=== PATIENT | male | born 1940 | race Caucasian/White ===

== ENCOUNTER → 2023-10-28 07:03 | Outpatient (REF) | payer MEDICARE, OTHER, SELFPAY ==
[2023-10-28] VITALS (8 sets, daily range): BP systolic 55–146; BP diastolic 40–72
[2023-10-28 07:42] LABS: Glucose - Point of Care 110 mg/dl (70-99)
[2023-10-28] MEDS: VANCOCIN 300 ML IV (08:14)
[2023-10-28] MEDS: VANCOCIN 300 MG IV (08:14)
[2023-10-28 10:15] LABS: Glucose - Point of Care 128 mg/dl (70-99)
== END ==
LOC: RADI 07:03
PROVIDERS: ATTENDING PHYSICIAN Internal Medicine Hematology & Oncology; FAMILY PHYSICIAN Family Medicine
DX: C34.12 Malignant neoplasm of upper lobe, left bronchus or lung (principal)
CPT/HCPCS: 36561; 76937; 77001; 82962; 99152; 99153; C1769; C1788

== ENCOUNTER 2023-11-18 19:05 | Inpatient (IN) | payer MEDICARE, OTHER, SELFPAY ==
[2023-11-18] VITALS (7 sets, daily range): BP systolic 102–152; BP diastolic 46–78; BMI 32.6
[2023-11-18 14:56] LABS: COVID-19 Antigen Negative (Negative)
--- NOTE | 2023-11-18 16:22 | ED.GENMED ---
History of Present Illness
General
Chief Complaint: Swelling
Time Seen by Provider: 11/18/23 16:17
Travel History
Have you had any contact with someone who has COVID-19?: No
Do you have any symptoms of coronavirus? Fever > 100 degrees, chills, cough, shortness of breath, sore throat, loss of taste or smell, muscle aches, or headache?: No
History of Present Illness
History of Present Illness:
HPI: Patient presents with bilateral lower extremity edema over the last several days and is also associated with shortness of breath. He has a history of lung cancer. He says that around the time he had bypass years ago he went into heart
failure. Recently, he said he is had 10 pounds of unintentional weight gain, Dr. Ferguson here for centimeter for further evaluation. He reports having a fever but is afebrile currently and says he had some UTI type of symptoms recently as well.
EXAM:
GENERAL: The patient appears volume overloaded but does not appear to be a significant distress. He is reportedly 81 send on room air upon arrival
HEENT: Moist oral mucosa
CARDIOVASCULAR: No murmurs, normal heart rate and rhythm, No chest wall tenderness
PULMONARY: No respiratory distress but is currently on nasal cannula oxygen, breath sounds are diminished at the bases more so on the right, some rales on the left base
ABDOMEN: Soft with no peritoneal signs, no tenderness
NEUROLOGIC: Excellent strength all extremities, no coordination deficits
PSYCHIATRIC: Appropriate mental status, normal insight and judgement
EXTREMITIES: Nontender, 4+ bilateral edema, moves all extremities equally
SKIN: No rash, no lesions
ED COURSE:
4:30 PM: I initially evaluated patient
NUMBER AND COMPLEXITY OF PROBLEMS ADDRESSED AT THE ENCOUNTER
� Chronic conditions affecting care: Diabetes, has had spontaneous pneumothorax in the past, lung cancer, has had cardiac arrest, CHF, CAD/AR, high blood pressure, hyperlipidemia, CKD
� Acute Exacerbation and/or Progression of Chronic Illness: This is an acute problem
� Differential Diagnosis includes: Pulmonary edema, heart failure, pneumonia, venous stasis
AMOUNT AND/OR COMPLEXITY OF DATA TO BE REVIEWED AND ANALYZED
� I performed an independent evaluation of and my interpretation is:
EKG: Sinus 81, leftward axis deviation, right bundle branch block, inferior Q waves, no significant change from 09/14/2023
CT:
X-rays: I personally reviewed x-ray�chest x-ray again shows port and mass in the left upper lobe
Laboratory Studies: White count elevated 25,000, creatinine 1.7 which is near baseline, BNP 1140
Other:
� Review of other/old records: Echo from 10/22/2022 showed EF of 65 to 70%, 'diastolic function indeterminate'
� Clinical information was obtained by an independent historian: I spoke to the daughter at bedside
� Prescriptions/Medications Considered but not given:
� Further testing considered but not performed:
RISK OF COMPLICATIONS AND/OR MORBIDITY OR MORTALITY OF PATIENT MANAGEMENT
� Social determinants of health affecting care: Lives at home
� Discussion with other providers: Notified cardiology; hospitalist for admission at 5:43 PM
� Escalation of care including admission/observation vs risk of discharge considered: The patient was sent here by cardiology for hospitalist. Eddie hawkins. Leukocytosis is noted however his mental status is excellent. Will
give broad-spectrum antibiotics. Vancomycin was given as he does have a port and Invanz was given as he does have a cephalosporin allergy and I chose not to use a quinolone as he does have renal insufficiency.
Past History
Past History
ED Past Medical History: CAD, HTN, Hypercholesterolemia, Renal failure, Other (BPH, urinary retention), Other (Peripheral arterial disease) and Other (V tach/V-fib arrest, AR, CAD, CABG, PCI LM and LCx 06/2015, A-fib, PVD with multiple peripheral
interventions including bypass, AAA)
ED Past Surgical History: Cardiac (CABG x 26 Apr 2015, Bilateral carotid endarterectomies 2018, ), Cholecystectomy and Other (Vascular lower extremity bypass)
Social History
Tobacco: Former smoker
Alcohol: None
Drug: None
Personal:
Living: with family
Phy Exam
Physical Exam
Physical Exam:
See HPI
Scores
Heart Failure Risk
Heart Failure Risk Score: Not Applicable
Course
Orders/Labs/Results
Orders:
Orders
11/18/23 14:11
Electrocardiogram (*1) Urgent
Reason for Study: Shortness of Breath
11/18/23 14:12
EKG- Treatment ONCE
11/18/23 14:18
COVID-19 Antigen Urgent
Source: Nasal Swab
Influenza A+B Rapid Molecular Urgent
RADHA Source: Nasal Swab
Specimen Description:
11/18/23 16:38
Furosemide [Lasix] 40 mg IV NOW STA
11/18/23 16:41
Chest [CR Chest - 2 Views ] Urgent
Comment:
Reason For Exam: hypoxia, sob
11/18/23 16:42
Complete Blood Count/With Diff Urgent
Comprehensive Metabolic Panel Urgent
NT-proBNP Urgent
11/18/23 16:54
Urinalysis Reflex To Culture Urgent
Date Specimen was Collected: 11/18/23
Time Specimen was Collected: 16:41
Urine Microscopic Reflex Cult Urgent
Urine Culture Urgent
RADHA Source: U
Specimen Description:
Date Specimen was Collected: 11/18/23
Time Specimen was Collected: 16:41
11/18/23 17:49
Lactic Acid Q4H
Comment: CANCEL 2nd LACTIC ACID IF 1st LACTIC ACID IS LESS THAN 2
Blood Culture Q30M
RADHA Source: Blood/Venous
Specimen Description:
11/18/23 17:54
Blood Culture Q30M
RADHA Source: Blood/Venous
Specimen Description:
11/18/23 17:56
Ertapenem [Invanz] 1,000 mg 0.9% Sodium Chloride [Nss] 50 ml IV NOW
11/18/23 17:58
Vancomycin [Vancocin] 2,000 mg 0.9% Sodium Chloride 500 ml [Nss] 500 ml IV NOW
Abnormal Lab Results
11/18/23 11/18/23
16:42 16:54
WBC 25.3 H 10^3/uL
(4.8-10.8)
RBC 3.37 L 10^6/uL
(4.70-6.10)
Hgb 10.0 L g/dL
(13.0-18.0)
Hct 30.4 L %
(39.0-52.0)
MCHC 32.9 L g/dL
(33.0-37.0)
RDW 15.2 H %
(11.5-14.5)
Abs Immat Gran (auto) 0.4 H 10^3/uL
(0-0.05)
Absolute Neuts (auto) 20.9 H 10^3/uL
(1.4-6.5)
Absolute Monos (auto) 1.7 H 10^3/uL
(0.1-0.6)
Absolute Eos (auto) 0.8 H 10^3/uL
(0-0.7)
Immature Gran % 1.7 H %
(0-0.5)
Neutrophils % 82.3 H %
(42.2-75.2)
Lymphocytes % 5.9 L %
(20.5-51.1)
BUN 31 H mg/dl
(9-20)
Creatinine 1.7 H mg/dL
(0.7-1.3)
Albumin 3.4 L g/dl
(3.5-5.0)
Urine Nitrite (Reflex) Positive A
(Negative)
Leukocyte Esterase Rfl 2+ A
(Negative)
Urine WBC (Reflex) 21-25 A /HPF
(0-5)
Urine Bacteria (Reflex) Many A
(Negative)
11/18/23 16:42
11/18/23 16:42
Vital Signs
Initial and Last Documented VS:
Initial Vital Signs
Temp Pulse Resp BP Pulse Ox
98.1 F 77 18 123/57 92
11/18/23 14:07 11/18/23 14:07 11/18/23 14:07 11/18/23 14:07 11/18/23 14:07
Last Documented Vital Signs
Temp Pulse Resp BP Pulse Ox
101.5 F H 90 22 143/63 89
11/18/23 18:18 11/18/23 18:15 11/18/23 18:15 11/18/23 18:01 11/18/23 18:15
*Critical Care Note
Total Time (30-74mins, 75-104mins- exclusive of procedures): Not Applicable
ED Attending Note
-
Portions of this chart may have been created with voice recognition software.� Occasional wrong word or��sound alike� substitutions may have occurred due to the inherent limitations of voice recognition software.
Discharge Plan
Departure
Patient Disposition: Admit
Date of Disposition: 11/18/23
Time of Disposition: 17:33
Presentation/result/management discussed w/ accepting MD/DO: Hospitalist
Discharge Problem:
Heart failure
Prescriptions:
No Action
aspirin [Adult Low Dose Aspirin] 81 MG tablet,delayed release (DR/EC)
81 mg PO DAILY@1600
furosemide 20 MG tablet
20 mg PO BID@0800,1600
rosuvastatin [Crestor] 40 MG tablet
40 mg PO DAILY@1600
insulin glargine [Lantus U-100 Insulin] 1,000 UNITS/10 ML solution
35 units SC HS
psyllium Packet
1 packet PO QPM Qty: 0
tamsulosin 0.4 mg Capsule
0.4 mg PO BID
losartan 100 mg Tablet
100 mg PO DAILY@1600
clopidogrel [Plavix] 75 mg Tablet
75 mg PO DAILY@1600
glipizide 5 mg Tablet Extended Release 24hr
5 mg PO BID@0800,1700
Visbiome 112.5 billion cell Capsule
1 cap PO DAILY
azelastine 137 mcg (0.1 %) Aerosol,[place]
1 spray INTRANASAL BID
cholecalciferol (vitamin D3) [Vitamin D3] 50 mcg (2,000 unit) Tablet
100 mcg PO DAILY
guaifenesin [Mucinex] 600 mg Tablet Extended Release 12hr
600 mg PO BID
diphenhydramine-acetaminophen [Tylenol PM Extra Strength] 25-500 mg Tablet
1 tab PO HS
acetaminophen [Tylenol 8 Hour] 650 mg tablet extended release
650 mg PO Q8H PRN (Reason: prostate)
Interventions
Interventions:
*Risk Screen - Suicide Last Done: 11/18/23 18:10
*General Assessment Last Done: 11/18/23 14:07
*Neglect/Abuse Screening Last Done: 11/18/23 18:10
*ED COVID-19 Vaccine History Last Done: 11/18/23 14:07
ED- Cardiac Assessment Last Done: 11/18/23 16:45
ED- Pulmonary Assessment Last Done: 11/18/23 16:45
ED-Skin Assessment Last Done: 11/18/23 16:46
[2023-11-18 16:48] LABS: % Basophils 0.4 % (0-2); % Immature Granulocytes 1.7 % (0-0.5); % Lymphocytes 5.9 % (20.5-51.1); % Monocytes 6.7 % (1.7-9.3); % Neutrophils 82.3 % (42.2-75.2); Absolute Basophils 0.1 10^3/uL (0-0.2); Absolute Eosinophils 0.8 10^3/uL (0-0.7); Absolute Immature Granulocytes 0.4 10^3/uL (0-0.05); Absolute Lymphocytes 1.5 10^3/uL (1.2-3.4); Absolute Monocytes 1.7 10^3/uL (0.1-0.6); Absolute Neutrophils 20.9 10^3/uL (1.4-6.5); Hematocrit 30.4 % (39.0-52.0); Mean Corp Hgb Conc. 32.9 g/dL (33.0-37.0); Mean Corpuscular Hgb 29.7 pg (27.0-31.0); Mean Corpuscular Volume 90.2 fL (80.0-94.0); Mean Platelet Volume 9.5 fL (7.4-10.4); Nucleated Red Blood Cells % 0 % (-); Platelet Count 282 10^3/uL (130-400); Red Blood Cell Count 3.37 10^6/uL (4.70-6.10); Red Cell Dist. Width 15.2 % (11.5-14.5); White Blood Cell Count 25.3 10^3/uL (4.8-10.8)
[2023-11-18 16:59] LABS: Urine Albumin Negative (Neg - Trace); Urine Bilirubin Negative (Negative); Urine Character Clear (Clear); Urine Color Yellow; Urine Glucose Negative (Negative); Urine Ketone Negative (Negative); Urine Leukocyte 2+ (Negative); Urine Nitrite Positive (Negative); Urine Occult Blood Negative (Negative); Urine Urobilinogen Negative (Neg - 1+)
[2023-11-18 17:05] LABS: ALT (SGPT) 19 U/L (0-50); AST (SGOT) 25 U/L (17-59); Albumin 3.4 g/dl (3.5-5.0); Alkaline Phosphatase 112 U/L (38-126); Blood Urea Nitrogen 31 mg/dl (9-20); Calcium 8.6 mg/dl (8.4-10.2); Carbon Dioxide 23 mmol/L (22-30); Chloride 104 mmol/L (98-107); Glucose 90 mg/dl (70-99); Potassium 4.4 mmol/L (3.5-5.1); Sodium 135 mmol/L (135-145); Total Bilirubin 0.5 mg/dl (0.2-1.3); eGFR 39.75
[2023-11-18 17:07] LABS: Urine Red Blood Cell 0-2 /HPF (0-2)
[2023-11-18 17:08] LABS: Urine Bacteria Many (Negative); Urine White Cell 21-25 /HPF (0-5)
[2023-11-18 17:13] LABS: NT-proBNP 1140 pg/ml
[2023-11-18] MEDS: LASIX 40 MG IV (17:50)
[2023-11-18 18:10] LABS: Lactic Acid 0.9 mmol/L (0.7-2.0)
[2023-11-18] MEDS: INVANZ 60 MG IV (18:22)
--- NOTE | 2023-11-18 18:24 | HPS.HSE ---
Addendum entered and electronically signed by Manjula Knott MD 11/19/23 06:09:
I saw and examined the patient.
The FOUNDER AND CEO or PA's� H&P note was reviewed and I agree with the note.
Comment: 83 years old male presented with weakness, weight gain and fever for 1 day duration
Physical Exam
General: Other (no acute distress, conversant)
HEENT: Moist mucous membranes and PERRLA
Respiratory: Clear; No Wheezes, Rales or Rhonchi
Cardiac: S1/S2 and Regular Rhythm; No Murmur
GI: Soft, Non Distended, Normal Bowel Sounds.
Musculoskeletal: No Clubbing, No Cyanosis and No Edema
Neuro: AO x 3, followed commands.
Psych: Calm; No agitation.
Assessment and plan
# Fever
Admit the patient to the hospital.� Patient reported dysuria.� No gastrointestinal symptoms.� No hypoxia.� No coughing at home.� He reported weight gain and exertional shortness of breath but not unusual for him.
Blood culture, urine test and urine culture.� Start the patient on broad-spectrum antibiotic.� Monitor temperature curve and white blood cell count.� Order chest x-ray. �COVID test is negative.� Negative lactic acid.
# Suspected acute on chronic heart failure with a preserved ejection fraction
Patient complained of weight gain.� Decreasing urine.� He reported he received different brand of furosemide and he was not urinating enough.� He used his 's medicine and voided more.
Start the patient on IV Lasix 40 mg twice daily.� Continue home medication.� Monitor weight.
# Chronic kidney disease stage IIIb.� Creatinine 1.9 in August 2023, creatinine is 1.7 upon admission.� Monitor renal function while on diuretics.
# History of BPH and obstruction.� Monitor for urinary retention.� Ordered a bladder scan
# History of coronary artery disease.� No chest pain.
#Paroxysmal atrial fibrillation.� Continue with rate control.
#Primary hypertension
#Diabetes.� Insulin sliding scale.
# PVD and carotid artery disease
Total time spent to see the patient, examine the patient on the floor, review data and lab results, discuss treatment plan with patient, nursing staff, ER doctor around 75 minutes
Original Note:
Family Physician
-
Family Physician: Rodrigo Villa
Chief Complaint
-
Shortness of breath and lower ext edema
History of Present Illness
Pt is an 83yo M w/ a PMH of HTN, HLD, CHF, Cardiac Arrest, CAD/FL, Lung Cancer (Last chemo on 10/31/23, received q3 weeks), CKD-III, and DM-II who is presenting to the ED c/o SOB and lower extremity edema x 3 days. The patient states that he was
seen by his Oncologist this AM and concern regarding his peripheral edema was discussed. Pt noted he already had cardiology appt scheduled for this afternoon so Onc agreed to let him go to that appt. Mortgage Operations Manager sent pt to ED after visit. The
patient reports SOB x 3days which is worse at rest and when laying down. He states he noticed an increased weight change which he estimates to be around 10lbs over the last 2-3 days. He admits to fever with a Tmax of 101.1F last night. He admits to
chills, sweats, abdominal distention, burning with urination and decreased appetite x 2-3 days. Pt denies chest pain, abdominal pain, nausea or vomiting, hematuria or difficulty urinating.
Medical History
Past Medical History
Past Medical History: Reports Other
Additional Past Medical History:
Coronary Artery Disease s/p CABG and Stent
Carotid Artery Stenosis s/p Bilateral Carotid Endarterectomy
Peripheral Artery Disease s/p Bilateral Lower Ext Bypass
V. Tach Arrest
Paroxysmal Atrial Fibrillation
Essential Hypertension
Hyperlipidemia
Diabetes Mellitus, Type II
CKD Stage III
BPH
Obstructive Sleep Apnea
Squamous Cell Lung Cancer s/p Radiation, currently on chemotherapy
Past Surgical History: Reports Other
Additional Past Surgical History:
CABG
Bilateral Carotid Endarterectomy
Bilateral Lower Extremity Bypass
Cholecystectomy
Social History
Tobacco: Former Smoker
Alcohol: None
Drug: None
Family History
Family History: Not pertinent
Allergies / Home Medications
Allergies reflects when Allergies were last updated in [facility].
Home Medications with original date entered in [facility]
Allergy/Medication List:
Allergies
Allergy/AdvReac Type Severity Reaction Status Date / Time
ZACHARY Inhibitors Allergy Shortness Verified 11/18/23 14:11
of
Breath-possible
angioedema-pharm
to review
cephalexin Allergy Rash Verified 11/18/23 14:11
cephalexin monohydrate Allergy Rash Verified 11/18/23 14:11
[From Keflex]
Iodinated Contrast Media Allergy affected Verified 11/18/23 14:11
[Iodinated Contrast Media - kidneys
Oral and]
sulfamethoxazole Allergy Rash Verified 11/18/23 14:11
[From Bactrim]
trimethoprim [From Bactrim] Allergy Rash Verified 11/18/23 14:11
Home Medications
aspirin 81 mg tablet,delayed release (Adult Low Dose Aspirin) 81 mg PO DAILY@1600 Blood clot prevention/tx 01/22/19
furosemide 20 mg tablet 20 mg PO BID@0800,1600 Fluid retention/Swelling 01/22/19
rosuvastatin 40 mg tablet (Crestor) 40 mg PO DAILY@1600 High cholesterol 01/22/19
insulin glargine 100 unit/mL subcutaneous solution (Lantus U-100 Insulin) 35 units SC HS Diabetes 03/07/20
losartan 100 mg tablet 100 mg PO DAILY@1600 Blood pressure 07/15/22
psyllium 1 packet PO QPM Constipation ##0 07/15/22
tamsulosin 0.4 mg capsule 0.4 mg PO BID Urinary issue 07/15/22
clopidogrel 75 mg tablet (Plavix) 75 mg PO DAILY@1600 Blood clot prevention/tx 10/22/22
Lactobac no.2-Bifidobac no.1-S. thermo 112.5 billion cell capsule (Visbiome) 1 cap PO DAILY Supplement 11/17/22
glipizide 5 mg tablet, extended release 24 hr 5 mg PO BID@0800,1700 Diabetes 11/17/22
azelastine 137 mcg (0.1 %) nasal spray aerosol 1 spray intranasal BID 09/14/23
cholecalciferol (vitamin D3) 50 mcg (2,000 unit) tablet (Vitamin D3) 100 mcg PO DAILY 09/14/23
guaifenesin 600 mg tablet, extended release 12 hr (Mucinex) 600 mg PO BID 09/14/23
diphenhydramine 25 mg-acetaminophen 500 mg tablet (Tylenol PM Extra Strength) 1 tab PO HS 10/28/23
acetaminophen 650 mg tablet,extended release (Tylenol 8 Hour) 650 mg PO Q8H PRN prostate 11/18/23
Review of Systems
-
A 12 point ROS was completed and negative except as noted: Yes
Constitutional: Reports Fever
Respiratory: Reports Trouble Breathing
Cardiac: Denies Chest Pain
: Reports Dysuria
Musculoskeletal: Reports Edema
Physical Exam
Vital Signs
Vital Signs
Temp Pulse Resp BP Pulse Ox
101.5 F H 90 22 143/63 89
11/18/23 18:18 11/18/23 18:15 11/18/23 18:15 11/18/23 18:01 11/18/23 18:15
Physical Exam
General: Comfortable, Conversant and Other (Some conversational dyspnea with oxygen saturation dipping to 89% on 2L)
HEENT: Oxygen (Nasal Cannula)
Respiratory: Rales (Right Base) and Other (Decreased breath sounds left base)
Cardiac: S1/S2 and Regular Rhythm
GI: Soft and Non Tender
Rectal: Other
Musculoskeletal: No Clubbing, No Cyanosis and Other (+4 pitting edema bilateral lower extremities)
Skin: Warm and Dry
Neuro: Awake, Alert and Oriented
Psych: Calm
Laboratory Results
-
11/18/23 16:42
11/18/23 16:42
Laboratory Results
Lactic Acid Cancelled 11/18/23 21:45
Total Bilirubin 0.5 mg/dl (0.2-1.3) 11/18/23 16:42
AST 25 U/L (17-59) 11/18/23 16:42
ALT 19 U/L (0-50) 11/18/23 16:42
Alkaline Phosphatase 112 U/L (38-126) 11/18/23 16:42
Impression/Plan
-
Acute Hypoxic Respiratory Insufficiency secondary to Acute Heart Failure and Sepsis
-Continue supplemental oxygen
-Attempt to wean prior to discharge
Acute Heart Failure with preserved EF
-Consult Cardiology
-Continue Lasix 40mg IV BID
-Monitor Is&Os and Daily Weights
Sepsis, possibly related to UTI
-Continue vancomycin and meropenem
-Await urine and blood cultures
Coronary Artery Disease s/p CABG and Stent
Carotid Artery Stenosis s/p Bilateral Carotid Endarterectomy
Peripheral Artery Disease s/p Bilateral Lower Ext Bypass
-Continue aspirin and Plavix
Paroxysmal Atrial Fibrillation
-Patient is not on anticoagulation as outpatient
-Monitor on Telemetry
Essential Hypertension
-Continue losartan
Hyperlipidemia
-Continue Crestor
Diabetes Mellitus, Type II
-Continue Lantus
-Hold Glipizide
-Monitor sugars and continue coverage insulin
CKD Stage III
-Monitor creatinine closely while on diuretics
BPH
-Continue Flomax
-Monitor bladder scans
Squamous Cell Lung Cancer s/p Radiation and Chemotherapy
-Last Chemo October 31
-Follows with [facility]
DVT proph: Lovenox
Code Status: Full Code
--- NOTE | 2023-11-18 18:27 | W.PN.UPDATE ---
Update Note
Progress Note Update
I saw and examined the patient.
The CANVASS MANAGER or PA's H&P note was reviewed and I agree with the note.
Comment: 83 years old male presented with weakness, weight gain and fever for 1 day duration
Physical Exam
General: Other (no acute distress, conversant)
HEENT: Moist mucous membranes and PERRLA
Respiratory: Clear; No Wheezes, Rales or Rhonchi
Cardiac: S1/S2 and Regular Rhythm; No Murmur
GI: Soft, Non Distended, Normal Bowel Sounds.
Musculoskeletal: No Clubbing, No Cyanosis and No Edema
Neuro: AO x 3, followed commands.
Psych: Calm; No agitation.
Assessment and plan
# Fever
Admit the patient to the hospital.� Patient reported dysuria.� No gastrointestinal symptoms.� No hypoxia.� No coughing at home.� He reported weight gain and exertional shortness of breath but not unusual for him.
Blood culture, urine test and urine culture.� Start the patient on broad-spectrum antibiotic.� Monitor temperature curve and white blood cell count.� Order chest x-ray. �COVID test is negative.� Negative lactic acid.
# Suspected acute on chronic heart failure with a preserved ejection fraction
Patient complained of weight gain.� Decreasing urine.� He reported he received different brand of furosemide and he was not urinating enough.� He used his 's medicine and voided more.
Start the patient on IV Lasix 40 mg twice daily.� Continue home medication.� Monitor weight.
# Chronic kidney disease stage IIIb.� Creatinine 1.9 in August 2023, creatinine is 1.7 upon admission.� Monitor renal function while on diuretics.
# History of BPH and obstruction.� Monitor for urinary retention.� Ordered a bladder scan
# History of coronary artery disease.� No chest pain.
#Paroxysmal atrial fibrillation.� Continue with rate control.
#Primary hypertension
#Diabetes.� Insulin sliding scale.
# PVD and carotid artery disease
Total time spent to see the patient, examine the patient on the floor, review data and lab results, discuss treatment plan with patient, nursing staff, ER doctor around 75 minutes
[2023-11-18] MEDS: VANCOCIN 540 MG IV (18:43)
--- NOTE | 2023-11-18 20:15 | PTCARENOTE ---
Patient arrived to 339-1 from ED via stretcher, pulled from stretcher to bed with assist of 3 person. Patient is awake and alert, oriented, no complaints at this time. Denies pain, denies SOB at this time but does admit to HUERTA when needing to move
around in bed. Patient is maintained on 3LNC at this time, humidification added as patient is c/o dryness and irritation to nose. IV vanco running and maintained from ED initiation through LCW port - no issues. Wearing glasses. Initiated on
christian [employer] reader #[id number] - NSR with BBBC, HR 80s. Call alcaraz with patient and within reach, will ring for assistance as needed. Will monitor.
--- NOTE | 2023-11-18 20:53 | PHA.VAN.IN ---
Assessment
- Assessment
Renal Function: Appears elevated from baseline (10/23/22 BASELINE SCR: 1.4)
Concomitant Antimicrobials: MEROPENEM
- Previous Dosing Experience
Previous Regimen: SINGLE DOSES ONLY
AUC Dosing Plan
- Dosing Variables
Dosing Weight (kg): 105.9
Dosing CrCl (ml/min): 41
Vd coefficient (L/kg): 0.6
- Empiric Dosing
Initial / Loading Dose: 2GM
Maintenance Regimen: 1250MG IV Q24H
Estimated AUC (mcg*h/mL): 527
Estimated Peak (mcg*h/mL): 32.7
Estimated Trough (mcg/ml): 13.8
Estimated Half Life (H): 18
Pharmacokinetics Vancomycin I
- -
Patient Age: 83
Patient Sex: Male
Vancomycin Day #: 1
Indication: Prophylaxis (Surg,Hiv,...)
Requesting Provider: BINH
Pertinent Antimicrobial Allergies:
Allergies
cephalexin Allergy (Verified 11/18/23 14:11)
Rash
cephalexin monohydrate [From Keflex] Allergy (Verified 11/18/23 14:11)
Rash
sulfamethoxazole [From Bactrim] Allergy (Verified 11/18/23 14:11)
Rash
generalized hives and lip swelling
trimethoprim [From Bactrim] Allergy (Verified 11/18/23 14:11)
Rash
generalized hives and lip swelling
Height / Weight:
Height 5 ft 11 in
Actual Weight 105.942 kg
- Vital Signs / Lab Results
Temp Pulse Resp BP Pulse Ox
98.6 F 82 18 117/56 95
11/18/23 20:31 11/18/23 20:31 11/18/23 20:31 11/18/23 20:31 11/18/23 20:31
Lab Results - Hematology
11/18/23
16:42
WBC 25.3 H
Lab Results - Chemistry
11/18/23
16:42
BUN 31 H
Creatinine 1.7 H
Albumin 3.4 L
11/18/23 11/18/23
17:49 21:45
Lactic Acid 0.9 Cancelled
Lab Results - Urine
11/18/23
16:54
Urine Nitrite (Reflex) Positive A
Leukocyte Esterase Rfl 2+ A
Urine WBC (Reflex) 21-25 A
Urine Bacteria (Reflex) Many A
Microbiology Results
11/18/23 14:18 Influenza Types A & B (MARY) - Final
Nasal Swab Negative for Influenza A & B, NAAT
Negative results must be combined with clinical observations
and patient history.
Nucleic Acid Amplification test (NAAT)performed on the
[employer] platform.
[2023-11-18] MEDS: MUCINEX 600 MG PO (21:08)
[2023-11-18] MEDS: BENADRYL 25 MG PO (21:08)
[2023-11-18] MEDS: TYLENOL 500 MG PO (21:08)
[2023-11-18] MEDS: FLOMAX 0.400000000000000022 MG PO (21:08)
[2023-11-18 21:32] LABS: Glucose - Point of Care 108 mg/dl (70-99)
[2023-11-18] MEDS: LANTUS 0.349999999999999978 UNITS SC (21:34)
[2023-11-19] MEDS: STERILE WATER FOR INJECTION 10 ML IV ×3 (03:08→18:38)
[2023-11-19] MEDS: MERREM 500 MG IV ×3 (03:08→18:38)
[2023-11-19 03:15] VITALS: BP 144/62
[2023-11-19 05:09] LABS: Hematocrit 29.5 % (39.0-52.0); Hemoglobin 9.5 g/dL (13.0-18.0); Mean Corp Hgb Conc. 32.2 g/dL (33.0-37.0); Mean Corpuscular Hgb 29.1 pg (27.0-31.0); Mean Corpuscular Volume 90.2 fL (80.0-94.0); Mean Platelet Volume 9.4 fL (7.4-10.4); Platelet Count 281 10^3/uL (130-400); Red Blood Cell Count 3.27 10^6/uL (4.70-6.10); Red Cell Dist. Width 15.2 % (11.5-14.5); White Blood Cell Count 26.1 10^3/uL (4.8-10.8)
[2023-11-19 05:39] LABS: Blood Urea Nitrogen 35 mg/dl (9-20); Calcium 8.6 mg/dl (8.4-10.2); Carbon Dioxide 24 mmol/L (22-30); Chloride 101 mmol/L (98-107); Estimated Creatinine Clearance 44 ml/min; Glucose 108 mg/dl (70-99); Magnesium 2.1 mg/dl (1.6-2.3); Potassium 4.6 mmol/L (3.5-5.1); Sodium 136 mmol/L (135-145); eGFR 42.75
[2023-11-19 06:00] VITALS: BMI 32.4
[2023-11-19] MEDS: VANCOCIN 275 MG IV (06:27)
[2023-11-19 07:30] VITALS: BP 136/57
--- NOTE | 2023-11-19 07:41 | W.PN.CARDCBS ---
Today's Communication / Plan
-
Continue IV Lasix. Creatinine stable at 1.6
CHF education
Check echocardiogram on Tuesday
Continue antibiotics
Impression / Plan
-
PCP: VJ Bro
CDY: Jia Blackburn MD
He has a complex medical history including VT/VF Cardiac arrest with LM stenosis urgent CABGx1 KINCAID-LAD 04/2015, PCI LM and LCx 06/2015, PAfib, PVD with multiple peripheral interventions including fem bypass, b/l CEA 2018, AAA, HTN, HLD, DM2, CKD3,
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
Impression:
Acute on chronic heart failure with preserved ejection fraction
Fever/UTI
CAD - 04/2015 urgent CABGx1 KINCAID-LAD (Cardiac arrest)
-06/2015 PCI LM and LCx
-10/22/22 Post cath with patent KINCAID-LAD and stents, non new occlusive disease
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
COPD/Emphysema
PVD - fem bypass and [employer] [facility] 2016
CEA b/l 2018
AAA 3.2cm
PAF
CDK3a
HTN
HLD
KIM
RBBB
DM2
Former smoker
Cardiac catheterization 10/22/2022:�CONCLUSIONS
1.� Stable coronary artery disease with prior left main to left circumflex stent patent.
2.� Known chronic total occlusion of the RCA which appears stable.
3.� Patent KINCAID to LAD graft.
4.� Elevated LVEDP
Echo 10/22/2022�EF 65 to 70%.� Mild MR.� Aortic valve gradients 20/8 mmHg peak/mean consistent with mild aortic valve stenosis.� Trace TR with PA pressure 30 to 35 mmHg
PLan:
He has had a 20 pound weight gain over the past several weeks and starting chemotherapy. Continue Lasix 40 mg IV twice daily.
His creatinine is overall improved and down to 1.6. Continue to follow.
Check repeat echocardiogram.
Continue antibiotics for fever and likely UTI. Await urine and blood cultures.
Continue medical therapy for complex coronary artery disease. Continue aspirin, Plavix, Crestor, and losartan. He is not on beta-howard therapy. Will review records as to why,? COPD versus hypotension/bradycardia. Blood pressure has been
labile. Would consider reducing losartan.
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
Progress Note - [facility] Nurse
Subjective
Date of Service: November 19, 2023
He is diuresing well and his weight is down some. He still has edema in his legs. He had fever in the emergency room yesterday but is afebrile overnight.
Objective
Labs:
11/19/23 04:55
11/19/23 04:55
Labs
Hgb 9.5 g/dL (13.0-18.0) L 11/19/23 04:55
Hct 29.5 % (39.0-52.0) L 11/19/23 04:55
Plt Count 281 10^3/uL (130-400) 11/19/23 04:55
Sodium 136 mmol/L (135-145) 11/19/23 04:55
Potassium 4.6 mmol/L (3.5-5.1) 11/19/23 04:55
BUN 35 mg/dl (9-20) H 11/19/23 04:55
Creatinine 1.6 mg/dL (0.7-1.3) H 11/19/23 04:55
Glucose 108 mg/dl (70-99) H 11/19/23 04:55
Vital Signs and I&O:
Vital Signs
Temp Pulse Resp BP Pulse Ox
98.5 F 85 20 144/62 95
11/19/23 03:15 11/19/23 03:15 11/19/23 03:15 11/19/23 03:15 11/19/23 03:15
Vital Signs
Temp Pulse Resp BP Pulse Ox
98.5 F 85 20 144/62 95
11/19/23 03:15 11/19/23 03:15 11/19/23 03:15 11/19/23 03:15 11/19/23 03:15
Intake & Output
11/17/23 11/18/23 11/19/23 11/20/23
06:59 06:59 06:59 06:59
Intake Total 700 / 700
Output Total 550 / 550
Balance 150 / 150
Physical Exam
Physical Exam
GEN: No distress, awake, Ox3
HEENT: supple, anicteric, mmm
LUNGS: Scattered rhonchi
CV: Reg, S1/S2, 1/6 syst LSB, S4+
ABD: soft, BS+, NT/ND
EXT: +1 edema
NEURO: Gross non-focal
SKIN: No rash
[2023-11-19 07:58] LABS: Glucose - Point of Care 119 mg/dl (70-99)
--- NOTE | 2023-11-19 08:33 | PHA.VAN.FU ---
Vancomycin Assessment / Plan
- Assessment
Renal Function: Stable
WBC's are: Stable
In the past 24 hrs, patient has been: Febrile (101.5f)
Concomitant Antimicrobials: meropenem
- Dosing Plan
Continue: 1250mg q24h
- Monitoring Plan
No level(s) ordered at this time: consider next few days, if kidney fx stays similar
- Follow Up
Pharmacy will continue to follow.
Vancomycin Follow UP
- -
Patient Age: 83
Patient Sex: Male
Vancomycin Day #: 2
Indication: Prophylaxis (Surg,Hiv,...)
Requesting Provider: BINH
Pertinent Antimicrobial Allergies:
Allergies
cephalexin Allergy (Verified 11/18/23 14:11)
Rash
cephalexin monohydrate [From Keflex] Allergy (Verified 11/18/23 14:11)
Rash
sulfamethoxazole [From Bactrim] Allergy (Verified 11/18/23 14:11)
Rash
generalized hives and lip swelling
trimethoprim [From Bactrim] Allergy (Verified 11/18/23 14:11)
Rash
generalized hives and lip swelling
Height / Weight:
Height 5 ft 11 in
Actual Weight 105.432 kg
- Vital Signs / Lab Results
Temp Pulse Resp BP Pulse Ox
98.0 F 80 22 136/57 94
11/19/23 07:30 11/19/23 07:30 11/19/23 07:30 11/19/23 07:30 11/19/23 07:30
Lab Results - Hematology
11/18/23 11/19/23
16:42 04:55
WBC 25.3 H 26.1 H
Lab Results - Chemistry
11/18/23 11/19/23
16:42 04:55
BUN 31 H 35 H
Creatinine 1.7 H 1.6 H
Estimated Creat Clear 44
Albumin 3.4 L
11/18/23 11/18/23
17:49 21:45
Lactic Acid 0.9 Cancelled
Lab Results - Urine
11/18/23
16:54
Urine Nitrite (Reflex) Positive A
Leukocyte Esterase Rfl 2+ A
Microbiology Results
11/18/23 14:18 Influenza Types A & B (MARY) - Final
Nasal Swab Negative for Influenza A & B, NAAT
Negative results must be combined with clinical observations
and patient history.
Nucleic Acid Amplification test (NAAT)performed on the
[employer] platform.
[2023-11-19] MEDS: NOVOLOG FLEXPEN-LOW RESISTANCE SC ×2 (08:53→18:20)
[2023-11-19] MEDS: MUCINEX 600 MG PO ×2 (09:04→19:55)
[2023-11-19] MEDS: VISBIOME 1 CAP PO (09:04)
[2023-11-19] MEDS: FLOMAX 0.400000000000000022 MG PO ×2 (09:04→19:55)
[2023-11-19] MEDS: VITAMIN D3 (cholecalciferol) 100 MCG PO (09:05)
[2023-11-19] MEDS: LASIX 40 MG IV ×2 (09:07→18:37)
--- NOTE | 2023-11-19 09:23 | CM ---
CM following re: discharge planning.
Reviewed pt's chart, met with pt.
Pt is an 83 year old male, admitted with primary dx of CHF, Sepsis, UTI.
Pt reports he lives with spouse in 1 , 1 step to enter, has 2 supportive children. Pt described himself as independent in all areas [employer], had [facility] in the past. No DME or SNF history Pt expressed his desire to return back home at discharge.
PCP: Rodrigo Gaspar
Pharmacy: [facility]
D/C plan: home with anticipated no needs. Family to transport at discharge.
CM will follow with discharge plan updates s hospitalization progresses
--- NOTE | 2023-11-19 10:19 | W.PN.HOSP.TC ---
Today's Communication/Plan
-
.
Assessment / Plan
Assessment / Plan
Physical Exam
General: Other (no acute distress, conversant), chronically ill looking but not toxic appearing
HEENT: Moist mucous membranes and PERRLA
Respiratory: Clear; No Wheezes, Rales or Rhonchi
Cardiac: S1/S2 . Right upper chest port: not tender or redness in the area
GI: Soft, Non Distended, Normal Bowel Sounds.
Musculoskeletal: No Clubbing, No Cyanosis and No Edema
Neuro: AO x 3, followed commands.
Psych: Calm; No agitation.
83 years old male presented with weakness, weight gain and fever for 1 day duration
Assessment and plan
# Sepsis POA ( fever, tachycardia, leukocytosis)
He had fever but no fever over night. Source could be UTI due to hx of dysuria. Urine looked clear but culture is pending. Post site looks clean with no redness or tenderness.
No gastrointestinal symptoms.� Liver function test was normal. Mild hypoxia, he was placed on mild O2.� No coughing at home.� He reported weight gain and exertional shortness of breath but not unusual for him after his lung cancer dx.
Chest x-ray no evidence of pneumonia
Await blood & urine cultures
Abdomen is distended, pt denies pain.
c/w broad-spectrum antibiotic.� Monitor temperature curve and white blood cell count.� �COVID test is negative.� Negative lactic acid.
Appreciate ID help
# Acute on chronic heart failure with preserved ejection fraction
Continue with diuretic Lasix 40 mg twice a day. Reduce losartan and add holding parameter in favor of diuretic treatment at this point.
Monitor weight.
Order echo
Appreciate cardiology input
# Anemia
likely of chronic disease
monitor daily
expect drop with ongoing chemotherapy
no bleeding
# Hx of lung cancer
follows with Dr Shin, will notify office.
# Chronic kidney disease stage IIIb.� Creatinine 1.9 in August 2023, creatinine is 1.7 upon admission.
Creatinine 1.6. Continue to monitor while on diuretics.
# History of BPH and obstruction.� Monitor for urinary retention.� Ordered a bladder scan
# History of coronary artery disease.� No chest pain.
#Paroxysmal atrial fibrillation.� Continue with rate control.
#Primary hypertension, lower Losartan while using IV diuretic to avoid hypotension.
#Diabetes.� Insulin sliding scale.
# PVD and carotid artery disease.
Total time spent to see the patient, examine the patient on the floor, review data and lab results, discuss treatment plan with patient, nursing staff around 55 minutes
Anticipated Discharge: > 48 hours
Subjective/Interval History
-
Date of Service: November 19, 2023
No fever over night
No abd pain
No chest pain
Objective Data
-
Labs:
Laboratory Results
11/19/23
04:55
WBC 26.1 H
Hgb 9.5 L
Hct 29.5 L
Plt Count 281
Sodium 136
Potassium 4.6
Chloride 101
Carbon Dioxide 24
BUN 35 H
Creatinine 1.6 H
Glucose 108 H
Calcium 8.6
Vital Signs:
Vital Signs
Temp Pulse Resp BP Pulse Ox
98.0 F 80 22 136/57 94
11/19/23 07:30 11/19/23 07:30 11/19/23 07:30 11/19/23 07:30 11/19/23 07:30
I&O
11/18/23 11/19/23 11/20/23
06:59 06:59 06:59
Intake Total 700 / 700
Output Total 550 / 550
Balance 150 / 150
[2023-11-19 11:10] LABS: Glycohemoglobin (HgbA1c) 8.1 % (4.0-5.6)
[2023-11-19 11:21] VITALS: BP 99/65
--- NOTE | 2023-11-19 12:07 | CON.ID ---
Consultation
-
Date/Time Consultation Requested: 11/19/23 12:05
Date/Time Consultation Performed: 11/19/23 12:07
Requesting Provider: Dr Knott
Performing Provider: Dr Anaya
Reason for Consultation: fever in setting of chemotherapy use
Chief Complaint / Past History
Chief Complaint
fever
History of Present Illness
Mr Alvarez is an 83 year old male with history notable for SCC of the lung s/p radiation currently on chemotherapy (last dose 10/31/23), CKD3, DM2 who presented here for fever, shortness of breath and lower extremity edema with weight gain 10 lbs. +
orthopnea. Also dysuria, fever, abdominal distension and anorexia. No: chest pain, abdominal pain, nausea or vomiting, hematuria
Since arrival here t max 101.5 orally, bp overall stable - most recent reading mild hypotension, wbc on arrival 25 today 26, hgb 9.5, plt 281, L shift is noted, cr baseline around 1.4 currently 1.6, t bili 0.5, ast 25, alkt 19, alk phos 112, UA mild
pyuria many bacteria, covid ag neg, influenza neg, CXR: no pneumonia , urine culture 100K GNR, flu neg, blood cultures x2 in progress,
Past History
Additional Past Medical History:
Coronary Artery Disease s/p CABG and Stent
Carotid Artery Stenosis s/p Bilateral Carotid Endarterectomy
Peripheral Artery Disease s/p Bilateral Lower Ext Bypass
V. Tach Arrest
Paroxysmal Atrial Fibrillation
Essential Hypertension
Hyperlipidemia
Diabetes Mellitus, Type II
CKD Stage III
BPH
Obstructive Sleep Apnea
Squamous Cell Lung Cancer s/p Radiation, currently on chemotherapy
Additional Past Surgical History:
CABG
Bilateral Carotid Endarterectomy
Bilateral Lower Extremity Bypass
Cholecystectomy
Allergy History:
ZACHARY Inhibitors Allergy (Verified 11/18/23 14:11)
Shortness of Breath-possible angioedema-pharm to review
cephalexin Allergy (Verified 11/18/23 14:11)
Rash
cephalexin monohydrate [From Keflex] Allergy (Verified 11/18/23 14:11)
Rash
Iodinated Contrast Media [Iodinated Contrast Media - Oral and] Allergy (Verified 11/18/23 14:11)
affected kidneys
sulfamethoxazole [From Bactrim] Allergy (Verified 11/18/23 14:11)
Rash
trimethoprim [From Bactrim] Allergy (Verified 11/18/23 14:11)
Rash
Medications Reviewed: Yes
Social History
Tobacco: Former Smoker
Alcohol: None
Drug: None
Family History
Family History: Not Pertinent
Review of Systems
Review of Systems
General: Negative Fever or Chills
All systems: All other systems were reviewed and were negative
Vital Signs
Temp Pulse Resp BP Pulse Ox
97.8 F 87 18 99/65 96
11/19/23 11:21 11/19/23 11:21 11/19/23 11:21 11/19/23 11:21 11/19/23 11:21
Physical Exam
Physical Exam
Constitutional: No Acute Distress
Cardiovascular: Regular Rate and S1/S2; Negative Murmur or Rub
Pulmonary: Clear and Symmetric; Negative Wheezes, Rales or Rhonchi
Gastrointestinal: Soft, Non Tender, Non Distended and Normal Bowel Sounds
Skin: Warm and Dry; Negative Rash or Jaundice
Wound: Other (wound on the L great toe - resected callous per patient - no erythema/warmth/tenderness/purulence or drainage)
Lines: Port (L sided, no erythema, warmth, tenderness or drainage)
Lab / Diagnostic Study Results
11/19/23 04:55
11/19/23 04:55
Abs Immat Gran (auto) 0.4 10^3/uL (0-0.05) H 11/18/23 16:42
Absolute Neuts (auto) 20.9 10^3/uL (1.4-6.5) H 11/18/23 16:42
Absolute Lymphs (auto) 1.5 10^3/uL (1.2-3.4) 11/18/23 16:42
Absolute Monos (auto) 1.7 10^3/uL (0.1-0.6) H 11/18/23 16:42
Absolute Basos (auto) 0.1 10^3/uL (0-0.2) 11/18/23 16:42
Immature Gran % 1.7 % (0-0.5) H 11/18/23 16:42
Neutrophils % 82.3 % (42.2-75.2) H 11/18/23 16:42
Lymphocytes % 5.9 % (20.5-51.1) L 11/18/23 16:42
Monocytes % 6.7 % (1.7-9.3) 11/18/23 16:42
Eosinophils % 3.0 % (0-6) 11/18/23 16:42
Basophils % 0.4 % (0-2) 11/18/23 16:42
Lactic Acid Cancelled 11/18/23 21:45
Microbiology Results
Micro:
11/18/23 16:54 Urine Culture - Preliminary
Urine Gram negative bacilli
11/18/23 17:54 Blood Culture - Pending
Blood/Venous
11/18/23 17:49 Blood Culture - Pending
Blood/Venous
11/18/23 14:18 Influenza Types A & B (MARY) - Final
Nasal Swab Negative for Influenza A & B, NAAT
Negative results must be combined with clinical observations
and patient history.
Nucleic Acid Amplification test (NAAT)performed on the
[employer] platform.
Assessment / Plan
UTI - complicated
Fever - resolving
Leukocytosis - persistent
SCC on chemotherapy last dose 10/31
Cephalosporin allergy
- blood cultures x2 no growth to date
- urine culture 100K GNR, pyuria noted
- QTc 460
- agree with meropenem at this time
- stop vancomycin
- follow clinically
[2023-11-19 12:28] LABS: Glucose - Point of Care 168 mg/dl (70-99)
[2023-11-19] MEDS: NOVOLOG FLEXPEN-LOW RESISTANCE 1 UNITS SC (12:47)
--- NOTE | 2023-11-19 15:54 | CON.PUL ---
Consultation
Consultation Request
Date/Time Consultation Requested: 11/19
Date/Time Consultation Performed: 11/19
Reason for Consultation: Shortness of breath
Medical History
-
History of Present Illness:
History obtained from the patient, reviewing the chart and outpatient records. Patient is a pleasant 83-year-old male with history of recently diagnosed lung cancer status post radiation, just completed 1 course of chemotherapy 10/31/2023, chronic
kidney disease, diabetes who presents with 5 days of increased shortness of breath, lower extremity swelling, weight gain. Patient normally sleeps in a recliner. He does not have action therapy at home. Upon arrival to [facility], he was
found to be afebrile, pulse 77, breathing at 18, blood pressure 123/57, 92%. White count 25.3, creatinine 1.2. Patient was given vancomycin and Ertapenem IV therapy along with 1 dose of Lasix. We are asked to help from pulmonary standpoint.
Since admission, patient feels improved with regards to breathing. Throughout this he denies chest pain, falls, syncope, nausea, diarrhea
.
PMH: Hypertension, hyperlipidemia, heart failure, history of cardiac arrest, coronary disease with LA, squamous cell lung cancer status post radiation, chemotherapy, chronic kidney disease, diabetes, peripheral arterial disease with bilateral lower
extremity bypass, carotid endarterectomy bilaterally, bypass surgery with stent in the past, sleep apnea. History of cholecystectomy
Past Medical History
Past Medical History: None (See above)
Past Surgical History: None (See above)
Social History
Tobacco: Former Smoker
Alcohol: Occasional
Drug: None
Personal:
Living: With Family
Employment: Retired
Family History
Family History: Reviewed & Not Pertinent
Allergies / Home Medications
Allergies
Allergy/AdvReac Type Severity Reaction Status Date / Time
ZACHARY Inhibitors Allergy Shortness Verified 11/18/23 14:11
of
Breath-possible
angioedema-pharm
to review
cephalexin Allergy Rash Verified 11/18/23 14:11
cephalexin monohydrate Allergy Rash Verified 11/18/23 14:11
[From Keflex]
Iodinated Contrast Media Allergy affected Verified 11/18/23 14:11
[Iodinated Contrast Media - kidneys
Oral and]
sulfamethoxazole Allergy Rash Verified 11/18/23 14:11
[From Bactrim]
trimethoprim [From Bactrim] Allergy Rash Verified 11/18/23 14:11
Home Medications
Medication Instructions Recorded Confirmed Last Taken Type
aspirin 81 mg tablet,delayed 81 mg PO DAILY@1600 Blood clot 01/22/19 11/18/23 11/17/23 History
release (Adult Low Dose Aspirin) prevention/tx
furosemide 20 mg tablet 20 mg PO BID@0800,1600 Fluid 01/22/19 11/18/23 11/18/23 History
retention/Swelling
rosuvastatin 40 mg tablet (Crestor) 40 mg PO DAILY@1600 High 01/22/19 11/18/23 11/17/23 History
cholesterol
insulin glargine 100 unit/mL 35 units SC HS Diabetes 03/07/20 11/18/23 11/17/23 History
subcutaneous solution (Lantus
U-100 Insulin)
losartan 100 mg tablet 100 mg PO DAILY@1600 Blood pressure 07/15/22 11/18/23 11/17/23 History
psyllium 1 packet PO QPM Constipation ##0 07/15/22 11/18/23 11/17/23 History
tamsulosin 0.4 mg capsule 0.4 mg PO BID Urinary issue 07/15/22 11/18/23 11/18/23 History
clopidogrel 75 mg tablet (Plavix) 75 mg PO DAILY@1600 Blood clot 10/22/22 11/18/23 11/17/23 History
prevention/tx
Lactobac no.2-Bifidobac no.1-S. 1 cap PO DAILY Supplement 11/17/22 11/18/23 11/18/23 History
thermo 112.5 billion cell capsule
(Visbiome)
glipizide 5 mg tablet, extended 5 mg PO BID@0800,1700 Diabetes 11/17/22 11/18/23 11/18/23 History
release 24 hr
azelastine 137 mcg (0.1 %) nasal 1 spray intranasal BID Congestion 09/14/23 11/18/23 11/18/23 History
spray aerosol
cholecalciferol (vitamin D3) 50 100 mcg PO DAILY Supplement 09/14/23 11/18/23 11/18/23 History
mcg (2,000 unit) tablet (Vitamin
D3)
guaifenesin 600 mg tablet, 600 mg PO BID Congestion 09/14/23 11/18/23 11/18/23 History
extended release 12 hr (Mucinex)
diphenhydramine 25 1 tab PO HS Sleep 10/28/23 11/18/23 11/17/23 History
mg-acetaminophen 500 mg tablet
(Tylenol PM Extra Strength)
acetaminophen 650 mg 650 mg PO Q8H PRN prostate 11/18/23 11/18/23 Unknown History
tablet,extended release (Tylenol 8
Hour)
Review of Systems
Vitals / Labs / Diagnostic Testing
Vital Signs
Temp Pulse Resp BP Pulse Ox
97.8 F 87 18 99/65 96
11/19/23 11:21 11/19/23 11:21 11/19/23 11:21 11/19/23 11:21 11/19/23 11:21
Lab Data
11/19/23 04:55
11/19/23 04:55
Microbiology
11/18/23 16:54 Urine Urine Culture - Preliminary
Gram negative bacilli
11/18/23 14:18 Nasal Swab Influenza Types A & B (MARY) - Final
Negative for Influenza A & B, NAAT
Negative results must be combined with clinical observations
and patient history.
Nucleic Acid Amplification test (NAAT)performed on the
[employer] platform.
Diagnostic Testing:
Physical Exam
-
HEENT: Normocephalic and Anicteric
Cardiovascular: S1/S2, Regular Rhythm, Murmur (2/6 systolic murmur) and Peripheral Edema (r)
Respiratory: Wheeze (n), Rales (Few at base), Rhonchi (n) and Non-Labored Respirations
GI: Soft, Non Distended (Obese) and Non Tender
Neurology: Awake, Alert and No Motor Deficits
Skin: Good Color and Other (Mild pallor)
General: Comfortable
Assessment
-
Patient is a 83 year old M with complex cardiac history including VT/VF arrest, CAD s/p CABG 04/2015, PCI LM and LCx 06/2015, Afib, PVD with multiple peripheral interventions including fem bypass, b/l CEA 2018, AAA, COPD/Emphysema, squamous cell lung
cancer left upper lobe status post radiation/chemotherapy 10/31/2023, now presents with increased shortness of breath x 5 days, weight gain, lower extremity swelling, fevers. We are asked to comment on pulmonary status 11/19
Suspected acute heart failure
Preserved ejection fraction
Leukocytosis
Fevers, UTI
Left upper lobe squamous cell lung cancer
Status post XRT/radiation 10/31/2023
Conditions present prior to admission
AFib
CAD s/p CABG KINCAID-LAD 04/2015
PCI LM and LCX 06/2015
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
Former smoker
HTN
Hypercholesterolemia
NIDDM
BPH
RBBB
PVD s/p vein stripping, Fem bypass 2019
b/l CEA 2018
Chronic kidney disease
History of aortic aneurysm
�
Plan/recommendations
At this time, patient appears to be comfortable, subjectively improved following diuresis
Appears to have UTI, fevers subjectively improving
Urine culture 100,000 gram-negative rods moving forward,
Continue with antibiotics per infectious disease. Patient has been placed on meropenem. Vancomycin discontinued
Patient also appears to have responded to treatment for heart failure. Cardiology following
Echocardiogram pending 11/21
Chest x-ray without any acute findings. No evidence of acute radiation interstitial or inflammatory changes
Follow blood sugars
Will follow with you
Diagnostic Data
PFTs 09/02/21: FEV1 2.62L 89%, FVC 4.08L 99%, ratio 64. TLC 6.65L 92%, DLCO 46% (mild obstruction, normal volumes, moderate diffusion impairment)
Reports and relevant images were personally reviewed.
[2023-11-19 16:00] VITALS: BP 166/70
[2023-11-19 17:22] LABS: Glucose - Point of Care 108 mg/dl (70-99)
[2023-11-19] MEDS: COZAAR 25 MG PO (18:37)
[2023-11-19] MEDS: PLAVIX 75 MG PO (18:37)
[2023-11-19] MEDS: ASPIR LOW (ENTERIC COATED) 81 MG PO (18:37)
[2023-11-19] MEDS: CRESTOR 40 MG PO (18:37)
[2023-11-19] MEDS: LOVENOX 40 MG SC (18:38)
[2023-11-19] MEDS: METAMUCIL, KONSYL 1 PACKET PO (18:38)
[2023-11-19 19:05] VITALS: BP 104/50
[2023-11-19 21:39] LABS: Glucose - Point of Care 171 mg/dl (70-99)
[2023-11-19] MEDS: TYLENOL 500 MG PO (21:43)
[2023-11-19] MEDS: BENADRYL 25 MG PO (21:43)
[2023-11-19] MEDS: LANTUS 0.349999999999999978 UNITS SC (21:43)
[2023-11-19 23:15] VITALS: BP 97/52
[2023-11-20] VITALS (8 sets, daily range): BP systolic 91–119; BP diastolic 42–68; BMI 31.9
[2023-11-20] MEDS: STERILE WATER FOR INJECTION 10 ML IV ×2 (01:59→10:03)
[2023-11-20] MEDS: MERREM 500 MG IV ×2 (01:59→10:03)
--- NOTE | 2023-11-20 02:28 | PTCARENOTE ---
Pt. had 22 beat run of v-tach on tele monitor. VSS, pt. asymptomatic. VJ Taylor notified. Magnesium level added to morning lab draw. Plan of care ongoing.
[2023-11-20 06:33] LABS: Blood Urea Nitrogen 37 mg/dl (9-20); Calcium 8.6 mg/dl (8.4-10.2); Carbon Dioxide 27 mmol/L (22-30); Chloride 103 mmol/L (98-107); Estimated Creatinine Clearance 44 ml/min; Glucose 85 mg/dl (70-99); Magnesium 2.1 mg/dl (1.6-2.3); Potassium 4.6 mmol/L (3.5-5.1); Sodium 135 mmol/L (135-145); eGFR 42.75
--- NOTE | 2023-11-20 06:37 | W.PN.UPDATE ---
Update Note
Progress Note Update
RN notified [employer]IST
Pt. had 22 beat run of v-tach on tele monitor. VSS, pt. asymptomatic. Magnesium level 2.1, K 4.6. Patient has hx of V-tach/Vfib. EKG in AM.
[2023-11-20 07:59] LABS: Glucose - Point of Care 113 mg/dl (70-99)
[2023-11-20] MEDS: NOVOLOG FLEXPEN-LOW RESISTANCE SC ×2 (07:59→17:50)
[2023-11-20] MEDS: FLOMAX 0.400000000000000022 MG PO (08:00)
[2023-11-20] MEDS: LASIX 40 MG IV ×2 (08:00→17:54)
[2023-11-20] MEDS: MUCINEX 600 MG PO ×2 (08:00→21:05)
[2023-11-20] MEDS: VITAMIN D3 (cholecalciferol) 100 MCG PO (08:00)
[2023-11-20] MEDS: VISBIOME 1 CAP PO (08:00)
--- NOTE | 2023-11-20 09:44 | W.PN.HOSP.TC ---
Today's Communication/Plan
-
.
Assessment / Plan
Assessment / Plan
Physical Exam
General: Other (no acute distress, conversant), chronically ill looking but not toxic appearing
HEENT: Moist mucous membranes and PERRLA
Respiratory: not much rales. No wheezes.
Cardiac: S1/S2 . Right upper chest port: not tender or redness in the area
GI: Soft, obese, non tender.
Musculoskeletal:, less edema in both legs
Neuro: AO x 3, followed commands.
Psych: Calm; No agitation.
83 years old male presented with weakness, weight gain and fever for 1 day duration
Assessment and plan
# Sepsis POA ( fever, tachycardia, leukocytosis) due to E Coli UTI
No recurrent fever. No more dysuria.
No gastrointestinal symptoms.� Liver function test was normal. Mild hypoxia, he was placed on mild O2, will wean off.
� No coughing at home.� He reported weight gain and exertional shortness of breath but not unusual for him after his lung cancer dx.
Chest x-ray no evidence of pneumonia
Blood culture no growth
Urine with E Coli
c/w Meropenem
High WBC c/w recent G-CSF he received in October.
�COVID test is negative.� Negative lactic acid.
Appreciate ID help
# Acute on chronic heart failure with preserved ejection fraction
Continue with diuretic Lasix 40 mg twice a day. Reduced losartan but will hold due to low Bp.
Monitor weight, seems to come down, less edema in the legs
Order echo
Appreciate cardiology input
# Anemia
likely of chronic disease
monitor daily
no bleeding
# Hx of lung cancer
follows with Dr Shin, Office was notified.
Receiving Chemo and G-CSF agents.
# Chronic kidney disease stage IIIb.� Creatinine 1.9 in August 2023, creatinine is 1.7 upon admission.
Creatinine 1.6.
Creatinine 11/21 is 1.6 ( stable)
Continue to monitor while on diuretics.
# History of BPH and obstruction.� Monitor for urinary retention.� Ordered a bladder scan
# History of coronary artery disease.� No chest pain.
#Paroxysmal atrial fibrillation.� Continue with rate control.
#Primary hypertension, lowered Losartan but Bp is low, will hold while using IV diuretic to avoid further hypotension.
#Diabetes.� Insulin sliding scale.
Poorly controlled. No compliant with diet. HGB A1C 8.1 but with ongoing chemo Tx, would rather not restrict his diet
# PVD and carotid artery disease.
Total time spent to see the patient, examine the patient on the floor, review data and lab results, discuss treatment plan with patient, nursing staff around 55 minutes
Anticipated Discharge: 24 - 48 hours
Subjective/Interval History
-
Date of Service: November 20, 2023
He denies chest perdomo or sob
no abd pain
No fever over night
Objective Data
-
Labs:
Laboratory Results
11/20/23
04:52
Sodium 135
Potassium 4.6
Chloride 103
Carbon Dioxide 27
BUN 37 H
Creatinine 1.6 H
Glucose 85
Calcium 8.6
Vital Signs:
Vital Signs
Temp Pulse Resp BP Pulse Ox
98.5 F 86 17 107/54 95
11/20/23 07:00 11/20/23 07:00 11/20/23 07:00 11/20/23 07:00 11/20/23 07:00
I&O
11/19/23 11/20/23 11/21/23
06:59 06:59 06:59
Intake Total 700 / 700 800 / 800
Output Total 550 / 550
Balance 150 / 150 800 / 800
--- NOTE | 2023-11-20 10:39 | W.PN.ID1 ---
Date of Service
Date of Service: November 20, 2023
Today's Communication
- trial of cefdinir (likely wont cross react based on different side chains compared with keflex)
- if rash then treat with certirizine/famotidine
Assessment / Plan
UTI - complicated
Fever - resolving
Leukocytosis - persistent
SCC on chemotherapy last dose 10/31
Keflex allergy (aminocephalosporin allergy) >10 years ago, rash
- cbc in the AM
- blood cultures x2 no growth to date
- urine culture 100K E coli
- trial of cefdinir (likely wont cross react based on different side chains compared with keflex) - discussed with patient
- if rash then treat with certirizine/famotidine
- follow clinically
Chief Complaint
-: UTI
Subjective / Review of Systems
no further fevers bp stable
cr stable, no cbc this am
Vital Signs / Physical Exam
Vital Signs
Vital Signs
Temp Pulse Resp BP Pulse Ox
98.5 F 86 17 107/54 95
11/20/23 07:00 11/20/23 07:00 11/20/23 07:00 11/20/23 07:00 11/20/23 07:00
Objective Data
Lab Data
Lab Results
11/19/23 04:55
11/20/23 04:52
Estimated Creat Clear 44 ml/min 11/20/23 04:52
Lactic Acid Cancelled 11/18/23 21:45
Total Bilirubin 0.5 mg/dl (0.2-1.3) 11/18/23 16:42
AST 25 U/L (17-59) 11/18/23 16:42
ALT 19 U/L (0-50) 11/18/23 16:42
Alkaline Phosphatase 112 U/L (38-126) 11/18/23 16:42
Most recent labs reviewed.
Urine Culture Final 11/20/23-906
CC: Greater than 100,000 CFU/ML Escherichia coli
Organism 1 Escherichia coli
1. Escherichia coli
M.I.C. RX
--------- ---
Amoxicillin/Potas. Clavulanate <=8/4 S
Ampicillin <=8 S
Ampicillin/Sulbactam <=8/4 S
Cefazolin <=2 S
Ertapenem <=0.5 S
Ciprofloxacin >2 R
Gentamicin <=4 S
Levofloxacin >4 R
Meropenem <=1 S
Nitrofurantoin-Urine Only <=32 S
Piperacillin/Tazobactam <=16 S
Tobramycin <=4 S
Trimethoprim/Sulfamethoxazole <=2/38 S
Micro Results:
11/18/23 16:54 Urine Culture - Final
Urine Escherichia coli
11/18/23 17:54 Blood Culture - Preliminary
Blood/Venous No Growth in 24 hours- Final report to follow
11/18/23 17:49 Blood Culture - Preliminary
Blood/Venous No Growth in 24 hours- Final report to follow
11/18/23 14:18 Influenza Types A & B (MARY) - Final
Nasal Swab Negative for Influenza A & B, NAAT
Negative results must be combined with clinical observations
and patient history.
Nucleic Acid Amplification test (NAAT)performed on the
[employer] platform.
[2023-11-20 11:30] LABS: Glucose - Point of Care 184 mg/dl (70-99)
--- NOTE | 2023-11-20 11:42 | W.PN.CARDCBS ---
Today's Communication / Plan
-
Continue Lasix 40 mg BID IV diuresis. He has had a 20 pound weight gain over the past several weeks and starting chemotherapy.
His creatinine is overall improved and remains 1.6. Continue to follow.
Wt is down 4 lbs over last 24 hrs. Check daily wts and Is and Oss
Noted over 20 beat run NSVT. Beta-howard use has been limited due to bradycardia. Resume low-dose Lopressor 12.5 mg twice daily and monitor heart rate and blood pressure.
Could reduce losartan dosing if needed for room for blood pressure.
Repeat echocardiogram pending
Continue supportive care including antibiotics for fever and likely UTI as per primary service. Urine culture positive for E. coli. Blood culture negative x 24 hours.
Continue medical therapy for complex coronary artery disease. Continue aspirin, Plavix, Crestor, and losartan.
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 He has treatment scheduled for November 21. Primary service to address with oncology.
Impression / Plan
-
.
PCP: VJ Bro
CDY: Jia Blackburn MD
Impression:
Acute on chronic heart failure with preserved ejection fraction
NSVT
Fever/UTI
CAD - 04/2015 urgent CABGx1 KINCAID-LAD (Cardiac arrest)
-06/2015 PCI LM and LCx
-10/22/22 Post cath with patent KINCAID-LAD and stents, non new occlusive disease
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
COPD/Emphysema
PVD - fem bypass and [employer] LCF 2016
CEA b/l 2018
AAA 3.2cm
PAF
CDK3a
HTN
HLD
KIM
RBBB
DM2
Former smoker
Cardiac catheterization 10/22/2022:�CONCLUSIONS
1.� Stable coronary artery disease with prior left main to left circumflex stent patent.
2.� Known chronic total occlusion of the RCA which appears stable.
3.� Patent KINCAID to LAD graft.
4.� Elevated LVEDP
Echo 10/22/2022�EF 65 to 70%.� Mild MR.� Aortic valve gradients 20/8 mmHg peak/mean consistent with mild aortic valve stenosis.� Trace TR with PA pressure 30 to 35 mmHg
Plan:
He has a complex medical history including VT/VF Cardiac arrest with LM stenosis urgent CABGx1 KICNAID-LAD 04/2015, PCI LM and LCx 06/2015, PAfib, PVD with multiple peripheral interventions including fem bypass, b/l CEA 2018, AAA, HTN, HLD, DM2, CKD3,
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
Continue Lasix 40 mg BID IV diuresis. He has had a 20 pound weight gain over the past several weeks and starting chemotherapy.
His creatinine is overall improved and remains 1.6. Continue to follow.
Wt is down 4 lbs over last 24 hrs. Check daily wts and Is and Oss
Noted over 20 beat run NSVT. Beta-howard use has been limited due to bradycardia. Resume low-dose Lopressor 12.5 mg twice daily and monitor heart rate and blood pressure.
Could reduce losartan dosing if needed for room for blood pressure.
Remains in sinus.
Repeat echocardiogram pending
Continue supportive care including antibiotics for fever and likely UTI as per primary service. Urine culture positive for E. coli. Blood culture negative x 24 hours.
Continue medical therapy for complex coronary artery disease. Continue aspirin, Plavix, Crestor, and losartan.
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 He has treatment scheduled for November 21. Primary service to address with oncology.
Discussed with primary service and nursing.
Progress Note - Job Training Specialist
Subjective
Date of Service: November 20, 2023
Patient seen and examined. No chest pain. Breathing better.
Objective
Labs:
11/19/23 04:55
11/20/23 04:52
Labs
Hgb 9.5 g/dL (13.0-18.0) L 11/19/23 04:55
Hct 29.5 % (39.0-52.0) L 11/19/23 04:55
Plt Count 281 10^3/uL (130-400) 11/19/23 04:55
Sodium 135 mmol/L (135-145) 11/20/23 04:52
Potassium 4.6 mmol/L (3.5-5.1) 11/20/23 04:52
BUN 37 mg/dl (9-20) H 11/20/23 04:52
Creatinine 1.6 mg/dL (0.7-1.3) H 11/20/23 04:52
Glucose 85 mg/dl (70-99) 11/20/23 04:52
Vital Signs and I&O:
Vital Signs
Temp Pulse Resp BP Pulse Ox
97.9 F 93 19 116/55 92
11/20/23 11:00 11/20/23 11:00 11/20/23 11:00 11/20/23 11:00 11/20/23 11:00
Vital Signs
Temp Pulse Resp BP Pulse Ox
97.9 F 93 19 116/55 92
11/20/23 11:00 11/20/23 11:00 11/20/23 11:00 11/20/23 11:00 11/20/23 11:00
Intake & Output
11/18/23 11/19/23 11/20/23 11/21/23
06:59 06:59 06:59 06:59
Intake Total 700 / 700 800 / 800
Output Total 550 / 550
Balance 150 / 150 800 / 800
Physical Exam
Physical Exam
General: No acute distress, AAOX3
Neck: Negative JVD
Heart: Regular, Negative S3 positive S1/S2, Negative S4, No murmur
Lungs: CTA b/l, negative wheezes/rales/rhonchi
Abd: Positive BS, NT/ND, neg rebound/rigidity/guarding
Ext: Negative cyanosis/clubbing. +1-2 bilateral edema
Neuro: nonfocal
[2023-11-20] MEDS: NOVOLOG FLEXPEN-LOW RESISTANCE 1 UNITS SC (12:09)
--- NOTE | 2023-11-20 13:19 | W.PN.PUL3 ---
Today's Communication / Plan
-
Continue antibiotics per ID
Echocardiogram pending, seems to have responded to diuresis
No evidence of active pulmonary process
Follow-up with pulmonary as previously scheduled
We will sign off. Please call with questions
Assessment
-
Patient is a 83 year old M with complex cardiac history including VT/VF arrest, CAD s/p CABG 04/2015, PCI LM and LCx 06/2015, Afib, PVD with multiple peripheral interventions including fem bypass, b/l CEA 2018, AAA, COPD/Emphysema, squamous cell lung
cancer left upper lobe status post radiation/chemotherapy 10/31/2023, now presents with increased shortness of breath x 5 days, weight gain, lower extremity swelling, fevers. We are asked to comment on pulmonary status 11/19
Suspected acute heart failure
Preserved ejection fraction
Leukocytosis
Fevers, UTI
Left upper lobe squamous cell lung cancer
Status post XRT/radiation 10/31/2023
Conditions present prior to admission
AFib
CAD s/p CABG KINCAID-LAD 04/2015
PCI LM and LCX 06/2015
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
Former smoker
HTN
Hypercholesterolemia
NIDDM
BPH
RBBB
PVD s/p vein stripping, Fem bypass 2019
b/l CEA 2018
Chronic kidney disease
History of aortic aneurysm
�
Plan/recommendations
At this time, patient appears to be comfortable, subjectively improved following diuresis
Chest exam is clear
Appears to have UTI, fevers subjectively improving
Urine culture 100,000 gram-negative rods moving forward ID following
Remains on meropenem
Moving forward
Does not appear to be having any acute pulmonary process at this time
Seems to respond to diuresis
Patient also appears to have responded to treatment for heart failure. Cardiology following
Echocardiogram pending 11/21
Chest x-ray without any acute findings. No evidence of acute radiation interstitial or inflammatory changes
Follow blood sugars
Follow-up with Dr. Melgar as previously scheduled
We will sign off. Please call with questions
Diagnostic Data
PFTs 09/02/21: FEV1 2.62L 89%, FVC 4.08L 99%, ratio 64. TLC 6.65L 92%, DLCO 46% (mild obstruction, normal volumes, moderate diffusion impairment)
Reports and relevant images were personally reviewed.
Subjective Data
-
Date of Service:
Date of Service: November 20, 2023
Subjective:
Patient examined earlier this morning. Appears to be improved, denies chest pain, shortness of breath, nausea, abdominal pain, cough. On room air. Appears to be in good spirits
Objective Data
Data Reviewed
Vital Signs / I&O / Oxygen:
Vital Signs
Temp Pulse Resp BP Pulse Ox
97.9 F 93 19 116/55 92
11/20/23 11:00 11/20/23 11:00 11/20/23 11:00 11/20/23 11:00 11/20/23 11:00
Intake and Output
11/19/23 11/20/23 11/21/23
06:59 06:59 06:59
Intake Total 700 / 700 800 / 800
Output Total 550 / 550
Balance 150 / 150 800 / 800
SaO2 92
Nasal Cannula flow liters per 3
minute
Physical Exam
General: Comfortable
HEENT: Normocephalic and Anicteric
Cardiovascular: S1-S2, Regular Rhythm, Murmur (n) and Peripheral Edema (tr)
Respiratory: Wheeze (n), Crackles (n), Rhonchi (n) and Non-Labored Respirations
GI: Soft, Non Distended and Non Tender
Neurology: Awake, Alert and No Motor Deficits
Skin: Cyanosis (n), Jaundice (n), Rash (n) and Other (Mild chronic venous stasis changes)
Labs/Micro/Reports
Lab Data
11/19/23 04:55
11/20/23 04:52
Microbiology
11/18/23 16:54 Urine Urine Culture - Final
Escherichia coli
11/18/23 17:54 Blood/Venous Blood Culture - Preliminary
No Growth in 24 hours- Final report to follow
11/18/23 17:49 Blood/Venous Blood Culture - Preliminary
No Growth in 24 hours- Final report to follow
11/18/23 14:18 Nasal Swab Influenza Types A & B (MARY) - Final
Negative for Influenza A & B, NAAT
Negative results must be combined with clinical observations
and patient history.
Nucleic Acid Amplification test (NAAT)performed on the
[employer] platform.
[2023-11-20] MEDS: LOPRESSOR 12.5 MG PO (13:57)
[2023-11-20 16:55] LABS: Glucose - Point of Care 127 mg/dl (70-99)
[2023-11-20] MEDS: CRESTOR 40 MG PO (17:54)
[2023-11-20] MEDS: ASPIR LOW (ENTERIC COATED) 81 MG PO (17:54)
[2023-11-20] MEDS: METAMUCIL, KONSYL 1 PACKET PO (17:54)
[2023-11-20] MEDS: LOVENOX 40 MG SC (17:54)
[2023-11-20] MEDS: PLAVIX 75 MG PO (17:55)
--- NOTE | 2023-11-20 19:20 | PTCARENOTE ---
Pt moved to room air this morning from 3L. 92% on RA, denies S.O.B.
[2023-11-20] MEDS: ProAmatine 5 MG PO ×2 (21:05→22:21)
[2023-11-20] MEDS: OMNICEF 300 MG PO (21:05)
[2023-11-20 21:47] LABS: Glucose - Point of Care 135 mg/dl (70-99)
[2023-11-20] MEDS: LANTUS 0.349999999999999978 UNITS SC (22:06)
[2023-11-20] MEDS: BENADRYL 25 MG PO (22:06)
[2023-11-20] MEDS: TYLENOL 500 MG PO (22:06)
[2023-11-20] MEDS: FLOMAX PO (23:49)
[2023-11-20] MEDS: LOPRESSOR PO (23:50)
[2023-11-21] VITALS (11 sets, daily range): BP systolic 88–120; BP diastolic 44–74; PULSE 78; O2SAT 93; BMI 32.0
--- NOTE | 2023-11-21 00:33 | PTCARENOTE ---
Pt. BP at change of shift was 92/46, rechecked 30 minutes later BP 92/44. Pt. asymptomatic. VJ Cummings notified. Pt. then noted to be in a-fib on tele monitor, at start of shift pt was in NSR. VJ Cummings notified. New order
rec'd for 5 mg midodrine. Midodrine administered per orders. One hour later BP rechecked and was 94/42. Pt remained asymptomatic. VJ Cummings notified. New order rec'd for another 5 mg Midodrine. Midodrine administered per orders. One hour
later BP rechecked and was 91/50, pt asymptomatic. VJ Cummings notified. BP checked at around 00:20 and was 88/44, pt. asymptomatic. VJ Cummings notified. No new orders at time.
[2023-11-21 06:00] LABS: % Basophils 0.3 % (0-2); % Eosinophils 16.1 % (0-6); % Immature Granulocytes 1.4 % (0-0.5); % Lymphocytes 3.5 % (20.5-51.1); % Monocytes 6.8 % (1.7-9.3); % Neutrophils 71.9 % (42.2-75.2); Absolute Basophils 0.1 10^3/uL (0-0.2); Absolute Eosinophils 4.1 10^3/uL (0-0.7); Absolute Immature Granulocytes 0.4 10^3/uL (0-0.05); Absolute Lymphocytes 0.9 10^3/uL (1.2-3.4); Absolute Monocytes 1.7 10^3/uL (0.1-0.6); Absolute Neutrophils 18.2 10^3/uL (1.4-6.5); Hematocrit 29.7 % (39.0-52.0); Hemoglobin 9.6 g/dL (13.0-18.0); Mean Corp Hgb Conc. 32.3 g/dL (33.0-37.0); Mean Corpuscular Hgb 28.7 pg (27.0-31.0); Mean Corpuscular Volume 88.7 fL (80.0-94.0); Mean Platelet Volume 9.1 fL (7.4-10.4); Nucleated Red Blood Cells % 0 % (-); Platelet Count 327 10^3/uL (130-400); Red Blood Cell Count 3.35 10^6/uL (4.70-6.10); Red Cell Dist. Width 15.2 % (11.5-14.5); White Blood Cell Count 25.3 10^3/uL (4.8-10.8)
[2023-11-21 06:01] LABS: Blood Urea Nitrogen 46 mg/dl (9-20); Calcium 8.6 mg/dl (8.4-10.2); Carbon Dioxide 28 mmol/L (22-30); Chloride 97 mmol/L (98-107); Estimated Creatinine Clearance 37 ml/min; Glucose 127 mg/dl (70-99); Magnesium 2.2 mg/dl (1.6-2.3); Potassium 4.3 mmol/L (3.5-5.1); Sodium 133 mmol/L (135-145); eGFR 34.79
[2023-11-21 07:50] LABS: Glucose - Point of Care 165 mg/dl (70-99)
[2023-11-21] MEDS: FLOMAX 0.400000000000000022 MG PO ×2 (08:47→20:01)
[2023-11-21] MEDS: OMNICEF 300 MG PO ×2 (08:47→20:01)
[2023-11-21] MEDS: MUCINEX 600 MG PO ×2 (08:47→20:01)
[2023-11-21] MEDS: LOPRESSOR 12.5 MG PO ×2 (08:47→20:01)
[2023-11-21] MEDS: VITAMIN D3 (cholecalciferol) 100 MCG PO (08:47)
[2023-11-21] MEDS: NOVOLOG FLEXPEN-LOW RESISTANCE 1 UNITS SC ×3 (08:48→17:59)
[2023-11-21] MEDS: VISBIOME 1 CAP PO (08:48)
--- NOTE | 2023-11-21 10:16 | W.PN.CARDCBS ---
Addendum entered and electronically signed by Varghese Negron DO 11/21/23 15:22:
I saw and examined the patient.
The Psychotherapist's note was reviewed and I agree with the note.
Comment:
Plan:
Now with AFib with RVR
Start Amiodarone 200 mg TID
Start Eliquis anticoagulation for stroke prophylaxis
Cont Plavix but stop ASA with addition of Eliquis. Hem/onc to eval.
Hold Losartan with hypotension
Cont midodrine to support bp.
Hold lasix with increase in cr and hypotension
Cont beta howard as bp will allow given prior NSVT this admit
Echo pending.
Reviewed with nursing.
Original Note:
Today's Communication / Plan
-
Start Amiodarone 200 mg TID
Start Eliquis 2.5 mg BID
Hold Lasix
Hold Losartan
Stop Lovenox
Stop ASA but continue Plavix with addition of Eliquis
Continue Midodrine prn for hypotension
Impression / Plan
-
.
PCP: VJ Bro
CDY: Jia Blackburn MD
Impression:
Presented 11/18/2023 with edema, SOB
Acute on chronic heart failure with preserved ejection fraction, proBNP 1140
NSVT
Paroxysmal atrial fibrillation
Fever/UTI
CAD - 04/2015 urgent CABGx1 KINCAID-LAD (Cardiac arrest)
-06/2015 PCI LM and LCx
-10/22/22 Post cath with patent KINCAID-LAD and stents, non new occlusive disease
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
COPD/Emphysema
PVD - fem bypass and [employer] LCF 2016
CEA b/l 2018
AAA 3.2cm
PAF
CDK3a
HTN
HLD
KIM
RBBB
DM2
Former smoker
Cardiac catheterization 10/22/2022:�CONCLUSIONS
1.� Stable coronary artery disease with prior left main to left circumflex stent patent.
2.� Known chronic total occlusion of the RCA which appears stable.
3.� Patent KINCAID to LAD graft.
4.� Elevated LVEDP
Echo 10/22/2022�EF 65 to 70%.� Mild MR.� Aortic valve gradients 20/8 mmHg peak/mean consistent with mild aortic valve stenosis.� Trace TR with PA pressure 30 to 35 mmHg
Plan:
He has a complex medical history including VT/VF Cardiac arrest with LM stenosis urgent CABGx1 KINCAID-LAD 04/2015, PCI LM and LCx 06/2015, PAfib, PVD with multiple peripheral interventions including fem bypass, b/l CEA 2018, AAA, HTN, HLD, DM2, CKD3,
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
Acute heart failure with preserved EF
He has had a 20 pound weight gain over the past several weeks and starting chemotherapy.
Weight is down 7 lbs since admission. Weight pending today. Still appears volume overloaded and on oxygen
His creatinine bumped overnight from 1.6 to 1.9 and pt now hypotension. Would hold Lasix today. Continue to follow.
Check daily wts and Is and Os
Noted over 20 beat run NSVT on admission. In past Beta-howard use has been limited due to bradycardia.
However, heart rates now elevated and patient in atrial fibrillation w/ accelerated to rapid ventricular response after Lopressor held evening of 11/20/2023 secondary to hypotension which required midodrine.
Will start Amiodarone 200 mg TID for rate control as hypotension limiting uptitration of Lopressor
Will start OAC Eliquis 2.5 mg BID (age >80 and creat >1.5); Stop ASA but keep on Plavix given CAD and PAD
Due to hypotension Losartan remains on hold
Repeat echocardiogram pending
Continue supportive care including antibiotics for fever and likely UTI as per primary service. Urine culture positive for E. coli. Blood culture negative x 48 hours.
Continue medical therapy for complex coronary artery disease. Continue Plavix, Crestor, and losartan (on hold resume when BP allows). ASA now on hold with addition of Eliquis
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 He has treatment scheduled for November 21. Would consider eval by heme/onc, particularly given we are starting OAC.
Discussed with primary service and nursing.
Progress Note - Appliance Service Supervisor
Subjective
Date of Service: November 21, 2023
Patient seen and examined. Still appears volume overloaded and on oxygen. Complaining of intermittent dizziness and palpitations
Objective
Labs:
11/21/23 05:23
11/21/23 05:23
Labs
Hgb 9.6 g/dL (13.0-18.0) L 11/21/23 05:23
Hct 29.7 % (39.0-52.0) L 11/21/23 05:23
Plt Count 327 10^3/uL (130-400) 11/21/23 05:23
Sodium 133 mmol/L (135-145) L 11/21/23 05:23
Potassium 4.3 mmol/L (3.5-5.1) 11/21/23 05:23
BUN 46 mg/dl (9-20) H 11/21/23 05:23
Creatinine 1.9 mg/dL (0.7-1.3) H 11/21/23 05:23
Glucose 127 mg/dl (70-99) H 11/21/23 05:23
Vital Signs and I&O:
Vital Signs
Temp Pulse Resp BP Pulse Ox
98.2 F 123 17 96/58 99
11/21/23 07:00 11/21/23 07:00 11/21/23 07:00 11/21/23 07:00 11/21/23 07:00
Vital Signs
Temp Pulse Resp BP Pulse Ox
98.2 F 123 17 96/58 99
11/21/23 07:00 11/21/23 07:00 11/21/23 07:00 11/21/23 07:00 11/21/23 07:00
Intake & Output
11/19/23 11/20/23 11/21/23 11/22/23
06:59 06:59 06:59 06:59
Intake Total 700 / 700 800 / 800 930 / 930
Output Total 550 / 550
Balance 150 / 150 800 / 800 930 / 930
Physical Exam
Physical Exam
GEN: No distress, awake, Ox3, wearing oxygen, sitting on edge of bed
HEENT: supple, anicteric, mmm
LUNGS: Decreased BS w/ few scattered crackles; wearing 2 lpm NC
CV: Irreg Irreg, S1/S2, 1/6 sys murmur, no rubs or gallops
ABD: soft, BS+, NT/ND
EXT: +2 vasquez pitting edema
NEURO: Gross non-focal
SKIN: No rash, warm, dry, pink
[2023-11-21] MEDS: LASIX IV (10:53)
--- NOTE | 2023-11-21 11:29 | W.PN.HOSP.TC ---
Today's Communication/Plan
-
onc eval
started on amiodarone/eliquis
pt/ot
Assessment / Plan
Assessment / Plan
Physical Exam
General: Other (no acute distress, conversant), chronically ill looking but not toxic appearing
HEENT: Moist mucous membranes and
Respiratory: not much rales. No wheezes.
Cardiac: S1/S2 irregular irregular, Right upper chest port: not tender or redness in the area
GI: Soft, obese, non tender.
Musculoskeletal: B/L LE edema with erythema (mild venous insufficiency component)
Neuro: AO x 3, followed commands.
Psych: Calm; No agitation.
83 years old male presented with weakness, weight gain and fever for 1 day duration
Assessment and plan
# Sepsis POA ( fever, tachycardia, leukocytosis) due to E Coli complicated UTI
No recurrent fever. No more dysuria.
No gastrointestinal symptoms.� Liver function test was normal. Mild hypoxia, he was placed on mild O2, will wean off.
No coughing at home.� He reported weight gain and exertional shortness of breath but not unusual for him after his lung cancer dx.
Chest x-ray no evidence of pneumonia
Blood culture no growth
Urine with E Coli
s/p Meropenem and now on Cefdinir
High WBC c/w recent G-CSF he received in October.
COVID test is negative.� Negative lactic acid.
Appreciate ID help
# Acute on chronic heart failure with preserved ejection fraction
Continue with diuretic Lasix 40 mg twice a day. Reduced losartan but will hold due to low Bp.
Monitor weight, seems to come down, less edema in the legs
Order echo
Appreciate cardiology input
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
bump in cr likely 2/2 diuretics and hypotension due to afib
lasix has been held
bladder scan protocol.
#Paroxysmal atrial fibrillation with intermittent RVR
Started on amiodarone and now low dose lopressor.
Soft BP is limiting factor for aggressive rate control
Started on Eliquis
# Anemia
likely of chronic disease and chemotherapy related
monitor daily
monitor closely as started on Eliquis.
# Hx of lung cancer
follows with Dr Shin, Office was notified.
Receiving Chemo and G-CSF agents.
Onc eval.
# History of BPH and obstruction.� Monitor for urinary retention.� Ordered a bladder scan
# History of coronary artery disease.� No chest pain. ASA stopped. Plavix continued. started on lopressor.
#Primary hypertension, lowered Losartan but Bp is low, will hold while using IV diuretic to avoid further hypotension.
#Diabetes.� Insulin sliding scale.
Poorly controlled. No compliant with diet. HGB A1C 8.1 but with ongoing chemo Tx.
# PVD and carotid artery disease.
DVT ppx-on eliquis now
Anticipated Discharge: > 48 hours
Subjective/Interval History
-
Date of Service: November 21, 2023
states LE edema has improved
states breathing has improved
Denies chest pain or palpations
Objective Data
-
Labs:
Laboratory Results
11/21/23
05:23
WBC 25.3 H
Hgb 9.6 L
Hct 29.7 L
Plt Count 327
Sodium 133 L
Potassium 4.3
Chloride 97 L
Carbon Dioxide 28
BUN 46 H
Creatinine 1.9 H
Glucose 127 H
Calcium 8.6
Vital Signs:
Vital Signs
Temp Pulse Resp BP Pulse Ox
97.8 F 64 17 107/55 94
11/21/23 11:26 11/21/23 11:26 11/21/23 11:26 11/21/23 11:26 11/21/23 11:26
I&O
11/20/23 11/21/23 11/22/23
06:59 06:59 06:59
Intake Total 800 / 800 930 / 930
Balance 800 / 800 930 / 930
Data Reviewed
-
Total Time Spent with Patient (in minutes): 55
[2023-11-21] MEDS: ELIQUIS 2.5 MG PO ×2 (11:52→20:01)
[2023-11-21] MEDS: PACERONE 200 MG PO ×3 (11:53→22:13)
[2023-11-21 11:59] LABS: Glucose - Point of Care 175 mg/dl (70-99)
--- NOTE | 2023-11-21 13:19 | PN.CDI ---
CDI
- -
CDI:
Physician Documentation Request
Admit Date: 11/18/23 19:05
Dear Doctor Gabby,
Patient admitted with sepsis.
11/18 Nursing skin assessment, 'Stage 1 sacral pressure injury, POA.'
Physician documentation of the type and location of wounds is required for compliant documentation. Based on the above clinical findings and your assessment, please provide the following in your progress note:
Type (etiology) of ulcer/wound:
- Pressure (decubitus) ulcer
- Other
For a pressure ulcer, please also include the stage* of the ulcer:
- Stage 1 - Skin intact, non-blanchable redness
- Stage 2 - Partial thickness loss of dermis, includes intact or open blister
- Stage 3 - Full thickness tissue not including bone, tendon or muscle
- Stage 4 - Full thickness tissue loss, including exposed bone, tendon or muscle
- Unstageable - Full thickness loss in which the base of the ulcer is covered by slough (yellow, ferraro, dominguez, green or brown) and/or eschar (ferraro, brown or black) in the wound bed.
- Unable to determine
Use of terms such as suspected, likely, concern for, or probable (associated with a specific diagnosis that is being evaluated, monitored, or treated as if it exists) are acceptable and can be coded in the inpatient setting, when documented at the
time of discharge.
Thank you,
Mary Grace HUMPHRIES,RN,CCDS
CDI Specialist
Available via tiger text
Please use your independent medical judgment in providing your response.
*Source: National Pressure Ulcer Advisory Panel (NPUAP)
[2023-11-21] MEDS: CRESTOR 40 MG PO (15:48)
[2023-11-21] MEDS: PLAVIX 75 MG PO (15:48)
[2023-11-21 16:23] LABS: Glucose - Point of Care 192 mg/dl (70-99)
--- NOTE | 2023-11-21 16:26 | W.PN.ID1 ---
Date of Service
Date of Service: November 21, 2023
Today's Communication
cefdinir
Assessment / Plan
UTI - complicated
Fever - resolving
Leukocytosis - persistent
SCC on chemotherapy last dose 10/31
Keflex allergy (aminocephalosporin allergy) >10 years ago, rash
- cbc in the AM
- blood cultures x2 no growth to date
- urine culture 100K E coli
- tolerating cefdinir (likely wont cross react based on different side chains compared with keflex)
- if rash then treat with certirizine/famotidine
- when renal function improving can consider discharge with a 14 day total course
Chief Complaint
-: UTI
Subjective / Review of Systems
afebrile
bp stable
small improvement in leukocytosis
cr increased
blood cultures remain negative
I feel good - less dysuria
Vital Signs / Physical Exam
Vital Signs
Vital Signs
Temp Pulse Resp BP Pulse Ox
98.0 F 91 18 112/59 96
11/21/23 15:00 11/21/23 15:00 11/21/23 15:00 11/21/23 15:00 11/21/23 15:00
Physical Exam
Constitutional: No Acute Distress
Cardiovascular: Regular Rate and S1/S2; Negative Murmur or Rub
Pulmonary: Clear and Symmetric; Negative Wheezes or Rales
Gastrointestinal: Soft, Non Tender, Non Distended and Normal Bowel Sounds
Genito-Urinary: Negative Suprapubic Tenderness
Skin: Warm and Dry; Negative Rash or Jaundice
Objective Data
Lab Data
Lab Results
11/21/23 05:23
11/21/23 05:23
Estimated Creat Clear 37 ml/min 11/21/23 05:23
Lactic Acid Cancelled 11/18/23 21:45
Total Bilirubin 0.5 mg/dl (0.2-1.3) 11/18/23 16:42
AST 25 U/L (17-59) 11/18/23 16:42
ALT 19 U/L (0-50) 11/18/23 16:42
Alkaline Phosphatase 112 U/L (38-126) 11/18/23 16:42
Most recent labs reviewed.
Micro Results:
11/18/23 17:54 Blood Culture - Preliminary
Blood/Venous No Growth in 48 hours- Final report to follow
11/18/23 17:49 Blood Culture - Preliminary
Blood/Venous No Growth in 48 hours- Final report to follow
11/18/23 16:54 Urine Culture - Final
Urine Escherichia coli
11/18/23 14:18 Influenza Types A & B (MARY) - Final
Nasal Swab Negative for Influenza A & B, NAAT
Negative results must be combined with clinical observations
and patient history.
Nucleic Acid Amplification test (NAAT)performed on the
[employer] platform.
[2023-11-21] MEDS: METAMUCIL, KONSYL 1 PACKET PO (17:59)
--- NOTE | 2023-11-21 20:44 | CON.ONC ---
Impression
Impression
Non-small cell lung cancer with disease progression in lung and hilar node
Hypoxic respiratory failure
Acute on chronic heart failure
Atrial fibrillation, new
Plan
Plan
No objection to treatment with Eliquis for Afib.
Plan is noted to start aspirin with starting Eliquis.
WBC may be due in part to WBC growth factor but it was given 11/01, would not expect continued elevation.
Low threshold for chest CT for continued O2 requirement
Patient History
History of Present Illness
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 PET scan 07/28/23 showed increase in MICHEAL nodule and a new L AP window node. Bx confirmed progressive disease, PD-L1 negative, no
actionable mutations. He started carbo/taxol/Keytruda 10/31/2023. He presented with 5 days of increased shortness of breath, lower extremity swelling, weight gain, fever..�Upon arrival to [facility], he was found to be afebrile, pulse 77,
breathing at 18, blood pressure 123/57, 92%/RA.� White count 25.3, creatinine 1.2.� Patient was given vancomycin and Ertapenem IV therapy along with 1 dose of Lasix.� Since admission, patient feels improved with regards to breathing.� He is still on
O2 2L, not on any home O2. He has been treated with abx for UTI. Found to be in atrial fibrillation. We are consulted regarding whether he is okay for Eliquis. Denies bleeding.
Past-Medical/Surgical History
Past Medical History: Hypertension, hyperlipidemia, heart failure, history of cardiac arrest, coronary disease with [place], squamous cell lung cancer status post radiation, chemotherapy, chronic kidney disease, diabetes, peripheral arterial disease,
sleep apnea.
Past Surgical History: bilateral lower extremity bypass, carotid endarterectomy bilaterally, bypass surgery with stent in the past, cholecystectomy.
Social History
Tobacco: Former Smoker
Alcohol: Occasional
Drug: None
Personal:
Living: With Family
Employment: Retired
Family History
Denies family history of cancer or blood disorders
Patient Medication
Medication Instructions Recorded Confirmed Last Taken Type
aspirin 81 mg tablet,delayed 81 mg PO DAILY@1600 Blood clot 01/22/19 11/18/23 11/17/23 History
release (Adult Low Dose Aspirin) prevention/tx
furosemide 20 mg tablet 20 mg PO BID@0800,1600 Fluid 01/22/19 11/18/23 11/18/23 History
retention/Swelling
rosuvastatin 40 mg tablet (Crestor) 40 mg PO DAILY@1600 High 01/22/19 11/18/23 11/17/23 History
cholesterol
insulin glargine 100 unit/mL 35 units SC HS Diabetes 03/07/20 11/18/23 11/17/23 History
subcutaneous solution (Lantus
U-100 Insulin)
losartan 100 mg tablet 100 mg PO DAILY@1600 Blood pressure 07/15/22 11/18/23 11/17/23 History
psyllium 1 packet PO QPM Constipation ##0 07/15/22 11/18/23 11/17/23 History
tamsulosin 0.4 mg capsule 0.4 mg PO BID Urinary issue 07/15/22 11/18/23 11/18/23 History
clopidogrel 75 mg tablet (Plavix) 75 mg PO DAILY@1600 Blood clot 10/22/22 11/18/23 11/17/23 History
prevention/tx
Lactobac no.2-Bifidobac no.1-S. 1 cap PO DAILY Supplement 11/17/22 11/18/23 11/18/23 History
thermo 112.5 billion cell capsule
(Visbiome)
glipizide 5 mg tablet, extended 5 mg PO BID@0800,1700 Diabetes 11/17/22 11/18/23 11/18/23 History
release 24 hr
azelastine 137 mcg (0.1 %) nasal 1 spray intranasal BID Congestion 09/14/23 11/18/2324 History
spray aerosol
cholecalciferol (vitamin D3) 50 100 mcg PO DAILY Supplement 09/14/23 11/18/23 11/18/23 History
mcg (2,000 unit) tablet (Vitamin
D3)
guaifenesin 600 mg tablet, 600 mg PO BID Congestion 09/14/23 11/18/23 11/18/23 History
extended release 12 hr (Mucinex)
diphenhydramine 25 1 tab PO HS Sleep 10/28/23 11/18/23 11/17/23 History
mg-acetaminophen 500 mg tablet
(Tylenol PM Extra Strength)
acetaminophen 650 mg 650 mg PO Q8H PRN prostate 11/18/23 11/18/23 Unknown History
tablet,extended release (Tylenol 8
Hour)
Active Medications
Generic Name Dose Route Start Last Admin
Trade Name Freq PRN Reason Stop Dose Admin
Acetaminophen 650 mg 11/18/23 20:12
Acetaminophen 325 Mg Tablet PO 12/16/23 20:11
Q4HPRN PRN
mild pain/ fever>100.5F
Acetaminophen 500 mg 11/18/23 22:00 11/20/23 22:06
Acetaminophen 500 Mg Tablet PO 12/16/23 21:59 500 mg
HS KALANI Administration
Amiodarone HCl 200 mg 11/21/23 16:00 11/21/23 15:48
Amiodarone 200 Mg Tablet PO 12/19/23 15:59 200 mg
TID KALANI Administration
Apixaban 2.5 mg 11/21/23 11:15 11/21/23 20:01
Apixaban (Eliquis) 2.5 Mg Tablet PO 12/19/23 11:14 2.5 mg
BID KALANI Administration
Cefdinir 300 mg 11/20/23 20:00 11/21/23 20:01
Cefdinir 300 Mg Capsule PO 300 mg
Q12 KALANI Administration
Cholecalciferol 100 mcg 11/19/23 08:00 11/21/23 08:47
Cholecalciferol (Vitamin D3) 50 Mcg Tablet (2,000 Units) PO 12/17/23 07:59 100 mcg
DAILY KALANI Administration
Clopidogrel Bisulfate 75 mg 11/19/23 16:00 11/21/23 15:48
Clopidogrel 75 Mg Tablet PO 12/17/23 15:59 75 mg
DAILY@1600 KALANI Administration
Dextrose 12.5 grams 11/18/23 20:12
Dextrose 50% (0.5 Grams/Ml) 50 Ml Syringe IV 12/16/23 20:11
[id number] PRN
hypoglycemia
Protocol
Diphenhydramine HCl 25 mg 11/18/23 22:00 11/20/23 22:06
Diphenhydramine 25 Mg Capsule PO 12/16/23 21:59 25 mg
HS AKLANI Administration
Furosemide 40 mg 11/19/23 08:00 11/21/23 10:53
Furosemide 40 Mg (10 Mg/Ml) 4 Ml Vial IV 12/17/23 07:59 Not Given
BID AT 0800,1600 KALANI
Glucagon 1 mg 11/18/23 20:12
Glucagon 1 Mg Vial IM 12/16/23 20:11
PRN PRN
hypoglycemia
Protocol
Guaifenesin 600 mg 11/18/23 20:12 11/21/23 20:01
Guaifenesin 600 Mg Extended Release Tablet PO 12/16/23 20:11 600 mg
BID KALANI Administration
Heparin Sodium (Porcine) 500 unit 11/18/23 22:09 11/21/23 05:24
Heparin Flush Pf (100 Unit/Ml) 5 Ml Syringe IV 12/16/23 22:08 500 unit
PRN PRN Administration
PORT ACCESS
Insulin Glargine 35 units/ 0.35 mls @ 0 mls/hr 11/18/23 22:00 11/20/23 22:06
Device SC 12/16/23 21:59 0.35 mls
HS KALANI Administration
As Directed
Insulin Aspart 0 units 11/19/23 07:30 11/21/23 17:59
Insulin Aspart Low Resistance 300 Units/3 Ml Pen.Injctr SC 12/17/23 07:29 1 units
AC KALANI Administration
Protocol
Lactobacillus/Bifidobacterium 1 cap 11/19/23 08:00 11/21/23 08:48
Lactobac/Bifidobac (Visbiome) PO 12/17/23 07:59 1 cap
DAILY KALANI Administration
Metoprolol Tartrate 12.5 mg 11/20/23 20:00 11/21/23 20:01
Metoprolol 12.5 Mg Regular Release Dose (1/2 Of 25 Mg Tablet) PO 12/18/23 19:59 12.5 mg
BID KALANI Administration
Midodrine 5 mg 11/21/23 14:19
Midodrine 5 Mg Tablet PO 12/19/23 14:18
Q4HPRN PRN
SBP<95
Psyllium Hydrophilic Mucilloid 1 packet 11/19/23 18:00 11/21/23 17:59
Psyllium Packet PO 12/17/23 17:59 1 packet
QPM KALANI Administration
Rosuvastatin Calcium 40 mg 11/19/23 16:00 11/21/23 15:48
Rosuvastatin (Crestor) 40 Mg Tablet PO 12/17/23 15:59 40 mg
DAILY@1600 KALANI Administration
Sodium Chloride 0 flush 11/18/23 21:00
Sodium Chloride 0.9% (Flush) Syringe IV 12/16/23 20:59
PER PROTOCOL KALANI
Tamsulosin HCl 0.4 mg 11/18/23 20:12 11/21/23 20:01
Tamsulosin 0.4 Mg Capsule PO 12/16/23 20:11 0.4 mg
BID KALANI Administration
Review of Systems
-
History Source: Patient
All Other Systems: Reviewed and Negative
Physical Exam
-
General: Well Developed and Well Nourished
HEENT: Moist Mucous Membranes; Negative Jaundice
Cardiology: Normal Sinus Rhythm, S1 and S2
Pulmonary: Other (diminished)
GI: Soft and Normal Bowel Sounds
Extremities: No C/C/E
Neurology: Non Focal
Skin: Warm and Dry
Hematologic / Lymphatic: No Lymphadenopathy
Psych: Calm and Intact Judgement/Insight
Labs
Lab Results
WBC 25.3 10^3/uL (4.8-10.8) H 11/21/23 05:23
RBC 3.35 10^6/uL (4.70-6.10) L 11/21/23 05:23
Hgb 9.6 g/dL (13.0-18.0) L 11/21/23 05:23
Hct 29.7 % (39.0-52.0) L 11/21/23 05:23
MCV 88.7 fL (80.0-94.0) 11/21/23 05:23
MCH 28.7 pg (27.0-31.0) 11/21/23 05:23
MCHC 32.3 g/dL (33.0-37.0) L 11/21/23 05:23
RDW 15.2 % (11.5-14.5) H 11/21/23 05:23
Plt Count 327 10^3/uL (130-400) 11/21/23 05:23
MPV 9.1 fL (7.4-10.4) 11/21/23 05:23
Abs Immat Gran (auto) 0.4 10^3/uL (0-0.05) H 11/21/23 05:23
Absolute Neuts (auto) 18.2 10^3/uL (1.4-6.5) H 11/21/23 05:23
Absolute Lymphs (auto) 0.9 10^3/uL (1.2-3.4) L 11/21/23 05:23
Absolute Monos (auto) 1.7 10^3/uL (0.1-0.6) H 11/21/23 05:23
Absolute Eos (auto) 4.1 10^3/uL (0-0.7) H 11/21/23 05:23
Absolute Basos (auto) 0.1 10^3/uL (0-0.2) 11/21/23 05:23
Immature Gran % 1.4 % (0-0.5) H 11/21/23 05:23
Neutrophils % 71.9 % (42.2-75.2) 11/21/23 05:23
Lymphocytes % 3.5 % (20.5-51.1) L 11/21/23 05:23
Monocytes % 6.8 % (1.7-9.3) 11/21/23 05:23
Eosinophils % 16.1 % (0-6) H 11/21/23 05:23
Basophils % 0.3 % (0-2) 11/21/23 05:23
Creatinine 1.9 mg/dL (0.7-1.3) H 11/21/23 05:23
Vital Signs
Vital Signs
Temp Pulse Resp BP Pulse Ox
98.1 F 118 16 110/61 92
11/21/23 19:35 11/21/23 20:01 11/21/23 19:35 11/21/23 20:01 11/21/23 19:35
[2023-11-21 22:09] LABS: Glucose - Point of Care 233 mg/dl (70-99)
[2023-11-21] MEDS: TYLENOL 500 MG PO (22:10)
[2023-11-21] MEDS: BENADRYL 25 MG PO (22:11)
[2023-11-21] MEDS: LANTUS 0.349999999999999978 UNITS SC (22:12)
[2023-11-22] VITALS (8 sets, daily range): BP systolic 95–124; BP diastolic 45–63; PULSE 90; O2SAT 95; BMI 32.0
[2023-11-22 06:17] LABS: % Basophils 0.3 % (0-2); % Eosinophils 23.3 % (0-6); % Immature Granulocytes 1.2 % (0-0.5); % Lymphocytes 3.6 % (20.5-51.1); % Monocytes 6.8 % (1.7-9.3); % Neutrophils 64.8 % (42.2-75.2); Absolute Basophils 0.1 10^3/uL (0-0.2); Absolute Eosinophils 5.7 10^3/uL (0-0.7); Absolute Immature Granulocytes 0.3 10^3/uL (0-0.05); Absolute Lymphocytes 0.9 10^3/uL (1.2-3.4); Absolute Monocytes 1.7 10^3/uL (0.1-0.6); Absolute Neutrophils 15.8 10^3/uL (1.4-6.5); Hematocrit 28.2 % (39.0-52.0); Hemoglobin 9.2 g/dL (13.0-18.0); Mean Corp Hgb Conc. 32.6 g/dL (33.0-37.0); Mean Corpuscular Hgb 28.9 pg (27.0-31.0); Mean Corpuscular Volume 88.7 fL (80.0-94.0); Mean Platelet Volume 9.4 fL (7.4-10.4); Nucleated Red Blood Cells % 0 % (-); Platelet Count 334 10^3/uL (130-400); Red Blood Cell Count 3.18 10^6/uL (4.70-6.10); White Blood Cell Count 24.4 10^3/uL (4.8-10.8)
[2023-11-22 06:41] LABS: Blood Urea Nitrogen 46 mg/dl (9-20); Calcium 8.1 mg/dl (8.4-10.2); Carbon Dioxide 25 mmol/L (22-30); Chloride 101 mmol/L (98-107); Estimated Creatinine Clearance 41 ml/min; Glucose 147 mg/dl (70-99); Potassium 4.4 mmol/L (3.5-5.1); Sodium 130 mmol/L (135-145); eGFR 39.75
[2023-11-22 07:43] LABS: Glucose - Point of Care 164 mg/dl (70-99)
[2023-11-22] MEDS: VITAMIN D3 (cholecalciferol) 100 MCG PO (08:05)
[2023-11-22] MEDS: MUCINEX 600 MG PO ×2 (08:05→20:40)
[2023-11-22] MEDS: FLOMAX 0.400000000000000022 MG PO ×2 (08:05→20:42)
[2023-11-22] MEDS: LOPRESSOR 12.5 MG PO ×2 (08:05→20:41)
[2023-11-22] MEDS: ELIQUIS 2.5 MG PO ×2 (08:06→20:42)
[2023-11-22] MEDS: OMNICEF 300 MG PO ×2 (08:06→20:40)
[2023-11-22] MEDS: NOVOLOG FLEXPEN-LOW RESISTANCE 1 UNITS SC ×2 (08:06→12:56)
[2023-11-22] MEDS: PACERONE 200 MG PO ×3 (08:06→22:33)
[2023-11-22] MEDS: VISBIOME 1 CAP PO (08:06)
--- NOTE | 2023-11-22 11:29 | W.PN.HOSP.TC ---
Addendum entered and electronically signed by Magdi Pierre MD 11/22/23 14:52:
Stage I sacral pressure injury POA
Original Note:
Today's Communication/Plan
-
cards recs
monitor BP
Cont lopressor/eliquis
trend bmp/sodium
Assessment / Plan
Assessment / Plan
Physical Exam
General: Other (no acute distress, conversant), chronically ill looking but not toxic appearing
HEENT: Moist mucous membranes and
Respiratory: not much rales. No wheezes.
Cardiac: S1/S2 irregular irregular, Right upper chest port: not tender or redness in the area
GI: Soft, obese, non tender.
Musculoskeletal: B/L LE edema with erythema (mild venous insufficiency component)
Neuro: AO x 3, followed commands.
Psych: Calm; No agitation.
83 years old male presented with weakness, weight gain and fever for 1 day duration
Assessment and plan
# Sepsis POA ( fever, tachycardia, leukocytosis) due to E Coli complicated UTI
#Leukocytosis likely 2/2 above and G-CSF agents.
No recurrent fever. No more dysuria.
No gastrointestinal symptoms.� Liver function test was normal. Mild hypoxia, he was placed on mild O2, will wean off.
No coughing at home.� He reported weight gain and exertional shortness of breath but not unusual for him after his lung cancer dx.
Chest x-ray no evidence of pneumonia
Blood culture no growth
Urine with E Coli
s/p Meropenem and now on Cefdinir
High WBC c/w recent G-CSF he received in October.
COVID test is negative.� Negative lactic acid.
Appreciate ID help
# Acute on chronic heart failure with preserved ejection fraction
losartan stopped due to hypotension
Lasix held in setting of hypotension/elevated Cr.
Monitor weight, seems to come down, less edema in the legs
ECHO EF 45-50%. Mild .
Appreciate cardiology input
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
bump in cr likely 2/2 diuretics and hypotension due to afib
lasix has been held
bladder scan protocol.
Cr downtrending.
#Hyponatremia ?due to overdiuresis
check serum osm and urine lytes.
#Paroxysmal atrial fibrillation with intermittent RVR
Started on amiodarone and now low dose lopressor.
Soft BP is limiting factor for aggressive rate control
Started on Eliquis
# Anemia
likely of chronic disease and chemotherapy related
monitor daily
monitor closely as started on Eliquis.
# Hx of lung cancer
follows with Dr Shin, Office was notified.
Receiving Chemo and G-CSF agents.
Onc eval.
# History of BPH and obstruction.� Monitor for urinary retention.� Ordered a bladder scan
# History of coronary artery disease.� No chest pain. ASA stopped. Plavix continued. started on lopressor.
#Primary hypertension-now with hypotension. losartan stopped. BP improving
#Diabetes.� Insulin sliding scale.
Poorly controlled. No compliant with diet. HGB A1C 8.1 but with ongoing chemo Tx.
# PVD and carotid artery disease.
DVT ppx-on eliquis now
Anticipated Discharge: > 48 hours
Subjective/Interval History
-
Date of Service: November 22, 2023
states improvement in swelling
denies lightheadedness or dizziness
Objective Data
-
Labs:
Laboratory Results
11/22/23
05:45
WBC 24.4 H
Hgb 9.2 L
Hct 28.2 L
Plt Count 334
Sodium 130 L
Potassium 4.4
Chloride 101
Carbon Dioxide 25
BUN 46 H
Creatinine 1.7 H
Glucose 147 H
Calcium 8.1 L
Vital Signs:
Vital Signs
Temp Pulse Resp BP Pulse Ox
97.3 F 96 20 124/51 94
11/22/23 11:18 11/22/23 11:18 11/22/23 11:18 11/22/23 11:18 11/22/23 11:18
I&O
11/21/23 11/22/23 11/23/23
06:59 06:59 06:59
Intake Total 930 / 930 930 / 930
Output Total 300 / 300
Balance 930 / 930 630 / 630
Data Reviewed
-
Total Time Spent with Patient (in minutes): 55
--- NOTE | 2023-11-22 12:09 | W.PN.ONC ---
Addendum entered and electronically signed by Debi Shin MD 11/22/23 13:38:
Patient seen and examined, hospital events noted
continue Eliquis, amiodarone, diuresis per cardiology, wean O2 as able
Abx per ID for complicated UTI, will need 14d course
Persistent leukocytosis may be from GCSF (Rolvedon)
Will arrange office f/u after discharge to plan next cycle of chemo/IO
Will follow along
Original Note:
Today's Communication / Plan
-
11/22 Hgb 9.2, Hct 28.2
Transfuse as needed to maintain Hgb >7
CBC with diff daily
Continue Eliquis
Monitor for bleeding
Cardiology following and diuresing
Wean oxygen as able
Supportive care
Follow up is tentatively arranged with Dr. Shin on 11/28/23 in the [place] office.
Follow up to be adjusted accordingly based on discharge.
We will follow along.
Impression
Impression
Non-small cell lung cancer, disease progression in lung and hilar node s/p radiation (11/2022)
Chemotherapy: Carbo/Taxol, Pembrolizumab
Hypoxic respiratory failure
Shortness of breath
Acute on chronic heart failure
Atrial fibrillation, new
Lower extremity edema
Fevers (resolved)
Leukocytosis (s/p Rolvedon 11/07/23)
Subjective/Objective
Subjective/Objective
patient sitting on side of bed, eating breakfast. denies pain.
Vital Signs:
Vital Signs
Temp Pulse Resp BP Pulse Ox
97.3 F 96 20 124/51 94
11/22/23 11:18 11/22/23 11:18 11/22/23 11:18 11/22/23 11:18 11/22/23 11:18
physical exam:
aaox3, calm/pleasant, chronically-ill appearing
HR irregular, lungs diminished throughout on 4L oxygen via nasal cannula
+2 pitting edema bilateral lower extremities, discoloration/erythema
Lab Results:
Laboratory Data
WBC 24.4 10^3/uL (4.8-10.8) H 11/22/23 05:45
Hgb 9.2 g/dL (13.0-18.0) L 11/22/23 05:45
Plt Count 334 10^3/uL (130-400) 11/22/23 05:45
eGFR 39.75 11/22/23 05:45
11/18/23 CXR: No evidence to suggest pneumonia.Pleural-based opacity in the medial left upper lobe corresponds to a known mass as demonstrated on prior CT examination of 09/15/2023.No evidence to suggest congestive heart failure.No pneumothorax or
pleural effusion.
[2023-11-22 12:10] LABS: Glucose - Point of Care 176 mg/dl (70-99)
[2023-11-22 13:32] LABS: Osmolality Serum 289 mOsm/kg (275-300)
--- NOTE | 2023-11-22 14:25 | W.PN.CARDCBS ---
Addendum entered and electronically signed by Renato Blackburn MD 11/22/23 14:58:
I saw and examined the patient.
The [facility] Radar Operator/Navigator's note was reviewed and I agree with the note.
Comment: Briefly, 83-year-old male past medical history of ischemic cardiomyopathy, heart failure preserved ejection fraction and paroxysmal atrial fibrillation presenting with decompensated heart failure
Initially was over 20 pounds above his dry weight
IV diuresis was initiated and then held due to KATHARINE, would resume IV diuretics and monitor renal function going forward
In addition, he developed atrial fibrillation/flutter during hospitalization
Started on Eliquis for cardioembolic prophylaxis
Continue metoprolol for rate control
Amiodarone load ongoing
Consider direct-current cardioversion pending clinical course
Original Note:
Today's Communication / Plan
-
Restart Lasix for this evening
Impression / Plan
-
PCP: VJ Bro
CDY: Jia Blackburn MD
Impression:
Presented 11/18/2023 with edema, SOB
Acute on chronic HFpEF
NSVT
Paroxysmal atrial fibrillation
Fever/UTI
CAD
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
PCI LM and LCx 06/2015
s/p cath with patent KINCAID-LAD and stents, non new occlusive disease 10/22/22
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
COPD/Emphysema
PVD - fem bypass and [employer] LCF 2016
CEA B/L 2018
AAA 3.2cm
PAF
CDK3a
HTN
HLD
KIM
RBBB
DM2
Former smoker
Echo 10/22/2022�EF 65 to 70%.� Mild MR.� Aortic valve gradients 20/8 mmHg peak/mean consistent with mild aortic valve stenosis.� Trace TR with PA pressure 30 to 35 mmHg
Plan:
-Cre peaked at 1.9 on 11/21/23 and is down to 1.7 on 11/22/23. Will restart Lasix 40 mg IV BID on 11/22/23 PM. Patient was taking Lasix 20 mg PO BID as an outpatient.
-Dry weight 09/15/23 was 238 lbs. Patient weighed 233 lbs on admission 11/18/23 and weight is down to 229 lbs on 11/22/23. Will continue to diurese.
-EF preserved at 65-70% by echo 10/22/22
-Outpatient dose of losartan 100 mg daily was decreased to 25 mg daily and then stopped this admission due to KATHARINE and hypotension.
-Patient was started on Lopressor 12.5 mg BID this admission. Patient was not previously able to take a BB due to bradycardia
-Patient started on amiodarone 200 mg TID 11/21/23 for recurrence of Afib this admission
-New to Eliquis 2.5 mg BID (age 83, Cre 1.7, wt 103 kg). Stop outpatient dose of aspirin but keep on Plavix given CAD and PAD
-He currently is undergoing treatment for squamous cell lung cancer of the left lobe. He was scheduled for treatment 11/21/23
HPI: He has a complex medical history including VT/VF Cardiac arrest with LM stenosis urgent CABGx1 KINCAID-LAD 04/2015, PCI LM and LCx 06/2015, PAfib, PVD with multiple peripheral interventions including fem bypass, b/l CEA 2018, AAA, HTN, HLD, DM2,
CKD3, RBBB, KIM, COPD/Emphysema and MICHEAL lung CA on chemo/XRT.
Progress Note - Rn Hospital
Subjective
Date of Service: November 22, 2023
He feels well
Objective
Labs:
11/22/23 05:45
11/22/23 05:45
Labs
Hgb 9.2 g/dL (13.0-18.0) L 11/22/23 05:45
Hct 28.2 % (39.0-52.0) L 11/22/23 05:45
Plt Count 334 10^3/uL (130-400) 11/22/23 05:45
Sodium 130 mmol/L (135-145) L 11/22/23 05:45
Potassium 4.4 mmol/L (3.5-5.1) 11/22/23 05:45
BUN 46 mg/dl (9-20) H 11/22/23 05:45
Creatinine 1.7 mg/dL (0.7-1.3) H 11/22/23 05:45
Glucose 147 mg/dl (70-99) H 11/22/23 05:45
Vital Signs and I&O:
Vital Signs
Temp Pulse Resp BP Pulse Ox
97.3 F 96 20 124/51 94
11/22/23 11:18 11/22/23 11:18 11/22/23 11:18 11/22/23 11:18 11/22/23 11:18
Vital Signs
Temp Pulse Resp BP Pulse Ox
97.3 F 96 20 124/51 94
11/22/23 11:18 11/22/23 11:18 11/22/23 11:18 11/22/23 11:18 11/22/23 11:18
Intake & Output
11/20/23 11/21/23 11/22/23 11/23/23
06:59 06:59 06:59 06:59
Intake Total 800 / 800 930 / 930 930 / 930
Output Total 300 / 300
Balance 800 / 800 930 / 930 630 / 630
Physical Exam
Physical Exam
GEN: NAD. AAO x3
HEENT: EOMI
LUNGS: Oxygen at 3 L NC. Decreased BS w/ few scattered crackles
CV: Irreg Irreg, S1/S2, 1/6 sys murmur, no rubs or gallops
ABD: soft, BS+
EXT: +2 B/L LE edema
NEURO: Gross non-focal
SKIN: No rash
--- NOTE | 2023-11-22 15:27 | W.PN.ID1 ---
Date of Service
Date of Service: November 22, 2023
Today's Communication
continue cefdinir through 11/30
Assessment / Plan
UTI - complicated
Fever - resolving
Leukocytosis - persistent
SCC on chemotherapy last dose 10/31
Keflex allergy (aminocephalosporin allergy) >10 years ago, rash
- cbc in the AM
- blood cultures x2 no growth to date
- urine culture 100K E coli
- tolerating cefdinir (likely wont cross react based on different side chains compared with keflex) - continue through 11/30
- if rash then treat with certirizine/famotidine
- stable for dc from ID perpsecitve
Chief Complaint
-: Leukocytosis and UTI
Subjective / Review of Systems
afebrile
bp stable
still with leukocytosis - possibly due to gcsf
cr stable
blood cultures no growth to date
some dysuria
Vital Signs / Physical Exam
Vital Signs
Vital Signs
Temp Pulse Resp BP Pulse Ox
97.6 F 92 19 100/57 94
11/22/23 15:00 11/22/23 15:00 11/22/23 15:00 11/22/23 15:00 11/22/23 15:00
Physical Exam
Constitutional: No Acute Distress
Cardiovascular: Regular Rate and S1/S2; Negative Murmur or Rub
Pulmonary: Clear and Symmetric; Negative Wheezes or Rales
Gastrointestinal: Soft, Non Tender, Non Distended and Normal Bowel Sounds
Genito-Urinary: Negative Suprapubic Tenderness
Skin: Warm and Dry; Negative Rash or Jaundice
Objective Data
Lab Data
Lab Results
11/22/23 05:45
11/22/23 05:45
Estimated Creat Clear 41 ml/min 11/22/23 05:45
Lactic Acid Cancelled 11/18/23 21:45
Total Bilirubin 0.5 mg/dl (0.2-1.3) 11/18/23 16:42
AST 25 U/L (17-59) 11/18/23 16:42
ALT 19 U/L (0-50) 11/18/23 16:42
Alkaline Phosphatase 112 U/L (38-126) 11/18/23 16:42
Most recent labs reviewed.
Micro Results:
11/18/23 17:54 Blood Culture - Preliminary
Blood/Venous No Growth in 72 hours- Final report to follow
11/18/23 17:49 Blood Culture - Preliminary
Blood/Venous No Growth in 72 hours- Final report to follow
11/18/23 16:54 Urine Culture - Final
Urine Escherichia coli
11/18/23 14:18 Influenza Types A & B (MARY) - Final
Nasal Swab Negative for Influenza A & B, NAAT
Negative results must be combined with clinical observations
and patient history.
Nucleic Acid Amplification test (NAAT)performed on the
[employer] platform.
[2023-11-22] MEDS: LASIX 40 MG IV (15:34)
[2023-11-22] MEDS: PLAVIX 75 MG PO (15:35)
[2023-11-22] MEDS: CRESTOR 40 MG PO (15:35)
--- NOTE | 2023-11-22 16:13 | CM ---
Pt remains on new Oxygen 3 liter Pox 94%.
Will need home oxygen test closer to dc.
Offered VN he declined need.
PLAN Home no needs
[2023-11-22 16:57] LABS: Glucose - Point of Care 207 mg/dl (70-99)
[2023-11-22 17:07] LABS: Osmolality Urine 385 mOsm/kg (300-900)
[2023-11-22] MEDS: METAMUCIL, KONSYL 1 PACKET PO (17:09)
[2023-11-22 17:14] LABS: Urine Sodium 56 mmol/L (30-90)
[2023-11-22] MEDS: NOVOLOG FLEXPEN-LOW RESISTANCE 2 UNITS SC (17:58)
[2023-11-22 21:36] LABS: Glucose - Point of Care 202 mg/dl (70-99)
[2023-11-22] MEDS: LANTUS 0.349999999999999978 UNITS SC (22:32)
[2023-11-22] MEDS: TYLENOL 500 MG PO (22:33)
[2023-11-22] MEDS: BENADRYL 25 MG PO (22:33)
[2023-11-23 03:45] VITALS: BP 110/57
[2023-11-23 04:16] LABS: % Basophils 0.4 % (0-2); % Eosinophils 31.5 % (0-6); % Immature Granulocytes 1.1 % (0-0.5); % Lymphocytes 3.9 % (20.5-51.1); % Monocytes 6.2 % (1.7-9.3); % Neutrophils 56.9 % (42.2-75.2); Absolute Basophils 0.1 10^3/uL (0-0.2); Absolute Eosinophils 8.7 10^3/uL (0-0.7); Absolute Immature Granulocytes 0.3 10^3/uL (0-0.05); Absolute Lymphocytes 1.1 10^3/uL (1.2-3.4); Absolute Monocytes 1.7 10^3/uL (0.1-0.6); Absolute Neutrophils 15.7 10^3/uL (1.4-6.5); Hematocrit 29.4 % (39.0-52.0); Hemoglobin 9.7 g/dL (13.0-18.0); Mean Platelet Volume 9.2 fL (7.4-10.4); Nucleated Red Blood Cells % 0 % (-); Platelet Count 320 10^3/uL (130-400); Red Blood Cell Count 3.34 10^6/uL (4.70-6.10); White Blood Cell Count 27.6 10^3/uL (4.8-10.8)
[2023-11-23 04:37] LABS: Blood Urea Nitrogen 54 mg/dl (9-20); Calcium 8.5 mg/dl (8.4-10.2); Carbon Dioxide 28 mmol/L (22-30); Chloride 99 mmol/L (98-107); Estimated Creatinine Clearance 39 ml/min; Glucose 128 mg/dl (70-99); Potassium 4.3 mmol/L (3.5-5.1); Sodium 134 mmol/L (135-145); eGFR 37.12
[2023-11-23 06:00] VITALS: BMI 31.7
[2023-11-23 07:00] VITALS: BP 139/59
[2023-11-23 08:27] LABS: Glucose - Point of Care 167 mg/dl (70-99)
[2023-11-23] MEDS: VISBIOME 1 CAP PO (08:32)
[2023-11-23] MEDS: FLOMAX 0.400000000000000022 MG PO ×2 (08:32→21:29)
[2023-11-23] MEDS: MUCINEX 600 MG PO ×2 (08:32→21:28)
[2023-11-23] MEDS: ELIQUIS 2.5 MG PO ×2 (08:32→21:29)
[2023-11-23] MEDS: VITAMIN D3 (cholecalciferol) 100 MCG PO (08:32)
[2023-11-23] MEDS: LOPRESSOR 12.5 MG PO (08:32)
[2023-11-23] MEDS: LASIX 40 MG IV ×2 (08:33→17:16)
[2023-11-23] MEDS: PACERONE 200 MG PO ×3 (08:33→21:30)
[2023-11-23] MEDS: OMNICEF 300 MG PO ×2 (08:33→21:28)
[2023-11-23] MEDS: NOVOLOG FLEXPEN-LOW RESISTANCE 1 UNITS SC (08:34)
--- NOTE | 2023-11-23 09:45 | W.PN.CARDCBS ---
Today's Communication / Plan
-
Continue IV Lasix for another 24 hours. Creatinine stable at 1.8.
Remains in A-fib with modestly elevated rates. Continue amiodarone load.
Increase metoprolol to 25 p.o. twice daily
Continue Eliquis
If no clinical improvement or remains in A-fib could consider cardioversion at end of week.
Impression / Plan
-
PCP: VJ Bro
CDY: Jia Blackburn MD
Impression:
Presented 11/18/2023 with edema, SOB
Acute on chronic HFpEF
NSVT
Paroxysmal atrial fibrillation
Fever/UTI
CAD
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
PCI LM and LCx 06/2015
s/p cath with patent KINCAID-LAD and stents, non new occlusive disease 10/22/22
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
COPD/Emphysema
PVD - fem bypass and [employer] LCF 2016
CEA B/L 2018
AAA 3.2cm
PAF
CDK3a
HTN
HLD
KIM
RBBB
DM2
Former smoker
Echo 10/22/2022�EF 65 to 70%.� Mild MR.� Aortic valve gradients 20/8 mmHg peak/mean consistent with mild aortic valve stenosis.� Trace TR with PA pressure 30 to 35 mmHg
Plan:
-Creatinine is improved and down to 1.8. Will continue IV Lasix for another 24 hours. Will repeat proBNP is unclear how much of his edema is from CHF versus chronic stasis versus peripheral vascular disease.
-EF preserved at 65-70% by echo 10/22/22
-Outpatient dose of losartan 100 mg daily was decreased to 25 mg daily and then stopped this admission due to KATHARINE and hypotension.
-Ventricular rates are elevated. Increase metoprolol to 25 p.o. twice daily. Patient was not previously able to take a BB due to bradycardia
-Patient started on amiodarone 200 mg TID 11/21/23 for recurrence of Afib this admission
-New to Eliquis 2.5 mg BID (age 83, Cre 1.7, wt 103 kg). Stop outpatient dose of aspirin but keep on Plavix given CAD and PAD
-He currently is undergoing treatment for squamous cell lung cancer of the left lobe. He was scheduled for treatment 11/21/23
-Will follow clinical course and if not improved could consider cardioversion at end of week after amiodarone load.
HPI: He has a complex medical history including VT/VF Cardiac arrest with LM stenosis urgent CABGx1 KINCAID-LAD 04/2015, PCI LM and LCx 06/2015, PAfib, PVD with multiple peripheral interventions including fem bypass, b/l CEA 2018, AAA, HTN, HLD, DM2,
CKD3, RBBB, KIM, COPD/Emphysema and MICHEAL lung CA on chemo/XRT.
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
Subjective
Date of Service: November 23, 2023
Still with edema in his legs. Denies any chest pain. Has occasional palpitations.
Objective
Labs:
11/23/23 04:07
11/23/23 04:07
Labs
Hgb 9.7 g/dL (13.0-18.0) L 11/23/23 04:07
Hct 29.4 % (39.0-52.0) L 11/23/23 04:07
Plt Count 320 10^3/uL (130-400) 11/23/23 04:07
Sodium 134 mmol/L (135-145) L 11/23/23 04:07
Potassium 4.3 mmol/L (3.5-5.1) 11/23/23 04:07
BUN 54 mg/dl (9-20) H 11/23/23 04:07
Creatinine 1.8 mg/dL (0.7-1.3) H 11/23/23 04:07
Glucose 128 mg/dl (70-99) H 11/23/23 04:07
Vital Signs and I&O:
Vital Signs
Temp Pulse Resp BP Pulse Ox
98.2 F 56 20 139/59 93
11/23/23 07:00 11/23/23 08:32 11/23/23 07:00 11/23/23 08:32 11/23/23 07:00
Vital Signs
Temp Pulse Resp BP Pulse Ox
98.2 F 56 20 139/59 93
11/23/23 07:00 11/23/23 08:32 11/23/23 07:00 11/23/23 08:32 11/23/23 07:00
Intake & Output
11/21/23 11/22/23 11/23/23 11/24/23
06:59 06:59 06:59 06:59
Intake Total 930 / 930 930 / 930 1020 / 1020
Output Total 300 / 300
Balance 930 / 930 630 / 630 1020 / 1020
Physical Exam
Physical Exam
GEN: No distress, awake, Ox3
HEENT: supple, anicteric, mmm
LUNGS: scatt rhonchi
CV: Irreg, S1/S2, 1/6 syst LSB, no gallop
ABD: soft, BS+, NT/ND
EXT: +2 edema
NEURO: Gross non-focal
SKIN: No rash
[2023-11-23 11:00] VITALS: BP 98/51
--- NOTE | 2023-11-23 11:02 | W.PN.HOSP.TC ---
Today's Communication/Plan
-
Check LE venous doppler
IV lasix
trend cr
ID recs
Assessment / Plan
Assessment / Plan
Physical Exam
General: Other (no acute distress, conversant), chronically ill looking but not toxic appearing
HEENT: Moist mucous membranes and
Respiratory: not much rales. No wheezes.
Cardiac: S1/S2 irregular irregular, Right upper chest port: not tender or redness in the area
GI: Soft, obese, non tender.
Musculoskeletal: B/L LE edema with erythema (mild venous insufficiency component)
Neuro: AO x 3, followed commands.
Psych: Calm; No agitation.
83 years old male presented with weakness, weight gain and fever for 1 day duration
Assessment and plan
# Sepsis POA ( fever, tachycardia, leukocytosis) due to E Coli complicated UTI
#Leukocytosis likely 2/2 above and G-CSF agents and ?due to malignancy.
No recurrent fever. No more dysuria. Dry cough. No diarrhea.
No gastrointestinal symptoms.
He reported weight gain and exertional shortness of breath but not unusual for him after his lung cancer dx.
Chest x-ray no evidence of pneumonia
Blood culture no growth
Urine with E Coli
s/p Meropenem and now on Cefdinir
High WBC c/w recent G-CSF he received in October.
COVID test is negative.� Negative lactic acid.
Check LE doppler
WBC of 27k but remains afebrile.
Appreciate ID help
# Acute on chronic heart failure with preserved ejection fraction
losartan stopped due to hypotension
Lasix 40 IV bid restarted
Monitor weight, seems to come down, less edema in the legs
ECHO EF 45-50%. Mild .
Appreciate cardiology input
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
bump in cr likely 2/2 diuretics and hypotension due to afib
bladder scan protocol.
Trend cr. remains hypervolemia.
#Hyponatremia ?due to overdiuresis
improving.
#Paroxysmal atrial fibrillation with intermittent RVR
Started on amiodarone and now low dose lopressor.
Soft BP is limiting factor for aggressive rate control
Started on Eliquis
# Anemia
likely of chronic disease and chemotherapy related
monitor daily
monitor closely as started on Eliquis.
# Hx of lung cancer
follows with Dr Shin, Office was notified.
Receiving Chemo and G-CSF agents.
Onc eval.
# History of BPH and obstruction.� Monitor for urinary retention.� Ordered a bladder scan
# History of coronary artery disease.� No chest pain. ASA stopped. Plavix continued. started on lopressor.
#Primary hypertension-now with hypotension. losartan stopped. BP improving
#Diabetes.� Insulin sliding scale.
Poorly controlled. No compliant with diet. HGB A1C 8.1 but with ongoing chemo Tx.
# PVD and carotid artery disease.
DVT ppx-on eliquis now
Anticipated Discharge: > 48 hours
Subjective/Interval History
-
Date of Service: November 23, 2023
States of improvement in lower extremity edema
States of dry cough
Denies diarrhea
Denies dysuria
remains afebrile
Objective Data
-
Labs:
Laboratory Results
11/23/23
04:07
WBC 27.6 H
Hgb 9.7 L
Hct 29.4 L
Plt Count 320
Sodium 134 L
Potassium 4.3
Chloride 99
Carbon Dioxide 28
BUN 54 H
Creatinine 1.8 H
Glucose 128 H
Calcium 8.5
Vital Signs:
Vital Signs
Temp Pulse Resp BP Pulse Ox
98.2 F 56 20 139/59 94
11/23/23 07:00 11/23/23 08:32 11/23/23 07:00 11/23/23 08:32 11/23/23 08:45
I&O
11/22/23 11/23/23 11/24/23
06:59 06:59 06:59
Intake Total 930 / 930 1020 / 1020
Output Total 300 / 300
Balance 630 / 630 1020 / 1020
[2023-11-23 12:11] LABS: Glucose - Point of Care 260 mg/dl (70-99)
[2023-11-23] MEDS: NOVOLOG FLEXPEN-LOW RESISTANCE 3 UNITS SC (13:09)
[2023-11-23 13:21] VITALS: BP 107/50; PULSE 54; PULSE 90; O2SAT 93
--- NOTE | 2023-11-23 13:53 | W.PN.ID1 ---
Date of Service
Date of Service: November 23, 2023
Today's Communication
- tolerating cefdinir (likely wont cross react based on different side chains compared with keflex) - continue through 11/30
- if rash then treat with certirizine/famotidine
[facility]
Assessment / Plan
UTI - complicated
Fever - resolving
Leukocytosis - persistent
SCC on chemotherapy last dose 10/31
Keflex allergy (aminocephalosporin allergy) >10 years ago, rash
- blood cultures x2 no growth to date
- urine culture 100K E coli
- tolerating cefdinir (likely wont cross react based on different side chains compared with keflex) - continue through 11/30
- if rash then treat with certirizine/famotidine
- [facility]
Chief Complaint
-: Leukocytosis and UTI
Subjective / Review of Systems
afebrile
mild intermittent hypotension
leukocytosis persists
cr 1.8 today
blood cultures no growth to date
Vital Signs / Physical Exam
Vital Signs
Vital Signs
Temp Pulse Resp BP Pulse Ox
97.7 F 78 20 98/51 95
11/23/23 11:00 11/23/23 11:00 11/23/23 11:00 11/23/23 11:11/23/23 11:00
Physical Exam
Constitutional: No Acute Distress
Cardiovascular: Regular Rate and S1/S2; Negative Murmur or Rub
Pulmonary: Clear and Symmetric; Negative Wheezes or Rales
Gastrointestinal: Soft, Non Tender, Non Distended and Normal Bowel Sounds
Skin: Warm and Dry; Negative Rash or Jaundice
Objective Data
Lab Data
Lab Results
11/23/23 04:07
11/23/23 04:07
Estimated Creat Clear 39 ml/min 11/23/23 04:07
Lactic Acid Cancelled 11/18/23 21:45
Total Bilirubin 0.5 mg/dl (0.2-1.3) 11/18/23 16:42
AST 25 U/L (17-59) 11/18/23 16:42
ALT 19 U/L (0-50) 11/18/23 16:42
Alkaline Phosphatase 112 U/L (38-126) 11/18/23 16:42
Most recent labs reviewed.
Micro Results:
11/18/23 17:54 Blood Culture - Preliminary
Blood/Venous No Growth in 4 days- Final report to follow
11/18/23 17:49 Blood Culture - Preliminary
Blood/Venous No Growth in 4 days- Final report to follow
11/18/23 16:54 Urine Culture - Final
Urine Escherichia coli
11/18/23 14:18 Influenza Types A & B (MARY) - Final
Nasal Swab Negative for Influenza A & B, NAAT
Negative results must be combined with clinical observations
and patient history.
Nucleic Acid Amplification test (NAAT)performed on the
[employer] platform.
Care Review
Plan reviewed with: Physician (Dr Lobo - ID recs)
[2023-11-23 16:46] LABS: Glucose - Point of Care 110 mg/dl (70-99)
[2023-11-23] MEDS: NOVOLOG FLEXPEN-LOW RESISTANCE SC (16:54)
[2023-11-23] MEDS: CRESTOR 40 MG PO (17:15)
[2023-11-23] MEDS: METAMUCIL, KONSYL 1 PACKET PO (17:15)
[2023-11-23] MEDS: PLAVIX 75 MG PO (17:15)
[2023-11-23 20:00] VITALS: BP 124/60
[2023-11-23 21:27] LABS: Glucose - Point of Care 192 mg/dl (70-99)
[2023-11-23] MEDS: TYLENOL 500 MG PO (21:29)
[2023-11-23] MEDS: LOPRESSOR 25 MG PO (21:29)
[2023-11-23] MEDS: BENADRYL 25 MG PO (21:30)
[2023-11-23] MEDS: LANTUS 0.349999999999999978 UNITS SC (21:30)
[2023-11-23 23:47] VITALS: BP 94/63
--- NOTE | 2023-11-24 02:50 | PTCARENOTE ---
Patient in bathroom, appears very dyspneic and pale. States he is having a hard time 'catching my breath'. Patient ambulated back to bed with assistance. Severely HUERTA. O2 increased to 6L. Lungs auscultated and crackles heard at bases along with some
wheezing. Pulse Ox 92% on 6L. Current BP 125/59. VJ Raphael notified of change in patient's status, APPETIZER PACKER to come assess patient. Will monitor, care ongoing.
[2023-11-24] MEDS: XOPENEX 0.63 MG INHALANT SOLUTION 0.630000000000000004 MG INH (03:17)
--- NOTE | 2023-11-24 03:22 | W.PN.UPDATE ---
Update Note
Progress Note Update
Patient complained of SOB, SPO2 92% on 6L of o2, denied chest pain. Diminished lung sounds on exam. Patient is coughing and complained of sore throat.
-Chest x-ray, Covid, flu, lactic acid, repeated proBNP ordered.
Xopenex nebs PRN for SOB.
- Chest x-ray result is pending.
- Covid and flu are neg, Lactic acid normal.
- ProBNP is 5350 increased from previous result 1140, Will give morning dose of IV Lasix now.
[2023-11-24 03:46] VITALS: BP 125/59
[2023-11-24 03:47] VITALS: BMI 31.7
[2023-11-24 03:50] LABS: % Basophils 0.3 % (0-2); % Immature Granulocytes 0.9 % (0-0.5); % Lymphocytes 4.4 % (20.5-51.1); % Monocytes 5.1 % (1.7-9.3); % Neutrophils 48.3 % (42.2-75.2); Absolute Basophils 0.1 10^3/uL (0-0.2); Absolute Eosinophils 11.4 10^3/uL (0-0.7); Absolute Immature Granulocytes 0.2 10^3/uL (0-0.05); Absolute Lymphocytes 1.2 10^3/uL (1.2-3.4); Absolute Monocytes 1.4 10^3/uL (0.1-0.6); Absolute Neutrophils 13.4 10^3/uL (1.4-6.5); Hematocrit 31.2 % (39.0-52.0); Hemoglobin 10.2 g/dL (13.0-18.0); Mean Corp Hgb Conc. 32.7 g/dL (33.0-37.0); Mean Corpuscular Hgb 29.1 pg (27.0-31.0); Mean Corpuscular Volume 88.9 fL (80.0-94.0); Nucleated Red Blood Cells % 0 % (-); Platelet Count 325 10^3/uL (130-400); Red Blood Cell Count 3.51 10^6/uL (4.70-6.10); Red Cell Dist. Width 15.1 % (11.5-14.5); White Blood Cell Count 27.8 10^3/uL (4.8-10.8)
[2023-11-24 03:55] LABS: Lactic Acid 1.1 mmol/L (0.7-2.0); Magnesium 2.3 mg/dl (1.6-2.3)
[2023-11-24 03:57] LABS: Blood Urea Nitrogen 56 mg/dl (9-20); Calcium 8.6 mg/dl (8.4-10.2); Carbon Dioxide 26 mmol/L (22-30); Chloride 101 mmol/L (98-107); Estimated Creatinine Clearance 37 ml/min; Glucose 119 mg/dl (70-99); Potassium 4.2 mmol/L (3.5-5.1); Sodium 134 mmol/L (135-145); eGFR 34.79
[2023-11-24 04:03] LABS: COVID-19 Antigen Negative (Negative)
[2023-11-24 04:07] LABS: NT-proBNP 5350 pg/ml
[2023-11-24 04:08] LABS: Mean Platelet Volume 9.2 fL (7.4-10.4)
[2023-11-24] MEDS: LASIX 40 MG IV ×2 (05:59→17:12)
--- NOTE | 2023-11-24 06:37 | PTCARENOTE ---
Patient remains dyspneic. BNP now 5350. Pattie ZABALA gave order to give 0800 Lasix 40mg IV now. Care ongoing.
[2023-11-24 07:00] VITALS: BP 94/53
[2023-11-24 08:40] LABS: Glucose - Point of Care 140 mg/dl (70-99)
[2023-11-24] MEDS: NOVOLOG FLEXPEN-LOW RESISTANCE SC (08:41)
[2023-11-24] MEDS: ANESTHETIC LOZENGE 1 LOZENGE PO (09:25)
[2023-11-24] MEDS: FLOMAX 0.400000000000000022 MG PO ×2 (09:25→20:07)
[2023-11-24] MEDS: VISBIOME 1 CAP PO (09:26)
[2023-11-24] MEDS: VITAMIN D3 (cholecalciferol) 100 MCG PO (09:26)
[2023-11-24] MEDS: MUCINEX 600 MG PO ×2 (09:26→20:16)
[2023-11-24] MEDS: LOPRESSOR 25 MG PO ×2 (09:26→20:10)
[2023-11-24] MEDS: PACERONE 200 MG PO ×3 (09:26→22:51)
[2023-11-24] MEDS: OMNICEF 300 MG PO ×2 (09:26→20:26)
[2023-11-24] MEDS: ELIQUIS 2.5 MG PO ×2 (09:27→20:04)
--- NOTE | 2023-11-24 10:04 | CM ---
Pt oxygen need increased to 6 liters Pox 97%.
IV Lasix.
Venous Doppler to LE study ordered .
Will need home oxygen test closer to dc.
Offered VN he declined need.
PLAN Home no needs . Watch for home oxygen needs
--- NOTE | 2023-11-24 10:57 | W.PN.HOSP.TC ---
Today's Communication/Plan
-
cards recs
wean o2
bronchodilators
trend cbc/cr
cont abx
Assessment / Plan
Assessment / Plan
Physical Exam
General: Other (no acute distress, conversant), chronically ill looking but not toxic appearing
HEENT: Moist mucous membranes and
Respiratory: not much rales. No wheezes. oxygen 6l NC.
Cardiac: S1/S2 irregular irregular, Right upper chest port: not tender or redness in the area
GI: Soft, obese, non tender, +bs
Musculoskeletal: B/L LE edema with erythema (mild venous insufficiency component)
Neuro: AO x 3, followed commands.
Psych: Calm; No agitation.
83 years old male presented with weakness, weight gain and fever for 1 day duration
Assessment and plan
# Sepsis POA ( fever, tachycardia, leukocytosis) due to E Coli complicated UTI
#Leukocytosis likely 2/2 above and G-CSF agents and ?due to malignancy.
No recurrent fever. No more dysuria. Dry cough. No diarrhea.
No gastrointestinal symptoms.
He reported weight gain and exertional shortness of breath but not unusual for him after his lung cancer dx.
Chest x-ray no evidence of pneumonia
Blood culture no growth
Urine with E Coli
s/p Meropenem and now on Cefdinir till 11/30.
High WBC c/w recent G-CSF he received in October.
COVID test is negative.� Negative lactic acid.
Check LE doppler negative.
WBC of 27k but remains afebrile.
ID signed off
# Acute on chronic heart failure with preserved ejection fraction
losartan stopped due to hypotension
Lasix 40 IV bid restarted
Not much improvement in weight.
May need to uptitrate diuretics however, BP and renal failure limiting factors
ECHO EF 45-50%. Mild .
Appreciate cardiology input
#Acute hypoxic respiratory failure likely 2/2 AECHF
Wean o2 as tolerated
No overt wheezing
will add BC. Hold off on system steroids
CXR with Moderate pulmonary edema and small left pleural effusion, progressed.
Probnp elevated to 5350 now compared to 1140
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
bump in cr likely 2/2 diuretics and hypotension due to afib
bladder scan protocol.
Trend cr. remains hypervolemia.
#Hyponatremia ?due to overdiuresis
improving.
#Paroxysmal atrial fibrillation with intermittent RVR
Started on amiodarone and now low dose lopressor.
Soft BP is limiting factor for aggressive rate control
Started on Eliquis
# Anemia
likely of chronic disease and chemotherapy related
monitor daily
monitor closely as started on Eliquis.
# Hx of lung cancer
follows with Dr Shin, Office was notified.
Receiving Chemo and G-CSF agents.
Onc eval.
# History of BPH and obstruction.� Monitor for urinary retention.� Ordered a bladder scan
# History of coronary artery disease.� No chest pain. ASA stopped. Plavix continued. started on lopressor.
#Primary hypertension-now with hypotension. losartan stopped. BP improving
#Diabetes.� Insulin sliding scale.
Poorly controlled. No compliant with diet. HGB A1C 8.1 but with ongoing chemo Tx.
# PVD and carotid artery disease.
DVT ppx-on eliquis now
Anticipated Discharge: > 48 hours
Subjective/Interval History
-
Date of Service: November 24, 2023
Overnight events noted
now on 6L
States breathing treatment helped
passed lot of urine
speaking in complete sentences
states sob compared to last night has improved
Objective Data
-
Labs:
Laboratory Results
11/24/23 11/24/23
03:34 03:35
WBC 27.8 H
Hgb 10.2 L
Hct 31.2 L
Plt Count 325
Sodium 134 L
Potassium 4.2
Chloride 101
Carbon Dioxide 26
BUN 56 H
Creatinine 1.9 H
Glucose 119 H
Calcium 8.6
Vital Signs:
Vital Signs
Temp Pulse Resp BP Pulse Ox
98.0 F 48 19 94/53 97
11/24/23 07:00 11/24/23 07:00 11/24/23 07:00 11/24/23 07:00 11/24/23 07:00
I&O
11/23/23 11/24/23 11/25/23
06:59 06:59 06:59
Intake Total 1020 / 1020 1200 / 1200
Balance 1020 / 1020 1200 / 1200
Data Reviewed
-
Total Time Spent with Patient (in minutes): 55
[2023-11-24 11:00] VITALS: BP 106/58
--- NOTE | 2023-11-24 11:09 | W.PN.ONC ---
Today's Communication / Plan
-
WBC 27.8
s/p Carbo/Taxol/Keytruda 10/31/23
Growth factor administered 11/01
Hgb 10.2, Hct 31.2
Transfuse as needed to maintain Hgb >7
CBC with diff daily
Continue Eliquis and Aspirin
Cardiology following and diuresing
Wean oxygen as able
Supportive care
[facility] has been notified to reschedule treatment next week.
We will follow along.
Impression
Impression
Non-small cell lung cancer, disease progression in lung and hilar node s/p radiation (11/2022)
Chemotherapy: Carbo/Taxol, Pembrolizumab last received 10/31/23
Leukocytosis (s/p GCS-F Rolvedon 11/01/23)
Hypoxic respiratory failure
Shortness of breath
Acute on chronic heart failure
Volume overload
Atrial fibrillation, new
Lower extremity edema
Fevers (resolved)
Hypotension
Subjective/Objective
Subjective/Objective
patient sitting on the side of the bed. reports work of breathing has improved since additional lasix. denies fever.
Vital Signs:
Vital Signs
Temp Pulse Resp BP Pulse Ox
98.0 F 48 19 94/53 97
11/24/23 07:00 11/24/23 07:00 11/24/23 07:00 11/24/23 07:00 11/24/23 07:00
physical exam:
aaox3, pleasant/cooperative
lungs coarse/dim, scattered wheezes
Lab Results:
Laboratory Data
WBC 27.8 10^3/uL (4.8-10.8) H 11/24/23 03:34
Hgb 10.2 g/dL (13.0-18.0) L 11/24/23 03:34
Plt Count 325 10^3/uL (130-400) 11/24/23 03:34
eGFR 34.79 11/24/23 03:35
[2023-11-24] MEDS: DUONEB 3 ML INH ×3 (11:20→20:44)
--- NOTE | 2023-11-24 11:25 | W.PN.ID1 ---
Date of Service
Date of Service: November 24, 2023
Today's Communication
Diarrhea
Persistent Leukocytosis
- discussed with oncology - would expect gcsf to have worn off if given 11/01
- check for c diff - if positive then I will get AXR and start oral vancomycin
- antibiotic associated diarrhea also possible
Assessment / Plan
UTI - complicated
Fever - resolving
SCC on chemotherapy last dose 10/31
Keflex allergy (aminocephalosporin allergy) >10 years ago, rash
- blood cultures x2 no growth to date
- urine culture 100K E coli
- tolerating cefdinir - continue through 11/30
- if rash then treat with certirizine/famotidine
Diarrhea
Persistent Leukocytosis
- discussed with oncology - would expect gcsf to have worn off if given 11/01
- check for c diff - if positive then I would start oral vancomycin and metronidazole
- AXR
- antibiotic associated diarrhea also possible
Chief Complaint
-: Leukocytosis and UTI
Subjective / Review of Systems
no fevers
bp stable
liquid diarrhea x2 days - no abdominal pain or blood in the stool
cough - nonproductive; CXR without infiltrates
abd distended
wound on the toe no erythema, warmth swelling or tenderness
Vital Signs / Physical Exam
Vital Signs
Vital Signs
Temp Pulse Resp BP Pulse Ox
98.0 F 48 19 94/53 97
11/24/23 07:00 11/24/23 07:00 11/24/23 07:00 11/24/23 07:00 11/24/23 07:00
Physical Exam
Constitutional: No Acute Distress
Cardiovascular: Regular Rate and S1/S2; Negative Murmur or Rub
Pulmonary: Clear and Symmetric; Negative Wheezes or Rales
Gastrointestinal: Soft, Non Tender, Distended and Normal Bowel Sounds
Skin: Warm and Dry; Negative Rash or Jaundice
Wound: Other (no erythema, warmth, swelling or tenderness)
Objective Data
Lab Data
Lab Results
11/24/23 03:34
11/24/23 03:35
Estimated Creat Clear 37 ml/min 11/24/23 03:35
Lactic Acid 1.1 mmol/L (0.7-2.0) 11/24/23 03:34
Total Bilirubin 0.5 mg/dl (0.2-1.3) 11/18/23 16:42
AST 25 U/L (17-59) 11/18/23 16:42
ALT 19 U/L (0-50) 11/18/23 16:42
Alkaline Phosphatase 112 U/L (38-126) 11/18/23 16:42
Most recent labs reviewed.
Micro Results:
11/24/23 03:24 Influenza Types A & B (MRAY) - Final
Nasal Swab Negative for Influenza A & B, NAAT
Negative results must be combined with clinical observations
and patient history.
Nucleic Acid Amplification test (NAAT)performed on the
[employer] platform.
11/18/23 17:54 Blood Culture - Final
Blood/Venous No Growth - Final Report
11/18/23 17:49 Blood Culture - Final
Blood/Venous No Growth - Final Report
11/18/23 16:54 Urine Culture - Final
Urine Escherichia coli
11/18/23 14:18 Influenza Types A & B (MARY) - Final
Nasal Swab Negative for Influenza A & B, NAAT
Negative results must be combined with clinical observations
and patient history.
Nucleic Acid Amplification test (NAAT)performed on the
[employer] platform.
[2023-11-24 12:25] LABS: Glucose - Point of Care 199 mg/dl (70-99)
[2023-11-24] MEDS: TESSALON PERLES 100 MG PO (13:16)
[2023-11-24] MEDS: NOVOLOG FLEXPEN-LOW RESISTANCE 1 UNITS SC ×2 (13:24→17:13)
[2023-11-24 15:00] VITALS: BP 91/53
[2023-11-24 16:56] LABS: Glucose - Point of Care 157 mg/dl (70-99)
[2023-11-24] MEDS: PLAVIX 75 MG PO (17:12)
[2023-11-24] MEDS: METAMUCIL, KONSYL 1 PACKET PO (17:12)
[2023-11-24] MEDS: CRESTOR 40 MG PO (17:12)
[2023-11-24] MEDS: MIRALAX 17 GRAMS PO (17:12)
[2023-11-24 19:54] VITALS: BP 110/58
[2023-11-24] MEDS: MIRALAX PO (20:01)
[2023-11-24 22:31] LABS: Glucose - Point of Care 215 mg/dl (70-99)
[2023-11-24] MEDS: LANTUS 0.349999999999999978 UNITS SC (22:41)
--- NOTE | 2023-11-24 23:38 | W.PN.CARDCBS ---
Today's Communication / Plan
-
Continue diuresis
Impression / Plan
-
PCP: VJ Bro
CDY: Jia Blackburn MD
Impression:
Presented 11/18/2023 with edema, SOB
Acute on chronic HFpEF
NSVT
Paroxysmal atrial fibrillation
Fever/UTI
CAD
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
PCI LM and LCx 06/2015
s/p cath with patent KINCAID-LAD and stents, non new occlusive disease 10/22/22
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
COPD/Emphysema
PVD - fem bypass and [employer] LCF 2016
CEA B/L 2018
AAA 3.2cm
PAF
CDK3a
HTN
HLD
KIM
RBBB
DM2
Former smoker
Echo 10/22/2022�EF 65 to 70%.� Mild MR.� Aortic valve gradients 20/8 mmHg peak/mean consistent with mild aortic valve stenosis.� Trace TR with PA pressure 30 to 35 mmHg
Plan:
-Volume status is improving now with complaints of worsening of chronic diarrhea
-Continue IV Lasix and follow renal function
-Outpatient dose of losartan 100 mg daily was decreased to 25 mg daily and then stopped this admission due to KATHARINE and hypotension.
Paroxysmal atrial fibrillation
-Patient started on amiodarone 200 mg TID 11/21/23 for recurrence of Afib this admission
-New to Eliquis 2.5 mg BID (age 83, Cre 1.7, wt 103 kg). Stop outpatient dose of aspirin but keep on Plavix given CAD and PAD
-Repeat twelve-lead EKG
-Could consider eventual cardioversion if remains in atrial fibrillation once infectious issues have resolved
UTI status post antibiotics now concern for C. difficile
-ID is following
-He currently is undergoing treatment for squamous cell lung cancer of the left lobe. He was scheduled for treatment 11/21/23
HPI: He has a complex medical history including VT/VF Cardiac arrest with LM stenosis urgent CABGx1 KINCAID-LAD 04/2015, PCI LM and LCx 06/2015, PAfib, PVD with multiple peripheral interventions including fem bypass, b/l CEA 2018, AAA, HTN, HLD, DM2,
CKD3, RBBB, KIM, COPD/Emphysema and MICHEAL lung CA on chemo/XRT.
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
Subjective
Date of Service: November 24, 2023
Seen and examined. Sitting out of bed to chair. Reports nonbloody diarrhea but no other complaints.
Objective
Labs:
11/24/23 03:34
11/24/23 03:35
Labs
Hgb 10.2 g/dL (13.0-18.0) L 11/24/23 03:34
Hct 31.2 % (39.0-52.0) L 11/24/23 03:34
Plt Count 325 10^3/uL (130-400) 11/24/23 03:34
Sodium 134 mmol/L (135-145) L 11/24/23 03:35
Potassium 4.2 mmol/L (3.5-5.1) 11/24/23 03:35
BUN 56 mg/dl (9-20) H 11/24/23 03:35
Creatinine 1.9 mg/dL (0.7-1.3) H 11/24/23 03:35
Glucose 119 mg/dl (70-99) H 11/24/23 03:35
Vital Signs and I&O:
Vital Signs
Temp Pulse Resp BP Pulse Ox
98.7 F 82 20 101/50 99
11/24/23 23:10 11/24/23 22:51 11/24/23 23:10 11/24/23 22:51 11/24/23 23:10
Vital Signs
Temp Pulse Resp BP Pulse Ox
98.7 F 82 20 101/50 99
11/24/23 23:10 11/24/23 22:51 11/24/23 23:10 11/24/23 22:51 11/24/23 23:10
Intake & Output
11/22/23 11/23/23 11/24/23 11/25/23
06:59 06:59 06:59 06:59
Intake Total 930 / 930 1020 / 1020 1200 / 1200 1140 / 1140
Output Total 300 / 300
Balance 630 / 630 1020 / 1020 1200 / 1200 1140 / 1140
Physical Exam
Physical Exam
GEN: No distress, awake, Ox3
HEENTmmm
LUNGS: scatt rhonchi
CV: Irreg, S1/S2, 1/6 syst LSB, no gallop
ABD: soft, BS+, NT/ND
EXT: +1 edema
[2023-11-25 03:04] VITALS: BP 102/85
[2023-11-25 05:15] VITALS: BMI 31.8
[2023-11-25 05:38] LABS: % Basophils 0.4 % (0-2); % Eosinophils 45.4 % (0-6); % Immature Granulocytes 0.7 % (0-0.5); % Monocytes 4.8 % (1.7-9.3); % Neutrophils 44.7 % (42.2-75.2); Absolute Basophils 0.1 10^3/uL (0-0.2); Absolute Eosinophils 14.2 10^3/uL (0-0.7); Absolute Immature Granulocytes 0.2 10^3/uL (0-0.05); Absolute Lymphocytes 1.3 10^3/uL (1.2-3.4); Absolute Monocytes 1.5 10^3/uL (0.1-0.6); Hematocrit 29.8 % (39.0-52.0); Hemoglobin 9.7 g/dL (13.0-18.0); Mean Corp Hgb Conc. 32.6 g/dL (33.0-37.0); Mean Platelet Volume 9.4 fL (7.4-10.4); Nucleated Red Blood Cells % 0 % (-); Platelet Count 302 10^3/uL (130-400); Red Blood Cell Count 3.35 10^6/uL (4.70-6.10); Red Cell Dist. Width 15.2 % (11.5-14.5); White Blood Cell Count 31.3 10^3/uL (4.8-10.8)
[2023-11-25 06:09] LABS: Blood Urea Nitrogen 54 mg/dl (9-20); Calcium 8.4 mg/dl (8.4-10.2); Carbon Dioxide 27 mmol/L (22-30); Chloride 102 mmol/L (98-107); Estimated Creatinine Clearance 35 ml/min; Glucose 125 mg/dl (70-99); Potassium 4.6 mmol/L (3.5-5.1); Sodium 133 mmol/L (135-145); eGFR 32.71
[2023-11-25] MEDS: DUONEB 3 ML INH ×4 (07:05→19:36)
[2023-11-25 07:09] VITALS: BP 104/56
[2023-11-25 08:01] LABS: Glucose - Point of Care 131 mg/dl (70-99)
[2023-11-25] MEDS: NOVOLOG FLEXPEN-LOW RESISTANCE SC (08:24)
[2023-11-25] MEDS: ELIQUIS 2.5 MG PO ×2 (08:24→20:50)
[2023-11-25] MEDS: FLOMAX 0.400000000000000022 MG PO ×2 (08:25→20:57)
[2023-11-25] MEDS: PACERONE 200 MG PO ×3 (08:33→21:46)
[2023-11-25] MEDS: MUCINEX 600 MG PO ×2 (08:34→21:44)
[2023-11-25] MEDS: OMNICEF 300 MG PO (08:34)
[2023-11-25] MEDS: LOPRESSOR 25 MG PO ×2 (08:34→21:01)
[2023-11-25] MEDS: VITAMIN D3 (cholecalciferol) 100 MCG PO (08:34)
[2023-11-25] MEDS: VISBIOME 1 CAP PO (08:34)
[2023-11-25] MEDS: LASIX 40 MG IV (08:35)
[2023-11-25] MEDS: MIRALAX 17 GRAMS PO ×2 (08:37→21:09)
[2023-11-25] MEDS: FLUSH (NSS) 2 FLUSH IV (08:39)
--- NOTE | 2023-11-25 10:15 | W.PN.ID1 ---
Date of Service
Date of Service: November 25, 2023
Today's Communication
Eosinophilia - AEC 14.2
- no rash of lymphadenopathy,
- stopped cefdinir, probiotics
- consider stopping nonessential medications - notified hospitalist
- manual diff added on
- check lfts
- has completed an adequate course of antibiotics at this time
- follow clinically
Assessment / Plan
UTI - resolved
SCC on chemotherapy last dose 10/31
Keflex allergy (aminocephalosporin allergy) >10 years ago, rash
Eosinophilia - AEC 14.2
- no rash, lymphadenopathy, malaise
- stopped cefdinir, probiotics
- consider stopping nonessential medications - notified hospitalist
- manual diff added on
- check lfts
- has completed an adequate course of antibiotics at this time
- follow clinically
Chief Complaint
-: Leukocytosis and UTI
Subjective / Review of Systems
afebrile
bp stable
eosinophilia noted; persistent leukocytosis
cr slowly increasing
covid and flu were negative yesterday
AXR with most likely ileus - stool noted
CXR pulmonary edema
no malaise, fevers, chills, rash or lymphadneopathy
'I feel fine, when can I go?'
Vital Signs / Physical Exam
Vital Signs
Vital Signs
Temp Pulse Resp BP Pulse Ox
98.1 F 72 18 104/56 90
11/25/23 07:09 11/25/23 08:35 11/25/23 08:08 11/25/23 08:35 11/25/23 08:08
Physical Exam
Constitutional: No Acute Distress and Chronically Ill
Lymph Nodes: Negative Lymphadenopathy
Cardiovascular: Regular Rate and S1/S2; Negative Murmur or Rub
Pulmonary: Clear and Symmetric; Negative Wheezes or Rales
Gastrointestinal: Soft, Non Tender, Non Distended and Normal Bowel Sounds
Skin: Warm and Dry; Negative Rash or Jaundice
Objective Data
Lab Data
Lab Results
11/25/23 05:25
11/25/23 05:25
Estimated Creat Clear 35 ml/min 11/25/23 05:25
Lactic Acid 1.1 mmol/L (0.7-2.0) 11/24/23 03:34
Total Bilirubin 0.5 mg/dl (0.2-1.3) 11/18/23 16:42
AST 25 U/L (17-59) 11/18/23 16:42
ALT 19 U/L (0-50) 11/18/23 16:42
Alkaline Phosphatase 112 U/L (38-126) 11/18/23 16:42
Most recent labs reviewed.
Micro Results:
11/24/23 03:24 Influenza Types A & B (MARY) - Final
Nasal Swab Negative for Influenza A & B, NAAT
Negative results must be combined with clinical observations
and patient history.
Nucleic Acid Amplification test (NAAT)performed on the
[employer] ID NOW platform.
11/18/23 17:54 Blood Culture - Final
Blood/Venous No Growth - Final Report
11/18/23 17:49 Blood Culture - Final
Blood/Venous No Growth - Final Report
11/18/23 16:54 Urine Culture - Final
Urine Escherichia coli
11/18/23 14:18 Influenza Types A & B (MARY) - Final
Nasal Swab Negative for Influenza A & B, NAAT
Negative results must be combined with clinical observations
and patient history.
Nucleic Acid Amplification test (NAAT)performed on the
[employer] NOW platform.
Care Review
Plan reviewed with: Physician (Dr Pierre, Dr Tubbs)
[2023-11-25 10:41] LABS: Absolute Neutrophils -Man Diff 12.8 10^3/uL (1.4-6.5); Band Neutrophils 0 % (0-3); Eosinophils 44 % (0-6); Lymphocytes 8 % (20-51); Monocytes 6 % (2-9); Platelets Checked Yes; Segmented Neutrophils 41 % (42-75)
[2023-11-25 10:42] LABS: Anisocytosis Slight; Hypochromasia 1+; Microcytosis 1+; Normal RBC Morphology No; Total Cells Counted 100
[2023-11-25 10:57] VITALS: BP 105/60
[2023-11-25 11:17] LABS: ALT (SGPT) 11 U/L (0-50); AST (SGOT) 16 U/L (17-59); Albumin 2.6 g/dl (3.5-5.0); Alkaline Phosphatase 74 U/L (38-126); Total Bilirubin 0.3 mg/dl (0.2-1.3); Total Protein 6.5 g/dl (6.3-8.2)
--- NOTE | 2023-11-25 11:49 | W.PN.HOSP.TC ---
Today's Communication/Plan
-
Off antibiotic
Bowel regiment
Continue with Lasix
Wean oxygen as tolerated
Hold off on imaging today
Assessment / Plan
Assessment / Plan
Physical Exam
General: Other (no acute distress, conversant), chronically ill looking but not toxic appearing
HEENT: Moist mucous membranes and
Respiratory: not much rales. No wheezes. oxygen 4l NC.
Cardiac: S1/S2 irregular irregular, Right upper chest port: not tender or redness in the area
GI: Soft, obese, non tender, +bs
Musculoskeletal: B/L LE edema with erythema (mild venous insufficiency component)
Neuro: AO x 3, followed commands.
Psych: Calm; No agitation.
83 years old male presented with weakness, weight gain and fever for 1 day duration
Assessment and plan
# Sepsis POA ( fever, tachycardia, leukocytosis) due to E Coli complicated UTI
#Leukocytosis likely 2/2 above and G-CSF agents and ?due to malignancy.
#Eosinophilia
No recurrent fever. No more dysuria. Dry cough. No diarrhea. No body rash.
No gastrointestinal symptoms.
He reported weight gain and exertional shortness of breath but not unusual for him after his lung cancer dx.
Chest x-ray no evidence of pneumonia
Blood culture no growth
Urine with E Coli
s/p Meropenem and Cefdinir was stopped today. Monitor off antibiotics.
High WBC c/w recent G-CSF he received in October.
COVID test is negative.� Negative lactic acid.
Check LE doppler negative.
WBC of 31k but remains afebrile.
ID signed off
#Adynamic Ileus
No nausea or vomiting.
Denies abdominal pain or distention
No hiccups
Tolerating diet. MiraLAX started. Will add dulcolax
If no improvement will order enema
Hold off on CT abdomen pelvis for now
# Acute on chronic heart failure with preserved ejection fraction
losartan stopped due to hypotension
Lasix 40 IV bid restarted
Not much improvement in weight.
May need to uptitrate diuretics however, BP and renal failure limiting factors
ECHO EF 45-50%. Mild .
Appreciate cardiology input
#Acute hypoxic respiratory failure likely 2/2 AECHF
Wean o2 as tolerated
No overt wheezing
will add BC. Hold off on system steroids
CXR with Moderate pulmonary edema and small left pleural effusion, progressed.
Probnp elevated to 5350 now compared to 1140
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
bump in cr likely 2/2 diuretics and hypotension due to afib
bladder scan protocol.
Trend cr. remains hypervolemia.
Creatinine noted to. Will continue to monitor.
#Hyponatremia ?due to overdiuresis
improving.
#Paroxysmal atrial fibrillation with intermittent RVR
Started on amiodarone and now low dose lopressor.
Soft BP is limiting factor for aggressive rate control
Started on Eliquis
# Anemia
likely of chronic disease and chemotherapy related
monitor daily
monitor closely as started on Eliquis.
# Hx of lung cancer
follows with Dr Shin, Office was notified.
Receiving Chemo and G-CSF agents.
Onc eval.
# History of BPH and obstruction.� Monitor for urinary retention.� Ordered a bladder scan
# History of coronary artery disease.� No chest pain. ASA stopped. Plavix continued. started on lopressor.
#Primary hypertension-now with hypotension. losartan stopped. BP improving
#Diabetes.� Insulin sliding scale.
Poorly controlled. No compliant with diet. HGB A1C 8.1 but with ongoing chemo Tx.
# PVD and carotid artery disease.
DVT ppx-on eliquis now
Anticipated Discharge: > 48 hours
Subjective/Interval History
-
Date of Service: November 25, 2023
SOB earlier today
loose stools -liquids only
no nausea or vomiting
Objective Data
-
Labs:
Laboratory Results
11/25/23 11/25/23
05:25 10:27
WBC 31.3 H
Hgb 9.7 L
Hct 29.8 L
Plt Count 302
Sodium 133 L
Potassium 4.6
Chloride 102
Carbon Dioxide 27
BUN 54 H
Creatinine 2.0 H
Glucose 125 H
Calcium 8.4
Total Bilirubin 0.3 Cancelled
AST 16 L Cancelled
ALT 11 Cancelled
Alkaline Phosphatase 74 Cancelled
Vital Signs:
Vital Signs
Temp Pulse Resp BP Pulse Ox
98.1 F 65 18 105/60 92
11/25/23 10:57 11/25/23 11:26 11/25/23 11:26 11/25/23 10:57 11/25/23 11:26
I&O
11/24/23 11/25/23 11/26/23
06:59 06:59 06:59
Intake Total 1200 / 1200 1500 / 1500
Balance 1200 / 1200 1500 / 1500
Data Reviewed
-
Total Time Spent with Patient (in minutes): 55
--- NOTE | 2023-11-25 11:56 | CM ---
Pt oxygen need decreased to 4 liters Pox 92%.
Will need home oxygen test closer to dc if not weaned off.
IV Lasix BID continues.
Continue IV antibiotics
Offered VN he declined need.
PLAN Home no needs . Watch for home oxygen needs
[2023-11-25 12:20] LABS: Glucose - Point of Care 235 mg/dl (70-99)
[2023-11-25] MEDS: DULCOLAX 10 MG PO (12:33)
[2023-11-25] MEDS: NOVOLOG FLEXPEN-LOW RESISTANCE 2 UNITS SC ×2 (12:33→17:55)
[2023-11-25 15:04] VITALS: BP 98/51
--- NOTE | 2023-11-25 16:17 | W.PN.CARDCBS ---
Today's Communication / Plan
-
Will discuss increasing leukocytosis with hospitalist and ID service
If medical/infectious issues stable can proceed with DANIEL/ cardioversion on Tuesday
Impression / Plan
-
PCP: VJ Bro
CDY: Jia Blackburn MD
Impression:
Presented 11/18/2023 with edema, SOB
Acute on chronic HFpEF
NSVT
Paroxysmal atrial fibrillation
Fever/UTI
CAD
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
PCI LM and LCx 06/2015
s/p cath with patent KINCAID-LAD and stents, non new occlusive disease 10/22/22
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
COPD/Emphysema
PVD - fem bypass and [employer] [facility] 2016
CEA B/L 2018
AAA 3.2cm
PAF
CDK3a
HTN
HLD
KIM
RBBB
DM2
Former smoker
Echo 10/22/2022�EF 65 to 70%.� Mild MR.� Aortic valve gradients 20/8 mmHg peak/mean consistent with mild aortic valve stenosis.� Trace TR with PA pressure 30 to 35 mmHg
Plan:
-Volume status is improving now with complaints of worsening of chronic diarrhea
-Continue IV Lasix and follow renal function
-Outpatient dose of losartan 100 mg daily was decreased to 25 mg daily and then stopped this admission due to KATHARINE and hypotension.
Paroxysmal atrial fibrillation
-Patient started on amiodarone 200 mg TID 11/21/23 for recurrence of Afib this admission
-New to Eliquis 2.5 mg BID (age 83, Cre 1.7, wt 103 kg). Stop outpatient dose of aspirin but keep on Plavix given CAD and PAD
-Repeat twelve-lead EKG-pending
-Discussed proceeding with DANIEL/DC cardioversion if remains in atrial fibrillation on Tuesday and he is agreeable.
Acute on chronic renal sufficiency with creatinine up to 2
-Hold further diuresis
-Monitor renal function
-E. coli UTI status post antibiotics
Increasing leukocytosis�ID following
-He currently is undergoing treatment for squamous cell lung cancer of the left lobe. He was scheduled for treatment 11/21/23
HPI: He has a complex medical history including VT/VF Cardiac arrest with LM stenosis urgent CABGx1 KINCAID-LAD 04/2015, PCI LM and LCx 06/2015, PAfib, PVD with multiple peripheral interventions including fem bypass, b/l CEA 2018, AAA, HTN, HLD, DM2,
CKD3, RBBB, KIM, COPD/Emphysema and MICHEAL lung CA on chemo/XRT.
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
Subjective
Date of Service: November 25, 2023
Seen and examined. Overall states he feels fatigued. No chest pain or shortness of breath at rest. No palpitations
Objective
Labs:
11/25/23 05:25
11/25/23 05:25
Labs
Hgb 9.7 g/dL (13.0-18.0) L 11/25/23 05:25
Hct 29.8 % (39.0-52.0) L 11/25/23 05:25
Plt Count 302 10^3/uL (130-400) 11/25/23 05:25
Sodium 133 mmol/L (135-145) L 11/25/23 05:25
Potassium 4.6 mmol/L (3.5-5.1) 11/25/23 05:25
BUN 54 mg/dl (9-20) H 11/25/23 05:25
Creatinine 2.0 mg/dL (0.7-1.3) H 11/25/23 05:25
Glucose 125 mg/dl (70-99) H 11/25/23 05:25
Vital Signs and I&O:
Vital Signs
Temp Pulse Resp BP Pulse Ox
98.3 F 102 18 98/51 93
11/25/23 15:04 11/25/23 15:28 11/25/23 15:28 11/25/23 15:04 11/25/23 15:28
Vital Signs
Temp Pulse Resp BP Pulse Ox
98.3 F 102 18 98/51 93
11/25/23 15:04 11/25/23 15:28 11/25/23 15:28 11/25/23 15:04 11/25/23 15:28
Intake & Output
11/23/23 11/24/23 11/25/23 11/26/23
06:59 06:59 06:59 06:59
Intake Total 1020 / 1020 1200 / 1200 1500 / 1500
Balance 1020 / 1020 1200 / 1200 1500 / 1500
Physical Exam
Physical Exam
GEN: No distress, awake, Ox3
HEENTmmm
LUNGS: scatt rhonchi
CV: Irreg, S1/S2, 1/6 syst LSB, no gallop
ABD: soft, BS+, NT/ND
EXT: +1 edema
[2023-11-25] MEDS: LASIX IV (17:16)
[2023-11-25 17:31] LABS: Glucose - Point of Care 207 mg/dl (70-99)
[2023-11-25] MEDS: METAMUCIL, KONSYL 1 PACKET PO (17:55)
[2023-11-25] MEDS: PLAVIX 75 MG PO (17:55)
[2023-11-25] MEDS: CRESTOR 40 MG PO (17:55)
[2023-11-25 19:56] VITALS: BP 130/64
[2023-11-25 22:20] LABS: Glucose - Point of Care 200 mg/dl (70-99)
[2023-11-25] MEDS: LANTUS 0.349999999999999978 UNITS SC (22:47)
[2023-11-25 23:56] VITALS: BP 130/68
[2023-11-26] VITALS (9 sets, daily range): BP systolic 91–115; BP diastolic 52–71; BMI 32.3
[2023-11-26] MEDS: DUONEB 3 ML INH ×5 (00:58→19:33)
[2023-11-26 08:16] LABS: Glucose - Point of Care 143 mg/dl (70-99)
[2023-11-26 08:20] LABS: NT-proBNP 3170 pg/ml
[2023-11-26] MEDS: MUCINEX 600 MG PO ×2 (08:53→20:20)
[2023-11-26] MEDS: LOPRESSOR 25 MG PO ×2 (08:53→21:09)
[2023-11-26] MEDS: VITAMIN D3 (cholecalciferol) 100 MCG PO (08:53)
[2023-11-26] MEDS: FLOMAX 0.400000000000000022 MG PO ×2 (08:53→20:20)
[2023-11-26] MEDS: ELIQUIS 2.5 MG PO ×2 (08:53→20:20)
[2023-11-26] MEDS: NOVOLOG FLEXPEN-LOW RESISTANCE SC (08:53)
[2023-11-26] MEDS: PACERONE 200 MG PO ×3 (08:53→22:24)
[2023-11-26] MEDS: MIRALAX 17 GRAMS PO ×2 (08:54→20:20)
[2023-11-26 09:22] LABS: Blood Urea Nitrogen 58 mg/dl (9-20); Calcium 8.6 mg/dl (8.4-10.2); Carbon Dioxide 29 mmol/L (22-30); Chloride 97 mmol/L (98-107); Estimated Creatinine Clearance 33 ml/min; Glucose 143 mg/dl (70-99); Potassium 4.6 mmol/L (3.5-5.1); Sodium 132 mmol/L (135-145); eGFR 30.85
[2023-11-26 09:26] LABS: % Basophils 0.4 % (0-2); % Eosinophils 49.2 % (0-6); % Immature Granulocytes 0.6 % (0-0.5); % Lymphocytes 4.7 % (20.5-51.1); % Monocytes 4.7 % (1.7-9.3); % Neutrophils 40.4 % (42.2-75.2); Absolute Basophils 0.1 10^3/uL (0-0.2); Absolute Eosinophils 16.8 10^3/uL (0-0.7); Absolute Immature Granulocytes 0.2 10^3/uL (0-0.05); Absolute Lymphocytes 1.6 10^3/uL (1.2-3.4); Absolute Monocytes 1.6 10^3/uL (0.1-0.6); Absolute Neutrophils 13.8 10^3/uL (1.4-6.5); Hematocrit 29.5 % (39.0-52.0); Hemoglobin 9.7 g/dL (13.0-18.0); Mean Corp Hgb Conc. 32.9 g/dL (33.0-37.0); Mean Corpuscular Hgb 29.1 pg (27.0-31.0); Mean Corpuscular Volume 88.6 fL (80.0-94.0); Mean Platelet Volume 9.5 fL (7.4-10.4); Nucleated Red Blood Cells % 0 % (-); Platelet Count 298 10^3/uL (130-400); Red Blood Cell Count 3.33 10^6/uL (4.70-6.10); Red Cell Dist. Width 15.4 % (11.5-14.5); White Blood Cell Count 34.2 10^3/uL (4.8-10.8)
--- NOTE | 2023-11-26 11:11 | W.PN.HOSP.TC ---
Addendum entered and electronically signed by Magdi Pierre MD 11/26/23 16:11:
Oncology correspondence noted. Will ask ID to reevaluate patient for antibiotics as cefdinir was stopped yesterday.
Addendum entered and electronically signed by Magdi Pierre MD 11/26/23 11:18:
off note-pt did not want me to call family and update them. State he has been talking to spouse and updating her.
Original Note:
Today's Communication/Plan
-
Restarted IV lasix
CXR with edema
symptomatic
enema ordered
nephro eval
Tx to IMU
Assessment / Plan
Assessment / Plan
Physical Exam
General: tachypneic, chronically ill looking but not toxic appearing
HEENT: Moist mucous membranes and
Respiratory: not much rales. No wheezes. oxygen 9L midflow now
Cardiac: S1/S2 irregular irregular, Right upper chest port: not tender or redness in the area
GI: Soft, obese, non tender, +bs
Musculoskeletal: B/L LE edema with erythema (mild venous insufficiency component)
Neuro: AO x 3, followed commands.
Psych: Calm; No agitation.
83 years old male presented with weakness, weight gain and fever for 1 day duration
Assessment and plan
# Sepsis POA ( fever, tachycardia, leukocytosis) due to E Coli complicated UTI
#Leukocytosis likely 2/2 above and G-CSF agents and ?due to malignancy.
#Eosinophilia
No recurrent fever. No more dysuria. Dry cough. No diarrhea. No body rash.
No gastrointestinal symptoms.
He reported weight gain and exertional shortness of breath but not unusual for him after his lung cancer dx.
Chest x-ray no evidence of pneumonia
Blood culture no growth
Urine with E Coli
s/p Meropenem and Cefdinir was stopped 3/2. Monitor off antibiotics.
High WBC c/w recent G-CSF he received in October.
COVID test is negative.� Negative lactic acid.
Check LE doppler negative.
WBC of 34 k but remains afebrile. ?due to severe constipation
ID signed off
#Adynamic Ileus
No nausea or vomiting.
Denies abdominal pain or distention
No hiccups
Tolerating diet. MiraLAX started. Will add dulcolax
Enema ordered
# Acute on chronic heart failure with preserved ejection fraction
losartan stopped due to hypotension
Lasix 40 IV bid restarted
Gaining weight
May need to uptitrate diuretics however, BP and renal failure limiting factors
ECHO EF 45-50%. Mild .
CXR this am with pulmonary edema.
O2 requirement uptrending
nephro for input with elevated cr and diuretics management
Appreciate cardiology input
#Acute hypoxic respiratory failure likely 2/2 AECHF
see plan above
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
bump in cr likely 2/2 diuretics and hypotension due to afib
bladder scan protocol.
Trend cr. remains hypervolemia.
Creatinine noted to. Will continue to monitor.
Nephrology nathan.
#Hyponatremia ?due to overdiuresis
improving.
#Paroxysmal atrial fibrillation with intermittent RVR
Started on amiodarone and now low dose lopressor.
Soft BP is limiting factor for aggressive rate control
Started on Eliquis
# Anemia
likely of chronic disease and chemotherapy related
monitor daily
monitor closely as started on Eliquis.
# Hx of lung cancer
follows with Dr Shin, Office was notified.
Receiving Chemo and G-CSF agents.
Onc eval.
# History of BPH and obstruction.� Monitor for urinary retention.� Ordered a bladder scan
# History of coronary artery disease.� No chest pain. ASA stopped. Plavix continued. started on lopressor.
#Primary hypertension-now with hypotension. losartan stopped. BP improving
#Diabetes.� Insulin sliding scale.
Poorly controlled. No compliant with diet. HGB A1C 8.1 but with ongoing chemo Tx.
# PVD and carotid artery disease.
DVT ppx-on eliquis now
Tx to IMU
Full code
Anticipated Discharge: > 48 hours
Subjective/Interval History
-
Date of Service: November 26, 2023
states of dyspnea
overnight with PND
States of abd distention and mild discomfort
Objective Data
-
Labs:
Laboratory Results
11/26/23 11/26/23
07:45 09:15
WBC 34.2 H
Hgb 9.7 L
Hct 29.5 L
Plt Count 298
Sodium 132 L
Potassium 4.6
Chloride 97 L
Carbon Dioxide 29
BUN 58 H
Creatinine 2.1 H
Glucose 143 H
Calcium 8.6
Vital Signs:
Vital Signs
Temp Pulse Resp BP Pulse Ox
98.3 F 98 20 106/56 86
11/26/23 03:40 11/26/23 08:26 11/26/23 08:26 11/26/23 07:00 11/26/23 07:00
I&O
11/25/23 11/26/23 11/27/23
06:59 06:59 06:59
Intake Total 1500 / 1500 660 / 660
Output Total 50 / 50
Balance 1500 / 1500 610 / 610
Data Reviewed
-
Total Time Spent with Patient (in minutes): 56
--- NOTE | 2023-11-26 11:39 | PTCARENOTE ---
This am pt found to be sitting in tripod position, HUERTA dyspnea at rest with pulse ox 85% on 3 liters. pt with fq cough. irregular breathing, with distress noted, lungs very decreased bilaterally. abd large distended hpyoactive bs. Tele with
AFIB 102 +4 pitting BLE edema. Pt weight today 231 and was 228 yesterday. pt not on fluid restirctions. creat today was 2.1. lasix on hold yesterday for creatinine . PT complained of not being able to sleep all night because he is unable to lye
flat and gets SOB when lying flat. aware and ordered transfer to IMU, PCXR . CXR with pulmonry vascular congestion. IV lasix reordered and renal consult ordered.
[2023-11-26] MEDS: LASIX 40 MG IV (11:47)
--- NOTE | 2023-11-26 13:02 | W.CON.NEPH ---
Consultation
-
Date/Time Consultation Requested: 11/26/2023 11am
Date/Time Consultation Performed: 11/26/2023 1 PM
Requesting Provider: Dr. Pierre
Performing Provider: Dr. Nunez
Reason for Consultation: Acute kidney injury, edema
Medical History
-
Chief Complaint: Acute kidney injury
History of Present Illness:
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 PET scan 07/28/23 showed increase in MICHEAL nodule and a new L AP window node. Bx confirmed progressive disease, PD-L1 negative, no
actionable mutations.� He started carbo/taxol/Keytruda� 10/31/2023.� He presented with 5 days of increased shortness of breath, lower extremity swelling, weight gain, fever..�Upon arrival to [facility], he was found to be afebrile, pulse 77,
breathing at 18, blood pressure 123/57, 92%/RA.� White count 25.3, creatinine 1.2.� Patient was given vancomycin and Ertapenem IV therapy along with 1 dose of Lasix.� During this admission his hypoxemia worsened and his x-ray also worsened as well.
Yesterday his Lasix was held because his creatinine had increased up to 2.1. We are asked to assist with management of his acute kidney injury. He is now on very high-dose mid flow oxygen and will be transferring to the IMU. He is currently
critically ill.
Past Medical History
Hypertension, hyperlipidemia, heart failure, history of cardiac arrest, coronary disease with RI, squamous cell lung cancer status post radiation, chemotherapy, chronic kidney disease 3b, diabetes mellitus type II, peripheral arterial disease, sleep
apnea
bilateral lower extremity bypass, carotid endarterectomy bilaterally, bypass surgery with stent in the past, cholecystectomy
Social History
Tobacco: Former Smoker
Alcohol: Occasional
Family History
Family History: Not Pertinent
Allergies / Home Medications
Allergy/AdvReac Type Severity Reaction Status Date / Time
cephalexin Allergy Mild Rash Verified 11/24/23 15:36
ZACHARY Inhibitors Allergy Shortness Verified 11/18/23 14:11
of
Breath-possible
angioedema-pharm
to review
Iodinated Contrast Media Allergy affected Verified 11/18/23 14:11
[Iodinated Contrast Media - kidneys
Oral and]
sulfamethoxazole Allergy Rash Verified 11/18/23 14:11
[From Bactrim]
trimethoprim [From Bactrim] Allergy Rash Verified 11/18/23 14:11
Medication Instructions Recorded Confirmed Type
aspirin 81 mg tablet,delayed 81 mg PO DAILY@1600 Blood clot 01/22/19 11/18/23 History
release (Adult Low Dose Aspirin) prevention/tx
furosemide 20 mg tablet 20 mg PO BID@0800,1600 Fluid 01/22/19 11/18/23 History
retention/Swelling
rosuvastatin 40 mg tablet (Crestor) 40 mg PO DAILY@1600 High 01/22/19 11/18/23 History
cholesterol
insulin glargine 100 unit/mL 35 units SC HS Diabetes 03/07/20 11/18/23 History
subcutaneous solution (Lantus
U-100 Insulin)
losartan 100 mg tablet 100 mg PO DAILY@1600 Blood pressure 07/15/22 11/18/23 History
psyllium 1 packet PO QPM Constipation ##0 07/15/22 11/18/23 History
tamsulosin 0.4 mg capsule 0.4 mg PO BID Urinary issue 07/15/22 11/18/23 History
clopidogrel 75 mg tablet (Plavix) 75 mg PO DAILY@1600 Blood clot 10/22/22 11/18/23 History
prevention/tx
Lactobac no.2-Bifidobac no.1-S. 1 cap PO DAILY Supplement 11/17/22 11/18/23 History
thermo 112.5 billion cell capsule
(Visbiome)
glipizide 5 mg tablet, extended 5 mg PO BID@0800,1700 Diabetes 11/17/22 11/18/23 History
release 24 hr
azelastine 137 mcg (0.1 %) nasal 1 spray intranasal BID Congestion 09/14/23 11/18/23 History
spray aerosol
cholecalciferol (vitamin D3) 50 100 mcg PO DAILY Supplement 09/14/23 11/18/23 History
mcg (2,000 unit) tablet (Vitamin
D3)
guaifenesin 600 mg tablet, 600 mg PO BID Congestion 09/14/23 11/18/23 History
extended release 12 hr (Mucinex)
diphenhydramine 25 1 tab PO HS Sleep 10/28/23 11/18/23 History
mg-acetaminophen 500 mg tablet
(Tylenol PM Extra Strength)
acetaminophen 650 mg 650 mg PO Q8H PRN prostate 11/18/23 11/18/23 History
tablet,extended release (Tylenol 8
Hour)
Review of Systems
-
Severe shortness of breath. No chest pain. No fevers chills or sweats. Worsening lower extremity edema as well as upper extremity edema. No abdominal pain no issues with urine output. the remainder of the complete review of systems was negative.
Physical Exam
Vital Signs
Vital Signs
Temp Pulse Resp BP Pulse Ox
98.3 F 102 20 106/56 92
11/26/23 03:40 11/26/23 11:50 11/26/23 08:26 11/26/23 07:00 11/26/23 11:50
Lab Results
WBC 34.2 10^3/uL (4.8-10.8) H 11/26/23 09:15
RBC 3.33 10^6/uL (4.70-6.10) L 11/26/23 09:15
Hgb 9.7 g/dL (13.0-18.0) L 11/26/23 09:15
Hct 29.5 % (39.0-52.0) L 11/26/23 09:15
Plt Count 298 10^3/uL (130-400) 11/26/23 09:15
Sodium 132 mmol/L (135-145) L 11/26/23 07:45
Potassium 4.6 mmol/L (3.5-5.1) 11/26/23 07:45
Chloride 97 mmol/L (98-107) L 11/26/23 07:45
Carbon Dioxide 29 mmol/L (22-30) 11/26/23 07:45
BUN 58 mg/dl (9-20) H 11/26/23 07:45
Creatinine 2.1 mg/dL (0.7-1.3) H 11/26/23 07:45
eGFR 30.85 11/26/23 07:45
Glucose 143 mg/dl (70-99) H 11/26/23 07:45
Calcium 8.6 mg/dl (8.4-10.2) 11/26/23 07:45
Ggk-X-Kgmrxirfaek Pept 3170 pg/ml 11/26/23 07:45
Albumin Cancelled 11/25/23 10:27
Physical Exam
General: AOx3
HEENT: PERRL, EOMI, Ear/Nose Intact, Oropharynx Clear/Moist, Neck Supple, Trachea Midline and No Thyromegaly
Respiratory: Crackels (Decreased breath sounds at the bases) and Normal Excursion
Cardiac: Regular Rate/Rhythm
Abdomen: Soft, Nontender, Nondistended, Normal Bowel Sounds and No Hepatosplenomegaly
Musculoskeletal: Edema
Skin: No Rash and Normal Turgor
Psych: Mood/afflect pleasant and Insight/judgement good
Assessment/Plan
-
Assessment
KATHARINE
CKD 3B
Worsening pulmonary edema
Eosinophilia
Recent sepsis
Hyponatremia
Anemia
Diffuse anasarca
Paroxysmal atrial fibrillation
Non-small cell lung cancer
Hypertension
Coronary artery disease
Plan
I discussed at length with Mr. Alvarez. He does have worsening pulmonary edema as well as anasarca. He will require diuresis. He is at high risk for requiring mechanical ventilation. He is agreeable to high-dose Lasix. He understands the risk
of worsening renal function and possibly kidney failure requiring dialysis. He would except dialysis if required in the future.
Increase Lasix to 80 mg IV every 8 hours.
Metolazone may be added tomorrow if needed. Even Lasix drip may be entertained.
Follow BMP
He has no significant proteinuria on urine urinalysis, and no significant liver disease
Critical care time spent 32 minutes
Data Reviewed
-
Radiology: Image Personally Visualized and interpreted (Chest x-ray on 11/26/2023 by my reading shows worsening pulmonary edema compared to prior x-ray)
Medical Tests (Nuc Med, Echo etc): Image Personally Visualized and interpreted (EKG on 11/25/2023 by my reading shows atrial flutter with right bundle branch block and left posterior fascicular block and inferior Q waves) and Report Reviewed by me
(Echocardiogram on 11/21/2023 shows 45% ejection fraction, mild and TR)
Labs: Labs Reviewed by me
Old Records: Reviewed
[2023-11-26 13:04] LABS: Glucose - Point of Care 171 mg/dl (70-99)
[2023-11-26] MEDS: NOVOLOG FLEXPEN-LOW RESISTANCE 1 UNITS SC ×2 (14:33→16:55)
[2023-11-26] MEDS: LASIX 80 MG IV ×2 (14:38→22:24)
--- NOTE | 2023-11-26 14:51 | W.PN.ONC2 ---
Today's Communication / Plan
-
CT chest now, non-contrast.
VQ scan.
Consider empiric antibiotics.
Await D-dimer.
Case d/w Dr. Lobato. Pulmonary will resume following patient tomorrow.
For now, will start Solu-Medrol 40 mg IV Q8 as he has hx COPD and has some minimal wheezing on exam.
Impression
Impression
Non-small cell lung cancer, disease progression in lung and hilar node s/p radiation (11/2022)
Chemotherapy: Carbo/Taxol, Pembrolizumab last received 10/31/23
Leukocytosis (s/p GCS-F Rolvedon 11/01/23)
Hypoxic respiratory failure
Shortness of breath
Acute on chronic heart failure
Volume overload
Atrial fibrillation, new
Lower extremity edema
Fevers (resolved)
Hypotension
Plan
Plan
I am concerned about the increasing oxygen requirement noted in this patient. When I saw him on Tuesday, O2 requirement was 2 L and now it is 8 L by mid flow. His weight on admission was similar to his weight in August and early October.
Although BNP is significantly elevated, question other possible processes such as pulmonary embolism, pneumonitis or atypical infection.
CT chest now, unfortunately unable to give contrast.
VQ scan.
Consider empiric antibiotics.
Case d/w Dr. Lobato. Pulmonary will resume following patient tomorrow.
For now, will start Solu-Medrol 40 mg IV Q8 as he has hx COPD and has some minimal wheezing on exam.
Subjective/Objective
Chief Complaint
Lung cancer, hypoxic respiratory failure
Subjective
Patient states he had a rough night last night, could not breathe. States not diuresing.
Vital Signs:
Vital Signs
Temp Pulse Resp BP Pulse Ox
97.8 F 102 18 105/56 92
03/02/24 11:00 11/26/23 11:50 11/26/23 11:00 11/26/23 11:00 11/26/23 11:50
Lab Results:
Laboratory Data
WBC 34.2 10^3/uL (4.8-10.8) H 11/26/23 09:15
Hgb 9.7 g/dL (13.0-18.0) L 11/26/23 09:15
Plt Count 298 10^3/uL (130-400) 11/26/23 09:15
eGFR 30.85 11/26/23 07:45
Physical Exam
Awake, alert
HEENT: No Jaundice or Moist Mucous Membranes
Cardiology: Normal Sinus Rhythm, S1 and S2
Pulmonary: Wheezes (minimal)
GI: Soft
Extremities: No C/C/E
Neuro: Non Focal
Review of Systems
Review of Systems
Constitutional: Denies Fever
Head: Denies Sore Throat
Respiratory: Reports Dyspnea
Cardiovascular: Denies Chest Pain or Palpitations
Gastrointestinal: Denies Nausea/Vomiting or Diarrhea
Genitourinary: Denies Hematuria
Skin: Denies Rash or Pruritis
Neurological: Denies Headache
Psychiatric: Denies Depression
Hem/Lymphatic: Denies Easy Bruising
--- NOTE | 2023-11-26 16:29 | PTCARENOTE ---
PT sent to CT scan ro PE. Pt still sitting in chair in a tripod position. less SOB and less dyspnic than this AM. PT one assist to wc.
[2023-11-26 16:51] LABS: Glucose - Point of Care 171 mg/dl (70-99)
[2023-11-26 16:53] LABS: D-Dimer 2.81 ug/mlFEU (0.00-0.50)
[2023-11-26] MEDS: METAMUCIL, KONSYL 1 PACKET PO (16:54)
[2023-11-26] MEDS: SOLU-MEDROL PF 40 MG IV (16:54)
[2023-11-26] MEDS: CRESTOR 40 MG PO (16:55)
[2023-11-26] MEDS: PLAVIX 75 MG PO (16:55)
--- NOTE | 2023-11-26 17:02 | W.PN.ID1 ---
Date of Service
Date of Service: November 26, 2023
Today's Communication
See below. Hold abx for now.
Assessment / Plan
#Hypereosinophilia - AEC 14.2
- Preceded cefdinir, not reaction to abx
- no rash, lymphadenopathy, malaise
-? due to adrenal insufficiency - BP on the low side
# Acute hypoxemic respiratory failure progressing, now 8L oxygen despite diuresis
#Leukocytosis continues to trend up. Of note received GCSF 11/01/23
#SCC of lung hx XRT; on Carbo/Taxol, Pembrolizumab last received last dose 10/31
# KATHARINE on CKD
-Afebrile
-Await result of CT c/a/p
-Repeat bcx's, UA/Ucx
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
- Hold off on abx for now unless pt does not respond to steroid.
# New onset Afib
-For cardioversion Tuesday
# s/p UTI treatment
Chief Complaint
-: Leukocytosis, UTI and Other (Eosinophilia)
Subjective / Review of Systems
C/o SOB, dry cough. No diarrhea. Had BM after bowel regimen.
No itching. No rash. + LE edema.
Has burning with urination yesterday.
Vital Signs / Physical Exam
Vital Signs
Vital Signs
Temp Pulse Resp BP Pulse Ox
98.0 F 85 18 91/61 96
11/26/23 16:00 11/26/23 16:00 11/26/23 16:00 11/26/23 16:00 11/26/23 16:00
Physical Exam
Constitutional: No Acute Distress
Eyes: No Conjunctival Hemorrhage and Sclera Anicteric
Pulmonary: Rales (bilateral)
Gastrointestinal: Soft, Non Tender and Non Distended
Genito-Urinary: Negative CVA Tenderness
Extremities: Edema (3+ BLE) and Venous Insufficiency
Skin: Negative Rash
Wound: Other (right great toe callus with fissure, dry, no erythema)
Neurological: AO x 3
Objective Data
Lab Data
Lab Results
11/26/23 09:15
11/26/23 07:45
Estimated Creat Clear 33 ml/min 11/26/23 07:45
Lactic Acid 1.1 mmol/L (0.7-2.0) 11/24/23 03:34
Total Bilirubin Cancelled 11/25/23 10:27
AST Cancelled 11/25/23 10:27
ALT Cancelled 11/25/23 10:27
Alkaline Phosphatase Cancelled 11/25/23 10:27
Most recent labs reviewed.
Micro Results:
11/24/23 03:24 Influenza Types A & B (MARY) - Final
Nasal Swab Negative for Influenza A & B, NAAT
Negative results must be combined with clinical observations
and patient history.
Nucleic Acid Amplification test (NAAT)performed on the
[employer] NOW platform.
11/18/23 17:54 Blood Culture - Final
Blood/Venous No Growth - Final Report
11/18/23 17:49 Blood Culture - Final
Blood/Venous No Growth - Final Report
11/18/23 16:54 Urine Culture - Final
Urine Escherichia coli
11/18/23 14:18 Influenza Types A & B (MARY) - Final
Nasal Swab Negative for Influenza A & B, NAAT
Negative results must be combined with clinical observations
and patient history.
Nucleic Acid Amplification test (NAAT)performed on the
[employer] NOW platform.
[2023-11-26 17:52] LABS: Urine Albumin Negative (Neg - Trace); Urine Bilirubin Negative (Negative); Urine Character Clear (Clear); Urine Color Yellow; Urine Glucose Negative (Negative); Urine Ketone Negative (Negative); Urine Leukocyte Trace (Negative); Urine Nitrite Negative (Negative); Urine Occult Blood Negative (Negative); Urine Specific Gravity 1.015 (<1.030); Urine Urobilinogen Negative (Neg - 1+)
[2023-11-26 18:06] LABS: Urine Bacteria Few (Negative)
--- NOTE | 2023-11-26 18:34 | PTCARENOTE ---
Patient arrived to room 3349 due to diagnosis of CHF, Sepsis. Patient is awake, alert, oriented to room. Patient denying pain when asked. Vital signs afib 106, bp 100/64, pulse ox on 8 liters is 95%. Call alcaraz within reach. Report to be given to
nightshift team.
[2023-11-26] MEDS: TESSALON PERLES 100 MG PO (21:09)
[2023-11-26] MEDS: NON-FORMULARY ITEM 1 SPRAY NASAL (21:32)
[2023-11-26 22:09] LABS: Glucose - Point of Care 293 mg/dl (70-99)
[2023-11-26] MEDS: DULCOLAX 10 MG PO (22:24)
[2023-11-26] MEDS: LANTUS 0.349999999999999978 UNITS SC (22:25)
--- NOTE | 2023-11-26 22:44 | W.PN.CARDCBS ---
Today's Communication / Plan
-
See above plan
Impression / Plan
-
PCP: VJ Bro
CDY: Jia Blackburn MD
Impression:
Worsening hypoxic respiratory failure and pulmonary edema with increasing O2 requirements
Acute on chronic HFpEF
Increasing leukocytosis, eosinophilia
New atrial fibrillation 11/21/2023; Eliquis started
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
Recent UTI status posttreatment
CAD
urgent CABGx1 KINCAID-LAD (VF/VT arrest) 04/2015
PCI LM and LCx 06/2015
s/p cath with patent KINCAID-LAD and stents, non new occlusive disease 10/22/22
Non-small cell lung cancer status postradiation November 2022 currently on on Carbo/Taxol, Pembrolizumab last received, last dose 10/31
COPD/Emphysema
PVD - fem bypass and [employer] [facility] 2016
CEA B/L 2018
AAA 3.2cm
CDK3a
HTN
HLD
KIM
RBBB
DM2
Former smoker
Echo 10/22/2022�EF 65 to 70%.� Mild MR.� Aortic valve gradients 20/8 mmHg peak/mean consistent with mild aortic valve stenosis.� Trace TR with PA pressure 30 to 35 mmHg
Plan:
Hypoxic respiratory failure with increasing O2 requirements despite diuresis efforts requiring transfer to IMU, etiology likely multifactorial
-New mildly reduced LV ejection fraction and history of heart failure with preserved ejection fraction. Clinically he has worsened despite IV diuretics and improving proBNP
-CT chest abdomen pelvis report reviewed. Extensive bilateral reticulonodular and groundglass opacities suggestive of extensive bilateral pneumonia, atypical for pulmonary edema per radiology. Small to moderate right pleural effusion, left pleural
effusion
-D-dimer elevated; VQ scan pending
-Currently on Eliquis for atrial fibrillation, new this admission. Will defer to primary and pulmonary transition to IV heparin pending VQ scan
-Nephrology consulted and has started high-dose Lasix with consideration for Lasix drip pending response
-Will repeat limited 2D echocardiogram Tuesday to reassess EF now that heart rates are improved
-ID, oncology and pulmonary following
Atrial fibrillation, new this admission noted on 11/21/2023
-Amiodarone initiated 11/21/2023, 200 mg TID
-Continue Lopressor 25 mg twice daily
-New to Eliquis 2.5 mg BID (age 83, Cre 1.7, wt 103 kg). Stopped outpatient dose of aspirin but keep on Plavix given CAD and PAD
-Repeat twelve-lead EKG
-Check TSH
-We discussed DANIEL cardioversion on Tuesday however his pulmonary status precludes procedure/anesthesia at this time
Acute on chronic renal sufficiency with creatinine up to 2
-Nephrology consulted
Known AAA with recent CT chest abdomen pelvis reporting chronic abdominal aortic dissection
-History of abdominal pain now resolved following BM
-Patient known to Dr. Sloan however review of prior studies does not make comment about abdominal aortic dissection.
-Vascular surgery consulted
Coronary artery disease with history of urgent CABG for left main disease and VF/VT arrest in 2014 followed by PCI to left main and circumflex
-No chest pain or pressure
-recent cardiac catheterization September 2022 with patent KINCAID to LAD and stable anatomy
-Repeat 2D echocardiogram with likely low normal LV ejection fraction technically difficult in the setting of rapid atrial fibrillation. EF estimated 45-50%. Mild aortic stenosis with peak/mean gradients 24/15 mmHg. Trace AI. Trace TR.
Estimated pulmonary artery pressure 42 mmHg.
-Will repeat limited repeat study on Tuesday for EF now that heart rates are improved
HPI: He has a complex medical history including VT/VF Cardiac arrest with LM stenosis urgent CABGx1 KINCAID-LAD 04/2015, PCI LM and LCx 06/2015, PAfib, PVD with multiple peripheral interventions including fem bypass, b/l CEA 2018, AAA, HTN, HLD, DM2,
CKD3, RBBB, KIM, COPD/Emphysema and MICHEAL lung CA on chemo/XRT.
Progress Note - Vice President Safety
Subjective
Date of Service: November 26, 2023
Seen and examined in U 3349. Remains short of breath now on 8 L nasal cannula previously on 3 L nasal cannula. No chest pain or pressure. No dizziness. No abdominal pain
Objective
Labs:
11/26/23 09:15
11/26/23 07:45
Labs
Hgb 9.7 g/dL (13.0-18.0) L 11/26/23 09:15
Hct 29.5 % (39.0-52.0) L 11/26/23 09:15
Plt Count 298 10^3/uL (130-400) 11/26/23 09:15
Sodium 132 mmol/L (135-145) L 11/26/23 07:45
Potassium 4.6 mmol/L (3.5-5.1) 11/26/23 07:45
BUN 58 mg/dl (9-20) H 11/26/23 07:45
Creatinine 2.1 mg/dL (0.7-1.3) H 11/26/23 07:45
Glucose 143 mg/dl (70-99) H 11/26/23 07:45
Vital Signs and I&O:
Vital Signs
Temp Pulse Resp BP Pulse Ox
98.8 F 101 21 110/71 96
11/26/23 19:07 11/26/23 22:24 11/26/23 21:00 11/26/23 22:24 11/26/23 21:00
Vital Signs
Temp Pulse Resp BP Pulse Ox
98.8 F 101 21 110/71 96
11/26/23 19:07 11/26/23 22:24 11/26/23 21:00 11/26/23 22:24 11/26/23 21:00
Intake & Output
11/24/23 11/25/23 11/26/23 11/27/23
06:59 06:59 06:59 06:59
Intake Total 1200 / 1200 1500 / 1500 660 / 660
Output Total 50 / 50 400 / 400
Balance 1200 / 1200 1500 / 1500 610 / 610 -400 / -400
Physical Exam
Physical Exam
GEN: AOA x 3, comfortable on 8 L nasal cannula without conversational dyspnea
HEENT: mmm
LUNGS: Bronchovesicular breath sounds with coarse rhonchi bilaterally and crackles
CV: Irreg, S1/S2, 2/6 SM
ABD: soft, distended, nontender, positive bowel sounds
EXT: +1 edema
[2023-11-27] VITALS (22 sets, daily range): BP systolic 102–136; BP diastolic 51–99; BMI 31.4
[2023-11-27] MEDS: SOLU-MEDROL PF 40 MG IV ×3 (00:27→16:23)
[2023-11-27] MEDS: FLUSH (NSS) 2 FLUSH IV (00:27)
[2023-11-27] MEDS: LASIX 80 MG IV ×3 (05:43→22:10)
[2023-11-27 06:06] LABS: % Basophils 0.4 % (0-2); % Immature Granulocytes 0.8 % (0-0.5); % Lymphocytes 6.7 % (20.5-51.1); % Monocytes 1.9 % (1.7-9.3); % Neutrophils 89.2 % (42.2-75.2); Absolute Basophils 0.1 10^3/uL (0-0.2); Absolute Eosinophils 0.1 10^3/uL (0-0.7); Absolute Immature Granulocytes 0.1 10^3/uL (0-0.05); Absolute Monocytes 0.3 10^3/uL (0.1-0.6); Hematocrit 28.9 % (39.0-52.0); Hemoglobin 9.4 g/dL (13.0-18.0); Mean Corp Hgb Conc. 32.5 g/dL (33.0-37.0); Mean Corpuscular Hgb 28.9 pg (27.0-31.0); Mean Corpuscular Volume 88.9 fL (80.0-94.0); Mean Platelet Volume 9.6 fL (7.4-10.4); Nucleated Red Blood Cells % 0 % (-); Platelet Count 264 10^3/uL (130-400); Red Blood Cell Count 3.25 10^6/uL (4.70-6.10); Red Cell Dist. Width 15.2 % (11.5-14.5); White Blood Cell Count 14.5 10^3/uL (4.8-10.8)
--- NOTE | 2023-11-27 06:26 | PTCARENOTE ---
Pt with low temp this am. 93.4 oral. attempted axillary temp with essentially same result. Pt awake alert and oriented. Vital signs as charted. Pt asymptomatic. Warm blankets placed on pt and temp rechecked and was 95 rectal. Alejandro ZABALA notified.
[2023-11-27 06:29] LABS: Blood Urea Nitrogen 60 mg/dl (9-20); Calcium 8.5 mg/dl (8.4-10.2); Carbon Dioxide 27 mmol/L (22-30); Chloride 99 mmol/L (98-107); Estimated Creatinine Clearance 35 ml/min; Glucose 262 mg/dl (70-99); Potassium 4.9 mmol/L (3.5-5.1); Sodium 131 mmol/L (135-145); eGFR 32.71
--- NOTE | 2023-11-27 06:37 | W.PN.UPDATE ---
Update Note
Progress Note Update
RN asked for a Javid hugger for patient as noted low temp of 93.4 orally, 95 via Rectum. Nursing states, patient had the heat down last night and low temp may be due to low temperature in the room, Warm blankets on at present, patient is not in any
distress, Javid hugger order in place.
--- NOTE | 2023-11-27 07:30 | PTCARENOTE ---
Pt hypothermic this AM. Temp 93.5. Javid erica in place.
[2023-11-27] MEDS: DUONEB 3 ML INH ×4 (07:39→20:48)
--- NOTE | 2023-11-27 07:51 | PTOTSP ---
Reviewed chart and noted pt transferred to IMU on 11/25 and PT orders were not continued upon transfer. Will need new orders for PT (and OT) when stable to resume activity.
[2023-11-27] MEDS: MIRALAX 17 GRAMS PO ×2 (08:07→20:13)
[2023-11-27] MEDS: MUCINEX 600 MG PO ×2 (08:07→20:13)
--- NOTE | 2023-11-27 08:07 | CON.VAS ---
Consultation
Consultation Request
Reason for Consultation: ? chronic aortic dissection
Medical History
-
Chief Complaint: SOB
History of Present Illness:
83 yo M followed by vascular for bilateral lower extremity bypasses and a small infrarenal AAA. He last had his bypasses imaged in May 2023. He is admitted with HF and hypoxia, now with fevers, worsening pneumonia, and upgraded to the ICU as a
result. On a non con CT C/A/P there was a read of possible chronic aortic dissection so vascular is consulted. The patient has no abdominal, back or leg pain at this time.
Past Medical History
Past Medical History: Arrhythmias, CAD, CHF, COPD and Renal Failure
Past Surgical History: Cardiac and Other (bilateral lower extremity bypasses)
Family History
Family History: Reviewed & Not Pertinent
Allergies / Home Medications
Allergy/AdvReac Type Severity Reaction Status Date / Time
cephalexin Allergy Mild Rash Verified 11/24/23 15:36
ZACHARY Inhibitors Allergy Shortness Verified 11/18/23 14:11
of
Breath-possible
angioedema-pharm
to review
Iodinated Contrast Media Allergy affected Verified 11/18/23 14:11
[Iodinated Contrast Media - kidneys
Oral and]
sulfamethoxazole Allergy Rash Verified 11/18/23 14:11
[From Bactrim]
trimethoprim [From Bactrim] Allergy Rash Verified 11/18/23 14:11
Medication Instructions Recorded Confirmed Type
aspirin 81 mg tablet,delayed 81 mg PO DAILY@1600 Blood clot 01/22/19 11/18/23 History
release (Adult Low Dose Aspirin) prevention/tx
furosemide 20 mg tablet 20 mg PO BID@0800,1600 Fluid 01/22/19 11/18/23 History
retention/Swelling
rosuvastatin 40 mg tablet (Crestor) 40 mg PO DAILY@1600 High 01/22/19 11/18/23 History
cholesterol
insulin glargine 100 unit/mL 35 units SC HS Diabetes 03/07/20 11/18/23 History
subcutaneous solution (Lantus
U-100 Insulin)
losartan 100 mg tablet 100 mg PO DAILY@1600 Blood pressure 07/15/22 11/18/23 History
psyllium 1 packet PO QPM Constipation ##0 07/15/22 11/18/23 History
tamsulosin 0.4 mg capsule 0.4 mg PO BID Urinary issue 07/15/22 11/18/23 History
clopidogrel 75 mg tablet (Plavix) 75 mg PO DAILY@1600 Blood clot 10/22/22 11/18/23 History
prevention/tx
Lactobac no.2-Bifidobac no.1-S. 1 cap PO DAILY Supplement 11/17/22 11/18/23 History
thermo 112.5 billion cell capsule
(Visbiome)
glipizide 5 mg tablet, extended 5 mg PO BID@0800,1700 Diabetes 11/17/22 11/18/23 History
release 24 hr
azelastine 137 mcg (0.1 %) nasal 1 spray intranasal BID Congestion 09/14/23 11/18/23 History
spray aerosol
cholecalciferol (vitamin D3) 50 100 mcg PO DAILY Supplement 09/14/23 11/18/23 History
mcg (2,000 unit) tablet (Vitamin
D3)
guaifenesin 600 mg tablet, 600 mg PO BID Congestion 09/14/23 11/18/23 History
extended release 12 hr (Mucinex)
diphenhydramine 25 1 tab PO HS Sleep 10/28/23 11/18/23 History
mg-acetaminophen 500 mg tablet
(Tylenol PM Extra Strength)
acetaminophen 650 mg 650 mg PO Q8H PRN prostate 11/18/23 11/18/23 History
tablet,extended release (Tylenol 8
Hour)
Review of Systems
-
History Source: Patient
All other systems: Negative unless noted
Physical Exam
Vital Signs
Temp Pulse Resp BP Pulse Ox
96.1 F L 101 17 135/82 94
11/27/23 08:00 11/27/23 07:40 11/27/23 07:40 11/27/23 06:00 11/27/23 07:40
Lab Results
11/27/23 05:42
11/27/23 05:42
Wlt-V-Zvjdnjyynbz Pept 3170 pg/ml 11/26/23 07:45
Physical Exam
General: Well Developed
HEENT: Normocephalic
Respiratory: Accessory Resp Muscle Use
Cardiac: Irregular Rhythm
GI: Soft and Non Tender
Skin: Warm and Dry
Neuro: AO x 3
Pulses: Bilateral Femoral: +1
Assessment / Plan
-
83 yo M with worsening pulmonary symptoms and infection, with non contrast CT read of possible chronic dissection
-I reviewed this CT scan and as it is non contrast it is impossible to tell if there is a chronic dissection in his aorta or not. There is some circumferential calcification seen in the aorta with possible laminar thrombus but this is unchanged from
his prior non contrast scans. There are no radiographic findings of an acute dissection. His infrarenal AAA remains small and stable in size. The only way to confirm if he has any sort of dissection would be a CTA C/A/P but this is not necessary
given his current medical issues and uncomplicated nature of his aortic disease presently. He should follow up with us as an outpatient for continued surveillance of his aorta and bypasses.
Data Reviewed
-
CT Scan: Image Personally Visualized and interpreted
Ultrasound: Image Personally Visualized and interpreted
[2023-11-27] MEDS: VITAMIN D3 (cholecalciferol) 100 MCG PO (08:08)
[2023-11-27] MEDS: PACERONE 200 MG PO ×3 (08:08→22:09)
[2023-11-27] MEDS: LOPRESSOR 25 MG PO ×2 (08:08→20:13)
[2023-11-27] MEDS: ELIQUIS 2.5 MG PO ×2 (08:08→20:13)
[2023-11-27] MEDS: TESSALON PERLES 100 MG PO ×2 (08:08→22:09)
[2023-11-27] MEDS: FLOMAX 0.400000000000000022 MG PO ×2 (08:08→20:13)
[2023-11-27] MEDS: NON-FORMULARY ITEM 1 SPRAY NASAL ×2 (08:09→20:13)
--- NOTE | 2023-11-27 08:30 | PTCARENOTE ---
Increases pt to 10L MF NC. O2 sat 89-90%
[2023-11-27] MEDS: NOVOLOG FLEXPEN-LOW RESISTANCE 3 UNITS SC (08:51)
[2023-11-27 08:59] LABS: Glucose - Point of Care 295 mg/dl (70-99)
--- NOTE | 2023-11-27 10:01 | W.PN.ID1 ---
Date of Service
Date of Service: November 27, 2023
Today's Communication
Observe off abx.
See below.
Assessment / Plan
#Hypereosinophilia - AEC 14.2
- Preceded cefdinir, not reaction to abx
-? due to adrenal insufficiency - BP was on the low side
-? drug (non-abx) reaction
-Responsive to steroid -> eosinophilia resolved from 16,800 to 100.
#SCC of lung hx XRT; on Carbo/Taxol, Pembrolizumab last received last dose 10/31
# Acute hypoxemic respiratory failure progressing,
- Significant improved SOB/cough with start of steroid - suggestive of ?Keytruda-associated pneumonitis
- CT bilateral nodular parenchymal opacities
- No abx at this time
#Leukocytosis significant improved on steroid - from 34.2 -> 14.5
# Hypothermic overnight
- Of note received GCSF 11/01/23
- Follow repeat bcx's, UA/Ucx
# KATHARINE on CKD
# New onset Afib
-For cardioversion Tuesday
# s/p UTI treatment
Chief Complaint
-: Leukocytosis and Other (Eosinophilia)
Subjective / Review of Systems
SOB and cough much better since start of steroid.
Vital Signs / Physical Exam
Vital Signs
Vital Signs
Temp Pulse Resp BP Pulse Ox
96.1 F L 92 17 105/62 89
11/27/23 08:00 11/27/23 08:08 11/27/23 07:40 11/27/23 08:08 11/27/23 08:29
Physical Exam
Constitutional: Comfortable, Non-toxic and Obese
Eyes: No Conjunctival Hemorrhage and Sclera Anicteric
Cardiovascular: Regular Rate and S1/S2
Pulmonary: Rales (few rales)
Gastrointestinal: Soft, Non Tender, Non Distended and Normal Bowel Sounds
Genito-Urinary: Negative CVA Tenderness
Extremities: Edema (2+ edema)
Skin: Negative Rash
Neurological: AO x 3
Lines: Port (left chest wall:no erythema)
Objective Data
Lab Data
Lab Results
11/27/23 05:42
11/27/23 05:42
Estimated Creat Clear 35 ml/min 11/27/23 05:42
Lactic Acid 1.1 mmol/L (0.7-2.0) 11/24/23 03:34
Total Bilirubin Cancelled 11/25/23 10:27
AST Cancelled 11/25/23 10:27
ALT Cancelled 11/25/23 10:27
Alkaline Phosphatase Cancelled 11/25/23 10:27
Most recent labs reviewed.
Micro Results:
11/26/23 17:46 Legionella Urinary Antigen - Final
Urine Negative for Legionella pneumophila Serogroup 1 antigen.
A negative result does not rule out the possiblity of
Legionella infection due to other serogroups or species of
Legionella. Clinical correlation is recommended.
Streptococcus pneumoniae Antigen (M - Final
Negative for Streptococcus pneumoniae antigen.
A negative result does not exclude infection with
Streptococcus pneumoniae. Clinical correlation is
recommended.
11/26/23 17:54 Blood Culture - Pending
Blood/Venous
11/26/23 17:57 Blood Culture - Pending
Blood/Venous
11/24/23 03:24 Influenza Types A & B (MARY) - Final
Nasal Swab Negative for Influenza A & B, NAAT
Negative results must be combined with clinical observations
and patient history.
Nucleic Acid Amplification test (NAAT)performed on the
[employer] platform.
11/18/23 17:54 Blood Culture - Final
Blood/Venous No Growth - Final Report
11/18/23 17:49 Blood Culture - Final
Blood/Venous No Growth - Final Report
11/18/23 16:54 Urine Culture - Final
Urine Escherichia coli
11/18/23 14:18 Influenza Types A & B (MARY) - Final
Nasal Swab Negative for Influenza A & B, NAAT
Negative results must be combined with clinical observations
and patient history.
Nucleic Acid Amplification test (NAAT)performed on the
[employer] platform.
11/26/23 CT C/A/P: Fairly extensive parenchymal opacity throughout both lungs, mostly a small nodular pattern, although also having a reticulonodular and groundglass pattern.�Small to moderate right pleural effusion with small left pleural
effusion.Dilation of the abdominal aorta with maximum AP dimension of 3.3 cm. Morphologic appearance of the abdominal aorta compatible with chronic dissection.
--- NOTE | 2023-11-27 11:29 | W.PN.NEPH.PH ---
Today's Communication / Plan
-
diurese
Assessment/Plan
-
Assessment
KATHARINE
CKD 3B
Worsening pulmonary edema
Eosinophilia
Recent sepsis
Hyponatremia
Anemia
Diffuse anasarca
Paroxysmal atrial fibrillation
Non-small cell lung cancer
Hypertension
Coronary artery disease
Plan
-continue to diurese today
-follow BMP
-trend CBC
-pulm eval
-steroids per hematology
-remains high risk situation
-
-
Date of Service: November 27, 2023
CC / HPI / ROS
-
Chief Complaint:
KATHARINE
History of Present Illness:
KATHARINE/Cr stable at 2
Na stable 131
diuresed with IV lasix, edema improving
eosinophilia improved?, WBC improving
remains on high O2 requirements
Review of Systems:
SOB
no CP
Labs
-
Labs:
WBC 14.5 10^3/uL (4.8-10.8) H 11/27/23 05:42
RBC 3.25 10^6/uL (4.70-6.10) L 11/27/23 05:42
Hgb 9.4 g/dL (13.0-18.0) L 11/27/23 05:42
Hct 28.9 % (39.0-52.0) L 11/27/23 05:42
Plt Count 264 10^3/uL (130-400) 11/27/23 05:42
Sodium 131 mmol/L (135-145) L 11/27/23 05:42
Potassium 4.9 mmol/L (3.5-5.1) 11/27/23 05:42
Chloride 99 mmol/L (98-107) 11/27/23 05:42
Carbon Dioxide 27 mmol/L (22-30) 11/27/23 05:42
BUN 60 mg/dl (9-20) H 11/27/23 05:42
Creatinine 2.0 mg/dL (0.7-1.3) H 11/27/23 05:42
eGFR 32.71 11/27/23 05:42
Glucose 262 mg/dl (70-99) H 11/27/23 05:42
Calcium 8.5 mg/dl (8.4-10.2) 11/27/23 05:42
Ldg-S-Wdcsmpdctbe Pept 3170 pg/ml 11/26/23 07:45
Albumin Cancelled 11/25/23 10:27
Physical Exam
-
Vital Signs:
Vital Signs
Temp Pulse Resp BP Pulse Ox
97.1 F 96 11 103/51 94
11/27/23 09:00 11/27/23 10:00 11/27/23 10:00 11/27/23 10:00 11/27/23 11:16
Cardiovascular:: Regular rate and rhythm
Respiratory:: Bilateral: Coarse and Bilateral: Rhonchi
Lung Excursion:: Normal
Abdomen:: Nontender and Soft
Bowel Sounds:: Normal
Extremity Edema:: +2: Bilateral:
[2023-11-27 12:38] LABS: Glucose - Point of Care 361 mg/dl (70-99)
--- NOTE | 2023-11-27 12:52 | W.PN.HOSP.TC ---
Today's Communication/Plan
-
IV steroids
bowel regimen
Wean o2
IV lasix
Pulm recs
Assessment / Plan
Assessment / Plan
Physical Exam
General: chronically ill looking but not toxic appearing
HEENT: Moist mucous membranes and
Respiratory: +rales, . oxygen 9L midflow now
Cardiac: S1/S2 irregular irregular, Right upper chest port: not tender or redness in the area
GI: Soft, obese, non tender, +bs
Musculoskeletal: B/L LE edema with erythema with mild improvement
Neuro: AO x 3, followed commands.
Psych: Calm; No agitation.
83 years old male presented with weakness, weight gain and fever for 1 day duration
Assessment and plan
# Sepsis POA ( fever, tachycardia, leukocytosis) due to E Coli complicated UTI
#Leukocytosis likely 2/2 above and G-CSF agents and ?due to malignancy vs. severe constipation
#HyperEosinophilia
No recurrent fever. No more dysuria. Dry cough. No diarrhea. No body rash.
No gastrointestinal symptoms.
Blood culture no growth
Urine with E Coli
s/p Meropenem and Cefdinir was stopped 11/25 as completed course of abx. Monitor off antibiotics.
High WBC c/w recent G-CSF he received in October.
COVID test is negative.� Negative lactic acid.
Check LE doppler negative.
Started on steroids
Multiple BM on 11/25.
WBC downtrended.
ID following
#Adynamic Ileus
No nausea or vomiting.
Denies abdominal pain or distention
No hiccups
Tolerating diet. MiraLAX started. Will add dulcolax
Enema ordered with good results
# Acute on chronic heart failure with preserved ejection fraction
losartan stopped due to hypotension
Lasix uptitrated to 80mg TID. May need lasix gtt
ECHO EF 45-50%. Mild .
O2 requirement uptrending
nephro for input with elevated cr and diuretics management
Appreciate cardiology input
#Acute hypoxic respiratory failure likely 2/2 AECHF vs. Keytruda associated pneumonitis
see plan above
Lasix management nephrology
Wean oxygen as tolerated
Started on IV steroids
CT chest noted discussed with pulmonary
Pulmonary will follow
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
bump in cr likely 2/2 diuretics and hypotension due to afib
bladder scan protocol.
Trend cr. remains hypervolemia.
Creatinine 2 . Will continue to monitor.
Nephrology eval.
#Hyponatremia ?due to overdiuresis
improving.
#Chronic aortic aneurysm
-CT abd/pelvis wtih aortic dissection
-Evaluated by vascular surgery -seems chronic
-follows Dr. Sloan
#Paroxysmal atrial fibrillation with intermittent RVR
Started on amiodarone and now low dose lopressor.
Soft BP is limiting factor for aggressive rate control
Started on Eliquis
# Anemia
likely of chronic disease and chemotherapy related
monitor daily
monitor closely as started on Eliquis.
# Hx of lung cancer
follows with Dr Shin, Office was notified.
Receiving Chemo and G-CSF agents.
Onc eval.
# History of BPH and obstruction.� Monitor for urinary retention.� Ordered a bladder scan
# History of coronary artery disease.� No chest pain. ASA stopped. Plavix continued. started on lopressor.
#Primary hypertension-now with hypotension. losartan stopped. BP improving
#Diabetes mellitus
Poorly controlled. HGB A1C 8.1 but with ongoing chemo Tx.
Cont lantus 35u
Swtich to moderate ISS
Hyperglycemia due to steroids.
# PVD and carotid artery disease.
DVT ppx-on eliquis now
Full code
Anticipated Discharge: > 48 hours
Subjective/Interval History
-
Date of Service: November 27, 2023
Had multiple bowel movements yesterday
states breathing has improved
states passing increasing amount of urine
on Midflow 8-9L
Objective Data
-
Labs:
Laboratory Results
11/27/23
05:42
WBC 14.5 H
Hgb 9.4 L
Hct 28.9 L
Plt Count 264
Sodium 131 L
Potassium 4.9
Chloride 99
Carbon Dioxide 27
BUN 60 H
Creatinine 2.0 H
Glucose 262 H
Calcium 8.5
Vital Signs:
Vital Signs
Temp Pulse Resp BP Pulse Ox
97.5 F 97 22 103/51 94
11/27/23 12:20 11/27/23 12:29 11/27/23 12:29 11/27/23 10:00 11/27/23 11:16
I&O
11/26/23 11/27/23 11/28/23
06:59 06:59 06:59
Intake Total 660 / 660 200 / 200
Output Total 50 / 50 2024 520 / 520
Balance 610 / 610 -1825 / -1825 -520 / -520
Data Reviewed
-
Total Time Spent with Patient (in minutes): 55
[2023-11-27] MEDS: NOVOLOG FLEXPEN-LOW RESISTANCE 5 UNITS SC (13:18)
[2023-11-27] MEDS: CRESTOR 40 MG PO (16:23)
[2023-11-27] MEDS: PLAVIX 75 MG PO (16:23)
[2023-11-27] MEDS: METAMUCIL, KONSYL 1 PACKET PO (16:24)
--- NOTE | 2023-11-27 16:36 | W.PN.ONC2 ---
Today's Communication / Plan
-
O2 requirement seems too high for pt to undergo bronch although will defer to Pulmonary.
Consider empiric coverage for atypical/opportunistic.
Await improvement in O2 requirement on steroid initiated 3/2 PM.
Impression
Impression
Non-small cell lung cancer, disease progression in lung and hilar node s/p radiation (11/2022)
Chemotherapy: Carbo/Taxol, Pembrolizumab last received 10/31/23 (first treatment)
Leukocytosis (s/p GCS-F Rolvedon 11/01/23)
Hypoxic respiratory failure
Shortness of breath
Acute on chronic heart failure
Volume overload
Atrial fibrillation, new
Lower extremity edema
Fevers (resolved)
Hypotension
Plan
Plan
I am concerned about the increasing oxygen requirement noted in this patient. When I saw him on Tuesday, O2 requirement was 2 L and now it is 10L by mid flow.
Personally reviewed 11/26/23 CT scan in comparison with 09/15/23 scan. He did not start treatment until early October so if progression, could have occurred before he started treatment.
Dramatic increase in O2 requirement since admission suggestive of process other than disease progression. He has only had once fransisco of carbo/taxol/keytruda, would anticipate checkpoint inhibitor pneumonitis to occur further along in treatment
course, same for taxane pneumonitis.
Case d/w ID, they will consider abx if O2 requirement unchanged tomorrow
D/w pulmonary who will resume following pt.
For now, await improvement on steroid initiated 3/2 PM.
Subjective/Objective
Chief Complaint
Non-small cell lung cancer
Subjective
Feeling better with initiation of steroids although O2 requirement no better.
Vital Signs:
Vital Signs
Temp Pulse Resp BP Pulse Ox
97.3 F 100 15 112/59 93
11/27/23 15:23 11/27/23 16:23 11/27/23 15:37 11/27/23 16:23 11/27/23 15:37
Lab Results:
Laboratory Data
WBC 14.5 10^3/uL (4.8-10.8) H 11/27/23 05:42
Hgb 9.4 g/dL (13.0-18.0) L 11/27/23 05:42
Plt Count 264 10^3/uL (130-400) 11/27/23 05:42
eGFR 32.71 11/27/23 05:42
CT C/A/P3/2, compared with 09/15/23 scan: MICHEAL mass increased now 8.7 cm. Extensive patchy nodular opacity b/l upper lobs new from prior CT. Airspace opacities within LLL. Nodular opacities RLL. Appearance suggestive of b/l pna. Progressive since
11/18/23 scan. Slightly enlarged subcarinal and precarinal nodes.
Physical Exam
Awake, alert, mildly ill appearing
No wheeze
Review of Systems
Review of Systems
Constitutional: Denies Fever
Orders
Orders
Orders From Last 24 Hours
11/26/23 15:46
NM Lung Quant Diff Perf/vent Routine
11/26/23 16:00
MethylPREDNISolone PF [Solu-Medrol Pf] 40 mg IV Q8
11/26/23 16:32
D-Dimer Routine
[2023-11-27 17:12] LABS: Glucose - Point of Care 325 mg/dl (70-99)
[2023-11-27] MEDS: NOVOLOG FLEXPEN-MODERATE RESISTANCE 7 UNITS SC (17:19)
--- NOTE | 2023-11-27 17:42 | W.PN.PUL3 ---
Today's Communication / Plan
-
Diuresis
Trial of systemic steroids for possible ICI-pneumonitis
Would be careful to ever give Keytruda again to this patient if we are truly saying this is an ICI-pneumonitis
Continue to wean off O2 to maintain SpO2>88%
DuoNebs QID
Consider spiriva (or LAMA equivalent) on discharge with prn albuterol
PT/OT
Walking pulse ox to assess home O2 needs prior to discharge
Pulmonary service will continue to follow along
If O2 needs worsen, start HFNC and consider TRX to ICU.
Assessment
-
Patient is a 83 year old M with complex cardiac history including VT/VF arrest, CAD s/p CABG 04/2015, PCI LM and LCx 06/2015, Afib, PVD with multiple peripheral interventions including fem bypass, b/l CEA 2018, AAA, COPD/Emphysema, squamous cell lung
cancer left upper lobe status post radiation/chemotherapy 10/31/2023, now presents with increased shortness of breath x 5 days, weight gain, lower extremity swelling, fever. We are asked to comment on pulmonary status 11/19, and we are now asked to
comment given his continued high oxygen requirements on 11/27/2023.
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
Suspected acute heart failure
Preserved ejection fraction
Leukocytosis
UTI due to E. coli
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
Status post SBRT - November 2022
Progression via PET in 07/2023 s/p chemoimmunotherapy on 10/31/2023 with Keytruda and carbo/taxol
Conditions present prior to admission
AFib
CAD s/p CABG KINCAID-LAD 04/2015
PCI LM and LCX 06/2015
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
Former smoker
HTN
Hypercholesterolemia
NIDDM
BPH
RBBB
PVD s/p vein stripping, Fem bypass 2019
b/l CEA 2018
Chronic kidney disease
History of aortic aneurysm
�
Plan:
I believe his continues hypoxemic respiratroy failure is multifactorial from acute hypervolemia, pneumonia and ICI-pneumonitis, although that usually occurs ~3 months after receiving keytruda but it is not impossible to occur sooner.
The patient says that when he began to feel SOB, that it felt like when he was in CHF and had pneumonia in the past.
He has a dry cough with occasional phlegm production, and his SOB is better today (11/26).
Continue systemic steroids and wean as tolerated --> currently on Solumedrol 40mg IV q8hr - despite him being net negative last 24 hrs, he is still net (+) >3L since admission.
Continue diuresis - currently on lasix 8-mg IV q8hr
Last dose of Abx was on 11/25/2023 (cefdinir from 11/20 - 11/24; s/p meropenem 11/20 - 11/21; IV vanco x 2 doses from 11/18 - 11/19; also Invanz x1 dose on 11/18
UA suggestive of UTI (E. coli R to cipro and levaquin)
Continue supplemental O2 to keep SpO2>90-94%
Continue Azelestine
Follow blood sugars with goal BG 140-180, laurie while on steroids
Follow-up with Dr. Melgar as previously scheduled
Patient was evaluated and examined on 11/27/2023.
Pulmonary service will continue to follow along.
Diagnostic Data
PFTs 09/02/21: FEV1 2.62L 89%, FVC 4.08L 99%, ratio 64. TLC 6.65L 92%, DLCO 46% (mild obstruction, normal volumes, moderate diffusion impairment)
CT Chest/Abd/Pelvis without contrast 3-2-2024:�
Fairly extensive parenchymal opacity throughout both lungs, mostly a small nodular pattern, although also having a reticulonodular and groundglass pattern. The morphologic appearance is most suggestive of extensive bilateral pneumonia. This could
represent pulmonary edema, but somewhat atypical distribution with some regions of relative sparing. Based on imaging findings alone, this could represent lymphangitic spread of carcinoma, but felt to be unlikely based on its relatively fast
appearance radiographically.
Small to moderate right pleural effusion with small left pleural effusion.
No evidence for acute abnormality within the abdomen or pelvis. There is a small left inguinal hernia, with a portion of the colon protruding into the base of this small hernia, with no evidence for obstruction.
Dilation of the abdominal aorta with maximum AP dimension of 3.3 cm. Morphologic appearance of the abdominal aorta compatible with chronic dissection.
Colonic diverticula with no CT evidence for diverticulitis.
Subjective Data
-
Date of Service:
Date of Service: November 27, 2023
Chief Complaint: Pulmonary Follow Up
Subjective:
Patient was seen and evaluated at bedside. He has remained afebrile since 11/18/2023. Continues on cefdinir. Today he is on mid flow nasal cannula at 8-9 L/min saturating 95%. When I saw the pt he was on 6L/min NC, saying that he felt better
today. SpO2 92%, BP 118/99 and RR 23b/min. He denies CP, VIDAL, abd pain, F/c. He is net (-) 1.8L last 24 hrs.
Review of Systems
General: Other (negative unless mentioned above)
Objective Data
Data Reviewed
Vital Signs / I&O / Oxygen:
Vital Signs
Temp Pulse Resp BP Pulse Ox
97.3 F 100 16 112/59 95
11/27/23 15:23 11/27/23 16:23 11/27/23 16:00 11/27/23 16:23 11/27/23 16:00
Intake and Output
11/26/23 11/27/23 11/28/23
06:59 06:59 06:59
Intake Total 660 / 660 200 / 200
Output Total 50 / 50 2024 520 / 520
Balance 610 / 610 -1825 / -1825 -520 / -520
SaO2 95
Nasal Cannula flow liters per 10
minute
Physical Exam
General: Respiratory Distress (negative), Comfortable and Chills (negative)
HEENT: Normocephalic and Anicteric
Cardiovascular: S1-S2, Murmur (n) and Peripheral Edema (+2 LE pitting edema)
Respiratory: Wheeze (n), Crackles (n), Rhonchi (n), Non-Labored Respirations and Accessory Resp Muscle Use (only during exertional activities)
GI: Soft, Non Distended and Non Tender
Neurology: Awake, Alert and No Motor Deficits
Skin: Warm, Dry, Cyanosis (n), Jaundice (n), Rash (n) and Other (Mild chronic venous stasis changes)
Labs/Micro/Reports
Lab Data
11/27/23 05:42
11/27/23 05:42
Microbiology
11/26/23 17:46 Urine Legionella Urinary Antigen - Final
Negative for Legionella pneumophila Serogroup 1 antigen.
A negative result does not rule out the possiblity of
Legionella infection due to other serogroups or species of
Legionella. Clinical correlation is recommended.
11/26/23 17:46 Urine Streptococcus pneumoniae Antigen (M - Final
Negative for Streptococcus pneumoniae antigen.
A negative result does not exclude infection with
Streptococcus pneumoniae. Clinical correlation is
recommended.
--- NOTE | 2023-11-27 18:03 | PTCARENOTE ---
Rec'd pt this AM. able to wean O2 to 9L MF. OOB to chair and bSC. Large GM today. BS high, insulin given as ordered. vital signs stable. Reports feeling better.
--- NOTE | 2023-11-27 20:54 | W.PN.CARDCBS ---
Today's Communication / Plan
-
Continue IV Lasix with close monitoring of renal function
Repeat limited 2D echocardiogram on Tuesday
Impression / Plan
-
PCP: VJ Bro
CDY: Jia Blackburn MD
Impression:
Worsening hypoxic respiratory failure and pulmonary edema with increasing O2 requirements
Acute on chronic HFpEF
Increasing leukocytosis, eosinophilia
New atrial fibrillation 11/21/2023; Eliquis started
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
Recent UTI status posttreatment
CAD
urgent CABGx1 KINCAID-LAD (VF/VT arrest) 04/2015
PCI LM and LCx 06/2015
s/p cath with patent KINCAID-LAD and stents, non new occlusive disease 10/22/22
Non-small cell lung cancer status postradiation November 2022 currently on on Carbo/Taxol, Pembrolizumab last received, last dose 10/31
COPD/Emphysema
PVD - fem bypass and [employer] 2016
CEA B/L 2018
AAA 3.2cm
CDK3a
HTN
HLD
KIM
RBBB
DM2
Former smoker
Echo 10/22/2022�EF 65 to 70%.� Mild MR.� Aortic valve gradients 20/8 mmHg peak/mean consistent with mild aortic valve stenosis.� Trace TR with PA pressure 30 to 35 mmHg
Plan:
Hypoxic respiratory failure with increasing O2 requirements despite diuresis efforts requiring transfer to IMU 11/25
-He remains on 8 L nasal cannula although clinically feels better with the addition of Solu-Medrol and increase Lasix
-New mildly reduced LV ejection fraction and history of heart failure with preserved ejection fraction. Clinically he has worsened despite improving proBNP
-Continue IV Lasix with close monitoring of renal function
-CT chest abdomen pelvis report reviewed with pulmonary. Extensive bilateral reticulonodular and groundglass opacities suggestive of extensive bilateral pneumonia, atypical for pulmonary edema per radiology. Small to moderate right pleural
effusion, left pleural effusion
-ID recommends no antibiotics at this time
-IV Solu-Medrol started per hematology, concern for Keytruda associated pneumonitis
-D-dimer elevated; VQ scan pending
-Currently on Eliquis for atrial fibrillation, new this admission. Will defer to primary and pulmonary transition to IV heparin pending VQ scan
-Will repeat limited 2D echocardiogram Tuesday to reassess EF now that heart rates are improved
-ID, oncology and pulmonary following
Atrial fibrillation, new this admission noted on 11/21/2023
-Amiodarone initiated 11/21/2023, 200 mg TID
-Continue Lopressor 25 mg twice daily
-New to Eliquis 2.5 mg BID (age 83, Cre 1.7, wt 103 kg). Stopped outpatient dose of aspirin but keep on Plavix given CAD and PAD
-Repeat twelve-lead EKG
-Check TSH
-We discussed DANIEL cardioversion on Tuesday however his pulmonary status precludes procedure/anesthesia at this time
Acute on chronic renal sufficiency
-Creatinine 2
-Nephrology following
Known AAA with recent CT chest abdomen pelvis reporting chronic abdominal aortic dissection
-Appreciate vascular surgery consult: Vascular feels that CT scan limited and recommend outpatient follow-up with Dr. Sloan
Coronary artery disease with history of urgent CABG for left main disease and VF/VT arrest in 2014 followed by PCI to left main and circumflex
-No chest pain or pressure
-recent cardiac catheterization September 2022 with patent KINCAID to LAD and stable anatomy
-Repeat 2D echocardiogram with likely low normal LV ejection fraction technically difficult in the setting of rapid atrial fibrillation. EF estimated 45-50%. Mild aortic stenosis with peak/mean gradients 24/15 mmHg. Trace AI. Trace TR.
Estimated pulmonary artery pressure 42 mmHg.
-Will repeat limited repeat study on Tuesday for EF now that heart rates are improved
HPI: He has a complex medical history including VT/VF Cardiac arrest with LM stenosis urgent CABGx1 KINCAID-LAD 04/2015, PCI LM and LCx 06/2015, PAfib, PVD with multiple peripheral interventions including fem bypass, b/l CEA 2019, AAA, HTN, HLD, DM2,
CKD3, RBBB, KIM, COPD/Emphysema and MICHEAL lung CA on chemo/XRT.
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
Subjective
Date of Service: November 27, 2023
Seen and examined. No new complaints
Objective
Labs:
11/27/23 05:42
11/27/23 05:42
Labs
Hgb 9.4 g/dL (13.0-18.0) L 11/27/23 05:42
Hct 28.9 % (39.0-52.0) L 11/27/23 05:42
Plt Count 264 10^3/uL (130-400) 11/27/23 05:42
Sodium 131 mmol/L (135-145) L 11/27/23 05:42
Potassium 4.9 mmol/L (3.5-5.1) 11/27/23 05:42
BUN 60 mg/dl (9-20) H 11/27/23 05:42
Creatinine 2.0 mg/dL (0.7-1.3) H 11/27/23 05:42
Glucose 262 mg/dl (70-99) H 11/27/23 05:42
Vital Signs and I&O:
Vital Signs
Temp Pulse Resp BP Pulse Ox
97.5 F 95 16 113/54 92
11/27/23 19:00 11/27/23 20:50 11/27/23 20:50 11/27/23 20:13 11/27/23 20:50
Vital Signs
Temp Pulse Resp BP Pulse Ox
97.5 F 95 16 113/54 92
11/27/23 19:00 11/27/23 20:50 11/27/23 20:50 11/27/23 20:13 11/27/23 20:50
Intake & Output
11/25/23 11/26/23 11/27/2311/27/24
06:59 06:59 06:59 06:59
Intake Total 1500 / 1500 660 / 660 200 / 200
Output Total 50 / 50 2024 520 / 520
Balance 1500 / 1500 610 / 610 -1825 / -1825 -520 / -520
Physical Exam
Physical Exam
GEN: AOA x 3, comfortable on mid flow nasal cannula 8 L
HEENT: mmm
LUNGS: Bronchovesicular breath sounds with coarse rhonchi bilaterally and crackles
CV: Irreg, S1/S2, 2/6 SM
ABD: soft, distended, nontender, positive bowel sounds
EXT: +1 edema
[2023-11-27] MEDS: DULCOLAX 10 MG PO (22:10)
[2023-11-27] MEDS: LANTUS 0.349999999999999978 UNITS SC (22:12)
[2023-11-27 22:29] LABS: Glucose - Point of Care 340 mg/dl (70-99)
[2023-11-28] VITALS (16 sets, daily range): BP systolic 92–144; BP diastolic 54–77; PULSE 95; O2SAT 93
[2023-11-28] MEDS: SOLU-MEDROL PF 40 MG IV ×4 (00:21→23:47)
[2023-11-28 06:20] LABS: % Basophils 0.2 % (0-2); % Immature Granulocytes 1.3 % (0-0.5); % Lymphocytes 4.7 % (20.5-51.1); % Monocytes 3.1 % (1.7-9.3); % Neutrophils 90.7 % (42.2-75.2); Absolute Immature Granulocytes 0.3 10^3/uL (0-0.05); Absolute Monocytes 0.6 10^3/uL (0.1-0.6); Absolute Neutrophils 18.9 10^3/uL (1.4-6.5); Hematocrit 27.1 % (39.0-52.0); Mean Corp Hgb Conc. 33.2 g/dL (33.0-37.0); Mean Corpuscular Hgb 29.3 pg (27.0-31.0); Mean Corpuscular Volume 88.3 fL (80.0-94.0); Mean Platelet Volume 9.7 fL (7.4-10.4); Nucleated Red Blood Cells % 0 % (-); Platelet Count 302 10^3/uL (130-400); Red Blood Cell Count 3.07 10^6/uL (4.70-6.10); Red Cell Dist. Width 15.2 % (11.5-14.5); White Blood Cell Count 20.8 10^3/uL (4.8-10.8)
[2023-11-28] MEDS: LASIX 80 MG IV ×3 (06:36→21:48)
[2023-11-28 06:43] LABS: Blood Urea Nitrogen 72 mg/dl (9-20); Carbon Dioxide 29 mmol/L (22-30); Chloride 95 mmol/L (98-107); Estimated Creatinine Clearance 36 ml/min; Glucose 334 mg/dl (70-99); Potassium 4.7 mmol/L (3.5-5.1); Sodium 133 mmol/L (135-145); eGFR 34.79
[2023-11-28 07:07] LABS: TSH Reflex To Free T4 0.45 uIU/ml (0.47-4.68)
--- NOTE | 2023-11-28 07:24 | W.PN.HOSP.TC ---
Today's Communication/Plan
-
Placed on high-dose ISS scale
Continue to titrate oxygen to need
Lasix 80 mg IV every 8 as per nephrology
Remains on IV steroids taper scheduled per pulmonary/oncology
Assessment / Plan
Assessment / Plan
Physical Exam
General: chronically ill looking but not toxic appearing
HEENT: Moist mucous membranes and
Respiratory: +rales, . oxygen 9L midflow now
Cardiac: S1/S2 irregular irregular, Right upper chest port: not tender or redness in the area
GI: Soft, obese, non tender, +bs
Musculoskeletal: B/L LE edema with erythema with mild improvement
Neuro: AO x 3, followed commands.
Psych: Calm; No agitation.
83 years old male presented with weakness, weight gain and fever for 1 day duration
Assessment and plan
# Sepsis POA ( fever, tachycardia, leukocytosis) due to E Coli complicated UTI
#Leukocytosis likely 2/2 above and G-CSF agents and ?due to malignancy vs. severe constipation
#HyperEosinophilia now resolved
No recurrent fever. No more dysuria. Dry cough. No diarrhea. No body rash.
No gastrointestinal symptoms.
Blood culture no growth
Urine with E Coli
s/p Meropenem and Cefdinir was stopped 11/25 as completed course of abx. Monitor off antibiotics.
High WBC c/w recent G-CSF he received in October.
COVID test is negative.� Negative lactic acid.
Check LE doppler negative.
Started on steroids
Multiple BM on 11/25.
WBC downtrended.
ID following
#Adynamic Ileus
No nausea or vomiting.
Denies abdominal pain or distention
No hiccups
Tolerating diet. MiraLAX started. Will add dulcolax
Enema ordered with good results
# Acute on chronic heart failure with preserved ejection fraction
losartan stopped due to hypotension
Lasix uptitrated to 80mg TID. May need lasix gtt
ECHO EF 45-50%. Mild .
O2 requirement uptrending
nephro for input with elevated cr and diuretics management
Appreciate cardiology input
#Acute hypoxic respiratory failure likely 2/2 AECHF vs. Keytruda associated pneumonitis?
see plan above
Lasix management nephrology
Wean oxygen as tolerated
Started on IV steroids
CT chest noted discussed with pulmonary
Pulmonary will follow
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
bump in cr likely 2/2 diuretics and hypotension due to afib
bladder scan protocol.
Trend cr. remains hypervolemia.
Creatinine 2 . Will continue to monitor.
Nephrology eval.
#Hyponatremia ?due to overdiuresis
improving.
#Chronic aortic aneurysm
-CT abd/pelvis wtih aortic dissection
-Evaluated by vascular surgery -seems chronic
-follows Dr. Sloan
#Paroxysmal atrial fibrillation with intermittent RVR
Started on amiodarone and now low dose lopressor.
Soft BP is limiting factor for aggressive rate control
Started on Eliquis
# Anemia
likely of chronic disease and chemotherapy related
monitor daily
monitor closely as started on Eliquis.
# Hx of lung cancer
follows with Dr Shin, Office was notified.
Receiving Chemo and G-CSF agents.
Onc eval.
# History of BPH and obstruction.� Monitor for urinary retention.� Ordered a bladder scan
# History of coronary artery disease.� No chest pain. ASA stopped. Plavix continued. started on lopressor.
#Primary hypertension-now with hypotension. losartan stopped. BP improving
#Diabetes mellitus
Poorly controlled. HGB A1C 8.1 but with ongoing chemo Tx.
Cont lantus 35u
Swtich to moderate ISS
Hyperglycemia due to steroids. Blood sugar 334 this morning
Will increase to high-dose ISS till can start tapering steroid
# PVD and carotid artery disease.
DVT ppx-on eliquis now
Full code
Anticipated Discharge: 24 - 48 hours
Subjective/Interval History
-
Date of Service: November 28, 2023
Patient seems to be doing somewhat better liter flow oxygen remained stable overnight at 6 L no longer with hypothermia still persisting cough
Objective Data
-
Labs:
Laboratory Results
11/28/23
05:57
WBC 20.8 H
Hgb 9.0 L
Hct 27.1 L
Plt Count 302
Sodium 133 L
Potassium 4.7
Chloride 95 L
Carbon Dioxide 29
BUN 72 H
Creatinine 1.9 H
Glucose 334 H
Calcium 9.0
Vital Signs:
Vital Signs
Temp Pulse Resp BP Pulse Ox
97.5 F 97 18 125/65 93
11/27/23 23:03 11/28/23 06:36 11/27/23 22:00 11/28/23 06:36 11/27/23 22:00
I&O
11/27/23 11/28/23 11/29/23
06:59 06:59 06:59
Intake Total 200 / 200
Output Total 2024 / 2144
Balance -1825 / -1825 -2144 / -2144
Review of Systems
-
History Source: Patient
Respiratory: Reports Cough, Trouble Breathing and Other (6 L of oxygen)
Abdomen/GI: Reports No Symptoms
Physical Exam
-
General: Well Developed
HEENT: Normocephalic
Respiratory: Rales and Crackles
Cardiac: S1/S2
GI: Soft and Nontender
Genito-urinary: No Costovertebral Tender
Musculoskeletal: No Clubbing
Skin: IV Access / Catheter Site (Left upper chest Mediport)
Neuro: Awake and Alert
Psych: Calm
Data Reviewed
-
Total Time Spent with Patient (in minutes): 45
Labs: Labs Reviewed by me (Creatinine stable at 1.9/leukocytosis 20.8/absolute eosinophils now down to 0)
[2023-11-28 07:36] LABS: Free T4 1.36 ng/dl (0.78-2.19)
[2023-11-28] MEDS: DUONEB 3 ML INH ×4 (07:42→19:50)
[2023-11-28] MEDS: MIRALAX 17 GRAMS PO ×2 (08:10→20:31)
[2023-11-28] MEDS: VITAMIN D3 (cholecalciferol) 100 MCG PO (08:11)
[2023-11-28] MEDS: FLOMAX 0.400000000000000022 MG PO ×2 (08:11→20:32)
[2023-11-28] MEDS: ELIQUIS 2.5 MG PO ×2 (08:11→20:33)
[2023-11-28] MEDS: LOPRESSOR 25 MG PO ×2 (08:11→20:33)
[2023-11-28] MEDS: MUCINEX 600 MG PO ×2 (08:11→20:32)
[2023-11-28] MEDS: PACERONE 200 MG PO ×3 (08:11→21:47)
[2023-11-28] MEDS: NON-FORMULARY ITEM 1 SPRAY NASAL ×2 (08:12→20:42)
[2023-11-28] MEDS: NOVOLOG FLEXPEN-HIGH RESISTANCE 10 UNITS SC (08:20)
[2023-11-28 08:29] LABS: Glucose - Point of Care 341 mg/dl (70-99)
--- NOTE | 2023-11-28 09:59 | W.PN.PUL.V3 ---
Today's Communication / Plan
-
Continue attempts at weaning FiO2
Increase activity
No change in methylprednisolone
Continue attempts at diuresis
Assessment
-
Patient is a 83 year old M with complex cardiac history including VT/VF arrest, CAD s/p CABG 04/2015, PCI LM and LCx 06/2015, Afib, PVD with multiple peripheral interventions including fem bypass, b/l CEA 2018, AAA, COPD/Emphysema, squamous cell lung
cancer left upper lobe status post radiation/chemotherapy 10/31/2023, now presents with increased shortness of breath x 5 days, weight gain, lower extremity swelling, fever. We are asked to comment on pulmonary status 11/19, and we are now asked to
comment given his continued high oxygen requirements on 11/27/2023.
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
Suspected acute heart failure
Preserved ejection fraction
Leukocytosis
UTI due to E. coli
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
Status post SBRT - November 2022
Progression via PET in 07/2023 s/p chemoimmunotherapy on 10/31/2023 with Keytruda and carbo/taxol
Conditions present prior to admission
AFib
CAD s/p CABG KINCAID-LAD 04/2015
PCI LM and LCX 06/2015
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
Former smoker
HTN
Hypercholesterolemia
NIDDM
BPH
RBBB
PVD s/p vein stripping, Fem bypass 2019
b/l CEA 2018
Chronic kidney disease
History of aortic aneurysm
�
Plan:
Pulmonary believes his continues hypoxemic respiratory failure is multifactorial from acute hypervolemia, pneumonia and ICI-pneumonitis, although that usually occurs ~3 months after receiving Keytruda but it is not impossible to occur sooner.
Respiratory status still somewhat tenuous-remains on 6 L
Attempt oxygen wean
Methylprednisolone 40 mg IV every 8 hours continues-no change
Nebulizers if needed-currently not bronchospastic
Aspiration precautions
Tessalon pearls as needed
Diuresis as tolerated
Monitor renal function, electrolytes, intake/output, lower extremity edema and weight
Replace electrolytes as needed
Cultures reviewed
Last dose of antibiotics was on 11/25/2023 (cefdinir from 11/20 - 11/24; s/p meropenem 11/20 - 11/21/23; IV vanco x 2 doses from 11/18 - 11/19/23; also Invanz x1 dose on 11/18/23
His urine cultures were suggestive of UTI (E. coli R to cipro and levaquin)
Monitor blood sugar
Insulin supplementation as needed
DVT prophylaxis-on Eliquis
Follow-up with Dr. Melgar as previously scheduled
Diagnostic Data
PFTs 09/02/21: FEV1 2.62L 89%, FVC 4.08L 99%, ratio 64. TLC 6.65L 92%, DLCO 46% (mild obstruction, normal volumes, moderate diffusion impairment)
CT Chest/Abd/Pelvis without contrast 11-26-2023:�
Fairly extensive parenchymal opacity throughout both lungs, mostly a small nodular pattern, although also having a reticulonodular and groundglass pattern. The morphologic appearance is most suggestive of extensive bilateral pneumonia. This could
represent pulmonary edema, but somewhat atypical distribution with some regions of relative sparing. Based on imaging findings alone, this could represent lymphangitic spread of carcinoma, but felt to be unlikely based on its relatively fast
appearance radiographically.
Small to moderate right pleural effusion with small left pleural effusion.
No evidence for acute abnormality within the abdomen or pelvis. There is a small left inguinal hernia, with a portion of the colon protruding into the base of this small hernia, with no evidence for obstruction.
Dilation of the abdominal aorta with maximum AP dimension of 3.3 cm. Morphologic appearance of the abdominal aorta compatible with chronic dissection.
Colonic diverticula with no CT evidence for diverticulitis.
Subjective Data
-
Date of Service:
Date of Service: November 28, 2023
Chief Complaint: Pulmonary Follow Up and Dyspnea Follow Up
Subjective:
Feels slightly better, still short of breath, still has a nonproductive cough, no chest pain or abdominal pain or increased lower extremity swelling
Review of Systems
General: Other (Per HPI)
Objective Data
Data Reviewed
Vital Signs / I&O:
Vital Signs
Temp Pulse Resp BP Pulse Ox
97.6 F 100 16 125/65 94
11/28/23 08:00 11/28/23 07:45 11/28/23 07:45 11/28/23 06:36 11/28/23 07:45
Intake and Output
11/27/23 11/28/23 11/29/23
06:59 06:59 06:59
Intake Total 200 / 200 200 / 200
Output Total 2024 / 2024 2145 / 2145 350 / 350
Balance -1825 / -1825 -1945 / -1945 -350 / -350
SaO2: 94
Nasal Cannula flow liters per minute: 7
Physical Exam
General: Respiratory Distress (negative), Comfortable and Chills (negative)
HEENT: Normocephalic and Anicteric
Cardiovascular: Regular Rhythm, Murmur (n) and Peripheral Edema (+2 LE pitting edema)
Respiratory: Wheeze (n), Crackles (n), Rhonchi (n), Non-Labored Respirations and Accessory Resp Muscle Use (only during exertional activities)
GI: Soft, Non Distended and Non Tender
Neurology: Awake, Alert and No Motor Deficits
Skin: Warm, Good Color, Cyanosis (n), Jaundice (n), Rash (n) and Other (Mild chronic venous stasis changes)
Labs/Micro/Reports
Lab Data
11/28/23 05:57
11/28/23 05:57
Microbiology
11/26/23 17:54 Blood/Venous Blood Culture - Preliminary
No Growth in 24 hours- Final report to follow
11/26/23 17:57 Blood/Venous Blood Culture - Preliminary
No Growth in 24 hours- Final report to follow
11/26/23 17:46 Urine Legionella Urinary Antigen - Final
Negative for Legionella pneumophila Serogroup 1 antigen.
A negative result does not rule out the possiblity of
Legionella infection due to other serogroups or species of
Legionella. Clinical correlation is recommended.
11/26/23 17:46 Urine Streptococcus pneumoniae Antigen (M - Final
Negative for Streptococcus pneumoniae antigen.
A negative result does not exclude infection with
Streptococcus pneumoniae. Clinical correlation is
recommended.
--- NOTE | 2023-11-28 10:23 | W.PN.ID1 ---
Date of Service
Date of Service: November 28, 2023
Today's Communication
repeat UA as ongoing dysuria - last UA 3/2 negative
O2 requirements improving, reports cough is nonproductive
observe off of antibiotics at this time
Assessment / Plan
#Hypereosinophilia - resolved
# SCC of lung hx XRT; on Carbo/Taxol, Pembrolizumab last received last dose 10/31
# Acute hypoxemic respiratory failure - improving
- O2 requirements declined from peak of 10L to 7L
- eosinophilia responsive to steroid
- Significant improved SOB/cough with start of steroid - suggestive of ?Keytruda-associated pneumonitis
- CT bilateral nodular parenchymal opacities
- No abx at this time
#Leukocytosis - increased today - however steroids can also cause leukocytosis
# Hypothermia - resolved
- repeat blood cultures no growth to date
- UA negative 2, will repeat today as dysuria ongoing
- sputum culture if able to produce one
# KATHARINE on CKD - improving
# s/p UTI treatment
Chief Complaint
-: Leukocytosis and Other (Eosinophilia)
Subjective / Review of Systems
no further hypothermia
bp stable
O2 requirements declined from peak of 10L to 7L
increase in leukocytosis and L shift - but is on high dose steroids
UA 3/2 negative - did not reflex to culture
hyperglycemic
3/2 blood cultures no growth to date
Vital Signs / Physical Exam
Vital Signs
Vital Signs
Temp Pulse Resp BP Pulse Ox
97.6 F 100 16 125/65 94
11/28/23 08:00 11/28/23 07:45 11/28/23 07:45 11/28/23 06:36 11/28/23 09:59
Physical Exam
Constitutional: No Acute Distress and Chronically Ill
Cardiovascular: Regular Rate and S1/S2; Negative Murmur or Rub
Pulmonary: Symmetric, Coarse and Non Labored; Negative Wheezes or Rales
Gastrointestinal: Soft, Non Tender, Non Distended and Normal Bowel Sounds
Genito-Urinary: Negative Suprapubic Tenderness
Skin: Warm and Dry; Negative Rash or Jaundice
Neurological: Awake
Objective Data
Lab Data
Lab Results
11/28/23 05:57
11/28/23 05:57
Estimated Creat Clear 36 ml/min 11/28/23 05:57
Lactic Acid 1.1 mmol/L (0.7-2.0) 11/24/23 03:34
Total Bilirubin Cancelled 11/25/23 10:27
AST Cancelled 11/25/23 10:27
ALT Cancelled 11/25/23 10:27
Alkaline Phosphatase Cancelled 11/25/23 10:27
Most recent labs reviewed.
Micro Results:
11/26/23 17:54 Blood Culture - Preliminary
Blood/Venous No Growth in 24 hours- Final report to follow
11/26/23 17:57 Blood Culture - Preliminary
Blood/Venous No Growth in 24 hours- Final report to follow
11/26/23 17:46 Legionella Urinary Antigen - Final
Urine Negative for Legionella pneumophila Serogroup 1 antigen.
A negative result does not rule out the possiblity of
Legionella infection due to other serogroups or species of
Legionella. Clinical correlation is recommended.
Streptococcus pneumoniae Antigen (M - Final
Negative for Streptococcus pneumoniae antigen.
A negative result does not exclude infection with
Streptococcus pneumoniae. Clinical correlation is
recommended.
11/24/23 03:24 Influenza Types A & B (MARY) - Final
Nasal Swab Negative for Influenza A & B, NAAT
Negative results must be combined with clinical observations
and patient history.
Nucleic Acid Amplification test (NAAT)performed on the
[email or web address] platform.
11/18/23 17:54 Blood Culture - Final
Blood/Venous No Growth - Final Report
11/18/23 17:49 Blood Culture - Final
Blood/Venous No Growth - Final Report
11/18/23 16:54 Urine Culture - Final
Urine Escherichia coli
11/18/23 14:18 Influenza Types A & B (MARY) - Final
Nasal Swab Negative for Influenza A & B, NAAT
Negative results must be combined with clinical observations
and patient history.
Nucleic Acid Amplification test (NAAT)performed on the
[employer] platform.
11/26/23 CT C/A/P: Fairly extensive parenchymal opacity throughout both lungs, mostly a small nodular pattern, although also having a reticulonodular and groundglass pattern.�Small to moderate right pleural effusion with small left pleural
effusion.Dilation of the abdominal aorta with maximum AP dimension of 3.3 cm. Morphologic appearance of the abdominal aorta compatible with chronic dissection.
Care Review
Plan reviewed with: Physician (Dr Carter)
--- NOTE | 2023-11-28 11:45 | W.PN.CARDCBS ---
Today's Communication / Plan
-
-He remains on 7 L nasal cannula although feels improved with Solu-Medrol and increase Lasix
-Continue IV Lasix diuresis and monitor renal function. Creatinine stable at 1.9 on November 28, 2023. New mildly reduced LV ejection fraction and history of heart failure with preserved ejection fraction. Respiratory status had worsened despite
improving proBNP
-CT chest abdomen pelvis: Extensive bilateral reticulonodular and groundglass opacities suggestive of extensive bilateral pneumonia, atypical for pulmonary edema per radiology. Small to moderate right pleural effusion, left pleural effusion
-Continue IV Solu-Medrol started per hematology, concern for Keytruda associated pneumonitis
-Currently on Eliquis for atrial fibrillation, new this admission.
-Limited 2D echo pending to reassess EF now that heart rates are improved.
Atrial fibrillation, new this admission noted on 11/21/2023
-Amiodarone initiated 11/21/2023, 200 mg TID
-Continue Lopressor 25 mg twice daily
-New to Eliquis 2.5 mg BID (age 83, Cre 1.7, wt 103 kg). Stopped outpatient dose of aspirin but kept on Plavix given CAD and PAD
-Continue rate control strategy at this time given pulmonary status.
-TSH 0.45 borderline. Defer further eval TFTs to primary service.
Impression / Plan
-
.
PCP: VJ Bro
CDY: Jia Blackburn MD
Impression:
Worsening hypoxic respiratory failure and pulmonary edema with increasing O2 requirements
Acute on chronic HFpEF
Increasing leukocytosis, eosinophilia
New atrial fibrillation 11/21/2023; Eliquis started
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
Recent UTI status posttreatment
CAD
urgent CABGx1 KINCAID-LAD (VF/VT arrest) 04/2015
PCI LM and LCx 06/2015
s/p cath with patent KINCAID-LAD and stents, non new occlusive disease 10/22/22
Non-small cell lung cancer status postradiation November 2022 currently on on Carbo/Taxol, Pembrolizumab last received, last dose 10/31
COPD/Emphysema
PVD - fem bypass and [facility] 2016
CEA B/L 2018
AAA 3.2cm
CDK3a
HTN
HLD
KIM
RBBB
DM2
Former smoker
Echo 10/22/2022�EF 65 to 70%.� Mild MR.� Aortic valve gradients 20/8 mmHg peak/mean consistent with mild aortic valve stenosis.� Trace TR with PA pressure 30 to 35 mmHg
Plan:
wt down and Is and Os negative over 1700 cc. cr stable at 1.9
Remains afib
Hypoxic respiratory failure with increased O2 requirements despite diuresis efforts required transfer to IMU 11/25
-He remains on 7 L nasal cannula although feels improved with Solu-Medrol and increase Lasix
-Continue IV Lasix diuresis and monitor renal function. Creatinine stable at 1.9 on November 28, 2023. New mildly reduced LV ejection fraction and history of heart failure with preserved ejection fraction. Respiratory status had worsened despite
improving proBNP
-CT chest abdomen pelvis: Extensive bilateral reticulonodular and groundglass opacities suggestive of extensive bilateral pneumonia, atypical for pulmonary edema per radiology. Small to moderate right pleural effusion, left pleural effusion
-ID following and recommends no antibiotics at this time
-Continue IV Solu-Medrol started per hematology, concern for Keytruda associated pneumonitis
-Currently on Eliquis for atrial fibrillation, new this admission.
-Limited 2D echo pending to reassess EF now that heart rates are improved.
-ID, oncology and pulmonary following
Atrial fibrillation, new this admission noted on 11/21/2023
-Amiodarone initiated 11/21/2023, 200 mg TID
-Continue Lopressor 25 mg twice daily
-New to Eliquis 2.5 mg BID (age 83, Cre 1.7, wt 103 kg). Stopped outpatient dose of aspirin but kept on Plavix given CAD and PAD
-Continue rate control strategy at this time given pulmonary status.
-TSH 0.45 borderline. Defer further eval TFTs to primary service.
Acute on chronic renal sufficiency
-Creatinine 1.9
-Nephrology following
Known AAA with recent CT chest abdomen pelvis reporting chronic abdominal aortic dissection
-Appreciate vascular surgery consult: Vascular feels that CT scan limited and recommend outpatient follow-up with Dr. Sloan
Coronary artery disease with history of urgent CABG for left main disease and VF/VT arrest in 2014 followed by PCI to left main and circumflex
-recent cardiac catheterization September 2022 with patent KINCAID to LAD and stable anatomy
-Repeat 2D echocardiogram with likely low normal LV ejection fraction technically difficult in the setting of rapid atrial fibrillation. EF estimated 45-50%. Mild aortic stenosis with peak/mean gradients 24/15 mmHg. Trace AI. Trace TR.
Estimated pulmonary artery pressure 42 mmHg. Echo repeat aravind reeval EF now that HR improved.
HPI: He has a complex medical history including VT/VF Cardiac arrest with LM stenosis urgent CABGx1 KINCAID-LAD 04/2015, PCI LM and LCx 06/2015, PAfib, PVD with multiple peripheral interventions including fem bypass, b/l CEA 2018, AAA, HTN, HLD, DM2,
CKD3, RBBB, KIM, COPD/Emphysema and MICHEAL lung CA on chemo/XRT.
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
Subjective
Date of Service: November 28, 2023
Patient seen and examined. No chest pain. Breathing slightly improved.
Objective
Labs:
11/28/23 05:57
11/28/23 05:57
Labs
Hgb 9.0 g/dL (13.0-18.0) L 11/28/23 05:57
Hct 27.1 % (39.0-52.0) L 11/28/23 05:57
Plt Count 302 10^3/uL (130-400) 11/28/23 05:57
Sodium 133 mmol/L (135-145) L 11/28/23 05:57
Potassium 4.7 mmol/L (3.5-5.1) 11/28/23 05:57
BUN 72 mg/dl (9-20) H 11/28/23 05:57
Creatinine 1.9 mg/dL (0.7-1.3) H 11/28/23 05:57
Glucose 334 mg/dl (70-99) H 11/28/23 05:57
Vital Signs and I&O:
Vital Signs
Temp Pulse Resp BP Pulse Ox
97.5 F 114 16 118/77 96
11/28/23 11:41 11/28/23 10:00 11/28/23 10:00 11/28/23 10:00 11/28/23 11:39
Vital Signs
Temp Pulse Resp BP Pulse Ox
97.5 F 114 16 118/77 96
11/28/23 11:41 11/28/23 10:00 11/28/23 10:00 11/28/23 10:00 11/28/23 11:39
Intake & Output
11/26/23 11/27/23 11/28/23 11/29/23
06:59 06:59 06:59 06:59
Intake Total 660 / 660 200 / 200 200 / 200
Output Total 50 / 50 2024 / 2024 2145 / 2145 350 / 350
Balance 610 / 610 -1825 / -1825 -1945 / -1945 -350 / -350
Physical Exam
Physical Exam
General: No acute distress, AAOX3
Neck: Negative JVD
Heart: Irregular irregular, Negative S3 positive S1/S2, Negative S4, No murmur
Lungs: CTA b/l, negative wheezes/rales/rhonchi
Abd: Positive BS, NT/ND, neg rebound/rigidity/guarding
Ext: Negative cyanosis/clubbing/edema
Neuro: nonfocal
[2023-11-28 12:08] LABS: Glucose - Point of Care 372 mg/dl (70-99)
[2023-11-28] MEDS: NOVOLOG FLEXPEN-HIGH RESISTANCE 12 UNITS SC (12:22)
[2023-11-28] MEDS: NOVOLOG FLEXPEN-MODERATE RESISTANCE SC (13:21)
[2023-11-28] MEDS: TESSALON PERLES 100 MG PO ×2 (14:06→23:47)
--- NOTE | 2023-11-28 14:43 | CM ---
CM met with pt per his request
He is concerned this his bills won't be paid timely while in the hospital
Notes his spouse is not able to help with paying bills
Encouraged him to have spouse bring in bills and check book if he does not feel comfortable paying over phone or online
Of note, pt remains in IMU on
New therapy orders requested due to IMU transfer
Discharge Disposition- home, follow for VN and O2 needs
--- NOTE | 2023-11-28 14:54 | W.PN.NEPH.PH ---
Today's Communication / Plan
-
- continue aggressive diuresis
Assessment/Plan
-
Assessment
KATHARINE
CKD 3B
Worsening pulmonary edema
Eosinophilia
Recent sepsis
Hyponatremia
Anemia
Diffuse anasarca
Paroxysmal atrial fibrillation
Non-small cell lung cancer
Hypertension
Coronary artery disease
Plan
-continue to diurese today with lasix 80mg IV TID
-follow BMP, Cr stable at 1.9. bl 1.4-1.8
-trend CBC
-pulm stated that hypoxemic resp failure is likely multifactorial. continue with methylpred 40mg IV q8h
-excellent UOP at 1.9L plus unmeasured urine
-Na improving with diuresis as well
-remains high risk situation
-
-
Date of Service: November 28, 2023
CC / HPI / ROS
-
Chief Complaint:
KATHARINE
History of Present Illness:
KATHARINE/Cr stable at 1.9
Na stable 133
diuresed with IV lasix, edema improving
eosinophilia improved?, WBC improving
remains on high O2 requirements
Review of Systems:
SOB
no CP
Labs
-
Labs:
WBC 20.8 10^3/uL (4.8-10.8) H 11/28/23 05:57
RBC 3.07 10^6/uL (4.70-6.10) L 11/28/23 05:57
Hgb 9.0 g/dL (13.0-18.0) L 11/28/23 05:57
Hct 27.1 % (39.0-52.0) L 11/28/23 05:57
Plt Count 302 10^3/uL (130-400) 11/28/23 05:57
Sodium 133 mmol/L (135-145) L 11/28/23 05:57
Potassium 4.7 mmol/L (3.5-5.1) 11/28/23 05:57
Chloride 95 mmol/L (98-107) L 11/28/23 05:57
Carbon Dioxide 29 mmol/L (22-30) 11/28/23 05:57
BUN 72 mg/dl (9-20) H 11/28/23 05:57
Creatinine 1.9 mg/dL (0.7-1.3) H 11/28/23 05:57
eGFR 34.79 11/28/23 05:57
Glucose 334 mg/dl (70-99) H 11/28/23 05:57
Calcium 9.0 mg/dl (8.4-10.2) 11/28/23 05:57
Hnz-Z-Xjenwugkwdc Pept 3170 pg/ml 11/26/23 07:45
Albumin Cancelled 11/25/23 10:27
Physical Exam
-
Vital Signs:
Vital Signs
Temp Pulse Resp BP Pulse Ox
97.5 F 114 16 118/77 96
11/28/23 11:41 11/28/23 10:00 11/28/23 10:00 11/28/23 10:00 11/28/23 11:39
Cardiovascular:: Regular rate and rhythm
Respiratory:: Bilateral: Coarse
Lung Excursion:: Normal
Abdomen:: Nontender, Soft and Tender
Bowel Sounds:: Normal
Extremity Edema:: +3: Bilateral:
Sloan Catheter: No
[2023-11-28] MEDS: PLAVIX 75 MG PO (15:56)
[2023-11-28] MEDS: CRESTOR 40 MG PO (15:56)
[2023-11-28] MEDS: NOVOLOG FLEXPEN-HIGH RESISTANCE 7 UNITS SC (17:09)
[2023-11-28 17:21] LABS: Glucose - Point of Care 261 mg/dl (70-99)
--- NOTE | 2023-11-28 19:29 | W.PN.ONC2 ---
Today's Communication / Plan
-
Await further improvement on steroid.
Impression
Impression
Non-small cell lung cancer, disease progression in lung and hilar node s/p radiation (11/2022)
Chemotherapy: Carbo/Taxol, Pembrolizumab last received 10/31/23 (first treatment)
Leukocytosis (s/p GCS-F Rolvedon 11/01/23)
Hypoxic respiratory failure
Shortness of breath
Acute on chronic heart failure
Volume overload
Atrial fibrillation, new
Lower extremity edema
Fevers (resolved)
Hypotension
Plan
Plan
Personally reviewed 11/26/23 CT scan in comparison with 09/15/23 scan. He did not start treatment until early October so if progression, could have occurred before he started treatment.
Dramatic increase in O2 requirement between admissiona and 11/25 suggestive of process other than disease progression. He has only had once fransisco of carbo/taxol/keytruda, would anticipate checkpoint inhibitor pneumonitis to occur further along in
treatment course, same for taxane pneumonitis. But he is improving on steroid.
ID and Pulmonary following.
Await improvement on steroid initiated 32 PM.
Subjective/Objective
Chief Complaint
Lung cancer, hypoxic respiratory failure
Subjective
Pt breathing more comfortably today with improvement in O2 requirement although still on 6L.
Vital Signs:
Vital Signs
Temp Pulse Resp BP Pulse Ox
98.1 F 94 15 118/77 97
11/28/23 16:11 11/28/23 16:10 11/28/23 16:10 11/28/23 10:00 11/28/23 16:10
Lab Results:
Laboratory Data
WBC 20.8 10^3/uL (4.8-10.8) H 11/28/23 05:57
Hgb 9.0 g/dL (13.0-18.0) L 11/28/23 05:57
Plt Count 302 10^3/uL (130-400) 11/28/23 05:57
eGFR 34.79 11/28/23 05:57
[2023-11-28] MEDS: METAMUCIL, KONSYL 1 PACKET PO (20:31)
[2023-11-28] MEDS: DULCOLAX 10 MG PO (20:33)
[2023-11-28 21:20] LABS: Glucose - Point of Care 337 mg/dl (70-99)
[2023-11-28] MEDS: NOVOLOG FLEXPEN 12 UNITS SC ×2 (21:29→23:46)
[2023-11-28] MEDS: LANTUS 0.390000000000000013 UNITS SC (21:33)
[2023-11-28 22:42] LABS: Urine Albumin Negative (Neg - Trace); Urine Bilirubin Negative (Negative); Urine Character Clear (Clear); Urine Color Yellow; Urine Glucose Negative (Negative); Urine Ketone Negative (Negative); Urine Leukocyte Negative (Negative); Urine Nitrite Negative (Negative); Urine Occult Blood Negative (Negative); Urine Specific Gravity 1.015 (<1.030); Urine Urobilinogen Negative (Neg - 1+)
[2023-11-28 23:34] LABS: Glucose - Point of Care 374 mg/dl (70-99)
[2023-11-29] VITALS (14 sets, daily range): BP systolic 109–144; BP diastolic 53–97; PULSE 88–124; O2SAT 93; BMI 30.5
--- NOTE | 2023-11-29 00:42 | PTCARENOTE ---
Addendum entered by Vipin Alvarenga RN 11/29/23 01:57:
House CEO AND PRESIDENT ordered 10 units novolog STAT. Medication administered by RN.
Addendum entered by Vipin Alvarenga RN 11/29/23 01:39:
repeat BG at 01:30 was 330. [employer] CEO AND PRESIDENT notified.
Original Note:
Pt ordered PM 39 Units of Lantus. 21:30 glucose was 337. CEO AND PRESIDENT notified of reading. CEO AND PRESIDENT placed STAT order of 12 units Novolog as well. Pt given 39 units of Lantus and 12 units of Novolog. Pts BG recheck at 23:30 per protocol was 374. CEO AND PRESIDENT notified again
and ordered 12 a seccond STAT 12 units of Novolog, insulin was administered by RN. Pt is asymptomatic at this time. Will recheck.
[2023-11-29 01:34] LABS: Glucose - Point of Care 330 mg/dl (70-99)
[2023-11-29] MEDS: NOVOLOG FLEXPEN 10 UNITS SC (01:52)
[2023-11-29 03:40] LABS: Glucose - Point of Care 260 mg/dl (70-99)
[2023-11-29 03:50] LABS: % Basophils 0.1 % (0-2); % Eosinophils 0.1 % (0-6); % Lymphocytes 4.9 % (20.5-51.1); % Monocytes 2.7 % (1.7-9.3); % Neutrophils 91.2 % (42.2-75.2); Absolute Immature Granulocytes 0.2 10^3/uL (0-0.05); Absolute Lymphocytes 0.9 10^3/uL (1.2-3.4); Absolute Monocytes 0.5 10^3/uL (0.1-0.6); Absolute Neutrophils 17.4 10^3/uL (1.4-6.5); Hematocrit 27.6 % (39.0-52.0); Mean Corp Hgb Conc. 32.6 g/dL (33.0-37.0); Mean Platelet Volume 9.5 fL (7.4-10.4); Nucleated Red Blood Cells % 0 % (-); Platelet Count 293 10^3/uL (130-400); Red Cell Dist. Width 15.1 % (11.5-14.5); White Blood Cell Count 19.1 10^3/uL (4.8-10.8)
[2023-11-29 04:10] LABS: Blood Urea Nitrogen 77 mg/dl (9-20); Carbon Dioxide 29 mmol/L (22-30); Chloride 96 mmol/L (98-107); Estimated Creatinine Clearance 31 ml/min; Glucose 238 mg/dl (70-99); Potassium 4.4 mmol/L (3.5-5.1); Sodium 133 mmol/L (135-145); eGFR 29.17
[2023-11-29] MEDS: LASIX 80 MG IV (05:47)
--- NOTE | 2023-11-29 07:05 | W.PN.HOSP.TC ---
Today's Communication/Plan
-
Creatinine bumped up 2.2 furosemide dosing to nephrology continues to have excellent urine output
Continues on IV steroids
Have increased sliding scale coverage to high-dose and increase Lantus to 39 units
Increase benzonatate to 200
Assessment / Plan
Assessment / Plan
Physical Exam
General: chronically ill looking but not toxic appearing
HEENT: Moist mucous membranes and
Respiratory: +rales, . oxygen 9L midflow now
Cardiac: S1/S2 irregular irregular, Right upper chest port: not tender or redness in the area
GI: Soft, obese, non tender, +bs
Musculoskeletal: B/L LE edema with erythema with mild improvement
Neuro: AO x 3, followed commands.
Psych: Calm; No agitation.
83 years old male presented with weakness, weight gain and fever for 1 day duration
Assessment and plan
# Sepsis POA ( fever, tachycardia, leukocytosis) due to E Coli complicated UTI
#Leukocytosis likely 2/2 above and G-CSF agents and /steroids
#HyperEosinophilia now resolved
No recurrent fever. No more dysuria. Dry cough. No diarrhea. No body rash.
No gastrointestinal symptoms.
Blood culture no growth
Urine with E Coli
s/p Meropenem and Cefdinir was stopped 11/25 as completed course of abx. Monitor off antibiotics.
High WBC c/w recent G-CSF he received in October. Steroids
COVID test is negative.� Negative lactic acid.
Check LE doppler negative.
Multiple BM on 11/25.
WBC downtrended.
ID following
#Adynamic Ileus
No nausea or vomiting.
Denies abdominal pain or distention
No hiccups
Tolerating diet. MiraLAX started. Will add dulcolax
Enema ordered with good results
# Acute on chronic heart failure with preserved ejection fraction
-Latest echocardiogram 50 to 55% EF with mild wall motion abnormality inferior
losartan stopped due to hypotension
Lasix uptitrated to 80mg TID. Creatinine up now up to 2.2 nephrology following
ECHO EF 45-50%. Mild .
O2 requirement uptrending
Appreciate cardiology and nephrology input
#Acute hypoxic respiratory failure likely 2/2 AECHF vs. checkpoint inhibitor pneumonitis(per oncology does not fit timetable for this our)
see plan above
Lasix management nephrology
Wean oxygen as tolerated
Started on IV steroids which seemed to have helped symptomatically
CT chest noted discussed with pulmonary
Pulmonary will follow
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
bump in cr likely 2/2 diuretics and hypotension due to afib
bladder scan protocol.
Trend cr. remains hypervolemia.
Creatinine 2 .2. Will continue to monitor.
Nephrology following
#Hyponatremia ?due to overdiuresis
improving.
#Chronic aortic aneurysm
-CT abd/pelvis wtih aortic dissection
-Evaluated by vascular surgery -seems chronic
-follows Dr. Sloan
#Paroxysmal atrial fibrillation with intermittent RVR
Started on amiodarone and now low dose lopressor.
Soft BP is limiting factor for aggressive rate control
Started on Eliquis
# Anemia
likely of chronic disease and chemotherapy related
monitor daily
monitor closely as started on Eliquis.
# Hx of lung cancer
follows with Dr Shin, Office was notified.
Receiving Chemo and G-CSF agents.
Onc eval.
# History of BPH and obstruction.� Monitor for urinary retention.� Ordered a bladder scan
# History of coronary artery disease.� No chest pain. ASA stopped. Plavix continued. started on lopressor.
#Primary hypertension-now with hypotension. losartan stopped. BP improving
#Diabetes mellitus
Poorly controlled. HGB A1C 8.1 but with ongoing chemo Tx.
lantus increased to 39u
Swtich to high-dose ISS/while on steroids
Hyperglycemia due to steroids. Blood sugar 334 this morning
Will increase to high-dose ISS till can start tapering steroid
# PVD and carotid artery disease.
DVT ppx-on eliquis now
Full code
Anticipated Discharge: 24 - 48 hours
Subjective/Interval History
-
Date of Service: November 29, 2023
States his cough is a little better with further usage of the Tessalon Perles he had a fairly restful night continue 7 very good urine output almost up to 3 L remains on 6 L of nasal oxygen
Objective Data
-
Labs:
Laboratory Results
11/29/23
03:29
WBC 19.1 H
Hgb 9.0 L
Hct 27.6 L
Plt Count 293
Sodium 133 L
Potassium 4.4
Chloride 96 L
Carbon Dioxide 29
BUN 77 H
Creatinine 2.2 H
Glucose 238 H
Calcium 9.0
Vital Signs:
Vital Signs
Temp Pulse Resp BP Pulse Ox
97.5 F 74 16 111/58 96
11/29/23 04:19 11/29/23 06:00 11/29/23 06:00 11/29/23 06:00 11/29/23 06:00
I&O
11/28/23 11/29/23 11/30/23
06:59 06:59 06:59
Intake Total 200 / 200 2099 / 2100
Output Total 2145 / 2145 2975 / 2975
Balance -1945 / -1945 -5 / -875
Review of Systems
-
History Source: Patient
Constitutional: Reports Fatigue and Weakness
Respiratory: Reports Cough
Abdomen/GI: Reports No Symptoms
Physical Exam
-
General: Well Developed
HEENT: Normocephalic
Respiratory: Rales and Crackles
Cardiac: Regular Rhythm
GI: Soft
Musculoskeletal: Edema, Left Upper Extrem and Edema, Right Lower Extrem
Neuro: Awake, Alert, Oriented and AO x 3
Psych: Calm
Data Reviewed
-
Total Time Spent with Patient (in minutes): 67
Labs: Labs Reviewed by me (White count remains elevated 19.1 down from 20 yesterday/)
[2023-11-29 08:04] LABS: Glucose - Point of Care 223 mg/dl (70-99)
[2023-11-29] MEDS: DUONEB 3 ML INH ×4 (08:10→20:09)
[2023-11-29] MEDS: VITAMIN D3 (cholecalciferol) 100 MCG PO (08:26)
[2023-11-29] MEDS: MUCINEX 600 MG PO ×2 (08:26→20:03)
[2023-11-29] MEDS: ELIQUIS 2.5 MG PO ×2 (08:26→20:03)
[2023-11-29] MEDS: SOLU-MEDROL PF 40 MG IV ×3 (08:26→23:20)
[2023-11-29] MEDS: PACERONE 200 MG PO ×3 (08:26→21:04)
[2023-11-29] MEDS: FLOMAX 0.400000000000000022 MG PO ×2 (08:26→20:03)
[2023-11-29] MEDS: LOPRESSOR 25 MG PO ×2 (08:26→20:03)
[2023-11-29] MEDS: NON-FORMULARY ITEM 1 SPRAY NASAL ×2 (08:27→20:03)
[2023-11-29] MEDS: NOVOLOG FLEXPEN-HIGH RESISTANCE 4 UNITS SC (08:29)
--- NOTE | 2023-11-29 08:37 | W.PN.CARDCBS ---
Today's Communication / Plan
-
He is down to 6 L nasal cannula although feels improved with Solu-Medrol and increase Lasix
Wt is down and Is and Os negative over 1900 cc. Continue IV Lasix diuresis and monitor renal function. Creatinine stable at 2.2 and November 28 and 1.9 on November 28, 2023. New mildly reduced LV ejection fraction and history of heart failure with
preserved ejection fraction. Respiratory status had worsened despite improving proBNP. Defer further dosing of lasix to nephrology
Continue IV Solu-Medrol started per hematology, concern for Keytruda associated pneumonitis. Pulm input appreciated.
Cont Eliquis for atrial fibrillation, new this admission.
ASA stopped and pt kept on Plavix for hx CAD and PAD
Cont Amiodarone and transition to 200 mg BID next 24 hrs.
Cont Lopressor
Limited 2D echo November 28 2023: EF 50-55% with akinesis of basal inferior wall and mild with mean grad 10 mmHg.
Coronary artery disease with history of urgent CABG for left main disease and VF/VT arrest in 2014 followed by PCI to left main and circumflex
Impression / Plan
-
.
PCP: VJ Bro
CDY: Jia Blackburn MD
Impression:
Hypoxic respiratory failure and pulmonary edema with increased O2 requirements
Acute on chronic HFpEF
Increasing leukocytosis, eosinophilia
New atrial fibrillation 11/21/2023; Eliquis started
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
Recent UTI status posttreatment
CAD
urgent CABGx1 KINCAID-LAD (VF/VT arrest) 04/2015
PCI LM and LCx 06/2015
s/p cath with patent KINCAID-LAD and stents, non new occlusive disease 10/22/22
Non-small cell lung cancer status postradiation November 2022 currently on on Carbo/Taxol, Pembrolizumab last received, last dose 10/31
COPD/Emphysema
PVD - fem bypass and [employer] [facility] 2016
CEA B/L 2018
AAA 3.2cm
CDK3a
HTN
HLD
KIM
RBBB
DM2
Former smoker
Echo 10/22/2022�EF 65 to 70%.� Mild MR.� Aortic valve gradients 20/8 mmHg peak/mean consistent with mild aortic valve stenosis.� Trace TR with PA pressure 30 to 35 mmHg
-CT chest abdomen pelvis: Extensive bilateral reticulonodular and groundglass opacities suggestive of extensive bilateral pneumonia, atypical for pulmonary edema per radiology. Small to moderate right pleural effusion, left pleural effusion
Plan:
Hypoxic respiratory failure with increased O2 requirements despite diuresis efforts required transfer to IMU 11/25
He is down to 6 L nasal cannula although feels improved with Solu-Medrol and increase Lasix
Wt is down and Is and Os negative over 1900 cc. Continue IV Lasix diuresis and monitor renal function. Creatinine stable at 2.2 and November 28 and 1.9 on November 28, 2023. New mildly reduced LV ejection fraction and history of heart failure with
preserved ejection fraction. Respiratory status had worsened despite improving proBNP. Defer further dosing of lasix to nephrology
Continue IV Solu-Medrol started per hematology, concern for Keytruda associated pneumonitis. Pulmiput appreciated.
Cont Eliquis for atrial fibrillation, new this admission.
ASA stopped and pt kept on Plavix for hx CAD and PAD
Cont Amiodarone and transition to 200 mg BID next 24 hrs.
Cont Lopressor
Cont rate control strategy given pulm status.
Limited 2D echo November 28 2023: EF 50-55% with akinesis of basal inferior wall and mild with mean grad 10 mmHg.
TSH 0.45 borderline. Defer further eval TFTs to primary service.
Known AAA with recent CT chest abdomen pelvis reporting chronic abdominal aortic dissection, outpt vascular follow up Dr. Sloan
Coronary artery disease with history of urgent CABG for left main disease and VF/VT arrest in 2014 followed by PCI to left main and circumflex
HPI: He has a complex medical history including VT/VF Cardiac arrest with LM stenosis urgent CABGx1 KINCAID-LAD 04/2015, PCI LM and LCx 06/2015, PAfib, PVD with multiple peripheral interventions including fem bypass, b/l CEA 2018, AAA, HTN, HLD, DM2,
CKD3, RBBB, KIM, COPD/Emphysema and MICHEAL lung CA on chemo/XRT.
Progress Note - Technology Development Intern
Subjective
Date of Service: November 29, 2023
Patient seen and examined. Breathing improved.
Objective
Labs:
11/29/23 03:29
11/29/23 03:
Labs
Hgb 9.0 g/dL (13.0-18.0) L 11/29/23 03:
Hct 27.6 % (39.0-52.0) L 11/29/23 03:29
Plt Count 293 10^3/uL (130-400) 11/29/23 03:29
Sodium 133 mmol/L (135-145) L 11/29/23 03:29
Potassium 4.4 mmol/L (3.5-5.1) 11/29/23 03:29
BUN 77 mg/dl (9-20) H 11/29/23 03:29
Creatinine 2.2 mg/dL (0.7-1.3) H 11/29/23 03:29
Glucose 238 mg/dl (70-99) H 11/29/23 03:29
Vital Signs and I&O:
Vital Signs
Temp Pulse Resp BP Pulse Ox
97.5 F 82 16 133/81 96
11/29/23 04:19 11/29/23 08:26 11/29/23 06:00 11/29/23 08:26 11/29/23 06:00
Vital Signs
Temp Pulse Resp BP Pulse Ox
97.5 F 82 16 133/81 96
11/29/23 04:19 11/29/23 08:26 11/29/23 06:00 11/29/23 08:11/29/23 06:00
Intake & Output
11/27/23 11/28/23 11/29/23 11/30/23
06:59 06:59 06:59 06:59
Intake Total 200 / 200 200 / 200 2099 / 2099
Output Total 2024 2145 / 214 2975 / 2975
Balance -1825 / -182 -194 / -1945 -5 / -875
Physical Exam
Physical Exam
General: No acute distress, AAOX3
Neck: Negative JVD
Heart: Irregular regular, Negative S3 positive S1/S2, Negative S4, No murmur
Lungs: CTA b/l, negative wheezes/rales/rhonchi
Abd: Positive BS, NT/ND, neg rebound/rigidity/guarding
Ext: Negative cyanosis/clubbing/edema
Neuro: nonfocal
--- NOTE | 2023-11-29 09:39 | W.PN.ID1 ---
Date of Service
Date of Service: November 29, 2023
Today's Communication
repeat CXR in the AM
follow sputum culture
repeat UA negative
Assessment / Plan
#Hypereosinophilia - resolved with steroids
# SCC of lung hx XRT; on Carbo/Taxol, Pembrolizumab last received last dose 10/31
# Acute hypoxemic respiratory failure - continued improvement
- O2 requirements further improved
- eosinophilia responsive to steroid
- CT bilateral nodular parenchymal opacities 11/25
- repeat CXR tomorrow
- keytruda, cephalosporin possible causes of eosinophilia in my opinion, I would not rechallenge with a cephalosporin - updated allergy list
- No abx at this time
#Leukocytosis - in part due to steroids
# Hypothermia - resolved
# s/p UTI treatment
- repeat blood cultures no growth to date
- UA negative 11/25 and 11/27 negative
- sputum culture if able to produce one - in progress, gram stain pending
# KATHARINE on CKD
Chief Complaint
-: Leukocytosis, Pneumonia and Other (Eosinophilia)
Subjective / Review of Systems
remains afebrile
bp stable
further improvement to 6L
wbc slight improvement
L shift persists on steroids, minimal persistent eosinophilia
cr 2.2
resp culture pending
less dyspnea, less cough, mainly nonproductive
Vital Signs / Physical Exam
Vital Signs
Vital Signs
Temp Pulse Resp BP Pulse Ox
97.5 F 82 16 133/81 96
11/29/23 04:19 11/29/23 08:26 11/29/23 06:00 11/29/23 08:26 11/29/23 06:00
Physical Exam
Constitutional: No Acute Distress
Cardiovascular: Regular Rate and S1/S2; Negative Murmur or Rub
Pulmonary: Clear, Symmetric and Non Labored; Negative Wheezes or Rales
Gastrointestinal: Soft, Non Tender, Non Distended and Normal Bowel Sounds
Skin: Warm and Dry; Negative Rash or Jaundice
Objective Data
Lab Data
Lab Results
11/29/23 03:29
11/29/23 03:29
Estimated Creat Clear 31 ml/min 11/29/23 03:29
Lactic Acid 1.1 mmol/L (0.7-2.0) 11/24/23 03:34
Total Bilirubin Cancelled 11/25/23 10:27
AST Cancelled 11/25/23 10:27
ALT Cancelled 11/25/23 10:27
Alkaline Phosphatase Cancelled 11/25/23 10:27
Most recent labs reviewed.
Micro Results:
11/28/23 20:57 Respiratory Culture - Pending
Sputum Gram Stain - Pending
11/26/23 17:54 Blood Culture - Preliminary
Blood/Venous No Growth in 48 hours- Final report to follow
11/26/23 17:57 Blood Culture - Preliminary
Blood/Venous No Growth in 48 hours- Final report to follow
11/26/23 17:46 Legionella Urinary Antigen - Final
Urine Negative for Legionella pneumophila Serogroup 1 antigen.
A negative result does not rule out the possiblity of
Legionella infection due to other serogroups or species of
Legionella. Clinical correlation is recommended.
Streptococcus pneumoniae Antigen (M - Final
Negative for Streptococcus pneumoniae antigen.
A negative result does not exclude infection with
Streptococcus pneumoniae. Clinical correlation is
recommended.
11/24/23 03:24 Influenza Types A & B (MARY) - Final
Nasal Swab Negative for Influenza A & B, NAAT
Negative results must be combined with clinical observations
and patient history.
Nucleic Acid Amplification test (NAAT)performed on the
[employer] platform.
11/18/23 17:54 Blood Culture - Final
Blood/Venous No Growth - Final Report
11/18/23 17:49 Blood Culture - Final
Blood/Venous No Growth - Final Report
11/18/23 16:54 Urine Culture - Final
Urine Escherichia coli
11/18/23 14:18 Influenza Types A & B (MARY) - Final
Nasal Swab Negative for Influenza A & B, NAAT
Negative results must be combined with clinical observations
and patient history.
Nucleic Acid Amplification test (NAAT)performed on the
[employer] platform.
11/26/23 CT C/A/P: Fairly extensive parenchymal opacity throughout both lungs, mostly a small nodular pattern, although also having a reticulonodular and groundglass pattern.�Small to moderate right pleural effusion with small left pleural
effusion.Dilation of the abdominal aorta with maximum AP dimension of 3.3 cm. Morphologic appearance of the abdominal aorta compatible with chronic dissection.
--- NOTE | 2023-11-29 10:52 | W.PN.PUL.V3 ---
Today's Communication / Plan
-
Methylprednisolone without change
Antibiotics
Wean oxygen
Increase activity
Assessment
-
Patient is a 83 year old M with complex cardiac history including VT/VF arrest, CAD s/p CABG 04/2015, PCI LM and LCx 06/2015, Afib, PVD with multiple peripheral interventions including fem bypass, b/l CEA 2018, AAA, COPD/Emphysema, squamous cell lung
cancer left upper lobe status post radiation/chemotherapy 10/31/2023, now presents with increased shortness of breath x 5 days, weight gain, lower extremity swelling, fever. We are asked to comment on pulmonary status 11/19, and we are now asked to
comment given his continued high oxygen requirements on 11/27/2023.
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
Suspected acute heart failure
Preserved ejection fraction
Hypereosinophilia-resolved with steroids
Leukocytosis
UTI due to E. coli
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
Status post SBRT - November 2022
Progression via PET in 07/2023 s/p chemoimmunotherapy on 10/31/2023 with Keytruda and carbo/taxol
Conditions present prior to admission
AFib
CAD s/p CABG KINCAID-LAD 04/2015
PCI LM and LCX 06/2015
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
Former smoker
HTN
Hypercholesterolemia
NIDDM
BPH
RBBB
PVD s/p vein stripping, Fem bypass 2019
b/l CEA 2018
Chronic kidney disease
History of aortic aneurysm
�
Plan:
Pulmonary believes his continues hypoxemic respiratory failure is multifactorial from acute hypervolemia, pneumonia and ICI-pneumonitis, although that usually occurs ~3 months after receiving Keytruda but it is not impossible to occur sooner.
Respiratory status still somewhat tenuous-remains on 6 L-he does not have home oxygen
Will need to assess discharge supplemental oxygen needs at the time of discharge-told patient he might require temporary oxygen at home
Attempt oxygen wean
Methylprednisolone 40 mg IV every 8 hours continues-no change
Nebulizers if needed-currently not bronchospastic
Aspiration precautions
Tessalon pearls as needed
Chest x-ray 11/30/2023
Continue diuresis as tolerated
Follow renal function, electrolytes, intake/output, lower extremity edema and weight
Continue to replace electrolytes as needed
Cultures reviewed
Last dose of antibiotics was on 11/25/2023 (cefdinir from 11/20 - 11/24; s/p meropenem 11/20 - 11/21/23; IV vanco x 2 doses from 11/18 - 11/19/23; also Invanz x1 dose on 11/18/23
His urine cultures were suggestive of UTI (E. coli R to cipro and levaquin)
Infectious disease following-correspondence reviewed
Monitor blood sugar
Insulin supplementation as needed
DVT prophylaxis-on Eliquis
Follow-up with Dr. Melgar as previously scheduled
Diagnostic Data
PFTs 09/02/21: FEV1 2.62L 89%, FVC 4.08L 99%, ratio 64. TLC 6.65L 92%, DLCO 46% (mild obstruction, normal volumes, moderate diffusion impairment)
CT Chest/Abd/Pelvis without contrast 11-26-2023:�
Fairly extensive parenchymal opacity throughout both lungs, mostly a small nodular pattern, although also having a reticulonodular and groundglass pattern. The morphologic appearance is most suggestive of extensive bilateral pneumonia. This could
represent pulmonary edema, but somewhat atypical distribution with some regions of relative sparing. Based on imaging findings alone, this could represent lymphangitic spread of carcinoma, but felt to be unlikely based on its relatively fast
appearance radiographically.
Small to moderate right pleural effusion with small left pleural effusion.
No evidence for acute abnormality within the abdomen or pelvis. There is a small left inguinal hernia, with a portion of the colon protruding into the base of this small hernia, with no evidence for obstruction.
Dilation of the abdominal aorta with maximum AP dimension of 3.3 cm. Morphologic appearance of the abdominal aorta compatible with chronic dissection.
Colonic diverticula with no CT evidence for diverticulitis.
Subjective Data
-
Date of Service:
Date of Service: November 29, 2023
Chief Complaint: Pulmonary Follow Up and Dyspnea Follow Up
Subjective:
Overall feels better, still has significant shortness of breath, no chest pain, abdominal pain, does not have oxygen at home
Review of Systems
General: Other
Objective Data
Data Reviewed
Vital Signs / I&O:
Vital Signs
Temp Pulse Resp BP Pulse Ox
97.4 F 82 16 133/81 96
11/29/23 07:35 11/29/23 08:26 11/29/23 06:00 11/29/23 08:26 11/29/23 06:00
Intake and Output
11/28/23 11/29/23 11/30/23
06:59 06:59 06:59
Intake Total 200 / 200 2100 / 2100
Output Total 2145 / 2145 2975 / 2975 450 / 450
Balance -1945 / -1945 -875 / -875 -450 / -450
SaO2: 96
Nasal Cannula flow liters per minute: 6
Physical Exam
General: Respiratory Distress (negative), Comfortable and Chills (negative)
HEENT: Normocephalic and Anicteric
Cardiovascular: Regular Rhythm, Murmur (n) and Peripheral Edema (+2 LE pitting edema)
Respiratory: Wheeze (n), Crackles (n), Rhonchi (n), Non-Labored Respirations and Accessory Resp Muscle Use (only during exertional activities)
GI: Soft, Non Distended and Non Tender
Neurology: Awake, Alert and No Motor Deficits
Skin: Warm, Good Color, Cyanosis (n), Jaundice (n), Rash (n) and Other (Mild chronic venous stasis changes)
Labs/Micro/Reports
Lab Data
11/29/23 03:29
11/29/23 03:29
Microbiology
11/26/23 17:54 Blood/Venous Blood Culture - Preliminary
No Growth in 48 hours- Final report to follow
11/26/23 17:57 Blood/Venous Blood Culture - Preliminary
No Growth in 48 hours- Final report to follow
11/26/23 17:46 Urine Legionella Urinary Antigen - Final
Negative for Legionella pneumophila Serogroup 1 antigen.
A negative result does not rule out the possiblity of
Legionella infection due to other serogroups or species of
Legionella. Clinical correlation is recommended.
11/26/23 17:46 Urine Streptococcus pneumoniae Antigen (M - Final
Negative for Streptococcus pneumoniae antigen.
A negative result does not exclude infection with
Streptococcus pneumoniae. Clinical correlation is
recommended.
[2023-11-29 12:13] LABS: Glucose - Point of Care 401 mg/dl (70-99)
[2023-11-29 12:33] LABS: Glucose 391 mg/dl (70-99)
[2023-11-29] MEDS: NOVOLOG FLEXPEN-HIGH RESISTANCE 12 UNITS SC ×2 (12:36→17:51)
[2023-11-29] MEDS: TESSALON PERLES 200 MG PO ×2 (12:37→18:25)
--- NOTE | 2023-11-29 13:01 | CM ---
CM met with pt per his request
His brought in his bills and check book
He is requesting assistance with paying bills
CM explained CM is not able to write out his checks and pay bills for him
CM did assist with organization of paperwork and set up pt's table so he can write out his checks
Pt remains with O2 needs and in IMU
VN recommended and pt previously declined
CM will continue to follow pt for VN and home O2 needs
Discharge Disposition- home, watch for VN and O2 needs
--- NOTE | 2023-11-29 13:16 | W.PN.ONC ---
Today's Communication / Plan
-
Clinical picture concerning for pneumonitis from cancer treatment, either from Keytruda or Taxol, though occurred surprisingly quickly after first treatment
Improving on steroids, initiated 11/26/23; continue the same
O2, wean as able
Abx for UTI
Further cancer treatment to be considered based on recovery, though I'd be reluctant to rechallenge with Keytruda and Taxol
Impression
Impression
Non-small cell lung cancer, disease progression in lung and hilar node s/p radiation (11/2022)
Chemotherapy: Carbo/Taxol, Pembrolizumab last received 10/31/23 (first treatment)
Leukocytosis (s/p GCS-F Rolvedon 11/01/23)
Hypoxic respiratory failure
Shortness of breath
Acute on chronic heart failure
Volume overload
Atrial fibrillation, new
Lower extremity edema
Fevers (resolved)
Hypotension
Plan
Plan
Clinical picture concerning for pneumonitis from cancer treatment, either from Keytruda or Taxol, though occurred surprisingly quickly after first treatment
Improving on steroids, initiated 11/26/23; continue the same
O2, wean as able
Abx for UTI
Further cancer treatment to be considered based on recovery, though I'd be reluctant to rechallenge with Keytruda and Taxol
Subjective/Objective
Subjective/Objective
feeling overall better day to day
Vital Signs:
Vital Signs
Temp Pulse Resp BP Pulse Ox
98 F 97 23 133/81 97
11/29/23 12:00 11/29/23 11:58 11/29/23 11:58 11/29/23 08:26 11/29/23 11:58
Lab Results:
Laboratory Data
WBC 19.1 10^3/uL (4.8-10.8) H 11/29/23 03:29
Hgb 9.0 g/dL (13.0-18.0) L 11/29/23 03:29
Plt Count 293 10^3/uL (130-400) 11/29/23 03:29
eGFR 29.17 11/29/23 03:29
[2023-11-29] MEDS: MIRALAX PO ×2 (15:48→20:03)
[2023-11-29] MEDS: PLAVIX 75 MG PO (16:08)
[2023-11-29] MEDS: CRESTOR 40 MG PO (16:08)
--- NOTE | 2023-11-29 16:30 | W.PN.NEPH.PH ---
Today's Communication / Plan
-
stop diuretics
monitor I/Os
Assessment/Plan
-
Assessment
KATHARINE
CKD 3B
Worsening pulmonary edema
Eosinophilia
Recent sepsis
Hyponatremia
Anemia
Diffuse anasarca
Paroxysmal atrial fibrillation
Non-small cell lung cancer
Hypertension
Coronary artery disease
Plan
-patient feels much improved this AM but unfortunately KATHARINE worsening. hold lasix
-follow BMP, Cr worse at 2.2. bl 1.4-1.8
-trend CBC
-pulm stated that hypoxemic resp failure is likely multifactorial. continue with methylpred 40mg IV q8h
-UOP at 3.5L, likely too quickly for this patinet
-Na improving with diuresis as well but will hold now with Cr bump
-remains high risk situation
-
-
Date of Service: November 29, 2023
CC / HPI / ROS
-
Chief Complaint:
KATHARINE
History of Present Illness:
KATHARINE/Cr worsening at 2.2
Na stable 133
diuresed with IV lasix, edema improving
eosinophilia improved?, WBC improving
remains on high O2 requirements
Review of Systems:
SOB
no CP
Labs
-
Labs:
WBC 19.1 10^3/uL (4.8-10.8) H 11/29/23 03:29
RBC 3.10 10^6/uL (4.70-6.10) L 11/29/23 03:29
Hgb 9.0 g/dL (13.0-18.0) L 11/29/23 03:29
Hct 27.6 % (39.0-52.0) L 11/29/23 03:29
Plt Count 293 10^3/uL (130-400) 11/29/23 03:29
Sodium 133 mmol/L (135-145) L 11/29/23 03:29
Potassium 4.4 mmol/L (3.5-5.1) 11/29/23 03:29
Chloride 96 mmol/L (98-107) L 11/29/23 03:29
Carbon Dioxide 29 mmol/L (22-30) 11/29/23 03:29
BUN 77 mg/dl (9-20) H 11/29/23 03:29
Creatinine 2.2 mg/dL (0.7-1.3) H 11/29/23 03:29
eGFR 29.17 11/29/23 03:29
Glucose 391 mg/dl (70-99) H 11/29/23 12:12
Calcium 9.0 mg/dl (8.4-10.2) 11/29/23 03:29
Rkg-J-Antizjaddla Pept 3170 pg/ml 11/26/23 07:45
Albumin Cancelled 11/25/23 10:27
Physical Exam
-
Vital Signs:
Vital Signs
Temp Pulse Resp BP Pulse Ox
98 F 99 20 110/83 96
11/29/23 12:00 11/29/23 16:07 11/29/23 15:56 11/29/23 16:07 11/29/23 15:56
Cardiovascular:: Irregular rate and rhythm
Respiratory:: Bilateral: Coarse
Lung Excursion:: Normal
Abdomen:: Nontender and Soft
Bowel Sounds:: Normal
Extremity Edema:: +2: Bilateral:
Sloan Catheter: No
[2023-11-29 17:42] LABS: Glucose - Point of Care 364 mg/dl (70-99)
[2023-11-29] MEDS: METAMUCIL, KONSYL 1 PACKET PO (17:52)
[2023-11-29] MEDS: LANTUS 0.450000000000000011 UNITS SC (21:04)
[2023-11-29 21:14] LABS: Glucose - Point of Care 360 mg/dl (70-99)
[2023-11-30] VITALS (13 sets, daily range): BP systolic 107–142; BP diastolic 51–120; PULSE 79; O2SAT 93; BMI 30.5
--- NOTE | 2023-11-30 04:38 | PTCARENOTE ---
assumed care of patient, no acute events overnight. blood sugars remain elevated. lantus 45 units given. pt standby assistance from chair to bed without issues. no c/o pain. on 4L NC 90-94%. no c/o SOB. care ongoing.
[2023-11-30 05:38] LABS: Hematocrit 26.1 % (39.0-52.0); Hemoglobin 8.7 g/dL (13.0-18.0); Mean Corp Hgb Conc. 33.3 g/dL (33.0-37.0); Mean Corpuscular Hgb 28.9 pg (27.0-31.0); Mean Corpuscular Volume 86.7 fL (80.0-94.0); Mean Platelet Volume 9.2 fL (7.4-10.4); Platelet Count 281 10^3/uL (130-400); Red Blood Cell Count 3.01 10^6/uL (4.70-6.10); White Blood Cell Count 15.1 10^3/uL (4.8-10.8)
[2023-11-30 05:57] LABS: Blood Urea Nitrogen 82 mg/dl (9-20); Calcium 8.7 mg/dl (8.4-10.2); Carbon Dioxide 29 mmol/L (22-30); Chloride 96 mmol/L (98-107); Estimated Creatinine Clearance 33 ml/min; Glucose 369 mg/dl (70-99); Sodium 131 mmol/L (135-145); eGFR 30.85
--- NOTE | 2023-11-30 06:27 | W.PN.ONC2 ---
Today's Communication / Plan
-
Clinically improving. WBC improving as is O2 requirement.
We will resume chemotherapy after recovery but unlikely Keytruda or paclitaxel. There are alternatives that are efficacious without pulm risks.
Impression
Impression
Iatrogenic pneumonitis 2* Keytruda or paclitaxel
Non-small cell lung cancer, disease progression in lung and hilar node s/p radiation (11/2022)
Chemotherapy: Carbo/Taxol, Pembrolizumab last received 10/31/23 (first treatment)
Leukocytosis (s/p GCS-F Rolvedon 11/01/23)
Hypoxic respiratory failure
Acute on chronic heart failure
Atrial fibrillation, new
Lower extremity edema
Fevers (resolved)
Hypotension
Plan
Plan
Clinical picture concerning for pneumonitis from cancer treatment, either from Keytruda or Taxol, though occurred surprisingly quickly after first treatment
Improving on steroids, initiated 11/26/23; continue the same
O2, wean as able
Further cancer treatment to be considered based on recovery, though I'd be reluctant to rechallenge with Keytruda or Taxol
Subjective/Objective
Chief Complaint
ACS Oncology
Subjective
Doing better. Slept overnight and O2 down to 4L (was 10L initially). Wants to resume treatment after discharge and wants to remain on treatment.
Vital Signs:
Vital Signs
Temp Pulse Resp BP Pulse Ox
97.7 F 67 14 118/65 95
11/30/23 03:44 11/30/23 04:00 11/30/23 04:00 11/30/23 04:00 11/30/23 04:00
Lab Results:
Laboratory Data
WBC 15.1 10^3/uL (4.8-10.8) H 11/30/23 05:21
Hgb 8.7 g/dL (13.0-18.0) L 11/30/23 05:21
Plt Count 281 10^3/uL (130-400) 11/30/23 05:21
eGFR 30.85 11/30/23 05:21
Physical Exam
HEENT: No Jaundice
Cardiology: Normal Sinus Rhythm, S1 and S2
Pulmonary: Clear
GI: Soft
Extremities: Edema (1-2+)
--- NOTE | 2023-11-30 07:11 | W.PN.HOSP.TC ---
Today's Communication/Plan
-
Clinical improvement noted diminished oxygen requirements noted
Increase activity PT and OT
Steroid taper as per pulmonary
Diuretics as per nephrology
Continue to titrate insulin for hyperglycemia while on steroids
Assessment / Plan
Assessment / Plan
Physical Exam
General: chronically ill looking but not toxic appearing
HEENT: Moist mucous membranes and
Respiratory: +rales, . oxygen 9L midflow now
Cardiac: S1/S2 irregular irregular, Right upper chest port: not tender or redness in the area
GI: Soft, obese, non tender, +bs
Musculoskeletal: B/L LE edema with erythema with mild improvement
Neuro: AO x 3, followed commands.
Psych: Calm; No agitation.
83 years old male presented with weakness, weight gain and fever for 1 day duration
Assessment and plan
# Sepsis POA ( fever, tachycardia, leukocytosis) due to E Coli complicated UTI
#Leukocytosis likely 2/2 above and G-CSF agents and /steroids/trending down
#HyperEosinophilia now resolved
No recurrent fever. No more dysuria. Dry cough. No diarrhea. No body rash.
No gastrointestinal symptoms.
Blood culture no growth
Urine with E Coli
s/p Meropenem and Cefdinir was stopped 11/25 as completed course of abx. Monitor off antibiotics.
High WBC c/w recent G-CSF he received in October. Steroids
COVID test is negative.� Negative lactic acid.
Check LE doppler negative.
Multiple BM on 11/25.
WBC downtrended.
ID following
#Adynamic Ileus
No nausea or vomiting.
Denies abdominal pain or distention
No hiccups
Tolerating diet. MiraLAX started. Will add dulcolax
Enema ordered with good results
# Acute on chronic heart failure with preserved ejection fraction
-Latest echocardiogram 50 to 55% EF with mild wall motion abnormality inferior
losartan stopped due to hypotension
Lasix uptitrated to 80mg TID. Creatinine up now up to 2.2 nephrology holding further diuretics
ECHO EF 45-50%. Mild .
O2 requirement uptrending
Appreciate cardiology and nephrology input
#Acute hypoxic respiratory failure likely 2/2 AECHF vs. checkpoint inhibitor pneumonitis(per oncology does not fit timetable for this however)
see plan above
Lasix management nephrology
Wean oxygen as tolerated
Started on IV steroids which seemed to have helped symptomatically
CT chest noted discussed with pulmonary
Pulmonary will follow
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
bump in cr likely 2/2 diuretics and hypotension due to afib
bladder scan protocol.
Trend cr. remains hypervolemia.
Creatinine 2 .2. Will continue to monitor.
Nephrology following
#Hyponatremia ?due to overdiuresis
improving.
#Chronic aortic aneurysm
-CT abd/pelvis wtih aortic dissection
-Evaluated by vascular surgery -seems chronic
-follows Dr. Sloan
#Paroxysmal atrial fibrillation with intermittent RVR
Started on amiodarone and now low dose lopressor.
-Transition to amiodarone 200 mg twice a day today per cardiology
Soft BP is limiting factor for aggressive rate control
Started on Eliquis
# Anemia
likely of chronic disease and chemotherapy related
monitor daily
monitor closely as started on Eliquis.
# Hx of lung cancer
follows with Dr Shin, Office was notified.
Receiving Chemo and G-CSF agents.
Onc eval.
# History of BPH and obstruction.� Monitor for urinary retention.� Ordered a bladder scan
# History of coronary artery disease.� No chest pain. ASA stopped. Plavix continued. started on lopressor.
#Primary hypertension-now with hypotension. losartan stopped. BP improving
#Diabetes mellitus
Poorly controlled. HGB A1C 8.1 but with ongoing chemo Tx.
lantus increased to 45 units and added mealtime NovoLog
Swtich to moderate -dose ISS/while on steroids
Hyperglycemia due to steroids. Blood sugar 334 this morning
# PVD and carotid artery disease.
DVT ppx-on eliquis now
Full code
Anticipated Discharge: 24 - 48 hours
Subjective/Interval History
-
Date of Service: November 30, 2023
Continues to show some improvement in respiratory fibrosis we will for oxygen with more than 4 L overnight with cough and congestion. Still adequate urine output in spite of holding diuretics yesterday
Objective Data
-
Labs:
Laboratory Results
11/30/23
05:21
WBC 15.1 H
Hgb 8.7 L
Hct 26.1 L
Plt Count 281
Sodium 131 L
Potassium 5.0
Chloride 96 L
Carbon Dioxide 29
BUN 82 H
Creatinine 2.1 H
Glucose 369 H
Calcium 8.7
Vital Signs:
Vital Signs
Temp Pulse Resp BP Pulse Ox
97.7 F 65 16 131/61 93
11/30/23 03:44 11/30/23 06:00 11/30/23 06:00 11/30/23 06:00 11/30/23 06:00
I&O
11/29/23 11/30/23 12/01/23
06:59 06:59 06:59
Intake Total 2099 / 2099
Output Total 2975 / 2975 1350 / 1350
Balance -875 / -875 -1350 / -1350
Review of Systems
-
History Source: Patient
Constitutional: Reports Weakness
Respiratory: Reports Cough
Physical Exam
-
General: Well Developed
HEENT: Normocephalic
Respiratory: Crackles
Cardiac: Regular Rhythm
Musculoskeletal: Edema, Right Lower Extrem and Edema, Left Lower Extrem
Neuro: Awake
Psych: Calm
Data Reviewed
-
Total Time Spent with Patient (in minutes): 45
Labs: Labs Reviewed by me (White count trending down at 15/blood sugars remain elevated from steroids)
[2023-11-30 07:52] LABS: Glucose - Point of Care 416 mg/dl (70-99)
[2023-11-30] MEDS: DUONEB 3 ML INH ×4 (07:56→20:35)
[2023-11-30] MEDS: SOLU-MEDROL PF 40 MG IV ×3 (08:08→23:15)
[2023-11-30] MEDS: LOPRESSOR 25 MG PO ×2 (08:17→20:46)
[2023-11-30] MEDS: PACERONE 200 MG PO ×2 (08:18→20:46)
[2023-11-30] MEDS: VITAMIN D3 (cholecalciferol) 100 MCG PO (08:18)
[2023-11-30] MEDS: NON-FORMULARY ITEM 1 SPRAY NASAL ×2 (08:18→20:46)
[2023-11-30] MEDS: ELIQUIS 2.5 MG PO ×2 (08:18→20:46)
[2023-11-30] MEDS: FLOMAX 0.400000000000000022 MG PO ×2 (08:18→20:46)
[2023-11-30] MEDS: MUCINEX 600 MG PO ×2 (08:18→20:46)
[2023-11-30 08:34] LABS: Glucose 371 mg/dl (70-99)
--- NOTE | 2023-11-30 08:34 | W.PN.PUL.V3 ---
Today's Communication / Plan
-
slow steroid taper.
Wean oxygen.
Assess discharge supplemental oxygen needs.
Diuretics on hold
Assessment
-
Patient is a 83 year old M with complex cardiac history including VT/VF arrest, CAD s/p CABG 04/2015, PCI LM and LCx 06/2015, Afib, PVD with multiple peripheral interventions including fem bypass, b/l CEA 2018, AAA, COPD/Emphysema, squamous cell lung
cancer left upper lobe status post radiation/chemotherapy 10/31/2023, now presents with increased shortness of breath x 5 days, weight gain, lower extremity swelling, fever. We are asked to comment on pulmonary status 11/19, and we are now asked to
comment given his continued high oxygen requirements on 11/27/2023.
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
Suspected acute heart failure
Preserved ejection fraction
Hypereosinophilia-resolved with steroids
Leukocytosis
UTI due to E. coli
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
Status post SBRT - November 2022
Progression via PET in 07/2023 s/p chemoimmunotherapy on 10/31/2023 with Keytruda and carbo/taxol
Conditions present prior to admission
AFib
CAD s/p CABG KINCAID-LAD 04/2015
PCI LM and LCX 06/2015
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
Former smoker
HTN
Hypercholesterolemia
NIDDM
BPH
RBBB
PVD s/p vein stripping, Fem bypass 2019
b/l CEA 2018
Chronic kidney disease
History of aortic aneurysm
�
Plan:
Pulmonary believes his continues hypoxemic respiratory failure is multifactorial from acute hypervolemia, pneumonia and ICI-pneumonitis, although that usually occurs ~3 months after receiving Keytruda but it is not impossible to occur sooner..
Respiratory status continues to improve-FiO2 now weaned to 2 L-he does not have home oxygen
Will need to assess discharge supplemental oxygen needs at the time of discharge-told patient he might require temporary oxygen at home
Methylprednisolone 40 mg IV every 8 hours continues-no change
Nebulizers if needed-currently not bronchospastic
Aspiration precautions
Tessalon pearls as needed
Chest x-ray 11/30/2023
Continue diuresis as tolerated
Follow renal function, electrolytes, intake/output, lower extremity edema and weight
Continue to replace electrolytes as needed
Oncology following-correspondence reviewed-feel iatrogenic pneumonitis secondary to Keytruda or Paclitaxel
Nephrology following-correspondence reviewed.
Lasix per nephrology-on hold
Cardiology following-correspondence reviewed.-Continue Eliquis and amiodarone
Cultures reviewed
Last dose of antibiotics was on 11/25/2023 (cefdinir from 11/20 - 11/24; s/p meropenem 11/20 - 11/21/23; IV vanco x 2 doses from 11/18 - 11/19/23; also Invanz x1 dose on 11/18/23
His urine cultures were suggestive of UTI (E. coli R to cipro and levaquin)
Infectious disease following-correspondence reviewed
Monitor blood sugar
Insulin supplementation as needed
DVT prophylaxis-on Eliquis
Follow-up with Dr. Melgar as previously scheduled
Diagnostic Data
PFTs 09/02/21: FEV1 2.62L 89%, FVC 4.08L 99%, ratio 64. TLC 6.65L 92%, DLCO 46% (mild obstruction, normal volumes, moderate diffusion impairment)
CT Chest/Abd/Pelvis without contrast 11-26-2023:�
Fairly extensive parenchymal opacity throughout both lungs, mostly a small nodular pattern, although also having a reticulonodular and groundglass pattern. The morphologic appearance is most suggestive of extensive bilateral pneumonia. This could
represent pulmonary edema, but somewhat atypical distribution with some regions of relative sparing. Based on imaging findings alone, this could represent lymphangitic spread of carcinoma, but felt to be unlikely based on its relatively fast
appearance radiographically.
Small to moderate right pleural effusion with small left pleural effusion.
No evidence for acute abnormality within the abdomen or pelvis. There is a small left inguinal hernia, with a portion of the colon protruding into the base of this small hernia, with no evidence for obstruction.
Dilation of the abdominal aorta with maximum AP dimension of 3.3 cm. Morphologic appearance of the abdominal aorta compatible with chronic dissection.
Colonic diverticula with no CT evidence for diverticulitis.
Subjective Data
-
Date of Service:
Date of Service: November 30, 2023
Chief Complaint: Pulmonary Follow Up and Dyspnea Follow Up
Subjective:
feels better, out of bed, FiO2 weaned, no chest pain, still with cough, mostly nonproductive, no abdominal pain, leg swelling, improved
Review of Systems
General: Other (Per HPI)
Objective Data
Data Reviewed
Vital Signs / I&O:
Vital Signs
Temp Pulse Resp BP Pulse Ox
97.7 F 91 20 116/51 94
11/30/23 03:44 11/30/23 08:17 11/30/23 08:00 11/30/23 08:17 11/30/23 08:00
Intake and Output
11/29/23 11/30/23 12/01/23
06:59 06:59 06:59
Intake Total 2100 / 2100
Output Total 2975 / 2975 1350 / 1350
Balance -875 / -875 -1350 / -1350
SaO2: 94
Nasal Cannula flow liters per minute: 4
Physical Exam
General: Respiratory Distress (negative), Comfortable and Chills (negative)
HEENT: Normocephalic and Anicteric
Cardiovascular: Regular Rhythm, Murmur (n) and Peripheral Edema (+2 LE pitting edema)
Respiratory: Wheeze (n), Crackles (n), Rhonchi (n), Non-Labored Respirations and Accessory Resp Muscle Use (only during exertional activities)
GI: Soft, Non Distended and Non Tender
Neurology: Awake, Alert and No Motor Deficits
Skin: Warm, Good Color, Cyanosis (n), Jaundice (n), Rash (n) and Other (Mild chronic venous stasis changes)
Labs/Micro/Reports
Lab Data
11/30/23 05:21
Microbiology
11/26/23 17:54 Blood/Venous Blood Culture - Preliminary
No Growth in 72 hours- Final report to follow
11/26/23 17:57 Blood/Venous Blood Culture - Preliminary
No Growth in 72 hours- Final report to follow
11/28/23 20:57 Sputum Respiratory Culture - Final
11/28/23 20:57 Sputum Gram Stain - Final
11/26/23 17:46 Urine Legionella Urinary Antigen - Final
Negative for Legionella pneumophila Serogroup 1 antigen.
A negative result does not rule out the possiblity of
Legionella infection due to other serogroups or species of
Legionella. Clinical correlation is recommended.
11/26/23 17:46 Urine Streptococcus pneumoniae Antigen (M - Final
Negative for Streptococcus pneumoniae antigen.
A negative result does not exclude infection with
Streptococcus pneumoniae. Clinical correlation is
recommended.
[2023-11-30] MEDS: MIRALAX PO ×2 (08:46→20:46)
--- NOTE | 2023-11-30 09:05 | PTCARENOTE ---
Patient received from shift production associate. Patient resting comfortably in the chair. AAO, VSS. No events noted overnight. No complaints of pain. Will attempt to wean O2. Call alcaraz in reach.
[2023-11-30] MEDS: NOVOLOG FLEXPEN 5 UNITS SC ×2 (09:08→12:17)
[2023-11-30] MEDS: NOVOLOG FLEXPEN-MODERATE RESISTANCE 9 UNITS SC (09:13)
--- NOTE | 2023-11-30 10:20 | W.PN.ID1 ---
Date of Service
Date of Service: November 30, 2023
Today's Communication
further improved oxygenation and CXR
no indication to restart antibiotics at this time in my opinion
keytruda, cephalosporin possible causes of eosinophilia in my opinion, I would not rechallenge with a cephalosporin - updated allergy list and dc summary
stable for dc from ID perspective
Assessment / Plan
# Hypereosinophilia - resolved with steroids
# SCC of lung hx XRT; on Carbo/Taxol, Pembrolizumab last received last doses 10/31
# Acute hypoxemic respiratory failure - continued improvement
- O2 requirements further improved, CXR nearly resolved infiltrates, sputum cx negative
- eosinophilia responsive to steroid, steroids per pulmonary
- keytruda, cephalosporin possible causes of eosinophilia in my opinion, I would not rechallenge with a cephalosporin - updated allergy list
- No abx at this time
- stable for dc from ID perspective
#Leukocytosis Resolving - in part due to steroids
# Hypothermia - resolved
# s/p UTI treatment
- repeat blood cultures no growth to date
- UA negative 3/ and 3/4 negative
- sputum culture contaminated
# KATHARINE on CKD
Chief Complaint
-: Leukocytosis, Pneumonia and Other (Eosinophilia)
Subjective / Review of Systems
afebrile
bp stable
down to 4L NC
leukocytosis downtrending
cr stable
no diff done this am
CXR: mild residual interstitial disease, Slight decrease in the prominence of the left paramediastinal soft tissue opacity in the area of previous lung cancer; my read resolved infiltrates
Vital Signs / Physical Exam
Vital Signs
Vital Signs
Temp Pulse Resp BP Pulse Ox
97.4 F 91 20 116/51 94
11/30/23 07:05 11/30/23 08:17 11/30/23 08:00 11/30/23 08:17 11/30/23 08:34
Physical Exam
Constitutional: No Acute Distress and Chronically Ill
Cardiovascular: Regular Rate and S1/S2; Negative Murmur or Rub
Pulmonary: Clear and Symmetric; Negative Wheezes or Rales
Gastrointestinal: Soft, Non Tender, Non Distended and Normal Bowel Sounds
Skin: Warm and Dry; Negative Rash or Jaundice
Objective Data
Lab Data
Lab Results
11/30/23 05:21
11/30/23 08:14
Estimated Creat Clear 33 ml/min 11/30/23 05:21
Lactic Acid 1.1 mmol/L (0.7-2.0) 11/24/23 03:34
Total Bilirubin Cancelled 11/25/23 10:27
AST Cancelled 11/25/23 10:27
ALT Cancelled 11/25/23 10:27
Alkaline Phosphatase Cancelled 11/25/23 10:27
Most recent labs reviewed.
Micro Results:
11/26/23 17:54 Blood Culture - Preliminary
Blood/Venous No Growth in 72 hours- Final report to follow
11/26/23 17:57 Blood Culture - Preliminary
Blood/Venous No Growth in 72 hours- Final report to follow
11/28/23 20:57 Respiratory Culture - Final
Sputum Gram Stain - Final
11/26/23 17:46 Legionella Urinary Antigen - Final
Urine Negative for Legionella pneumophila Serogroup 1 antigen.
A negative result does not rule out the possiblity of
Legionella infection due to other serogroups or species of
Legionella. Clinical correlation is recommended.
Streptococcus pneumoniae Antigen (M - Final
Negative for Streptococcus pneumoniae antigen.
A negative result does not exclude infection with
Streptococcus pneumoniae. Clinical correlation is
recommended.
11/24/23 03:24 Influenza Types A & B (MARY) - Final
Nasal Swab Negative for Influenza A & B, NAAT
Negative results must be combined with clinical observations
and patient history.
Nucleic Acid Amplification test (NAAT)performed on the
[employer] platform.
11/18/23 17:54 Blood Culture - Final
Blood/Venous No Growth - Final Report
11/18/23 17:49 Blood Culture - Final
Blood/Venous No Growth - Final Report
11/18/23 16:54 Urine Culture - Final
Urine Escherichia coli
11/18/23 14:18 Influenza Types A & B (MARY) - Final
Nasal Swab Negative for Influenza A & B, NAAT
Negative results must be combined with clinical observations
and patient history.
Nucleic Acid Amplification test (NAAT)performed on the
[employer] platform.
11/26/23 CT C/A/P: Fairly extensive parenchymal opacity throughout both lungs, mostly a small nodular pattern, although also having a reticulonodular and groundglass pattern.�Small to moderate right pleural effusion with small left pleural
effusion.Dilation of the abdominal aorta with maximum AP dimension of 3.3 cm. Morphologic appearance of the abdominal aorta compatible with chronic dissection.
--- NOTE | 2023-11-30 10:29 | CM ---
Pt oxygen need at 4 liters Pox 94%.
Will need home oxygen test closer to dc if not weaned off.
Maintain steroid taper.
PT OT evals suggest VN. Offered VN he declined need.CM to offer again closer to dc.
PLAN Home no needs . Watch for home oxygen needs
--- NOTE | 2023-11-30 10:29 | W.PN.CARDCBS ---
Today's Communication / Plan
-
Doing better with diuresis. Defer diuresis to nephrology.
New mildly reduced LV ejection fraction and history of heart failure with preserved ejection fraction. We will check a troponin and EKG.
Treatment of possible pneumonitis per hematology and pulmonary
Cont Eliquis for atrial fibrillation, new this admission. ASA stopped and pt kept on Plavix for hx CAD and PAD
Cont Amiodarone and have transition to 200 mg twice daily. For now rate control and anticoagulation for atrial arrhythmia.
Impression / Plan
-
.
PCP: VJ Bro
CDY: Jia Blackburn MD
Impression:
Hypoxic respiratory failure and pulmonary edema with increased O2 requirements
Acute on chronic HFpEF
Increasing leukocytosis, eosinophilia
New atrial fibrillation 11/21/2023; Eliquis started
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
Recent UTI status posttreatment
CAD
urgent CABGx1 KINCAID-LAD (VF/VT arrest) 04/2015
PCI LM and LCx 06/2015
s/p cath with patent KINCAID-LAD and stents, non new occlusive disease 10/22/22
Non-small cell lung cancer status postradiation November 2022 currently on on Carbo/Taxol, Pembrolizumab last received, last dose 10/31
COPD/Emphysema
PVD - fem bypass and [employer] [facility] 2016
CEA B/L 2018
AAA 3.2cm
CDK3a
HTN
HLD
KIM
RBBB
DM2
Former smoker
Echo 10/22/2022�EF 65 to 70%.� Mild MR.� Aortic valve gradients 20/8 mmHg peak/mean consistent with mild aortic valve stenosis.� Trace TR with PA pressure 30 to 35 mmHg
Echo 11/30/2023: �Normal left ventricular size.� Akinesis of the basal inferior wall. � LV�ejection fraction is 50-55% �Mild aortic stenosis. Peak/mean gradients across the aortic valve are 19/10
�mmHg.� The aortic valve by the Continuity equation is calculated at 1.7 cm sq
�Compared to prior study of November 21, 2023, LVEF is visually mildly improved.�
�There is now wall motion abnormality of the inferior basal LV.
-CT chest abdomen pelvis: Extensive bilateral reticulonodular and groundglass opacities suggestive of extensive bilateral pneumonia, atypical for pulmonary edema per radiology. Small to moderate right pleural effusion, left pleural effusion
Plan:
Doing better today. He feels that breathing has improved somewhat. Continue with diuresis per nephrology. Continue to follow renal function which remains fairly stable overall.
New mildly reduced LV ejection fraction and history of heart failure with preserved ejection fraction. We will check a troponin and EKG. Continue to follow.
Continue IV Solu-Medrol started per hematology, concern for Keytruda associated pneumonitis. Pulmonary input appreciated.
Cont Eliquis for atrial fibrillation, new this admission.
ASA stopped and pt kept on Plavix for hx CAD and PAD
Cont Amiodarone and have transition to 200 mg twice daily. For now rate control and anticoagulation for atrial arrhythmia.
Cont Lopressor
TSH 0.45 borderline. Defer further eval TFTs to primary service.
Known AAA with recent CT chest abdomen pelvis reporting chronic abdominal aortic dissection, outpt vascular follow up Dr. Sloan
Coronary artery disease with history of urgent CABG for left main disease and VF/VT arrest in 2014 followed by PCI to left main and circumflex
HPI: He has a complex medical history including VT/VF Cardiac arrest with LM stenosis urgent CABGx1 KINCAID-LAD 04/2015, PCI LM and LCx 06/2015, PAfib, PVD with multiple peripheral interventions including fem bypass, b/l CEA 2018, AAA, HTN, HLD, DM2,
CKD3, RBBB, KIM, COPD/Emphysema and MICHEAL lung CA on chemo/XRT.
Progress Note - [facility]
Subjective
Date of Service: November 30, 2023
Feels breathing is better. Edema noted. No chest pain.
Objective
Labs:
11/30/23 05:21
11/30/23 08:14
Labs
Hgb 8.7 g/dL (13.0-18.0) L 11/30/23 05:21
Hct 26.1 % (39.0-52.0) L 11/30/23 05:21
Plt Count 281 10^3/uL (130-400) 11/30/23 05:21
Sodium 131 mmol/L (135-145) L 11/30/23 05:21
Potassium 5.0 mmol/L (3.5-5.1) 11/30/23 05:21
BUN 82 mg/dl (9-20) H 11/30/23 05:21
Creatinine 2.1 mg/dL (0.7-1.3) H 11/30/23 05:21
Glucose 371 mg/dl (70-99) H 11/30/23 08:14
Vital Signs and I&O:
Vital Signs
Temp Pulse Resp BP Pulse Ox
97.4 F 91 20 116/51 94
11/30/23 07:05 11/30/23 08:17 11/30/23 08:00 11/30/23 08:17 11/30/23 08:34
Vital Signs
Temp Pulse Resp BP Pulse Ox
97.4 F 91 20 116/51 94
11/30/23 07:05 11/30/23 08:17 11/30/23 08:00 11/30/23 08:17 11/30/23 08:34
Intake & Output
11/28/23 11/29/23 11/30/23 12/01/23
06:59 06:59 06:59 06:59
Intake Total 200 / 200 2100 / 2100 240 / 240
Output Total 2145 / 2145 2975 / 2975 1350 / 1350
Balance -1945 / -1945 -875 / -875 -1350 / -1350 240 / 240
Physical Exam
Physical Exam
General: Well developed, well nourished in NAD.
Heart: Non displaced PMI, RRR, no murmurs, No S3, S4, no rubs.
Lungs: Oxygen in place and crackles bilateral.
Extremities: No clubbing, cyanosis +2 edema bilaterally.
Neuro: Grossly nonfocal, awake, alert and oriented x3.
--- NOTE | 2023-11-30 10:40 | W.PN.NEPH.PH ---
Today's Communication / Plan
-
lasix 20mg po BID
Assessment/Plan
-
Assessment
KATHARINE
CKD 3B
Worsening pulmonary edema
Eosinophilia
Recent sepsis
Hyponatremia
Anemia
Diffuse anasarca
Paroxysmal atrial fibrillation
Non-small cell lung cancer
Hypertension
Coronary artery disease
Plan
-patient feels much improved this AM but unfortunately KATHARINE worsening. hold lasix
-CXR reviewed: notes improvement
-will add back lasix 20mg po BID
-follow BMP, Cr at 2.1,uop ~900 cc
-trend CBC
-pulm stated that hypoxemic resp failure is likely multifactorial. continue with methylpred 40mg IV q8h
-hyponatremia persists
-remains high risk situation
-
-
Date of Service: November 30, 2023
CC / HPI / ROS
-
Chief Complaint:
KATHARINE
History of Present Illness:
KATHARINE/Cr unchanged at 2.1
Na down to 131
remains on high O2 requirements
Review of Systems:
SOB on O2
weights down
no CP
Labs
-
Labs:
WBC 15.1 10^3/uL (4.8-10.8) H 11/30/23 05:21
RBC 3.01 10^6/uL (4.70-6.10) L 11/30/23 05:21
Hgb 8.7 g/dL (13.0-18.0) L 11/30/23 05:21
Hct 26.1 % (39.0-52.0) L 11/30/23 05:21
Plt Count 281 10^3/uL (130-400) 11/30/23 05:21
Sodium 131 mmol/L (135-145) L 03/06/24 05:21
Potassium 5.0 mmol/L (3.5-5.1) 11/30/23 05:21
Chloride 96 mmol/L (98-107) L 11/30/23 05:21
Carbon Dioxide 29 mmol/L (22-30) 11/30/23 05:21
BUN 82 mg/dl (9-20) H 11/30/23 05:21
Creatinine 2.1 mg/dL (0.7-1.3) H 11/30/23 05:21
eGFR 30.85 11/30/23 05:21
Glucose 371 mg/dl (70-99) H 11/30/23 08:14
Calcium 8.7 mg/dl (8.4-10.2) 11/30/23 05:21
Lls-K-Dgldnpvcorn Pept 3170 pg/ml 11/26/23 07:45
Albumin Cancelled 11/25/23 10:27
Physical Exam
-
Vital Signs:
Vital Signs
Temp Pulse Resp BP Pulse Ox
97.4 F 91 20 116/51 94
11/30/23 07:05 11/30/23 08:17 11/30/23 08:00 11/30/23 08:17 11/30/23 08:34
Cardiovascular:: Irregular rate and rhythm
Respiratory:: Bilateral: Coarse (decreased breathsounds)
Lung Excursion:: Normal
Abdomen:: Nontender and Soft
Bowel Sounds:: Normal
Extremity Edema:: +2: Bilateral:
Sloan Catheter: No
[2023-11-30 11:52] LABS: Glucose - Point of Care 427 mg/dl (70-99)
[2023-11-30] MEDS: NOVOLOG FLEXPEN-MODERATE RESISTANCE 11 UNITS SC (12:18)
--- NOTE | 2023-11-30 12:25 | PTCARENOTE ---
Patient with another accucheck >400 (427). Hospitalist made aware, instructed to treat accucheck number and not to draw another stat glucose. Increase in meal time coverage ordered.
[2023-11-30 14:17] LABS: Troponin I 0.018 ng/ml
[2023-11-30 17:18] LABS: Glucose - Point of Care 314 mg/dl (70-99)
[2023-11-30] MEDS: METAMUCIL, KONSYL 1 PACKET PO (17:26)
[2023-11-30] MEDS: LASIX 20 MG PO (17:26)
[2023-11-30] MEDS: PLAVIX 75 MG PO (17:28)
[2023-11-30] MEDS: CRESTOR 40 MG PO (17:28)
[2023-11-30] MEDS: NOVOLOG FLEXPEN 9 UNITS SC (17:29)
[2023-11-30] MEDS: NOVOLOG FLEXPEN-HIGH RESISTANCE 10 UNITS SC (17:29)
[2023-11-30] MEDS: TESSALON PERLES 200 MG PO (20:46)
[2023-11-30] MEDS: LANTUS 0.5 UNITS SC (21:17)
[2023-11-30 21:27] LABS: Glucose - Point of Care 331 mg/dl (70-99)
[2023-12-01] VITALS (14 sets, daily range): BP systolic 98–134; BP diastolic 58–95; BMI 30.5
[2023-12-01 04:07] LABS: % Basophils 0.1 % (0-2); % Immature Granulocytes 0.7 % (0-0.5); % Lymphocytes 4.6 % (20.5-51.1); % Monocytes 4.3 % (1.7-9.3); % Neutrophils 90.3 % (42.2-75.2); Absolute Immature Granulocytes 0.1 10^3/uL (0-0.05); Absolute Lymphocytes 0.6 10^3/uL (1.2-3.4); Absolute Monocytes 0.6 10^3/uL (0.1-0.6); Absolute Neutrophils 12.6 10^3/uL (1.4-6.5); Hemoglobin 8.9 g/dL (13.0-18.0); Mean Corpuscular Volume 87.9 fL (80.0-94.0); Mean Platelet Volume 9.6 fL (7.4-10.4); Nucleated Red Blood Cells % 0 % (-); Platelet Count 267 10^3/uL (130-400); Red Blood Cell Count 3.07 10^6/uL (4.70-6.10); Red Cell Dist. Width 15.2 % (11.5-14.5)
[2023-12-01 04:35] LABS: Blood Urea Nitrogen 82 mg/dl (9-20); Carbon Dioxide 30 mmol/L (22-30); Chloride 96 mmol/L (98-107); Estimated Creatinine Clearance 40 ml/min; Glucose 359 mg/dl (70-99); Sodium 134 mmol/L (135-145); eGFR 39.75
--- NOTE | 2023-12-01 06:52 | W.PN.HOSP.TC ---
Today's Communication/Plan
-
Continue to titrate oxygen
Blood sugars remain an issue on his high-dose steroids and will await tapering
Will add glipizide 5 mg twice daily have been taken as outpatient
Increase Lantus insulin to 50 units nightly
AC insulin to 10 units/placed back on high scale
Per cardiology now on amiodarone 200 mg daily continue Eliquis
Assessment / Plan
Assessment / Plan
Physical Exam
General: chronically ill looking but not toxic appearing
HEENT: Moist mucous membranes and
Respiratory: +rales, . oxygen 9L midflow now
Cardiac: S1/S2 irregular irregular, Right upper chest port: not tender or redness in the area
GI: Soft, obese, non tender, +bs
Musculoskeletal: B/L LE edema with erythema with mild improvement
Neuro: AO x 3, followed commands.
Psych: Calm; No agitation.
83 years old male presented with weakness, weight gain and fever for 1 day duration
Assessment and plan
# Sepsis POA ( fever, tachycardia, leukocytosis) due to E Coli complicated UTI
#Leukocytosis likely 2/2 above and G-CSF agents and /steroids/trending down
#HyperEosinophilia now resolved
No recurrent fever. No more dysuria. Dry cough. No diarrhea. No body rash.
No gastrointestinal symptoms.
Blood culture no growth
Urine with E Coli
s/p Meropenem and Cefdinir was stopped 11/25 as completed course of abx. Monitor off antibiotics.
High WBC c/w recent G-CSF he received in October. Steroids
COVID test is negative.� Negative lactic acid.
Check LE doppler negative.
Multiple BM on 11/25.
WBC downtrending
ID following
#Adynamic Ileus
No nausea or vomiting.
Denies abdominal pain or distention
No hiccups
Tolerating diet. MiraLAX started. Will add dulcolax
Enema ordered with good results
# Acute on chronic heart failure with preserved ejection fraction
-Latest echocardiogram 50 to 55% EF with mild wall motion abnormality inferior
losartan stopped due to hypotension
After up titration of furosemide creatinine up to 2.2 now on oral Lasix 20 mg twice daily
ECHO EF 45-50%. Mild .
O2 requirement uptrending
Appreciate cardiology and nephrology input
#Acute hypoxic respiratory failure likely 2/2 AECHF vs. checkpoint inhibitor pneumonitis(per oncology does not fit timetable for this however)
see plan above
Lasix management nephrology
Wean oxygen as tolerated
Started on IV steroids which seemed to have helped symptomatically
CT chest noted discussed with pulmonary
Pulmonary will follow
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
bump in cr likely 2/2 diuretics and hypotension due to afib
bladder scan protocol.
Trend cr. remains hypervolemia.
Creatinine 2 .2. Will continue to monitor.
Nephrology following
#Hyponatremia ?due to overdiuresis
improving.
#Chronic aortic aneurysm
-CT abd/pelvis wtih aortic dissection
-Evaluated by vascular surgery -seems chronic
-follows Dr. Sloan
#Paroxysmal atrial fibrillation with intermittent RVR
Started on amiodarone and now low dose lopressor.
-Transition to amiodarone 200 mg / day today per cardiology
Soft BP is limiting factor for aggressive rate control
Started on Eliquis
# Anemia
likely of chronic disease and chemotherapy related
monitor daily
monitor closely as started on Eliquis.
# Hx of lung cancer
follows with Dr Shin, Office was notified.
Receiving Chemo and G-CSF agents.
Onc eval.
# History of BPH and obstruction.� Monitor for urinary retention.� Ordered a bladder scan
# History of coronary artery disease.� No chest pain. ASA stopped. Plavix continued. started on lopressor.
#Primary hypertension-now with hypotension. losartan stopped. BP improving
#Diabetes mellitus
Poorly controlled. HGB A1C 8.1 but with ongoing chemo Tx.
lantus increased to 50 units and added mealtime NovoLog
Placed back on his twice daily glipizide yesterday
Swtich to moderate -dose ISS/while on steroids
Hyperglycemia due to steroids. Blood sugar 334 this morning
# PVD and carotid artery disease.
DVT ppx-on eliquis now
Full code
Anticipated Discharge: 24 - 48 hours
Subjective/Interval History
-
Date of Service: December 01, 2023
Down to 2 L nasal flow oxygen and restful night minimal cough
Objective Data
-
Labs:
Laboratory Results
12/01/23
03:57
WBC 14.0 H
Hgb 8.9 L
Hct 27.0 L
Plt Count 267
Sodium 134 L
Potassium 5.0
Chloride 96 L
Carbon Dioxide 30
BUN 82 H
Creatinine 1.7 H
Glucose 359 H
Calcium 9.0
Vital Signs:
Vital Signs
Temp Pulse Resp BP Pulse Ox
97.5 F 60 9 127/74 90
12/01/23 04:08 12/01/23 04:00 12/01/23 04:00 12/01/23 04:00 12/01/23 04:00
I&O
11/29/23 11/30/23 12/01/23
06:59 06:59 06:59
Intake Total 2100 / 2100 720 / 720
Output Total 2975 / 2975 1350 / 1350 900 / 900
Balance -875 / -875 -1350 / -1350 -180 / -180
Review of Systems
-
History Source: Patient
Respiratory: Reports Cough
Cardiac: Reports No Symptoms
Abdomen/GI: Reports No Symptoms
Physical Exam
-
General: Well Developed
HEENT: Normocephalic
Cardiac: Irregular Rhythm
GI: Soft
Data Reviewed
-
Total Time Spent with Patient (in minutes): 56
Labs: Labs Reviewed by me (Blood sugars remain markedly elevated due to steroids)
[2023-12-01] MEDS: DUONEB 3 ML INH ×4 (07:54→20:03)
[2023-12-01 08:05] LABS: Glucose - Point of Care 410 mg/dl (70-99)
--- NOTE | 2023-12-01 08:10 | PTCARENOTE ---
Patient continuing with high accuchecks (410), informed hospitalist and was instructed to treat accucheck and not draw stat glucose.
[2023-12-01] MEDS: NOVOLOG FLEXPEN 9 UNITS SC ×2 (08:15→12:19)
[2023-12-01] MEDS: NOVOLOG FLEXPEN-HIGH RESISTANCE 14 UNITS SC (08:16)
[2023-12-01] MEDS: GLUCOTROL 5 MG PO ×2 (08:17→17:27)
[2023-12-01] MEDS: NON-FORMULARY ITEM 1 SPRAY NASAL ×2 (08:50→21:43)
[2023-12-01] MEDS: ELIQUIS 2.5 MG PO ×2 (08:51→19:54)
[2023-12-01] MEDS: LASIX 20 MG PO ×2 (08:52→17:23)
[2023-12-01] MEDS: FLOMAX 0.400000000000000022 MG PO ×2 (08:52→19:55)
[2023-12-01] MEDS: LOPRESSOR 25 MG PO ×2 (08:53→19:54)
[2023-12-01] MEDS: MUCINEX 600 MG PO ×2 (08:54→19:54)
[2023-12-01] MEDS: MIRALAX 17 GRAMS PO ×2 (08:54→19:55)
--- NOTE | 2023-12-01 08:54 | W.PN.ID1 ---
Date of Service
Date of Service: December 01, 2023
Today's Communication
follow up with pcp
Assessment / Plan
# Hypereosinophilia - resolved with steroids
# SCC of lung hx XRT; on Carbo/Taxol, Pembrolizumab last received last doses 2/
# Acute hypoxemic respiratory failure - continued improvement
- O2 requirements further improved today - nearly resolved
- eosinophilia responsive to steroid, steroids per pulmonary
- keytruda, cephalosporin possible causes of eosinophilia in my opinion, I would not rechallenge with a cephalosporin - updated allergy list
- follow up with PCP
#Leukocytosis Resolving - in part due to steroids
# Hypothermia - resolved
# s/p UTI treatment
- repeat blood cultures no growth to date
- UA negative 11/25 and 11/27 negative
# KATHARINE on CKD
- resolving
Chief Complaint
-: Leukocytosis, Pneumonia and Other (Eosinophilia)
Subjective / Review of Systems
afebrile
bp stable
further improving leukocytosis
down to 2L NC
cr further improved
hyperglycemia being managed by primary team
Vital Signs / Physical Exam
Vital Signs
Vital Signs
Temp Pulse Resp BP Pulse Ox
97.7 F 81 16 128/63 95
12/01/23 07:10 12/01/23 07:55 12/01/23 07:55 12/01/23 07:10 12/01/23 07:55
Physical Exam
Constitutional: No Acute Distress and Chronically Ill
Cardiovascular: Regular Rate and S1/S2; Negative Murmur or Rub
Pulmonary: Clear and Symmetric; Negative Wheezes or Rales
Gastrointestinal: Soft, Non Tender, Non Distended and Normal Bowel Sounds
Skin: Warm and Dry; Negative Rash or Jaundice
Objective Data
Lab Data
Lab Results
12/01/23 03:57
12/01/23 03:57
Estimated Creat Clear 40 ml/min 12/01/23 03:57
Lactic Acid 1.1 mmol/L (0.7-2.0) 11/24/23 03:34
Total Bilirubin Cancelled 11/25/23 10:27
AST Cancelled 11/25/23 10:27
ALT Cancelled 11/25/23 10:27
Alkaline Phosphatase Cancelled 11/25/23 10:27
Most recent labs reviewed.
Micro Results:
11/26/23 17:57 Blood Culture - Preliminary
Blood/Venous No Growth in 4 days- Final report to follow
11/26/23 17:54 Blood Culture - Preliminary
Blood/Venous No Growth in 4 days- Final report to follow
11/28/23 20:57 Respiratory Culture - Final
Sputum Gram Stain - Final
11/26/23 17:46 Legionella Urinary Antigen - Final
Urine Negative for Legionella pneumophila Serogroup 1 antigen.
A negative result does not rule out the possiblity of
Legionella infection due to other serogroups or species of
Legionella. Clinical correlation is recommended.
Streptococcus pneumoniae Antigen (M - Final
Negative for Streptococcus pneumoniae antigen.
A negative result does not exclude infection with
Streptococcus pneumoniae. Clinical correlation is
recommended.
11/24/23 03:24 Influenza Types A & B (MARY) - Final
Nasal Swab Negative for Influenza A & B, NAAT
Negative results must be combined with clinical observations
and patient history.
Nucleic Acid Amplification test (NAAT)performed on the
[employer] platform.
11/18/23 17:54 Blood Culture - Final
Blood/Venous No Growth - Final Report
11/18/23 17:49 Blood Culture - Final
Blood/Venous No Growth - Final Report
11/18/23 16:54 Urine Culture - Final
Urine Escherichia coli
11/18/23 14:18 Influenza Types A & B (MARY) - Final
Nasal Swab Negative for Influenza A & B, NAAT
Negative results must be combined with clinical observations
and patient history.
Nucleic Acid Amplification test (NAAT)performed on the
[employer] platform.
11/26/23 CT C/A/P: Fairly extensive parenchymal opacity throughout both lungs, mostly a small nodular pattern, although also having a reticulonodular and groundglass pattern.�Small to moderate right pleural effusion with small left pleural
effusion.Dilation of the abdominal aorta with maximum AP dimension of 3.3 cm. Morphologic appearance of the abdominal aorta compatible with chronic dissection.
[2023-12-01] MEDS: SOLU-MEDROL PF 40 MG IV ×2 (08:55→19:53)
[2023-12-01] MEDS: PACERONE 200 MG PO ×2 (08:55→19:54)
[2023-12-01] MEDS: VITAMIN D3 (cholecalciferol) 100 MCG PO (08:56)
--- NOTE | 2023-12-01 09:00 | PTCARENOTE ---
Patient received from shift commander. Patient resting comfortably in the chair. AAO, VSS. No events noted overnight. No complaints of pain. Will continue to attempt to wean O2. Call alcaraz in reach.
--- NOTE | 2023-12-01 09:54 | W.PN.PUL.V3 ---
Today's Communication / Plan
-
.
Continue diuresis attempts.
Wean FiO2.
Suspect nocturnal hypoxemia may be sleep disorder breathing related-workup as an outpatient.
Assessment discharge supplement the option needs.
Decrease steroids
Assessment
-
Patient is a 83 year old M with complex cardiac history including VT/VF arrest, CAD s/p CABG 04/2015, PCI LM and LCx 06/2015, Afib, PVD with multiple peripheral interventions including fem bypass, b/l CEA 2018, AAA, COPD/Emphysema, squamous cell lung
cancer left upper lobe status post radiation/chemotherapy 10/31/2023, now presents with increased shortness of breath x 5 days, weight gain, lower extremity swelling, fever. We are asked to comment on pulmonary status 11/19, and we are now asked to
comment given his continued high oxygen requirements on 11/27/2023.
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
Suspected acute heart failure
Preserved ejection fraction
Hypereosinophilia-resolved with steroids
Leukocytosis
UTI due to E. coli
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
Status post SBRT - November 2022
Progression via PET in 07/2023 s/p chemoimmunotherapy on 10/31/2023 with Keytruda and carbo/taxol
Conditions present prior to admission
AFib
CAD s/p CABG KINCAID-LAD 04/2015
PCI LM and LCX 06/2015
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
Former smoker
HTN
Hypercholesterolemia
NIDDM
BPH
RBBB
PVD s/p vein stripping, Fem bypass 2019
b/l CEA 2018
Chronic kidney disease
History of aortic aneurysm
�
Plan:
Pulmonary believes his continues hypoxemic respiratory failure is multifactorial from acute hypervolemia, pneumonia and ICI-pneumonitis, although that usually occurs ~3 months after receiving Keytruda but it is not impossible to occur sooner..
Respiratory status continues to improve-FiO2 now weaned to 2 L-he does not have home oxygen-has required increase FiO2 at night-suspect some sleep disorder breathing
Will need to assess discharge supplemental oxygen needs at the time of discharge-told patient he might require temporary oxygen at home
Methylprednisolone 40 mg IV every 8 hours continues-will begin to decrease
Nebulizers if needed-currently not bronchospastic
Aspiration precautions
Tessalon pearls as needed
Chest x-ray 11/30/2023-improved aeration with mild residual interstitial and airspace disease, slight decrease in prominence of left paramediastinal soft tissue opacification
Continue diuresis attempts
Follow renal function, electrolytes, intake/output, lower extremity edema and weight
Continue to replace electrolytes as needed
Oncology following-correspondence reviewed-feel iatrogenic pneumonitis secondary to Keytruda or Paclitaxel
Nephrology following-correspondence reviewed.
Lasix per nephrology-on hold
Cardiology following-correspondence reviewed.-Continue Eliquis and amiodarone
Cultures reviewed
Last dose of antibiotics was on 11/25/2023 (cefdinir from 11/20 - 11/24; s/p meropenem 11/20 - 11/21/23; IV vanco x 2 doses from 11/18 - 11/19/23; also Invanz x1 dose on 11/18/23
His urine cultures were suggestive of UTI (E. coli R to cipro and levaquin)
Infectious disease following-correspondence reviewed
Follow blood sugar
Insulin supplementation as needed
DVT prophylaxis-on Eliquis
Follow-up with Dr. Melgar as previously scheduled-also check for sleep apnea
Diagnostic Data
PFTs 09/02/21: FEV1 2.62L 89%, FVC 4.08L 99%, ratio 64. TLC 6.65L 92%, DLCO 46% (mild obstruction, normal volumes, moderate diffusion impairment)
CT Chest/Abd/Pelvis without contrast 11-26-2023:�
Fairly extensive parenchymal opacity throughout both lungs, mostly a small nodular pattern, although also having a reticulonodular and groundglass pattern. The morphologic appearance is most suggestive of extensive bilateral pneumonia. This could
represent pulmonary edema, but somewhat atypical distribution with some regions of relative sparing. Based on imaging findings alone, this could represent lymphangitic spread of carcinoma, but felt to be unlikely based on its relatively fast
appearance radiographically.
Small to moderate right pleural effusion with small left pleural effusion.
No evidence for acute abnormality within the abdomen or pelvis. There is a small left inguinal hernia, with a portion of the colon protruding into the base of this small hernia, with no evidence for obstruction.
Dilation of the abdominal aorta with maximum AP dimension of 3.3 cm. Morphologic appearance of the abdominal aorta compatible with chronic dissection.
Colonic diverticula with no CT evidence for diverticulitis.
Subjective Data
-
Date of Service:
Date of Service: December 01, 2023
Chief Complaint: Pulmonary Follow Up and Dyspnea Follow Up
Subjective:
Nursing reports some desaturations at nighttime, no obvious snoring, oxygen being weaned, no chest pain or abdominal pain
Review of Systems
General: Other ( per HPI)
Objective Data
Data Reviewed
Vital Signs / I&O:
Vital Signs
Temp Pulse Resp BP Pulse Ox
97.7 F 84 17 108/95 94
12/01/23 07:10 12/01/23 09:32 12/01/23 09:32 12/01/23 09:32 12/01/23 09:32
Intake and Output
11/30/23 12/01/23 12/02/23
06:59 06:59 06:59
Intake Total 720 / 720
Output Total 1350 / 1350 900 / 900 430 / 430
Balance -1350 / -1350 -180 / -180 -430 / -430
SaO2: 94
Nasal Cannula flow liters per minute: 2
Physical Exam
General: Respiratory Distress (negative), Comfortable and Chills (negative)
HEENT: Normocephalic and Anicteric
Cardiovascular: Regular Rhythm, Murmur (n) and Peripheral Edema (+2 LE pitting edema)
Respiratory: Wheeze (n), Crackles (n), Rhonchi (n), Non-Labored Respirations and Accessory Resp Muscle Use (only during exertional activities)
GI: Soft, Non Distended and Non Tender
Neurology: Awake, Alert and No Motor Deficits
Skin: Warm, Good Color, Cyanosis (n), Jaundice (n), Rash (n) and Other (Mild chronic venous stasis changes)
Labs/Micro/Reports
Lab Data
12/01/23 03:57
12/01/23 03:57
Microbiology
11/26/23 17:57 Blood/Venous Blood Culture - Preliminary
No Growth in 4 days- Final report to follow
11/26/23 17:54 Blood/Venous Blood Culture - Preliminary
No Growth in 4 days- Final report to follow
11/28/23 20:57 Sputum Respiratory Culture - Final
11/28/23 20:57 Sputum Gram Stain - Final
--- NOTE | 2023-12-01 10:02 | W.PN.NEPH.PH ---
Today's Communication / Plan
-
sign off
maintain outpatient lasix, if edema recurs can increase to 40 mg twice daily
Assessment/Plan
-
Assessment
KATHARINE
CKD 3B
Worsening pulmonary edema
Eosinophilia
Recent sepsis
Hyponatremia
Anemia
Diffuse anasarca
Paroxysmal atrial fibrillation
Non-small cell lung cancer
Hypertension
Coronary artery disease
Plan
-patient feels much improved and creatinine improving to 1.7 baseline
-CXR reviewed: notes improvement
-addedback lasix 20mg po BID , this can be escalated to 40 p.o. twice daily if edema or increase of
-pulmonary stated that hypoxemic resp failure is likely multifactorial. continue with methylpred 40mg IV q8h
-hyponatremia improved
-we will sign off
-
-
Date of Service: December 01, 2023
CC / HPI / ROS
-
Chief Complaint:
KATHARINE
History of Present Illness:
KATHARINE/Cr improved to 1.7
Na up to 134
remains on high O2 requirements
Review of Systems:
SOB on O2
weights down
no CP
Labs
-
Labs:
WBC 14.0 10^3/uL (4.8-10.8) H 12/01/23 03:57
RBC 3.07 10^6/uL (4.70-6.10) L 12/01/23 03:57
Hgb 8.9 g/dL (13.0-18.0) L 12/01/23 03:57
Hct 27.0 % (39.0-52.0) L 12/01/23 03:57
Plt Count 267 10^3/uL (130-400) 12/01/23 03:57
Sodium 134 mmol/L (135-145) L 12/01/23 03:57
Potassium 5.0 mmol/L (3.5-5.1) 12/01/23 03:57
Chloride 96 mmol/L (98-107) L 12/01/23 03:57
Carbon Dioxide 30 mmol/L (22-30) 12/01/23 03:57
BUN 82 mg/dl (9-20) H 12/01/23 03:57
Creatinine 1.7 mg/dL (0.7-1.3) H 12/01/23 03:57
eGFR 39.75 12/01/23 03:57
Glucose 359 mg/dl (70-99) H 12/01/23 03:57
Calcium 9.0 mg/dl (8.4-10.2) 12/01/23 03:57
Plo-U-Nckjhopcjus Pept 3170 pg/ml 11/26/23 07:45
Albumin Cancelled 11/25/23 10:27
Physical Exam
-
Vital Signs:
Vital Signs
Temp Pulse Resp BP Pulse Ox
97.7 F 84 17 108/95 94
12/01/23 07:10 12/01/23 09:32 12/01/23 09:32 12/01/23 09:32 12/01/23 09:54
Cardiovascular:: Regular rate and rhythm
Respiratory:: Bilateral: Coarse
Lung Excursion:: Normal
Abdomen:: Nontender
Bowel Sounds:: Normal
Extremity Edema:: +1: Bilateral:
Sloan Catheter: No
--- NOTE | 2023-12-01 11:02 | W.PN.ONC ---
Addendum entered and electronically signed by Last Velásquez DO 12/01/23 13:41:
Chart reviewed and patient examined independently. Agree with the interval history, physical exam, impression and plan as outlined by VJ. Patient has appreciated significant improvement in respiratory status. Continue supportive care and
steroid therapy. Patient will need physical therapy with this particular attention to proximal muscle weakness which can be exacerbated by steroid use. Return to the office to discuss additional systemic therapy.
Original Note:
Today's Communication / Plan
-
Clinical picture concerning for pneumonitis from cancer treatment, either from Keytruda or Taxol, though occurred surprisingly quickly after first treatment
Improving on steroids which were initiated 11/26/23
Continue steroids and wean oxygen as able
PT/OT, supportive care
Further cancer treatment to be considered based on recovery.
Would be hesitant to rechallenge with Keytruda or Taxol. Patient verbalizes understanding
Office has been updated of patients clinical status.
We will follow.
Impression
Impression
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
Non-small cell lung cancer, disease progression in lung and hilar node s/p radiation (11/2022)
Chemotherapy: Carbo/Taxol, Pembrolizumab last received 10/31/23 (first treatment)
Leukocytosis (s/p GCS-F Rolvedon 11/01/23) (resolving)
Hypoxic respiratory failure
Acute on chronic heart failure
Atrial fibrillation, new
Lower extremity edema
Fevers (resolved)
Hypotension
Subjective/Objective
Subjective/Objective
Patient is out of bed to the chair. He states he is feeling much better and requiring less oxygen.
Vital Signs:
Vital Signs
Temp Pulse Resp BP Pulse Ox
97.7 F 84 17 108/95 94
12/01/23 07:10 12/01/23 09:32 12/01/23 09:32 12/01/23 09:32 12/01/23 09:54
physical exam:
aaox3, pleasant/cooperative, pallor
HRR, lungs diminished/clear on 2L nasal cannula
+1/+2 pitting edema to bilateral LE with discoloration
Lab Results:
Laboratory Data
WBC 14.0 10^3/uL (4.8-10.8) H 12/01/23 03:57
Hgb 8.9 g/dL (13.0-18.0) L 12/01/23 03:57
Plt Count 267 10^3/uL (130-400) 12/01/23 03:57
eGFR 39.75 12/01/23 03:57
11/30/23 CXR: Improved aeration of the lungs, with mild residual interstitial and airspace disease. There is persistent basilar atelectasis and pleural effusion left greater than right.Slight decrease in the prominence of the left paramediastinal soft
tissue opacity in the area of previous lung cancer.
[2023-12-01 12:14] LABS: Glucose - Point of Care 338 mg/dl (70-99)
[2023-12-01] MEDS: NOVOLOG FLEXPEN-HIGH RESISTANCE 10 UNITS SC (12:20)
--- NOTE | 2023-12-01 14:56 | W.PN.CARDCBS ---
Today's Communication / Plan
-
Continue diuretic as noted by nephrology. Agree.
Continue oral anticoagulation.
Continue amiodarone 200 mg twice daily with decrease to daily dosing at the 1 month bianca.
We will make follow-up arrangements.
We will sign off.
Impression / Plan
-
.
PCP: VJ Bro
CDY: Jia Blackburn MD
Impression:
Hypoxic respiratory failure and pulmonary edema with increased O2 requirements
Acute on chronic HFpEF
Increasing leukocytosis, eosinophilia
New atrial fibrillation 11/21/2023; Eliquis started
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
Recent UTI status posttreatment
CAD
urgent CABGx1 KINCAID-LAD (VF/VT arrest) 04/2015
PCI LM and LCx 06/2015
s/p cath with patent KINCAID-LAD and stents, non new occlusive disease 10/22/22
Non-small cell lung cancer status postradiation November 2022 currently on on Carbo/Taxol, Pembrolizumab last received, last dose 10/31
COPD/Emphysema
PVD - fem bypass and OTR [employer] L[employer] 2016
CEA B/L 2018
AAA 3.2cm
CDK3a
HTN
HLD
KIM
RBBB
DM2
Former smoker
Echo 10/22/2022�EF 65 to 70%.� Mild MR.� Aortic valve gradients 20/8 mmHg peak/mean consistent with mild aortic valve stenosis.� Trace TR with PA pressure 30 to 35 mmHg
Echo 11/30/2023: �Normal left ventricular size.� Akinesis of the basal inferior wall. � LV�ejection fraction is 50-55% �Mild aortic stenosis. Peak/mean gradients across the aortic valve are 19/10
�mmHg.� The aortic valve by the Continuity equation is calculated at 1.7 cm sq
�Compared to prior study of November 21, 2023, LVEF is visually mildly improved.�
�There is now wall motion abnormality of the inferior basal LV.
-CT chest abdomen pelvis: Extensive bilateral reticulonodular and groundglass opacities suggestive of extensive bilateral pneumonia, atypical for pulmonary edema per radiology. Small to moderate right pleural effusion, left pleural effusion
Plan:
Doing better today. He is down to 2 L of oxygen and looks better overall. Nephrology made recommendations regarding oral diuretic treatment. Agree.
On most recent echocardiogram mild wall motion abnormality without chest discomfort and looks like scar. Compared visually to 2022. Consider ischemic assessment as an outpatient.
Continue IV Solu-Medrol started per hematology, concern for Keytruda associated pneumonitis. Pulmonary also following.
Cont Eliquis for atrial fibrillation, new this admission.
ASA stopped and pt kept on Plavix for hx CAD and PAD given prior left main stent.
Cont Amiodarone and have transition to 200 mg twice daily. For now rate control and anticoagulation for atrial arrhythmia. Reassess as an outpatient. Heart rate stable.
Cont Lopressor.
TSH 0.45 borderline. Defer further eval TFTs to primary service.
Known AAA with recent CT chest abdomen pelvis reporting chronic abdominal aortic dissection, outpt vascular follow up Dr. Sloan
Coronary artery disease with history of urgent CABG for left main disease and VF/VT arrest in 2014 followed by PCI to left main and circumflex
The patient continues to improve from a cardiovascular point of view. We will sign off. Please reconsult us if new issues develop.
HPI: He has a complex medical history including VT/VF Cardiac arrest with LM stenosis urgent CABGx1 KINCAID-LAD 04/2015, PCI LM and LCx 06/2015, PAfib, PVD with multiple peripheral interventions including fem bypass, b/l CEA 2018, AAA, HTN, HLD, DM2,
CKD3, RBBB, KIM, COPD/Emphysema and MICHEAL lung CA on chemo/XRT.
Progress Note - Ultrasound Specialist
Subjective
Date of Service: December 01, 2023
He is feeling better overall. Edema has improved. Breathing is improving.
Objective
Labs:
12/01/23 03:57
12/01/23 03:57
Labs
Hgb 8.9 g/dL (13.0-18.0) L 12/01/23 03:57
Hct 27.0 % (39.0-52.0) L 12/01/23 03:57
Plt Count 267 10^3/uL (130-400) 12/01/23 03:57
Sodium 134 mmol/L (135-145) L 12/01/23 03:57
Potassium 5.0 mmol/L (3.5-5.1) 12/01/23 03:57
BUN 82 mg/dl (9-20) H 12/01/23 03:57
Creatinine 1.7 mg/dL (0.7-1.3) H 12/01/23 03:57
Glucose 359 mg/dl (70-99) H 12/01/23 03:57
Troponins
11/30/23
13:33
Troponin I 0.018
Vital Signs and I&O:
Vital Signs
Temp Pulse Resp BP Pulse Ox
97.7 F 88 16 115/60 95
12/01/23 07:10 12/01/23 11:14 12/01/23 11:14 12/01/23 08:55 12/01/23 13:37
Vital Signs
Temp Pulse Resp BP Pulse Ox
97.7 F 88 16 115/60 95
12/01/23 07:10 12/01/23 11:14 12/01/23 11:14 12/01/23 08:55 12/01/23 13:37
Intake & Output
11/29/23 11/30/23 12/01/23 12/02/23
06:59 06:59 06:59 06:59
Intake Total 2100 / 2100 720 / 720
Output Total 2975 / 2975 1350 / 1350 900 / 900 430 / 430
Balance -875 / -875 -1350 / -1350 -180 / -180 -430 / -430
Physical Exam
Physical Exam
General: Well developed, well nourished in NAD.
Heart: Irregularly irregular, no murmurs, No S3, S4, no rubs.
Lungs: Coarse breath sounds bilaterally decreased at the bases
Extremities: No clubbing, cyanosis trace to +1 edema left
Neuro: Grossly nonfocal, awake, alert and oriented x3.
[2023-12-01 17:06] LABS: Glucose - Point of Care 129 mg/dl (70-99)
[2023-12-01] MEDS: METAMUCIL, KONSYL 1 PACKET PO (17:19)
[2023-12-01] MEDS: CRESTOR 40 MG PO (17:26)
[2023-12-01] MEDS: NOVOLOG FLEXPEN-HIGH RESISTANCE SC (17:27)
[2023-12-01] MEDS: PLAVIX 75 MG PO (17:27)
[2023-12-01] MEDS: NOVOLOG FLEXPEN 6 UNITS SC (17:30)
[2023-12-01] MEDS: NOVOLOG FLEXPEN SC (18:23)
[2023-12-01 21:36] LABS: Glucose - Point of Care 238 mg/dl (70-99)
[2023-12-01] MEDS: LANTUS 0.5 UNITS SC (21:44)
[2023-12-02] VITALS (16 sets, daily range): BP systolic 71–146; BP diastolic 40–79; PULSE 68; O2SAT 98; BMI 30.4
[2023-12-02 04:52] LABS: % Basophils 0.1 % (0-2); % Immature Granulocytes 1.1 % (0-0.5); % Lymphocytes 4.5 % (20.5-51.1); % Monocytes 4.9 % (1.7-9.3); % Neutrophils 89.4 % (42.2-75.2); Absolute Immature Granulocytes 0.2 10^3/uL (0-0.05); Absolute Lymphocytes 0.6 10^3/uL (1.2-3.4); Absolute Monocytes 0.7 10^3/uL (0.1-0.6); Absolute Neutrophils 12.7 10^3/uL (1.4-6.5); Hemoglobin 8.7 g/dL (13.0-18.0); Mean Corp Hgb Conc. 32.2 g/dL (33.0-37.0); Mean Corpuscular Hgb 28.6 pg (27.0-31.0); Mean Corpuscular Volume 88.8 fL (80.0-94.0); Mean Platelet Volume 9.3 fL (7.4-10.4); Nucleated Red Blood Cells % 0 % (-); Platelet Count 267 10^3/uL (130-400); Red Blood Cell Count 3.04 10^6/uL (4.70-6.10); Red Cell Dist. Width 15.4 % (11.5-14.5); White Blood Cell Count 14.2 10^3/uL (4.8-10.8)
[2023-12-02 05:17] LABS: Blood Urea Nitrogen 75 mg/dl (9-20); Carbon Dioxide 32 mmol/L (22-30); Chloride 98 mmol/L (98-107); Estimated Creatinine Clearance 38 ml/min; Glucose 271 mg/dl (70-99); Sodium 134 mmol/L (135-145); eGFR 37.12
--- NOTE | 2023-12-02 06:57 | W.PN.HOSP.TC ---
Today's Communication/Plan
-
Await further steroid taper as per pulmonary
Once on oral taper can have home oxygen screen
Will need home VNA
Amiodarone to continue at 200 mg twice daily for the next month and then single dose daily and cardiology follow-up
Continue Eliquis
As steroid is tapered will reduce long-acting insulin and discontinue mealtime continue glipizide
Assessment / Plan
Assessment / Plan
Physical Exam
General: chronically ill looking but not toxic appearing
HEENT: Moist mucous membranes and
Respiratory: +rales, . oxygen 9L midflow now
Cardiac: S1/S2 irregular irregular, Right upper chest port: not tender or redness in the area
GI: Soft, obese, non tender, +bs
Musculoskeletal: B/L LE edema with erythema with mild improvement
Neuro: AO x 3, followed commands.
Psych: Calm; No agitation.
83 years old male presented with weakness, weight gain and fever for 1 day duration
Assessment and plan
# Sepsis POA ( fever, tachycardia, leukocytosis) due to E Coli complicated UTI
#Leukocytosis likely 2/2 above and G-CSF agents and /steroids/trending down
#HyperEosinophilia now resolved
No recurrent fever. No more dysuria. Dry cough. No diarrhea. No body rash.
No gastrointestinal symptoms.
Blood culture no growth
Urine with E Coli
s/p Meropenem and Cefdinir was stopped 11/25 as completed course of abx. Monitor off antibiotics.
High WBC c/w recent G-CSF he received in October. Steroids
COVID test is negative.� Negative lactic acid.
Check LE doppler negative.
Multiple BM on 11/25.
WBC downtrending
ID following
#Adynamic Ileus
No nausea or vomiting.
Denies abdominal pain or distention
No hiccups
Tolerating diet. MiraLAX started. Will add dulcolax
Enema ordered with good results
# Acute on chronic heart failure with preserved ejection fraction
-Latest echocardiogram 50 to 55% EF with mild wall motion abnormality inferior
losartan stopped due to hypotension
After up titration of furosemide creatinine up to 2.2 now on oral Lasix 20 mg twice daily
ECHO EF 45-50%. Mild .
O2 requirement uptrending
Appreciate cardiology and nephrology input
#Acute hypoxic respiratory failure likely 2/2 AECHF vs. checkpoint inhibitor pneumonitis(per oncology does not fit timetable for this however)
see plan above
Lasix management nephrology
Wean oxygen as tolerated
Started on IV steroids which seemed to have helped symptomatically/slowly being tapered still on Solu-Medrol 40 mg every 12
-Once can transition to an oral steroid taper will need home oxygen screen
CT chest noted discussed with pulmonary
Pulmonary will follow
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
bump in cr likely 2/2 diuretics and hypotension due to afib
bladder scan protocol.
Trend cr. remains hypervolemia.
Creatinine 2 .2. Will continue to monitor.
Nephrology following
#Hyponatremia ?due to overdiuresis
improving.
#Chronic aortic aneurysm
-CT abd/pelvis wtih aortic dissection
-Evaluated by vascular surgery -seems chronic
-follows Dr. Sloan
#Paroxysmal atrial fibrillation with intermittent RVR >> now in sinus rhythm
Started on amiodarone and now low dose lopressor.
-Transition to amiodarone 200 mg p.o. twice daily for 1 month and then single dose daily cardiology to follow as outpatient
Soft BP is limiting factor for aggressive rate control
Started on Eliquis
# Anemia
likely of chronic disease and chemotherapy related
monitor daily
monitor closely as started on Eliquis.
# Hx of lung cancer
follows with Dr Shin, Office was notified.
Receiving Chemo and G-CSF agents.
Onc eval.
# History of BPH and obstruction.� Monitor for urinary retention.� Ordered a bladder scan
# History of coronary artery disease.� No chest pain. ASA stopped. Plavix continued. started on lopressor.
#Primary hypertension-now with hypotension. losartan stopped. BP improving
#Diabetes mellitus
Poorly controlled. HGB A1C 8.1 but with ongoing chemo Tx.
lantus increased to 50 units and added mealtime NovoLog
Placed back on his twice daily glipizide yesterday
Swtich to moderate -dose ISS/while on steroids
Hyperglycemia due to steroids. Blood sugar 334 this morning
Will reduce Lantus insulin and probably discontinue mealtime insulin at time of discharge if can reduce steroids on taper
# PVD and carotid artery disease.
DVT ppx-on eliquis now
Full code
Anticipated Discharge: Within 24 hours
Subjective/Interval History
-
Date of Service: December 02, 2023
Restful night remains on 2 L nasal flow oxygen no respiratory distress adequate diuresis
Objective Data
-
Labs:
Laboratory Results
12/02/23
04:20
WBC 14.2 H
Hgb 8.7 L
Hct 27.0 L
Plt Count 267
Sodium 134 L
Potassium 5.0
Chloride 98
Carbon Dioxide 32 H
BUN 75 H
Creatinine 1.8 H
Glucose 271 H
Calcium 9.0
Vital Signs:
Vital Signs
Temp Pulse Resp BP Pulse Ox
97.7 F 78 15 146/64 96
12/02/23 03:00 12/02/23 06:00 12/02/23 06:00 12/02/23 06:00 12/02/23 06:00
I&O
11/30/23 12/01/23 12/02/23
06:59 06:59 06:59
Intake Total 720 / 720 1260 / 1260
Output Total 1350 / 1350 900 / 900 1585 / 1585
Balance -1350 / -1350 -180 / -180 -325 / -325
Review of Systems
-
History Source: Patient
Constitutional: Reports No Symptoms and Weakness
Respiratory: Reports Cough
Cardiac: Reports No Symptoms
Physical Exam
-
General: Well Developed
HEENT: Normocephalic
Respiratory: Crackles
Cardiac: Regular Rhythm and S1/S2 (Presently in sinus rhythm)
GI: Soft, Nontender and Nondistended
Neuro: Awake, Alert, Oriented and AO x 3
Psych: Calm
Data Reviewed
-
Total Time Spent with Patient (in minutes): 45
Labs: Labs Reviewed by me (Leukocytosis is stable at 14/presumed in relation to continued steroid effect/creatinine 1.8)
[2023-12-02] MEDS: DUONEB 3 ML INH ×4 (07:33→20:35)
--- NOTE | 2023-12-02 08:10 | W.PN.PUL.V3 ---
Today's Communication / Plan
-
Change methylprednisolone to prednisone
Continue to wean oxygen
Diuresis as tolerated
Assessment
-
Patient is a 83 year old M with complex cardiac history including VT/VF arrest, CAD s/p CABG 04/2015, PCI LM and LCx 06/2015, Afib, PVD with multiple peripheral interventions including fem bypass, b/l CEA 2018, AAA, COPD/Emphysema, squamous cell lung
cancer left upper lobe status post radiation/chemotherapy 10/31/2023, now presents with increased shortness of breath x 5 days, weight gain, lower extremity swelling, fever. We are asked to comment on pulmonary status 11/19, and we are now asked to
comment given his continued high oxygen requirements on 11/27/2023.
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
Suspected acute heart failure
Preserved ejection fraction
Hypereosinophilia-resolved with steroids
Leukocytosis
UTI due to E. coli
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
Status post SBRT - November 2022
Progression via PET in 07/2023 s/p chemoimmunotherapy on 10/31/2023 with Keytruda and carbo/taxol
Conditions present prior to admission
AFib
CAD s/p CABG KINCAID-LAD 04/2015
PCI LM and LCX 06/2015
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
Former smoker
HTN
Hypercholesterolemia
NIDDM
BPH
RBBB
PVD s/p vein stripping, Fem bypass 2019
b/l CEA 2018
Chronic kidney disease
History of aortic aneurysm
�
Plan:
Pulmonary believes his continues hypoxemic respiratory failure is multifactorial from acute hypervolemia, pneumonia and ICI-pneumonitis, although that usually occurs ~3 months after receiving Keytruda but it is not impossible to occur sooner..
Respiratory status continues to improve-FiO2 now weaned to 2 L-he does not have home oxygen-has required increase FiO2 at night-suspect some sleep disorder breathing
Will need to assess discharge supplemental oxygen needs at the time of discharge-told patient he might require temporary oxygen at home
Change methylprednisolone to prednisone 40 mg with slow taper
Nebulizers if needed-currently not bronchospastic
Aspiration precautions
Tessalon pearls as needed
Chest x-ray 11/30/2023-improved aeration with mild residual interstitial and airspace disease, slight decrease in prominence of left paramediastinal soft tissue opacification
Diuresis continues as tolerated
Monitor renal function, electrolytes, intake/output, lower extremity edema and weight
Continue to replace electrolytes as needed
Oncology following-correspondence reviewed-feel iatrogenic pneumonitis secondary to Keytruda or Paclitaxel
Nephrology following-correspondence reviewed.
Lasix per nephrology-on hold
Cardiology following-correspondence reviewed.-Continue Eliquis and amiodarone
Cultures reviewed
Last dose of antibiotics was on 11/25/2023 (cefdinir from 11/20 - 11/24; s/p meropenem 11/20 - 11/21/23; IV vanco x 2 doses from 11/18 - 11/19/23; also Invanz x1 dose on 11/18/23
His urine cultures were suggestive of UTI (E. coli R to cipro and levaquin)
Infectious disease following-correspondence reviewed
Monitor blood sugar
Insulin supplementation as needed
DVT prophylaxis-on Eliquis
Follow-up with Dr. Melgar as previously scheduled-also check for sleep apnea
Diagnostic Data
PFTs 09/02/21: FEV1 2.62L 89%, FVC 4.08L 99%, ratio 64. TLC 6.65L 92%, DLCO 46% (mild obstruction, normal volumes, moderate diffusion impairment)
CT Chest/Abd/Pelvis without contrast 11-26-2023:�
Fairly extensive parenchymal opacity throughout both lungs, mostly a small nodular pattern, although also having a reticulonodular and groundglass pattern. The morphologic appearance is most suggestive of extensive bilateral pneumonia. This could
represent pulmonary edema, but somewhat atypical distribution with some regions of relative sparing. Based on imaging findings alone, this could represent lymphangitic spread of carcinoma, but felt to be unlikely based on its relatively fast
appearance radiographically.
Small to moderate right pleural effusion with small left pleural effusion.
No evidence for acute abnormality within the abdomen or pelvis. There is a small left inguinal hernia, with a portion of the colon protruding into the base of this small hernia, with no evidence for obstruction.
Dilation of the abdominal aorta with maximum AP dimension of 3.3 cm. Morphologic appearance of the abdominal aorta compatible with chronic dissection.
Colonic diverticula with no CT evidence for diverticulitis.
Subjective Data
-
Date of Service:
Date of Service: December 02, 2023
Chief Complaint: Pulmonary Follow Up and Dyspnea Follow Up
Subjective:
Feeling better daily, no increase shortness of breath, no increased FiO2 requirements, no chest pain, productive cough, abdominal pain and leg swelling improved
Review of Systems
General: Other (Per HPI)
Objective Data
Data Reviewed
Vital Signs / I&O:
Vital Signs
Temp Pulse Resp BP Pulse Ox
97.6 F 86 16 146/64 97
12/02/23 07:50 12/02/23 07:33 12/02/23 07:33 12/02/23 06:00 12/02/23 07:33
Intake and Output
12/01/23 12/02/23 12/03/23
06:59 06:59 06:59
Intake Total 720 / 720 1260 / 1260
Output Total 900 / 900 1585 / 1585
Balance -180 / -180 -325 / -325
SaO2: 97
Nasal Cannula flow liters per minute: 2
Physical Exam
General: Respiratory Distress (negative), Comfortable and Chills (negative)
HEENT: Normocephalic and Anicteric
Cardiovascular: Regular Rhythm, Murmur (n) and Peripheral Edema (+2 LE pitting edema)
Respiratory: Wheeze (n), Crackles (n), Rhonchi (n), Non-Labored Respirations and Accessory Resp Muscle Use (only during exertional activities)
GI: Soft, Non Distended and Non Tender
Neurology: Awake, Alert and No Motor Deficits
Skin: Warm, Good Color, Cyanosis (n), Jaundice (n), Rash (n) and Other (Mild chronic venous stasis changes)
Labs/Micro/Reports
Lab Data
12/02/23 04:20
12/02/23 04:20
Microbiology
11/26/23 17:54 Blood/Venous Blood Culture - Final
No Growth - Final Report
11/26/23 17:57 Blood/Venous Blood Culture - Final
No Growth - Final Report
11/28/23 20:57 Sputum Respiratory Culture - Final
11/28/23 20:57 Sputum Gram Stain - Final
[2023-12-02 08:31] LABS: Glucose - Point of Care 241 mg/dl (70-99)
[2023-12-02] MEDS: NOVOLOG FLEXPEN-HIGH RESISTANCE 4 UNITS SC (08:50)
[2023-12-02] MEDS: NOVOLOG FLEXPEN 6 UNITS SC ×3 (08:51→17:07)
[2023-12-02] MEDS: FLOMAX 0.400000000000000022 MG PO ×2 (08:53→20:05)
[2023-12-02] MEDS: GLUCOTROL 5 MG PO ×2 (08:53→16:03)
[2023-12-02] MEDS: VITAMIN D3 (cholecalciferol) 100 MCG PO (08:53)
[2023-12-02] MEDS: LOPRESSOR 25 MG PO ×2 (08:54→20:05)
[2023-12-02] MEDS: MUCINEX 600 MG PO ×2 (08:54→20:05)
[2023-12-02] MEDS: LASIX 20 MG PO ×2 (08:54→16:02)
[2023-12-02] MEDS: ELIQUIS 2.5 MG PO ×2 (08:56→20:05)
[2023-12-02] MEDS: MIRALAX 17 GRAMS PO ×2 (08:57→20:06)
[2023-12-02] MEDS: NON-FORMULARY ITEM 1 SPRAY NASAL ×2 (08:58→20:05)
[2023-12-02] MEDS: PACERONE 200 MG PO ×2 (08:59→20:05)
[2023-12-02] MEDS: SOLU-MEDROL PF 40 MG IV ×2 (08:59→20:06)
--- NOTE | 2023-12-02 09:36 | W.PN.ID1 ---
Date of Service
Date of Service: December 02, 2023
Today's Communication
ID service will no longer actively follow this patient please recall for further questions
Assessment / Plan
# Hypereosinophilia - resolved with steroids
# SCC of lung hx XRT; on Carbo/Taxol, Pembrolizumab last received last doses 2/
# Acute hypoxemic respiratory failure - continued improvement
- O2 requirements further improved today - nearly resolved
- eosinophilia responsive to steroid, steroids per pulmonary
- keytruda, cephalosporin possible causes of eosinophilia in my opinion, I would not rechallenge with a cephalosporin - updated allergy list
- follow up with PCP
#Leukocytosis Resolving - in part due to steroids
# Hypothermia - resolved
# s/p UTI treatment
- repeat blood cultures no growth to date
- UA negative 11/25 and 11/27 negative
# KATHARINE on CKD
- resolving
ID service will no longer actively follow this patient please recall for further questions
Chief Complaint
-: Leukocytosis, Pneumonia and Other (Eosinophilia)
Subjective / Review of Systems
afebrile
bp stable
stable leukocytosis, improving left shift
Vital Signs / Physical Exam
Vital Signs
Vital Signs
Temp Pulse Resp BP Pulse Ox
97.6 F 88 16 122/58 97
12/02/23 07:50 12/02/23 08:54 12/02/23 07:33 12/02/23 08:54 12/02/23 08:10
Physical Exam
Constitutional: No Acute Distress and Chronically Ill
Cardiovascular: Regular Rate
Pulmonary: Symmetric and Non Labored
Gastrointestinal: Non Distended
Skin: Dry; Negative Rash or Jaundice
Neurological: Awake
Objective Data
Lab Data
Lab Results
12/02/23 04:20
12/02/23 04:20
Estimated Creat Clear 38 ml/min 12/02/23 04:20
Lactic Acid 1.1 mmol/L (0.7-2.0) 11/24/23 03:34
Total Bilirubin Cancelled 11/25/23 10:27
AST Cancelled 11/25/23 10:27
ALT Cancelled 11/25/23 10:27
Alkaline Phosphatase Cancelled 11/25/23 10:27
Most recent labs reviewed.
Micro Results:
11/26/23 17:54 Blood Culture - Final
Blood/Venous No Growth - Final Report
11/26/23 17:57 Blood Culture - Final
Blood/Venous No Growth - Final Report
11/28/23 20:57 Respiratory Culture - Final
Sputum Gram Stain - Final
11/26/23 17:46 Legionella Urinary Antigen - Final
Urine Negative for Legionella pneumophila Serogroup 1 antigen.
A negative result does not rule out the possiblity of
Legionella infection due to other serogroups or species of
Legionella. Clinical correlation is recommended.
Streptococcus pneumoniae Antigen (M - Final
Negative for Streptococcus pneumoniae antigen.
A negative result does not exclude infection with
Streptococcus pneumoniae. Clinical correlation is
recommended.
11/24/23 03:24 Influenza Types A & B (MARY) - Final
Nasal Swab Negative for Influenza A & B, NAAT
Negative results must be combined with clinical observations
and patient history.
Nucleic Acid Amplification test (NAAT)performed on the
[employer] platform.
11/18/23 17:54 Blood Culture - Final
Blood/Venous No Growth - Final Report
11/18/23 17:49 Blood Culture - Final
Blood/Venous No Growth - Final Report
11/18/23 16:54 Urine Culture - Final
Urine Escherichia coli
11/18/23 14:18 Influenza Types A & B (MARY) - Final
Nasal Swab Negative for Influenza A & B, NAAT
Negative results must be combined with clinical observations
and patient history.
Nucleic Acid Amplification test (NAAT)performed on the
[employer] platform.
11/26/23 CT C/A/P: Fairly extensive parenchymal opacity throughout both lungs, mostly a small nodular pattern, although also having a reticulonodular and groundglass pattern.�Small to moderate right pleural effusion with small left pleural
effusion.Dilation of the abdominal aorta with maximum AP dimension of 3.3 cm. Morphologic appearance of the abdominal aorta compatible with chronic dissection.
--- NOTE | 2023-12-02 10:28 | W.PN.ONC ---
Addendum entered and electronically signed by Last Velásquez DO 12/02/23 12:02:
Chart reviewed and patient examined independently. Agree with the impression and plan as outlined by [employer]. Respiratory status significantly improved. Anticipating discharge and follow-up in the office for continued oncologic intervention absent
checkpoint inhibitor/Taxol.
Original Note:
Today's Communication / Plan
-
12/01 WBC 14.2
Continue steroids per Pulm
Improvement of respiratory status; wean O2 as able, assess for home oxygen if needed
Physical therapy will be crucial moving forward for proximal muscle weakness exacerbated by steroids
[facility]/PT/OT
Office has been updated of patients clinical status.
We will follow.
Impression
Impression
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
Non-small cell lung cancer, disease progression in lung and hilar node s/p radiation (11/2022)
Chemotherapy: Carbo/Taxol, Pembrolizumab last received 10/31/23 (first treatment)
Leukocytosis (s/p GCS-F Rolvedon 11/01/23) (resolving)
Hypoxic respiratory failure
Acute on chronic heart failure
Atrial fibrillation, new
Lower extremity edema
Hyperglycemia
Subjective/Objective
Subjective/Objective
patient is OOB to the chair. he states he feels significantly better and eager to be discharged and move forward with treatment. he is in good spirits.
Vital Signs:
Vital Signs
Temp Pulse Resp BP Pulse Ox
97.6 F 89 18 99/75 97
12/02/23 07:50 12/02/23 10:03 12/02/23 10:03 12/02/23 10:03 12/02/23 08:10
physical exam:
aaox3, chronically ill appearing, nontoxic, pallor
HR irregular, lungs clear/slightly coarse/diminished on 2L oxygen via nasal cannula
+1 edema to LE with discoloration
OOB to the chair
Lab Results:
Laboratory Data
WBC 14.2 10^3/uL (4.8-10.8) H 12/02/23 04:20
Hgb 8.7 g/dL (13.0-18.0) L 12/02/23 04:20
Plt Count 267 10^3/uL (130-400) 12/02/23 04:20
eGFR 37.12 12/02/23 04:20
11/30/23 CXR: Improved aeration of the lungs, with mild residual interstitial and airspace disease. There is persistent basilar atelectasis and pleural effusion left greater than right. Slight decrease in the prominence of the left paramediastinal
soft tissue opacity in the area of previous lung cancer.
[2023-12-02 11:20] LABS: Glucose - Point of Care 330 mg/dl (70-99)
[2023-12-02] MEDS: NOVOLOG FLEXPEN-HIGH RESISTANCE 10 UNITS SC (12:02)
[2023-12-02] MEDS: PLAVIX 75 MG PO (16:02)
[2023-12-02] MEDS: CRESTOR 40 MG PO (16:02)
[2023-12-02 17:00] LABS: Glucose - Point of Care 134 mg/dl (70-99)
[2023-12-02] MEDS: NOVOLOG FLEXPEN-HIGH RESISTANCE 1 UNITS SC (17:05)
[2023-12-02] MEDS: METAMUCIL, KONSYL 1 PACKET PO (17:24)
--- NOTE | 2023-12-02 20:44 | PTCARENOTE ---
Received pt from [facility]. Pt OOB in the chair, assisted back to bed x1. Pt is AAOx3. Aflutter/Afib w/ BBB on the monitor. On 2L NC O2 sat 93%, lungs are coarse/diminished. Pt uses the urinal. Offered pt to brush his teeth, pt states 'he does it
once a day'. Pt is laying comfortable in bed with call alcaraz in reach.
[2023-12-02] MEDS: LANTUS 0.5 UNITS SC (22:37)
[2023-12-02 22:38] LABS: Glucose - Point of Care 247 mg/dl (70-99)
[2023-12-03] VITALS (7 sets, daily range): BP systolic 102–143; BP diastolic 54–71; BMI 30.2
[2023-12-03 05:41] LABS: % Basophils 0.1 % (0-2); % Immature Granulocytes 0.7 % (0-0.5); % Monocytes 4.5 % (1.7-9.3); % Neutrophils 90.7 % (42.2-75.2); Absolute Immature Granulocytes 0.1 10^3/uL (0-0.05); Absolute Lymphocytes 0.6 10^3/uL (1.2-3.4); Absolute Monocytes 0.6 10^3/uL (0.1-0.6); Absolute Neutrophils 12.4 10^3/uL (1.4-6.5); Hematocrit 28.7 % (39.0-52.0); Hemoglobin 9.5 g/dL (13.0-18.0); Mean Corp Hgb Conc. 33.1 g/dL (33.0-37.0); Mean Corpuscular Hgb 29.1 pg (27.0-31.0); Mean Corpuscular Volume 87.8 fL (80.0-94.0); Mean Platelet Volume 9.4 fL (7.4-10.4); Nucleated Red Blood Cells % 0 % (-); Platelet Count 278 10^3/uL (130-400); Red Blood Cell Count 3.27 10^6/uL (4.70-6.10); Red Cell Dist. Width 15.7 % (11.5-14.5); White Blood Cell Count 13.6 10^3/uL (4.8-10.8)
[2023-12-03 06:13] LABS: Blood Urea Nitrogen 71 mg/dl (9-20); Calcium 9.1 mg/dl (8.4-10.2); Carbon Dioxide 31 mmol/L (22-30); Chloride 100 mmol/L (98-107); Estimated Creatinine Clearance 40 ml/min; Glucose 180 mg/dl (70-99); Potassium 5.2 mmol/L (3.5-5.1); Sodium 133 mmol/L (135-145); eGFR 39.75
[2023-12-03] MEDS: DUONEB 3 ML INH (07:28)
[2023-12-03 07:33] LABS: Glucose - Point of Care 159 mg/dl (70-99)
--- NOTE | 2023-12-03 07:33 | W.PN.HOSP.TC ---
Today's Communication/Plan
-
Oxygen saturation still dropped during exertion will probably need oxygen Home oxygen screen this morning
Believe stable for discharge
Will place on steroid taper going forward and will have follow-up with pulmonary oncology and cardiology
Ultimately can arrange for oxygen today from home care and [facility]
Assessment / Plan
Assessment / Plan
Physical Exam
General: chronically ill looking but not toxic appearing
HEENT: Moist mucous membranes and
Respiratory: +rales, . oxygen 9L midflow now
Cardiac: S1/S2 irregular irregular, Right upper chest port: not tender or redness in the area
GI: Soft, obese, non tender, +bs
Musculoskeletal: B/L LE edema with erythema with mild improvement
Neuro: AO x 3, followed commands.
Psych: Calm; No agitation.
83 years old male presented with weakness, weight gain and fever for 1 day duration
Assessment and plan
# Sepsis POA ( fever, tachycardia, leukocytosis) due to E Coli complicated UTI
#Leukocytosis likely 2/2 above and G-CSF agents and /steroids/trending down
#HyperEosinophilia now resolved
No recurrent fever. No more dysuria. Dry cough. No diarrhea. No body rash.
No gastrointestinal symptoms.
Blood culture no growth
Urine with E Coli
s/p Meropenem and Cefdinir was stopped 11/25 as completed course of abx. Monitor off antibiotics.
High WBC c/w recent G-CSF he received in October. Steroids
COVID test is negative.� Negative lactic acid.
Check LE doppler negative.
Multiple BM on 11/25.
WBC downtrending
ID following
#Adynamic Ileus
No nausea or vomiting.
Denies abdominal pain or distention
No hiccups
Tolerating diet. MiraLAX started. Will add dulcolax
Enema ordered with good results
# Acute on chronic heart failure with preserved ejection fraction
-Latest echocardiogram 50 to 55% EF with mild wall motion abnormality inferior
losartan stopped due to hypotension
After up titration of furosemide creatinine up to 2.2 now on oral Lasix 20 mg twice daily
ECHO EF 45-50%. Mild .
O2 requirement uptrending
Appreciate cardiology and nephrology input
#Acute hypoxic respiratory failure likely 2/2 AECHF vs. checkpoint inhibitor pneumonitis(per oncology does not fit timetable for this however)
see plan above
Lasix management nephrology
Wean oxygen as tolerated
Started on IV steroids which seemed to have helped symptomatically/slowly being tapered still on Solu-Medrol 40 mg every 12
-Once can transition to an oral steroid taper will need home oxygen screen
CT chest noted discussed with pulmonary
Pulmonary will follow
#KATHARNIE on CKD stage 3b
bump in cr likely 2/2 diuretics and hypotension due to afib
bladder scan protocol.
Trend cr. remains hypervolemia.
Creatinine 2 .2. Will continue to monitor.
Nephrology following
#Hyponatremia ?due to overdiuresis
improving.
#Chronic aortic aneurysm
-CT abd/pelvis wtih aortic dissection
-Evaluated by vascular surgery -seems chronic
-follows Dr. Sloan
#Paroxysmal atrial fibrillation with intermittent RVR >> now in sinus rhythm
Started on amiodarone and now low dose lopressor.
-Transition to amiodarone 200 mg p.o. twice daily for 1 month and then single dose daily cardiology to follow as outpatient
Soft BP is limiting factor for aggressive rate control
Started on Eliquis
# Anemia
likely of chronic disease and chemotherapy related
monitor daily
monitor closely as started on Eliquis.
# Hx of lung cancer
follows with Dr Shin, Office was notified.
Receiving Chemo and G-CSF agents.
Onc eval.
# History of BPH and obstruction.� Monitor for urinary retention.� Ordered a bladder scan
# History of coronary artery disease.� No chest pain. ASA stopped. Plavix continued. started on lopressor.
#Primary hypertension-now with hypotension. losartan stopped. BP improving
#Diabetes mellitus
Poorly controlled. HGB A1C 8.1 but with ongoing chemo Tx.
lantus increased to 50 units and added mealtime NovoLog
Placed back on his twice daily glipizide yesterday
Swtich to moderate -dose ISS/while on steroids
Hyperglycemia due to steroids. Blood sugar 334 this morning
Will reduce Lantus insulin and probably discontinue mealtime insulin at time of discharge if can reduce steroids on taper
# PVD and carotid artery disease.
DVT ppx-on eliquis now
Full code
Anticipated Discharge: Today
Subjective/Interval History
-
Date of Service: December 03, 2023
Doing quite well this morning and now down to 1 L of nasal oxygen cough is all but gone really not complain of any shortness of breath did desat again and PT into the high 70s but quickly recovered in the 90s.
Objective Data
-
Labs:
Laboratory Results
12/03/23
05:04
WBC 13.6 H
Hgb 9.5 L
Hct 28.7 L
Plt Count 278
Sodium 133 L
Potassium 5.2 H
Chloride 100
Carbon Dioxide 31 H
BUN 71 H
Creatinine 1.7 H
Glucose 180 H
Calcium 9.1
Vital Signs:
Vital Signs
Temp Pulse Resp BP Pulse Ox
98.2 F 80 16 126/66 96
12/03/23 03:00 12/03/23 07:31 12/03/23 07:31 12/03/23 06:00 12/03/23 07:31
I&O
12/02/23 12/03/23 12/04/23
06:59 06:59 07:59
Intake Total 1260 / 1260 210 / 210
Output Total 1585 / 1585 2199 / 2199
Balance -325 / -325 -1989 /
Physical Exam
-
HEENT: Normocephalic
Respiratory: Crackles
Cardiac: Regular Rhythm
Data Reviewed
-
Total Time Spent with Patient (in minutes): 56
Labs: Labs Reviewed by me (Leukocytosis trending down/blood sugars improving now)
[2023-12-03] MEDS: NOVOLOG FLEXPEN 6 UNITS SC ×2 (07:51→12:51)
[2023-12-03] MEDS: NOVOLOG FLEXPEN-HIGH RESISTANCE 2 UNITS SC (07:51)
[2023-12-03] MEDS: MUCINEX 600 MG PO (07:52)
[2023-12-03] MEDS: GLUCOTROL 5 MG PO (07:52)
[2023-12-03] MEDS: DELTASONE 40 MG PO (07:52)
[2023-12-03] MEDS: VITAMIN D3 (cholecalciferol) 100 MCG PO (07:52)
[2023-12-03] MEDS: FLOMAX 0.400000000000000022 MG PO (07:52)
[2023-12-03] MEDS: MIRALAX 17 GRAMS PO (07:52)
[2023-12-03] MEDS: ELIQUIS 2.5 MG PO (07:52)
[2023-12-03] MEDS: LOPRESSOR 25 MG PO (07:53)
[2023-12-03] MEDS: PACERONE 200 MG PO (07:53)
[2023-12-03] MEDS: LASIX 20 MG PO (07:53)
[2023-12-03] MEDS: NON-FORMULARY ITEM 1 SPRAY NASAL (07:53)
--- NOTE | 2023-12-03 10:53 | W.PN.PUL3 ---
Today's Communication / Plan
-
Doing well post treatment, home O2 eval with no need for O2 set up
Continue prednisone taper at discharge
Encouraged continued ambulation, IS
Outpatient pulmonary FU recommended
Discharge planning per team
Assessment
-
Patient is a 83 year old M with complex cardiac history including VT/VF arrest, CAD s/p CABG 04/2015, PCI LM and LCx 06/2015, Afib, PVD with multiple peripheral interventions including fem bypass, b/l CEA 2018, AAA, COPD/Emphysema, squamous cell lung
cancer left upper lobe status post radiation/chemotherapy 10/31/2023, now presents with increased shortness of breath x 5 days, weight gain, lower extremity swelling, fever. We are asked to comment on pulmonary status 11/19, and we are now asked to
comment given his continued high oxygen requirements on 11/27/2023.
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
Suspected acute heart failure
Preserved ejection fraction
Hypereosinophilia-resolved with steroids
Leukocytosis
UTI due to E. coli
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
Status post SBRT - November 2022
Progression via PET in 07/2023 s/p chemoimmunotherapy on 10/31/2023 with Keytruda and carbo/taxol
Conditions present prior to admission
AFib
CAD s/p CABG KINCAID-LAD 04/2015
PCI LM and LCX 06/2015
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
Former smoker
HTN
Hypercholesterolemia
NIDDM
BPH
RBBB
PVD s/p vein stripping, Fem bypass 2019
b/l CEA 2018
Chronic kidney disease
History of aortic aneurysm
�
Plan:
--> Home o2 eval--91% on room air
Hypoxemic respiratory failure is multifactorial from acute hypervolemia, pneumonia and ICI-pneumonitis
This has improved
Change methylprednisolone to prednisone 40 mg with slow taper
Nebulizers if needed-currently not bronchospastic
Aspiration precautions
Tessalon pearls as needed
Chest x-ray 11/30/2023-improved aeration with mild residual interstitial and airspace disease, slight decrease in prominence of left paramediastinal soft tissue opacification
Diuresis continues as tolerated
Monitor renal function, electrolytes, intake/output, lower extremity edema and weight
Continue to replace electrolytes as needed
Oncology following-correspondence reviewed-feel iatrogenic pneumonitis secondary to Keytruda or Paclitaxel
Nephrology following-correspondence reviewed.
Lasix per nephrology-on hold
Cardiology following-correspondence reviewed.-Continue Eliquis and amiodarone
Cultures reviewed
Last dose of antibiotics was on 11/25/2023 (cefdinir from 11/20 - 11/24; s/p meropenem 11/20 - 11/21/23; IV vanco x 2 doses from 11/18 - 11/19/23; also Invanz x1 dose on 11/18/23
His urine cultures were suggestive of UTI (E. coli R to cipro and levaquin)
Infectious disease following-correspondence reviewed
Monitor blood sugar
Insulin supplementation as needed
DVT prophylaxis-on Eliquis
Follow-up with Dr. Melgar as previously scheduled-also check for sleep apnea
Diagnostic Data
PFTs 09/02/21: FEV1 2.62L 89%, FVC 4.08L 99%, ratio 64. TLC 6.65L 92%, DLCO 46% (mild obstruction, normal volumes, moderate diffusion impairment)
CT Chest/Abd/Pelvis without contrast 11-26-2023:�Fairly extensive parenchymal opacity throughout both lungs, mostly a small nodular pattern, although also having a reticulonodular and groundglass pattern. The morphologic appearance is most suggestive
of extensive bilateral pneumonia. This could represent pulmonary edema, but somewhat atypical distribution with some regions of relative sparing. Based on imaging findings alone, this could represent lymphangitic spread of carcinoma, but felt to be
unlikely based on its relatively fast appearance radiographically.
Small to moderate right pleural effusion with small left pleural effusion. No evidence for acute abnormality within the abdomen or pelvis. There is a small left inguinal hernia, with a portion of the colon protruding into the base of this small
hernia, with no evidence for obstruction. Dilation of the abdominal aorta with maximum AP dimension of 3.3 cm. Morphologic appearance of the abdominal aorta compatible with chronic dissection. Colonic diverticula with no CT evidence for
diverticulitis.
Subjective Data
-
Date of Service:
Date of Service: December 03, 2023
Chief Complaint: Pulmonary Follow Up and Dyspnea Follow Up
Subjective:
doing well this AM, home O2 eval with no need for home o2
no new complaints
wants to go home
Objective Data
Data Reviewed
Vital Signs / I&O / Oxygen:
Vital Signs
Temp Pulse Resp BP Pulse Ox
97.7 F 104 17 112/57 90
12/03/23 08:58 12/03/23 08:01 12/03/23 08:01 12/03/23 08:01 12/03/23 08:07
Intake and Output
12/02/23 12/03/23 12/04/23
06:59 06:59 07:59
Intake Total 1260 / 1260 210 / 210
Output Total 1585 / 1585 2200 / 2200 100 / 100
Balance -325 / -325 -1990 / -1990 -100 / -100
SaO2 90
Nasal Cannula flow liters per 1.5
minute
Physical Exam
General: Respiratory Distress (negative), Comfortable, Chills (negative), Good Appetite and Other (NAD)
HEENT: Normocephalic, Anicteric and Moist Mucous Membranes
Cardiovascular: S1-S2, Regular Rhythm, Murmur (n) and Peripheral Edema (+2 LE pitting edema)
Respiratory: Clear, Wheeze (n), Crackles (n), Rhonchi (n), Non-Labored Respirations and Accessory Resp Muscle Use (only during exertional activities)
GI: Soft, Non Distended and Non Tender
Neurology: Awake, Alert, Oriented, AO x 3 and No Motor Deficits
Skin: Warm, Good Color, Cyanosis (n), Jaundice (n), Rash (n) and Other (Mild chronic venous stasis changes)
Labs/Micro/Reports
Lab Data
12/03/23 05:04
12/03/23 05:04
Microbiology
11/26/23 17:54 Blood/Venous Blood Culture - Final
No Growth - Final Report
11/26/23 17:57 Blood/Venous Blood Culture - Final
No Growth - Final Report
[2023-12-03] MEDS: DUONEB INH (11:13)
[2023-12-03 11:47] LABS: Glucose - Point of Care 134 mg/dl (70-99)
--- NOTE | 2023-12-03 12:12 | W.DCSUMMARY ---
Discharge Summary
Discharge Data
Date of Admission: 11/18/23
Date of Discharge: 12/03/23
-
Pending Results: No
Hospital Course
83-year-old male with a significant cardiac history including prior V-fib arrest CAD with CABG peripheral vascular disease and bypass along with COPD emphysema and squamous cell carcinoma of the left upper lobe undergoing postradiation therapy and
chemotherapy back on October felt he had been undergoing a course of Keytruda and Taxol. And presented with acute respiratory failure with hypoxemia felt to be multifactorial after evaluation due to a combination of volume overload pneumonia
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 His upper left upper lobe
squamous cell carcinoma is considered stage Ib and has shown progression via PET scan since July 2023/his hospital course included presentation of significant leukocytosis and eosinophilia that finally responded to a course of high-dose steroids
he had initial course of hypothermia that eventually resolved. He had a urinary tract infection and was treated with antibiotics seen by the infectious disease service multiple other consultations services included oncology, nephrology due to onset
of acute on chronic kidney disease that is also resolved and cardiology. He was noted to have new onset atrial fibrillation and anticoagulant therapy with apixaban was started and cardiology placed the patient on amiodarone loading of 200 mg twice
a day and he has remained in sinus rhythm for the last several days./Pulmonary service is managing steroid management and this is gradually improved as far as levels of hypoxemia with significant issues with hyperglycemia in relation to his hide IV
steroids and adjusted long-acting and mealtime insulin was added during course of therapy and hospitalization he was finally able to wean off his oxygen therapy on the day prior to his discharge and underwent home oxygen screen that did not qualify
for oxygen at home. He been given instructions on a steroid taper and will follow-up with the pulmonary service of Dr. Melgar. Infectious disease service signed off as there is no obvious infectious etiology on his presentation has been off
antibiotic for some time.
Oncology opinion being that with the possibility of underlying immune checkpoint inhibitor pneumonitis they would defer further treatment with Keytruda in combination with Taxol looking for alternatives on a follow-up visit.
He was instructed to continue his course of Lantus insulin at 40 units at at bedtime daily until which time he is off steroid taper and then go to revert back to his prior dosing of 35 units and continue glipizide at 5 mg twice a day.
CT of the chest abdomen pelvis showed extensive by lateral reticulonodular and groundglass opacity suggestive extensive bilateral pneumonia and atypical pulmonary edema per radiology.
CT Chest/Abd/Pelvis without contrast 11-26-2023:
�Fairly extensive parenchymal opacity throughout both lungs, mostly a small nodular pattern, although also having a reticulonodular and groundglass pattern. The morphologic appearance is most suggestive of extensive bilateral pneumonia. This could
represent pulmonary edema, but somewhat atypical distribution with some regions of relative sparing. Based on imaging findings alone, this could represent lymphangitic spread of carcinoma, but felt to be unlikely based on its relatively fast
appearance radiographically.
Small to moderate right pleural effusion with small left pleural effusion. No evidence for acute abnormality within the abdomen or pelvis. There is a small left inguinal hernia, with a portion of the colon protruding into the base of this small
hernia, with no evidence for obstruction. Dilation of the abdominal aorta with maximum AP dimension of 3.3 cm. Morphologic appearance of the abdominal aorta compatible with chronic dissection. Colonic diverticula with no CT evidence for
diverticulitis.
2D echocardiogram performed on 29 November showed a normal ventricle left ventricular size with akinesis of the basal inferior wall and an EF of 50 to 55% compared to prior study of November 21 left ventricular EF is visually mildly improved but did
note wall motion abnormality inferior basal LV.
Discharge Plan
-
Patient Disposition: Home with Home Care
Discharge Diagnosis/Procedures: UTI, Eosinophilia
Hypoxic respiratory failure
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
Paroxysmal atrial fibrillation new
Diet: 2 Gram Sodium
Driving Restrictions: As prior to admission
Others Tests: Ultrasound: 12/14 @ 2pm
Specialty Instructions: Weigh Daily- Call MD for wt gain/loss 3 lbs overnight/5 lbs in 1 week
Activity Restrictions/Additional Instructions:
Would broaden allergy from keflex only to cephalosporins - reaction - esosinophilia
Instructions: *[facility] Heart Failure Instructions
Referrals:
Bradly Sloan III, MD [Active] - 12/21/23 3:15 pm
(
Vascular follow up)
Renato Blackburn MD [Active] - 12/08/23 10:00 am (You have an appt to see Dr. Blackburn's nurse practitioner, Felecia, at the [facility] office on 12/08/23 at 10 AM. Please call [phone] if you need to reschedule.)
Olvin Mcgrath MD [Active] - in one to two weeks (Dr. Melgar or CULTURIST -also check home sleep study is sleep apnea suspected in the hospital)
Rodrigo Villa, [Family Provider] -
Prescriptions:
New
ipratropium-albuterol 0.5 mg-3 mg(2.5 mg base)/3 mL Solution For Nebulization
3 ml inhalation R Q4HPRN PRN (Reason: sob/wheezing) Qty: 30 0RF
Eliquis 2.5 mg Tablet
2.5 mg PO BID Qty: 60 0RF
polyethylene glycol 3350 [HealthyLax] 17 gram Powder In Packet
17 g PO BID Qty: 30 0RF
metoprolol tartrate 25 mg Tablet
25 mg PO BID Qty: 60 0RF
amiodarone [Pacerone] 200 mg Tablet
200 mg PO BID Qty: 60 0RF
prednisone 10 mg Tablet
See Rx Instructions .ROUTE .COMPLEX Qty: 30 0RF
Rx Instructions:
Take By Mouth:
40 mg daily x3 days, 30 mg daily x3 days,
20 mg daily x3 days, 10 mg daily x3 days.
Continued
aspirin [Adult Low Dose Aspirin] 81 MG tablet,delayed release (DR/EC)
81 mg PO DAILY@1600
furosemide 20 MG tablet
20 mg PO BID@0800,1600
rosuvastatin [Crestor] 40 MG tablet
40 mg PO DAILY@1600
psyllium Packet
1 packet PO QPM Qty: 0
tamsulosin 0.4 mg Capsule
0.4 mg PO BID
losartan 100 mg Tablet
100 mg PO DAILY@1600
glipizide 5 mg Tablet Extended Release 24hr
5 mg PO BID@0800,1700
Visbiome 112.5 billion cell Capsule
1 cap PO DAILY
azelastine 137 mcg (0.1 %) Aerosol,Arvin
1 spray INTRANASAL BID
cholecalciferol (vitamin D3) [Vitamin D3] 50 mcg (2,000 unit) Tablet
100 mcg PO DAILY
guaifenesin [Mucinex] 600 mg Tablet Extended Release 12hr
600 mg PO BID
diphenhydramine-acetaminophen [Tylenol PM Extra Strength] 25-500 mg Tablet
1 tab PO HS
acetaminophen [Tylenol 8 Hour] 650 mg tablet extended release
650 mg PO Q8H PRN (Reason: prostate)
Changed
insulin glargine [Lantus U-100 Insulin] 1,000 UNITS/10 ML solution
40 unit SC HS Qty: 0 0RF
Rx Instructions:
Till you or off steroids and go to 35 units as prior
No Action
clopidogrel [Plavix] 75 mg Tablet
75 mg PO DAILY@1600
Discharge Orders:
Discharge Patient (As Directed); Ordered 12/03/23
Ordered By: Abdullahi Wade
[2023-12-03] MEDS: NOVOLOG FLEXPEN-HIGH RESISTANCE SC (12:29)
--- NOTE | 2023-12-03 14:31 | PTCARENOTE ---
Pt for d/c home. Port de-accessed by IVT. Monitor equipment removed. Home medication returned to pt. D/c instructions and med list reviewed at length. Paper RX given to pt. D/c home with son in law.
--- NOTE | 2023-12-03 15:39 | CM ---
CM following re: d/c planning
Chart reviewed
Pt is medically stable for d/c
IMM reviewed and copy provided
CM placed a referral for home care with [facility] secondary to CHF dx and referral accepted
Pt states his son-in-law will transport him home at time of d/c
PLAN; d/c home with [facility]
== END 2023-12-03 14:57 | disposition home health service (06) | DRG 871 ==
LOC: IMU 19:05
PROVIDERS: Emergency Medicine; Hospitalist; Internal Medicine Cardiovascular Disease; Internal Medicine Infectious Disease; Nurse Practitioner Family; Physician Assistant Medical; ADMITTING PHYSICIAN Internal Medicine; ATTENDING PHYSICIAN Internal Medicine; CONSULT PHYSICIAN Internal Medicine Critical Care Medicine; CONSULT PHYSICIAN Internal Medicine Hematology & Oncology; CONSULT PHYSICIAN Specialist; CONSULT PHYSICIAN Student in an Organized Health Care Education/Training Program; EMERGENCY PHYSICIAN Emergency Medicine; FAMILY PHYSICIAN Family Medicine; OTHER PHYSICIAN Surgery
DX: A41.51 Sepsis due to Escherichia coli [E. coli] (principal); I50.33 Acute on chronic diastolic (congestive) heart failure; J96.01 Acute respiratory failure with hypoxia; J18.9 Pneumonia, unspecified organism; I13.0 Hypertensive heart and chronic kidney disease with heart failure and stage 1 through stage 4 chronic kidney disease, or unspecified chronic kidney disease; N39.0 Urinary tract infection, site not specified; N17.9 Acute kidney failure, unspecified; E87.1 Hypo-osmolality and hyponatremia; K56.0 Paralytic ileus; J98.11 Atelectasis; J44.0 Chronic obstructive pulmonary disease with (acute) lower respiratory infection; E11.22 Type 2 diabetes mellitus with diabetic chronic kidney disease; E11.51 Type 2 diabetes mellitus with diabetic peripheral angiopathy without gangrene; E11.65 Type 2 diabetes mellitus with hyperglycemia; I35.0 Nonrheumatic aortic (valve) stenosis; I25.10 Atherosclerotic heart disease of native coronary artery without angina pectoris; I95.2 Hypotension due to drugs; T46.5X5A Adverse effect of other antihypertensive drugs, initial encounter; Y92.239 Unspecified place in hospital as the place of occurrence of the external cause; E78.00 Pure hypercholesterolemia, unspecified; J43.9 Emphysema, unspecified; D63.8 Anemia in other chronic diseases classified elsewhere; I71.43 Infrarenal abdominal aortic aneurysm, without rupture; I25.82 Chronic total occlusion of coronary artery; I48.0 Paroxysmal atrial fibrillation; G47.33 Obstructive sleep apnea (adult) (pediatric); L89.151 Pressure ulcer of sacral region, stage 1; D72.10 Eosinophilia, unspecified; J98.4 Other disorders of lung; D64.81 Anemia due to antineoplastic chemotherapy; R68.0 Hypothermia, not associated with low environmental temperature; T45.1X5A Adverse effect of antineoplastic and immunosuppressive drugs, initial encounter; R33.8 Other retention of urine; K57.30 Diverticulosis of large intestine without perforation or abscess without bleeding; K40.90 Unilateral inguinal hernia, without obstruction or gangrene, not specified as recurrent; N40.1 Benign prostatic hyperplasia with lower urinary tract symptoms; N18.32 Chronic kidney disease, stage 3b; Z11.52 Encounter for screening for COVID-19; Z85.118 Personal history of other malignant neoplasm of bronchus and lung; Z86.74 Personal history of sudden cardiac arrest; I25.2 Old myocardial infarction; Z87.891 Personal history of nicotine dependence; Z79.82 Long term (current) use of aspirin; Z79.4 Long term (current) use of insulin; Z79.84 Long term (current) use of oral hypoglycemic drugs; Z79.02 Long term (current) use of antithrombotics/antiplatelets; Z95.1 Presence of aortocoronary bypass graft; Z95.5 Presence of coronary angioplasty implant and graft; Z92.3 Personal history of irradiation; Z90.49 Acquired absence of other specified parts of digestive tract; Z92.21 Personal history of antineoplastic chemotherapy; Z88.2 Allergy status to sulfonamides; Z88.8 Allergy status to other drugs, medicaments and biological substances; Z88.1 Allergy status to other antibiotic agents; Z91.041 Radiographic dye allergy status; Z86.79 Personal history of other diseases of the circulatory system
CPT/HCPCS: 93308; 71045; 71046; 71250; 74018; 74176; 80048; 80053; 81003; 81015; 82248; 82947; 82962; 83036; 83605; 83735; 83880; 83930; 83935; 84300; 84439; 84443; 84484; 85025; 85027; 85379; 87040; 87070; 87077; 87086; 87186; 87205; 87449; 87502; 87811; 87899; 93005; 93306; 93321; 93325; 93970; 94640; 96365; 96366; 96367; 96375; 97116; 97162; 97166; 97530; 97535; 99285; J1335

== ENCOUNTER → 2023-12-15 13:47 | Outpatient (REF) | payer MEDICARE, OTHER, SELFPAY | LOC: RAD 13:47 | PROVIDERS: ATTENDING PHYSICIAN Surgery Vascular Surgery; FAMILY PHYSICIAN Family Medicine; REFERRING PHYSICIAN Physician Assistant | DX: I73.9 Peripheral vascular disease, unspecified (principal) | CPT/HCPCS: 93922; 93925 ==

== ENCOUNTER 2024-01-05 17:14 | Inpatient (IN) | payer MEDICARE, OTHER, SELFPAY ==
[2024-01-05] VITALS (8 sets, daily range): BP systolic 104–140; BP diastolic 40–59; BMI 31.6
[2024-01-05 14:48] LABS: % Basophils 0.6 % (0-2); % Eosinophils 3.9 % (0-6); % Immature Granulocytes 0.5 % (0-0.5); % Lymphocytes 17.6 % (20.5-51.1); % Monocytes 13.1 % (1.7-9.3); % Neutrophils 64.3 % (42.2-75.2); Absolute Eosinophils 0.3 10^3/uL (0-0.7); Absolute Lymphocytes 1.1 10^3/uL (1.2-3.4); Absolute Monocytes 0.8 10^3/uL (0.1-0.6); Absolute Neutrophils 4.1 10^3/uL (1.4-6.5); Mean Corpuscular Hgb 29.4 pg (27.0-31.0); Mean Corpuscular Volume 94.8 fL (80.0-94.0); Mean Platelet Volume 8.7 fL (7.4-10.4); Nucleated Red Blood Cells % 0 % (-); Platelet Count 285 10^3/uL (130-400); Red Blood Cell Count 3.06 10^6/uL (4.70-6.10); Red Cell Dist. Width 15.9 % (11.5-14.5); White Blood Cell Count 6.4 10^3/uL (4.8-10.8)
[2024-01-05 15:07] LABS: ALT (SGPT) < 10 U/L (0-50); AST (SGOT) 14 U/L (17-59); Albumin 3.1 g/dl (3.5-5.0); Alkaline Phosphatase 72 U/L (38-126); Blood Urea Nitrogen 26 mg/dl (9-20); Calcium 8.8 mg/dl (8.4-10.2); Carbon Dioxide 33 mmol/L (22-30); Chloride 100 mmol/L (98-107); Glucose 152 mg/dl (70-99); Potassium 4.1 mmol/L (3.5-5.1); Sodium 140 mmol/L (135-145); Total Bilirubin 0.6 mg/dl (0.2-1.3); Total Protein 6.7 g/dl (6.3-8.2); eGFR 37.12
[2024-01-05 15:11] LABS: NT-proBNP 2850 pg/ml; Troponin I 0.022 ng/ml
--- NOTE | 2024-01-05 15:13 | ED.GENMED ---
History of Present Illness
General
Chief Complaint: Fatigue
Source: patient
Exam Limitations: none
Time Seen by Provider: 01/05/24 14:57
Travel History
Have you had any contact with someone who has COVID-19?: No
Do you have any symptoms of coronavirus? Fever > 100 degrees, chills, cough, shortness of breath, sore throat, loss of taste or smell, muscle aches, or headache?: No
History of Present Illness
History of Present Illness:
See MDM
Past History
Past History
ED Past Medical History: CAD, HTN, Hypercholesterolemia, Renal failure, Other (BPH, urinary retention), Other (Peripheral arterial disease) and Other (V tach/V-fib arrest, [place], CAD, CABG, PCI LM and LCx 06/2015, A-fib, PVD with multiple peripheral
interventions including bypass, AAA)
ED Past Surgical History: Cardiac (CABG x 26 Apr 2015, Bilateral carotid endarterectomies 2018, ), Cholecystectomy and Other (Vascular lower extremity bypass)
Social History
Tobacco: Former smoker
Alcohol: None
Drug: None
Personal:
Living: with family
Phy Exam
Physical Exam
Physical Exam:
See MDM
Course
Orders/Labs/Results
Orders:
Orders
01/05/24 14:18
Electrocardiogram (*1) Urgent
Reason for Study: Fatigue / Weakness
01/05/24 14:41
Complete Blood Count/With Diff Urgent
Comprehensive Metabolic Panel Urgent
Pro-BNP [NT-proBNP] Urgent
Troponin I Urgent
01/05/24 15:10
CR Chest - 2 Views Urgent
Comment:
Reason For Exam: SOB, hx CHF and lung ca
01/05/24 16:19
Furosemide [Lasix] 80 mg IV NOW STA
Abnormal Lab Results
01/05/24
14:41
RBC 3.06 L 10^6/uL
(4.70-6.10)
Hgb 9.0 L g/dL
(13.0-18.0)
Hct 29.0 L %
(39.0-52.0)
MCV 94.8 H fL
(80.0-94.0)
MCHC 31.0 L g/dL
(33.0-37.0)
RDW 15.9 H %
(11.5-14.5)
Absolute Lymphs (auto) 1.1 L 10^3/uL
(1.2-3.4)
Absolute Monos (auto) 0.8 H 10^3/uL
(0.1-0.6)
Lymphocytes % 17.6 L %
(20.5-51.1)
Monocytes % 13.1 H %
(1.7-9.3)
Carbon Dioxide 33 H mmol/L
(22-30)
BUN 26 H mg/dl
(9-20)
Creatinine 1.8 H mg/dL
(0.7-1.3)
Glucose 152 H mg/dl
(70-99)
AST 14 L U/L
(17-59)
Albumin 3.1 L g/dl
(3.5-5.0)
01/05/24 14:41
01/05/24 14:41
Vital Signs
Initial and Last Documented VS:
Initial Vital Signs
Temp Pulse Resp BP Pulse Ox
98.1 F 43 18 104/40 92
01/05/24 14:15 01/05/24 14:15 01/05/24 14:15 01/05/24 14:15 01/05/24 14:15
Last Documented Vital Signs
Temp Pulse Resp BP Pulse Ox
98.1 F 50 17 119/57 93
01/05/24 14:15 01/05/24 16:29 01/05/24 16:00 01/05/24 16:29 01/05/24 16:00
MDM/Problems Addressed
Differential Diagnosis Includes:
HPI and MDM Narrative:
83-year-old male presenting with shortness of breath with exertion and worsening bilateral leg swelling. Patient has a history of active lung cancer failure. Patient was recently admitted last month for IV Lasix for pleural effusions and leg
edema. Patient is worried because symptoms are reoccurring. He talk to his steam fitter Dr. Ferguson who sent him to the ER for evaluation
Physical exam
General: Well appearing and non-toxic
HEENT: protecting airway
Neck: appears supple
CV: No evidence of cyanosis. Bradycardic. Regular rhythm
Resp: No accessory muscle use. Lungs clear
Abd: Non-distended
Extremities: No deformities. +3 pitting edema bilateral lower extremities
Neuro: alert
Psych: Normal affect
Skin: Intact
Problems Addressed including Acute and Chronic Conditions affecting care:
1. Dyspnea on exertion
Acuity: acute
Prognosis: unstable
Details: Likely in the setting of CHF exacerbation versus pulmonary edema. Will obtain chest x-ray and BNP
2. Hypoxia
Acuity: acute
Prognosis: unstable
Details: Likely in setting of pulm edema and possibly worsening lung cancer. Will place on supplemental oxygen
Updates
Chest x-ray concerning for mild pulmonary edema. BNP elevated. Will give IV Lasix and admit
Differential Diagnosis (but not limited to): Pulmonary edema, pulm embolism, pneumonia, CHF
Testing considered: D-dimer but patient claims compliance with Eliquis
Drug therapy (if applicable): OTC meds, please see d/c instruction regarding Rx drugs
Amount and/or Complexity of Data Reviewed
Clinical info obtained from: Patient
External data reviewed: Recently admitted last month requiring IV diuretics
Labs I independently reviewed (but not limited to): Elevated BNP
Radiology: X-ray independently reviewed: Chest x-ray concerning for mild pulmonary edema
Pulse Ox: hypoxic
EKG independently reviewed: Sinus bradycardia, normal axis, no STEMI
Communication Clerk: Bradycardia
Critical Care: The high probability of a clinically significant, sudden or life threatening deterioration of the cardiopulmonary system(s) required my full and direct attention, intervention and personal management. The aggregate critical care time
was 31 minutes. This time is in addition to time spent performing reported procedures but includes the following:
[x] Data Review and interpretation
[x] Patient assessment and monitoring of vital signs
[x] Documentation
[x] Medication orders and management
Risk of Complication:
Social Determinants of health: Good social support
Discussed with other providers: hospitalist
Escalation of Care includes Admit/Obs: Given the CHF exacerbation mild hypoxia, will admit for IV Lasix
Occasional wrong word or 'sound a like' substitutions may have occurred due to the inherent limitations of voice recognition software. Read the chart carefully and recognize, using context, where substitutions have occurred.
*Critical Care Note
Total Time (30-74mins, 75-104mins- exclusive of procedures): 31 min
ED Attending Note
-
Portions of this chart may have been created with voice recognition software.� Occasional wrong word or��sound alike� substitutions may have occurred due to the inherent limitations of voice recognition software.
Discharge Plan
Departure
Patient Disposition: Admit
Date of Disposition: 01/05/24
Time of Disposition: 16:42
Admit to: Telemetry
Presentation/result/management discussed w/ accepting MD/DO: Hospitalist
Discharge Problem:
CHF exacerbation, Hypoxia, Pleural effusion
Prescriptions:
No Action
rosuvastatin [Crestor] 40 MG tablet
40 mg PO DAILY@1600
tamsulosin 0.4 mg Capsule
0.4 mg PO BID
glipizide 5 mg Tablet Extended Release 24hr
5 mg PO BID
azelastine 137 mcg (0.1 %) Aerosol,Maupin
1 spray INTRANASAL BIDPRN PRN (Reason: congestion)
Eliquis 2.5 mg Tablet
2.5 mg PO BID Qty: 60 0RF
furosemide 40 mg Tablet
40 mg PO TUTHSA@0800
furosemide 40 mg Tablet
80 mg PO SUMOWEFR@0800
Metamucil Packet
1 packet PO QPMPRN PRN (Reason: constipation)
clopidogrel 75 mg Tablet
75 mg PO DAILY
lidocaine-prilocaine 2.5-2.5 % Cream
1 applic TOPICAL DIRECTED
Patient Comments:
01/05/2024, use when accessing port site.
insulin glargine [Lantus Solostar U-100 Insulin] 100 unit/mL (3 mL) Insulin Pen
34 unit SC DAILY@1900
cholecalciferol (vitamin D3) 50 mcg (2,000 unit) Tablet,Chewable
100 mcg PO NOON
Ultimate Mena Probiotic 30 billion cell Capsule,Delayed Release(Dr/Ec)
1 cap PO DAILY
Mucinex DM
1 tab PO BIDPRN PRN (Reason: congestion)
amiodarone [Pacerone] 200 mg tablet
200 mg PO DAILY
metoprolol tartrate 25 mg tablet
12.5 mg PO BID
Referrals:
Rodrigo Villa DO [Family Provider] -
Interventions
Interventions:
*Risk Screen - Suicide Last Done: 01/05/24 14:15
*General Assessment Last Done: 01/05/24 14:15
*Neglect/Abuse Screening Last Done: 01/05/24 14:15
*ED COVID-19 Vaccine History Last Done: 01/05/24 16:34
Discharge Date and Time
Print Language: SWEDISH
[2024-01-05] MEDS: LASIX 80 MG IV (16:29)
--- NOTE | 2024-01-05 17:11 | HPS.HSE ---
Family Physician
-
Family Physician: Rodrigo Villa
Chief Complaint
-
Shortness of breath
History of Present Illness
Patient 83 years old male with past medical history of XXX, came into the hospital with worsening shortness of breath. Patient has been experiencing gradual shortness of breath that has progressively getting worse over the last week associated with
weight gain, orthopnea, and increasing lower extremity edema. Patient tells me his last weight was around 221 pounds and today he was around 229.7 pounds. He denies chest pain. He denies fevers or chills. He denies paroxysmal nocturnal dyspnea.
He does sleeps on a recliner at nighttime. Patient also complains of discomfort in his legs associated with swelling. He has been follow-up with cardiology as outpatient and he tells me that he is scheduled to have a cardioversion next Tuesday but
he called traffic routing engineer office and they sent him over to the hospital for further evaluation and management. Patient also receives chemotherapy for his underlying lung cancer and the last time he received chemo was prior to his last hospitalization
beginning of November and he tells me he is not due for the next one until his heart issues are resolved. Patient had a recent prolonged hospitalizations from November 18 to December 02 for heart failure, new paroxysmal atrial fibrillation, pneumonitis
due to checkpoint inhibitor, and UTI and he was seen by hospitalist service as well as multiple specialists. In the ED, BNP noted to be 2850, troponin 0.022, chest x-ray with tiny bilateral pleural effusions and stable lung mass. He was referred
to hospitalist service for further evaluation.
Medical History
Past Medical History
Past Medical History: Reports Other (Hypertension, hyperlipidemia, VT/VF cardiac arrest back in 2014, paroxysmal A-fib, coronary artery disease with CABG and PCI and stent, COPD, diabetes mellitus type 2, valvular heart disease, CKD stage III, BPH,
underlying right bundle branch block, obstructive sleep apnea, lung cancer, AAA, periphe)
Past Surgical History: Reports Other (Cholecystectomy, CABG, PCI with stents, vein stripping, bilateral CEA, femoral bypass)
Social History
Tobacco: Former Smoker
Alcohol: None
Drug: None
Family History
Family History: CAD
Allergies / Home Medications
Allergies reflects when Allergies were last updated in [facility].
Home Medications with original date entered in [facility]
Allergy/Medication List:
Allergies
Allergy/AdvReac Type Severity Reaction Status Date / Time
Cephalosporins Allergy Intermediate Eosinophili Verified 01/05/24 14:15
a
ZACHARY Inhibitors Allergy Shortness Verified 01/05/24 14:15
of
Breath-possible
angioedema-pharm
to review
Iodinated Contrast Media Allergy affected Verified 01/05/24 14:15
[Iodinated Contrast Media - kidneys
Oral and]
sulfamethoxazole Allergy Rash Verified 01/05/24 14:15
[From Bactrim]
trimethoprim [From Bactrim] Allergy Rash Verified 01/05/24 14:15
Home Medications
rosuvastatin 40 mg tablet (Crestor) 40 mg PO DAILY@1600 High cholesterol 01/22/19
tamsulosin 0.4 mg capsule 0.4 mg PO BID Urinary issue 07/15/22
glipizide 5 mg tablet, extended release 24 hr 5 mg PO BID Diabetes 11/17/22
azelastine 137 mcg (0.1 %) nasal spray aerosol 1 spray intranasal BIDPRN PRN congestion 09/14/23
apixaban 2.5 mg tablet (Eliquis) 2.5 mg PO BID #60 tabs 12/03/23
Lactobacillus-Bifidobacterium 30 billion cell capsule,delayed release (Ultimate Mena Probiotic) 1 cap PO DAILY 01/05/24
Mucinex DM 1 tab PO BIDPRN PRN congestion 01/05/24
amiodarone 200 mg tablet (Pacerone) 200 mg PO DAILY 01/05/24
cholecalciferol (vitamin D3) 50 mcg (2,000 unit) chewable tablet 100 mcg PO NOON 01/05/24
clopidogrel 75 mg tablet 75 mg PO DAILY 01/05/24
furosemide 40 mg tablet 40 mg PO TUTHSA@0800 01/05/24
furosemide 40 mg tablet 80 mg PO SUMOWEFR@0800 01/05/24
insulin glargine 100 unit/mL (3 mL) subcutaneous pen (Lantus Solostar U-100 Insulin) 34 unit SC DAILY@1900 01/05/24
lidocaine-prilocaine 2.5 %-2.5 % topical cream 1 applic topical DIRECTED 01/05/24
metoprolol tartrate 25 mg tablet 12.5 mg PO BID Blood pressure 01/05/24
psyllium 1 packet PO QPMPRN PRN constipation 01/05/24
Review of Systems
-
A 12 point ROS was completed and negative except as noted: Yes
Physical Exam
Vital Signs
Vital Signs
Temp Pulse Resp BP Pulse Ox
98.1 F 55 17 119/57 91
01/05/24 14:15 01/05/24 16:45 01/05/24 16:45 01/05/24 16:29 01/05/24 16:45
Physical exam:
General: Acutely ill
HEENT: Normocephalic, Atraumatic and Moist Mucous Membranes
Respiratory: Coarse crackles bilateral; Negative Wheezes or Rhonchi
Cardiac: Irregular rate and rhythm and S1/S2, increased JVP.
GI: Soft, Nontender and Distended
Musculoskeletal: Bilateral lower extremity edema. No Clubbing, No Cyanosis
Skin: Venous stasis dermatitis
Neuro: Awake, Alert and Oriented. No gross neurological deficits.
Psych: Calm
Physical Exam
General: Other
Laboratory Results
-
01/05/24 14:41
01/05/24 14:41
Laboratory Results
Total Bilirubin 0.6 mg/dl (0.2-1.3) 01/05/24 14:41
AST 14 U/L (17-59) L 01/05/24 14:41
ALT < 10 U/L (0-50) 01/05/24 14:41
Alkaline Phosphatase 72 U/L (38-126) 01/05/24 14:41
Troponin I 0.022 ng/ml 01/05/24 14:41
Impression/Plan
-
IMPRESSION:
Patient 83 years old male with multiple medical problem came into the hospital with acute on chronic diastolic congestive heart failure. Patient is a very high risk of increased morbidity mortality due to his acute presentation and his
comorbidities. He will need to be treated in the hospital currently monitor for progress and toxicity of treatment. He also has a complex medical history including VF/VT cardiac arrest with underlying obstructive CAD paroxysmal A-fib peripheral
vascular disease and multiple vascular interventions and multiple comorbidities and lung cancer and so on.
Impression:
Acute diastolic congestive heart failure
Acute hypoxic respiratory sufficiency
Chronic kidney disease stage III
Diabetes mellitus type 2 with hyperglycemia
Anemia
Sinus bradycardia
Conditions prior to presentation:
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
Paroxysmal AFib
CAD s/p CABG KINCAID-LAD 04/2015. PCI LM and LCX 06/2015. 09/2022 post cath with patent KINCAID to LAD and stent and no new obstructive CAD.
History of VT/VF cardiac arrest 04/2015 underwent urgent CABG as above.
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
Former smoker
HTN
Hypercholesterolemia
NIDDM
BPH
RBBB
PVD s/p vein stripping, Fem bypass 2019
b/l CEA 2018
Chronic kidney disease
AAA
PLAN:
IV diuretics--> IV Lasix 40 mg twice a day (already given Lasix 80 mg iv x1 in the ED tonight)
Monitor strict I/O
Check bladder scan as well as UA per patient request.
Monitor daily weight
Monitor renal function and electrolytes
Reviewed latest echocardiogram on our system--> on 11/27 this year EF 50 to 55%, mild aortic stenosis, no pericardial effusion.
Continue guideline-directed medical therapy for heart failure (GDMT)
Fluid restriction
Salt restriction
Heart failure education
Follow up clinical response
Seen and reviewed chest x-ray
Seen and reviewed twelve-lead EKG
Continue with control agents and antiarrhythmics and anticoagulants. Might need to hold rate control if significant bradycardia.
Cardiology consult in a.m.
Diabetic diet
Will check blood sugars before meals and at bedtime
Will add insulin sliding scale
Will monitor blood sugar and adjust medications accordingly
Will update hemoglobin A1c in a.m.
Will continue home diabetic regimen
Will continue oral hypoglycemics
Will continue home insulin regimen
Pain meds as needed
DVT prophylaxis continue with Eliquis
CODE STATUS full code
Will give further commendations based on his clinical course
Total time spent on today's encounter was 75 minutes which included time spent in counseling the patient/family regarding diagnosis and treatment plan as listed above, goals of care, and symptom management. Case was discussed with nursing staff,
specialists, and care coordinators/case management. All labs and imaging personally reviewed by me. Remainder the time spent in detailed review of previous records, lab data, imaging, and other medical provider documentation.
[2024-01-05 18:49] LABS: Glucose - Point of Care 59 mg/dl (70-99)
[2024-01-05 19:08] LABS: Glucose - Point of Care 77 mg/dl (70-99)
[2024-01-05] MEDS: ELIQUIS 2.5 MG PO (20:07)
[2024-01-05] MEDS: FLOMAX 0.400000000000000022 MG PO (20:08)
[2024-01-05 21:08] LABS: Glucose - Point of Care 208 mg/dl (70-99)
[2024-01-05] MEDS: GLUCOTROL XL (EXTENDED RELEASE) PO (21:58)
[2024-01-05] MEDS: LANTUS 0.340000000000000024 UNITS SC (22:01)
[2024-01-05 22:45] LABS: Urine Albumin Negative (Neg - Trace); Urine Bilirubin Negative (Negative); Urine Character Clear (Clear); Urine Color Straw; Urine Glucose Negative (Negative); Urine Ketone Negative (Negative); Urine Leukocyte 2+ (Negative); Urine Nitrite Positive (Negative); Urine Occult Blood Negative (Negative); Urine Urobilinogen Negative (Neg - 1+); Urine pH 6.5 (5.0-9.0)
[2024-01-05 23:19] LABS: Urine Red Blood Cell 0-2 /HPF (0-2)
[2024-01-05 23:20] LABS: Urine Bacteria Moderate (Negative); Urine White Cell 26-30 /HPF (0-5)
[2024-01-05 23:26] LABS: Glucose - Point of Care 193 mg/dl (70-99)
[2024-01-06] VITALS (8 sets, daily range): BP systolic 115–145; BP diastolic 42–57; PULSE 57; O2SAT 96; BMI 31.0
[2024-01-06 03:05] LABS: Glucose - Point of Care 137 mg/dl (70-99)
[2024-01-06 05:32] LABS: Hemoglobin 8.5 g/dL (13.0-18.0); Mean Corp Hgb Conc. 31.5 g/dL (33.0-37.0); Mean Corpuscular Hgb 28.9 pg (27.0-31.0); Mean Corpuscular Volume 91.8 fL (80.0-94.0); Mean Platelet Volume 8.9 fL (7.4-10.4); Platelet Count 294 10^3/uL (130-400); Red Blood Cell Count 2.94 10^6/uL (4.70-6.10); Red Cell Dist. Width 15.8 % (11.5-14.5); White Blood Cell Count 6.4 10^3/uL (4.8-10.8)
[2024-01-06 05:55] LABS: Troponin I 0.018 ng/ml
--- NOTE | 2024-01-06 06:00 | PTCARENOTE ---
Patient bradycardic throughout night, HR 30s-40s. Patient asymptomatic, offers no complaints. MEDICAL OR SURGICAL INSTRUMENT MAKER made aware, held 2000 dose of metoprolol per MEDICAL OR SURGICAL INSTRUMENT MAKER. Plan of care ongoing.
[2024-01-06 06:01] LABS: Blood Urea Nitrogen 27 mg/dl (9-20); Carbon Dioxide 32 mmol/L (22-30); Chloride 101 mmol/L (98-107); Estimated Creatinine Clearance 39 ml/min; Glucose 91 mg/dl (70-99); Sodium 141 mmol/L (135-145); eGFR 37.12
[2024-01-06 07:22] LABS: Glucose - Point of Care 66 mg/dl (70-99)
[2024-01-06 07:44] LABS: Glucose - Point of Care 74 mg/dl (70-99)
[2024-01-06] MEDS: NOVOLOG FLEXPEN-MODERATE RESISTANCE SC ×2 (07:45→16:55)
[2024-01-06] MEDS: FLOMAX 0.400000000000000022 MG PO ×2 (08:37→21:32)
[2024-01-06] MEDS: PLAVIX 75 MG PO (08:37)
[2024-01-06] MEDS: ELIQUIS 2.5 MG PO ×2 (08:37→21:32)
[2024-01-06] MEDS: VISBIOME 1 CAP PO (08:38)
[2024-01-06] MEDS: LASIX 40 MG IV ×2 (08:39→15:51)
[2024-01-06] MEDS: GLUCOTROL XL (EXTENDED RELEASE) PO (08:40)
[2024-01-06] MEDS: PACERONE PO (08:40)
--- NOTE | 2024-01-06 08:41 | W.PN.HOSP.TC ---
Today's Communication/Plan
-
IV Lasix. Stop beta-blockers. PT OT eval
Assessment / Plan
Assessment / Plan
Physical exam:
General: Acutely ill
HEENT: Normocephalic, Atraumatic and Moist Mucous Membranes
Respiratory: Coarse crackles bilateral; Negative Wheezes or Rhonchi
Cardiac: Irregular rate and rhythm and S1/S2, increased JVP.
GI: Soft, Nontender and Distended
Musculoskeletal: Bilateral lower extremity edema. No Clubbing, No Cyanosis
Skin: Venous stasis dermatitis
Neuro: Awake, Alert and Oriented. No gross neurological deficits.
Psych: Calm
A/P:
Impression:
Acute diastolic congestive heart failure
Acute hypoxic respiratory sufficiency
Chronic kidney disease stage III
Diabetes mellitus type 2 with hyperglycemia
Anemia
Sinus bradycardia
Conditions prior to presentation:
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
Paroxysmal AFib
CAD s/p CABG KINCAID-LAD 04/2015. PCI LM and LCX 06/2015. 09/2022 post cath with patent KINCAID to LAD and stent and no new obstructive CAD.
History of VT/VF cardiac arrest 04/2015 underwent urgent CABG as above.
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
Former smoker
HTN
Hypercholesterolemia
NIDDM
BPH
RBBB
PVD s/p vein stripping, Fem bypass 2019
b/l CEA 2018
Chronic kidney disease
AAA
PLAN:
IV diuretics--> IV Lasix 40 mg twice a day (already given Lasix 80 mg iv x1 in the ED tonight)
Monitor strict I/O
Check bladder scan as well as UA per patient request.
Monitor daily weight
Monitor renal function and electrolytes
Reviewed latest echocardiogram on our system--> on 11/27 this year EF 50 to 55%, mild aortic stenosis, no pericardial effusion.
Continue guideline-directed medical therapy for heart failure (GDMT)
Fluid restriction
Salt restriction
Heart failure education
Follow up clinical response
Seen and reviewed chest x-ray
Seen and reviewed twelve-lead EKG
Continue with antiarrhythmics and anticoagulants. Cardiology discontinued beta-howard today.
Cardiology consult today appreciated.
Diabetic diet
Will check blood sugars before meals and at bedtime
Will add insulin sliding scale
Will monitor blood sugar and adjust medications accordingly
Will update hemoglobin A1c in a.m.
Will continue home diabetic regimen
Will continue oral hypoglycemics
Will continue home insulin regimen
Pain meds as needed
DVT prophylaxis continue with Eliquis
CODE STATUS full code
Total time spent on today's encounter was 52 minutes which included time spent in counseling the patient/family regarding diagnosis and treatment plan as listed above, goals of care, and symptom management. Case was discussed with nursing staff,
specialists, and care coordinators/case management. All labs and imaging personally reviewed by me. Remainder the time spent in detailed review of previous records, lab data, imaging, and other medical provider documentation.
Anticipated Discharge: > 48 hours
Subjective/Interval History
-
Date of Service: January 06, 2024
Patient feels better in terms of shortness of breath. He is significant bradycardic. No chest pain.
Objective Data
-
Labs:
Laboratory Results
01/06/24
05:08
WBC 6.4
Hgb 8.5 L
Hct 27.0 L
Plt Count 294
Sodium 141
Potassium 4.0
Chloride 101
Carbon Dioxide 32 H
BUN 27 H
Creatinine 1.8 H
Glucose 91
Calcium 9.0
Vital Signs:
Vital Signs
Temp Pulse Resp BP Pulse Ox
97.7 F 40 16 145/55 93
01/06/24 07:55 01/06/24 07:55 01/06/24 07:55 01/06/24 07:55 01/06/24 07:55
I&O
01/05/24 01/06/24 01/07/24
06:59 06:59 06:59
Intake Total 360 / 360
Output Total 2480 / 2480
Balance -2119 / -2119
[2024-01-06] MEDS: APRESOLINE 10 MG IV (09:00)
--- NOTE | 2024-01-06 09:32 | CON.CAR ---
Addendum entered and electronically signed by Corey Lennon MD 01/06/24 11:59:
83-year-old man with November 2023 admission for acute on chronic HFpEF and new onset atrial fibrillation, now admitted with recurrent acute HFpEF.
PMH: HFpEF, paroxysmal atrial fibrillation October 2023 now on amiodarone and metoprolol, CAD with urgent CABG for left main disease and VF arrest 2014, left main and circumflex PCI following CABG 2014, cardiac catheterization with patent KINCAID to
LAD and patent stent September 2022, non-small cell lung cancer status post XRT November 2022, subsequent carboplatin Taxol and Keytruda, COPD, PAD status post bilateral CEA and lower extremity femoral bypass, small AAA, CKD 3A, hypertension,
hyperlipidemia, sleep apnea, diabetes, right bundle
PSH: CABG 2014, KINCAID to LAD, bilateral femoropopliteal bypass,
Allergies: ZACHARY inhibitors, angioedema, cephalosporins, contrast, sulfa, Keytruda
Outpatient meds: Amiodarone 200 mg a day, apixaban 2.5 twice daily, Plavix 75 mg a day, furosemide 80 mg 4 days a week 40 mg 3 days a week, glipizide, insulin, metoprolol tartrate 12.5 twice daily, rosuvastatin 40 mg tamsulosin 0.4
FH: Noncontributory
SH: , retired
ROS: Negative except as above
174/67, pulse 46, weight is 102.1 kg, was 98.2 kg at discharge on December 02, 104.3 kg on admission yesterday, intake and output -2.1 L
No distress, still mildly tachypneic, lungs are clear, neck veins approximately 10, systolic murmur, bradycardic, abdomen benign 1+ to 2+ edema pulses palpable neuro nonfocal, musculoskeletal intact
EKG sinus bradycardia, right bundle branch block, consider inferior [place]
Hemoglobin is 8.5, was 9.5 on December 02 BUN/creatinine 27 and 1.8, which is baseline, potassium 4, proBNP is 2850, was 5350 at presentation October
Chest x-ray CHF, port in place
Echo 11/28/2023 EF 50-55%, basal inferior hypokinesis, mild aortic stenosis, peak/mean gradient 19/10 mmHg aortic valve area 1.7 cm 2, normal atria normal RV, trace mitral regurgitation, trace TR
Impression:
Acute on chronic HFpEF
Paroxysmal atrial fibrillation on amiodarone
Chronic Eliquis anticoagulation
CAD
urgent CABGx1 KINCAID-LAD (VF/VT arrest) 04/2015
PCI LM and LCx 06/2015
s/p cath with patent KINCAID-LAD and stents, non new occlusive disease 10/22/22 Non-small cell lung cancer s/p radiation 11/2022 currently on Carbo/Taxol, Pembrolizumab
h/o VT/VF arrest in 2014 in the setting of left main stenosis
COPD/Emphysema
PVD - fem bypass and [facility] LCF 2016
CEA B/L 2018
AAA 3.2cm
CKD 3a
HTN
HLD
KIM
RBBB
DM2
Former smoker
Echo 10/22/2022�EF 65 to 70%.� Mild MR.� Aortic valve gradients 20/8 mmHg peak/mean consistent with mild aortic valve stenosis.� Trace TR with PA pressure 30 to 35 mmHg
Echo 11/28/2023: EF 50-55%, akinesis of the basal inferior wall, mild w/ peak/mean gradients 19/10 mmHg
Plan:
He presents now with recurrent acute HFpEF, is substantially improved after less than 24 hours of intravenous diuresis. Continue IV Lasix, admission furosemide was 80 mg alternating with 40, he will need to go home on a higher dose with CKD which
thus far has been stable.
He is bradycardic on metoprolol and amiodarone. He is in sinus rhythm. Will stop metoprolol.
Hopefully to transition to oral furosemide in a.m.
We will have case management look at SGLT 2 antagonist pricing -ideally he would be on this.
Original Note:
Consultation
Consultation Request
Date/Time Consultation Requested: 01/05/2024
Date/Time Consultation Performed: 01/05/2024
Requesting Provider: Dr. Gunderson
Performing Provider: Dr. Lennon
Reason for Consultation: CHF
Medical History
-
History of Present Illness:
HPI:Gonzalez is an 83 year old male with PMH of chronic HFpEF, paroxysmal atrial fibrillation, CAD s/p PCI and prior CABG, lung cancer, COPD, PVD, AAA, CKD, HTN, HLD, KIM, and DM2 who presented to [facility] for evaluation of SOB. He had been feeling poorly
at home for the past week with increased SOB and he called the cardiology office who recommended coming to the ER for evaluation. He noted weight gain of nearly 10lbs, with weight up to 229lbs. In ER, he was found to have evidence of acute heart
failure with elevated proBNP of 2850 and small pleural effusions on CXR. He was started on IV lasix and admitted for further evaluation and treatment. He notes good urine output overnight and his weight is down 4lbs. He reports improvement in his
breathing and edema. He has history of atrial fibrillation that was newly diagnosed 10/2023. He remained in afib at time of cardiology follow up appointment 12/16/2023 and was arranged for cardioversion, however on arrival to ER, he has spontaneously
converted to SR and remains in SR at time of examination. He is noted to have some bradycardia overnight with HRs at times into the 30s while sleeping. He reports no dizziness or lightheadedness, although does note some fatigue. No syncope or near
syncope.
PMH:
Chronic HFpEF
Paroxysmal atrial fibrillation
CAD
urgent CABGx1 KINCAID-LAD (VF/VT arrest) 04/2015
PCI LM and LCx 06/2015
s/p cath with patent KINCAID-LAD and stents, non new occlusive disease 10/22/22
Non-small cell lung cancer s/p radiation 11/2022 currently on Carbo/Taxol, Pembrolizumab
h/o VT/VF arrest in 2014 in the setting of left main stenosis
COPD/Emphysema
PVD - fem bypass and [facility] LCF 2016
CEA B/L 2018
AAA 3.2cm
CKD 3a
HTN
HLD
KIM
RBBB
DM2
Former smoker
Past Medical History
Past Medical History: Other (In HPI)
Past Surgical History: Cardiac (PCI of LM and LCx 06/2015, CABG x1 04/2015), Cholecystectomy and Other ( vein stripping, b/l CEA, lung biopsy, fem bypass and [facility] of LCF 2016)
Social History
Tobacco: Former Smoker
Alcohol: None
Drug: None
Personal:
Living: With Family
Employment: Retired
Family History
Family History: CAD
Allergies / Home Medications
Allergy/AdvReac Type Severity Reaction Status Date / Time
ZACHARY Inhibitors Allergy Shortness Verified 01/05/24 14:15
of
Breath-possible
angioedema-pharm
to review
Cephalosporins Allergy Eosinophili Verified 01/05/24 18:37
a
Iodinated Contrast Media Allergy affected Verified 01/05/24 14:15
[Iodinated Contrast Media - kidneys
Oral and]
sulfamethoxazole Allergy Rash Verified 01/05/24 14:15
[From Bactrim]
trimethoprim [From Bactrim] Allergy Rash Verified 01/05/24 14:15
�Medication �Instructions �Recorded �Confirmed �Type
rosuvastatin 40 mg tablet (Crestor) 40 mg PO DAILY@1600 High 01/22/19 01/05/24 History
cholesterol
tamsulosin 0.4 mg capsule 0.4 mg PO BID Urinary issue 07/15/22 01/05/24 History
glipizide 5 mg tablet, extended 5 mg PO BID Diabetes 11/17/22 01/05/24 History
release 24 hr
azelastine 137 mcg (0.1 %) nasal 1 spray intranasal BIDPRN PRN 09/14/23 01/05/24 History
spray aerosol congestion
apixaban 2.5 mg tablet (Eliquis) 2.5 mg PO BID #60 tabs 12/03/23 01/05/24 Rx
Lactobacillus-Bifidobacterium 30 1 cap PO DAILY 01/05/24 01/05/24 History
billion cell capsule,delayed
release (Ultimate Mena Probiotic)
Mucinex DM 1 tab PO BIDPRN PRN congestion 01/05/24 01/05/24 History
amiodarone 200 mg tablet (Pacerone) 200 mg PO DAILY 01/05/24 01/05/24 History
cholecalciferol (vitamin D3) 50 100 mcg PO NOON 01/05/24 01/05/24 History
mcg (2,000 unit) chewable tablet
clopidogrel 75 mg tablet 75 mg PO DAILY 01/05/24 01/05/24 History
furosemide 40 mg tablet 40 mg PO TUTHSA@0800 01/05/24 01/05/24 History
furosemide 40 mg tablet 80 mg PO SUMOWEFR@0800 01/05/24 01/05/24 History
insulin glargine 100 unit/mL (3 34 unit SC DAILY@1900 01/05/24 01/05/24 History
mL) subcutaneous pen (Lantus
Solostar U-100 Insulin)
lidocaine-prilocaine 2.5 %-2.5 % 1 applic topical DIRECTED 01/05/24 01/05/24 History
topical cream
metoprolol tartrate 25 mg tablet 12.5 mg PO BID Blood pressure 01/05/24 01/05/24 History
psyllium 1 packet PO QPMPRN PRN constipation 01/05/24 01/05/24 History
Review of Systems
-
History Source: Patient
All other systems: Negative unless noted
Physical Exam
Vital Signs
Temp Pulse Resp BP Pulse Ox
97.7 F 46 16 174/67 93
01/06/24 07:55 01/06/24 08:40 01/06/24 07:55 01/06/24 09:00 01/06/24 07:55
Lab Results
01/06/24 05:08
01/06/24 05:08
Troponin I 0.018 ng/ml 01/06/24 05:08
Max-N-Sfqyljsopsl Pept 2850 pg/ml 01/05/24 14:41
Physical Exam
General: Well Developed, Well Nourished and No Apparent Distress
HEENT: Normocephalic, Anicteric and Moist Mucous Membranes
Respiratory: Clear and Non Labored Respirations
Cardiac: S1/S2 and Regular Rhythm
Musculoskeletal: No Clubbing, No Cyanosis and No Edema
Skin: Warm and Dry
Neuro: AO x 3
Psych: Calm
Impression / Plan
-
PCP: Dr. Villa
Scrap Wheeler: Dr. Blackburn
Impression:
Presented with SOB, weight gain
Acute on chronic HFpEF
Paroxysmal atrial fibrillation
Chronic Eliquis anticoagulation
CAD
urgent CABGx1 KINCAID-LAD (VF/VT arrest) 04/2015
PCI LM and LCx 06/2015
s/p cath with patent KINCAID-LAD and stents, non new occlusive disease 10/22/22
Non-small cell lung cancer s/p radiation 11/2022 currently on Carbo/Taxol, Pembrolizumab
h/o VT/VF arrest in 2014 in the setting of left main stenosis
COPD/Emphysema
PVD - fem bypass and [facility] LCF 2016
CEA B/L 2018
AAA 3.2cm
CKD 3a
HTN
HLD
KIM
RBBB
DM2
Former smoker
Echo 10/22/2022�EF 65 to 70%.� Mild MR.� Aortic valve gradients 20/8 mmHg peak/mean consistent with mild aortic valve stenosis.� Trace TR with PA pressure 30 to 35 mmHg
Echo 11/28/2023: EF 50-55%, akinesis of the basal inferior wall, mild w/ peak/mean gradients 19/10 mmHg
Plan:
-Presented with weight gain, LE edema and worsening SOB. Admitted with acute heart failure exacerbation. ProBNP 2850.
-Continue IV lasix 40mg BID. As OP had been taking 40 mg TuThSa with 80mg MWFSun. Creat stable at 1.8
-Weight on arrival was 229lbs. Down to 225lbs 01/05. At discharge last admission, weight was 218lbs.
-Continue IV diuresis. Follow daily weights, I&Os.
-CHF education.
-Recent echo 11/28/2023 as noted above with preserved EF and mild . No need to repeat at this time.
-He has history of paroxysmal atrial fibrillation which was recently diagnosed 10/2023. He remained in afib at time of follow up visit, however was in SR by initial EKG this admission.
-Bradycardia noted overnight while sleeping on review of telemetry. HRs at times into 40s and 30s. Asymptomatic. HRs better throughout the day, however would consider holding lopressor.
-Continues on amiodarone 200mg daily.
-Continue Plavix 75mg daily and Eliquis 2.5mg BID for anticoagulation (Age, creat).
-Continue Crestor 40mg daily w/ h/o CAD.
-Patient concerned about UTI. UA concerning, urine culture pending.
-On 2L NC, wean as able.
HPI:Gonzalez is an 83 year old male with PMH of chronic HFpEF, paroxysmal atrial fibrillation, CAD s/p PCI and prior CABG, lung cancer, COPD, PVD, AAA, CKD, HTN, HLD, KIM, and DM2 who presented to [facility] for evaluation of SOB. He had been feeling poorly
at home for the past week with increased SOB and he called the cardiology office who recommended coming to the ER for evaluation. He noted weight gain of nearly 10lbs, with weight up to 229lbs. In ER, he was found to have evidence of acute heart
failure with elevated proBNP of 2850 and small pleural effusions on CXR. He was started on IV lasix and admitted for further evaluation and treatment. He notes good urine output overnight and his weight is down 4lbs. He reports improvement in his
breathing and edema. He has history of atrial fibrillation that was newly diagnosed 10/2023. He remained in afib at time of cardiology follow up appointment 12/16/2023 and was arranged for cardioversion, however on arrival to ER, he has spontaneously
converted to SR and remains in SR at time of examination. He is noted to have some bradycardia overnight with HRs at times into the 30s while sleeping. He reports no dizziness or lightheadedness, although does note some fatigue. No syncope or near
syncope.
Data Reviewed
-
EKG: Tracing Personally Visualized and interpreted
Radiology: Report Reviewed by me
Labs: Labs Reviewed by me
Old Records: Reviewed
[2024-01-06 09:52] LABS: Glucose - Point of Care 177 mg/dl (70-99)
--- NOTE | 2024-01-06 10:47 | W.PN.UPDATE ---
Update Note
Progress Note Update
83-year-old man with October 2023 admission for acute on chronic HFpEF and new onset atrial fibrillation, now admitted with recurrent acute HFpEF.
PMH: HFpEF, paroxysmal atrial fibrillation October 2023 now on amiodarone and metoprolol, CAD with urgent CABG for left main disease and VF arrest 2014, left main and circumflex PCI following CABG 2014, cardiac catheterization with patent KINCAID to
LAD and patent stent September 2022, non-small cell lung cancer status post XRT November 2022, subsequent carboplatin Taxol and Keytruda, COPD, PAD status post bilateral CEA and lower extremity femoral bypass, small AAA, CKD 3A, hypertension,
hyperlipidemia, sleep apnea, diabetes, right bundle
PSH: CABG 2014, KINCAID to LAD, bilateral femoropopliteal bypass,
Allergies: ZACHARY inhibitors, angioedema, cephalosporins, contrast, sulfa
Outpatient meds: Amiodarone 200 mg a day, apixaban 2.5 twice daily, Plavix 75 mg a day, furosemide 80 mg 4 days a week 40 mg 3 days a week, glipizide, insulin, metoprolol tartrate 12.5 twice daily, rosuvastatin 40 mg tamsulosin 0.4
FH: Noncontributory
SH: , retired
ROS: Negative except as above
174/67, pulse 46, weight is 102.1 kg, was 98.2 kg at discharge on December 02, 104.3 kg on admission yesterday, intake and output -2.1 L
EKG sinus bradycardia, right bundle branch block, consider inferior [place]
Hemoglobin is 8.5, was 9.5 on December 02 BUN/creatinine 27 and 1.8, which is baseline, potassium 4, proBNP is 2850, was 5350 at presentation October
Chest x-ray CHF, port in place
Echo 11/28/2023 EF 50-55%, basal inferior hypokinesis, mild aortic stenosis, peak/mean gradient 19/10 mmHg aortic valve area 1.7 cm 2, normal atria normal RV, trace mitral regurgitation, trace TR
[2024-01-06 11:45] LABS: Glucose - Point of Care 212 mg/dl (70-99)
[2024-01-06 12:20] LABS: Glycohemoglobin (HgbA1c) 7.5 % (4.0-5.6)
[2024-01-06] MEDS: NOVOLOG FLEXPEN-MODERATE RESISTANCE 3 UNITS SC (12:29)
[2024-01-06] MEDS: VITAMIN D3 (cholecalciferol) 100 MCG PO (12:29)
--- NOTE | 2024-01-06 14:43 | CM ---
Alert awake oriented patient who lives with his Karma who lives in a 1 story home with 2 step to enter and bed and bathroom. on first. He is independent in driving and in all activities of daily living.He was offered VN he requested
resumption [facility].
[facility] hx / No SNF history
Pharmacy [facility]
PCP DR Rodrigo Gaspar
PLAN Home [facility] VN
--- NOTE | 2024-01-06 15:25 | PTOTSP ---
pt currently requires supervision to no assistance to complete simple ADLs, functional transfers, ambulation. pt currently on 2LO2. attempted activity on room air, pt asymptomatic, though SPO2 dropped. RN notified. will defer to PT for endurance
training, no acute OT needs identified will sign off.
[2024-01-06] MEDS: CRESTOR 40 MG PO (15:51)
[2024-01-06 16:51] LABS: Glucose - Point of Care 83 mg/dl (70-99)
[2024-01-06] MEDS: GLUCOTROL XL (EXTENDED RELEASE) 5 MG PO (17:35)
[2024-01-06 21:10] LABS: Glucose - Point of Care 84 mg/dl (70-99)
[2024-01-06] MEDS: LANTUS SC (21:41)
[2024-01-07 03:26] VITALS: BP 124/53
[2024-01-07 04:09] LABS: Glucose - Point of Care 93 mg/dl (70-99)
[2024-01-07 06:00] VITALS: BMI 30.5
[2024-01-07 07:08] LABS: Glucose - Point of Care 80 mg/dl (70-99)
[2024-01-07 07:15] VITALS: BP 145/63
[2024-01-07 08:33] LABS: Hematocrit 29.4 % (39.0-52.0); Mean Corp Hgb Conc. 30.6 g/dL (33.0-37.0); Mean Corpuscular Hgb 29.1 pg (27.0-31.0); Mean Corpuscular Volume 95.1 fL (80.0-94.0); Mean Platelet Volume 9.1 fL (7.4-10.4); Platelet Count 305 10^3/uL (130-400); Red Blood Cell Count 3.09 10^6/uL (4.70-6.10); Red Cell Dist. Width 15.5 % (11.5-14.5)
--- NOTE | 2024-01-07 08:40 | W.PN.HOSP.TC ---
Addendum entered and electronically signed by Otis Gunderson MD 01/07/24 18:01:
Also decrease Lantus to 10 units due to hypoglycemia.
Correction--> time spent 35 minutes today(not 52).
Addendum entered and electronically signed by Otis Gunderson MD 01/07/24 17:59:
Patient denies sob, less swelling legs, able to ambulate, no cp. Afebrile. Oxygen on today.
Original Note:
Today's Communication/Plan
-
IV Lasix.
Assessment / Plan
Assessment / Plan
Physical exam:
General: No distress
HEENT: Normocephalic, Atraumatic and Moist Mucous Membranes
Respiratory: No crackles; Negative Wheezes or Rhonchi
Cardiac: Irregular rate and rhythm and S1/S2, increased JVP.
GI: Soft, Nontender and Distended
Musculoskeletal: Bilateral lower extremity edema improving. No Clubbing, No Cyanosis
Skin: Venous stasis dermatitis
Neuro: Awake, Alert and Oriented. No gross neurological deficits.
Psych: Calm
A/P:
Impression:
Acute diastolic congestive heart failure
Acute hypoxic respiratory sufficiency
Chronic kidney disease stage III
Diabetes mellitus type 2 with hyperglycemia
Anemia
Sinus bradycardia
Asymptomatic bacteriuria, GNR in urine
Conditions prior to presentation:
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
Paroxysmal AFib
CAD s/p CABG KINCAID-LAD 04/2015. PCI LM and LCX 06/2015. 09/2022 post cath with patent KINCAID to LAD and stent and no new obstructive CAD.
History of VT/VF cardiac arrest 04/2015 underwent urgent CABG as above.
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
Former smoker
HTN
Hypercholesterolemia
NIDDM
BPH
RBBB
PVD s/p vein stripping, Fem bypass 2019
b/l CEA 2018
Chronic kidney disease
AAA
PLAN:
IV diuretics--> IV Lasix 40 mg twice a day (already given Lasix 80 mg iv x1 in the ED)
Will switch to po diuretics tomorrow-prob torsemide
Discussed with cardiology in person today 01/06.
Check home oxygen needs
No need to treat with antibiotics regardless of final urine cultures. I asked today 01/06 for symptoms UTI and he is completely asymptomatic and afebrile and normal WBC.
Monitor strict I/O
Check bladder scan as well as UA per patient request.
Monitor daily weight
Monitor renal function and electrolytes
Reviewed latest echocardiogram on our system--> on 11/27 this year EF 50 to 55%, mild aortic stenosis, no pericardial effusion.
Continue guideline-directed medical therapy for heart failure (GDMT)
Fluid restriction
Salt restriction
Heart failure education
Follow up clinical response
Seen and reviewed chest x-ray
Seen and reviewed twelve-lead EKG
Continue with antiarrhythmics and anticoagulants. Cardiology discontinued beta-howard today.
Cardiology consult today appreciated.
Diabetic diet
Will check blood sugars before meals and at bedtime
Will add insulin sliding scale
Will monitor blood sugar and adjust medications accordingly
Will update hemoglobin A1c in a.m.
Will continue home diabetic regimen
Will continue oral hypoglycemics
Will continue home insulin regimen
Pain meds as needed
DVT prophylaxis continue with Eliquis
CODE STATUS full code
Total time spent on today's encounter was 52 minutes which included time spent in counseling the patient/family regarding diagnosis and treatment plan as listed above, goals of care, and symptom management. Case was discussed with nursing staff,
specialists, and care coordinators/case management. All labs and imaging personally reviewed by me. Remainder the time spent in detailed review of previous records, lab data, imaging, and other medical provider documentation.
Anticipated Discharge: Within 24 hours
Subjective/Interval History
-
Date of Service: January 07, 2024
Objective Data
-
Labs:
Laboratory Results
01/07/24
07:17
WBC Pending
Hgb Pending
Hct Pending
Plt Count Pending
Sodium Pending
Potassium Pending
Chloride Pending
Carbon Dioxide Pending
BUN Pending
Creatinine Pending
Glucose Pending
Calcium Pending
Vital Signs:
Vital Signs
Temp Pulse Resp BP Pulse Ox
98.1 F 54 18 145/63 94
01/07/24 07:15 01/07/24 07:15 01/07/24 07:15 01/07/24 07:15 01/07/24 07:15
I&O
01/06/24 01/07/24 01/08/24
06:59 06:59 06:59
Intake Total 360 / 360 840 / 840
Output Total 2480 / 2480 3200 / 3200
Balance -2120 / -2120 -2360 / -2360
[2024-01-07 08:56] LABS: Blood Urea Nitrogen 24 mg/dl (9-20); Carbon Dioxide 36 mmol/L (22-30); Chloride 97 mmol/L (98-107); Estimated Creatinine Clearance 43 ml/min; Glucose 67 mg/dl (70-99); Potassium 4.1 mmol/L (3.5-5.1); Sodium 137 mmol/L (135-145); eGFR 42.75
--- NOTE | 2024-01-07 09:00 | W.PN.CARDCBS ---
Addendum entered and electronically signed by Leroy Quezada MD 01/07/24 10:24:
patient seen and examined
agree with MARY Fleming's notes and assessment
agree with MARY Fleming's plan
feeling better
edema improved
exam:
LE edema improved
wrinkling bilaterally on legs
tele SR
cor regular no m
lungs ctab
abd soft nt nd
non focal neurologically
Impression:
Presented with SOB, weight gain
Acute on chronic HFpEF
Paroxysmal atrial fibrillation
Chronic Eliquis anticoagulation
CAD
urgent CABGx1 KINCAID-LAD (VF/VT arrest) 04/2015
PCI LM and LCx 06/2015
s/p cath with patent KINCAID-LAD and stents, non new occlusive disease 10/22/22 Non-small cell lung cancer s/p radiation 11/2022 currently on Carbo/Taxol, Pembrolizumab
h/o VT/VF arrest in 2014 in the setting of left main stenosis
COPD/Emphysema
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
CEA B/L 2018
AAA 3.2cm
CKD 3a
HTN
HLD
KIM
RBBB
DM2
Former smoker
Echo 10/22/2022�EF 65 to 70%.� Mild MR.� Aortic valve gradients 20/8 mmHg peak/mean consistent with mild aortic valve stenosis.� Trace TR with PA pressure 30 to 35 mmHg
Echo 11/28/2023: EF 50-55%, akinesis of the basal inferior wall, mild w/ peak/mean gradients 19/10 mmHg
Plan:
-he is responding well to IV lasix, continue. dry weight from last admission was 216 pounds. Cr pending 01/06
-prior to admission was po lasix 40 mg TuThSa with 80mg MWFSun. he reports every time he leaves the hospital he feels as though the po lasix does not work for him. would consider transition to torsemide 20mg daily upon DC. Approaching DC likely
sunday 01/07
-wean supp O2 as able
-CHF education
-Recent echo 11/28/2023 as noted above with preserved EF and mild . No need to repeat at this time.
-He has history of paroxysmal atrial fibrillation which was recently diagnosed 10/2023. with bradycardia in SR upon arrival. lopressor stopped this admission. remains SB with HRs in 50s. could consider decreasing amiodarone dose to 100mg daily
-Continue Plavix 75mg daily and Eliquis 2.5mg BID for anticoagulation (Age, creat).
-Continue Crestor 40mg daily w/ h/o CAD.
-Patient concerned about UTI. UA concerning, urine culture pending.
-OP cardiac follow up has been arranged
Original Note:
Today's Communication / Plan
-
continue IV lasix
consider transition to torsemide upon DC
wean supp O2
continue eliquis, plavix
remains aidan. could consider decreasing amio dose to 100mg daily pending HR trends
Impression / Plan
-
PCP: Dr. Villa
Rat Breeder: Dr. Blackburn
Impression:
Presented with SOB, weight gain
Acute on chronic HFpEF
Paroxysmal atrial fibrillation
Chronic Eliquis anticoagulation
CAD
urgent CABGx1 KINCAID-LAD (VF/VT arrest) 04/2015
PCI LM and LCx 06/2015
s/p cath with patent KINCAID-LAD and stents, non new occlusive disease 10/22/22
Non-small cell lung cancer s/p radiation 11/2022 currently on Carbo/Taxol, Pembrolizumab
h/o VT/VF arrest in 2014 in the setting of left main stenosis
COPD/Emphysema
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
CEA B/L 2018
AAA 3.2cm
CKD 3a
HTN
HLD
KIM
RBBB
DM2
Former smoker
Echo 10/22/2022�EF 65 to 70%.� Mild MR.� Aortic valve gradients 20/8 mmHg peak/mean consistent with mild aortic valve stenosis.� Trace TR with PA pressure 30 to 35 mmHg
Echo 11/28/2023: EF 50-55%, akinesis of the basal inferior wall, mild w/ peak/mean gradients 19/10 mmHg
Plan:
-he is responding well to IV lasix, continue. dry weight from last admission was 216 pounds. Cr pending 01/06
-prior to admission was po lasix 40 mg TuThSa with 80mg MWFSun. he reports every time he leaves the hospital he feels as though the po lasix does not work for him. would consider transition to torsemide upon DC
-wean supp O2 as able
-CHF education
-Recent echo 11/28/2023 as noted above with preserved EF and mild . No need to repeat at this time.
-He has history of paroxysmal atrial fibrillation which was recently diagnosed 10/2023. with bradycardia in SR upon arrival. lopressor stopped this admission. remains SB with HRs in 50s. could consider decreasing amiodarone dose to 100mg daily
-Continue Plavix 75mg daily and Eliquis 2.5mg BID for anticoagulation (Age, creat).
-Continue Crestor 40mg daily w/ h/o CAD.
-Patient concerned about UTI. UA concerning, urine culture pending.
-OP cardiac follow up has been arranged
HPI:Gonzalez is an 83 year old male with PMH of chronic HFpEF, paroxysmal atrial fibrillation, CAD s/p PCI and prior CABG, lung cancer, COPD, PVD, AAA, CKD, HTN, HLD, KIM, and DM2 who presented to [facility] for evaluation of SOB. He had been feeling poorly
at home for the past week with increased SOB and he called the cardiology office who recommended coming to the ER for evaluation. He noted weight gain of nearly 10lbs, with weight up to 229lbs. In ER, he was found to have evidence of acute heart
failure with elevated proBNP of 2850 and small pleural effusions on CXR. He was started on IV lasix and admitted for further evaluation and treatment. He notes good urine output overnight and his weight is down 4lbs. He reports improvement in his
breathing and edema. He has history of atrial fibrillation that was newly diagnosed 10/2023. He remained in afib at time of cardiology follow up appointment 12/16/2023 and was arranged for cardioversion, however on arrival to ER, he has spontaneously
converted to SR and remains in SR at time of examination. He is noted to have some bradycardia overnight with HRs at times into the 30s while sleeping. He reports no dizziness or lightheadedness, although does note some fatigue. No syncope or near
syncope.
Progress Note - Rat Breeder
Subjective
Date of Service: January 07, 2024
denies CP, palpitations. reports good urine output overnight. SOB and LE edema improving
Objective
Labs:
01/07/24 07:17
01/07/24 07:17
Labs
Hgb 9.0 g/dL (13.0-18.0) L 01/07/24 07:17
Hct 29.4 % (39.0-52.0) L 01/07/24 07:17
Plt Count 305 10^3/uL (130-400) 01/07/24 07:17
Sodium 137 mmol/L (135-145) 01/07/24 07:17
Potassium 4.1 mmol/L (3.5-5.1) 01/07/24 07:17
BUN 24 mg/dl (9-20) H 01/07/24 07:17
Creatinine 1.6 mg/dL (0.7-1.3) H 01/07/24 07:17
Glucose 67 mg/dl (70-99) L 01/07/24 07:17
Troponins
01/05/24 01/06/24
14:41 05:08
Troponin I 0.022 0.018
Vital Signs and I&O:
Vital Signs
Temp Pulse Resp BP Pulse Ox
98.1 F 54 18 145/63 94
01/07/24 07:15 01/07/24 07:15 01/07/24 07:15 01/07/24 07:15 01/07/24 07:15
Vital Signs
Temp Pulse Resp BP Pulse Ox
98.1 F 54 18 145/63 94
01/07/24 07:15 01/07/24 07:15 01/07/24 07:15 01/07/24 07:15 01/07/24 07:15
Intake & Output
01/05/24 01/06/24 01/07/24 01/08/24
07:59 07:59 07:59 07:59
Intake Total 360 / 360 840 / 840
Output Total 2480 / 2480 3200 / 3200
Balance -2120 / -2120 -2360 / -2360
Physical Exam
Physical Exam
GEN: No distress, awake, alert, oriented x3. on supp O2
HEENT: supple, anicteric, mmm, eomi
LUNGS: Crackles B/L bases, no wheezes
CV: Reg and aidan, S1/S2, 1/6 syst LSB
ABD: soft, BS+, NT/ND
EXT: No cyanosis, clubbing. 2+ edema of B/L LE
NEURO: Gross non-focal
SKIN: Warm, pink, dry. No rash
[2024-01-07] MEDS: NOVOLOG FLEXPEN-MODERATE RESISTANCE SC ×2 (09:17→16:49)
[2024-01-07] MEDS: LASIX 40 MG IV ×2 (10:05→16:50)
[2024-01-07] MEDS: ELIQUIS 2.5 MG PO ×2 (10:05→20:17)
[2024-01-07] MEDS: GLUCOTROL XL (EXTENDED RELEASE) 5 MG PO (10:05)
[2024-01-07] MEDS: FLOMAX 0.400000000000000022 MG PO ×2 (10:05→20:17)
[2024-01-07] MEDS: PACERONE 200 MG PO (10:11)
[2024-01-07] MEDS: VISBIOME 1 CAP PO (10:11)
[2024-01-07] MEDS: PLAVIX 75 MG PO (10:11)
[2024-01-07] MEDS: FLUSH (NSS) 2 FLUSH IV (10:12)
[2024-01-07 11:05] VITALS: BP 155/59
[2024-01-07 11:22] LABS: Glucose - Point of Care 206 mg/dl (70-99)
[2024-01-07] MEDS: NOVOLOG FLEXPEN-MODERATE RESISTANCE 3 UNITS SC (12:53)
[2024-01-07] MEDS: VITAMIN D3 (cholecalciferol) 100 MCG PO (12:54)
--- NOTE | 2024-01-07 13:34 | CM ---
Addendum entered by Kandy Coughlin 01/07/24 14:43:
IMM completed and signed form placed on chart. patient updated regarding cost of medication. CM will continue to follow for discharge planning needs.
Original Note:
Patient with home assessment for Oxygen and patient did not qualify. CM obtained prices from [facility] re Jardiance 10mg 114.82$, Farxiga 5mg 109.41$ no coverage for Farxiga 10 mg per [facility]. Patient is accepted by [facility] for AMY when discharged.
CM will review and follow for discharge planning needs.
Plan; home with [facility]
[2024-01-07 15:15] VITALS: BP 123/57
[2024-01-07 16:23] LABS: Glucose - Point of Care 114 mg/dl (70-99)
[2024-01-07] MEDS: CRESTOR 40 MG PO (16:50)
[2024-01-07 19:41] VITALS: BP 120/57
[2024-01-07 21:22] LABS: Glucose - Point of Care 138 mg/dl (70-99)
[2024-01-07] MEDS: LANTUS 0.100000000000000006 UNITS SC (21:52)
[2024-01-07 23:58] VITALS: BP 116/46
[2024-01-08 03:48] VITALS: BP 121/55
[2024-01-08 03:57] LABS: Glucose - Point of Care 112 mg/dl (70-99)
[2024-01-08 04:43] LABS: % Basophils 0.8 % (0-2); % Eosinophils 4.1 % (0-6); % Immature Granulocytes 1.4 % (0-0.5); % Lymphocytes 14.8 % (20.5-51.1); % Monocytes 15.1 % (1.7-9.3); % Neutrophils 63.8 % (42.2-75.2); Absolute Basophils 0.1 10^3/uL (0-0.2); Absolute Eosinophils 0.3 10^3/uL (0-0.7); Absolute Immature Granulocytes 0.1 10^3/uL (0-0.05); Absolute Lymphocytes 1.2 10^3/uL (1.2-3.4); Absolute Monocytes 1.2 10^3/uL (0.1-0.6); Absolute Neutrophils 5.1 10^3/uL (1.4-6.5); Hematocrit 29.6 % (39.0-52.0); Hemoglobin 9.1 g/dL (13.0-18.0); Mean Corp Hgb Conc. 30.7 g/dL (33.0-37.0); Mean Corpuscular Hgb 29.1 pg (27.0-31.0); Mean Corpuscular Volume 94.6 fL (80.0-94.0); Mean Platelet Volume 8.9 fL (7.4-10.4); Nucleated Red Blood Cells % 0 % (-); Platelet Count 298 10^3/uL (130-400); Red Blood Cell Count 3.13 10^6/uL (4.70-6.10); Red Cell Dist. Width 15.7 % (11.5-14.5); White Blood Cell Count 7.9 10^3/uL (4.8-10.8)
[2024-01-08 05:13] LABS: Blood Urea Nitrogen 26 mg/dl (9-20); Calcium 8.9 mg/dl (8.4-10.2); Carbon Dioxide 37 mmol/L (22-30); Chloride 95 mmol/L (98-107); Estimated Creatinine Clearance 43 ml/min; Glucose 102 mg/dl (70-99); Magnesium 2.6 mg/dl (1.6-2.3); Potassium 4.4 mmol/L (3.5-5.1); Sodium 137 mmol/L (135-145); eGFR 42.75
[2024-01-08 06:00] VITALS: BMI 30.2
[2024-01-08 07:05] VITALS: BP 136/52
[2024-01-08 07:05] LABS: Glucose - Point of Care 111 mg/dl (70-99)
[2024-01-08] MEDS: NOVOLOG FLEXPEN-MODERATE RESISTANCE SC (08:10)
--- NOTE | 2024-01-08 08:53 | W.PN.HOSP.TC ---
Today's Communication/Plan
-
Discharge planning today
Assessment / Plan
Assessment / Plan
Physical exam:
General: No distress
HEENT: Normocephalic, Atraumatic and Moist Mucous Membranes
Respiratory: No crackles; Negative Wheezes or Rhonchi
Cardiac: Irregular rate and rhythm and S1/S2, increased JVP.
GI: Soft, Nontender and Distended
Musculoskeletal: Bilateral lower extremity edema improving. No Clubbing, No Cyanosis
Skin: Venous stasis dermatitis
Neuro: Awake, Alert and Oriented. No gross neurological deficits.
Psych: Calm
A/P:
Impression:
Acute diastolic congestive heart failure
Acute hypoxic respiratory sufficiency
Chronic kidney disease stage III
Diabetes mellitus type 2 with hyperglycemia
Anemia
Sinus bradycardia
Asymptomatic bacteriuria, GNR in urine
Conditions prior to presentation:
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
Paroxysmal AFib
CAD s/p CABG KINCAID-LAD 04/2015. PCI LM and LCX 06/2015. 09/2022 post cath with patent KINCAID to LAD and stent and no new obstructive CAD.
History of VT/VF cardiac arrest 04/2015 underwent urgent CABG as above.
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
Former smoker
HTN
Hypercholesterolemia
NIDDM
BPH
RBBB
PVD s/p vein stripping, Fem bypass 2019
b/l CEA 2018
Chronic kidney disease
AAA
PLAN:
IV diuretics--> IV Lasix 40 mg twice a day (already given Lasix 80 mg iv x1 in the ED)
Will switch to po diuretics today-Per cardiology torsemide
Cardiology cleared for discharge today on 01/07
Discussed with cardiology in person 01/06.
Check home oxygen needs
No need to treat with antibiotics regardless of final urine cultures. I asked today 01/06 for symptoms UTI and he is completely asymptomatic and afebrile and normal WBC.
Monitor strict I/O
Check bladder scan as well as UA per patient request.
Monitor daily weight
Monitor renal function and electrolytes
Reviewed latest echocardiogram on our system--> on 11/27 this year EF 50 to 55%, mild aortic stenosis, no pericardial effusion.
Continue guideline-directed medical therapy for heart failure (GDMT)
Fluid restriction
Salt restriction
Heart failure education
Follow up clinical response
Seen and reviewed chest x-ray
Seen and reviewed twelve-lead EKG
Continue with antiarrhythmics and anticoagulants. Cardiology discontinued beta-howard today.
Cardiology consult today appreciated.
Diabetic diet
Will check blood sugars before meals and at bedtime
Will add insulin sliding scale
Will monitor blood sugar and adjust medications accordingly
Will update hemoglobin A1c in a.m.
Will continue home diabetic regimen
Will continue oral hypoglycemics
Will continue home insulin regimen
Pain meds as needed
DVT prophylaxis continue with Eliquis
CODE STATUS full code
Anticipated Discharge: Today
Subjective/Interval History
-
Date of Service: January 08, 2024
Denies chest pain or shortness of breath.
Objective Data
-
Labs:
Laboratory Results
01/08/24
04:16
WBC 7.9
Hgb 9.1 L
Hct 29.6 L
Plt Count 298
Sodium 137
Potassium 4.4
Chloride 95 L
Carbon Dioxide 37 H
BUN 26 H
Creatinine 1.6 H
Glucose 102 H
Calcium 8.9
Vital Signs:
Vital Signs
Temp Pulse Resp BP Pulse Ox
98.2 F 62 20 136/52 92
01/08/24 07:05 01/08/24 07:05 01/08/24 07:05 01/08/24 07:05 01/08/24 07:05
I&O
01/07/24 01/08/24 01/09/24
06:59 06:59 06:59
Intake Total 840 / 840 780 / 780
Output Total 3200 / 3200 2800 / 2800
Balance -2360 / -2360 -2019 /
--- NOTE | 2024-01-08 09:07 | W.PN.CARDCBS ---
Today's Communication / Plan
-
P.o. torsemide recommended rather than p.o. Lasix as Lasix has not prevent heart failure admissions in the past clinically
Nearing discharge
1 coagulation
Impression / Plan
-
PCP: Dr. Villa
Engineering Technologist: Dr. Blackburn
Impression:
Presented with SOB, weight gain
Acute on chronic HFpEF
Paroxysmal atrial fibrillation
Chronic Eliquis anticoagulation
CAD
urgent CABGx1 KINCAID-LAD (VF/VT arrest) 04/2015
PCI LM and LCx 06/2015
s/p cath with patent KINCAID-LAD and stents, non new occlusive disease 10/22/22
Non-small cell lung cancer s/p radiation 11/2022 currently on Carbo/Taxol, Pembrolizumab
h/o VT/VF arrest in 2014 in the setting of left main stenosis
COPD/Emphysema
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
CEA B/L 2018
AAA 3.2cm
CKD 3a
HTN
HLD
KIM
RBBB
DM2
Former smoker
Echo 10/22/2022�EF 65 to 70%.� Mild MR.� Aortic valve gradients 20/8 mmHg peak/mean consistent with mild aortic valve stenosis.� Trace TR with PA pressure 30 to 35 mmHg
Echo 11/28/2023: EF 50-55%, akinesis of the basal inferior wall, mild w/ peak/mean gradients 19/10 mmHg
Plan:
-he is responding well to IV lasix, will transition to p.o. torsemide 20 mg daily today and I have no objection to discharge
-Would consider transition to torsemide 20 mg daily at discharge
-wean supp O2 as able
-CHF education
-Recent echo 11/28/2023 as noted above with preserved EF and mild . No need to repeat at this time.
-He has history of paroxysmal atrial fibrillation which was recently diagnosed 10/2023. with bradycardia in SR upon arrival. lopressor stopped this admission. remains SB with HRs in 50s. could consider decreasing amiodarone dose to 100mg daily. He
tells me that he had a cardioversion arranged for later this week and I told him he is in sinus rhythm and does not need to present for the cardioversion but can present and should present for his office visit with Dr. Farfan in a couple of weeks as
he is in sinus rhythm.
-Continue Plavix 75mg daily and Eliquis 2.5mg BID for anticoagulation (Age, creat).
-Continue Crestor 40mg daily w/ h/o CAD.
-Patient concerned about UTI. UA concerning, urine culture pending.
-OP cardiac follow up has been arranged
HPI:Gonzalez is an 83 year old male with PMH of chronic HFpEF, paroxysmal atrial fibrillation, CAD s/p PCI and prior CABG, lung cancer, COPD, PVD, AAA, CKD, HTN, HLD, KIM, and DM2 who presented to [facility] for evaluation of SOB. He had been feeling poorly
at home for the past week with increased SOB and he called the cardiology office who recommended coming to the ER for evaluation. He noted weight gain of nearly 10lbs, with weight up to 229lbs. In ER, he was found to have evidence of acute heart
failure with elevated proBNP of 2850 and small pleural effusions on CXR. He was started on IV lasix and admitted for further evaluation and treatment. He notes good urine output overnight and his weight is down 4lbs. He reports improvement in his
breathing and edema. He has history of atrial fibrillation that was newly diagnosed 10/2023. He remained in afib at time of cardiology follow up appointment 12/16/2023 and was arranged for cardioversion, however on arrival to ER, he has spontaneously
converted to SR and remains in SR at time of examination. He is noted to have some bradycardia overnight with HRs at times into the 30s while sleeping. He reports no dizziness or lightheadedness, although does note some fatigue. No syncope or near
syncope.
Progress Note - Engineering Technologist
Subjective
Date of Service: January 08, 2024
Feels well
Diuresis noted
Objective
Labs:
01/08/24 04:16
01/08/24 04:16
Labs
Hgb 9.1 g/dL (13.0-18.0) L 01/08/24 04:16
Hct 29.6 % (39.0-52.0) L 01/08/24 04:16
Plt Count 298 10^3/uL (130-400) 01/08/24 04:16
Sodium 137 mmol/L (135-145) 01/08/24 04:16
Potassium 4.4 mmol/L (3.5-5.1) 01/08/24 04:16
BUN 26 mg/dl (9-20) H 01/08/24 04:16
Creatinine 1.6 mg/dL (0.7-1.3) H 01/08/24 04:16
Glucose 102 mg/dl (70-99) H 01/08/24 04:16
Troponins
01/05/24 01/06/24
14:41 05:08
Troponin I 0.022 0.018
Vital Signs and I&O:
Vital Signs
Temp Pulse Resp BP Pulse Ox
98.2 F 62 20 136/52 92
01/08/24 07:05 01/08/24 07:05 01/08/24 07:05 01/08/24 07:05 01/08/24 07:05
Vital Signs
Temp Pulse Resp BP Pulse Ox
98.2 F 62 20 136/52 92
01/08/24 07:05 01/08/24 07:05 01/08/24 07:05 01/08/24 07:05 01/08/24 07:05
Intake & Output
01/06/24 01/07/24 01/08/24 01/09/24
06:59 06:59 06:59 06:59
Intake Total 360 / 360 840 / 840 780 / 780
Output Total 2480 / 2480 3200 / 3200 2800 / 2800
Balance -2119 / -2119 -2359 / -2359 -2019 /
Physical Exam
Physical Exam
heent ncat
jvp 6
cor regular
lungs ctab
abd soft nt nd
no ext edema
aao x 3
non focal neurologically
[2024-01-08] MEDS: FLOMAX 0.400000000000000022 MG PO (09:12)
[2024-01-08] MEDS: LASIX 40 MG IV (09:12)
[2024-01-08] MEDS: ELIQUIS 2.5 MG PO (09:12)
[2024-01-08] MEDS: VISBIOME 1 CAP PO (09:13)
[2024-01-08] MEDS: PACERONE 200 MG PO (09:13)
[2024-01-08] MEDS: FLUSH (NSS) 2 FLUSH IV (09:13)
[2024-01-08] MEDS: PLAVIX 75 MG PO (09:13)
[2024-01-08 11:05] VITALS: BP 100/57
[2024-01-08 11:31] LABS: Glucose - Point of Care 210 mg/dl (70-99)
[2024-01-08] MEDS: VITAMIN D3 (cholecalciferol) 100 MCG PO (12:50)
[2024-01-08] MEDS: NOVOLOG FLEXPEN-MODERATE RESISTANCE 3 UNITS SC (12:50)
--- NOTE | 2024-01-08 13:22 | CM ---
Patient seen at bedside. IMM completed 01/07/24. Patient anticipates returning home with [facility] and no home O2. CM will continue to follow for discharge planning needs.
Plan; home with [facility].
--- NOTE | 2024-01-08 13:40 | W.DCSUMMARY ---
Discharge Summary
Discharge Data
Date of Admission: 01/05/24
Date of Discharge: 01/08/24
-
Pending Results: No
Hospital Course
Patient 83 years old male with history of CHF A-fib, CAD, VT/VF arrest, PVD, hypertension, hyperlipidemia, KIM, CKD, diabetes mellitus, presented to the hospital with worsening shortness of breath and found to be in acute on chronic diastolic
congestive heart failure. He was aggressively diuresed with IV Lasix. He had negative urine output balance. His weight went down appropriately. He improved substantially symptomatically and his peripheral edema decreased. Cardiology recommended
to switch his diuretics to oral torsemide upon discharge. Patient also was bradycardic and beta-howard was discontinued by cardiology. He has remained in normal sinus rhythm. He initially thought that he might have some UTI and urinalysis was
sent but upon discussion with patient he did not have any urinary tract infection symptoms at all and he remained afebrile and normal WBC so most likely had an asymptomatic bacteriuria and no need to treat with antibiotics-he does have an outpatient
urologist and he does need what symptoms to look for in case he develops UTI. Otherwise he is hemodynamically stable and afebrile and he has participated with PT and OT while in the hospital and no needs identified. industrial cafeteria manager for any discharge
needs upon discharge. We assessed him for the need for home oxygen and he did not require any oxygen. Cardiology cleared him for discharge today. He will be discharged in stable condition today.
Discharge duration: 35 minutes
Discharge Plan
-
Patient Disposition: Home with Home Care
Discharge Diagnosis/Procedures: Acute on chronic diastolic congestive heart failure. Acute hypoxic respiratory insufficiency chronic kidney disease stage III. Diabetes mellitus type 2. Sinus pericardia. Asymptomatic bacteriuria, Escherichia
Coli. Anemia.
Diet: Low Cholesterol, 2 Gram Sodium and Diabetic, Carb Controlled
Activity: As tolerated
Driving Restrictions: As prior to admission
Blood Work: Please PCP to order CBC, BMP, magnesium within 1 week.
Specialty Instructions: Weigh Daily- Call MD for wt gain/loss 3 lbs overnight/5 lbs in 1 week
Instructions: *[facility] Heart Failure Instructions
Referrals:
Renato Blackburn MD [Active] - 01/17/24 12:40 pm (You have a follow up with Dr. Balckburn at the [place] office. Please call with questions. )
Rodrigo Villa, DO [Family Provider] - in less than 1 week
Prescriptions:
New
torsemide 20 mg tablet
20 mg PO DAILY Qty: 30 0RF
Continued
rosuvastatin [Crestor] 40 MG tablet
40 mg PO DAILY@1600
tamsulosin 0.4 mg Capsule
0.4 mg PO BID
glipizide 5 mg Tablet Extended Release 24hr
5 mg PO BID
azelastine 137 mcg (0.1 %) Aerosol,[place]
1 spray INTRANASAL BIDPRN PRN (Reason: congestion)
Eliquis 2.5 mg Tablet
2.5 mg PO BID Qty: 60 0RF
psyllium Packet
1 packet PO QPMPRN PRN (Reason: constipation)
clopidogrel 75 mg Tablet
75 mg PO DAILY
lidocaine-prilocaine 2.5-2.5 % Cream
1 applic TOPICAL DIRECTED
Patient Comments:
01/05/2024, use when accessing port site.
cholecalciferol (vitamin D3) 50 mcg (2,000 unit) Tablet,Chewable
100 mcg PO NOON
Ultimate Mena Probiotic 30 billion cell Capsule,Delayed Release(Dr/Ec)
1 cap PO DAILY
Mucinex DM
1 tab PO BIDPRN PRN (Reason: congestion)
amiodarone [Pacerone] 200 mg tablet
200 mg PO DAILY
Changed
insulin glargine [Lantus Solostar U-100 Insulin] 100 unit/mL (3 mL) Insulin Pen
10 unit SC DAILY@1900 Qty: 0 0RF
Discontinued
furosemide 40 mg Tablet
40 mg PO TUTHSA@0800
furosemide 40 mg Tablet
80 mg PO SUMOWEFR@0800
metoprolol tartrate 25 mg tablet
12.5 mg PO BID
Discharge Orders:
Discharge Patient (As Directed); Ordered 01/08/24
Ordered By: Otis Gunderson
Discharge Date and Time
Discharge Date/Time: 01/08/24 16:19
Print Language: NAURUAN
[2024-01-08 15:15] VITALS: BP 98/56
[2024-01-08 15:39] VITALS: BP 139/57
== END 2024-01-08 16:19 | disposition home health service (06) | DRG 291 ==
LOC: 4 EAST ACU 17:14
PROVIDERS: ADMITTING PHYSICIAN Hospitalist; CONSULT PHYSICIAN Internal Medicine Cardiovascular Disease; EMERGENCY PHYSICIAN Student in an Organized Health Care Education/Training Program; FAMILY PHYSICIAN Family Medicine
DX: I13.0 Hypertensive heart and chronic kidney disease with heart failure and stage 1 through stage 4 chronic kidney disease, or unspecified chronic kidney disease (principal); I50.33 Acute on chronic diastolic (congestive) heart failure; C34.92 Malignant neoplasm of unspecified part of left bronchus or lung; N39.0 Urinary tract infection, site not specified; E78.00 Pure hypercholesterolemia, unspecified; I25.10 Atherosclerotic heart disease of native coronary artery without angina pectoris; I71.40 Abdominal aortic aneurysm, without rupture, unspecified; E11.51 Type 2 diabetes mellitus with diabetic peripheral angiopathy without gangrene; R09.02 Hypoxemia; N18.31 Chronic kidney disease, stage 3a; E11.65 Type 2 diabetes mellitus with hyperglycemia; I45.10 Unspecified right bundle-branch block; J43.9 Emphysema, unspecified; G47.33 Obstructive sleep apnea (adult) (pediatric); I48.0 Paroxysmal atrial fibrillation; B96.20 Unspecified Escherichia coli [E. coli] as the cause of diseases classified elsewhere; R06.89 Other abnormalities of breathing; N40.1 Benign prostatic hyperplasia with lower urinary tract symptoms; R33.8 Other retention of urine; Z95.1 Presence of aortocoronary bypass graft; I25.2 Old myocardial infarction; Z86.74 Personal history of sudden cardiac arrest; Z87.891 Personal history of nicotine dependence; Z79.01 Long term (current) use of anticoagulants; Z79.02 Long term (current) use of antithrombotics/antiplatelets; Z79.84 Long term (current) use of oral hypoglycemic drugs; Z79.4 Long term (current) use of insulin; Z88.2 Allergy status to sulfonamides; Z88.8 Allergy status to other drugs, medicaments and biological substances; Z88.1 Allergy status to other antibiotic agents; Z91.041 Radiographic dye allergy status; Z92.21 Personal history of antineoplastic chemotherapy; Z92.3 Personal history of irradiation
CPT/HCPCS: 71046; 80048; 80053; 81003; 81015; 82962; 83036; 83735; 83880; 84484; 85025; 85027; 87077; 87086; 87186; 93005; 96374; 97162; 97165; 99291

== ENCOUNTER 2024-03-09 21:43 | Inpatient (IN) | payer MEDICARE, OTHER, SELFPAY ==
[2024-03-09] VITALS (9 sets, daily range): BP systolic 112–174; BP diastolic 49–74; BMI 29.2; BMI 28.7
--- NOTE | 2024-03-09 15:05 | ED.GENMED ---
History of Present Illness
<Ronald Gallo PA-C - Last Filed: 03/09/24 20:04>
General
Chief Complaint: Weakness
Source: patient
Exam Limitations: none
Time Seen by Provider: 03/09/24 14:53
Travel History
Have you had any contact with someone who has COVID-19?: No
Do you have any symptoms of coronavirus? Fever > 100 degrees, chills, cough, shortness of breath, sore throat, loss of taste or smell, muscle aches, or headache?: No
History of Present Illness
History of Present Illness:
83-year-old male presents with generalized fatigue. He notes that everything hurts as well. He is currently undergoing chemotherapy for cancer. Received his third treatment 4 days ago. He was called and told by his oncologist that his hemoglobin
is low and that he should present here for evaluation. He denies any dark or tarry stools. He is anticoagulated. No chest pain. Does note fatigue and shortness of breath. No measurable fever. NO other complaints at this time.
Past History
<Ronald Gallo PA-C - Last Filed: 03/09/24 20:04>
Past History
ED Past Medical History: CAD, HTN, Hypercholesterolemia, Renal failure, Other (BPH, urinary retention), Other (Peripheral arterial disease) and Other (V tach/V-fib arrest, SD, CAD, CABG, PCI LM and LCx 06/2015, A-fib, PVD with multiple peripheral
interventions including bypass, AAA)
ED Past Surgical History: Cardiac (CABG x 26 Apr 2015, Bilateral carotid endarterectomies 2018, ), Cholecystectomy and Other (Vascular lower extremity bypass)
Social History
Tobacco: Former smoker
Alcohol: None
Drug: None
Personal:
Living: with family
Phy Exam
<MARY Bazzi Last Filed: 03/09/24 20:04>
Physical Exam
Physical Exam:
General: Slightly pale appearing male no acute respiratory distress
HEENT: Normocephalic atraumatic
Heart: Regular rate and rhythm no murmurs
Lungs: Clear no wheeze
Extremities: No cyanosis
Course
<Ronald Gallo PA-C - Last Filed: 03/09/24 20:04>
Orders/Labs/Results
Orders:
Orders
03/09/24 15:36
Type+Screen Urgent
Complete Blood Count/With Diff Urgent
Comprehensive Metabolic Panel Urgent
Manual Differential Urgent
03/09/24 17:35
CR Chest - 2 Views Urgent
Comment:
Reason For Exam: sob
03/09/24 17:37
COVID-19 Antigen Urgent
Source: Nasal Swab
03/09/24 19:02
Urinalysis Reflex To Culture Urgent
Date Specimen was Collected: 03/09/24
Time Specimen was Collected: 18:47
Urine Microscopic Reflex Cult Urgent
Blood Culture Q30M
RADHA Source: Blood/Venous
Specimen Description:
Blood Culture Q30M
RADHA Source: Blood/Venous
Specimen Description:
Urine Culture Urgent
RADHA Source: U
Specimen Description:
Date Specimen was Collected: 03/09/24
Time Specimen was Collected: 18:47
03/09/24 19:55
LevoFLOXacin 500 MG/100 ML [Levaquin] 500 mg in 100 ml IV NOW
Abnormal Lab Results
03/09/24 03/09/24
15:36 19:02
WBC 26.0 H 10^3/uL
(4.8-10.8)
RBC 2.73 L 10^6/uL
(4.70-6.10)
Hgb 8.1 L g/dL
(13.0-18.0)
Hct 24.0 L %
(39.0-52.0)
RDW 16.8 H %
(11.5-14.5)
Abs Neuts (Manual) 23.9 H 10^3/uL
(1.4-6.5)
Segmented Neutrophils 85 H %
(42-75)
Band Neutrophils 7 H %
(0-3)
Lymphocytes (Manual) 3 L %
(20-51)
Monocytes (Manual) 1 L %
(2-9)
Chloride 109 H mmol/L
(98-107)
BUN 33 H mg/dl
(9-20)
Creatinine 1.4 H mg/dL
(0.7-1.3)
Glucose 105 H mg/dl
(70-99)
Albumin 3.3 L g/dl
(3.5-5.0)
Urine Nitrite (Reflex) Positive A
(Negative)
Leukocyte Esterase Rfl 2+ A
(Negative)
Urine WBC (Reflex) 60-70 A /HPF
(0-5)
Urine Bacteria (Reflex) Many A
(Negative)
03/09/24 15:36
03/09/24 15:36
Vital Signs
Initial and Last Documented VS:
Initial Vital Signs
Temp Pulse Resp BP Pulse Ox
98.4 F 68 16 117/56 98
03/09/24 14:08 03/09/24 14:08 03/09/24 14:08 03/09/24 14:08 03/09/24 14:08
Last Documented Vital Signs
Temp Pulse Resp BP Pulse Ox
98.4 F 66 12 125/64 94
03/09/24 14:08 03/09/24 17:15 03/09/24 17:15 03/09/24 17:00 03/09/24 17:15
<Kai Rose MD - Last Filed: 03/09/24 18:34>
Orders/Labs/Results
Orders:
Orders
03/09/24 15:36
Type+Screen Urgent
Complete Blood Count/With Diff Urgent
Comprehensive Metabolic Panel Urgent
Manual Differential Urgent
03/09/24 17:35
CR Chest - 2 Views Urgent
Comment:
Reason For Exam: sob
03/09/24 17:37
COVID-19 Antigen Urgent
Source: Nasal Swab
03/09/24 19:02
Urinalysis Reflex To Culture Urgent
Date Specimen was Collected: 03/09/24
Time Specimen was Collected: 18:47
Urine Microscopic Reflex Cult Urgent
Blood Culture Q30M
RADHA Source: Blood/Venous
Specimen Description:
Blood Culture Q30M
RADHA Source: Blood/Venous
Specimen Description:
Urine Culture Urgent
RADHA Source: U
Specimen Description:
Date Specimen was Collected: 03/09/24
Time Specimen was Collected: 18:47
03/09/24 19:55
LevoFLOXacin 500 MG/100 ML [Levaquin] 500 mg in 100 ml IV NOW
Abnormal Lab Results
03/09/24 03/09/24
15:36 19:02
WBC 26.0 H 10^3/uL
(4.8-10.8)
RBC 2.73 L 10^6/uL
(4.70-6.10)
Hgb 8.1 L g/dL
(13.0-18.0)
Hct 24.0 L %
(39.0-52.0)
RDW 16.8 H %
(11.5-14.5)
Abs Neuts (Manual) 23.9 H 10^3/uL
(1.4-6.5)
Segmented Neutrophils 85 H %
(42-75)
Band Neutrophils 7 H %
(0-3)
Lymphocytes (Manual) 3 L %
(20-51)
Monocytes (Manual) 1 L %
(2-9)
Chloride 109 H mmol/L
(98-107)
BUN 33 H mg/dl
(9-20)
Creatinine 1.4 H mg/dL
(0.7-1.3)
Glucose 105 H mg/dl
(70-99)
Albumin 3.3 L g/dl
(3.5-5.0)
Urine Nitrite (Reflex) Positive A
(Negative)
Leukocyte Esterase Rfl 2+ A
(Negative)
Urine WBC (Reflex) 60-70 A /HPF
(0-5)
Urine Bacteria (Reflex) Many A
(Negative)
03/09/24 15:36
03/09/24 15:36
Vital Signs
Initial and Last Documented VS:
Initial Vital Signs
Temp Pulse Resp BP Pulse Ox
98.4 F 68 16 117/56 98
03/09/24 14:08 03/09/24 14:08 03/09/24 14:08 03/09/24 14:08 03/09/24 14:08
Last Documented Vital Signs
Temp Pulse Resp BP Pulse Ox
98.4 F 66 12 125/64 94
03/09/24 14:08 03/09/24 17:15 03/09/24 17:15 03/09/24 17:00 03/09/24 17:15
<Ronald Gallo PA-C - Last Filed: 03/09/24 20:04>
MDM/Problems Addressed
Differential Diagnosis Includes:
Weakness. Consider anemia versus electrolyte abnormality versus effect from chemotherapy. Patient has a port. Will add to have IV team access the port. Labs pending
<Ronald Gallo PA-C - Last Filed: 03/09/24 20:04>
*Critical Care Note
Total Time (30-74mins, 75-104mins- exclusive of procedures): Not Applicable
<Ronald Gallo PA-C - Last Filed: 03/09/24 20:04>
Update Note
Update Note:
Urinalysis positive for nitrates white cells and bacteria. Hemoglobin 8.1. He has been anemic. No significant rapid drop recently. I do not suspect hemoglobin is a sole source of his fatigue. Chest x-ray was unrevealing. Treat with fluids and
Levaquin and admit to hospital.
ED Attending Note
<Ronald Gallo PA-C - Last Filed: 03/09/24 20:04>
-
Portions of this chart may have been created with voice recognition software.� Occasional wrong word or��sound alike� substitutions may have occurred due to the inherent limitations of voice recognition software.
<Kai Rose MD - Last Filed: 03/09/24 18:34>
ED Attending Note
Patient seen and examined by attending physician: Yes
I performed the substantive portion of visit, reviewed & personally made and approve the management plan that is documented in note by myself or MARVA.: Yes
ED Attending Note:
83-year-old male complaining of general weakness shortness of breath joint pains. On chemo for lung CA. Last treatment was 5 days ago. He had a Neupogen shot at that time. Symptoms are moderate in nature. Patient is anticoagulated. Faithful
with meds.
On exam patient is nontoxic. Chronically ill-appearing. Currently on 2 L nasal cannula. Lung lungs with occasional rhonchi but no distress. Port upper chest wall. Heart regular rate and rhythm. Abdomen nontender.
Labs show significant leukocytosis. This may be all Neupogen related but would have to consider secondary infection. Also anemic at 8.1 although not significantly lower than normal. Not convinced this totally explains his symptoms. Given his
general weakness leukocytosis anemia patient will be admitted. Await urinalysis.
Discharge Plan
Departure
Patient Disposition: Admit
Date of Disposition: 03/09/24
Time of Disposition: 20:03
Admit to: Telemetry
Presentation/result/management discussed w/ accepting MD/DO: Hospitalist
Discharge Problem:
Acute UTI
Prescriptions:
No Action
rosuvastatin [Crestor] 40 MG tablet
40 mg PO DAILY@1600
tamsulosin 0.4 mg Capsule
0.4 mg PO BID
glipizide 5 mg Tablet Extended Release 24hr
5 mg PO BID
azelastine 137 mcg (0.1 %) Aerosol,[place]
1 spray INTRANASAL BIDPRN PRN (Reason: congestion)
Eliquis 2.5 mg Tablet
2.5 mg PO BID Qty: 60 0RF
psyllium Packet
1 packet PO DAILYPRN PRN (Reason: constipation)
clopidogrel 75 mg Tablet
75 mg PO DAILY
lidocaine-prilocaine 2.5-2.5 % Cream
1 applic TOPICAL DAILYPRN PRN (Reason: prior to port access)
Patient Comments:
01/05/2024, use when accessing port site.
Mucinex DM 30-600 mg Tablet Extended Release 12 Hr
1 tab PO [id number] PRN (Reason: congestion) Qty: 0
cholecalciferol (vitamin D3) 50 mcg (2,000 unit) Tablet,Chewable
100 mcg PO NOON
Ultimate Mena Probiotic 30 billion cell Capsule,Delayed Release(Dr/Ec)
1 cap PO DAILY
amiodarone [Pacerone] 200 mg tablet
200 mg PO DAILY@1600
ondansetron HCl 8 mg tablet
8 mg PO Q8HPRN PRN (Reason: nausea/vomiting)
prochlorperazine maleate 10 mg tablet
10 mg PO Q6HPRN PRN (Reason: nausea/vomiting)
torsemide 20 mg tablet
20 mg PO MOWEFR
insulin glargine [Lantus Solostar U-100 Insulin] 100 unit/mL (3 mL) insulin pen
10 unit SC QPM
Referrals:
Rodrigo Villa, DO [Family Provider] -
Interventions
Interventions:
*Risk Screen - Suicide Last Done: 03/09/24 15:52
*General Assessment Last Done: 03/09/24 15:52
*Neglect/Abuse Screening Last Done: 03/09/24 15:52
*ED COVID-19 Vaccine History Last Done: 03/09/24 14:08
ED- Cardiac Assessment Last Done: 03/09/24 15:52
ED- Neurological Assessment Last Done: 03/09/24 15:52
ED- Pulmonary Assessment Last Done: 03/09/24 15:52
Discharge Date and Time
Print Language: CZECH
[2024-03-09 16:10] LABS: Hemoglobin 8.1 g/dL (13.0-18.0); Mean Corp Hgb Conc. 33.8 g/dL (33.0-37.0); Mean Corpuscular Hgb 29.7 pg (27.0-31.0); Mean Corpuscular Volume 87.9 fL (80.0-94.0); Mean Platelet Volume 10.1 fL (7.4-10.4); Platelet Count 170 10^3/uL (130-400); Red Blood Cell Count 2.73 10^6/uL (4.70-6.10); Red Cell Dist. Width 16.8 % (11.5-14.5)
[2024-03-09 16:29] LABS: Absolute Neutrophils -Man Diff 23.9 10^3/uL (1.4-6.5); Band Neutrophils 7 % (0-3); Lymphocytes 3 % (20-51); Segmented Neutrophils 85 % (42-75)
[2024-03-09 16:30] LABS: Eosinophils 1 % (0-6); Hypochromasia 1+; Metamyelocytes 2 % (-); Monocytes 1 % (2-9); Myelocytes 1 % (-); Normal RBC Morphology No; Platelets Checked Yes; Total Cells Counted 100
[2024-03-09 16:53] LABS: ALT (SGPT) 16 U/L (0-50); AST (SGOT) 22 U/L (17-59); Albumin 3.3 g/dl (3.5-5.0); Alkaline Phosphatase 102 U/L (38-126); Blood Urea Nitrogen 33 mg/dl (9-20); Calcium 8.8 mg/dl (8.4-10.2); Carbon Dioxide 22 mmol/L (22-30); Chloride 109 mmol/L (98-107); Estimated Creatinine Clearance 43 ml/min; Glucose 105 mg/dl (70-99); Potassium 4.3 mmol/L (3.5-5.1); Sodium 139 mmol/L (135-145); Total Bilirubin 0.9 mg/dl (0.2-1.3); Total Protein 6.6 g/dl (6.3-8.2); eGFR 50.18
[2024-03-09 18:05] LABS: COVID-19 Antigen Negative (Negative)
[2024-03-09 19:21] LABS: Urine Albumin Trace (Neg - Trace); Urine Bilirubin Negative (Negative); Urine Character Slightly Cloudy (Clear); Urine Color Yellow; Urine Glucose Negative (Negative); Urine Ketone Negative (Negative); Urine Leukocyte 2+ (Negative); Urine Nitrite Positive (Negative); Urine Occult Blood Negative (Negative); Urine Urobilinogen Negative (Neg - 1+)
[2024-03-09 19:35] LABS: Urine White Cell 60-70 /HPF (0-5)
[2024-03-09 19:36] LABS: Urine Bacteria Many (Negative); Urine Red Blood Cell None Seen /HPF (0-2)
[2024-03-09] MEDS: LEVAQUIN 100 IV (20:22)
[2024-03-09] MEDS: NSS 1000 IV (20:22)
--- NOTE | 2024-03-09 20:25 | HPS.HSE ---
Addendum entered and electronically signed by Ellis Malcolm MD 03/09/24 21:52:
I saw and examined the patient.
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
Comment:
Patient is 83 years old with history of lung cancer currently receiving chemotherapy, congestive heart failure, atrial fibrillation, coronary artery disease status post CABG, COPD who came to the ER with muscle aches, joint pain, chills, weakness
associated with urinary frequency and burning and incontinence, last chemotherapy 4 days ago.
Patient been having chest tightness, but no shortness of breath.
Physical exam:
GENERAL : Patient is awake, alert, oriented x3, looks tired
HEENT: Nonicteric sclerae, PERRLA, EOMI. Oropharynx clear. Moist mucous membranes. Conjunctivae appear well perfused.
CHEST: Chest wall is nontender.
HEART: Regular rate and rhythm without murmurs.
LUNGS: Bilateral basal Rales
ABDOMEN: Soft, positive bowel sounds, nontender, no organomegaly.
RECTAL: Deferred.
SKIN: No rash, no excessive bruising, petechiae, or purpura.
NEUROLOGIC: Cranial nerves II-XII intact without motor/sensory deficit.
Assessment/plan.
Sepsis secondary to UTI.
Continue Zosyn based on most recent urine culture
Lung cancer currently on chemotherapy
Follow-up with oncologist
Chronic diastolic CHF
Avoid additional IV fluid
Original Note:
Family Physician
-
Family Physician: Rodrigo Villa
Chief Complaint
-
Chills, weakness, joint aches, chest pressure, bilateral groin pain
History of Present Illness
83-year-old male complaining of chills, weakness, joint aches, chest pressure, bilateral groin pain along with urinary frequency burning and incontinence developing on Tuesday. He had chemotherapy infusion 4 days ago on 03/05/2024. He also at that
time received an injection to increase his WBC and RBC he is unsure of the names. 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 He began
chemotherapy in December along with Keytruda. Keytruda was eventually stopped due to development of heart failure. He had second chemo on 02/26 and third round on 03/05
He has past medical history lung CA on current chemo, squamous cell CA history of chemoradiation CHF, A-fib, RBBB CAD/status post CABG KINCAID�LAD 05/15/2015, LM and LCx 07/15/2015, VT/VF arrest, COPD mild obstruction on last PFT 09/14/2021 PVD status
post vein stripping, [place] bypass 2019, bilateral CEA 2018, AAA,, HTN, HLD, KIM, CKD, DM2, profound bradycardia with beta-blockers. Last admission was 01/04 - 01/08/2024 for CHF exacerbation with leukocytosis had negative UTI at that time. Torsemide
20 mg was added to his drug regimen daily in place of furosemide
Medical History
Past Medical History
Past Medical History: Reports Other (Hypertension, hyperlipidemia, VT/VF cardiac arrest back in 2014, paroxysmal A-fib, coronary artery disease with CABG and PCI and stent, COPD, diabetes mellitus type 2, valvular heart disease, CKD stage III, BPH,
underlying right bundle branch block, obstructive sleep apnea, lung cancer, AAA, periphe)
Past Surgical History: Reports Other (Cholecystectomy, CABG, PCI with stents, vein stripping, bilateral CEA, femoral bypass)
Social History
Tobacco: Former Smoker
Alcohol: None
Drug: None
Personal:
Living: With Family
Employment: Retired
Family History
Family History: CAD
Allergies / Home Medications
Allergies reflects when Allergies were last updated in [facility].
Home Medications with original date entered in [facility]
Allergy/Medication List:
Allergies
Allergy/AdvReac Type Severity Reaction Status Date / Time
ZACHARY Inhibitors Allergy Shortness Verified 03/09/24 14:10
of
Breath-possible
angioedema-pharm
to review
Cephalosporins Allergy Eosinophili Verified 03/09/24 14:10
a
Iodinated Contrast Media Allergy affected Verified 03/09/24 14:10
[Iodinated Contrast Media - kidneys
Oral and]
sulfamethoxazole Allergy Rash Verified 03/09/24 14:10
[From Bactrim]
trimethoprim [From Bactrim] Allergy Rash Verified 03/09/24 14:10
Home Medications
rosuvastatin 40 mg tablet (Crestor) 40 mg PO DAILY@1600 High cholesterol 01/22/19
tamsulosin 0.4 mg capsule 0.4 mg PO BID Urinary issue 07/15/22
glipizide 5 mg tablet, extended release 24 hr 5 mg PO BID Diabetes 11/17/22
azelastine 137 mcg (0.1 %) nasal spray aerosol 1 spray intranasal BIDPRN PRN congestion 09/14/23
apixaban 2.5 mg tablet (Eliquis) 2.5 mg PO BID #60 tabs 12/03/23
Lactobacillus-Bifidobacterium 30 billion cell capsule,delayed release (Ultimate Mena Probiotic) 1 cap PO DAILY Gastrointestinal Issue 01/05/24
amiodarone 200 mg tablet (Pacerone) 200 mg PO DAILY@1600 Arrhythmia 01/05/24
cholecalciferol (vitamin D3) 50 mcg (2,000 unit) chewable tablet 100 mcg PO NOON Supplement 01/05/24
clopidogrel 75 mg tablet 75 mg PO DAILY Blood Clot Prevention/Tx 01/05/24
dextromethorphan-guaifenesin 30 mg-600 mg tablet extended epnohcf06 hr (Mucinex DM) 1 tab PO [id number] PRN congestion ##0 01/05/24
lidocaine-prilocaine 2.5 %-2.5 % topical cream 1 applic topical DAILYPRN PRN prior to port access 01/05/24
psyllium 1 packet PO DAILYPRN PRN constipation 01/05/24
insulin glargine 100 unit/mL (3 mL) subcutaneous pen (Lantus Solostar U-100 Insulin) 10 unit SC QPM Diabetes 03/09/24
ondansetron HCl 8 mg tablet 8 mg PO Q8HPRN PRN nausea/vomiting 03/09/24
prochlorperazine maleate 10 mg tablet 10 mg PO Q6HPRN PRN nausea/vomiting 03/09/24
torsemide 20 mg tablet 20 mg PO MOWEFR 03/09/24
Review of Systems
-
History Source: Patient
A 12 point ROS was completed and negative except as noted: Yes
Constitutional: Reports Fatigue, Chills and Other (Myalgias); Denies Fever
EENT: Denies Sore Throat or Runny Nose
Respiratory: Denies Cough or Trouble Breathing
Cardiac: Reports Chest Pain; Denies Diaphoresis, Palpitations or Syncope
Abdomen/GI: Denies Abdominal Pain, Nausea, Vomiting, Diarrhea, Constipated, Bloody Stools or Black Stools
: Reports Dysuria, Frequency, Incontinence and Urgency; Denies Flank Pain
Musculoskeletal: Denies Joint Pain or Edema
Skin: Denies Itching or Rash
Neurological: Reports Weakness; Denies Dizzy or Headache
Hematologic/Lymphatic: Reports No Symptoms
Psych: Reports No Symptoms
Physical Exam
Vital Signs
Vital Signs
Temp Pulse Resp BP Pulse Ox
98.4 F 66 12 125/64 94
03/09/24 14:08 03/09/24 17:15 03/09/24 17:15 03/09/24 17:00 03/09/24 17:15
Physical Exam
General: Comfortable, Conversant and Chills; No Fever
HEENT: NormoCephalic, Anicteric, Moist mucous membranes, PERRLA, [place] Conjunctivae and No Ptosis
Respiratory: Clear; No Wheezes, Rales or Rhonchi
Cardiac: S1/S2 and Regular Rhythm; No Murmur, Rub, Gallop or Peripheral Edema
Breast: Deferred by me
GI: Soft, Non Tender, Non Distended, Normal Bowel Sounds, No Hepatosplenomegaly and Other (Soft nontender ventral hernia present, bilateral inguinal lymphadenopathy)
Rectal: Deferred by Provider
Genito-urinary: Deferred by me
Musculoskeletal: No Clubbing, No Cyanosis and No Edema
Neuro: AO x 3, No Motor Deficits, Nonfocal/grossly intact, Cranial Nerves Intact and No Sensory Deficits; No Slurred Speech, Facial Droop or Tremors
Hematologic/Lymphatic: Lymphadenopathy (bilateral inguinal lymphadenopathy)
Psych: Calm
Laboratory Results
-
03/09/24 15:36
03/09/24 15:36
Laboratory Results
Total Bilirubin 0.9 mg/dl (0.2-1.3) 03/09/24 15:36
AST 22 U/L (17-59) 03/09/24 15:36
ALT 16 U/L (0-50) 03/09/24 15:36
Alkaline Phosphatase 102 U/L (38-126) 03/09/24 15:36
Impression/Plan
-
Impression/plan:
Admit to telemetry
#Sepsis 2/2 to UTI symptomatic
Hx prior GNR in urine December 2020/history E. coli UTI december resistant to levaquin
WBC 26 7% bands, Afebrile, normotensive, HR 60s
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
UA many bacteria, WBC 60-70, leukocyte esterase +2
-IV Levaquin given in ER
-Will continue IV Zosyn
-Follow CBC, BMP
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
-radiation on 11/2022 and with progression of disease confirmed by biopsy started on carbo/Taxol/Keytruda in December
Port left upper chest wall
-Chemo on 03/05/2024 Taxol, carboplatin, prior chemo 02/27/2024
-Recent injection of colony-stimulating factor and epoetin on 03/05/2024
#Anemia secondary to chemotherapy
Hgb 8.1 appears near baseline 8�9
#Chronic diastolic congestive heart failure
I/O, daily weights
-Hold torsemide 20 mg Tuesday
#Chronic kidney disease stage III B
Creat 1.4 baseline 1.7
-Follow BMP
#Diabetes mellitus type 2
BS 105
-Continue glipizide 5 mg twice daily
Will hold Lantus 10 units qpm due to blood sugar of 105
#RBBB
#Sinus bradycardia
#Hx profound bradycardia on metoprolol which was DC'd in December
#CAD s/p CABG KINCAID-LAD 04/2015. PCI LM and LCX 06/2015
# 09/2022 post cath with patent KINCAID to LAD and stent and no new obstructive CAD.
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
-Continue Eliquis 2.5 mg twice daily, Plavix 75 mg daily
#Paroxysmal AFib
-Continue amiodarone 20 mg daily, Plavix 2.5 mg twice daily
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
#Former smoker
#HTN benign
-BP 125/64
Continue amiodarone
#Hypercholesterolemia
-Continue Crestor
#BPH
-Continue Flomax 0.4 mg twice daily
Other PMH
Abdominal ventral hernia
PVD s/p vein stripping, Fem bypass 2019
b/l CEA 2018
AAA
DVT prophylaxis
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
Full code
--- NOTE | 2024-03-09 23:30 | PTCARENOTE ---
Received patient from ED. Patient AAOx3, he stood and pivoted to the bedside. Lungs decreased, POX 95% on 2Liters. Heart rate regular, trace low edema, positive pulses. VSS. Normal sinus on the monitor. Patient was noted to have a scabbed laceration
on the back of his head from a recent fall. He also has a partial thickness sore on his left buttock. He stated it was part of a rash. Patient is weak and verbalized an understanding to ring for all transfers. Urinal provided as requested. Bed alarm
placed for safety.
[2024-03-09 23:38] LABS: Glucose - Point of Care 136 mg/dl (70-99)
[2024-03-10] VITALS (8 sets, daily range): BP systolic 96–149; BP diastolic 43–57; PULSE 59; O2SAT 96; BMI 28.7; BMI 28.5
[2024-03-10] MEDS: ZOSYN 50 IV ×5 (00:21→23:10)
[2024-03-10] MEDS: FLUSH (NSS) 2 FLUSH IV ×5 (00:21→23:12)
[2024-03-10 04:12] LABS: % Basophils 0.1 % (0-2); % Immature Granulocytes 8.7 % (0-0.5); % Lymphocytes 3.8 % (20.5-51.1); % Monocytes 1.7 % (1.7-9.3); % Neutrophils 81.7 % (42.2-75.2); Absolute Eosinophils 0.8 10^3/uL (0-0.7); Absolute Immature Granulocytes 1.7 10^3/uL (0-0.05); Absolute Lymphocytes 0.8 10^3/uL (1.2-3.4); Absolute Monocytes 0.3 10^3/uL (0.1-0.6); Absolute Neutrophils 15.9 10^3/uL (1.4-6.5); Hematocrit 24.4 % (39.0-52.0); Hemoglobin 7.9 g/dL (13.0-18.0); Mean Corp Hgb Conc. 32.4 g/dL (33.0-37.0); Mean Corpuscular Volume 89.7 fL (80.0-94.0); Mean Platelet Volume 10.1 fL (7.4-10.4); Nucleated Red Blood Cells % 0 % (-); Platelet Count 142 10^3/uL (130-400); Red Blood Cell Count 2.72 10^6/uL (4.70-6.10); Red Cell Dist. Width 16.8 % (11.5-14.5); White Blood Cell Count 19.5 10^3/uL (4.8-10.8)
[2024-03-10 04:35] LABS: ALT (SGPT) 14 U/L (0-50); AST (SGOT) 20 U/L (17-59); Alkaline Phosphatase 94 U/L (38-126); Blood Urea Nitrogen 30 mg/dl (9-20); Calcium 8.4 mg/dl (8.4-10.2); Carbon Dioxide 22 mmol/L (22-30); Chloride 111 mmol/L (98-107); Estimated Creatinine Clearance 43 ml/min; Glucose 152 mg/dl (70-99); Potassium 4.3 mmol/L (3.5-5.1); Sodium 141 mmol/L (135-145); Total Bilirubin 0.7 mg/dl (0.2-1.3); Total Protein 6.2 g/dl (6.3-8.2); eGFR 50.18
[2024-03-10 07:20] LABS: Glucose - Point of Care 164 mg/dl (70-99)
[2024-03-10] MEDS: FLOMAX 0.400000000000000022 MG PO ×2 (08:26→19:41)
[2024-03-10] MEDS: PLAVIX 75 MG PO (08:26)
[2024-03-10] MEDS: VISBIOME 1 CAP PO (08:26)
[2024-03-10] MEDS: ELIQUIS 2.5 MG PO ×2 (08:26→19:41)
[2024-03-10] MEDS: GLUCOTROL XL (EXTENDED RELEASE) 5 MG PO ×2 (08:27→17:04)
[2024-03-10] MEDS: NOVOLOG FLEXPEN-LOW RESISTANCE 1 UNITS SC (09:02)
[2024-03-10 09:18] LABS: Glycohemoglobin (HgbA1c) 7.1 % (4.0-5.6)
--- NOTE | 2024-03-10 10:01 | W.PN.HOSP.TC ---
Today's Communication/Plan
-
f/w cultures
c/w Zosyn
Bladder scan to detect retention
Renal US
Assessment / Plan
Assessment / Plan
Physical Exam
General: Comfortable, Conversant and Chills; No Fever
HEENT: Normocephalic, Anicteric, Moist mucous membranes, PERRLA, [place] Conjunctivae and No Ptosis
Respiratory: Clear; No Wheezes, Rales or Rhonchi
Cardiac: S1/S2 and Regular Rhythm; No Murmur, Rub, Gallop or Peripheral Edema
GI: Soft, Non Tender, Non Distended, Normal Bowel Sounds, No Hepatosplenomegaly and Other (Soft nontender ventral hernia present, bilateral inguinal lymphadenopathy)
Rectal: No rectal bleeding
Genito-urinary: No [place], no hematuria, no flank pain.
Musculoskeletal: No Clubbing, No Cyanosis and No Edema
Neuro: AO x 3, No Motor Deficits, Nonfocal/grossly intact, Cranial Nerves Intact and No Sensory Deficits; No Slurred Speech, Facial Droop or Tremors
Hematologic/Lymphatic: Lymphadenopathy (bilateral inguinal lymphadenopathy)
Psych: Calm
#Sepsis 2/2 to UTI symptomatic
Hx prior GNR in urine December 2020/history E. coli UTI December resistant to Levaquin
WBC 26 7% bands, Afebrile, normotensive, HR 60s
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
UA many bacteria, WBC 60-70, leukocyte esterase +2
-IV Levaquin given in ER
-Will continue IV Zosyn
- WBC is coming down, no fevers.
- Order renal US & bladder scan protocol . He denies flank pain or previous urinary retention.
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 Shin.
-radiation on 11/2022 and with progression of disease confirmed by biopsy started on carbo/Taxol/Keytruda in December
Port left upper chest wall
-Chemo on 03/05/2024 Taxol, carboplatin, prior chemo 02/27/2024
-Recent injection of colony-stimulating factor and epoetin on 03/05/2024.
-Updated on-call oncologist per pt's request.
#Anemia secondary to chemotherapy
Hgb 8.1 appears near baseline 8�9
#Chronic diastolic congestive heart failure
I/O, daily weights
-Hold torsemide 20 mg Tuesday
#Chronic kidney disease stage III B
Creat 1.4 baseline 1.7
-Follow BMP, avoid nephrotoxic.
#Diabetes mellitus type 2
AM BS 164
-Continue glipizide 5 mg twice daily
c/w ISS
#RBBB
#Sinus bradycardia
#Hx profound bradycardia on metoprolol which was DC'd in December
#CAD s/p CABG KINCAID-LAD 04/2015. PCI LM and LCX 06/2015
# 09/2022 post cath with patent KINCAID to LAD and stent and no new obstructive CAD.
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
-Continue Eliquis 2.5 mg twice daily, Plavix 75 mg daily
#Paroxysmal AFib
-Continue amiodarone 20 mg daily, Plavix 2.5 mg twice daily
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
#Former smoker
#HTN benign
-BP 125/64
Continue amiodarone
#Hypercholesterolemia
-Continue Crestor
#BPH
-Continue Flomax 0.4 mg twice daily
Total time spent to see the patient, examine the patient on the floor, review data and lab results, discuss treatment plan with patient, nursing staff around 55 minutes
Anticipated Discharge: > 48 hours
Subjective/Interval History
-
Date of Service: March 10, 2024
No chest pain
No fevers
No abd pain
He feels less weakness
Objective Data
-
Labs:
Laboratory Results
03/10/24
03:59
WBC 19.5 H
Hgb 7.9 L
Hct 24.4 L
Plt Count 142
Sodium 141
Potassium 4.3
Chloride 111 H
Carbon Dioxide 22
BUN 30 H
Creatinine 1.4 H
Glucose 152 H
Calcium 8.4
Total Bilirubin 0.7
AST 20
ALT 14
Alkaline Phosphatase 94
Vital Signs:
Vital Signs
Temp Pulse Resp BP Pulse Ox
97.9 F 62 14 133/55 92
03/10/24 07:15 03/10/24 07:15 03/10/24 07:15 03/10/24 07:15 03/10/24 08:30
I&O
03/09/24 03/10/24 03/11/24
06:59 06:59 06:59
Intake Total 520 / 520
Output Total 200 / 200
Balance 320 / 320
[2024-03-10 11:14] LABS: Glucose - Point of Care 220 mg/dl (70-99)
[2024-03-10] MEDS: NOVOLOG FLEXPEN-LOW RESISTANCE 2 UNITS SC (11:27)
[2024-03-10] MEDS: VITAMIN D3 (cholecalciferol) 100 MCG PO (11:29)
--- NOTE | 2024-03-10 11:49 | CM ---
Addendum entered by Corinne Asher RN 03/10/24 12:05:
Magaly's fax: ([phone]).
Original Note:
Reviewed the chart notes and spoke with the patient at the bedside. The patient resides with his spouse in a one story home with two steps to enter via front door. The patient has in home a shower chair and shower grab bar. The patient is current
with [facility]. The patient reports no SNF in past. The patient confirmed his pharmacy of choice is the [facility]. CM continues to be available to patient/family and is monitoring medical plan for needs at discharge.
Plan: Discharge to home with resumption of [facility] services. Referral sent via [facility].
[2024-03-10] MEDS: FLUSH (NSS) 1 FLUSH IV (13:18)
--- NOTE | 2024-03-10 15:27 | PTCARENOTE ---
Pt scraped tip of penis when using the urinal. Now occasionally blood drips. Pt assessed and cleaned up. Will cont to monitor.
[2024-03-10] MEDS: PACERONE 200 MG PO (17:04)
[2024-03-10] MEDS: CRESTOR 40 MG PO (17:12)
[2024-03-10] MEDS: LANTUS 0.100000000000000006 UNITS SC (17:13)
[2024-03-10 17:16] LABS: Glucose - Point of Care 129 mg/dl (70-99)
[2024-03-10] MEDS: NOVOLOG FLEXPEN-LOW RESISTANCE SC (17:18)
[2024-03-10 21:44] LABS: Glucose - Point of Care 171 mg/dl (70-99)
[2024-03-11 03:39] VITALS: BP 134/52
[2024-03-11 05:27] LABS: Hematocrit 25.4 % (39.0-52.0); Hemoglobin 7.7 g/dL (13.0-18.0); Mean Corp Hgb Conc. 30.3 g/dL (33.0-37.0); Mean Corpuscular Hgb 28.3 pg (27.0-31.0); Mean Corpuscular Volume 93.4 fL (80.0-94.0); Mean Platelet Volume 10.4 fL (7.4-10.4); Platelet Count 141 10^3/uL (130-400); Red Blood Cell Count 2.72 10^6/uL (4.70-6.10); Red Cell Dist. Width 16.9 % (11.5-14.5)
[2024-03-11] MEDS: ZOSYN 50 IV ×3 (05:54→17:33)
[2024-03-11] MEDS: FLUSH (NSS) 2 FLUSH IV ×2 (05:54→11:36)
[2024-03-11 06:00] VITALS: BMI 28.5
[2024-03-11 06:25] LABS: ALT (SGPT) 10 U/L (0-50); AST (SGOT) 17 U/L (17-59); Alkaline Phosphatase 90 U/L (38-126); Blood Urea Nitrogen 25 mg/dl (9-20); Calcium 8.7 mg/dl (8.4-10.2); Carbon Dioxide 20 mmol/L (22-30); Chloride 112 mmol/L (98-107); Estimated Creatinine Clearance 43 ml/min; Glucose 92 mg/dl (70-99); Sodium 141 mmol/L (135-145); Total Bilirubin 0.5 mg/dl (0.2-1.3); Total Protein 6.1 g/dl (6.3-8.2); eGFR 50.18
[2024-03-11 07:05] VITALS: BP 122/55
[2024-03-11 07:18] LABS: Glucose - Point of Care 96 mg/dl (70-99)
[2024-03-11] MEDS: NOVOLOG FLEXPEN-LOW RESISTANCE SC ×2 (07:47→17:28)
[2024-03-11 08:00] VITALS: BMI 28.5
[2024-03-11] MEDS: GLUCOTROL XL (EXTENDED RELEASE) 5 MG PO ×2 (08:18→17:33)
[2024-03-11] MEDS: FLOMAX 0.400000000000000022 MG PO ×2 (08:18→22:07)
[2024-03-11] MEDS: VISBIOME 1 CAP PO (08:18)
[2024-03-11] MEDS: PLAVIX 75 MG PO (08:18)
[2024-03-11] MEDS: ELIQUIS 2.5 MG PO ×2 (08:18→22:07)
[2024-03-11 08:58] LABS: Absolute Neutrophils -Man Diff 7.8 10^3/uL (1.4-6.5); Band Neutrophils 2 % (0-3); Eosinophils 8 % (0-6); Lymphocytes 11 % (20-51); Monocytes 3 % (2-9); Segmented Neutrophils 76 % (42-75)
[2024-03-11 08:59] LABS: Anisocytosis 1+; Hypochromasia 1+; Normal RBC Morphology No; Platelets Checked Yes; Polychromasia 1+; Total Cells Counted 100
[2024-03-11 11:09] LABS: Glucose - Point of Care 265 mg/dl (70-99)
[2024-03-11 11:10] VITALS: BP 101/46
--- NOTE | 2024-03-11 11:12 | W.PN.HOSP.TC ---
Today's Communication/Plan
-
.
Assessment / Plan
Assessment / Plan
Physical Exam
General: Comfortable, Conversant and Chills; No Fever
HEENT: Normocephalic, Anicteric, Moist mucous membranes, PERRLA, [place] Conjunctivae and No Ptosis
Respiratory: Clear; No Wheezes, Rales or Rhonchi
Cardiac: S1/S2 and Regular Rhythm; No Murmur, Rub, Gallop or Peripheral Edema
GI: Soft, Non Tender, Non Distended, Normal Bowel Sounds, No Hepatosplenomegaly and Other (Soft nontender ventral hernia present, bilateral inguinal lymphadenopathy)
Rectal: No rectal bleeding
Genito-urinary: No Sloan, no hematuria, no flank pain.
Musculoskeletal: No Clubbing, No Cyanosis and No Edema
Neuro: AO x 3, No Motor Deficits, Nonfocal/grossly intact, Cranial Nerves Intact and No Sensory Deficits; No Slurred Speech, Facial Droop or Tremors
Hematologic/Lymphatic: Lymphadenopathy (bilateral inguinal lymphadenopathy)
Psych: Calm
#Sepsis 2/2 toE Coli UTI symptomatic
Hx prior GNR in urine December 2020/history E. coli UTI December resistant to Levaquin
-Urine culture showed E. coli resistant to quinolones
- Stop IV Zosyn, c/w oral Augmentin
- WBC is coming down, no fevers.
- Ordered renal US : No hydronephrosis.
-Blood culture no growth.
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 Shin.
-radiation on 11/2022 and with progression of disease confirmed by biopsy started on carbo/Taxol/Keytruda in December
Port left upper chest wall
-Chemo on 03/05/2024 Taxol, carboplatin, prior chemo 02/27/2024
-Recent injection of colony-stimulating factor and epoetin on 03/05/2024.
-Updated on-call oncologist per pt's request.
#Anemia secondary to chemotherapy
Hgb 8.1 appears near baseline 8�9
# Mild loose stools, suspect secondary to chemotherapy.
Seems to resolve
#Chronic diastolic congestive heart failure
I/O, daily weights
-Hold torsemide 20 mg Tuesday
#Chronic kidney disease stage III B
Creat 1.4 baseline 1.7
-Follow BMP, avoid nephrotoxic.
#Diabetes mellitus type 2
AM BS 96
-Continue glipizide 5 mg twice daily
c/w ISS
#RBBB
#Sinus bradycardia
#Hx profound bradycardia on metoprolol which was DC'd in December
#CAD s/p CABG KINCAID-LAD 04/2015. PCI LM and LCX 06/2015
# 09/2022 post cath with patent KINCAID to LAD and stent and no new obstructive CAD.
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
-Continue Eliquis 2.5 mg twice daily, Plavix 75 mg daily
#Paroxysmal AFib
-Continue amiodarone 20 mg daily, Plavix 2.5 mg twice daily
-BP AM 122/55
Continue amiodarone.
Can resume torsemide for fluid retention
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
#Former smoker
#Hypercholesterolemia
-Continue Crestor
#BPH
-Continue Flomax 0.4 mg twice daily
Total time spent to see the patient, examine the patient on the floor, review data and lab results, discuss treatment plan with patient, nursing staff around 55 minutes
Anticipated Discharge: Within 24 hours
Subjective/Interval History
-
Date of Service: March 11, 2024
feeling better
no sob
no cough
no chest pain
Objective Data
-
Labs:
Laboratory Results
03/11/24
05:11
WBC 10.0
Hgb 7.7 L
Hct 25.4 L
Plt Count 141
Sodium 141
Potassium 4.0
Chloride 112 H
Carbon Dioxide 20 L
BUN 25 H
Creatinine 1.4 H
Glucose 92
Calcium 8.7
Total Bilirubin 0.5
AST 17
ALT 10
Alkaline Phosphatase 90
Vital Signs:
Vital Signs
Temp Pulse Resp BP Pulse Ox
97.4 F 57 14 122/55 95
03/11/24 07:05 03/11/24 07:05 03/11/24 07:05 03/11/24 07:05 03/11/24 08:00
I&O
03/10/24 03/11/24 03/12/24
06:59 06:59 06:59
Intake Total 520 / 520 1650 / 1650
Output Total 200 / 200
Balance 320 / 320 1650 / 1650
[2024-03-11] MEDS: VITAMIN D3 (cholecalciferol) 100 MCG PO (11:36)
[2024-03-11] MEDS: NOVOLOG FLEXPEN-LOW RESISTANCE 3 UNITS SC (11:37)
[2024-03-11 15:10] VITALS: BP 114/48
[2024-03-11] MEDS: PACERONE 200 MG PO (15:58)
[2024-03-11] MEDS: CRESTOR 40 MG PO (16:00)
[2024-03-11 17:07] LABS: Glucose - Point of Care 112 mg/dl (70-99)
[2024-03-11] MEDS: LANTUS 0.100000000000000006 UNITS SC (17:33)
[2024-03-11 19:39] VITALS: BP 116/51
[2024-03-11 21:45] LABS: Glucose - Point of Care 109 mg/dl (70-99)
[2024-03-11 23:08] VITALS: BP 107/50
[2024-03-12] MEDS: ZOSYN 50 IV ×2 (00:34→06:27)
[2024-03-12 03:37] VITALS: BP 102/45
[2024-03-12 06:00] VITALS: BMI 28.7
[2024-03-12 07:15] VITALS: BP 141/59
[2024-03-12 07:43] LABS: Glucose - Point of Care 72 mg/dl (70-99)
[2024-03-12 07:50] LABS: % Basophils 1.3 % (0-2); % Eosinophils 22.3 % (0-6); % Immature Granulocytes 0.4 % (0-0.5); % Lymphocytes 19.2 % (20.5-51.1); % Monocytes 8.1 % (1.7-9.3); % Neutrophils 48.7 % (42.2-75.2); Absolute Basophils 0.1 10^3/uL (0-0.2); Absolute Eosinophils 1.2 10^3/uL (0-0.7); Absolute Lymphocytes 1.1 10^3/uL (1.2-3.4); Absolute Monocytes 0.4 10^3/uL (0.1-0.6); Absolute Neutrophils 2.7 10^3/uL (1.4-6.5); Hematocrit 24.1 % (39.0-52.0); Hemoglobin 7.6 g/dL (13.0-18.0); Mean Corp Hgb Conc. 31.5 g/dL (33.0-37.0); Mean Corpuscular Hgb 28.7 pg (27.0-31.0); Mean Corpuscular Volume 90.9 fL (80.0-94.0); Mean Platelet Volume 10.3 fL (7.4-10.4); Nucleated Red Blood Cells % 0 % (-); Platelet Count 128 10^3/uL (130-400); Red Blood Cell Count 2.65 10^6/uL (4.70-6.10); Red Cell Dist. Width 16.7 % (11.5-14.5); White Blood Cell Count 5.5 10^3/uL (4.8-10.8)
[2024-03-12] MEDS: NOVOLOG FLEXPEN-LOW RESISTANCE SC (08:24)
[2024-03-12 08:39] LABS: ALT (SGPT) < 10 U/L (0-50); AST (SGOT) 14 U/L (17-59); Albumin 2.9 g/dl (3.5-5.0); Alkaline Phosphatase 82 U/L (38-126); Blood Urea Nitrogen 21 mg/dl (9-20); Calcium 8.8 mg/dl (8.4-10.2); Carbon Dioxide 23 mmol/L (22-30); Chloride 110 mmol/L (98-107); Estimated Creatinine Clearance 43 ml/min; Glucose 69 mg/dl (70-99); Potassium 3.8 mmol/L (3.5-5.1); Sodium 140 mmol/L (135-145); Total Bilirubin 0.4 mg/dl (0.2-1.3); eGFR 50.18
[2024-03-12] MEDS: PLAVIX 75 MG PO (09:17)
[2024-03-12] MEDS: GLUCOTROL XL (EXTENDED RELEASE) 5 MG PO (09:17)
[2024-03-12] MEDS: ELIQUIS 2.5 MG PO (09:17)
[2024-03-12] MEDS: VISBIOME 1 CAP PO (09:17)
[2024-03-12] MEDS: FLOMAX 0.400000000000000022 MG PO (09:17)
[2024-03-12] MEDS: AUGMENTIN 500 MG/125 MG 1 TABLET PO (09:17)
--- NOTE | 2024-03-12 11:16 | W.PN.HOSP.TC ---
Addendum entered and electronically signed by Boy Burch MD 03/12/24 13:42:
Hemoglobin improved to 7.8. Will discharge patient home
Time of discharge 38 minutes
Original Note:
Today's Communication/Plan
-
Monitor vital signs and see plan
Repeat hemoglobin later today and if stable then likely discharge
Monitor hemoglobin
Monitor creatinine
Assessment / Plan
Assessment / Plan
Physical Exam
General: Comfortable, Conversant and Chills; No Fever
HEENT: Normocephalic, Anicteric, Moist mucous membranes
Respiratory: Clear; No Wheezes, Rales or Rhonchi
Cardiac: S1/S2 and Regular Rhythm
GI: Soft, Non Tender, Non Distended, Normal Bowel Sounds
Rectal: No rectal bleeding
Genito-urinary: No Sloan, no hematuria, no flank pain.
Musculoskeletal: No Clubbing, No Cyanosis and No Edema
Neuro: AO x 3, No Motor Deficits, Nonfocal/grossly intact
Psych: Calm
#Sepsis 2/2 toE Coli UTI symptomatic
Hx prior GNR in urine December 2020/history E. coli UTI December resistant to Levaquin
-Urine culture showed E. coli resistant to quinolones
- Stop IV Zosyn, c/w oral Augmentin
- WBC is coming down, no fevers.
- Ordered renal US : No hydronephrosis.
-Blood culture no growth.
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 Shin.
-radiation on 11/2022 and with progression of disease confirmed by biopsy started on carbo/Taxol/Keytruda in December
Port left upper chest wall
-Chemo on 03/05/2024 Taxol, carboplatin, prior chemo 02/27/2024
-Recent injection of colony-stimulating factor and epoetin on 03/05/2024.
-Updated on-call oncologist per pt's request.
#Anemia secondary to chemotherapy and some heme dilution
hgb 7.6 today; repeat and if same or better then dc today
# Mild loose stools, suspect secondary to chemotherapy.
Seems to resolve
#Chronic diastolic congestive heart failure
I/O, daily weights
-restart torsemide 20 mg Tuesday
#Chronic kidney disease stage III B
Creat 1.4 baseline 1.7
-Follow BMP, avoid nephrotoxic.
#Diabetes mellitus type 2
AM BS 96
-Continue glipizide 5 mg twice daily
c/w ISS
#RBBB
#Sinus bradycardia
#Hx profound bradycardia on metoprolol which was DC'd in December
#CAD s/p CABG KINCAID-LAD 04/2015. PCI LM and LCX 06/2015
# 09/2022 post cath with patent KINCAID to LAD and stent and no new obstructive CAD.
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
-Continue Eliquis 2.5 mg twice daily, Plavix 75 mg daily
#Paroxysmal AFib
-Continue amiodarone 20 mg daily, Plavix 2.5 mg twice daily
-BP AM 122/55
Continue amiodarone.
Can resume torsemide for fluid retention
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
#Former smoker
#Hypercholesterolemia
-Continue Crestor
#BPH
-Continue Flomax 0.4 mg twice daily
DVTppx
eliquis
Full code
Anticipated Discharge: Today
Subjective/Interval History
-
Date of Service: March 12, 2024
Denies abdominal pain
Objective Data
-
Labs:
Laboratory Results
03/12/24 03/12/24
07:19 11:00
WBC 5.5
Hgb 7.6 L Pending
Hct 24.1 L Pending
Plt Count 128 L
Sodium 140
Potassium 3.8
Chloride 110 H
Carbon Dioxide 23
BUN 21 H
Creatinine 1.4 H
Glucose 69 L
Calcium 8.8
Total Bilirubin 0.4
AST 14 L
ALT < 10
Alkaline Phosphatase 82
Vital Signs:
Vital Signs
Temp Pulse Resp BP Pulse Ox
98.1 F 59 16 141/59 93
03/12/24 07:15 03/12/24 07:15 03/12/24 07:15 03/12/24 07:15 03/12/24 07:15
I&O
03/11/24 03/12/24 03/13/24
06:59 06:59 06:59
Intake Total 1650 / 1650 1600 / 1600
Balance 1650 / 1650 1600 / 1600
[2024-03-12 11:42] LABS: Hematocrit 25.4 % (39.0-52.0); Hemoglobin 7.8 g/dL (13.0-18.0)
[2024-03-12] MEDS: DEMADEX 20 MG PO (11:58)
[2024-03-12 12:08] LABS: Glucose - Point of Care 164 mg/dl (70-99)
[2024-03-12 12:09] VITALS: BMI 28.7
[2024-03-12 12:29] VITALS: BP 147/56
[2024-03-12] MEDS: VITAMIN D3 (cholecalciferol) 100 MCG PO (13:25)
[2024-03-12] MEDS: NOVOLOG FLEXPEN-LOW RESISTANCE 1 UNITS SC (13:25)
--- NOTE | 2024-03-12 13:41 | W.DCSUMMARY ---
Discharge Summary
Discharge Data
Date of Admission: 03/09/24
Date of Discharge: 03/12/24
-
Pending Results: No
Hospital Course
Next 83-year-old male with past medical history of squamous of carcinoma of the lung, anemia, chronic diastolic congestive heart failure, CKD, diabetes mellitus, bradycardia, CAD status post CABG, paroxysmal atrial fibrillation, COPD/eczema,
hyperlipidemia, BPH came to the hospital with sepsis secondary to E. coli urinary tract infection. Patient urine culture grew E. coli with resistant to Kenalog. Patient was initially started on IV antibiotics later transitioned to oral Augmentin
upon discharge. Ultrasound of the kidneys/bladder was done which did not show any signs of hydronephrosis. Patient was also found to be anemic which was likely thought was secondary to chemotherapy and hemodilution. Repeat hemoglobin on the day
of discharge was better than the same morning hemoglobin. Since patient hemoglobin was not dropping and he was feeling better, he was then discharged home with instructions to follow-up with all his physicians outpatient. He was instructed to get
repeat CBC with his primary care provider outpatient.
Discharge Plan
-
Patient Disposition: Home (Routine Discharge)
Discharge Diagnosis/Procedures: Sepsis secondary to E. coli urinary tract infection
Anemia
History of lung cancer
Chronic kidney disease
Diet: As tolerated
Activity: As tolerated
Driving Restrictions: As prior to admission
Bathing Restrictions: None
Blood Work: Repeat hemoglobin next week with primary care provider
Referrals:
Debi Shin MD [Active] -
Rodrigo Villa DO [Family Provider] - in less than 1 week
Lupillo Bates MD [Non-Admitting Privileges] -
Prescriptions:
New
amoxicillin-pot clavulanate 500-125 mg Tablet
1 tab PO Q12 Qty: 16 0RF
Continued
rosuvastatin [Crestor] 40 MG tablet
40 mg PO DAILY@1600
tamsulosin 0.4 mg Capsule
0.4 mg PO BID
glipizide 5 mg Tablet Extended Release 24hr
5 mg PO BID
azelastine 137 mcg (0.1 %) Aerosol,Adrian
1 spray INTRANASAL BIDPRN PRN (Reason: congestion)
Eliquis 2.5 mg Tablet
2.5 mg PO BID Qty: 60 0RF
psyllium Packet
1 packet PO DAILYPRN PRN (Reason: constipation)
clopidogrel 75 mg Tablet
75 mg PO DAILY
lidocaine-prilocaine 2.5-2.5 % Cream
1 applic TOPICAL DAILYPRN PRN (Reason: prior to port access)
Patient Comments:
01/05/2024, use when accessing port site.
Mucinex DM 30-600 mg Tablet Extended Release 12 Hr
1 tab PO [id number] PRN (Reason: congestion) Qty: 0
cholecalciferol (vitamin D3) 50 mcg (2,000 unit) Tablet,Chewable
100 mcg PO NOON
Ultimate Mena Probiotic 30 billion cell Capsule,Delayed Release(Dr/Ec)
1 cap PO DAILY
amiodarone [Pacerone] 200 mg tablet
200 mg PO DAILY@1600
ondansetron HCl 8 mg tablet
8 mg PO Q8HPRN PRN (Reason: nausea/vomiting)
prochlorperazine maleate 10 mg tablet
10 mg PO Q6HPRN PRN (Reason: nausea/vomiting)
torsemide 20 mg tablet
20 mg PO MOWEFR
insulin glargine [Lantus Solostar U-100 Insulin] 100 unit/mL (3 mL) insulin pen
10 unit SC QPM
Discharge Orders:
Discharge Patient (As Directed); Ordered 03/12/24
Ordered By: Boy Burch
Discharge Date and Time
Discharge Date/Time: 03/12/24 15:46
Print Language: GREEK
--- NOTE | 2024-03-12 14:32 | CM ---
Patient has been medically cleared for discharge to home with resumption of [facility], PT/OT services. Patient's will transport home.
Magaly has been notified.
Magaly .
[2024-03-12 14:53] VITALS: BP 97/50
== END 2024-03-12 15:46 | disposition home or self-care (01) | DRG 872 ==
LOC: 2 NORTH 21:43
PROVIDERS: Clinical Nurse Specialist Family Health; Physician Assistant; ADMITTING PHYSICIAN Hospitalist; ATTENDING PHYSICIAN Internal Medicine; EMERGENCY PHYSICIAN Emergency Medicine; FAMILY PHYSICIAN Family Medicine
DX: A41.51 Sepsis due to Escherichia coli [E. coli] (principal); N39.0 Urinary tract infection, site not specified; I13.0 Hypertensive heart and chronic kidney disease with heart failure and stage 1 through stage 4 chronic kidney disease, or unspecified chronic kidney disease; I50.32 Chronic diastolic (congestive) heart failure; C34.90 Malignant neoplasm of unspecified part of unspecified bronchus or lung; N18.32 Chronic kidney disease, stage 3b; E11.22 Type 2 diabetes mellitus with diabetic chronic kidney disease; I25.10 Atherosclerotic heart disease of native coronary artery without angina pectoris; I48.0 Paroxysmal atrial fibrillation; J43.9 Emphysema, unspecified; D64.81 Anemia due to antineoplastic chemotherapy; G47.33 Obstructive sleep apnea (adult) (pediatric); I45.10 Unspecified right bundle-branch block; E78.00 Pure hypercholesterolemia, unspecified; R33.8 Other retention of urine; N40.1 Benign prostatic hyperplasia with lower urinary tract symptoms; Z92.3 Personal history of irradiation; Z87.891 Personal history of nicotine dependence; Z79.01 Long term (current) use of anticoagulants; Z79.4 Long term (current) use of insulin
CPT/HCPCS: 71046; 76775; 80053; 81003; 81015; 82962; 83036; 85014; 85018; 85025; 86850; 86900; 86901; 87040; 87077; 87086; 87186; 87811; 96365; 97162; 97166; 99285

== ENCOUNTER 2024-05-21 20:08 | Inpatient (IN) | payer MEDICARE, OTHER, SELFPAY ==
[2024-05-21] VITALS (13 sets, daily range): BP systolic 95–143; BP diastolic 45–70; BMI 28.5; BMI 28.4
--- NOTE | 2024-05-21 13:38 | EDRN ---
IV VAT RN paged for Port access at this time.
--- NOTE | 2024-05-21 13:45 | EDRN ---
Mary Biswas PA in to see pt at this time.
--- NOTE | 2024-05-21 13:52 | ED.GENMED ---
History of Present Illness
General
Chief Complaint: Weakness
Time Seen by Provider: 05/21/24 13:29
History of Present Illness
History of Present Illness:
83-year-old male with history of lung cancer currently on Keytruda presents to the emergency department for evaluation of general fatigue and weakness for the past several days. States that his appetite has been poor recently as well. Denies any
black or bloody stools, denies abdominal pain, denies any chest pain at present. No fevers but did have chills over the weekend.
Past History
Past History
ED Past Medical History: CAD, HTN, Hypercholesterolemia, Renal failure, Other (BPH, urinary retention), Other (Peripheral arterial disease) and Other (V tach/V-fib arrest, [place], CAD, CABG, PCI LM and LCx 06/2015, A-fib, PVD with multiple peripheral
interventions including bypass, AAA)
ED Past Surgical History: Cardiac (CABG x 26 Apr 2015, Bilateral carotid endarterectomies 2018, ), Cholecystectomy and Other (Vascular lower extremity bypass)
Social History
Tobacco: Former smoker
Alcohol: None
Drug: None
Personal:
Living: with family
Review of Systems
Review of Systems
Allergies reviewed?: Yes
All Other Systems: ROS reviewed and negative except as documented in HPI and ROS
Phy Exam
Physical Exam
Physical Exam:
GEN: Generally pale, chronically ill-appearing
Eyes: PERRLA, EOMs intact, no scleral icterus
HENT: NCAT, oral mucosa moist
Lungs: CTAB, no wheezes, rales, rhonchi, normal chest wall excursion
Cardiac: RRR, no M/R/G, no peripheral edema. Radial pulses 2+ bilat
Abdomen: S, NT, ND, NABS, no masses or hepatosplenomegaly
Neuro: AO x 3
MSK: No gross deformity or ecchymosis. No edema. No digital clubbing
Skin: No rashes, petechiae. Normal color, no pallor or jaundice.
Psych: Calm, cooperative, proper hygiene
Course
Orders/Labs/Results
Orders:
Orders
05/21/24 13:50
0.9% Sodium Chloride 500 ml [Nss] 500 ml IV BOLUS
CR Chest - 2 Views Urgent
Comment:
Reason For Exam: weakness/SOB
05/21/24 14:01
Type+Screen Urgent
Complete Blood Count/With Diff Urgent
Comprehensive Metabolic Panel Urgent
Troponin I Urgent
05/21/24 16:11
Lidocaine 2% [Lidocaine Uro-Jet 2%] 1 syringe .ROUTE .[facility]
05/21/24 16:33
Urinalysis Reflex To Culture Urgent
Date Specimen was Collected: 05/21/24
Time Specimen was Collected: 16:31
Urine Microscopic Reflex Cult Urgent
Urine Culture Urgent
RADHA Source: U
Specimen Description:
Date Specimen was Collected: 05/21/24
Time Specimen was Collected: 16:31
05/21/24 17:28
Piperacillin/Tazo 3.375 Gram [Zosyn] 3.375 gram in 50 ml IV NOW
05/21/24 17:31
Bedside Glucose- Treatment ONCE
05/21/24 18:29
Blood Culture Urgent
RADHA Source: Blood/Venous
Specimen Description:
05/21/24 19:22
Admit/Transfer Patient As Directed
Co-Sign Provider:
Level of Care: Inpatient admission
Assign to:: Telemetry
Physician / Group: Dr. Jong Clarke/Hospitalists
Diagnosis: Weakness, concern for infection/UTI
Reason for Telemetry: Arrhythmia
Date to Stop Telemetry: 05/24/24
Time to Stop Telemetry: 11:00
Reason for Hospitalization: Weakness, concern for infection/UTI
Expected length of stay greater than two midnights?: Yes
ELOS- Estimated Length of Stay in days: 3
I certify the patient meets the requirements for IP care: Yes
PRN Pain Medication Management As Directed
May give lesser potent ordered pain med per pt: Yes
preference::
Protocol:: Medication orders for pain may be administered in a
manner that supports deferring to patient preference
when the pt is:
- Requesting an ordered lesser potent pain medication.
Least to most potent pain medications are defined
as: acetaminophen < NSAID < tramadol < opioids
(morphine, oxycodone, hydromorphone).
- Requesting a lesser dose of the same medication IF
ORDERED.
- Requesting a less intrusive route of administration
if both routes are prescribed by the provider (PO <
IV).
05/21/24 19:27
Code Status As Directed
Resuscitation Status: Full Code
05/21/24 19:38
INFECTIOUS DISEASE CONSULT Routine
Consulting Provider: Rosalind Serrano
Was physician already notified: Yes
Reason for consult: Weakness, concern for UTI - multiple Abx allergies
05/21/24 19:39
ONCOLOGY CONSULT Routine
Consulting Provider: Last Velásquez
Was physician already notified: Yes
Reason for consult: Weakness, sees Dr. Shin outpatient for cancer treatment
05/21/24 19:54
Dextrose 50%-Water [Dextrose 50% Syringe] 12.5 grams IV [id number] PRN
Glucagon [GlucaGen] 1 mg IM PRN PRN
Bedside Glucose Monitoring As Directed
Frequency: AC&HS
Additional Instructions:: Change to q6h if pt on TPN, tube feeding or not eating
05/22/24 06:00
Glycohemoglobin (HgbA1c) IN AM
05/22/24 07:30
Insulin Aspart Corrective Low [Novolog Flexpen-Low Resistance] See Protocol SC AC
05/24/24 11:00
DC Protocol for Telemetry ONCE
Abnormal Lab Results
05/21/24 05/21/24
14:01 16:33
WBC 12.4 H 10^3/uL
(4.8-10.8)
RBC 2.84 L 10^6/uL
(4.70-6.10)
Hgb 8.7 L g/dL
(13.0-18.0)
Hct 27.1 L %
(39.0-52.0)
MCV 95.4 H fL
(80.0-94.0)
MCHC 32.1 L g/dL
(33.0-37.0)
RDW 18.3 H %
(11.5-14.5)
Absolute Neuts (auto) 7.3 H 10^3/uL
(1.4-6.5)
Absolute Lymphs (auto) 1.0 L 10^3/uL
(1.2-3.4)
Absolute Monos (auto) 1.3 H 10^3/uL
(0.1-0.6)
Absolute Eos (auto) 2.8 H 10^3/uL
(0-0.7)
Lymphocytes % 8.0 L %
(20.5-51.1)
Monocytes % 10.1 H %
(1.7-9.3)
Eosinophils % 22.2 H %
(0-6)
BUN 29 H mg/dl
(9-20)
Creatinine 2.1 H mg/dL
(0.7-1.3)
Glucose 139 H mg/dl
(70-99)
AST 14 L U/L
(17-59)
Albumin 3.4 L g/dl
(3.5-5.0)
Ur Occult Blood Reflex 1+ A
(Negative)
Leukocyte Esterase Rfl 2+ A
(Negative)
Urine WBC (Reflex) 21-25 A /HPF
(0-5)
Urine Bacteria (Reflex) Many A
(Negative)
05/21/24 14:01
05/21/24 14:01
Vital Signs
Initial and Last Documented VS:
Initial Vital Signs
Temp Pulse Resp BP Pulse Ox
98.2 F 72 16 95/70 95
05/21/24 13:09 05/21/24 13:09 05/21/24 13:09 05/21/24 13:09 05/21/24 13:09
Last Documented Vital Signs
Temp Pulse Resp BP Pulse Ox
99.1 F 62 20 116/45 93
05/21/24 18:30 05/21/24 20:01 05/21/24 20:00 05/21/24 20:00 05/21/24 20:00
MDM/Problems Addressed
MDM/Problems Addressed:
83-year-old male presents with generalized weakness. His labs are reassuring with the exception of mild leukocytosis. He is likely somewhat volume depleted and is given gentle IV fluid resuscitation in the emergency department. Urinalysis is
grossly positive for UTI, given his advanced age, active cancer treatment causing some degree of immunocompromise, and general weakness, I feel he is more suitable for inpatient hospitalization.
*Critical Care Note
Total Time (30-74mins, 75-104mins- exclusive of procedures): Not Applicable
ED Attending Note
-
Portions of this chart may have been created with voice recognition software.� Occasional wrong word or��sound alike� substitutions may have occurred due to the inherent limitations of voice recognition software.
Discharge Plan
Departure
Patient Disposition: Admit
Date of Disposition: 05/21/24
Time of Disposition: 17:43
Admit to: Med/Surg
Presentation/result/management discussed w/ accepting MD/DO: Hospitalist
Discharge Problem:
Urinary tract infection
Interventions
Interventions:
*Risk Screen - Suicide Last Done: 05/21/24 14:20
*General Assessment Last Done: 05/21/24 14:20
*Neglect/Abuse Screening Last Done: 05/21/24 14:20
ED- Fall Risk Assessment Last Done: 05/21/24 14:20
*ED COVID-19 Vaccine History Last Done: 05/21/24 14:20
*Nursing Disposition Last Done: 05/21/24 20:32
ED- Cardiac Assessment Last Done: 05/21/24 14:25
ED- Neurological Assessment Last Done: 05/21/24 14:25
ED- Pulmonary Assessment Last Done: 05/21/24 14:25
Discharge Date and Time
Discharge Date/Time: 05/21/24 20:33
--- NOTE | 2024-05-21 13:52 | EDRN ---
IV VAT RN in w/ pt at this time to access L ACW port at this time and draw ordered labs.
[2024-05-21 14:16] LABS: Hematocrit 27.1 % (39.0-52.0); Hemoglobin 8.7 g/dL (13.0-18.0); Mean Corp Hgb Conc. 32.1 g/dL (33.0-37.0); Mean Corpuscular Hgb 30.6 pg (27.0-31.0); Mean Corpuscular Volume 95.4 fL (80.0-94.0); Mean Platelet Volume 8.9 fL (7.4-10.4); Platelet Count 201 10^3/uL (130-400); Red Blood Cell Count 2.84 10^6/uL (4.70-6.10); Red Cell Dist. Width 18.3 % (11.5-14.5); White Blood Cell Count 12.4 10^3/uL (4.8-10.8)
[2024-05-21 14:28] LABS: ALT (SGPT) < 10 U/L (0-50); AST (SGOT) 14 U/L (17-59); Albumin 3.4 g/dl (3.5-5.0); Alkaline Phosphatase 75 U/L (38-126); Blood Urea Nitrogen 29 mg/dl (9-20); Calcium 8.6 mg/dl (8.4-10.2); Carbon Dioxide 27 mmol/L (22-30); Chloride 100 mmol/L (98-107); Estimated Creatinine Clearance 29 ml/min; Glucose 139 mg/dl (70-99); Potassium 4.4 mmol/L (3.5-5.1); Sodium 136 mmol/L (135-145); Total Bilirubin 0.8 mg/dl (0.2-1.3); eGFR 30.85
[2024-05-21 14:38] LABS: Troponin I 0.031 ng/ml
--- NOTE | 2024-05-21 15:15 | EDRN ---
Mary Biswas PA in to see pt and informed pt of need for urine sample.
[2024-05-21] MEDS: NSS 500 IV (15:19)
[2024-05-21 15:23] LABS: % Basophils 0.5 % (0-2); % Eosinophils 22.2 % (0-6); % Immature Granulocytes 0.3 % (0-0.5); % Monocytes 10.1 % (1.7-9.3); % Neutrophils 58.9 % (42.2-75.2); Absolute Basophils 0.1 10^3/uL (0-0.2); Absolute Eosinophils 2.8 10^3/uL (0-0.7); Absolute Monocytes 1.3 10^3/uL (0.1-0.6); Absolute Neutrophils 7.3 10^3/uL (1.4-6.5); Nucleated Red Blood Cells % 0 % (-)
--- NOTE | 2024-05-21 15:40 | EDRN ---
Mary Biswas PA in to see pt at 15:40 and requested from pt a straight cath urine spec for which pt agreed.
--- NOTE | 2024-05-21 15:40 | EDRN ---
Pt OOB to attempt urine spec in BR at 15:30. This RN remained w/ pt while in BR. Pt unable to void and then started to sway and asked to get him back to stretcher. Once on Stretcher pt was feeling faint. Germain WEIR PCT assisted me to lie pt down on
stretcher flat. w/ VSS taken and Mary MAURO informed.
--- NOTE | 2024-05-21 15:40 | EDRN ---
Pt was sleeping and POX was in mid to upper 80's. Pt awoke on this RNs entrance into room and POX was 90-93%. This RN informed Mary MAURO who said not to start oxygen on pt at this time.
[2024-05-21 17:00] LABS: Urine Albumin Negative (Neg - Trace); Urine Bilirubin Negative (Negative); Urine Character Very Cloudy (Clear); Urine Color Yellow; Urine Glucose Negative (Negative); Urine Ketone Negative (Negative); Urine Leukocyte 2+ (Negative); Urine Nitrite Negative (Negative); Urine Occult Blood 1+ (Negative); Urine Specific Gravity 1.015 (<1.030); Urine Urobilinogen Negative (Neg - 1+)
[2024-05-21 17:16] LABS: Urine Bacteria Many (Negative); Urine Red Blood Cell 0-2 /HPF (0-2); Urine White Cell 21-25 /HPF (0-5)
[2024-05-21 17:54] LABS: Glucose - Point of Care 72 mg/dl (70-99)
--- NOTE | 2024-05-21 18:32 | EDRN ---
Blood cultures x1 set drawn and sent to lab at 18:30 taken from Jose G MALDONADO
[2024-05-21] MEDS: ZOSYN 50 IV (18:33)
--- NOTE | 2024-05-21 19:43 | HPS.HSE ---
Family Physician
-
Family Physician: Rodrigo Villa
Chief Complaint
-
Generalized weakness
History of Present Illness
83-year-old male with past medical history of squamous of carcinoma of the lung, anemia, chronic diastolic congestive heart failure, CKD, diabetes mellitus, bradycardia, CAD status post CABG, paroxysmal atrial fibrillation, COPD/eczema,
hyperlipidemia, BPH and sepsis secondary to E. coli urinary tract infection, presented after weakness that started about 48 hours prior. Patient says he can still walk with a cane but has been feeling more weak than usual. He denied fever, chills or
any other symptoms.
Medical History
Past Medical History
Past Medical History: Reports Other (As per HPI above)
Past Surgical History: Reports Other (Cardiac (CABG x 26 Apr 2015, PCI, Bilateral carotid endarterectomies 2018, ), Cholecystectomy and Other (Vascular lower extremity bypass))
Social History
Tobacco: Non-smoker
Alcohol: None
Drug: None
Family History
Family History: Not pertinent
Allergies / Home Medications
Allergies reflects when Allergies were last updated in [facility].
Home Medications with original date entered in [facility]
Allergy/Medication List:
Allergies
Allergy/AdvReac Type Severity Reaction Status Date / Time
ZACHARY Inhibitors Allergy Shortness Verified 05/21/24 13:12
of
Breath-possible
angioedema-pharm
to review
Cephalosporins Allergy Eosinophili Verified 05/21/24 13:12
a
Iodinated Contrast Media Allergy affected Verified 05/21/24 13:12
[Iodinated Contrast Media - kidneys
Oral and]
sulfamethoxazole Allergy Rash Verified 05/21/24 13:12
[From Bactrim]
trimethoprim [From Bactrim] Allergy Rash Verified 05/21/24 13:12
Home Medications
rosuvastatin 40 mg tablet (Crestor) 40 mg PO HS High cholesterol 01/22/19
tamsulosin 0.4 mg capsule 0.4 mg PO BID Urinary issue 07/15/22
glipizide 5 mg tablet, extended release 24 hr 5 mg PO BID Diabetes 11/17/22
azelastine 137 mcg (0.1 %) nasal spray 1 spray intranasal BIDPRN PRN congestion 09/14/23
apixaban 2.5 mg tablet (Eliquis) 2.5 mg PO BID #60 tabs 12/03/23
Lactobacillus-Bifidobacterium 30 billion cell capsule,delayed release (Ultimate Mena Probiotic) 1 cap PO DAILY Gastrointestinal Issue 01/05/24
amiodarone 200 mg tablet (Pacerone) 200 mg PO HS Arrhythmia 01/05/24
cholecalciferol (vitamin D3) 50 mcg (2,000 unit) chewable tablet 100 mcg PO HS Supplement 01/05/24
clopidogrel 75 mg tablet 75 mg PO DAILY Blood Clot Prevention/Tx 01/05/24
dextromethorphan-guaifenesin 30 mg-600 mg tablet extended [id number] hr (Mucinex DM) 1 tab PO [id number] PRN congestion ##0 01/05/24
psyllium 1 packet PO HS 01/05/24
insulin glargine 100 unit/mL (3 mL) subcutaneous pen (Lantus Solostar U-100 Insulin) 10 unit SC DAILY@1900 Diabetes 03/09/24
torsemide 20 mg tablet 20 mg PO SUTUWETHFR Fluid Retention/Swelling 03/09/24
acetaminophen 325 mg tablet (Tylenol) 650 mg PO Q6HPRN PRN mild pain 05/21/24
ammonium lactate 12 % lotion 1 applic topical DAILYPRN PRN dry skin on legs 05/21/24
triamcinolone acetonide 0.1 % topical ointment 1 applic topical BIDPRN PRN rash on buttocks 05/21/24
Review of Systems
-
A 12 point ROS was completed and negative except as noted: Yes
Physical Exam
Vital Signs
Vital Signs
Temp Pulse Resp BP Pulse Ox
99.1 F 77 21 143/70 91
05/21/24 18:30 05/21/24 18:30 05/21/24 18:30 05/21/24 18:00 05/21/24 18:30
Physical Exam
General: No Apparent Distress and Conversant
HEENT: NormoCephalic
Respiratory: Clear
Cardiac: S1/S2 and Regular Rhythm
GI: Soft, Non Tender and Normal Bowel Sounds
Musculoskeletal: No Cyanosis and No Edema
Skin: Warm and Dry
Neuro: Awake, Alert, AO x 3 and Nonfocal/grossly intact
Psych: Calm and Intact Judgment/Insight
Laboratory Results
-
05/21/24 14:01
05/21/24 14:01
Laboratory Results
Total Bilirubin 0.8 mg/dl (0.2-1.3) 05/21/24 14:01
AST 14 U/L (17-59) L 05/21/24 14:01
ALT < 10 U/L (0-50) 05/21/24 14:01
Alkaline Phosphatase 75 U/L (38-126) 05/21/24 14:01
Troponin I 0.031 ng/ml 05/21/24 14:01
Impression/Plan
-
Assessment/Plan
#Generalized Weakness in the Setting of Cancer
#Concern for UTI
#History of E. coli UTI
#Leukocytosis
-Based on previous sensitivities, have continued patient on Zosyn
-Follow urine and blood cultures
-Consulted ID and Oncology, appreciate evaluation and recommendations
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
-Primary oncologist is Dr. Shin
-History of chemotherapy
-No on Keytruda, as per patient
#Anemia secondary to chemotherapy and some heme dilution
-hgb 8.7 on admission; better than 7.8 in February 2024
#Chronic diastolic congestive heart failure
-Follow I/O, daily weights
-restart torsemide 20 mg Tuesday
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
-Per previous reports, baseline Cr 1.7
-Creatinine this admission 2.1
-Follow BMP, avoid nephrotoxic agents as much as possible
#Diabetes mellitus type 2
-Insulin Sliding Scale and Accuchecks
#RBBB
#Sinus bradycardia
#Hx profound bradycardia on metoprolol which was DC'd in December
#CAD s/p CABG KINCAID-LAD 04/2015. PCI LM and LCX 06/2015
# 09/2022 post cath with patent KINCAID to LAD and stent and no new obstructive CAD.
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
-Continue Eliquis 2.5 mg twice daily, Plavix 75 mg daily
#Paroxysmal AFib
-Continue amiodarone 20 mg daily, Eliquis 2.5 mg twice daily
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
#Former smoker
#Hypercholesterolemia
-Continue Crestor
#BPH
-Continue Flomax 0.4 mg twice daily
DVT PPx: Eliquis
Code Status: Full code
[2024-05-21 22:00] LABS: Glucose - Point of Care 122 mg/dl (70-99)
[2024-05-21] MEDS: ELIQUIS 2.5 MG PO (23:39)
[2024-05-21] MEDS: PACERONE 200 MG PO (23:40)
[2024-05-21] MEDS: METAMUCIL, KONSYL 1 PACKET PO (23:40)
[2024-05-21] MEDS: FLOMAX 0.4 MG PO (23:40)
[2024-05-21] MEDS: CRESTOR 40 MG PO (23:40)
[2024-05-21] MEDS: VITAMIN D3 (cholecalciferol) 100 MCG PO (23:40)
[2024-05-22] VITALS (9 sets, daily range): BP systolic 76–138; BP diastolic 41–77; PULSE 63; O2SAT 98; BMI 28.4
[2024-05-22] MEDS: ZOSYN 50 IV ×2 (01:45→06:37)
[2024-05-22] MEDS: FLUSH (NSS) 1 FLUSH IV (06:38)
[2024-05-22 07:36] LABS: Glucose - Point of Care 86 mg/dl (70-99)
[2024-05-22] MEDS: FLOMAX 0.4 MG PO ×2 (08:53→22:05)
[2024-05-22] MEDS: PLAVIX 75 MG PO (08:53)
[2024-05-22] MEDS: ELIQUIS 2.5 MG PO ×2 (08:53→22:06)
[2024-05-22] MEDS: NOVOLOG FLEXPEN-LOW RESISTANCE SC ×4 (08:53→17:29)
--- NOTE | 2024-05-22 09:13 | CON.ONC ---
Impression
Impression
Pt is an 83 YO M with history of SCLC of the MICHEAL s/p SBRT, currently on Keytruda with progressive weakness, falls and UTI.
Plan
Plan
- continue hospitalist/ ID recommendations for UTI.
- Continue IV Zosyn
- Hb is low (8.7) but higher than previous admissions. Continue to monitor
- Pt feels deconditioned and week. Reccomending PT/OT consult in hospital and resuming home PT with DC
- Consider CT Head due to recent history of falls and blood thinner use
Patient History
History of Present Illness
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 Recently, has been
feeling weaker than normal, causing him to fall but due to deconditioned state is not able to catch himself. He reports no LOC or head injury. He is on blood thinners. He has significant weakness and intermittent L-sided chest pain that resolves
with 2 Tyenol.He reports that he does not have any headaches, ND, SOB, CP, abdominal pain. He uses a walker/cane at home for ambulation.
Past-Medical/Surgical History
SCLC
Anemia
diastolic congestive HF
CKD
DM
CAD s/p CABG
paroxsysmal AFib
COPD
HLD
BPH
Patient Medication
�Medication �Instructions �Recorded �Confirmed �Last Taken �Type
rosuvastatin 40 mg tablet (Crestor) 40 mg PO HS High cholesterol 01/22/19 05/21/24 05/20/24 History
tamsulosin 0.4 mg capsule 0.4 mg PO BID Urinary issue 07/15/22 05/21/24 05/21/24 History
glipizide 5 mg tablet, extended 5 mg PO BID Diabetes 11/17/22 05/21/24 05/21/24 History
release 24 hr
azelastine 137 mcg (0.1 %) nasal 1 spray intranasal BIDPRN PRN 09/14/23 05/21/24 11/18/23 History
spray congestion
apixaban 2.5 mg tablet (Eliquis) 2.5 mg PO BID #60 tabs 12/03/23 05/21/24 05/21/24 Rx
Lactobacillus-Bifidobacterium 30 1 cap PO DAILY Gastrointestinal 01/05/24 05/21/24 05/21/24 History
billion cell capsule,delayed Issue
release (Ultimate Mena Probiotic)
amiodarone 200 mg tablet (Pacerone) 200 mg PO HS Arrhythmia 01/05/24 05/21/24 05/20/24 History
cholecalciferol (vitamin D3) 50 100 mcg PO HS Supplement 01/05/24 05/21/24 05/20/24 History
mcg (2,000 unit) chewable tablet
clopidogrel 75 mg tablet 75 mg PO DAILY Blood Clot 01/05/24 05/21/24 05/21/24 History
Prevention/Tx
dextromethorphan-guaifenesin 30 1 tab PO [id number] PRN congestion ##0 01/05/24 05/21/24 Unknown History
mg-600 mg tablet extended
hr (Mucinex DM)
psyllium 1 packet PO HS 01/05/24 05/21/24 05/20/24 History
insulin glargine 100 unit/mL (3 10 unit SC DAILY@1900 Diabetes 03/09/24 05/21/24 05/20/24 History
mL) subcutaneous pen (Lantus
Solostar U-100 Insulin)
torsemide 20 mg tablet 20 mg PO SUTUWETHFR Fluid 03/09/24 05/21/24 05/20/24 History
Retention/Swelling
acetaminophen 325 mg tablet 650 mg PO Q6HPRN PRN mild pain 05/21/24 05/21/24 Unknown History
(Tylenol)
ammonium lactate 12 % lotion 1 applic topical DAILYPRN PRN dry 05/21/24 05/21/24 Unknown History
skin on legs
triamcinolone acetonide 0.1 % 1 applic topical BIDPRN PRN rash 05/21/24 05/21/24 Unknown History
topical ointment on buttocks
Active Medications
Generic Name Dose Route Start Last Admin
Trade Name Freq PRN Reason Stop Dose Admin
Acetaminophen 650 mg 05/21/24 20:50
Acetaminophen 325 Mg Tablet PO 06/18/24 20:49
Q6HPRN PRN
mild pain
Amiodarone HCl 200 mg 05/21/24 22:00 05/21/24 23:40
Amiodarone 200 Mg Tablet PO 06/18/24 21:59 200 mg
HS KALANI Administration
Ammonium Lactate 0 applic 05/21/24 20:50
Ammonium Lactate 12% (Lotion) 240 Ml Bottle TOPICAL 06/18/24 20:49
DAILYPRN PRN
dry skin on legs
Apixaban 2.5 mg 05/21/24 20:50 05/22/24 08:53
Apixaban (Eliquis) 2.5 Mg Tablet PO 06/18/24 20:49 2.5 mg
BID KALANI Administration
Bisacodyl 10 mg 05/21/24 20:50
Bisacodyl 10 Mg Rectal Suppository RECTAL 06/18/24 20:49
[id number] PRN
constipation
Cholecalciferol 100 mcg 05/21/24 22:00 05/21/24 23:40
Cholecalciferol (Vitamin D3) 50 Mcg Tablet (2,000 Units) PO 06/18/24 21:59 100 mcg
HS KALANI Administration
Clopidogrel Bisulfate 75 mg 05/22/24 08:00 05/22/24 08:53
Clopidogrel 75 Mg Tablet PO 06/19/24 07:59 75 mg
DAILY KLAANI Administration
Dextrose 12.5 grams 05/21/24 19:54
Dextrose 50% (0.5 Grams/Ml) 50 Ml Syringe IV 06/18/24 19:53
[id number] PRN
hypoglycemia
Protocol
Glucagon 1 mg 05/21/24 19:54
Glucagon 1 Mg Vial IM 06/18/24 19:53
PRN PRN
hypoglycemia
Protocol
Guaifenesin 600 mg 05/21/24 21:14
Guaifenesin 600 Mg Extended Release Tablet PO 06/18/24 21:13
[id number] PRN
congestion
Heparin Sodium (Porcine) 500 unit 05/22/24 07:12 05/22/24 08:46
Heparin Flush Pf (100 Unit/Ml) 5 Ml Syringe IV 06/19/24 03:44 500 unit
PRN PRN Administration
SC PORT ACCESS
Piperacillin Sod/Tazobactam Sod 2.25 grams in 50 mls @ 100 mls/hr 05/22/24 00:00 05/22/24 06:37
Zosyn IV 50 mls
Q6H KALANI Administration
Insulin Glargine 10 units/ 0.1 mls @ 0 mls/hr 05/22/24 19:00
Device SC 06/19/24 18:59
DAILY@1900 KALANI
As Directed
Insulin Aspart 0 units 05/22/24 07:30 05/22/24 08:53
Insulin Aspart Low Resistance 300 Units/3 Ml Pen.Injctr SC 06/19/24 07:29 Not Given
AC KALANI
Protocol
Lactobacillus/Bifidobacterium 1 cap 05/22/24 08:00
Lactobac/Bifidobac (Visbiome) PO 06/19/24 07:59
DAILY KALANI
Polyethylene Glycol 17 grams 05/21/24 20:50
Polyethylene Glycol Powder 17 Grams Packet PO 06/18/24 20:49
DAILYPRN PRN
constipation
Psyllium Hydrophilic Mucilloid 1 packet 05/21/24 22:00 05/21/24 23:40
Psyllium Packet PO 06/18/24 21:59 1 packet
HS KALANI Administration
Rosuvastatin Calcium 40 mg 05/21/24 22:00 05/21/24 23:40
Rosuvastatin (Crestor) 40 Mg Tablet PO 06/18/24 21:59 40 mg
HS KALANI Administration
Senna/Docusate Sodium 1 tablet 05/21/24 20:50
Docusate W/Senna (Jessy-Colace) Tablet PO 06/18/24 20:49
BIDPRN PRN
constipation
Sodium Chloride 0 flush 05/21/24 21:00 05/22/24 06:38
Sodium Chloride 0.9% (Flush) Syringe IV 06/18/24 20:59 1 flush
PER PROTOCOL KALANI Administration
Tamsulosin HCl 0.4 mg 05/21/24 20:50 05/22/24 08:53
Tamsulosin 0.4 Mg Capsule PO 06/18/24 20:49 0.4 mg
BID KALANI Administration
Torsemide 20 mg 05/22/24 08:00
Torsemide 20 Mg Tablet PO 06/19/24 07:59
[id number]@0800 KALANI
Triamcinolone Acetonide 0 applic 05/21/24 20:50
Triamcinolone Acetonide 0.1% (Ointment) 15 Gram Tube TOPICAL 06/18/24 20:49
BIDPRN PRN
rash on buttocks
Review of Systems
-
History Source: Patient
Constitutional: Reports No Appetite and Weakness
EENT: Reports No Symptoms
Respiratory: Reports No Symptoms
Cardiac: Reports No Symptoms
GI: Reports No Symptoms
: Reports No Symptoms
Musculoskeletal: Reports Muscle Weakness
Skin: Reports No Symptoms
Neuro: Reports Weakness and Other (falls)
Physical Exam
-
General: Well Developed, No Apparent Distress, Comfortable, Conversant and Other (eldrly)
Cardiology: Irregular Rate/Rhythm
Pulmonary: Clear
GI: Soft
Neurology: Other (Cranial nerves intact, motor strength intact)
Skin: Warm and Dry
Psych: Calm
Labs
Lab Results
WBC 12.4 10^3/uL (4.8-10.8) H 05/21/24 14:01
RBC 2.84 10^6/uL (4.70-6.10) L 05/21/24 14:01
Hgb 8.7 g/dL (13.0-18.0) L 05/21/24 14:
Hct 27.1 % (39.0-52.0) L 05/21/24 14:01
MCV 95.4 fL (80.0-94.0) H 05/21/24 14:01
MCH 30.6 pg (27.0-31.0) 05/21/24 14:01
MCHC 32.1 g/dL (33.0-37.0) L 05/21/24 14:01
RDW 18.3 % (11.5-14.5) H 05/21/24 14:01
Plt Count 201 10^3/uL (130-400) 05/21/24 14:01
MPV 8.9 fL (7.4-10.4) 05/21/24 14:01
Abs Immat Gran (auto) 0.0 10^3/uL (0-0.05) 05/21/24 14:01
Absolute Neuts (auto) 7.3 10^3/uL (1.4-6.5) H 05/21/24 14:01
Absolute Lymphs (auto) 1.0 10^3/uL (1.2-3.4) L 05/21/24 14:01
Absolute Monos (auto) 1.3 10^3/uL (0.1-0.6) H 05/21/24 14:01
Absolute Eos (auto) 2.8 10^3/uL (0-0.7) H 05/21/24 14:01
Absolute Basos (auto) 0.1 10^3/uL (0-0.2) 05/21/24 14:01
Immature Gran % 0.3 % (0-0.5) 05/21/24 14:01
Neutrophils % 58.9 % (42.2-75.2) 05/21/24 14:01
Lymphocytes % 8.0 % (20.5-51.1) L 05/21/24 14:01
Monocytes % 10.1 % (1.7-9.3) H 05/21/24 14:01
Eosinophils % 22.2 % (0-6) H 05/21/24 14:01
Basophils % 0.5 % (0-2) 05/21/24 14:01
Creatinine 2.1 mg/dL (0.7-1.3) H 05/21/24 14:01
Vital Signs
Vital Signs
Temp Pulse Resp BP Pulse Ox
98.6 F 66 16 119/56 92
05/22/24 07:51 05/22/24 07:51 05/22/24 07:51 05/22/24 07:51 05/22/24 07:51
--- NOTE | 2024-05-22 10:52 | WOUNDNOTE ---
LOWER BACK RASH
--- NOTE | 2024-05-22 10:55 | WOUNDNOTE ---
WON RN note: Patient admitted with UTI.
See H&P for complete history. Lives with .
PMH: Diabetic neuropathy, stroke, lung cancer-on Keytruda, CAD,CHF,HTN,DC,CABG 2015, Fem Pop bypass.
Wound Location and type/assessment: Patient admitted with: L knee blister s/p fall patient states. L buttock with what appears to be open from shearing rather than true pressure. Patient manages on own by putting a bordered gauze over site. Patient
reports he does not have incontinence although there was some staining on sheets, linens changed. Patient also reports he has become weaker lately and sits allot, otherwise can ambulate on own with cane. Does not have an offloading cushion for chair
at home patient confirmed. R buttock blanchable and heels intact.
Appetite:Poor, patient states he has lost his appetite recently. Encouraged protein in diet.
Pressure redistribution devices in place: On Accumax, turns self in bed easily. Pressure ulcer prevention measures reviewed with patient, states he understands. Gave patient an air chair cushion and instructed he can take home.
Plan: changed silicone foam on L buttock ulcer, and applied foam to L knee serous filled blister.
Will confirm orders with hospitalist and updated nurse Hathaway. Updated care plan and will follow as needed.
Note to case management of equipment requested for discharge: None
Recommend follow up at wound care center upon discharge.
[2024-05-22 11:34] LABS: Glucose - Point of Care 236 mg/dl (70-99)
--- NOTE | 2024-05-22 11:43 | CON.PUL ---
Consultation
Consultation Request
Date/Time Consultation Requested: 05/22/24
Date/Time Consultation Performed: 05/22/24
Performing Provider: Jonas
Reason for Consultation: Nocturnal hypoxemia
Medical History
-
History of Present Illness:
Patient is an 83-year-old male with past medical history of squamous of carcinoma of the lung, anemia, chronic diastolic congestive heart failure, CKD, diabetes mellitus, bradycardia, CAD status post CABG, paroxysmal atrial fibrillation,
COPD/eczema, hyperlipidemia, BPH and sepsis secondary to E. coli urinary tract infection, presented after weakness that started about 48 hours prior. Patient says he can still walk with a cane but has been feeling more weak than usual. He denied
fever, chills or any other symptoms.
He has significant lung history, following with Dr Melgar. He was recommended to have an OP sleep study but has yet to obtain.
He is noted to have significant desaturation as inpatient. He notes more HUERTA than baseline.
Was seen in our office on 04/03/24 for SOB, 6MWT showing sats 96% on RA, dyspnea score 4/10, HR max 79
Allergies / Home Medications
Allergies
Allergy/AdvReac Type Severity Reaction Status Date / Time
ZACHARY Inhibitors Allergy Shortness Verified 05/21/24 13:12
of
Breath-possible
angioedema-pharm
to review
Cephalosporins Allergy Eosinophili Verified 05/21/24 13:12
a
Iodinated Contrast Media Allergy affected Verified 05/21/24 13:12
[Iodinated Contrast Media - kidneys
Oral and]
sulfamethoxazole Allergy Rash Verified 05/21/24 13:12
[From Bactrim]
trimethoprim [From Bactrim] Allergy Rash Verified 05/21/24 13:12
Home Medications
�Medication �Instructions �Recorded �Confirmed �Last Taken �Type
rosuvastatin 40 mg tablet (Crestor) 40 mg PO HS High cholesterol 01/22/19 05/21/24 05/20/24 History
tamsulosin 0.4 mg capsule 0.4 mg PO BID Urinary issue 07/15/22 05/21/24 05/21/24 History
glipizide 5 mg tablet, extended 5 mg PO BID Diabetes 11/17/22 05/21/24 05/21/24 History
release 24 hr
azelastine 137 mcg (0.1 %) nasal 1 spray intranasal BIDPRN PRN 09/14/23 05/21/24 11/18/23 History
spray congestion
apixaban 2.5 mg tablet (Eliquis) 2.5 mg PO BID #60 tabs 12/03/23 05/21/24 05/21/24 Rx
Lactobacillus-Bifidobacterium 30 1 cap PO DAILY Gastrointestinal 01/05/24 05/21/24 05/21/24 History
billion cell capsule,delayed Issue
release (Ultimate Mena Probiotic)
amiodarone 200 mg tablet (Pacerone) 200 mg PO HS Arrhythmia 01/05/24 05/21/24 05/20/24 History
cholecalciferol (vitamin D3) 50 100 mcg PO HS Supplement 01/05/24 05/21/24 05/20/24 History
mcg (2,000 unit) chewable tablet
clopidogrel 75 mg tablet 75 mg PO DAILY Blood Clot 01/05/24 05/21/24 05/21/24 History
Prevention/Tx
dextromethorphan-guaifenesin 30 1 tab PO [id number] PRN congestion ##0 01/05/24 05/21/24 Unknown History
mg-600 mg tablet extended
[id number] hr (Mucinex DM)
psyllium 1 packet PO HS constipation 01/05/24 05/21/24 05/20/24 History
insulin glargine 100 unit/mL (3 10 unit SC DAILY@1900 Diabetes 03/09/24 05/21/24 05/20/24 History
mL) subcutaneous pen (Lantus
Solostar U-100 Insulin)
torsemide 20 mg tablet 20 mg PO SUTUWETHFR Fluid 03/09/24 05/21/24 05/20/24 History
Retention/Swelling
acetaminophen 325 mg tablet 650 mg PO Q6HPRN PRN mild pain 05/21/24 05/21/24 Unknown History
(Tylenol)
ammonium lactate 12 % lotion 1 applic topical DAILYPRN PRN dry 05/21/24 05/21/24 Unknown History
skin on legs
triamcinolone acetonide 0.1 % 1 applic topical BIDPRN PRN rash 05/21/24 05/21/24 Unknown History
topical ointment on buttocks
Review of Systems
Vitals / Labs / Diagnostic Testing
Vital Signs
Temp Pulse Resp BP Pulse Ox
98.0 F 71 16 113/59 94
05/22/24 11:14 05/22/24 11:14 05/22/24 11:14 05/22/24 11:14 05/22/24 11:14
Diagnostic Testing:
Assessment
-
Patient is an 83-year-old male with past medical history of squamous of carcinoma of the lung, anemia, chronic diastolic congestive heart failure, CKD, diabetes mellitus, bradycardia, CAD status post CABG, paroxysmal atrial fibrillation,
COPD/eczema, hyperlipidemia, BPH and sepsis secondary to E. coli urinary tract infection, presented after weakness that started about 48 hours prior. Patient says he can still walk with a cane but has been feeling more weak than usual. He has
significant lung history, following with Dr Melgar. He is noted to have significant desaturation as inpatient at night. He notes more HUERTA than baseline. We are asked for eval.
Acute on chronic SOB wtih exertion, multifactorial
Nocturnal desaturation, suspicious for sleep apnea, has declined sleep study in past
Physical deconditioning
KATHARINE on CKD, creat 2.1
Conditions present prior to admission
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
Status post SBRT - November 2022
Progression via PET in 07/2023 s/p chemoimmunotherapy on 10/31/2023 with Keytruda and carbo/taxol
AFib
CAD s/p CABG KINCAID-LAD 04/2015
PCI LM and LCX 06/2015
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
Former smoker
HTN
Hypercholesterolemia
NIDDM
BPH
RBBB
PVD s/p vein stripping, Fem bypass 2019
b/l CEA 2018
Chronic kidney disease
History of aortic aneurysm
�
Plan:
Does not require O2 at baseline rest or with exertion
Recent 6MWT as OP no need, terminated testing early due to fatigue/lightheadedness
Ambulated today with PT without desaturation
Nocturnal desaturation noted, has been told in the past he needs sleep study
Has declined, he is now agreeable
Would not obtain nocturnal O2 study, OP PSG would be a better diagnostic test
I will expedite outpatient scheduling
I have reviewed his outpatient notes extensively including recent testing
Was seen in our office on 04/03/24 for SOB, 6MWT showing sats 96% on RA, dyspnea score 4/10, HR max 79
PFT 03/08/23: FEV1 2.41L 84%, FVC 3.77L 92%, ratio 64 (mild obstruction/stable from prior)
PFTs indicating only mild obstruction; his lung capacity demonstrates sufficient function to exercise
If he is impaired in any way, this is likely due to physical deconditioning rather than primary pulmonary etiology
I will initiate rescue inhaler to use as needed for exercise
He is planning for outpatient PFT at his next visit, which can be kept as currently scheduled
Agree with PT/OT evaluation and placement at [facility]
Follow-up with Dr. Melgar as previously scheduled-06/01/24
Discharge planning per team, we will see again as needed
Diagnostic Data
CXR 05/21/24- 1. No acute pulmonary abnormality appreciated.
2. Unchanged chronic findings of the left chest as detailed above.
PFT 03/08/23: FEV1 2.41L 84%, FVC 3.77L 92%, ratio 64 (mild obstruction/stable from prior)
PFTs 09/02/21: FEV1 2.62L 89%, FVC 4.08L 99%, ratio 64. TLC 6.65L 92%, DLCO 46% (mild obstruction, normal volumes, moderate diffusion impairment)
CT Chest/Abd/Pelvis without contrast 11-26-2023:�Fairly extensive parenchymal opacity throughout both lungs, mostly a small nodular pattern, although also having a reticulonodular and groundglass pattern. The morphologic appearance is most suggestive
of extensive bilateral pneumonia. This could represent pulmonary edema, but somewhat atypical distribution with some regions of relative sparing. Based on imaging findings alone, this could represent lymphangitic spread of carcinoma, but felt to be
unlikely based on its relatively fast appearance radiographically.
Small to moderate right pleural effusion with small left pleural effusion. No evidence for acute abnormality within the abdomen or pelvis. There is a small left inguinal hernia, with a portion of the colon protruding into the base of this small
hernia, with no evidence for obstruction. Dilation of the abdominal aorta with maximum AP dimension of 3.3 cm. Morphologic appearance of the abdominal aorta compatible with chronic dissection. Colonic diverticula with no CT evidence for
diverticulitis.
ECHO 11/28/23- Normal left ventricular size. Akinesis of the basal inferior wall. LV ejection fraction is 50-55% by Upton's method of discs and is visually estimated at 50 to 55%. Mild aortic stenosis. Peak/mean gradients across the aortic valve
are 19/10 mmHg. The aortic valve by the Continuity equation is calculated at 1.7 cm sq using an LVOT diameter of 2.0 cm. Normal pericardium without effusion. Compared to prior study of November 21, 2023, LVEF is visually mildly improved. There is
now wall motion abnormality of the inferior basal LV.
-----
Total time spent on this consultation __79__ includes review of history, physical exam, medications, laboratory data, personal review of imaging, extensive review of outpatient records, discussion with care team and respiratory therapy.
[2024-05-22] MEDS: DEMADEX 20 MG PO (12:20)
[2024-05-22] MEDS: VISBIOME 1 CAP PO (12:21)
[2024-05-22] MEDS: ZOSYN IV (12:30)
[2024-05-22 13:35] LABS: ALT (SGPT) < 10 U/L (0-50); AST (SGOT) 13 U/L (17-59); Albumin 3.2 g/dl (3.5-5.0); Alkaline Phosphatase 72 U/L (38-126); Blood Urea Nitrogen 26 mg/dl (9-20); Calcium 8.4 mg/dl (8.4-10.2); Carbon Dioxide 27 mmol/L (22-30); Chloride 99 mmol/L (98-107); Estimated Creatinine Clearance 32 ml/min; Glucose 208 mg/dl (70-99); Magnesium 2.1 mg/dl (1.6-2.3); Potassium 4.6 mmol/L (3.5-5.1); Sodium 136 mmol/L (135-145); Total Bilirubin 0.8 mg/dl (0.2-1.3); Total Protein 6.8 g/dl (6.3-8.2); eGFR 34.79
[2024-05-22 13:55] LABS: % Basophils 0.2 % (0-2); % Eosinophils 26.7 % (0-6); % Immature Granulocytes 0.4 % (0-0.5); % Lymphocytes 6.7 % (20.5-51.1); % Monocytes 9.6 % (1.7-9.3); % Neutrophils 56.4 % (42.2-75.2); Absolute Eosinophils 3.4 10^3/uL (0-0.7); Absolute Immature Granulocytes 0.1 10^3/uL (0-0.05); Absolute Lymphocytes 0.9 10^3/uL (1.2-3.4); Absolute Monocytes 1.2 10^3/uL (0.1-0.6); Absolute Neutrophils 7.2 10^3/uL (1.4-6.5); Hematocrit 28.3 % (39.0-52.0); Hemoglobin 8.9 g/dL (13.0-18.0); Mean Corp Hgb Conc. 31.4 g/dL (33.0-37.0); Mean Corpuscular Hgb 29.5 pg (27.0-31.0); Mean Corpuscular Volume 93.7 fL (80.0-94.0); Nucleated Red Blood Cells % 0 % (-); Platelet Count 204 10^3/uL (130-400); Red Blood Cell Count 3.02 10^6/uL (4.70-6.10); Red Cell Dist. Width 18.1 % (11.5-14.5); White Blood Cell Count 12.8 10^3/uL (4.8-10.8)
--- NOTE | 2024-05-22 14:17 | W.PN.HOSP.TC ---
Today's Communication/Plan
-
PT/OT, possible placement
Appreciate ID and Oncology
Assessment / Plan
Assessment / Plan
Physical Exam
General: No Apparent Distress and Conversant
HEENT: Normocephalic
Respiratory: Clear
Cardiac: S1/S2 and Regular Rhythm
GI: Soft, Non Tender and Normal Bowel Sounds
Musculoskeletal: No Cyanosis and No Edema
Skin: Warm and Dry
Neuro: Awake, Alert, AO x 3 and Nonfocal/grossly intact
Psych: Calm and Intact Judgment/Insight
Assessment/Plan
#Generalized Weakness in the Setting of Cancer
#Concern for UTI
#History of E. coli UTI
#Leukocytosis
-Based on previous sensitivities, continued patient on Zosyn initially, ID consulted, appreciate their evaluation, Zosyn stopped and Fosfomycin given
-Follow urine and blood cultures
-Consulted ID and Oncology, appreciate evaluation and recommendations
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
#New-Onset Hypoxia
-Primary oncologist is Dr. Shin
-History of chemotherapy
-No on Keytruda, as per patient
-Follows with Dr. Melgar outpatient -- consulted pulmonary
#Anemia secondary to chemotherapy and some heme dilution
-hgb 8.7 on admission -- remains -- stable; better than 7.8 in February 2024
#Chronic diastolic congestive heart failure
-Follow I/O, daily weights
-restart torsemide 20 mg Tuesday
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
-Per previous reports, baseline Cr 1.7
-Creatinine this admission 2.1-->1.9
-Follow BMP, avoid nephrotoxic agents as much as possible
#Diabetes mellitus type 2
-Insulin Sliding Scale and Accuchecks
#RBBB
#Sinus bradycardia
#Hx profound bradycardia on metoprolol which was DC'd in December
#CAD s/p CABG KINCAID-LAD 04/2015. PCI LM and LCX 06/2015
# 09/2022 post cath with patent KINCAID to LAD and stent and no new obstructive CAD.
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
-Continue Eliquis 2.5 mg twice daily, Plavix 75 mg daily
#Paroxysmal AFib
-Continue amiodarone 20 mg daily, Eliquis 2.5 mg twice daily
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
#Former smoker
#Hypercholesterolemia
-Continue Crestor
#BPH
-Continue Flomax 0.4 mg twice daily
DVT PPx: Eliquis
Code Status: Full code
Anticipated Discharge: 24 - 48 hours
Subjective/Interval History
-
Date of Service: May 22, 2024
Patient was seen and examined. He denied any new symptoms or complaints.
Objective Data
-
Labs:
Laboratory Results
05/22/24
12:53
WBC 12.8 H
Hgb 8.9 L
Hct 28.3 L
Plt Count 204
Sodium 136
Potassium 4.6
Chloride 99
Carbon Dioxide 27
BUN 26 H
Creatinine 1.9 H
Glucose 208 H
Calcium 8.4
Total Bilirubin 0.8
AST 13 L
ALT < 10
Alkaline Phosphatase 72
Vital Signs:
Vital Signs
Temp Pulse Resp BP Pulse Ox
98.0 F 71 16 113/59 94
05/22/24 11:14 05/22/24 12:20 05/22/24 11:14 05/22/24 12:20 05/22/24 11:14
I&O
05/21/24 05/22/24 05/23/24
06:59 06:59 06:59
Intake Total 100 / 100 480 / 480
Output Total 150 / 150
Balance -50 / -50 480 / 480
[2024-05-22] MEDS: MONUROL 3 GM PO (14:18)
--- NOTE | 2024-05-22 14:38 | PN.DE.MGMTRT ---
Insulin Management
- -
05/22/2024: Diabetes Management Consult
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
Pt was taking Lantus 10 units @ 1900 and Glipizide 5mg BID. Pt states that he has not been taking his diabetes meds consistently due to episodes of low blood sugars. Reports that his blood sugar has been in range of 70-100's, mostly 80's, so he
stopped taking the insulin 2 weeks ago but continued taking the Glipizide as needed. states he has a working meter- [employer] at home with enough supplies.
Last A1C was 7.1% on 03/10/24. Cr 2.1-->1.9(baseline 1.7), eGFR 34.79.
Pt awake, A/O x3, resting in bed, offers no complaints and is able to discuss diabetes mgt.
States he did not receive a dose of Lantus last evening, FBG 86 this AM. Premeal Glucose has trended up to 236 before lunch today
Will give a dose of Lantus 10 units NOW and change adm schedule to AM.
Discussed plan to reduce Glipizide to 2.5mg BID given reports of low normal blood sugars at home.
Will resume Glipizide at reduced dose of 2.5mg BID, 1st dose at dinner time. Will closely monitor and adjust dose if necessary
Change to carb controlled low cholesterol diet.
Will repeat A1C. Pt inquiring about CGM, advised him to discuss with his PCP and it can be obtained from his pharmacy with script after discharge.
Diabetes History
- -
Type of Diabetes: 2 requiring insulin
Pre-Admission Diabetes Regimen
05/22/24
12:53
Creatinine 1.9 H
Insulin Pump Settings
IP Diabetes Regimen
05/21/24 05/21/24 05/22/24
17:51 21:58 07:35
Glucose
POC Glucose 72 122 H 86
05/22/24 05/22/24
11:33 12:53
Glucose 208 H
POC Glucose 236 H
Patient Education
--- NOTE | 2024-05-22 14:39 | CM ---
Met with pt at bedside
Pt reports he lives with his in a 1 story home. 1 step to enter
Independent, uses cane at baseline
DME - cane, rolling walker
SNF - denies past hx
HH - [facility] in past. Current with [facility]
Has ride at d/c
PCP - Dr Rodrigo Gaspar
Pharm - [facility]
CM will follow for d/c needs
Plan - anticipate home no needs vs w/HH
--- NOTE | 2024-05-22 15:14 | CON.ID ---
Consultation
-
Date/Time Consultation Requested: 05/21/24 19:38
Date/Time Consultation Performed: 05/22/24 12:22
Requesting Provider: Dr Clarke
Performing Provider: Dr Anaya
Reason for Consultation: recurrent UTI
Chief Complaint / Past History
Chief Complaint
weakness, malaise
History of Present Illness
Mr Alvarez is an 83 year old male with history of SCC of the lung on keytruda, CHF, COPD/eczema, recurrent UTI due to E coli presenting here for malaise, weakness. No fevers, chills or dysuria. Reports some loose stool. Also some dyspnea and
occasional chest pain
Of note with 3 episodes of E coli UTI in the last 12 months at this institution
No recent history of renal stones
Earlier this year he was noted to have hypereosinophilia initially attributed to cephalosporins, he additionally had pneumonitis possibly due to immune check point inhibitor - treated with steroids with resolution of the eosinophilia. He remains on
most of the medications that he was on at that time.
Since arrival here he has been afebrile, BP stable wbc count initially 12.4, hgb 8.7, plt 201, AEC 2.8 on arrival and 3.4 today. Note eosinophilia was developing two months ago and was also florid oct/november of this year. This visit he also has
lymphocytopenia, no L shift, cr on arrival 2.1 from baseline of 1.4 now 1.9 with crcl 32, a1c two months ago was 7.1 this visit pending, ua 21-25 wbc/hpf, many bacteria, urine culture 100K GNR, 3 urine cultures in the last 12 months with E coli, no
history of stones on prior imaing. He was started on zoysn on arrival but has not been noted to have a resistant infection previously. ID is consulted for assistance with management.
Past History
Additional Past Medical History:
anemia, chronic diastolic congestive heart failure, CKD, diabetes mellitus, bradycardia, CAD status post CABG, paroxysmal atrial fibrillation, COPD/eczema, hyperlipidemia, BPH
Additional Past Surgical History:
(Cardiac (CABG x 26 Apr 2015, PCI, Bilateral carotid endarterectomies 2019, ), Cholecystectomy and Other (Vascular lower extremity bypass))
Allergy History:
ZACHARY Inhibitors Allergy (Verified 05/21/24 13:12)
Shortness of Breath-possible angioedema-pharm to review
Cephalosporins Allergy (Verified 05/21/24 13:12)
Eosinophilia
Iodinated Contrast Media [Iodinated Contrast Media - Oral and] Allergy (Verified 05/21/24 13:12)
affected kidneys
sulfamethoxazole [From Bactrim] Allergy (Verified 05/21/24 13:12)
Rash
trimethoprim [From Bactrim] Allergy (Verified 05/21/24 13:12)
Rash
Medications Reviewed: Yes
Social History
Tobacco: Non-Smoker
Alcohol: None
Drug: None
Family History
Family History: Not Pertinent
Review of Systems
Review of Systems
General: Negative Fever or Chills
All systems: All other systems were reviewed and were negative
Vital Signs
Temp Pulse Resp BP Pulse Ox
97.9 F 72 17 138/58 93
05/22/24 15:13 05/22/24 15:13 05/22/24 15:13 05/22/24 15:13 05/22/24 15:13
Physical Exam
Physical Exam
Constitutional: No Acute Distress and Chronically Ill
Cardiovascular: Regular Rate and S1/S2; Negative Murmur or Rub
Pulmonary: Clear and Symmetric; Negative Wheezes, Rales or Rhonchi
Gastrointestinal: Soft, Non Tender, Non Distended and Normal Bowel Sounds
Skin: Warm and Dry; Negative Rash or Jaundice
Lab / Diagnostic Study Results
05/22/24 12:53
05/22/24 12:53
Abs Immat Gran (auto) 0.1 10^3/uL (0-0.05) H 05/22/24 12:53
Absolute Neuts (auto) 7.2 10^3/uL (1.4-6.5) H 05/22/24 12:53
Absolute Lymphs (auto) 0.9 10^3/uL (1.2-3.4) L 05/22/24 12:53
Absolute Monos (auto) 1.2 10^3/uL (0.1-0.6) H 05/22/24 12:53
Absolute Basos (auto) 0.0 10^3/uL (0-0.2) 05/22/24 12:53
Immature Gran % 0.4 % (0-0.5) 05/22/24 12:53
Neutrophils % 56.4 % (42.2-75.2) 05/22/24 12:53
Lymphocytes % 6.7 % (20.5-51.1) L 05/22/24 12:53
Monocytes % 9.6 % (1.7-9.3) H 05/22/24 12:53
Eosinophils % 26.7 % (0-6) H 05/22/24 12:53
Basophils % 0.2 % (0-2) 05/22/24 12:53
Microbiology Results
Micro:
05/21/24 16:33 Urine Culture - Preliminary
Urine Gram negative bacilli
05/21/24 18:29 Blood Culture - Pending
Blood/Venous
Assessment / Plan
Probable Prostatitis
- follow urine culture anticipate E coli again - if similar isolate then plan - fosfomycin 3 gm Q3 days x 7 doses - first dose today
- recurrent infections with E coli without a nidus for recurrent infection on prior US or CT a/p suggestive of prostatitis
- on flomax
- obtain post void residual
Recurrent Hypereosinophilia
- ZACHARY 3.4 today, over 1.5 is considered significant
- most likely drug mediated - could be contributing to malaise
- discussed holding nonessential medications with Dr Clarke (in agreement) held: glipizide, mucinex, d3, dulcolax, docusate, visbiome, polyethylene glycol
- continue flomax for now as indicated for recurrent prostatitis
- CXR no recurrent infiltrates
- follow with cbc with diff with pcp next week
Care Review
Plan reviewed with: Physician (Dr Clarke - nonessential meds)
[2024-05-22] MEDS: LANTUS 0.1 UNITS SC (15:43)
[2024-05-22 16:11] LABS: Vitamin B12 919 pg/ml (239-931)
[2024-05-22 16:18] LABS: Glucose - Point of Care 154 mg/dl (70-99)
[2024-05-22] MEDS: GLUCOTROL XL (EXTENDED RELEASE) 2.5 MG PO (17:22)
--- NOTE | 2024-05-22 17:31 | PTCARENOTE ---
[place] text to hospitalist and ID that PVR was 500, awaiting orders
--- NOTE | 2024-05-22 18:35 | PTCARENOTE ---
RN attempted I&O catheter insertion per order and urine retention protocol. Insertion of catheter went in well, no urine output. Bladder scan reading >600. Will order different size coude catheter from [facility] and attempt again.
--- NOTE | 2024-05-22 19:14 | W.PN.UPDATE ---
Update Note
Progress Note Update
After discussing with urology, ordered a Sloan Catheter in the setting of patient's probable prostatitis, appreciate ID and urology. Sloan Catheter is better than continued I/O cath in this setting as discussed with urology.
--- NOTE | 2024-05-22 20:05 | CON.MD ---
Consultation - Medical
-
see dictated note
pt with long hx of bph and intermittent UTI's
follows with dr zelaya
had cysto in 2022- BPH- was being considered for operative procedure- but developed lung ca
now with advanced lung ca- on keytruda
mild luts
recent admits for ECOLI uti/bacteremia
ct in 11/2023 negative from gu standpoint- u-s 02/2024 no hydro or stones
now admitted again with weakness and UTI
ID following- has started on monurol
pt on flomax 0.8mg
does not report any difficulty urinating- but bladder scnas have been over 300cc and shivani has had trouble with last attempt at straigth cath
plan
sanchez placed by urology 350cc pvr- cloudy urine
continue flomax- add proscar
monurol as directed by ID- may also consider methenamine when antibx finished
repeat ct in am to r/o obstruction/abscess
will follow
[2024-05-22 21:38] LABS: Glucose - Point of Care 174 mg/dl (70-99)
[2024-05-22] MEDS: CRESTOR 40 MG PO (22:04)
[2024-05-22] MEDS: PACERONE 200 MG PO (22:05)
[2024-05-22] MEDS: TYLENOL 650 MG PO (22:06)
[2024-05-22] MEDS: NSS 250 IV (23:47)
[2024-05-23] VITALS (7 sets, daily range): BP systolic 84–167; BP diastolic 41–66; PULSE 59; O2SAT 97; BMI 28.4
[2024-05-23] MEDS: ProAmatine 5 MG PO
[2024-05-23 00:29] LABS: Hematocrit 27.2 % (39.0-52.0); Hemoglobin 8.7 g/dL (13.0-18.0); Mean Corpuscular Hgb 30.5 pg (27.0-31.0); Mean Corpuscular Volume 95.4 fL (80.0-94.0); Mean Platelet Volume 8.8 fL (7.4-10.4); Platelet Count 184 10^3/uL (130-400); Red Blood Cell Count 2.85 10^6/uL (4.70-6.10); Red Cell Dist. Width 17.7 % (11.5-14.5); White Blood Cell Count 13.5 10^3/uL (4.8-10.8)
--- NOTE | 2024-05-23 04:11 | W.PN.UPDATE ---
Update Note
Progress Note Update
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 HR 60's. Asymotmatic, will order Midodrine 5mg PO x 1, NSS Iv bolus 250cc. labs wnl,
one hour later BP 120's/50's. HR 60's.
[2024-05-23 05:32] LABS: Hematocrit 28.9 % (39.0-52.0); Hemoglobin 9.3 g/dL (13.0-18.0); Mean Corp Hgb Conc. 32.2 g/dL (33.0-37.0); Mean Corpuscular Hgb 30.7 pg (27.0-31.0); Mean Corpuscular Volume 95.4 fL (80.0-94.0); Mean Platelet Volume 8.9 fL (7.4-10.4); Platelet Count 193 10^3/uL (130-400); Red Blood Cell Count 3.03 10^6/uL (4.70-6.10); Red Cell Dist. Width 17.6 % (11.5-14.5); White Blood Cell Count 13.3 10^3/uL (4.8-10.8)
[2024-05-23 05:47] LABS: ALT (SGPT) < 10 U/L (0-50); AST (SGOT) 14 U/L (17-59); Albumin 3.2 g/dl (3.5-5.0); Alkaline Phosphatase 67 U/L (38-126); Blood Urea Nitrogen 29 mg/dl (9-20); Calcium 8.3 mg/dl (8.4-10.2); Carbon Dioxide 28 mmol/L (22-30); Chloride 102 mmol/L (98-107); Estimated Creatinine Clearance 34 ml/min; Glucose 79 mg/dl (70-99); Potassium 3.9 mmol/L (3.5-5.1); Sodium 139 mmol/L (135-145); Total Bilirubin 0.7 mg/dl (0.2-1.3); Total Protein 6.9 g/dl (6.3-8.2); eGFR 37.12
[2024-05-23 05:58] LABS: % Basophils 0.2 % (0-2); % Eosinophils 29.5 % (0-6); % Immature Granulocytes 0.5 % (0-0.5); % Lymphocytes 6.9 % (20.5-51.1); % Monocytes 11.4 % (1.7-9.3); % Neutrophils 51.5 % (42.2-75.2); Absolute Eosinophils 3.9 10^3/uL (0-0.7); Absolute Immature Granulocytes 0.1 10^3/uL (0-0.05); Absolute Lymphocytes 0.9 10^3/uL (1.2-3.4); Absolute Monocytes 1.5 10^3/uL (0.1-0.6); Absolute Neutrophils 6.8 10^3/uL (1.4-6.5); Nucleated Red Blood Cells % 0 % (-)
[2024-05-23 07:33] LABS: Glucose - Point of Care 90 mg/dl (70-99)
--- NOTE | 2024-05-23 07:36 | W.PN.HOSP.TC ---
Today's Communication/Plan
-
Continue Doxycycline and newly added Finasteride
Continue Sloan Catheter
Assessment / Plan
Assessment / Plan
Physical Exam
General: No Apparent Distress and Conversant
HEENT: Normocephalic
Respiratory: Clear
Cardiac: S1/S2 and Regular Rhythm
GI: Soft, Non Tender and Normal Bowel Sounds
Musculoskeletal: No Cyanosis and No Edema
Skin: Warm and Dry
Neuro: Awake, Alert, AO x 3 and Nonfocal/grossly intact
Psych: Calm and Intact Judgment/Insight
Assessment/Plan
#Generalized Weakness in the Setting of Cancer
#Concern for UTI
#History of E. coli UTI
#Probable prostatitis
#Leukocytosis
#Fever with Temperature 100.6 F on 05/22/24 evening
-Based on previous sensitivities, continued patient on Zosyn initially, ID consulted, appreciate their evaluation, Zosyn stopped and Fosfomycin given
-Continue Doxycycline
-Follow urine and blood cultures
-Consulted ID and Oncology, appreciate evaluation and recommendations
-Consulted urology due to urinary retention and need for Sloan catheter in the setting of probable prostatitis
-Continue Finasteride in addition to the patient's Tamsulosin
#Hypotension
-Status post Midodrine and IV Fluids
-Patient had asymptomatic low BP 78/38-85'/40's on 05/22/24 evening, Midodrine and IV fluids were ordered with good improvement
-Patient says that he sometimes has hypotension at home with low systolic in the 70s and that public records researcher Dr. Ferguson has been managing this
-Continue to monitor vital signs
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
#New-Onset Hypoxia
-Primary oncologist is Dr. Shin
-History of chemotherapy
-No on Keytruda, as per patient
-Follows with Dr. Melgar outpatient -- consulted pulmonary
-Will need home oxygen assessment test prior to discharge
#Anemia secondary to chemotherapy and some heme dilution
-hgb 8.7 on admission -- remains -- stable; better than 7.8 in February 2024
#Chronic diastolic congestive heart failure
-Follow I/O, daily weights
-Continue torsemide 20 mg Tuesday
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
-Per previous reports, baseline Cr 1.7
-Creatinine this admission 2.1-->1.9-->1.8
-Follow BMP, avoid nephrotoxic agents as much as possible
#Diabetes mellitus type 2
-Insulin Sliding Scale and Accuchecks
#RBBB
#Sinus bradycardia
#History of profound bradycardia on metoprolol which was DC'd in December
#CAD s/p CABG KINCAID-LAD 04/2015. PCI LM and LCX 06/2015
# 09/2022 post cath with patent KINCAID to LAD and stent and no new obstructive CAD.
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
-Continue Eliquis 2.5 mg twice daily, Plavix 75 mg daily
#Paroxysmal AFib
-Continue amiodarone 20 mg daily, Eliquis 2.5 mg twice daily
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
#Former smoker
#Hypercholesterolemia
-Continue Crestor
#BPH
-Continue Flomax 0.4 mg twice daily
DVT PPx: Eliquis
Code Status: Full code
Anticipated Discharge: 24 - 48 hours
Subjective/Interval History
-
Date of Service: May 23, 2024
Patient was seen and examined. He reported asymptomatic hypotension last night, records also show that he had a temperature of 100.6 F fever last night.
Objective Data
-
Labs:
Laboratory Results
05/23/24 05/23/24
00:14 05:15
WBC 13.5 H 13.3 H
Hgb 8.7 L 9.3 L
Hct 27.2 L 28.9 L
Plt Count 184 193
Sodium 139
Potassium 3.9
Chloride 102
Carbon Dioxide 28
BUN 29 H
Creatinine 1.8 H
Glucose 79
Calcium 8.3 L
Total Bilirubin 0.7
AST 14 L
ALT < 10
Alkaline Phosphatase 67
Vital Signs:
Vital Signs
Temp Pulse Resp BP Pulse Ox
97.7 F 65 16 127/54 96
05/23/24 03:25 05/23/24 03:25 05/23/24 03:25 05/23/24 03:25 05/23/24 03:25
I&O
05/22/24 05/23/24 05/24/24
06:59 06:59 06:59
Intake Total 100 / 100 1510 / 1510
Output Total 150 / 150 575 / 575
Balance -50 / -50 935 / 935
--- NOTE | 2024-05-23 07:43 | PN.DE.MGMTRT ---
Insulin Management
- -
05/23/2024: Diabetes Management Consult Follow up:
Patient admitted with progressive weakness, falls and UTI secondary to E.Coli. 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
Pt was taking Lantus 10 units @ 1900 and Glipizide 5mg BID. Pt states that he has not been taking his diabetes meds consistently due to episodes of low blood sugars. Reports that his blood sugar has been in range of 70-100's, mostly 80's, so he
stopped taking the insulin 2 weeks ago but continued taking the Glipizide as needed. states he has a working meter- [employer] at home with enough supplies.
Last A1C was 7.1% on 03/10/24. Cr 2.1-->1.9(baseline 1.7), eGFR 34.79.
Pt awake, A/O x3, resting in bed, offers no complaints and is able to discuss diabetes mgt.
Diet changed to carb controlled low cholesterol 05/22. Received 10 units lantus @ 1900, FBG 79 this AM. Premeal Glucose range 86 to 154 trended up to 236 before lunch 05/22.
Llantus 10 units changed to AM dosing today, reduced dose of glipizide 2.5 mg BID to start this AM with breakfast.
Will follow for further needed adjustments.
Diabetes History
- -
Type of Diabetes: 2
Pre-Admission Diabetes Regimen
05/22/24 05/23/24
12:53 05:15
Creatinine 1.9 H 1.8 H
Insulin Pump Settings
IP Diabetes Regimen
05/22/24 05/22/24 05/22/24
11:33 12:53 16:17
Glucose 208 H
POC Glucose 236 H 154 H
05/22/24 05/23/24 05/23/24
21:36 05:15 07:32
Glucose 79
POC Glucose 174 H 90
Meal type: Lunch
Meal type: Breakfast
Amount consumed: 100%
Amount consumed: 100%
Patient Education
--- NOTE | 2024-05-23 07:50 | W.PN.URO.CBU ---
Today's Communication / Plan
-
sanchez
antibx
CT
Assessment / Plan
-
chronic BPH/acute retention
UTI
plan
on flomax and proscar
await ucx- on monurol per ID
recheck CT to r/o any anatomic changes
will follow
Diagnosis
-
Date of Service: May 23, 2024
-
Patient Diagnosis:
lung cancer
recurrent UTI
urinary retention
BPH
Subjective
-
pt stable- but with some hypotension overnight
urine clear
ucx's pending
Objective
-
Vital Signs
Temp Pulse Resp BP Pulse Ox
97.7 F 65 16 127/54 96
05/23/24 03:25 05/23/24 03:25 05/23/24 03:25 05/23/24 03:25 05/23/24 03:25
Intake and Output
05/22/24 05/23/24 05/24/24
06:59 06:59 06:59
Intake Total 100 / 100 1510 / 1510
Output Total 150 / 150 575 / 575
Balance -50 / -50 935 / 935
Intake:
Oral fluids 1260 / 1260
IV fluids (Total) 250 / 250
IV piggybacks 100 / 100
Output:
Urine, Sanchez 150 / 150 575 / 575
Other:
Number of approximated SMALL 1
amounts of urine
Number of approximated MODERATE 2
amounts of urine
How many times incontinent 1
SMALL amount urine
Number of unmeasured liquid
stools
Rectum 2
Laboratory Results
05/23/24 05:15
05/23/24 05:15
Review of Systems
-
Constitutional: Fatigue
Respiratory: No Symptoms
Cardiac: No Symptoms
Abdomen/GI: No Symptoms
Physical Exam
-
General -chronically ill appearing-no acute distress
Abdomen - soft, non-tender
Genitalia - sanchez in place
[2024-05-23 07:55] LABS: Glycohemoglobin (HgbA1c) 6.5 % (4.0-5.6)
[2024-05-23] MEDS: NOVOLOG FLEXPEN-LOW RESISTANCE SC ×2 (10:01→16:38)
[2024-05-23] MEDS: FLOMAX 0.4 MG PO ×2 (10:15→20:52)
[2024-05-23] MEDS: ELIQUIS 2.5 MG PO ×2 (10:15→20:52)
[2024-05-23] MEDS: PROSCAR 5 MG PO (10:15)
[2024-05-23] MEDS: LANTUS 0.1 UNITS SC (10:15)
[2024-05-23] MEDS: PLAVIX 75 MG PO (10:15)
[2024-05-23] MEDS: GLUCOTROL XL (EXTENDED RELEASE) 2.5 MG PO ×2 (10:16→18:12)
[2024-05-23] MEDS: DEMADEX 20 MG PO (10:17)
[2024-05-23 12:02] LABS: Glucose - Point of Care 213 mg/dl (70-99)
[2024-05-23] MEDS: NOVOLOG FLEXPEN-LOW RESISTANCE 2 UNITS SC (13:14)
--- NOTE | 2024-05-23 13:47 | W.PN.ID1 ---
Date of Service
Date of Service: May 23, 2024
Today's Communication
- isolate is sensitive to doxycycline which will be simpler for patient and cheaper - switched
- plan 4 weeks of doxycycline 100 mg PO BID
Assessment / Plan
Probable Prostatitis
- follow urine culture anticipate E coli again
- isolate is sensitive to doxycycline which will be simpler for patient and cheaper - switched
- plan 4 weeks of doxycycline 100 mg PO BID
- fine for methenamine post the doxycycline
- recurrent infections with E coli without a nidus for recurrent infection on prior US or CT a/p suggestive of prostatitis
- on flomax, finasteride was added as ongoing retention, there was some mild hypotension overnight
- obtain post void residual
Recurrent Hypereosinophilia
- ZACHARY 3.4 today, over 1.5 is considered significant
- most likely drug mediated - could be contributing to malaise
- discussed holding nonessential medications with Dr Clarke (in agreement) held: glipizide, mucinex, d3, dulcolax, docusate, visbiome, polyethylene glycol
- continue flomax for now as indicated for recurrent prostatitis
- CXR no recurrent infiltrates
- follow with cbc with diff with pcp next week
follow up with pcp for cbc with diff
Chief Complaint
-: UTI
Subjective / Review of Systems
tmax 100.6 overnight
bp stable today, overnight borderline hypotension and required a 250 cc bolus
had midodrine ordered last night and promptly cancelled
Vital Signs / Physical Exam
Vital Signs
Vital Signs
Temp Pulse Resp BP Pulse Ox
98.5 F 75 17 101/51 92
05/23/24 11:15 05/23/24 11:15 05/23/24 11:15 05/23/24 11:15 05/23/24 11:15
Physical Exam
Constitutional: No Acute Distress and Chronically Ill
Cardiovascular: Regular Rate
Pulmonary: Symmetric and Non Labored
Gastrointestinal: Non Distended
Genito-Urinary: Negative Suprapubic Tenderness
Skin: Dry; Negative Rash or Jaundice
Neurological: Awake
Objective Data
Lab Data
Lab Results
05/23/24 05:15
05/23/24 05:15
Estimated Creat Clear 34 ml/min 05/23/24 05:15
Total Bilirubin 0.7 mg/dl (0.2-1.3) 05/23/24 05:15
AST 14 U/L (17-59) L 05/23/24 05:15
ALT < 10 U/L (0-50) 05/23/24 05:15
Alkaline Phosphatase 67 U/L (38-126) 05/23/24 05:15
Most recent labs reviewed.
Micro Results:
05/21/24 16:33 Urine Culture - Final
Urine Escherichia coli
05/21/24 18:29 Blood Culture - Preliminary
Blood/Venous No Growth in 24 hours- Final report to follow
--- NOTE | 2024-05-23 14:59 | CM ---
manager reliability following for discharge planning
Chart reviewed
PT recs - HH
Discussed with Pt - declined. Reports he has an outpatient center where he receives PT - he wishes to return there when discharged
manager reliability remains available for d/c needs
Plan - anticipate home no needs when medically ready
[2024-05-23 16:33] LABS: Glucose - Point of Care 97 mg/dl (70-99)
[2024-05-23] MEDS: VIBRAMYCIN 100 MG PO (20:52)
[2024-05-23] MEDS: PACERONE 200 MG PO (21:18)
[2024-05-23 21:49] LABS: Glucose - Point of Care 138 mg/dl (70-99)
[2024-05-23] MEDS: CRESTOR 40 MG PO (21:52)
[2024-05-24 03:15] VITALS: BP 117/55
[2024-05-24 06:00] VITALS: BMI 28.4
[2024-05-24 07:13] LABS: Hematocrit 28.9 % (39.0-52.0); Mean Corp Hgb Conc. 31.1 g/dL (33.0-37.0); Mean Corpuscular Hgb 29.6 pg (27.0-31.0); Mean Corpuscular Volume 95.1 fL (80.0-94.0); Mean Platelet Volume 9.5 fL (7.4-10.4); Platelet Count 200 10^3/uL (130-400); Red Blood Cell Count 3.04 10^6/uL (4.70-6.10); Red Cell Dist. Width 17.6 % (11.5-14.5); White Blood Cell Count 13.4 10^3/uL (4.8-10.8)
[2024-05-24 07:15] LABS: Glucose - Point of Care 87 mg/dl (70-99)
[2024-05-24 07:18] LABS: ALT (SGPT) < 10 U/L (0-50); AST (SGOT) 14 U/L (17-59); Albumin 3.1 g/dl (3.5-5.0); Alkaline Phosphatase 68 U/L (38-126); Blood Urea Nitrogen 30 mg/dl (9-20); Calcium 8.5 mg/dl (8.4-10.2); Carbon Dioxide 26 mmol/L (22-30); Chloride 101 mmol/L (98-107); Estimated Creatinine Clearance 32 ml/min; Glucose 74 mg/dl (70-99); Sodium 139 mmol/L (135-145); Total Bilirubin 0.5 mg/dl (0.2-1.3); Total Protein 6.8 g/dl (6.3-8.2); eGFR 34.79
[2024-05-24] MEDS: NOVOLOG FLEXPEN-LOW RESISTANCE SC ×3 (07:21→17:34)
[2024-05-24 07:26] VITALS: BP 158/68
--- NOTE | 2024-05-24 07:40 | PN.DE.MGMTRT ---
Insulin Management
- -
05/24/2024: Diabetes Management Consult Follow up:
Patient admitted with progressive weakness, falls and UTI secondary to E.Coli. 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
Pt was taking Lantus 10 units @ 1900 and Glipizide 5mg BID. Pt states that he has not been taking his diabetes meds consistently due to episodes of low blood sugars. Reports that his blood sugar has been in range of 70-100's, mostly 80's, so he
stopped taking the insulin 2 weeks ago but continued taking the Glipizide as needed. states he has a working meter- [employer] at home with enough supplies.
Last A1C was 7.1% on 03/10/24. Cr 2.1-->1.9(baseline 1.7), eGFR 34.79.
Pt awake, A/O x3, resting in bed, offers no complaints and is able to discuss diabetes mgt.
Diet changed to carb controlled low cholesterol 05/22.
05/23 Lantus 10 units changed to AM dosing, reduced dose of glipizide 2.5 mg BID to started with breakfast.
05/24 Fasting glucose 74. Will stop dinner dose of glipizide. Will continue lantus 10 units in AM with glipizide 2.5 mg in AM.
Will follow for further needed adjustments.
Diabetes History
- -
Type of Diabetes: 2
Pre-Admission Diabetes Regimen
05/24/24
05:39
Creatinine 1.9 H
Lab Results
Hemoglobin A1c 6.5 % (4.0-5.6) H 05/22/24 12:53
Insulin Pump Settings
IP Diabetes Regimen
05/23/24 05/23/24 05/23/24
12:01 16:32 21:48
Glucose
POC Glucose 213 H 97 138 H
05/24/24 05/24/24
05:39 07:14
Glucose 74
POC Glucose 87
Meal type: Breakfast
Amount consumed: 100%
Patient Education
[2024-05-24 08:14] LABS: % Basophils 0.4 % (0-2); % Eosinophils 35.1 % (0-6); % Immature Granulocytes 0.4 % (0-0.5); % Lymphocytes 8.1 % (20.5-51.1); % Monocytes 9.6 % (1.7-9.3); % Neutrophils 46.4 % (42.2-75.2); Absolute Basophils 0.1 10^3/uL (0-0.2); Absolute Eosinophils 4.7 10^3/uL (0-0.7); Absolute Immature Granulocytes 0.1 10^3/uL (0-0.05); Absolute Lymphocytes 1.1 10^3/uL (1.2-3.4); Absolute Monocytes 1.3 10^3/uL (0.1-0.6); Absolute Neutrophils 6.2 10^3/uL (1.4-6.5); Nucleated Red Blood Cells % 0 % (-)
--- NOTE | 2024-05-24 08:22 | PN.CDI ---
CDI
- -
CDI:
Physician Documentation Request
Admit Date: 05/21/24 20:08
Dear Doctor Tricia,
Clinical indicators:
The diagnosis of KATHARINE is documented in the record on 05/23 PN
There is either a lack of clinical support for this condition in the current medical record, or there is a lack of recognized standard criteria to support the condition.
- 05/23 PN 'KATHARINE vs. Chronic kidney disease stage III B'
- 'Per previous reports, baseline Cr 1.7'
Laboratory Tests
05/21/24 05/23/24 05/24/24
14:01 05:15 05:39
Creatinine 2.1 H 1.8 H 1.9 H
eGFR 30.85 37.12 34.79
The request is for one of the following:
KATHARINE remains a known or suspected condition for this patient and is further supported by (include additional documentation in the medical record)
KATHARINE has been ruled out and a more appropriate diagnosis for this patient's condition is __CKD3b .
Other (please specify)
Criteria for KATHARINE*
1 Increase in serum creatinine by > or = to 0.3 mg/dL (> or = to 26.5 micromol/L) within 48 hours, OR
2 Increase in serum creatinine to > or = to 1.5 times baseline, which is known or presumed to have occurred within 7 days, OR
3 Urine volume < 0.5 nL/kg/hour for six hours
Stages of Chronic Kidney Disease*
Level Description GFR
G1 Normal or High >90
G2 Mildly decreased 60-89
G3a Mildly to moderately decreased 45-59
G3b Moderately to severely decreased 30-44
G4 Severely decreased 15-29
G5 Kidney failure <15
Use of terms such as suspected, likely, concern for, or probable (associated with a specific diagnosis that is being evaluated, monitored, or treated as if it exists) are acceptable and can be coded in the inpatient setting, when documented at the
time of discharge.
Thank you,
Edmundo Lane RN
CDI Specialist
Please use your independent medical judgment in providing your response.
[2024-05-24] MEDS: LANTUS 0.1 UNITS SC (08:23)
[2024-05-24] MEDS: PLAVIX 75 MG PO (08:24)
[2024-05-24] MEDS: FLOMAX 0.4 MG PO ×2 (08:24→20:16)
[2024-05-24] MEDS: PROSCAR 5 MG PO (08:24)
[2024-05-24] MEDS: VIBRAMYCIN 100 MG PO ×2 (08:24→20:16)
[2024-05-24] MEDS: ELIQUIS 2.5 MG PO ×2 (08:24→20:16)
[2024-05-24] MEDS: GLUCOTROL XL (EXTENDED RELEASE) 2.5 MG PO (08:26)
[2024-05-24] MEDS: DEMADEX 20 MG PO (09:24)
[2024-05-24] MEDS: TYLENOL 650 MG PO ×2 (09:29→17:32)
--- NOTE | 2024-05-24 09:47 | W.PN.ID1 ---
Date of Service
Date of Service: May 24, 2024
Today's Communication
- plan 4 weeks of doxycycline 100 mg PO BID
- fine for methenamine post the doxycycline
-
follow up with pcp for cbc with diff in 1-2 weeks
Assessment / Plan
Probable Prostatitis due to E coli
- plan 4 weeks of doxycycline 100 mg PO BID
- fine for methenamine post the doxycycline
- on flomax, finasteride
- agree with sanchez, management per urology
Recurrent Hypereosinophilia
- continues with hypereosinophilia
- most likely drug mediated - could be contributing to malaise
- discussed holding nonessential medications with Dr Clarke (in agreement) held: glipizide, mucinex, d3, dulcolax, docusate, visbiome, polyethylene glycol
- continue flomax for now as indicated for recurrent prostatitis
- asked clinical pharmacy to review medications
- follow with cbc with diff with pcp next week
follow up with pcp for cbc with diff in 1-2 weeks
Chief Complaint
-: UTI (Prostatitis - chronic)
Subjective / Review of Systems
afebrile
no events overnight
see by urology
has sanchez
Vital Signs / Physical Exam
Vital Signs
Vital Signs
Temp Pulse Resp BP Pulse Ox
97.6 F 63 17 158/68 96
05/24/24 07:26 05/24/24 07:26 05/24/24 07:26 05/24/24 07:26 05/24/24 07:26
Physical Exam
Constitutional: No Acute Distress
Cardiovascular: Regular Rate and S1/S2; Negative Murmur or Rub
Pulmonary: Clear and Symmetric; Negative Wheezes or Rales
Gastrointestinal: Soft, Non Tender, Non Distended and Normal Bowel Sounds
Genito-Urinary: Sanchez and Clear Urine; Negative Suprapubic Tenderness
Skin: Warm and Dry; Negative Rash or Jaundice
Objective Data
Lab Data
Lab Results
05/24/24 05:39
05/24/24 05:39
Estimated Creat Clear 32 ml/min 05/24/24 05:39
Total Bilirubin 0.5 mg/dl (0.2-1.3) 05/24/24 05:39
AST 14 U/L (17-59) L 05/24/24 05:39
ALT < 10 U/L (0-50) 05/24/24 05:39
Alkaline Phosphatase 68 U/L (38-126) 05/24/24 05:39
Most recent labs reviewed.
Urine Culture Final 05/23/24-43
CC: Greater than 100,000 CFU/ML Escherichia coli
Organism 1 Escherichia coli
1. Escherichia coli
M.I.C. RX
--------- ---
Amoxicillin/Potas. Clavulanate <=8/4 S
Ampicillin <=8 S
Ampicillin/Sulbactam <=4/2 S
Aztreonam <=4 S
Cefazolin <=2 S
Ertapenem <=0.5 S
Ciprofloxacin >2 R
Gentamicin <=2 S
Meropenem <=1 S
Nitrofurantoin-Urine Only <=32 S
Piperacillin/Tazobactam <=8 S
Tetracycline <=4 S
Tobramycin <=2 S
Trimethoprim/Sulfamethoxazole <=2/38 S
Micro Results:
05/21/24 18:29 Blood Culture - Preliminary
Blood/Venous No Growth in 48 hours- Final report to follow
05/21/24 16:33 Urine Culture - Final
Urine Escherichia coli
--- NOTE | 2024-05-24 10:55 | W.PN.ONC ---
Today's Communication / Plan
-
Continue antibiotics as outlined by ID
Appreciate urology
Hemoglobin stable
PT/OT consult in hospital and resuming home PT with DC
Consider CT Head due to recent history of falls on anticoagulation
Follow-up in the office visit for 06/04
Impression
Impression
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
UTI/prostatitis
Anemia
Plan
Plan
-
Subjective/Objective
Subjective/Objective
Patient without new complaints today.
Vital Signs:
Vital Signs
Temp Pulse Resp BP Pulse Ox
97.6 F 63 17 158/68 96
05/24/24 07:26 05/24/24 07:26 05/24/24 07:26 05/24/24 07:26 05/24/24 07:26
physical exam unchanged
Lab Results:
Laboratory Data
WBC 13.4 10^3/uL (4.8-10.8) H 05/24/24 05:39
Hgb 9.0 g/dL (13.0-18.0) L 05/24/24 05:39
Plt Count 200 10^3/uL (130-400) 05/24/24 05:39
eGFR 34.79 05/24/24 05:39
[2024-05-24 12:03] LABS: Glucose - Point of Care 162 mg/dl (70-99)
--- NOTE | 2024-05-24 12:18 | W.PN.UPDATE ---
Update Note
Progress Note Update
Acute urinary retention
BPH
cUTI
UCx => E. Coli
BCx => NG
05/23: CTAP w/o IV contrast => non-distended bladder w/ Sloan catheter in place, no hydronephrosis bilaterally
s/p cystoscopy 09/2022 - trilobar BPH w/ evidence of bladder outlet obstruction
Bladder outlet surgery discussed/planned, however this was delayed due to new diagnosis of lung cancer and subsequent treatments.
Plan
- Maintain Sloan catheter - voiding trial as outpatient in w/n 1 week
- Continue tamsulosin + finasteride (per prior regimen)
- Continue doxycycline BID x4 week course per ID
- Trend WBC/Cr
- Previously advised TURP - once acute issues have resolved, will revisit as outpatient for surgical planning
--- NOTE | 2024-05-24 12:29 | W.PN.HOSP.TC ---
Today's Communication/Plan
-
Continue antibiotics
Spoke to urology: voiding trial tomorrow as patient did not want cath on discharge, but now saying maybe he will consider keeping the sanchez cath on discharge
PT recommended rehab placement, will need placement
Assessment / Plan
Assessment / Plan
Physical Exam
General: No Apparent Distress and Conversant
HEENT: Normocephalic
Respiratory: Clear
Cardiac: S1/S2 and Regular Rhythm
GI: Soft, Non Tender and Normal Bowel Sounds
Musculoskeletal: No Cyanosis and No Edema
Skin: Warm and Dry
Neuro: Awake, Alert, AO x 3 and Nonfocal/grossly intact
Psych: Calm and Intact Judgment/Insight
Assessment/Plan
#Generalized Weakness in the Setting of Cancer
#Concern for UTI
#History of E. coli UTI
#Probable prostatitis
#Leukocytosis
#Fever with Temperature 100.6 F on 05/22/24 evening
-Based on previous sensitivities, continued patient on Zosyn initially, ID consulted, appreciate their evaluation, Zosyn stopped and Fosfomycin given
-Continue Doxycycline - plan 4 weeks of doxycycline 100 mg PO BID
-Methenamine after Doxycycline course is completed
-Follow urine and blood cultures
-Consulted ID and Oncology, appreciate evaluation and recommendations
-Consulted urology due to urinary retention and need for Sanchez catheter in the setting of probable prostatitis
-Continue Finasteride in addition to the patient's Tamsulosin
-Follow-up with PCP for cbc with diff in 1-2 weeks
#Urinary Retention
-Trial of void tomorrow as per urology
#Hypotension
-Status post Midodrine and IV Fluids
-Patient had asymptomatic low BP 78/38-85'/40's on 05/22/24 evening, Midodrine and IV fluids were ordered with good improvement
-Patient says that he sometimes has hypotension at home with low systolic in the 70s and that transit mix operator Dr. Ferguson has been managing this
-Continue to monitor vital signs
#Concern for KATHARINE
-Cr improved
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
#New-Onset Hypoxia
-Primary oncologist is Dr. Shin
-History of chemotherapy
-No on Keytruda, as per patient
-Follows with Dr. Melgar outpatient -- consulted pulmonary
-Will need home oxygen assessment test prior to discharge
#Anemia secondary to chemotherapy and some heme dilution
-hgb 8.7 on admission -- remains -- stable; better than 7.8 in February 2024
#Chronic diastolic congestive heart failure
-Follow I/O, daily weights
-Continue torsemide 20 mg Tuesday
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
#KATHARINE remains a known or suspected condition for this patient and is further supported by urinary retention
-Per previous reports, baseline Cr 1.7
-Creatinine this admission 2.1-->1.9-->1.8
-Follow BMP, avoid nephrotoxic agents as much as possible
#Diabetes mellitus type 2
-Insulin Sliding Scale and Accuchecks
#RBBB
#Sinus bradycardia
#History of profound bradycardia on metoprolol which was DC'd in December
#CAD s/p CABG KINCAID-LAD 04/2015. PCI LM and LCX 06/2015
# 09/2022 post cath with patent KINCAID to LAD and stent and no new obstructive CAD.
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
-Continue Eliquis 2.5 mg twice daily, Plavix 75 mg daily
#Paroxysmal AFib
-Continue amiodarone 20 mg daily, Eliquis 2.5 mg twice daily
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
#Former smoker
#Hypercholesterolemia
-Continue Crestor
#BPH
-Continue Flomax 0.4 mg twice daily
DVT PPx: Eliquis
Code Status: Full code
Anticipated Discharge: Within 24 hours
Subjective/Interval History
-
Date of Service: May 24, 2024
Patient was seen and examined. He reported no new significant symptoms or complaints.
Objective Data
-
Labs:
Laboratory Results
05/24/24
05:39
WBC 13.4 H
Hgb 9.0 L
Hct 28.9 L
Plt Count 200
Sodium 139
Potassium 4.0
Chloride 101
Carbon Dioxide 26
BUN 30 H
Creatinine 1.9 H
Glucose 74
Calcium 8.5
Total Bilirubin 0.5
AST 14 L
ALT < 10
Alkaline Phosphatase 68
Vital Signs:
Vital Signs
Temp Pulse Resp BP Pulse Ox
97.6 F 63 17 158/68 96
05/24/24 07:26 05/24/24 07:26 05/24/24 07:26 05/24/24 07:26 05/24/24 07:26
I&O
05/23/24 05/24/24 05/25/24
06:59 06:59 06:59
Intake Total 1510 / 1510 1080 / 1080
Output Total 575 / 575 1065 / 1065
Balance 935 / 935
[2024-05-24 15:23] VITALS: BP 113/55
--- NOTE | 2024-05-24 15:57 | CM ---
assurance manager insurance following for discharge planning
Chart reviewed. Met with pt
Pt declining HH when offered - prefers outpatient PT
Currently on oxygen - was RA prior to admission - will need home oxygen assessment
Discussed possibility of home O2 - has no preference to agency if needed
Reports will have ride home with family when d/c'ed to home
Plan - home no needs, watch for home O2 needs
[2024-05-24 16:56] VITALS: BP 106/56; BP 127/55; BP 80/40; PULSE 63; O2SAT 96
[2024-05-24 17:34] LABS: Glucose - Point of Care 75 mg/dl (70-99)
[2024-05-24] MEDS: CRESTOR 40 MG PO (20:16)
[2024-05-24] MEDS: TRIAMCINOLONE 0.1% OINTMENT 1 APPLIC TOPICAL (20:17)
[2024-05-24 21:31] LABS: Glucose - Point of Care 114 mg/dl (70-99)
[2024-05-24] MEDS: PACERONE 200 MG PO (22:25)
[2024-05-24 23:07] VITALS: BP 103/53
[2024-05-25] MEDS: TYLENOL 650 MG PO ×2 (00:54→09:37)
[2024-05-25 04:57] LABS: Hematocrit 27.4 % (39.0-52.0); Hemoglobin 8.9 g/dL (13.0-18.0); Mean Corp Hgb Conc. 32.5 g/dL (33.0-37.0); Mean Corpuscular Hgb 30.8 pg (27.0-31.0); Mean Corpuscular Volume 94.8 fL (80.0-94.0); Mean Platelet Volume 8.9 fL (7.4-10.4); Platelet Count 197 10^3/uL (130-400); Red Blood Cell Count 2.89 10^6/uL (4.70-6.10); Red Cell Dist. Width 17.4 % (11.5-14.5); White Blood Cell Count 15.5 10^3/uL (4.8-10.8)
[2024-05-25 05:00] LABS: ALT (SGPT) < 10 U/L (0-50); AST (SGOT) 15 U/L (17-59); Albumin 3.2 g/dl (3.5-5.0); Alkaline Phosphatase 71 U/L (38-126); Blood Urea Nitrogen 34 mg/dl (9-20); Calcium 8.7 mg/dl (8.4-10.2); Carbon Dioxide 28 mmol/L (22-30); Chloride 100 mmol/L (98-107); Estimated Creatinine Clearance 30 ml/min; Glucose 95 mg/dl (70-99); Potassium 3.9 mmol/L (3.5-5.1); Sodium 138 mmol/L (135-145); Total Bilirubin 0.4 mg/dl (0.2-1.3); Total Protein 6.9 g/dl (6.3-8.2); eGFR 32.71
[2024-05-25 06:00] VITALS: BMI 28.2
[2024-05-25 06:26] LABS: % Basophils 0.3 % (0-2); % Eosinophils 35.5 % (0-6); % Immature Granulocytes 0.5 % (0-0.5); % Lymphocytes 7.6 % (20.5-51.1); % Monocytes 9.6 % (1.7-9.3); % Neutrophils 46.5 % (42.2-75.2); Absolute Basophils 0.1 10^3/uL (0-0.2); Absolute Eosinophils 5.5 10^3/uL (0-0.7); Absolute Immature Granulocytes 0.1 10^3/uL (0-0.05); Absolute Lymphocytes 1.2 10^3/uL (1.2-3.4); Absolute Monocytes 1.5 10^3/uL (0.1-0.6); Absolute Neutrophils 7.2 10^3/uL (1.4-6.5); Nucleated Red Blood Cells % 0 % (-)
[2024-05-25 07:20] VITALS: BP 157/63
[2024-05-25 07:25] LABS: Glucose - Point of Care 85 mg/dl (70-99)
--- NOTE | 2024-05-25 07:42 | PN.DE.MGMTRT ---
Insulin Management
- -
05/25/2024: Diabetes Management F/U:
Patient admitted with progressive weakness, falls and UTI secondary to E.Coli. 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
Pt was taking Lantus 10 units @ 1900 and Glipizide 5mg BID. Pt states that he has not been taking his diabetes meds consistently due to episodes of low blood sugars. Reports that his blood sugar has been in range of 70-100's, mostly 80's, so he
stopped taking the insulin 2 weeks ago but continued taking the Glipizide as needed. states he has a working meter- [employer] at home with enough supplies.
Last A1C was 7.1% on 03/10/24. Cr 2.1-->1.9(baseline 1.7), eGFR 34.79.
Pt awake, A/O x3, resting in bed, offers no complaints and is able to discuss diabetes mgt.
Diet changed to carb controlled low cholesterol 05/22.
05/23 Lantus 10 units changed to AM dosing, reduced dose of glipizide 2.5 mg BID to started with breakfast.
05/24 Fasting glucose 74, dinner dose of glipizide was stopped, Lantus 10 units continued in AM with glipizide 2.5 mg in AM.
05/25 FBG 95, premeal range was 75 to 162. Will make no changes to current regimen.
Will follow for further needed adjustments.
Diabetes History
- -
Type of Diabetes: 2 requiring insulin
Pre-Admission Diabetes Regimen
05/25/24
04:14
Creatinine 2.0 H
Lab Results
Hemoglobin A1c 6.5 % (4.0-5.6) H 05/22/24 12:53
Insulin Pump Settings
IP Diabetes Regimen
08/05/24/24 05/24/24
12:02 17:33 21:26
Glucose
POC Glucose 162 H 75 114 H
05/25/24 05/25/24
04:14 07:23
Glucose 95
POC Glucose 85
Meal type: Lunch
Meal type: Breakfast
Amount consumed: 100%
Amount consumed: 100%
Patient Education
[2024-05-25] MEDS: FLOMAX 0.4 MG PO ×2 (08:14→20:23)
[2024-05-25] MEDS: PROSCAR 5 MG PO (08:15)
[2024-05-25] MEDS: PLAVIX 75 MG PO (08:15)
[2024-05-25] MEDS: ELIQUIS 2.5 MG PO ×2 (08:15→20:23)
[2024-05-25] MEDS: VIBRAMYCIN 100 MG PO ×2 (08:15→20:23)
[2024-05-25] MEDS: GLUCOTROL XL (EXTENDED RELEASE) 2.5 MG PO (08:15)
[2024-05-25] MEDS: DEMADEX 20 MG PO (08:17)
[2024-05-25] MEDS: LANTUS 0.1 UNITS SC (08:17)
[2024-05-25] MEDS: NOVOLOG FLEXPEN-LOW RESISTANCE SC (08:18)
--- NOTE | 2024-05-25 09:30 | W.PN.ONC2 ---
Documented by User: Elvis Aj DO, Resident 05/25/24 11:19
Today's Communication / Plan
-
No change in recommendations- awaiting final inputs from other services
Continue antibiotics as outlined by ID
Appreciate urology inputs
Hemoglobin stable- 8.9 today
PT/OT consult in hospital and resuming home PT with DC
Consider CT Head due to recent history of falls on anticoagulation
Follow-up in the office visit for 06/04
Impression
Impression
Squamous Cell LC of the MICHEAL s/p SBRT, currently on Keytruda
UTI/prostatitis
Anemia
Plan
Plan
-
Subjective/Objective
Chief Complaint
Oncology Follow up
Subjective
Vital Signs:
Vital Signs
Temp Pulse Resp BP Pulse Ox
97.8 F 64 17 157/63 94
05/25/24 07:20 05/25/24 08:17 05/25/24 07:20 05/25/24 08:17 05/25/24 08:35
Lab Results:
Laboratory Data
WBC 15.5 10^3/uL (4.8-10.8) H 05/25/24 04:14
Hgb 8.9 g/dL (13.0-18.0) L 05/25/24 04:14
Plt Count 197 10^3/uL (130-400) 05/25/24 04:14
eGFR 32.71 05/25/24 04:14

Documented by User: Sekou Tubbs MD 05/25/24 13:17
Plan
Plan
-
Hematology/ Oncology Addendum:
Patient evaluated and agree w/ resident note and plan as outline
-w/ persistent eosinophilia - Eos now continuing to rise - ID concerned about eosinophilic process
-reviewed eosinophil count over past 6 months - was elevated at time of immunotherapy induced pneumonitis in November - as high as 16,000 - dropping to normal w/ steroid therapy - now rising again 5100
-no signs of pneumonitis on recent CXR
-unclear if eosinophilia is related to immunotherapy - as IO can cause Eos to rise and keytruda just re-initiated 05/14
-discussed potential role for trial of short course of steroid dosing as ID concern about potential IO toxicity
-will continue to follow CBC
[2024-05-25 10:40] VITALS: BP 107/41; BP 79/52; BP 89/49; PULSE 66; PULSE 75; O2SAT 94
--- NOTE | 2024-05-25 11:05 | W.PN.ID1 ---
Date of Service
Date of Service: May 25, 2024
Today's Communication
Recurrent Hypereosinophilia
- continues with hypereosinophilia has progressed above 5
- with exception of torsemide he was on the same medications as his b admission at admission here
- doxycycline and finasteride were added this admission after the eosinophilia started two months ago
- oct 2023 had hypereosinophilia and pneumonitis, pneumonitis was attributed to keytruda, could also have been due to eosinophilia from my perspective
- CXR, troponin, peripheral smear today
- lfts remain normal
- asked hematology to comment on further workup vs starting prednisone today
Assessment / Plan
Recurrent Hypereosinophilia
- continues with hypereosinophilia has progressed above 5
- with exception of torsemide he was on the same medications as his b admission at admission here
- doxycycline and finasteride were added this admission after the eosinophilia started two months ago
- oct 2023 had hypereosinophilia and pneumonitis, pneumonitis was attributed to keytruda, could also have been due to eosinophilia from my perspective
- reviewed with Dr Blackburn - ok to stop amiodarone given eosinophilia
- CXR, troponin, peripheral smear today (taiwo diff)
- lfts remain normal
- asked hematology to comment on further workup vs starting prednisone today - ok to start steroids and no bone marrow biopsy planned
- will start pred 40 mg; he has previously been steroid responsive
- continue to trend eos, if responding then can plan to taper by 10 mg q7 days until finished
- outpatient chart review showed relapse of eosinophils prior to the restart of keytruda per Dr Tubbs
- follow up with oncology
Probable Prostatitis due to E coli
- plan 4 weeks of doxycycline 100 mg PO BID
- fine for methenamine post the doxycycline
- on flomax, finasteride
- agree with sanchez, management per urology
Diarrhea
- mixed of liquid and formed
- no fevers, abdominal pain or blood in the stool, most likely antibiotic associated
- primary team plans axr
Chief Complaint
-: UTI (Prostatitis - chronic)
Subjective / Review of Systems
afebrile
now on room air down from 2L
RNs reported loose stools, patient reports watery diarrhea - discussed with tech who clarified it was about 50/50
no abdominal pain
has been having regular BMs, doubt its overflow incontinence
Vital Signs / Physical Exam
Vital Signs
Vital Signs
Temp Pulse Resp BP Pulse Ox
97.8 F 64 17 157/63 94
05/25/24 07:20 05/25/24 08:17 05/25/24 07:20 05/25/24 08:17 05/25/24 08:35
Physical Exam
Constitutional: No Acute Distress
Cardiovascular: Regular Rate and S1/S2; Negative Murmur or Rub
Pulmonary: Clear and Symmetric; Negative Wheezes or Rales
Gastrointestinal: Soft, Non Tender, Non Distended and Normal Bowel Sounds
Skin: Warm and Dry; Negative Rash or Jaundice
Objective Data
Lab Data
Lab Results
05/25/24 04:14
05/25/24 04:14
Estimated Creat Clear 30 ml/min 05/25/24 04:14
Total Bilirubin 0.4 mg/dl (0.2-1.3) 05/25/24 04:14
AST 15 U/L (17-59) L 05/25/24 04:14
ALT < 10 U/L (0-50) 05/25/24 04:14
Alkaline Phosphatase 71 U/L (38-126) 05/25/24 04:14
Most recent labs reviewed.
Micro Results:
05/21/24 18:29 Blood Culture - Preliminary
Blood/Venous No Growth in 72 hours- Final report to follow
05/21/24 16:33 Urine Culture - Final
Urine Escherichia coli
Care Review
Plan reviewed with: Physician (Dr Tubbs and Dr Clarke - hypereosinophilia)
--- NOTE | 2024-05-25 11:22 | CM ---
Addendum entered by Annabella Quinonez 05/25/24 15:01:
[facility] - no beds
Original Note:
Case management following for discharge planning
PT recs SNF. Discussed with pt. Requesting referrals be sent to [facility] and [facility]
Referrals sent via [facility]
Plan - snf when medically ready - tbd
[2024-05-25 11:34] LABS: Band Neutrophils 1 % (0-3); Eosinophils 37 % (0-6); Lymphocytes 5 % (20-51); Monocytes 6 % (2-9); Platelets Checked Yes; Segmented Neutrophils 51 % (42-75)
[2024-05-25 11:35] LABS: Anisocytosis 1+; Hypochromasia Slight; Normal RBC Morphology No; Total Cells Counted 100
--- NOTE | 2024-05-25 12:17 | W.PN.HOSP.TC ---
Today's Communication/Plan
-
Eosinophilia worsening, appreciate Infectious Disease's help, Amiodarone stopped and prednisone started
Abdominal X-Ray to check stool burden
Diarrhea reported: a relatively small amount of IV fluids today, check stool studies
Appreciate ID, Oncology and Cardiology
Assessment / Plan
Assessment / Plan
Physical Exam
General: No Apparent Distress and Conversant
HEENT: Normocephalic
Respiratory: Clear
Cardiac: S1/S2 and Regular Rhythm
GI: Soft, Non Tender and Normal Bowel Sounds
Musculoskeletal: No Cyanosis and No Edema
Skin: Warm and Dry
Neuro: Awake, Alert, AO x 3 and Nonfocal/grossly intact
Psych: Calm and Intact Judgment/Insight
Assessment/Plan
#Generalized Weakness in the Setting of Cancer
#Concern for UTI
#History of E. coli UTI
#Probable prostatitis
#Leukocytosis
#Fever with Temperature 100.6 F on 05/22/24 evening
-Based on previous sensitivities, continued patient on Zosyn initially, ID consulted, appreciate their evaluation, Zosyn stopped and Fosfomycin given
-Continue Doxycycline - plan 4 weeks of doxycycline 100 mg PO BID
-Methenamine after Doxycycline course is completed
-Follow urine and blood cultures
-Consulted ID and Oncology, appreciate evaluation and recommendations
-Consulted urology due to urinary retention and need for Sloan catheter in the setting of probable prostatitis
-Continue Finasteride in addition to the patient's Tamsulosin
-Follow-up with PCP for cbc with diff in 1-2 weeks
#Recurrent Hypereosinophilia
- hypereosinophilia is persistent and getting worse
- ID spoke with cardiology and Amiodarone has been stopped. Additional unneeded medications stopped as well.
- Hematology on board
- Appreciate ID discussion with hematology
- Steroids/prednisone as per hematology
#Diarrhea
-Normal Saline IV fluids (total 250 cc for now, given CHF history)
-Check stool studies, C. diff
-Possibly antibiotic-associated diarrhea
-Check abdominal x-ray for stool burden in case this is overflow diarrhea
#Urinary Retention
-Patient okay with keeping the Sloan Catheter for now
-Continue Sloan Catheter
#Hypotension
-Status post Midodrine and IV Fluids
-Patient had asymptomatic low BP 78/38-85'/40's on 05/22/24 evening, Midodrine and IV fluids were ordered with good improvement
-Patient says that he sometimes has hypotension at home with low systolic in the 70s and that material lister Dr. Ferguson has been managing this
-Continue to monitor vital signs
-Consulted cardiology for this as well as per patient request
#Concern for KATHARINE
-Monitor BMP
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
#New-Onset Hypoxia
-Primary oncologist is Dr. Shin
-History of chemotherapy
-No on Keytruda, as per patient
-Follows with Dr. Melgar outpatient -- consulted pulmonary
-Will need home oxygen assessment test prior to discharge
#Anemia secondary to chemotherapy and some heme dilution
-hgb 8.7 on admission -- remains -- stable; better than 7.8 in February 2024
#Chronic diastolic congestive heart failure
-Follow I/O, daily weights
-Continue torsemide 20 mg Tuesday
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
#KATHARINE remains a known or suspected condition for this patient and is further supported by urinary retention
-Per previous reports, baseline Cr 1.7
-Creatinine this admission 2.1-->1.9-->1.8-->1.9-->2.0
-Follow BMP, avoid nephrotoxic agents as much as possible
#Diabetes mellitus type 2
-Insulin Sliding Scale and Accuchecks
#RBBB
#Sinus bradycardia
#History of profound bradycardia on metoprolol which was DC'd in December
#CAD s/p CABG KINCAID-LAD 04/2015. PCI LM and LCX 06/2015
# 09/2022 post cath with patent KINCAID to LAD and stent and no new obstructive CAD.
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
-Continue Eliquis 2.5 mg twice daily, Plavix 75 mg daily
#Paroxysmal AFib
-Continue Eliquis 2.5 mg twice daily
-Amiodarone being stopped in the setting of eosinophilia
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
#Former smoker
#Hypercholesterolemia
-Continue Crestor
#BPH
-Continue Flomax 0.4 mg twice daily
DVT PPx: Eliquis
Code Status: Full code
Anticipated Discharge: > 48 hours
Subjective/Interval History
-
Date of Service: May 25, 2024
Patient was seen and examined. He reported continued diarrhea for at least the past couple of days, and also has been feeling more weak since being admitted.
Objective Data
-
Labs:
Laboratory Results
05/25/24
04:14
WBC 15.5 H
Hgb 8.9 L
Hct 27.4 L
Plt Count 197
Sodium 138
Potassium 3.9
Chloride 100
Carbon Dioxide 28
BUN 34 H
Creatinine 2.0 H
Glucose 95
Calcium 8.7
Total Bilirubin 0.4
AST 15 L
ALT < 10
Alkaline Phosphatase 71
Vital Signs:
Vital Signs
Temp Pulse Resp BP Pulse Ox
97.8 F 64 17 157/63 94
05/25/24 07:20 05/25/24 08:17 05/25/24 07:20 05/25/24 08:17 05/25/24 08:35
I&O
05/24/24 05/25/24 05/26/24
06:59 06:59 06:59
Intake Total 1080 / 1080 630 / 630
Output Total 1065 / 1065 1360 / 1360
Balance -730 / -730
[2024-05-25 12:37] LABS: Glucose - Point of Care 193 mg/dl (70-99)
[2024-05-25] MEDS: DELTASONE 40 MG PO (12:41)
[2024-05-25] MEDS: NOVOLOG FLEXPEN-LOW RESISTANCE 1 UNITS SC ×2 (12:42→17:14)
[2024-05-25] MEDS: NSS 1000 IV (13:02)
--- NOTE | 2024-05-25 13:08 | CON.CAR ---
Addendum entered and electronically signed by Renato Blackburn MD 05/25/24 17:35:
I saw and examined the patient.
The Marketing Ambassador's note was reviewed and I agree with the note.
Comment: Briefly, 83-year-old man past medical history of multivessel CAD, heart failure preserved ejection fraction and paroxysmal atrial fibrillation on Eliquis as well as lung CA undergoing active treatment who presents with UTI
He has been maintained on amiodarone for atrial fibrillation, currently maintaining sinus rhythm
Okay to stop amiodarone from my standpoint, ID is concerned about it causing hypereosinophilia
Continue Eliquis for cardioembolic prophylaxis of A-fib
Patient reports that he has been having issues with orthostasis
Appears dry on exam, weight is lowest on record and his prior peripheral edema has resolved
Plan to decrease his torsemide from 5 days a week to 3 days a week�he prefers Tuesday//Tuesday dosing
Rest per [place] Givens
Original Note:
Consultation
Consultation Request
Date/Time Consultation Requested: 05/25/24, 1245
Date/Time Consultation Performed: 05/25/24, 1315
Requesting Provider: Jong Clarke MD
Performing Provider: VJ Bailey for Renato Ferguson MD
Reason for Consultation: orthostatic hypotension, history of heart failure
Medical History
-
Chief Complaint: fatigue and weakness
History of Present Illness:
HPI:
Gonzalez is an 83 year old male with PMH of chronic HFpEF, paroxysmal atrial fibrillation (on Eliquis and Amiodarone), CAD s/p PCI and prior CABG, lung cancer currently on Keytruda, COPD, PVD, AAA, CKD, HTN, HLD, KIM, and DM2 who presented to [facility]
05/[facility]24 for fatigue and weakness, starting 48 hours prior to admission. He had low-grade temperatures and urine and blood cultures were performed. He is being treated for E. coli UTI. Blood cultures are pending. He has been consulted by ID and
oncology. There is concern for recurrent hypereosinophilia and and we were asked if Amiodarone could be stopped-med stopped earlier today. Over the course of his hospitalization he has had episodes of of hypotension requiring IV fluids and
midodrine. His blood pressure was orthostatic this morning with physical therapy, dropping to 79/52 with sitting. Baseline blood pressure was 107/41. He is currently getting IV fluids. He tells me he has had 2 falls in February and 2 falls last
week. He denies syncope. He reports feeling a sensation of warmth going up the back of his neck and the strength draining from his body prior to the falls. A Head CT was done on 05/24/2024, due to concern of h/o falls on anticoagulation and
showed moderate changes of cortical atrophy, stable from prior.
We are consulted to see him due to his history of heart failure preserved EF and orthostatic hypotension.
He was seen by Dr. Ferguson 3 weeks ago and was noted to be 10 pounds above his dry weight with worsening dyspnea and lower extremity edema. He had been on torsemide 3 days a week and it was increased to 5 days a week. The patient reports the
increase in Torsemide improved his HUERTA and lower extremity edema.
In review of his records his baseline creatinine is 1.4-1.6. Creatinine on admission was 2.1 and has trended between 1.8 and 2.1.
A chest x-ray today 05/25/24 showed progressive left lung findings concerning for pneumonia.
He denies chest pain, shortness of breath, edema, palpitations, lightheadedness, syncope. He has had no PND orthopnea.
Complaining of diarrhea.
PMH:
Chronic HFpEF
Paroxysmal atrial fibrillation-on Eliquis and amiodarone
CAD
urgent CABGx1 KINCAID-LAD (VF/VT arrest) 04/2015
PCI LM and LCx 06/2015
s/p cath with patent KINCAID-LAD and stents, non new occlusive disease 10/22/22
Non-small cell lung cancer s/p radiation 11/2022 currently on Carbo/Taxol, Pembrolizumab
h/o VT/VF arrest in 2014 in the setting of left main stenosis
COPD/Emphysema
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
CEA B/L 2019
AAA 3.2cm
CKD 3a
HTN
HLD
KIM
RBBB
DM2
Former smoker
Past Medical History
Past Medical History: Other (In HPI)
Past Surgical History: Cardiac (PCI of LM and LCx 06/2015, CABG x1 04/2015), Cholecystectomy and Other ( vein stripping, b/l CEA, lung biopsy, fem bypass and TOOL PROCUREMENT COORDINATOR of F 2016)
Social History
Tobacco: Former Smoker
Alcohol: None
Drug: None
Personal:
Living: With Family
Employment: Retired
Family History
Family History: CAD
Allergies / Home Medications
Allergy/AdvReac Type Severity Reaction Status Date / Time
ZACHARY Inhibitors Allergy Shortness Verified 05/21/24 13:12
of
Breath-possible
angioedema-pharm
to review
Cephalosporins Allergy Eosinophili Verified 05/21/24 13:12
a
Iodinated Contrast Media Allergy affected Verified 05/21/24 13:12
[Iodinated Contrast Media - kidneys
Oral and]
sulfamethoxazole Allergy Rash Verified 05/21/24 13:12
[From Bactrim]
trimethoprim [From Bactrim] Allergy Rash Verified 05/21/24 13:12
�Medication �Instructions �Recorded �Confirmed �Type
rosuvastatin 40 mg tablet (Crestor) 40 mg PO HS High cholesterol 01/22/19 05/21/24 History
tamsulosin 0.4 mg capsule 0.4 mg PO BID Urinary issue 07/15/22 05/21/24 History
azelastine 137 mcg (0.1 %) nasal 1 spray intranasal BIDPRN PRN 09/14/23 05/21/24 History
spray congestion
apixaban 2.5 mg tablet (Eliquis) 2.5 mg PO BID #60 tabs 12/03/23 05/21/24 Rx
Lactobacillus-Bifidobacterium 30 1 cap PO DAILY Gastrointestinal 01/05/24 05/21/24 History
billion cell capsule,delayed Issue
release (Ultimate Mena Probiotic)
amiodarone 200 mg tablet (Pacerone) 200 mg PO HS Arrhythmia 01/05/24 05/21/24 History
cholecalciferol (vitamin D3) 50 100 mcg PO HS Supplement 01/05/24 05/21/24 History
mcg (2,000 unit) chewable tablet
clopidogrel 75 mg tablet 75 mg PO DAILY Blood Clot 01/05/24 05/21/24 History
Prevention/Tx
dextromethorphan-guaifenesin 30 1 tab PO [id number] PRN congestion ##0 01/05/24 05/21/24 History
mg-600 mg tablet extended
deodkdo03 hr (Mucinex DM)
psyllium 1 packet PO HS constipation 01/05/24 05/21/24 History
insulin glargine 100 unit/mL (3 10 unit SC DAILY@1900 Diabetes 03/09/24 05/21/24 History
mL) subcutaneous pen (Lantus
Solostar U-100 Insulin)
torsemide 20 mg tablet 20 mg PO SUTUWETHFR Fluid 03/09/24 05/21/24 History
Retention/Swelling
acetaminophen 325 mg tablet 650 mg PO Q6HPRN PRN mild pain 05/21/24 05/21/24 History
(Tylenol)
ammonium lactate 12 % lotion 1 applic topical DAILYPRN PRN dry 05/21/24 05/21/24 History
skin on legs
triamcinolone acetonide 0.1 % 1 applic topical BIDPRN PRN rash 05/21/24 05/21/24 History
topical ointment on buttocks
glipizide 2.5 mg tablet 2.5 mg PO DAILY #30 tabs 05/24/24 Rx
Review of Systems
-
History Source: Patient
All other systems: Negative unless noted
Physical Exam
Vital Signs
Temp Pulse Resp BP Pulse Ox
97.8 F 64 17 157/63 94
05/25/24 07:20 05/25/24 08:17 05/25/24 07:20 05/25/24 08:17 05/25/24 08:35
GEN: No distress, awake, Ox3
HEENT: supple, anicteric, mmm
LUNGS: CTA, no wheezes/rales
CV: Reg, S1/S2, 1/6 syst LSB, no murmur
ABD: soft, BS+, NT/ND
EXT: No edema, + venous stasis
NEURO: Gross non-focal
SKIN: No rash
Lab Results
05/25/24 04:14
05/25/24 04:14
Troponin I 0.031 ng/ml 05/21/24 14:01
Impression / Plan
-
PCP: Dr. Villa
Supervising Nurse: Dr. Blackburn
Impression:
fatigue and weakness
HFpEF
Orthostatic hypotension
Paroxysmal atrial fibrillation
ecoli UTI
hypereosinophilia
abnormal CXR 05/25/24
Chronic Eliquis anticoagulation
CAD
urgent CABGx1 KINCAID-LAD (VF/VT arrest) 04/2015
PCI LM and LCx 06/2015
s/p cath with patent KINCAID-LAD and stents, non new occlusive disease 10/22/22
Non-small cell lung cancer s/p radiation 11/2022 currently on Carbo/Taxol, Pembrolizumab
h/o VT/VF arrest in 2014 in the setting of left main stenosis
COPD/Emphysema
PVD - fem bypass and TOOL PROCUREMENT COORDINATOR [facility] 2016
CEA B/L 2018
AAA 3.2cm
CKD 3a
HTN
HLD
KIM
RBBB
DM2
Former smoker
Echo 10/22/2022�EF 65 to 70%.� Mild MR.� Aortic valve gradients 20/8 mmHg peak/mean consistent with mild aortic valve stenosis.� Trace TR with PA pressure 30 to 35 mmHg
Echo 11/28/2023: EF 50-55%, akinesis of the basal inferior wall, mild w/ peak/mean gradients 19/10 mmHg
Plan:
-HFpEF- appears euvolemic on exam. wts stable/trending down (201.8 today, in outpatient setting dry weight ~205lbs) Given his orthostasis, would consider reducing torsemide frequency, and closely monitoring his volume status. Creatinine remains
above his baseline but is stable.
Recent echo 11/28/2023 as noted above with preserved EF and mild . No need to repeat at this time. Has had angioedema on ZACHARY inhibitors in the past.
Afib - He has had no symptoms of recurrent atrial fibrillation. Would check twelve-lead EKG- I ordered - and start telemetry monitoring-I ordered, given that he was asymptomatic with A-fib in the past, and since amiodarone has been stopped due to
eosinophilia. Continue renal dosing Eliquis. Hemoglobin in stable range. May be a candidate for a Watchman device given his frequent falls.
History of CAD�he's had no anginal symptoms. Continues on Plavix and high intensity rosuvastatin. Check 12 lead EKG.
Hypereosinophilia�being followed by ID and oncology. Amiodarone stopped today.
UTI being treated with doxycycline and followed by urology. Sloan in place with plan for outpatient voiding trial.
abnormal CXR 05/25/24 - pt denies SOB, has occ dry cough, afebrile - defer to primary team
[2024-05-25 13:48] LABS: Troponin I 0.031 ng/ml
[2024-05-25 15:17] VITALS: BP 121/56
[2024-05-25 16:46] VITALS: BP 118/57; BP 139/61; BP 144/59; BP 91/48; PULSE 68; PULSE 72; PULSE 80; O2SAT 93
[2024-05-25 16:54] LABS: Glucose - Point of Care 189 mg/dl (70-99)
[2024-05-25 21:36] LABS: Glucose - Point of Care 304 mg/dl (70-99)
[2024-05-25] MEDS: CRESTOR 40 MG PO (22:46)
[2024-05-25 23:16] VITALS: BP 154/70
[2024-05-26] MEDS: TYLENOL 650 MG PO ×2 (00:31→22:43)
[2024-05-26 06:00] VITALS: BMI 27.8
[2024-05-26 06:03] LABS: % Basophils 0.4 % (0-2); % Eosinophils 1.9 % (0-6); % Immature Granulocytes 0.7 % (0-0.5); % Lymphocytes 13.1 % (20.5-51.1); % Monocytes 8.8 % (1.7-9.3); % Neutrophils 75.1 % (42.2-75.2); Absolute Eosinophils 0.2 10^3/uL (0-0.7); Absolute Immature Granulocytes 0.1 10^3/uL (0-0.05); Absolute Lymphocytes 1.4 10^3/uL (1.2-3.4); Absolute Monocytes 0.9 10^3/uL (0.1-0.6); Absolute Neutrophils 7.8 10^3/uL (1.4-6.5); Hematocrit 28.9 % (39.0-52.0); Hemoglobin 9.3 g/dL (13.0-18.0); Mean Corp Hgb Conc. 32.2 g/dL (33.0-37.0); Mean Corpuscular Hgb 29.4 pg (27.0-31.0); Mean Corpuscular Volume 91.5 fL (80.0-94.0); Mean Platelet Volume 9.2 fL (7.4-10.4); Nucleated Red Blood Cells % 0 % (-); Platelet Count 225 10^3/uL (130-400); Red Blood Cell Count 3.16 10^6/uL (4.70-6.10); Red Cell Dist. Width 17.1 % (11.5-14.5); White Blood Cell Count 10.4 10^3/uL (4.8-10.8)
[2024-05-26 06:25] LABS: ALT (SGPT) < 10 U/L (0-50); AST (SGOT) 15 U/L (17-59); Albumin 3.3 g/dl (3.5-5.0); Alkaline Phosphatase 75 U/L (38-126); Blood Urea Nitrogen 38 mg/dl (9-20); Calcium 9.1 mg/dl (8.4-10.2); Carbon Dioxide 27 mmol/L (22-30); Chloride 102 mmol/L (98-107); Estimated Creatinine Clearance 32 ml/min; Glucose 154 mg/dl (70-99); Potassium 4.3 mmol/L (3.5-5.1); Sodium 141 mmol/L (135-145); Total Bilirubin 0.4 mg/dl (0.2-1.3); Total Protein 7.4 g/dl (6.3-8.2); eGFR 34.79
[2024-05-26 07:15] LABS: Glucose - Point of Care 147 mg/dl (70-99)
[2024-05-26] MEDS: NOVOLOG FLEXPEN-LOW RESISTANCE SC (07:53)
[2024-05-26 08:00] VITALS: BP 101/66
[2024-05-26] MEDS: LANTUS 0.1 UNITS SC (08:24)
[2024-05-26] MEDS: PLAVIX 75 MG PO (08:25)
[2024-05-26] MEDS: ELIQUIS 2.5 MG PO ×2 (08:25→21:07)
[2024-05-26] MEDS: FLOMAX 0.4 MG PO ×2 (08:25→21:07)
[2024-05-26] MEDS: DELTASONE 40 MG PO (08:25)
[2024-05-26] MEDS: PROSCAR 5 MG PO (08:25)
[2024-05-26] MEDS: VIBRAMYCIN 100 MG PO ×2 (08:25→21:07)
[2024-05-26] MEDS: GLUCOTROL XL (EXTENDED RELEASE) 2.5 MG PO (08:25)
[2024-05-26] MEDS: DEMADEX 20 MG PO (08:27)
[2024-05-26 09:16] VITALS: BP 142/65
[2024-05-26 12:19] LABS: Glucose - Point of Care 267 mg/dl (70-99)
[2024-05-26] MEDS: NOVOLOG FLEXPEN-LOW RESISTANCE 3 UNITS SC (12:28)
--- NOTE | 2024-05-26 13:09 | W.PN.CARDCBS ---
Today's Communication / Plan
-
We have reduced torsemide frequency from 5 days weekly to 3 days weekly.
If SYMPTOMATIC orthostasis continues would reduce dosing of torsemide from 20 mg to 10 mg AND add conservative measures like graduated stockings
Amiodarone has been stopped due to eosinophilia.
Long-term AF management considerations (rate vs rhythm control as well as DOAC vs Watchman) can be further discussed as an outpatient.
Not adding much else from a cardiac standpoint, will sign off. Please call us back if needed.
Impression / Plan
-
PCP: Dr. Villa
Wafer Abrading Machine Tender: Dr. Blackburn
Impression:
fatigue and weakness
HFpEF
Orthostatic hypotension
Paroxysmal atrial fibrillation
ecoli UTI
hypereosinophilia
abnormal CXR 05/25/24
Chronic Eliquis anticoagulation
CAD
urgent CABGx1 KINCAID-LAD (VF/VT arrest) 04/2015
PCI LM and LCx 06/2015
s/p cath with patent KINCAID-LAD and stents, non new occlusive disease 10/22/22
Non-small cell lung cancer s/p radiation 11/2022 currently on Carbo/Taxol, Pembrolizumab
h/o VT/VF arrest in 2014 in the setting of left main stenosis
COPD/Emphysema
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
CEA B/L 2018
AAA 3.2cm
CKD 3a
HTN
HLD
KIM
RBBB
DM2
Former smoker
Echo 10/22/2022�EF 65 to 70%.� Mild MR.� Aortic valve gradients 20/8 mmHg peak/mean consistent with mild aortic valve stenosis.� Trace TR with PA pressure 30 to 35 mmHg
Echo 11/28/2023: EF 50-55%, akinesis of the basal inferior wall, mild w/ peak/mean gradients 19/10 mmHg
Plan:
HFpEF- appears euvolemic on exam. wts stable/trending down (199 today, in outpatient setting dry weight ~205lbs) Given his orthostasis, we have reduced torsemide frequency from 5 days weekly to 3 days weekly. Creatinine stable.
Recent echo 11/28/2023 as noted above with preserved EF and mild . No need to repeat at this time. Has had angioedema on ZACHARY inhibitors in the past.
If SYMPTOMATIC orthostasis continues would reduce dosing of torsemide from 20 mg to 10 mg AND add conservative measures like graduated stockings
Afib - He has had no symptoms of recurrent atrial fibrillation. Amiodarone has been stopped due to eosinophilia. It would not be unexpected for AF to eventually recur at which point rhythm control versus rate control options can be further
explored. AAD Rx options are very limited given CKD, CAD and now intolerance to amiodarone so that reasonable options would be rate control versus PVI/ablation.
- Continue renal dosing Eliquis. Hemoglobin in stable range. May be a candidate for a Watchman device given his frequent falls.
- Long-term AF management considerations (rate vs rhythm control as well as DOAC vs Watchman) can be further discussed as an outpatient.
History of CAD�he's had no anginal symptoms. Continues on Plavix and high intensity rosuvastatin. Check 12 lead EKG.
Hypereosinophilia�being followed by ID and oncology. Amiodarone stopped 05/25/24.
UTI being treated with doxycycline and followed by urology. Sloan in place with plan for outpatient voiding trial.
abnormal CXR 05/25/24 - pt denies SOB, has occ dry cough, afebrile - defer to primary team
Not adding much else from a cardiac standpoint, will sign off. Please call us back if needed.
total time 50 min
Progress Note - Wafer Abrading Machine Tender
Subjective
Date of Service: May 26, 2024
no CP or SOB, dizziness upon standing improved
Objective
Labs:
05/26/24 05:11
05/26/24 05:11
Labs
Hgb 9.3 g/dL (13.0-18.0) L 05/26/24 05:11
Hct 28.9 % (39.0-52.0) L 05/26/24 05:11
Plt Count 225 10^3/uL (130-400) 05/26/24 05:11
Sodium 141 mmol/L (135-145) 05/26/24 05:11
Potassium 4.3 mmol/L (3.5-5.1) 05/26/24 05:11
BUN 38 mg/dl (9-20) H 05/26/24 05:11
Creatinine 1.9 mg/dL (0.7-1.3) H 05/26/24 05:11
Glucose 154 mg/dl (70-99) H 05/26/24 05:11
Troponins
05/25/24
12:59
Troponin I 0.031
Vital Signs and I&O:
Vital Signs
Temp Pulse Resp BP Pulse Ox
97.5 F 67 18 142/65 95
05/26/24 08:00 05/26/24 09:16 05/26/24 08:00 05/26/24 09:16 05/26/24 09:16
Vital Signs
Temp Pulse Resp BP Pulse Ox
97.5 F 67 18 142/65 95
05/26/24 08:00 05/26/24 09:16 05/26/24 08:00 05/26/24 09:16 05/26/24 09:16
Intake & Output
05/24/24 05/25/24 05/26/24 05/27/24
06:59 06:59 06:59 06:59
Intake Total 1080 / 1080 630 / 630 990 / 990
Output Total 1065 / 1065 1360 / 1360 2150 / 2150
Balance 15 15 -730 / -730 -1160 / -1160
Physical Exam
Physical Exam
well appearing, no distress
RRR, Nl S1 and S2, no S3 or S4, no rubs
CTA b/l
Ext with trace pre-tibial edema b/l
Sloan Cath in place
[2024-05-26 15:00] VITALS: BP 169/72
--- NOTE | 2024-05-26 15:18 | W.PN.HOSP.TC ---
Today's Communication/Plan
-
Patient with mucus bowel movements -- consulted GI
Continue Prednisone
Monitor orthostatic hypotension symptoms
Assessment / Plan
Assessment / Plan
Physical Exam
General: No Apparent Distress and Conversant
HEENT: Normocephalic
Respiratory: Clear
Cardiac: S1/S2 and Regular Rhythm
GI: Soft, Non Tender and Normal Bowel Sounds
Musculoskeletal: No Cyanosis and No Edema
Skin: Warm and Dry
Neuro: Awake, Alert, AO x 3 and Nonfocal/grossly intact
Psych: Calm and Intact Judgment/Insight
Assessment/Plan
#Generalized Weakness in the Setting of Cancer
#Concern for UTI
#History of E. coli UTI
#Probable prostatitis
#Leukocytosis
#Fever with Temperature 100.6 F on 05/22/24 evening
-Based on previous sensitivities, continued patient on Zosyn initially, ID consulted, appreciate their evaluation, Zosyn stopped and Fosfomycin given
-Continue Doxycycline - plan 4 weeks of doxycycline 100 mg PO BID
-Methenamine after Doxycycline course is completed
-Follow urine and blood cultures
-Consulted ID and Oncology, appreciate evaluation and recommendations
-Consulted urology due to urinary retention and need for Sloan catheter in the setting of probable prostatitis
-Continue Finasteride in addition to the patient's Tamsulosin
-Follow-up with PCP for cbc with diff in 1-2 weeks
#Recurrent Hypereosinophilia
- hypereosinophilia was persistent and was getting worse but is now getting better
- ID spoke with cardiology and Amiodarone has been stopped. Additional unneeded medications stopped as well.
- Hematology on board
- Appreciate ID discussion with hematology
- Steroids/prednisone as per hematology--> improving with steroids
#Mucus bowel movements, initially reported as diarrhea
-Normal Saline IV fluids (total 250 cc for now, given CHF history) was given
-Check stool studies, C. diff
-Possibly antibiotic-associated diarrhea
-Consulted GI, appreciate evaluation and recommendations given mucus type of bowel movements
#Urinary Retention
-Patient okay with keeping the Sloan Catheter for now
-Continue Sloan Catheter
#History of angioedema on ZACHARY inhibitors
#Hypotension
-Status post Midodrine and IV Fluids
-Patient had asymptomatic low BP 78/38-85'/40's on 05/22/24 evening, Midodrine and IV fluids were ordered with good improvement
-Patient says that he sometimes has hypotension at home with low systolic in the 70s and that senior clinical data coordinator Dr. Ferguson has been managing this
-Continue to monitor vital signs
-Consulted cardiology for this as well as per patient request
-Adjust Torsemide as below if needed
#Concern for KATHARINE
-Monitor BMP
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
#New-Onset Hypoxia
-Primary oncologist is Dr. Shin
-History of chemotherapy
-No on Keytruda, as per patient
-Follows with Dr. Melgar outpatient -- consulted pulmonary
-Will need home oxygen assessment test prior to discharge
-Now on room air
#Anemia secondary to chemotherapy and some heme dilution
-hgb 8.7 on admission -- remains -- stable; better than 7.8 in February 2024
#Chronic diastolic congestive heart failure
-Follow I/O, daily weights
-Patient appears dry as of 05/25/24, weight is lowest on record and his prior peripheral edema has resolved
-Patient's torsemide has been decreased from 5 days a week to 3 days a week�patient prefers Tuesday//Tuesday dosing
-If SYMPTOMATIC orthostasis continues reduce dosing of torsemide from 20 mg to 10 mg AND add conservative measures like graduated stockings, appreciate cardiology
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
#KATHARINE remains a known or suspected condition for this patient and is further supported by urinary retention
-Per previous reports, baseline Cr 1.7
-Creatinine this admission 2.1-->1.9-->1.8-->1.9-->2.0
-Follow BMP, avoid nephrotoxic agents as much as possible
#Diabetes mellitus type 2
-Insulin Sliding Scale and Accuchecks
#RBBB
#Sinus bradycardia
#History of profound bradycardia on metoprolol which was DC'd in December
#CAD s/p CABG KINCAID-LAD 04/2015. PCI LM and LCX 06/2015
# 09/2022 post cath with patent KINCAID to LAD and stent and no new obstructive CAD.
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
-Continue Eliquis 2.5 mg twice daily, Plavix 75 mg daily
#Paroxysmal AFib
-Continue Eliquis 2.5 mg twice daily
-Amiodarone stopped in the setting of eosinophilia, appreciate ID and cardiology
-Per cardiology, long-term AF management considerations (rate vs rhythm control as well as DOAC vs Watchman) can be further discussed as an outpatient.
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
#Former smoker
#Hypercholesterolemia
-Continue Crestor
#BPH
-Continue Flomax 0.4 mg twice daily
DVT PPx: Eliquis
Code Status: Full code
Anticipated Discharge: > 48 hours
Subjective/Interval History
-
Date of Service: May 26, 2024
Patient was seen and examined. He reported mucus from his stools, but was feeling better today.
Objective Data
-
Labs:
Laboratory Results
05/26/24
05:11
WBC 10.4
Hgb 9.3 L
Hct 28.9 L
Plt Count 225
Sodium 141
Potassium 4.3
Chloride 102
Carbon Dioxide 27
BUN 38 H
Creatinine 1.9 H
Glucose 154 H
Calcium 9.1
Total Bilirubin 0.4
AST 15 L
ALT < 10
Alkaline Phosphatase 75
Vital Signs:
Vital Signs
Temp Pulse Resp BP Pulse Ox
97.5 F 67 18 142/65 95
05/26/24 08:00 05/26/24 09:16 05/26/24 08:00 05/26/24 09:16 05/26/24 09:16
I&O
05/25/24 05/26/24 05/27/24
06:59 06:59 06:59
Intake Total 630 / 630 990 / 990
Output Total 1360 / 1360 2150 / 2150
Balance -730 / -730 -1160 / -1160
--- NOTE | 2024-05-26 15:49 | W.PN.ID1 ---
Date of Service
Date of Service: May 26, 2024
Today's Communication
Continue doxy and prednisone taper.
See below.
Assessment / Plan
Recurrent Hypereosinophilia
- continues with hypereosinophilia has progressed above 5
- with exception of torsemide he was on the same medications as his oct admission at admission here
- doxycycline and finasteride were added this admission after the eosinophilia started two months ago
- oct 2023 had hypereosinophilia and pneumonitis, pneumonitis was attributed to keytruda, could also have been due to eosinophilia from my perspective
- reviewed with Dr Blackburn - ok to stop amiodarone given eosinophilia
- CXR Progressed left lung findings
- lfts remain normal
- asked hematology to comment on further workup vs starting prednisone today - ok to start steroids and no bone marrow biopsy planned
- Continue pred 40 mg (d2); he has previously been steroid responsive
Absolute Eosinophila resolved, plan to taper by 10 mg q7 days until finished
- outpatient chart review showed relapse of eosinophils prior to the restart of keytruda per Dr Tubbs
- follow up with oncology
Probable Prostatitis due to E coli
- plan 4 weeks of doxycycline 100 mg PO BID
- fine for methenamine post the doxycycline
- on flomax, finasteride
- agree with sanchez, management per urology
Diarrhea
- mixed of liquid and formed
- no fevers, abdominal pain or blood in the stool, most likely antibiotic associated
- primary team plans axr
Chief Complaint
-: UTI (Prostatitis - chronic)
Subjective / Review of Systems
Has mucousy stool.
Cough better.
Vital Signs / Physical Exam
Vital Signs
Vital Signs
Temp Pulse Resp BP Pulse Ox
97.5 F 67 18 142/65 95
05/26/24 08:00 05/26/24 09:16 05/26/24 08:00 05/26/24 09:16 05/26/24 09:16
Physical Exam
Constitutional: No Acute Distress
Cardiovascular: Regular Rate and S1/S2; Negative Murmur or Rub
Pulmonary: Clear and Symmetric; Negative Wheezes or Rales
Gastrointestinal: Soft, Non Tender, Non Distended and Normal Bowel Sounds
Genito-Urinary: Sanchez and Clear Urine
Neurological: AO x 3
Lines: Port (LCW no erythema)
Objective Data
Lab Data
Lab Results
05/26/24 05:11
05/26/24 05:11
Estimated Creat Clear 32 ml/min 05/26/24 05:11
Total Bilirubin 0.4 mg/dl (0.2-1.3) 05/26/24 05:11
AST 15 U/L (17-59) L 05/26/24 05:11
ALT < 10 U/L (0-50) 05/26/24 05:11
Alkaline Phosphatase 75 U/L (38-126) 05/26/24 05:11
Most recent labs reviewed.
Micro Results:
05/21/24 18:29 Blood Culture - Preliminary
Blood/Venous No Growth in 4 days- Final report to follow
05/21/24 16:33 Urine Culture - Final
Urine Escherichia coli
[2024-05-26 16:58] LABS: Glucose - Point of Care 203 mg/dl (70-99)
[2024-05-26] MEDS: NOVOLOG FLEXPEN-LOW RESISTANCE 2 UNITS SC (17:20)
[2024-05-26] MEDS: TRIAMCINOLONE 0.1% OINTMENT 1 APPLIC TOPICAL (18:05)
[2024-05-26] MEDS: CRESTOR 40 MG PO (21:08)
[2024-05-26 21:10] LABS: Glucose - Point of Care 263 mg/dl (70-99)
[2024-05-26 23:30] VITALS: BP 163/71
[2024-05-27 06:17] LABS: % Basophils 0.4 % (0-2); % Eosinophils 0.9 % (0-6); % Immature Granulocytes 0.6 % (0-0.5); % Lymphocytes 12.3 % (20.5-51.1); % Neutrophils 76.8 % (42.2-75.2); Absolute Basophils 0.1 10^3/uL (0-0.2); Absolute Eosinophils 0.1 10^3/uL (0-0.7); Absolute Immature Granulocytes 0.1 10^3/uL (0-0.05); Absolute Lymphocytes 1.8 10^3/uL (1.2-3.4); Absolute Monocytes 1.3 10^3/uL (0.1-0.6); Hematocrit 28.3 % (39.0-52.0); Hemoglobin 9.2 g/dL (13.0-18.0); Mean Corp Hgb Conc. 32.5 g/dL (33.0-37.0); Mean Corpuscular Hgb 29.8 pg (27.0-31.0); Mean Corpuscular Volume 91.6 fL (80.0-94.0); Mean Platelet Volume 9.1 fL (7.4-10.4); Nucleated Red Blood Cells % 0.1 % (-); Platelet Count 245 10^3/uL (130-400); Red Blood Cell Count 3.09 10^6/uL (4.70-6.10); Red Cell Dist. Width 17.2 % (11.5-14.5); White Blood Cell Count 14.4 10^3/uL (4.8-10.8)
[2024-05-27 06:40] LABS: ALT (SGPT) < 10 U/L (0-50); AST (SGOT) 17 U/L (17-59); Albumin 3.4 g/dl (3.5-5.0); Alkaline Phosphatase 73 U/L (38-126); Blood Urea Nitrogen 42 mg/dl (9-20); Calcium 9.4 mg/dl (8.4-10.2); Carbon Dioxide 30 mmol/L (22-30); Chloride 101 mmol/L (98-107); Estimated Creatinine Clearance 38 ml/min; Glucose 95 mg/dl (70-99); Potassium 4.2 mmol/L (3.5-5.1); Sodium 143 mmol/L (135-145); Total Bilirubin 0.4 mg/dl (0.2-1.3); Total Protein 7.3 g/dl (6.3-8.2); eGFR 42.75
[2024-05-27] MEDS: NOVOLOG FLEXPEN-LOW RESISTANCE SC (07:33)
[2024-05-27] MEDS: DELTASONE 40 MG PO (07:34)
[2024-05-27] MEDS: ELIQUIS 2.5 MG PO ×2 (07:34→21:08)
[2024-05-27] MEDS: FLOMAX 0.4 MG PO ×2 (07:34→21:08)
[2024-05-27] MEDS: LANTUS 0.1 UNITS SC (07:34)
[2024-05-27] MEDS: PLAVIX 75 MG PO (07:34)
[2024-05-27] MEDS: PROSCAR 5 MG PO (07:34)
[2024-05-27] MEDS: GLUCOTROL XL (EXTENDED RELEASE) 2.5 MG PO (07:34)
[2024-05-27] MEDS: VIBRAMYCIN 100 MG PO ×2 (07:34→21:08)
[2024-05-27 08:00] VITALS: BP 156/64
[2024-05-27 08:02] LABS: Glucose - Point of Care 95 mg/dl (70-99)
[2024-05-27] MEDS: TYLENOL 650 MG PO (08:55)
[2024-05-27 11:28] VITALS: BP 161/69
[2024-05-27 12:17] LABS: Glucose - Point of Care 213 mg/dl (70-99)
[2024-05-27] MEDS: NOVOLOG FLEXPEN-LOW RESISTANCE 2 UNITS SC (12:22)
[2024-05-27] MEDS: LAC HYDRIN, AM LACTIN LOTION 1 APPLIC TOPICAL (12:25)
--- NOTE | 2024-05-27 13:07 | CON.GI ---
Consultation
-
Date/Time Consultation Requested: 05/26/2024
Date/Time Consultation Performed: 05/26/2024
Performing Provider: Jose Armando Power
Reason for Consultation: mucus in stool
Medical History
Chief Complaint / HPI
Chief Complaint: mucus in stool
History of Present Illness:
83-year-old male with history of SCC of the lung, chronic diastolic CHF, CKD, DM, CAD s/p CABG, P A-fib, and BPH who presented with weakness several days ago. Since admission, pt is being treated for probable prostatitis from E. coli with 4 week
course of doxycycline. Also noted to recurrent hypereosinophilia, started on prednisone with resolution, on tapering regimen. GI is being consulted for evaluation of mucus in stool. Having 3-4 BMs per day which looks mostly mucousy instead of
stool for past few days. Denies blood. Denies abdominal pain.
Past Medical History
Past Medical History: CAD, CHF, HTN and Other
Past Surgical History: Other
Social History
Tobacco: Non-Smoker
Alcohol: None
Allergies / Home Medications
Allergy/AdvReac Type Severity Reaction Status Date / Time
ZACHARY Inhibitors Allergy Shortness Verified 05/21/24 13:12
of
Breath-possible
angioedema-pharm
to review
Cephalosporins Allergy Eosinophili Verified 05/21/24 13:12
a
Iodinated Contrast Media Allergy affected Verified 05/21/24 13:12
[Iodinated Contrast Media - kidneys
Oral and]
sulfamethoxazole Allergy Rash Verified 05/21/24 13:12
[From Bactrim]
trimethoprim [From Bactrim] Allergy Rash Verified 05/21/24 13:12
�Medication �Instructions �Recorded
rosuvastatin 40 mg tablet (Crestor) 40 mg PO HS High cholesterol 01/22/19
tamsulosin 0.4 mg capsule 0.4 mg PO BID Urinary issue 07/15/22
azelastine 137 mcg (0.1 %) nasal 1 spray intranasal BIDPRN PRN 09/14/23
spray congestion
apixaban 2.5 mg tablet (Eliquis) 2.5 mg PO BID #60 tabs 12/03/23
Lactobacillus-Bifidobacterium 30 1 cap PO DAILY Gastrointestinal 01/05/24
billion cell capsule,delayed Issue
release (Ultimate Mena Probiotic)
amiodarone 200 mg tablet (Pacerone) 200 mg PO HS Arrhythmia 01/05/24
cholecalciferol (vitamin D3) 50 100 mcg PO HS Supplement 01/05/24
mcg (2,000 unit) chewable tablet
clopidogrel 75 mg tablet 75 mg PO DAILY Blood Clot 01/05/24
Prevention/Tx
dextromethorphan-guaifenesin 30 1 tab PO [id number] PRN congestion ##0 01/05/24
mg-600 mg tablet extended
[id number] hr (Mucinex DM)
psyllium 1 packet PO HS constipation 01/05/24
insulin glargine 100 unit/mL (3 10 unit SC DAILY@1900 Diabetes 03/09/24
mL) subcutaneous pen (Lantus
Solostar U-100 Insulin)
torsemide 20 mg tablet 20 mg PO SUTUWETHFR Fluid 03/09/24
Retention/Swelling
acetaminophen 325 mg tablet 650 mg PO Q6HPRN PRN mild pain 05/21/24
(Tylenol)
ammonium lactate 12 % lotion 1 applic topical DAILYPRN PRN dry 05/21/24
skin on legs
triamcinolone acetonide 0.1 % 1 applic topical BIDPRN PRN rash 05/21/24
topical ointment on buttocks
glipizide 2.5 mg tablet 2.5 mg PO DAILY #30 tabs 05/24/24
Review of Systems
Vital Signs
Temp Pulse Resp BP Pulse Ox
97.5 F 60 18 156/64 93
05/27/24 08:00 05/27/24 08:00 05/27/24 08:00 05/27/24 08:00 05/27/24 10:05
Physical Exam
Exam
General: Well Developed and Well Nourished
HEENT: Normocephalic
Respiratory: Clear
Cardiac: S1/S2
GI: Soft, Non Tender, Non Distended and Normal Bowel Sounds
Results
WBC 14.4 10^3/uL (4.8-10.8) H 05/27/24 05:25
Hgb 9.2 g/dL (13.0-18.0) L 05/27/24 05:25
Hct 28.3 % (39.0-52.0) L 05/27/24 05:25
MCV 91.6 fL (80.0-94.0) 05/27/24 05:25
Plt Count 245 10^3/uL (130-400) 05/27/24 05:25
Absolute Neuts (auto) 11.0 10^3/uL (1.4-6.5) H 05/27/24 05:25
Sodium 143 mmol/L (135-145) 05/27/24 05:25
Potassium 4.2 mmol/L (3.5-5.1) 05/27/24 05:25
Chloride 101 mmol/L (98-107) 05/27/24 05:25
Carbon Dioxide 30 mmol/L (22-30) 05/27/24 05:25
BUN 42 mg/dl (9-20) H 05/27/24 05:25
Creatinine 1.6 mg/dL (0.7-1.3) H 05/27/24 05:25
Calcium 9.4 mg/dl (8.4-10.2) 05/27/24 05:25
Total Bilirubin 0.4 mg/dl (0.2-1.3) 05/27/24 05:25
AST 17 U/L (17-59) 05/27/24 05:25
ALT < 10 U/L (0-50) 05/27/24 05:25
Alkaline Phosphatase 73 U/L (38-126) 05/27/24 05:25
Diagnostic Image Results:
Prior GI Procedures:
EGD:
Colonoscopy:
Assessment / Plan
-
83-year-old male with history of SCC of the lung, chronic diastolic CHF, CKD, DM, CAD s/p CABG, P A-fib, and BPH who presented with weakness several days ago. Since admission, pt is being treated for probable prostatitis from E. coli with 4 week
course of doxycycline. Also noted to recurrent hypereosinophilia, started on prednisone with resolution, on tapering regimen. GI is being consulted for evaluation of mucus in stool. Having 3-4 BMs per day which looks mostly mucousy instead of
stool for past few days. Denies blood. Denies abdominal pain.
Impression / Rec:
1. 'mucus in stool' - not clear regarding this complaint. He seems to be more concerned about not seeing stool with his bowel movements. He is having 3-4 BMs per day. Can check stool studies to rule out infectious etiology. His diarrhea may be
secondary to his antibiotics. I encouraged patient to continue eating solid food and observing for abnormal findings in his stool. GI will sign off please call with questions.
Total Time Spent with Patient (in minutes): 55
-
-
Thank you for consultation and allowing me to participate in the patient's care. Please call the professor of public administration GI physician during the after hours with any questions or concerns.
[2024-05-27 15:04] VITALS: BP 155/61
--- NOTE | 2024-05-27 15:31 | W.PN.HOSP.TC ---
Today's Communication/Plan
-
PT/OT
Placement
Assessment / Plan
Assessment / Plan
Physical Exam
General: No Apparent Distress and Conversant
HEENT: Normocephalic
Respiratory: Clear
Cardiac: S1/S2 and Regular Rhythm
GI: Soft, Non Tender and Normal Bowel Sounds
Musculoskeletal: No Cyanosis and No Edema
Skin: Warm and Dry
Neuro: Awake, Alert, AO x 3 and Nonfocal/grossly intact
Psych: Calm and Intact Judgment/Insight
Assessment/Plan
#Generalized Weakness in the Setting of Cancer
#Concern for UTI
#History of E. coli UTI
#Probable prostatitis
#Leukocytosis
#Fever with Temperature 100.6 F on 05/22/24 evening
-Based on previous sensitivities, continued patient on Zosyn initially, ID consulted, appreciate their evaluation, Zosyn stopped and Fosfomycin given
-Continue Doxycycline - plan 4 weeks of doxycycline 100 mg PO BID
-Methenamine after Doxycycline course is completed
-Follow urine and blood cultures
-Consulted ID and Oncology, appreciate evaluation and recommendations
-Consulted urology due to urinary retention and need for Sloan catheter in the setting of probable prostatitis
-Continue Finasteride in addition to the patient's Tamsulosin
-Follow-up with PCP for cbc with diff in 1-2 weeks
#Recurrent Hypereosinophilia
- Hypereosinophilia was persistent and was getting worse but is now getting much better
- ID spoke with cardiology and Amiodarone has been stopped. Additional unneeded medications stopped as well.
- Hematology on board
- Appreciate ID discussion with hematology
- Steroids/prednisone as per hematology--> improving with steroids
#Mucus bowel movements, initially reported as diarrhea
-Normal Saline IV fluids (total 250 cc for now, given CHF history) was given
-Check stool studies, C. diff
-Possibly antibiotic-associated diarrhea
-Consulted GI, appreciate evaluation and recommendations given mucus type of bowel movements: GI encouraged patient to continue eating solid food and observing for abnormal findings in his stool
-Okay to start Miralax as per GI
#Urinary Retention
-Patient okay with keeping the Sloan Catheter for now
-Continue Sloan Catheter
#History of angioedema on ZACHARY inhibitors
#Hypotension
-Status post Midodrine and IV Fluids
-Patient had asymptomatic low BP 78/38-85'/40's on 05/22/24 evening, Midodrine and IV fluids were ordered with good improvement
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 Ferguson has been managing this
-Continue to monitor vital signs
-Consulted cardiology for this as well as per patient request
-Adjust Torsemide as below if needed
#Concern for KATHARINE
-Monitor BMP
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
#New-Onset Hypoxia
-Primary oncologist is Dr. Shin
-History of chemotherapy
-No on Keytruda, as per patient
-Follows with Dr. Melgar outpatient -- consulted pulmonary
-Will need home oxygen assessment test prior to discharge
-Now on room air
#Anemia secondary to chemotherapy and some heme dilution
-hgb 8.7 on admission -- remains -- stable; better than 7.8 in February 2024
#Chronic diastolic congestive heart failure
-Follow I/O, daily weights
-Patient appears dry as of 05/25/24, weight is lowest on record and his prior peripheral edema has resolved
-Patient's torsemide has been decreased from 5 days a week to 3 days a week�patient prefers Tuesday//Tuesday dosing
-If SYMPTOMATIC orthostasis continues reduce dosing of torsemide from 20 mg to 10 mg AND add conservative measures like graduated stockings, appreciate cardiology
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
#KATHARINE remains a known or suspected condition for this patient and is further supported by urinary retention
-Per previous reports, baseline Cr 1.7
-Creatinine this admission 2.1-->1.9-->1.8-->1.9-->2.0--->1.6
-Follow BMP, avoid nephrotoxic agents as much as possible
#Diabetes mellitus type 2
-Insulin Sliding Scale and Accuchecks
#RBBB
#Sinus bradycardia
#History of profound bradycardia on metoprolol which was DC'd in December
#CAD s/p CABG KINCAID-LAD 04/2015. PCI LM and LCX 06/2015
# 09/2022 post cath with patent KINCAID to LAD and stent and no new obstructive CAD.
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
-Continue Eliquis 2.5 mg twice daily, Plavix 75 mg daily
#Paroxysmal AFib
-Continue Eliquis 2.5 mg twice daily
-Amiodarone stopped in the setting of eosinophilia, appreciate ID and cardiology
-Per cardiology, long-term AF management considerations (rate vs rhythm control as well as DOAC vs Watchman) can be further discussed as an outpatient.
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
#Former smoker
#Hypercholesterolemia
-Continue Crestor
#BPH
-Continue Flomax 0.4 mg twice daily
DVT PPx: Eliquis
Code Status: Full code
Anticipated Discharge: 24 - 48 hours
Subjective/Interval History
-
Date of Service: May 27, 2024
Patient was seen and examined. He reported feeling okay, denied any new symptoms or complaints.
Objective Data
-
Labs:
Laboratory Results
05/27/24
05:25
WBC 14.4 H
Hgb 9.2 L
Hct 28.3 L
Plt Count 245
Sodium 143
Potassium 4.2
Chloride 101
Carbon Dioxide 30
BUN 42 H
Creatinine 1.6 H
Glucose 95
Calcium 9.4
Total Bilirubin 0.4
AST 17
ALT < 10
Alkaline Phosphatase 73
Vital Signs:
Vital Signs
Temp Pulse Resp BP Pulse Ox
97.7 F 53 18 161/69 94
05/27/24 11:28 05/27/24 11:28 05/27/24 11:28 05/27/24 11:28 05/27/24 11:28
I&O
05/26/24 05/27/24 05/28/24
06:59 06:59 06:59
Intake Total 990 / 990 980 / 980
Output Total 2150 / 2150 1875 / 1875
Balance -1160 / -1160 -895 / -895
[2024-05-27] MEDS: NOVOLOG FLEXPEN-LOW RESISTANCE 3 UNITS SC (17:04)
[2024-05-27 17:05] LABS: Glucose - Point of Care 250 mg/dl (70-99)
[2024-05-27 19:48] VITALS: BP 175/76
[2024-05-27] MEDS: CRESTOR 40 MG PO (21:08)
[2024-05-27 21:38] LABS: Glucose - Point of Care 194 mg/dl (70-99)
[2024-05-27 23:30] VITALS: BP 172/79
[2024-05-28] VITALS (7 sets, daily range): BP systolic 95–178; BP diastolic 61–76; BMI 27.6
[2024-05-28 04:41] LABS: % Basophils 0.6 % (0-2); % Eosinophils 2.6 % (0-6); % Immature Granulocytes 0.6 % (0-0.5); % Lymphocytes 12.8 % (20.5-51.1); % Monocytes 8.8 % (1.7-9.3); % Neutrophils 74.6 % (42.2-75.2); Absolute Basophils 0.1 10^3/uL (0-0.2); Absolute Eosinophils 0.4 10^3/uL (0-0.7); Absolute Immature Granulocytes 0.1 10^3/uL (0-0.05); Absolute Lymphocytes 1.8 10^3/uL (1.2-3.4); Absolute Monocytes 1.3 10^3/uL (0.1-0.6); Absolute Neutrophils 10.7 10^3/uL (1.4-6.5); Hematocrit 29.6 % (39.0-52.0); Hemoglobin 9.5 g/dL (13.0-18.0); Mean Corp Hgb Conc. 32.1 g/dL (33.0-37.0); Mean Corpuscular Hgb 29.5 pg (27.0-31.0); Mean Corpuscular Volume 91.9 fL (80.0-94.0); Mean Platelet Volume 8.7 fL (7.4-10.4); Nucleated Red Blood Cells % 0 % (-); Platelet Count 248 10^3/uL (130-400); Red Blood Cell Count 3.22 10^6/uL (4.70-6.10); White Blood Cell Count 14.4 10^3/uL (4.8-10.8)
[2024-05-28 05:05] LABS: Blood Urea Nitrogen 44 mg/dl (9-20); Calcium 9.7 mg/dl (8.4-10.2); Carbon Dioxide 30 mmol/L (22-30); Chloride 103 mmol/L (98-107); Estimated Creatinine Clearance 40 ml/min; Glucose 127 mg/dl (70-99); Magnesium 2.3 mg/dl (1.6-2.3); Potassium 4.2 mmol/L (3.5-5.1); Sodium 141 mmol/L (135-145); eGFR 46.19
[2024-05-28 07:07] LABS: Glucose - Point of Care 120 mg/dl (70-99)
[2024-05-28] MEDS: PLAVIX 75 MG PO (07:38)
[2024-05-28] MEDS: PROSCAR 5 MG PO (07:38)
[2024-05-28] MEDS: ELIQUIS 2.5 MG PO ×2 (07:38→21:30)
[2024-05-28] MEDS: NOVOLOG FLEXPEN-LOW RESISTANCE SC (07:38)
[2024-05-28] MEDS: LANTUS 0.1 UNITS SC (07:39)
[2024-05-28] MEDS: DELTASONE 40 MG PO (07:39)
[2024-05-28] MEDS: FLOMAX 0.4 MG PO ×2 (07:39→21:29)
[2024-05-28] MEDS: VIBRAMYCIN 100 MG PO ×2 (07:39→21:30)
[2024-05-28] MEDS: GLUCOTROL XL (EXTENDED RELEASE) 2.5 MG PO (07:42)
[2024-05-28] MEDS: TYLENOL 650 MG PO ×3 (08:34→22:19)
--- NOTE | 2024-05-28 10:52 | W.PN.HOSP.TC ---
Today's Communication/Plan
-
see A/P
Assessment / Plan
Assessment / Plan
A/P:
# Generalized Weakness in setting of Cancer
# Concern for UTI
# History of E. coli UTI
# Probable prostatitis
# Leukocytosis
Urine Cx with E coli
ID consulted, Zosyn stopped and Fosfomycin given
Cont 4 weeks of doxycycline 100 mg PO BID for probable Prostatitis due to E coli. OK for methenamine post doxycycline
# Recurrent Hypereosinophilia
Absolute Eosinophilia has resolved
Continue prednisone 40 mg with plan to taper by 10 mg q7 days until finished
Amiodarone has been stopped. Additional unneeded medications stopped as well.
Hematology on board
# Constipation with likely overflow diarrhea presented as mucus faint stool
Follow stool culture, C. diff
Start Senokot-S, Miralax, Dulcolax x1
# Acute urinary Retention
# BPH
Per uro, maintain Sloan catheter - voiding trial as outpatient in w/n 1 week
Continue Finasteride in addition to patient's Tamsulosin
# History of angioedema on ZACHARY inhibitors
# orthostatic Hypotension
Start compression therapy
# CKD stage 3
Monitor BMP
SCr today at 1.5
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
# New-Onset Hypoxia
Primary oncologist is Dr. Shin
Will need home oxygen assessment test prior to discharge. Now on room air
# Anemia secondary to chemotherapy and some heme dilution
# Chronic diastolic congestive heart failure
Cont Torsemide TTS with holding parameter
# Diabetes mellitus type 2
Insulin Sliding Scale and AccuCheck
# RBBB
# Sinus bradycardia
# History of profound bradycardia on metoprolol which was DC'd in December
# CAD s/p CABG KINCAID-LAD 04/2015. PCI LM and LCX 06/2015
# 09/2022 post cath with patent KINCAID to LAD and stent and no new obstructive CAD.
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
Continue Eliquis 2.5 mg twice daily, Plavix 75 mg daily
# Paroxysmal AFib
Continue Eliquis 2.5 mg twice daily
Amiodarone stopped in the setting of eosinophilia, appreciate ID and cardiology
Per cardiology, long-term AF management considerations (rate vs rhythm control as well as DOAC vs Watchman) can be further discussed as an outpatient.
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
# Former smoker
# Hypercholesterolemia
Continue Crestor
DVT PPx: Eliquis
Code Status: Full code
Dispo: pt refused SNF, will plan for HH
DW RN
DW Card
updated on the phone
total time spent 51 min
Anticipated Discharge: 24 - 48 hours
Subjective/Interval History
-
Date of Service: May 28, 2024
Objective Data
-
Labs:
Laboratory Results
05/28/24
04:23
WBC 14.4 H
Hgb 9.5 L
Hct 29.6 L
Plt Count 248
Sodium 141
Potassium 4.2
Chloride 103
Carbon Dioxide 30
BUN 44 H
Creatinine 1.5 H
Glucose 127 H
Calcium 9.7
Vital Signs:
Vital Signs
Temp Pulse Resp BP Pulse Ox
36.9 C 53 17 171/72 98
05/28/24 07:10 05/28/24 07:10 05/28/24 07:10 05/28/24 07:10 05/28/24 07:30
I&O
05/27/24 05/28/24 05/29/24
06:59 06:59 06:59
Intake Total 980 / 980 1380 / 1380
Output Total 1875 / 1875 2100 / 2100
Balance -895 / -895 -720 / -720
Review of Systems
-
All other systems: Reviewed and negative
Physical Exam
-
General: Well Developed, Well Nourished, Comfortable and Conversant
HEENT: Normocephalic
Respiratory: Clear to Auscultation and Non Labored Respirations; Negative Accessory Resp Muscle Use
Cardiac: Regular Rhythm and S1/S2
GI: Soft, Nontender, Nondistended and Normal Bowel Sounds
Neuro: Awake and Alert
Psych: Calm and Intact Judgement/Insight
Data Reviewed
-
Labs: Labs Reviewed by me
[2024-05-28] MEDS: DULCOLAX 10 MG RECTAL (11:43)
[2024-05-28] MEDS: MIRALAX 17 GRAMS PO (11:43)
[2024-05-28] MEDS: SENOKOT-S 1 TABLET PO ×2 (11:43→21:30)
[2024-05-28 12:16] LABS: Glucose - Point of Care 257 mg/dl (70-99)
[2024-05-28] MEDS: NOVOLOG FLEXPEN-LOW RESISTANCE 3 UNITS SC ×2 (12:25→16:36)
[2024-05-28 16:34] LABS: Glucose - Point of Care 295 mg/dl (70-99)
[2024-05-28] MEDS: CRESTOR 40 MG PO (21:29)
[2024-05-28 23:41] LABS: Glucose - Point of Care 188 mg/dl (70-99)
[2024-05-29 05:39] LABS: % Basophils 0.5 % (0-2); % Eosinophils 3.6 % (0-6); % Immature Granulocytes 0.5 % (0-0.5); % Lymphocytes 14.4 % (20.5-51.1); % Monocytes 10.1 % (1.7-9.3); % Neutrophils 70.9 % (42.2-75.2); Absolute Basophils 0.1 10^3/uL (0-0.2); Absolute Eosinophils 0.5 10^3/uL (0-0.7); Absolute Immature Granulocytes 0.1 10^3/uL (0-0.05); Absolute Lymphocytes 1.9 10^3/uL (1.2-3.4); Absolute Monocytes 1.3 10^3/uL (0.1-0.6); Absolute Neutrophils 9.2 10^3/uL (1.4-6.5); Hematocrit 30.8 % (39.0-52.0); Hemoglobin 10.1 g/dL (13.0-18.0); Mean Corp Hgb Conc. 32.8 g/dL (33.0-37.0); Mean Corpuscular Hgb 30.5 pg (27.0-31.0); Mean Corpuscular Volume 93.1 fL (80.0-94.0); Mean Platelet Volume 8.9 fL (7.4-10.4); Nucleated Red Blood Cells % 0 % (-); Platelet Count 247 10^3/uL (130-400); Red Blood Cell Count 3.31 10^6/uL (4.70-6.10); Red Cell Dist. Width 16.9 % (11.5-14.5)
[2024-05-29 06:00] VITALS: BMI 27.4
[2024-05-29 06:04] LABS: Blood Urea Nitrogen 45 mg/dl (9-20); Calcium 9.7 mg/dl (8.4-10.2); Carbon Dioxide 28 mmol/L (22-30); Chloride 104 mmol/L (98-107); Estimated Creatinine Clearance 43 ml/min; Glucose 112 mg/dl (70-99); Magnesium 2.3 mg/dl (1.6-2.3); Potassium 4.4 mmol/L (3.5-5.1); Sodium 140 mmol/L (135-145); eGFR 50.18
[2024-05-29 07:30] VITALS: BP 139/67
--- NOTE | 2024-05-29 07:40 | PN.DE.MGMTRT ---
Insulin Management
- -
05/29/2024: Diabetes Management Follow up:
Patient admitted with progressive weakness, falls and UTI secondary to E.Coli. 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
Pt was taking Lantus 10 units @ 1900 and Glipizide 5mg BID. Pt states that he has not been taking his diabetes meds consistently due to episodes of low blood sugars. Reports that his blood sugar has been in range of 70-100's, mostly 80's, so he
stopped taking the insulin 2 weeks ago but continued taking the Glipizide as needed. states he has a working meter- [employer] at home with enough supplies.
Last A1C was 7.1% on 03/10/24. Cr 2.1-->1.9(baseline 1.7), eGFR 34.79.
Pt awake, A/O x3, resting in bed, offers no complaints and is able to discuss diabetes mgt.
Diet changed to carb controlled low cholesterol 05/22.
Glipizide on admission was 5 mg BID. Dose reduced to 2.5 mg daily. Pre lunch and pre dinner glucose consistently 257 to 295. Will increase glipizide to 5 mg in AM only, continue 10 units lantus in AM.
Will follow for further needed adjustments.
Diabetes History
- -
Type of Diabetes: 2
Pre-Admission Diabetes Regimen
05/29/24
05:21
Creatinine 1.4 H
Lab Results
Hemoglobin A1c 6.5 % (4.0-5.6) H 05/22/24 12:53
Insulin Pump Settings
IP Diabetes Regimen
05/28/24 05/28/24 05/28/24
12:13 16:31 23:40
Glucose
POC Glucose 257 H 295 H 188 H
05/29/24
05:21
Glucose 112 H
POC Glucose
Meal type: Dinner
Meal type: Lunch
Meal type: Breakfast
Amount consumed: 100%
Amount consumed: 100%
Amount consumed: 100%
Patient Education
[2024-05-29 08:22] LABS: Glucose - Point of Care 86 mg/dl (70-99)
[2024-05-29] MEDS: NOVOLOG FLEXPEN-LOW RESISTANCE SC (08:23)
[2024-05-29] MEDS: ELIQUIS 2.5 MG PO ×2 (08:39→21:12)
[2024-05-29] MEDS: MIRALAX 17 GRAMS PO (08:39)
[2024-05-29] MEDS: SENOKOT-S 1 TABLET PO ×2 (08:39→21:11)
[2024-05-29] MEDS: GLUCOTROL XL (EXTENDED RELEASE) 5 MG PO (08:39)
[2024-05-29] MEDS: VIBRAMYCIN 100 MG PO ×2 (08:39→21:12)
[2024-05-29] MEDS: FLOMAX 0.4 MG PO ×2 (08:39→21:11)
[2024-05-29] MEDS: PLAVIX 75 MG PO (08:39)
[2024-05-29] MEDS: LANTUS 0.1 UNITS SC (08:39)
[2024-05-29] MEDS: PROSCAR 5 MG PO (08:39)
[2024-05-29] MEDS: DELTASONE 40 MG PO (08:39)
[2024-05-29] MEDS: DEMADEX 20 MG PO (08:41)
[2024-05-29] MEDS: TYLENOL 650 MG PO ×2 (09:06→21:13)
--- NOTE | 2024-05-29 10:17 | W.PN.HOSP.TC ---
Today's Communication/Plan
-
see AP
Assessment / Plan
Assessment / Plan
A/P:
# Generalized Weakness in setting of Cancer
# Concern for UTI
# History of E. coli UTI
# Probable prostatitis
# Leukocytosis
Urine Cx with E coli
ID consulted, Zosyn stopped and Fosfomycin given
Cont 4 weeks of doxycycline 100 mg PO BID for probable Prostatitis due to E coli. OK for methenamine post doxycycline
# Recurrent Hypereosinophilia
Absolute Eosinophilia has resolved
Continue prednisone 40 mg with plan to taper by 10 mg q7 days until finished
Amiodarone has been stopped. Additional unneeded medications stopped as well.
Hematology on board
# Constipation with likely overflow diarrhea presented as mucus faint stool
Follow stool culture
C. diff negative
Started Senokot-S, Miralax
s/p Dulcolax x1, will order fleet enema x1 today
# Acute urinary Retention
# BPH
Per uro, maintain Sloan catheter - voiding trial as outpatient in w/n 1 week
Continue Finasteride in addition to patient's Tamsulosin
# History of angioedema on ZACHARY inhibitors
# orthostatic Hypotension
Started compression therapy
# CKD stage 3
Monitor BMP
SCr today at 1.4
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
# New-Onset Hypoxia
Primary oncologist is Dr. Shin
Will need home oxygen assessment test prior to discharge. Now on room air
# Anemia secondary to chemotherapy and some heme dilution
# Chronic diastolic congestive heart failure
Cont Torsemide TTS with holding parameter
# Diabetes mellitus type 2
Insulin Sliding Scale and AccuCheck
# RBBB
# Sinus bradycardia
# History of profound bradycardia on metoprolol which was DC'd in December
# CAD s/p CABG KINCAID-LAD 04/2015. PCI LM and LCX 06/2015
# 09/2022 post cath with patent KINCAID to LAD and stent and no new obstructive CAD.
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
Continue Eliquis 2.5 mg twice daily, Plavix 75 mg daily
# Paroxysmal AFib
Continue Eliquis 2.5 mg twice daily
Amiodarone stopped in the setting of eosinophilia, appreciate ID and cardiology
Per cardiology, long-term AF management considerations (rate vs rhythm control as well as DOAC vs Watchman) can be further discussed as an outpatient.
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
# Former smoker
# Hypercholesterolemia
Continue Crestor
# Pin rolling tremor of R fingers
informed pt to have Parkinson's eval outpt
DVT PPx: Eliquis
Code Status: Full code
Dispo: pt now willing for SNF
DW RN
Anticipated Discharge: Within 24 hours
Subjective/Interval History
-
Date of Service: May 29, 2024
Objective Data
-
Labs:
Laboratory Results
05/29/24
05:21
WBC 13.0 H
Hgb 10.1 L
Hct 30.8 L
Plt Count 247
Sodium 140
Potassium 4.4
Chloride 104
Carbon Dioxide 28
BUN 45 H
Creatinine 1.4 H
Glucose 112 H
Calcium 9.7
Vital Signs:
Vital Signs
Temp Pulse Resp BP Pulse Ox
36.4 C 62 20 159/76 93
05/28/24 23:44 05/28/24 23:44 05/28/24 23:44 05/28/24 23:44 05/28/24 23:44
I&O
05/28/24 05/29/24 05/30/24
06:59 06:59 06:59
Intake Total 1380 / 1380 1200 / 1200
Output Total 2099 / 2100 1800 / 1800
Balance -720 / -720 -600 / -600
Review of Systems
-
All other systems: Reviewed and negative
Physical Exam
-
General: Well Developed, Well Nourished, Comfortable and Conversant
HEENT: Normocephalic
Respiratory: Clear to Auscultation and Non Labored Respirations; Negative Accessory Resp Muscle Use
Cardiac: Regular Rhythm and S1/S2
GI: Soft, Nontender, Nondistended and Normal Bowel Sounds
Neuro: Awake, Alert and Other (R fingers pin rolling tremor)
Psych: Calm and Intact Judgement/Insight
Data Reviewed
-
Labs: Labs Reviewed by me
--- NOTE | 2024-05-29 10:52 | CM ---
Addendum entered by Kandy Coughlin 05/29/24 14:09:
Patient updated that bed available at [facility] and patient will call to patient and review option. Patient requested referral to go to [facility] as well. CM will send referral.
Addendum entered by Kandy Coughlin 05/29/24 11:01:
Updated clinicals sent to 3 facilities, awaiting response. previously no availability for beds.
Original Note:
Patient seen at bedside with many concerns. Patient states that he wants to go home with [facility]. however patient also states that he wants to talk to Dr Will and then if physician recommends he will go to SNF. [facility]. CM updated physician await clarification about options. CM will confirm referrals and explore available beds. CM will continue to follow for discharge planning needs.
Plan; home with VN vs SNF pending physician assessment
[2024-05-29] MEDS: FLEET MINERAL OIL ENEMA 133 ML RECTAL (11:01)
--- NOTE | 2024-05-29 11:43 | W.PN.ONC2 ---
Today's Communication / Plan
-
daily CBC with diff
Impression
Impression
Squamous Cell LC of the MICHEAL s/p SBRT, completed carbo/taxol 04/17/2024, currently on Keytruda
UTI/prostatitis
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
unclear if eosinophilia is related to immunotherapy - as IO can cause Eos to rise and keytruda just re-initiated 05/14 +/- amiodarone. Unclear if resolution of eosinophilia on 05/26 is 2/2 steroids started 05/25 or stopping amiodarone 05/24
OH
HFpEF
DM2
CKD
Plan
Plan
eosinophilia -amiodarone stopped and short course steroids -will need tight glucose control on steroids
diuretics and OAC per cardiology
abx per ID
Subjective/Objective
Chief Complaint
afebrile, no hypoxia or hypotension
Subjective
Vital Signs:
Vital Signs
Temp Pulse Resp BP Pulse Ox
97.8 F 56 24 139/67 95
05/29/24 07:30 05/29/24 07:30 05/29/24 07:30 05/29/24 07:30 05/29/24 07:30
Lab Results:
Laboratory Data
WBC 13.0 10^3/uL (4.8-10.8) H 05/29/24 05:21
Hgb 10.1 g/dL (13.0-18.0) L 05/29/24 05:21
Plt Count 247 10^3/uL (130-400) 05/29/24 05:21
eGFR 50.18 05/29/24 05:21
Physical Exam
HEENT: Moist Mucous Membranes; No Jaundice
Cardiology: S1 and S2
Pulmonary: Clear
GI: Soft and Other (clear yellow urine)
Neuro: Non Focal
Review of Systems
Review of Systems
ROS notable for subjective, otherwise negative
--- NOTE | 2024-05-29 11:53 | W.PN.ID1 ---
Date of Service
Date of Service: May 29, 2024
Today's Communication
- plan 4 weeks of doxycycline 100 mg PO BID 05/23-06/19
stable for dc, follow up with oncology and urology
Assessment / Plan
Probable Prostatitis due to E coli
- plan 4 weeks of doxycycline 100 mg PO BID 05/23-06/19
- fine for methenamine post the doxycycline
- on flomax, finasteride
- agree with daniel, management per urology
Recurrent Hypereosinophilia
- with exception of torsemide he was on the same medications as his oct admission at admission here
- doxycycline and finasteride were added this admission after the eosinophilia started two months ago
- oct 2023 had hypereosinophilia and pneumonitis, pneumonitis was attributed to keytruda, could also have been due to eosinophilia from my perspective
- reviewed with Dr Blackburn cardiology - ok to stop amiodarone given eosinophilia
- outpatient chart review showed relapse of eosinophils prior to the restart of keytruda per Dr Tubbs
- CXR Progressed left lung findings - possible pneumonitis vs unlikely pneumonia, on doxycycline for alternative dx as above
- chronic prostatitis also a possible cause of eosinophilia - treatment as above
- follow up with oncology
stable for dc, follow up with oncology and urology
Chief Complaint
-: UTI (Prostatitis - chronic) and Other (eosinophilia)
Subjective / Review of Systems
afebrile
no events overnight
orthostasis reported - managed by cardiology
Vital Signs / Physical Exam
Vital Signs
Vital Signs
Temp Pulse Resp BP Pulse Ox
97.8 F 56 24 139/67 95
05/29/24 07:30 05/29/24 07:30 05/29/24 07:30 05/29/24 07:30 05/29/24 07:30
Physical Exam
Constitutional: No Acute Distress and Chronically Ill
Cardiovascular: Regular Rate and S1/S2; Negative Murmur or Rub
Pulmonary: Clear and Symmetric; Negative Wheezes or Rales
Gastrointestinal: Soft, Non Tender, Non Distended and Normal Bowel Sounds
Skin: Warm and Dry; Negative Rash or Jaundice
Objective Data
Lab Data
Lab Results
05/29/24 05:21
05/29/24 05:21
Estimated Creat Clear 43 ml/min 05/29/24 05:21
Total Bilirubin 0.4 mg/dl (0.2-1.3) 05/27/24 05:25
AST 17 U/L (17-59) 05/27/24 05:25
ALT < 10 U/L (0-50) 05/27/24 05:25
Alkaline Phosphatase 73 U/L (38-126) 05/27/24 05:25
AEC 500 today
Most recent labs reviewed.
Micro Results:
05/28/24 10:23 Salmonella/Shigella Culture - Preliminary
Feces/Stool Culture in Progress
Campylobacter Culture - Preliminary
Culture in Progress
Shiga Toxin Test - Pending
Stool Leukocytes - Final
05/28/24 10:23 C. difficile GDH Antigen & Toxins - Final
Feces/Stool Negative for toxigenic C.difficile
05/21/24 18:29 Blood Culture - Final
Blood/Venous No Growth - Final Report
05/21/24 16:33 Urine Culture - Final
Urine Escherichia coli
[2024-05-29 12:00] LABS: Glucose - Point of Care 214 mg/dl (70-99)
[2024-05-29] MEDS: NOVOLOG FLEXPEN-LOW RESISTANCE 2 UNITS SC ×2 (12:03→17:35)
[2024-05-29 16:09] VITALS: BP 172/78
[2024-05-29 17:25] LABS: Glucose - Point of Care 212 mg/dl (70-99)
[2024-05-29 18:00] VITALS: BP 130/78
[2024-05-29] MEDS: CRESTOR 40 MG PO (21:12)
[2024-05-29 21:33] LABS: Glucose - Point of Care 257 mg/dl (70-99)
[2024-05-29] MEDS: TRIAMCINOLONE 0.1% OINTMENT 1 APPLIC TOPICAL (22:30)
[2024-05-29 23:18] VITALS: BP 146/71
[2024-05-30 05:04] LABS: % Basophils 0.5 % (0-2); % Eosinophils 2.8 % (0-6); % Immature Granulocytes 0.4 % (0-0.5); % Lymphocytes 14.1 % (20.5-51.1); % Monocytes 10.4 % (1.7-9.3); % Neutrophils 71.8 % (42.2-75.2); Absolute Basophils 0.1 10^3/uL (0-0.2); Absolute Eosinophils 0.4 10^3/uL (0-0.7); Absolute Immature Granulocytes 0.1 10^3/uL (0-0.05); Absolute Lymphocytes 1.8 10^3/uL (1.2-3.4); Absolute Monocytes 1.3 10^3/uL (0.1-0.6); Absolute Neutrophils 9.1 10^3/uL (1.4-6.5); Hematocrit 32.2 % (39.0-52.0); Hemoglobin 10.3 g/dL (13.0-18.0); Mean Corpuscular Hgb 29.9 pg (27.0-31.0); Mean Corpuscular Volume 93.6 fL (80.0-94.0); Nucleated Red Blood Cells % 0 % (-); Platelet Count 252 10^3/uL (130-400); Red Blood Cell Count 3.44 10^6/uL (4.70-6.10); Red Cell Dist. Width 16.9 % (11.5-14.5); White Blood Cell Count 12.7 10^3/uL (4.8-10.8)
[2024-05-30 05:32] LABS: Blood Urea Nitrogen 58 mg/dl (9-20); Calcium 9.6 mg/dl (8.4-10.2); Carbon Dioxide 30 mmol/L (22-30); Chloride 103 mmol/L (98-107); Estimated Creatinine Clearance 38 ml/min; Glucose 129 mg/dl (70-99); Potassium 4.5 mmol/L (3.5-5.1); Sodium 141 mmol/L (135-145); eGFR 42.75
[2024-05-30 06:00] VITALS: BMI 27.0
[2024-05-30 07:00] VITALS: BP 148/73
--- NOTE | 2024-05-30 07:49 | PN.DE.MGMTRT ---
Insulin Management
- -
05/30/2024: Diabetes Management Follow up:
Patient admitted with progressive weakness, falls and UTI secondary to E.Coli. 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
Pt was taking Lantus 10 units @ 1900 and Glipizide 5mg BID. Pt states that he has not been taking his diabetes meds consistently due to episodes of low blood sugars. Reports that his blood sugar has been in range of 70-100's, mostly 80's, so he
stopped taking the insulin 2 weeks ago but continued taking the Glipizide as needed. states he has a working meter- [employer] at home with enough supplies.
Last A1C was 7.1% on 03/10/24. Cr 2.1-->1.9(baseline 1.7), eGFR 34.79.
Pt awake, A/O x3, resting in bed, offers no complaints and is able to discuss diabetes mgt.
Diet changed to carb controlled low cholesterol 05/22.
Glipizide on admission was 5 mg BID. Dose reduced to 2.5 mg daily. Pre lunch and pre dinner glucose consistently 257 to 295. Glipizide increased to 5 mg in AM only, continue 10 units lantus in AM. Glucose range 86 to 257, requiring corrective
insulin. Patient is on steroid taper, still receiving 30 mg daily. He states whenever he receives steroids his blood sugar is high but once they are done he is back to normal. Will not start AC novolog, will increase corrective insulin from low
to moderate.
Will follow for further needed adjustments.
Diabetes History
- -
Type of Diabetes: 2
Pre-Admission Diabetes Regimen
05/30/24
04:28
Creatinine 1.6 H
Lab Results
Hemoglobin A1c 6.5 % (4.0-5.6) H 05/22/24 12:53
Insulin Pump Settings
IP Diabetes Regimen
05/29/24 05/29/24 05/29/24
08:21 11:59 17:24
Glucose
POC Glucose 86 214 H 212 H
05/29/24 05/30/24
21:32 04:28
Glucose 129 H
POC Glucose 257 H
Meal type: Breakfast
Amount consumed: 100%
Patient Education
[2024-05-30 08:42] LABS: Glucose - Point of Care 90 mg/dl (70-99)
[2024-05-30] MEDS: PLAVIX 75 MG PO (08:59)
[2024-05-30] MEDS: DELTASONE 40 MG PO (08:59)
[2024-05-30] MEDS: VIBRAMYCIN 100 MG PO ×2 (08:59→20:39)
[2024-05-30] MEDS: GLUCOTROL XL (EXTENDED RELEASE) 5 MG PO (08:59)
[2024-05-30] MEDS: SENOKOT-S 1 TABLET PO ×2 (08:59→20:38)
[2024-05-30] MEDS: ELIQUIS 2.5 MG PO ×2 (08:59→20:39)
[2024-05-30] MEDS: FLOMAX 0.4 MG PO ×2 (08:59→20:38)
[2024-05-30] MEDS: MIRALAX 17 GRAMS PO (08:59)
[2024-05-30] MEDS: LANTUS 0.1 UNITS SC (09:00)
[2024-05-30] MEDS: PROSCAR 5 MG PO (09:01)
[2024-05-30] MEDS: NOVOLOG FLEXPEN-LOW RESISTANCE SC (09:01)
[2024-05-30] MEDS: TYLENOL 650 MG PO ×2 (09:29→20:38)
--- NOTE | 2024-05-30 10:52 | W.PN.HOSP.TC ---
Today's Communication/Plan
-
see AP
Assessment / Plan
Assessment / Plan
A/P:
# Generalized Weakness in setting of Cancer
# Concern for UTI
# History of E. coli UTI
# Probable prostatitis
# Leukocytosis
Urine Cx with E coli
ID consulted, Zosyn stopped and Fosfomycin given
Cont 4 weeks of doxycycline 100 mg PO BID for probable Prostatitis due to E coli. OK for methenamine post doxycycline
# Recurrent Hypereosinophilia
Absolute Eosinophilia has resolved
Continue prednisone 40 mg with plan to taper by 10 mg q7 days until finished
Amiodarone has been stopped. Additional unneeded medications stopped as well.
Hematology on board
# Constipation with likely overflow diarrhea presented as mucus faint stool
Follow stool culture
C. diff negative
Started Senokot-S, Miralax
s/p Dulcolax x1, s/p fleet enema x1 and constipation resolved
# Acute urinary Retention
# BPH
Per uro, maintain Sloan catheter - voiding trial as outpatient in w/n 1 week
Continue Finasteride in addition to patient's Tamsulosin
# History of angioedema on ZACHARY inhibitors
# orthostatic Hypotension
Started compression therapy
# CKD stage 3
Monitor BMP
SCr today at 1.4
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
# New-Onset Hypoxia
Primary oncologist is Dr. Shin
Will need home oxygen assessment test prior to discharge. Now on room air
# Anemia secondary to chemotherapy and some heme dilution
# Chronic diastolic congestive heart failure
Cont Torsemide TTS with holding parameter
# Diabetes mellitus type 2
Insulin Sliding Scale and AccuCheck
# RBBB
# Sinus bradycardia
# History of profound bradycardia on metoprolol which was DC'd in December
# CAD s/p CABG KINCAID-LAD 04/2015. PCI LM and LCX 06/2015
# 09/2022 post cath with patent KINCAID to LAD and stent and no new obstructive CAD.
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
Continue Eliquis 2.5 mg twice daily, Plavix 75 mg daily
# Paroxysmal AFib
Continue Eliquis 2.5 mg twice daily
Amiodarone stopped in the setting of eosinophilia, appreciate ID and cardiology
Per cardiology, long-term AF management considerations (rate vs rhythm control as well as DOAC vs Watchman) can be further discussed as an outpatient.
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
# Former smoker
# Hypercholesterolemia
Continue Crestor
# Pin rolling tremor of R fingers
informed pt to have Parkinson's eval outpt
DVT PPx: Eliquis
Code Status: Full code
Dispo: pt now willing for SNF
DW RN
DW CM
Anticipated Discharge: Today
Subjective/Interval History
-
Date of Service: May 30, 2024
Objective Data
-
Labs:
Laboratory Results
05/30/24
04:28
WBC 12.7 H
Hgb 10.3 L
Hct 32.2 L
Plt Count 252
Sodium 141
Potassium 4.5
Chloride 103
Carbon Dioxide 30
BUN 58 H
Creatinine 1.6 H
Glucose 129 H
Calcium 9.6
Vital Signs:
Vital Signs
Temp Pulse Resp BP Pulse Ox
36.4 C 57 18 148/73 95
05/30/24 07:00 05/30/24 07:00 05/30/24 07:00 05/30/24 07:00 05/30/24 07:00
I&O
05/29/24 05/30/24 05/31/24
06:59 06:59 06:59
Intake Total 1200 / 1200 960 / 960
Output Total 1800 / 1800 2550 / 2550
Balance -600 / -600 -1590 / -1590
Review of Systems
-
All other systems: Reviewed and negative
Physical Exam
-
General: Well Developed, Well Nourished, Comfortable and Conversant
HEENT: Normocephalic
Respiratory: Clear to Auscultation and Non Labored Respirations; Negative Accessory Resp Muscle Use
Cardiac: Regular Rhythm and S1/S2
GI: Soft, Nontender, Nondistended and Normal Bowel Sounds
Neuro: Awake, Alert and Other (R fingers pin rolling tremor)
Psych: Calm and Intact Judgement/Insight
Data Reviewed
-
Labs: Labs Reviewed by me
[2024-05-30] MEDS: NOVOLOG FLEXPEN-MODERATE RESISTANCE 1 UNITS SC (12:00)
[2024-05-30 12:01] LABS: Glucose - Point of Care 177 mg/dl (70-99)
--- NOTE | 2024-05-30 13:38 | CM ---
Bed at [facility] was recinded, patient updated as well as physician and CM will restart search. PT updated.
[2024-05-30 15:00] VITALS: BP 154/66
[2024-05-30 16:26] VITALS: BP 104/65; BP 144/71; BP 154/66; BP 88/50; PULSE 54; PULSE 68; PULSE 81; O2SAT 94
--- NOTE | 2024-05-30 16:51 | W.PN.ID1 ---
Date of Service
Date of Service: May 30, 2024
Today's Communication
stable for dc, follow up with oncology and urology
Assessment / Plan
Probable Prostatitis due to E coli
- plan 4 weeks of doxycycline 100 mg PO BID 05/23-06/19
- fine for methenamine post the doxycycline
- on flomax, finasteride
- agree with sanchez, management per urology
Recurrent Hypereosinophilia
- with exception of torsemide he was on the same medications as his oct admission at admission here
- doxycycline and finasteride were added this admission after the eosinophilia started two months ago
- oct 2023 had hypereosinophilia and pneumonitis, pneumonitis was attributed to keytruda, could also have been due to eosinophilia itself from my perspective
- stopped amiodarone last week
- outpatient chart review showed relapse of eosinophils prior to the restart of keytruda per Dr Tubbs
- CXR Progressed left lung findings - possible pneumonitis vs unlikely pneumonia, on doxycycline for alternative dx as above
- chronic prostatitis also a possible cause of eosinophilia - treatment as above
- follow up with oncology
stable for dc, follow up with oncology and urology
Chief Complaint
-: UTI (Prostatitis - chronic) and Other (eosinophilia)
Subjective / Review of Systems
afebrile
bp stable
no complaints
questioning about follow up with hematology from rehab
Vital Signs / Physical Exam
Vital Signs
Vital Signs
Temp Pulse Resp BP Pulse Ox
97.9 F 54 18 154/66 95
05/30/24 15:00 05/30/24 15:00 05/30/24 15:00 05/30/24 15:00 05/30/24 15:00
Physical Exam
Constitutional: No Acute Distress
Cardiovascular: Regular Rate
Pulmonary: Symmetric and Non Labored
Gastrointestinal: Non Distended
Skin: Dry; Negative Rash or Jaundice
Objective Data
Lab Data
Lab Results
05/30/24 04:28
05/30/24 04:28
Estimated Creat Clear 38 ml/min 05/30/24 04:28
Total Bilirubin 0.4 mg/dl (0.2-1.3) 05/27/24 05:25
AST 17 U/L (17-59) 05/27/24 05:25
ALT < 10 U/L (0-50) 05/27/24 05:25
Alkaline Phosphatase 73 U/L (38-126) 05/27/24 05:25
Most recent labs reviewed.
Micro Results:
05/28/24 10:23 Salmonella/Shigella Culture - Final
Feces/Stool No Salmonella, Shigella, Aeromonas or Plesiomonas species
isolated.
Campylobacter Culture - Final
No Campylobacter species isolated.
Shiga Toxin Test - Pending
Stool Leukocytes - Final
05/28/24 10:23 C. difficile GDH Antigen & Toxins - Final
Feces/Stool Negative for toxigenic C.difficile
05/21/24 18:29 Blood Culture - Final
Blood/Venous No Growth - Final Report
05/21/24 16:33 Urine Culture - Final
Urine Escherichia coli
Care Review
Plan reviewed with: Physician (Dr Shin - she will follow eosinophilia outpatient)
[2024-05-30 17:16] LABS: Glucose - Point of Care 248 mg/dl (70-99)
[2024-05-30] MEDS: NOVOLOG FLEXPEN-MODERATE RESISTANCE 3 UNITS SC (17:22)
[2024-05-30] MEDS: CRESTOR 40 MG PO (20:38)
[2024-05-30] MEDS: TRIAMCINOLONE 0.1% OINTMENT 1 APPLIC TOPICAL (20:39)
[2024-05-30] MEDS: FLUSH (NSS) 2 FLUSH IV (20:43)
[2024-05-30 21:28] LABS: Glucose - Point of Care 198 mg/dl (70-99)
[2024-05-30 23:00] VITALS: BP 119/60
[2024-05-31] MEDS: TYLENOL 650 MG PO ×2 (05:33→11:00)
[2024-05-31 05:41] LABS: % Basophils 0.4 % (0-2); % Eosinophils 3.9 % (0-6); % Immature Granulocytes 0.6 % (0-0.5); % Lymphocytes 14.3 % (20.5-51.1); % Neutrophils 70.8 % (42.2-75.2); Absolute Basophils 0.1 10^3/uL (0-0.2); Absolute Eosinophils 0.5 10^3/uL (0-0.7); Absolute Immature Granulocytes 0.1 10^3/uL (0-0.05); Absolute Lymphocytes 1.7 10^3/uL (1.2-3.4); Absolute Monocytes 1.2 10^3/uL (0.1-0.6); Absolute Neutrophils 8.5 10^3/uL (1.4-6.5); Hematocrit 31.5 % (39.0-52.0); Mean Corp Hgb Conc. 31.7 g/dL (33.0-37.0); Mean Corpuscular Hgb 29.2 pg (27.0-31.0); Mean Corpuscular Volume 91.8 fL (80.0-94.0); Mean Platelet Volume 8.6 fL (7.4-10.4); Nucleated Red Blood Cells % 0 % (-); Platelet Count 239 10^3/uL (130-400); Red Blood Cell Count 3.43 10^6/uL (4.70-6.10); Red Cell Dist. Width 17.2 % (11.5-14.5)
[2024-05-31 06:00] VITALS: BMI 27.1
[2024-05-31 06:11] LABS: Blood Urea Nitrogen 60 mg/dl (9-20); Calcium 9.8 mg/dl (8.4-10.2); Carbon Dioxide 24 mmol/L (22-30); Chloride 103 mmol/L (98-107); Estimated Creatinine Clearance 38 ml/min; Glucose 102 mg/dl (70-99); Potassium 4.5 mmol/L (3.5-5.1); Sodium 142 mmol/L (135-145); eGFR 42.75
[2024-05-31 07:25] VITALS: BP 171/75
--- NOTE | 2024-05-31 07:26 | PN.DE.MGMTRT ---
Insulin Management
- -
05/31/2024: Diabetes Management Follow up:
Patient admitted with progressive weakness, falls and UTI secondary to E.Coli. 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
Pt was taking Lantus 10 units @ 1900 and Glipizide 5mg BID. Pt states that he has not been taking his diabetes meds consistently due to episodes of low blood sugars. Reports that his blood sugar has been in range of 70-100's, mostly 80's, so he
stopped taking the insulin 2 weeks ago but continued taking the Glipizide as needed. states he has a working meter- [employer] at home with enough supplies.
Last A1C was 7.1% on 03/10/24. Cr 2.1-->1.9(baseline 1.7), eGFR 34.79.
Pt awake, A/O x3, resting in bed, offers no complaints and is able to discuss diabetes mgt.
05/31 Venous glucose @ 5:24 102, @ 8:25 glucose 64 and 8:42 69 treated x 2 then @ 9:02 102. Glipizide has been stopped and lantus dose reduced to 5 units. Will defer to Dr. Santiago
Diabetes History
- -
Type of Diabetes: 2
Pre-Admission Diabetes Regimen
05/31/24
05:24
Creatinine 1.6 H
Lab Results
Hemoglobin A1c 6.5 % (4.0-5.6) H 05/22/24 12:53
Insulin Pump Settings
IP Diabetes Regimen
05/30/24 05/30/24 05/30/24
08:33 11:59 17:10
Glucose
POC Glucose 90 177 H 248 H
05/30/24 05/31/24
21:26 05:24
Glucose 102 H
POC Glucose 198 H
Meal type: Lunch
Amount consumed: 100%
Patient Education
[2024-05-31 08:29] LABS: Glucose - Point of Care 64 mg/dl (70-99)
[2024-05-31] MEDS: NOVOLOG FLEXPEN-MODERATE RESISTANCE SC ×2 (08:31→11:43)
[2024-05-31] MEDS: LANTUS SC (08:31)
[2024-05-31 08:46] LABS: Glucose - Point of Care 69 mg/dl (70-99)
[2024-05-31 09:10] LABS: Glucose - Point of Care 102 mg/dl (70-99)
--- NOTE | 2024-05-31 09:10 | CM ---
Patient accepted for transfer to [facility]. Please call report to [phone]/fax [phone]. Patient in agreement with discharge plan. CM will discuss with ambulance transportation liaison about transportation options. CM will continue to
follow for discharge planning needs.
Plan;transition to SNF today.
--- NOTE | 2024-05-31 09:43 | W.PN.HOSP.TC ---
Addendum entered and electronically signed by Danitza Santiago MD 05/31/24 14:04:
total DC time 40 min
Original Note:
Today's Communication/Plan
-
see A/P
Assessment / Plan
Assessment / Plan
A/P:
# Generalized Weakness in setting of Cancer
# Concern for UTI
# History of E. coli UTI
# Probable prostatitis
# Leukocytosis
Urine Cx with E coli
ID consulted, Zosyn stopped and Fosfomycin given
Cont 4 weeks of doxycycline 100 mg PO BID for probable Prostatitis due to E coli. OK for methenamine post doxycycline
# Recurrent Hypereosinophilia
Absolute Eosinophilia has resolved
Continue prednisone 40 mg with plan to taper by 10 mg q7 days until finished
Amiodarone has been stopped. Additional unneeded medications stopped as well.
Hematology on board
# Constipation with likely overflow diarrhea presented as mucus faint stool
C. diff negative
Started Senokot-S, Miralax
s/p Dulcolax x1, s/p fleet enema x1 and constipation resolved
# Acute urinary Retention
# BPH
Per uro, maintain Sloan catheter - voiding trial as outpatient in w/n 1 week
Continue Finasteride in addition to patient's Tamsulosin
# History of angioedema on ZACHARY inhibitors
# orthostatic Hypotension
Started compression therapy
# CKD stage 3
Monitor BMP
SCr today at 1.6
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
Primary oncologist is Dr. Shin
Will need home oxygen assessment test prior to discharge. Now on room air
# Anemia secondary to chemotherapy and some heme dilution
# Chronic diastolic congestive heart failure
Cont Torsemide TTS with holding parameter
# IDDM
Mild hypoglycemia 9/5
decrease Lantus from 10 to 5 units HS
Stopped glipizide
informed pt to follow up with PCP outpt
# RBBB
# Sinus bradycardia
# History of profound bradycardia on metoprolol which was DC'd in December
# CAD s/p CABG KINCAID-LAD 04/2015. PCI LM and LCX 06/2015
# 09/2022 post cath with patent KINCAID to LAD and stent and no new obstructive CAD.
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
Continue Eliquis 2.5 mg twice daily, Plavix 75 mg daily
# Paroxysmal AFib
Continue Eliquis 2.5 mg twice daily
Amiodarone stopped in the setting of eosinophilia, appreciate ID and cardiology
Per cardiology, long-term AF management considerations (rate vs rhythm control as well as DOAC vs Watchman) can be further discussed as an outpatient.
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
# Former smoker
# Hypercholesterolemia
Continue Crestor
# Pin rolling tremor of R fingers
informed pt to have Parkinson's eval outpt
DVT PPx: Eliquis
Code Status: Full code
Dispo: pt now willing for SNF
DW RN
DW CM
Anticipated Discharge: Today
Subjective/Interval History
-
Date of Service: May 31, 2024
Objective Data
-
Labs:
Laboratory Results
05/31/24
05:24
WBC 12.0 H
Hgb 10.0 L
Hct 31.5 L
Plt Count 239
Sodium 142
Potassium 4.5
Chloride 103
Carbon Dioxide 24
BUN 60 H
Creatinine 1.6 H
Glucose 102 H
Calcium 9.8
Vital Signs:
Vital Signs
Temp Pulse Resp BP Pulse Ox
36.3 C 47 17 171/75 96
05/31/24 07:25 05/31/24 07:25 05/31/24 07:25 05/31/24 07:25 05/31/24 07:25
I&O
05/30/24 05/31/24 06/01/24
06:59 06:59 06:59
Intake Total 960 / 960 820 / 820 100 / 100
Output Total 2550 / 2550 450 / 450 925 / 925
Balance -1590 / -1590 370 / 370 -825 / -825
Review of Systems
-
All other systems: Reviewed and negative
Physical Exam
-
General: Well Developed, Well Nourished, Comfortable and Conversant
HEENT: Normocephalic
Respiratory: Clear to Auscultation and Non Labored Respirations; Negative Accessory Resp Muscle Use
Cardiac: Regular Rhythm and S1/S2
GI: Soft, Nontender, Nondistended and Normal Bowel Sounds
Neuro: Awake, Alert and Other (R fingers pin rolling tremor)
Psych: Calm and Intact Judgement/Insight
Data Reviewed
-
Labs: Labs Reviewed by me
[2024-05-31] MEDS: ELIQUIS 2.5 MG PO (10:11)
[2024-05-31] MEDS: FLOMAX 0.4 MG PO (10:11)
[2024-05-31] MEDS: VIBRAMYCIN 100 MG PO (10:11)
[2024-05-31] MEDS: DELTASONE 40 MG PO (10:11)
[2024-05-31] MEDS: PLAVIX 75 MG PO (10:11)
[2024-05-31] MEDS: SENOKOT-S 1 TABLET PO (10:11)
[2024-05-31] MEDS: PROSCAR 5 MG PO (10:11)
[2024-05-31] MEDS: GLUCOTROL XL (EXTENDED RELEASE) PO (10:12)
[2024-05-31] MEDS: MIRALAX 17 GRAMS PO (10:12)
[2024-05-31] MEDS: DEMADEX 20 MG PO (10:13)
[2024-05-31 11:44] LABS: Glucose - Point of Care 163 mg/dl (70-99)
--- NOTE | 2024-05-31 12:39 | W.PN.ONC2 ---
Today's Communication / Plan
-
IO therapy with my office will be rescheduled upon discharge from SNF to allow pt to optimize performance status prior to continuing therapy discussed with pt at bedside
Impression
Impression
Squamous Cell LC of the MICHEAL s/p SBRT, completed carbo/taxol 04/17/2024, currently on Keytruda
UTI/prostatitis
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
unclear if eosinophilia is related to immunotherapy - as IO can cause Eos to rise and keytruda just re-initiated 05/14 +/- amiodarone. Unclear if resolution of eosinophilia on 05/26 is 2/2 steroids started 05/25 or stopping amiodarone 05/24
OH
HFpEF
DM2
CKD
Plan
Plan
eosinophilia -amiodarone stopped and short course steroids -will need tight glucose control on steroids
diuretics and OAC per cardiology
abx per ID
Subjective/Objective
Chief Complaint
no new complaints
Subjective
no new complaints
Vital Signs:
Vital Signs
Temp Pulse Resp BP Pulse Ox
97.4 F 47 17 171/75 96
05/31/24 07:25 05/31/24 10:13 05/31/24 07:25 05/31/24 10:13 05/31/24 07:25
Lab Results:
Laboratory Data
WBC 12.0 10^3/uL (4.8-10.8) H 05/31/24 05:24
Hgb 10.0 g/dL (13.0-18.0) L 05/31/24 05:24
Plt Count 239 10^3/uL (130-400) 05/31/24 05:24
eGFR 42.75 05/31/24 05:24
Physical Exam
HEENT: Moist Mucous Membranes; No Jaundice
Cardiology: S1 and S2
Pulmonary: Clear
GI: Soft and Other (clear yellow urine)
Neuro: Non Focal
Review of Systems
Review of Systems
ROS notable for subjective, otherwise negative
--- NOTE | 2024-05-31 13:00 | W.DCSUMMARY ---
Discharge Summary
Discharge Data
Date of Admission: 05/21/24
Date of Discharge: 05/31/24
-
Pending Results: No
Hospital Course
Principal Diagnosis:
UTI with probable prostatitis.
Recurrent Hypereosinophilia (resolved)
Acute urinary Retention
Chronic Diagnoses:�
BPH
History of angioedema on ZACHARY inhibitors
Orthostatic Hypotension. Started compression therapy
Chronic kidney disease stage III
Lung cancer of left lobe, squamous cell carcinoma, chemoradiation September 2022
Anemia secondary to chemotherapy and some heme dilution
Chronic diastolic congestive heart failure
Insulin-dependent diabetes
Sinus bradycardia with right bundle branch block
Coronary artery disease status post bypass surgery KINCAID-LAD 04/2015. Previous cardiac stent LM and LCX 06/2015
History of ventricular tachycardia/ventricular fibrillation cardiac arrest 04/2015 underwent urgent CABG as above
Paroxysmal atrial fibrillation
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
Former smoker
Hypercholesterolemia, on Crestor
Consultations:�
Infectious disease
Diabetes nurse practitioner
Oncology
Urology
Cardiology
Procedures:�
None
Clinical course:�
This is a 83-year-old male, with past medical history as stated above, who presented with weakness.
Problem 1:
Generalized Weakness in setting of lung cancer.
He was discharged to SNF per PT recommendation
Problem 2:
UTI with probable prostatitis.
His urine culture grew E coli.
He initially received Zosyn, then fosfomycin.
He can continue 4 weeks doxycycline 100 mg twice daily for probable prostatitis due to E. coli .
Problem 3:
Recurrent Hypereosinophilia.
His prior to admission amiodarone was stopped (due to possible side effect of hypereosinophilia).
He was started with empiric oral prednisone and he is absolute eosinophilia resolved.
He can continue with prednisone 40 mg with plan to taper by 10 mg every 7 days until finished.
Problem 4:
Constipation with likely overflow diarrhea presented as mucus faint stool.
This resolved after treatment of his constipation with bowel regimen.
Problem 5:
Acute urinary Retention.
He was seen by urology and was placed on Sloan catheter.
He can follow-up with urology outpatient for voiding trial.
Problem 6:
Pin rolling tremor of R fingers
He has been informed to have Parkinson's eval outpatient.
Problem 7:
Insulin-dependent diabetes with mild hypoglycemia on 05/31/2024.
His prior to admission Lantus was decreased from 10 to 5 units at bedtime. His glipizide was stopped.
He can follow-up with his PCP for blood glucose monitoring and management.
As for the rest of his medical problems, they were stable during his hospital stay.
Discharge Plan
-
Patient Disposition: Longterm/SNF
Discharge Diagnosis/Procedures: Generalized Weakness in setting of Cancer;
Probable prostatitis;
Recurrent Hypereosinophilia (resolved);
Constipation (resolved) with likely overflow diarrhea;
Acute urinary Retention in setting of BPH;
Chronic diastolic congestive heart failure;
insulin dependent diabetes
Condition: Fair
Diet: As tolerated, Low Fat, Low Cholesterol, Low Sodium and Diabetic, Carb Controlled
Activity: As tolerated
Driving Restrictions: No driving
Wound Care: Wound Care Instructions:
L buttock and L knee: clean with soap and water, silicone foam change q 3 days and prn soilage.
air cushion when sitting.
Follow up at wound care center if not healing, call for an appointment.
Activity Restrictions/Additional Instructions:
Continue Sloan catheter and follow up with urology for voiding trial in 1 week.
Continue compression therapy for orthostatic hypotension.
Referrals:
Ariel Tsang MD [Active] -
(Please call Dr. Tsang's office at [phone] to schedule removal of your Sloan catheter 7-10 days after your discharge from the hospital.
Dr. Tsang will also schedule you for a preop discussion to address prostate surgery in the coming weeks.)
Renato Blackburn MD [Active] - 06/20/24 2:00 pm (You have a follow up visit with Dr. Blackburn at the [place] office. Please call with questions. )
Olvin Mcgrath MD [Active] - 06/01/24
(As scheduled
PSG arrangement at discharge)
Rodrigo Villa DO [Family Provider] -
Additional Discharge Medication Instructions: We have stopped amiodarone.
Continue doxycycline 100 mg PO twice daily for 3 more weeks (avoid dairy products and sun exposure while on doxycycline);
OK to resume methenamine after doxycycline.
Continue prednisone 40 mg and taper by 10 mg every 7 days until finished.
Continue Torsemide Tues/Thues/Sat with holding parameter for your heart failure.
Decrease Lantus from 10 units to 5 units. Stop glipizide for now.
Prescriptions:
New
finasteride 5 mg Tablet
5 mg PO DAILY Qty: 30 0RF
torsemide 20 mg Tablet
20 mg PO TuThSa@0800 Qty: 60 0RF
doxycycline hyclate 100 mg Capsule
100 mg PO Q12 21 Days Qty: 42 0RF
prednisone 10 mg Tablet
See Rx Instructions .ROUTE .COMPLEX Qty: 60 0RF
Rx Instructions:
Take By Mouth:
40 mg daily x3 days, 30 mg daily x7 days, 20 mg daily x7 days, 10 mg daily x7 days.
Continued
rosuvastatin [Crestor] 40 MG tablet
40 mg PO HS
tamsulosin 0.4 mg Capsule
0.4 mg PO BID
azelastine 137 mcg (0.1 %) Aerosol,[place]
1 spray INTRANASAL BIDPRN PRN (Reason: congestion)
Eliquis 2.5 mg Tablet
2.5 mg PO BID Qty: 60 0RF
psyllium Packet
1 packet PO HS
clopidogrel 75 mg Tablet
75 mg PO DAILY
Mucinex DM 30-600 mg Tablet Extended Release 12 Hr
1 tab PO [id number] PRN (Reason: congestion) Qty: 0
cholecalciferol (vitamin D3) 50 mcg (2,000 unit) Tablet,Chewable
100 mcg PO HS
Ultimate Mena Probiotic 30 billion cell Capsule,Delayed Release(Dr/Ec)
1 cap PO DAILY
acetaminophen [Tylenol] 325 mg Tablet
650 mg PO Q6HPRN PRN (Reason: mild pain)
ammonium lactate 12 % Lotion
1 applic TOPICAL DAILYPRN PRN (Reason: dry skin on legs)
triamcinolone acetonide 0.1 % Ointment
1 applic TOPICAL BIDPRN PRN (Reason: rash on buttocks)
Changed
insulin glargine [Lantus Solostar U-100 Insulin] 100 unit/mL (3 mL) insulin pen
5 unit SC DAILY@1900 Qty: 0 0RF
Discontinued
glipizide 5 mg Tablet Extended Release 24hr
5 mg PO BID
amiodarone [Pacerone] 200 mg tablet
200 mg PO HS
torsemide 20 mg tablet
20 mg PO SUTUWETHFR
Discharge Orders:
Discharge Patient (As Directed); Ordered 05/31/24
Ordered By: Danitza Santiago
Discharge Date and Time
Discharge Date/Time: 05/31/24 13:37
Print Language: KAZAKH
[2024-05-31 13:30] VITALS: BP 96/51
--- NOTE | 2024-06-02 04:44 | PTCARENOTE ---
05/22/24 @9383; instructed VJ Taylor on manual BP=78/38 on left arm.Pt oriented ,denies SOB/CP.Received orders for stat CBC/IV bolus/midodrine and administered.Instructed pt to remain in bed and to use urinal.
== END 2024-05-31 13:37 | DRG 181 ==
LOC: 3 WEST ACU 20:08
PROVIDERS: Nurse Practitioner Gerontology; Physician Assistant; ADMITTING PHYSICIAN Hospitalist; ATTENDING PHYSICIAN Internal Medicine; CONSULT PHYSICIAN Internal Medicine; CONSULT PHYSICIAN Internal Medicine Cardiovascular Disease; CONSULT PHYSICIAN Internal Medicine Gastroenterology; CONSULT PHYSICIAN Specialist; EMERGENCY PHYSICIAN Emergency Medicine; FAMILY PHYSICIAN Family Medicine; OTHER PHYSICIAN Internal Medicine Hematology & Oncology; OTHER PHYSICIAN Student in an Organized Health Care Education/Training Program
DX: C34.12 Malignant neoplasm of upper lobe, left bronchus or lung (principal); D84.821 Immunodeficiency due to drugs; N39.0 Urinary tract infection, site not specified; I50.32 Chronic diastolic (congestive) heart failure; I13.0 Hypertensive heart and chronic kidney disease with heart failure and stage 1 through stage 4 chronic kidney disease, or unspecified chronic kidney disease; I47.20 Ventricular tachycardia, unspecified; N17.9 Acute kidney failure, unspecified; N41.9 Inflammatory disease of prostate, unspecified; R53.1 Weakness; E78.00 Pure hypercholesterolemia, unspecified; N18.31 Chronic kidney disease, stage 3a; I25.10 Atherosclerotic heart disease of native coronary artery without angina pectoris; I48.0 Paroxysmal atrial fibrillation; I71.40 Abdominal aortic aneurysm, without rupture, unspecified; E11.51 Type 2 diabetes mellitus with diabetic peripheral angiopathy without gangrene; D64.81 Anemia due to antineoplastic chemotherapy; J43.9 Emphysema, unspecified; E11.22 Type 2 diabetes mellitus with diabetic chronic kidney disease; E11.649 Type 2 diabetes mellitus with hypoglycemia without coma; I45.10 Unspecified right bundle-branch block; R09.02 Hypoxemia; G47.33 Obstructive sleep apnea (adult) (pediatric); D72.10 Eosinophilia, unspecified; N40.1 Benign prostatic hyperplasia with lower urinary tract symptoms; T45.1X5A Adverse effect of antineoplastic and immunosuppressive drugs, initial encounter; K59.00 Constipation, unspecified; R25.1 Tremor, unspecified; R19.5 Other fecal abnormalities; I95.1 Orthostatic hypotension; J98.4 Other disorders of lung; R19.7 Diarrhea, unspecified; B96.20 Unspecified Escherichia coli [E. coli] as the cause of diseases classified elsewhere; R33.8 Other retention of urine; I25.2 Old myocardial infarction; Z95.1 Presence of aortocoronary bypass graft; Z87.891 Personal history of nicotine dependence; Z95.5 Presence of coronary angioplasty implant and graft; Z87.440 Personal history of urinary (tract) infections; Z88.2 Allergy status to sulfonamides; Z88.8 Allergy status to other drugs, medicaments and biological substances; Z88.1 Allergy status to other antibiotic agents; Z91.041 Radiographic dye allergy status; Z79.02 Long term (current) use of antithrombotics/antiplatelets; Z79.84 Long term (current) use of oral hypoglycemic drugs; Z79.01 Long term (current) use of anticoagulants; Z92.21 Personal history of antineoplastic chemotherapy; Z92.3 Personal history of irradiation; Z86.74 Personal history of sudden cardiac arrest; Z86.79 Personal history of other diseases of the circulatory system; Z79.69 Long term (current) use of other immunomodulators and immunosuppressants; Z79.4 Long term (current) use of insulin
CPT/HCPCS: 51701; 70450; 71046; 74018; 74176; 80048; 80053; 81003; 81015; 82607; 82962; 83036; 83735; 84484; 85025; 85027; 86850; 86900; 86901; 87040; 87045; 87046; 87077; 87086; 87186; 87324; 87427; 87449; 89055; 93005; 96361; 96365; 97116; 97162; 97166; 97530; 97535; 99285

== ENCOUNTER → 2024-06-21 09:18 | Outpatient (REF) | payer MEDICARE, OTHER, SELFPAY | LOC: RAD 09:18 | PROVIDERS: ATTENDING PHYSICIAN Physician Assistant; FAMILY PHYSICIAN Family Medicine; REFERRING PHYSICIAN Registered Nurse | DX: I77.9 Disorder of arteries and arterioles, unspecified (principal); I71.40 Abdominal aortic aneurysm, without rupture, unspecified; I73.9 Peripheral vascular disease, unspecified; I25.10 Atherosclerotic heart disease of native coronary artery without angina pectoris | CPT/HCPCS: 76770; 93880; 93922; 93925 ==

== ENCOUNTER 2024-07-02 16:26 | Inpatient (IN) | payer MEDICARE, OTHER, SELFPAY ==
[2024-07-02] VITALS (11 sets, daily range): BP systolic 93–166; BP diastolic 53–83; BMI 27.7; BMI 26.3
[2024-07-02 11:58] LABS: % Basophils 0.2 % (0-2); % Eosinophils 6.4 % (0-6); % Immature Granulocytes 0.9 % (0-0.5); % Lymphocytes 6.8 % (20.5-51.1); % Monocytes 13.4 % (1.7-9.3); % Neutrophils 72.3 % (42.2-75.2); Absolute Eosinophils 0.4 10^3/uL (0-0.7); Absolute Immature Granulocytes 0.1 10^3/uL (0-0.05); Absolute Lymphocytes 0.5 10^3/uL (1.2-3.4); Absolute Monocytes 0.9 10^3/uL (0.1-0.6); Absolute Neutrophils 4.8 10^3/uL (1.4-6.5); Hematocrit 25.8 % (39.0-52.0); Hemoglobin 8.6 g/dL (13.0-18.0); Mean Corp Hgb Conc. 33.3 g/dL (33.0-37.0); Mean Corpuscular Hgb 30.7 pg (27.0-31.0); Mean Corpuscular Volume 92.1 fL (80.0-94.0); Mean Platelet Volume 9.3 fL (7.4-10.4); Nucleated Red Blood Cells % 0 % (-); Platelet Count 196 10^3/uL (130-400); Red Cell Dist. Width 14.9 % (11.5-14.5); White Blood Cell Count 6.6 10^3/uL (4.8-10.8)
[2024-07-02 12:18] LABS: ALT (SGPT) 11 U/L (0-50); AST (SGOT) 16 U/L (17-59); Albumin 1.6 g/dl (3.5-5.0); Alkaline Phosphatase 72 U/L (38-126); Blood Urea Nitrogen 35 mg/dl (9-20); Calcium 8.8 mg/dl (8.4-10.2); Carbon Dioxide 25 mmol/L (22-30); Chloride 100 mmol/L (98-107); Estimated Creatinine Clearance 32 ml/min; Glucose 166 mg/dl (70-99); Potassium 4.8 mmol/L (3.5-5.1); Sodium 133 mmol/L (135-145); Total Bilirubin 0.2 mg/dl (0.2-1.3); Total Protein 5.7 g/dl (6.3-8.2); eGFR 34.79
--- NOTE | 2024-07-02 13:11 | ED.GENMED ---
History of Present Illness
General
Chief Complaint: Weakness
Source: patient
Time Seen by Provider: 07/02/24 12:38
History of Present Illness
History of Present Illness:
83-year-old male presents to the emergency room from [facility] facility for weakness. Patient noted to be unable to tolerate physical therapy today. He was noted to have orthostatic hypotension. Patient also hypoxic on room air. Patient
denies any chest pain. He is not subjectively short of breath.
Past History
Past History
ED Past Medical History: CAD, HTN, Hypercholesterolemia, Renal failure, Other (BPH, urinary retention), Other (Peripheral arterial disease) and Other (V tach/V-fib arrest, [place], CAD, CABG, PCI LM and LCx 06/2015, A-fib, PVD with multiple peripheral
interventions including bypass, AAA)
ED Past Surgical History: Cardiac (CABG x 26 Apr 2015, Bilateral carotid endarterectomies 2018, ), Cholecystectomy and Other (Vascular lower extremity bypass)
Social History
Tobacco: Former smoker
Alcohol: None
Drug: None
Personal:
Living: with family
Phy Exam
Physical Exam
Physical Exam:
General: Awake, Alert, Oriented X3. Appears chronically ill
Vitals: unremarkable
Head: Atraumatic
Eyes: Pupils equal, EOMI
Throat: Airway intact, no exudates
Neck: Trachea midline
Lungs: Decreased breath sounds bilaterally
Heart: Regular rate, no murmurs
Abd: Soft, Nontender, No pulsatile mass
Neuro: Nonfocal
Skin: Warm, dry, no rash
Extremities: pulses equal b/l, no edema
Course
Orders/Labs/Results
Orders:
Orders
07/02/24 11:22
EKG [Electrocardiogram (*1)] Urgent
Reason for Study: Fatigue / Weakness
EKG- Treatment ONCE
07/02/24 11:46
CBC/With Diff [Complete Blood Count/With Diff] Urgent
CMP [Comprehensive Metabolic Panel] Urgent
07/02/24 13:08
0.9% Sodium Chloride 500 ml [Nss] 500 ml IV BOLUS
07/02/24 13:14
CR Chest - 2 Views Urgent
Comment:
Reason For Exam: sob
07/02/24 13:56
COVID-19 Antigen Urgent
Source: Nasal Swab
Urinalysis Reflex To Culture Urgent
Date Specimen was Collected: 07/02/24
Time Specimen was Collected: 13:35
Urine Microscopic Reflex Cult Urgent
Urine Culture Urgent
RADHA Source: U
Specimen Description:
Date Specimen was Collected: 07/02/24
Time Specimen was Collected: 13:35
07/02/24 13:59
Straight cath- Treatment ONCE
07/02/24 14:58
Piperacillin/Tazo 3.375 Gram [Zosyn] 3.375 gram in 50 ml IV NOW
07/02/24 16:01
Admit/Transfer Patient As Directed
Co-Sign Provider:
Level of Care: Inpatient admission
Assign to:: Telemetry
Physician / Group: haley
Diagnosis: UTI
Reason for Telemetry: Arrhythmia
Date to Stop Telemetry: 07/05/24
Time to Stop Telemetry: 11:00
Reason for Hospitalization: UTI
Expected length of stay greater than two midnights?: Yes
ELOS- Estimated Length of Stay in days: 3
I certify the patient meets the requirements for IP care: Yes
07/02/24 16:02
PRN Pain Medication Management As Directed
May give lesser potent ordered pain med per pt: Yes
preference::
Protocol:: Medication orders for pain may be administered in a
manner that supports deferring to patient preference
when the pt is:
- Requesting an ordered lesser potent pain medication.
Least to most potent pain medications are defined
as: acetaminophen < NSAID < tramadol < opioids
(morphine, oxycodone, hydromorphone).
- Requesting a lesser dose of the same medication IF
ORDERED.
- Requesting a less intrusive route of administration
if both routes are prescribed by the provider (PO <
IV).
07/02/24 16:04
Code Status As Directed
Resuscitation Status: Full Code
07/02/24 20:17
Acetaminophen [Tylenol] 650 mg PO Q4HPRN PRN
Apixaban [Eliquis] 2.5 mg PO BID
Bisacodyl [Dulcolax] 10 mg RECTAL [id number] PRN
Dextrose 50%-Water [Dextrose 50% Syringe] 12.5 grams IV [id number] PRN
Docusate W/Senna [Senokot-S] 1 tablet PO BIDPRN PRN
Glucagon [GlucaGen] 1 mg IM PRN PRN
Insulin Aspart Corrective Low [Novolog Flexpen-Low Resistance] See Protocol SC AC
Ipratropium/Albuterol Sulfate [Duoneb] 3 ml INH R Q4HPRN PRN
Polyethylene Glycol Powder [Miralax] 17 grams PO DAILYPRN PRN
Ranolazine Extended Release [Ranexa Extended Release] 500 mg PO BID
Saccharomyces Boulardii [Florastor] 250 mg PO BID
Triamcinolone Ointment [Triamcinolone 0.1% Ointment] See Dose Instructions TOPICAL BIDPRN PRN
insulin glargine [Lantus Solostar U-100 Insulin] 10 unit SC DAILY@1900
07/02/24 20:17
Activity As Directed
Activity Level: As Tolerated
Bedside Glucose Monitoring As Directed
Frequency: AC&HS
Additional Instructions:: Change to q6h if pt on TPN, tube feeding or not eating
Intake/ Output As Directed
Frequency: Per unit guidelines
Vital Signs As Directed
Frequency: Per unit guidelines
Weight As Directed
Frequency: Daily
O2 Therapy [RESP] Routine
Titrate/Wean O2 to maintain O2 sat greater than (%): 92
07/02/24 21:00
Midodrine [ProAmatine] 10 mg PO TID @ 0800,1200,1700
07/02/24 22:00
CefTRIAXone [Rocephin] 1,000 mg IV Q24H
07/03/24 Breakfast
2000 calorie (17 carb) Diabetic
At Your Request: Full Participation
Does patient need a safe tray?: No
Occupational Therapy Consult [Ot Eval And Treat] IN AM
Physical Therapy Consult [Pt Eval And Treat] IN AM
Activity Level: As Tolerated
07/03/24 06:03
Basic Metabolic Panel IN AM
Complete Blood Count/No Diff IN AM
Glycohemoglobin (HgbA1c) IN AM
07/03/24 08:00
Clopidogrel Bisulfate [Plavix] 75 mg PO DAILY
Docusate Sodium [Colace] 100 mg PO DAILY
Finasteride [Proscar] 5 mg PO DAILY
Lactobac/Bifidobac [Visbiome] 1 cap PO DAILY
Rosuvastatin Calcium [Crestor] 5 mg PO DAILY
Tamsulosin [Flomax] 0.4 mg PO DAILY
07/04/24 06:00
Basic Metabolic Panel IN AM
Complete Blood Count/No Diff IN AM
07/05/24 06:00
Basic Metabolic Panel IN AM
Complete Blood Count/No Diff IN AM
07/05/24 11:00
DC Protocol for Telemetry ONCE
07/06/24 06:00
Basic Metabolic Panel IN AM
Complete Blood Count/No Diff IN AM
07/07/24 06:00
Basic Metabolic Panel IN AM
Complete Blood Count/No Diff IN AM
Abnormal Lab Results
07/02/24 07/02/24
11:46 13:56
RBC 2.80 L 10^6/uL
(4.70-6.10)
Hgb 8.6 L g/dL
(13.0-18.0)
Hct 25.8 L %
(39.0-52.0)
RDW 14.9 H %
(11.5-14.5)
Abs Immat Gran (auto) 0.1 H 10^3/uL
(0-0.05)
Absolute Lymphs (auto) 0.5 L 10^3/uL
(1.2-3.4)
Absolute Monos (auto) 0.9 H 10^3/uL
(0.1-0.6)
Immature Gran % 0.9 H %
(0-0.5)
Lymphocytes % 6.8 L %
(20.5-51.1)
Monocytes % 13.4 H %
(1.7-9.3)
Eosinophils % 6.4 H %
(0-6)
Sodium 133 L mmol/L
(135-145)
BUN 35 H mg/dl
(9-20)
Creatinine 1.9 H mg/dL
(0.7-1.3)
Glucose 166 H mg/dl
(70-99)
AST 16 L U/L
(17-59)
Total Protein 5.7 L g/dl
(6.3-8.2)
Albumin 1.6 L g/dl
(3.5-5.0)
Leukocyte Esterase Rfl 2+ A
(Negative)
Urine RBC 3-6 A /HPF
(0-2)
Urine WBC (Reflex) >100 A /HPF
(0-5)
Urine Bacteria (Reflex) Many A
(Negative)
07/02/24 11:46
07/02/24 11:46
Vital Signs
Initial and Last Documented VS:
Initial Vital Signs
BP
93/53
07/02/24 11:23
Last Documented Vital Signs
Temp Pulse Resp BP Pulse Ox
97.9 F 66 18 128/62 94
07/03/24 06:01 07/03/24 06:01 07/03/24 06:01 07/03/24 06:01 07/03/24 06:01
MDM/Problems Addressed
Differential Diagnosis Includes:
Pneumonia, urinary tract infection, renal failure, dehydration
MDM/Problems Addressed:
Patient presents with progressive fatigue. He has a history of frequent urinary tract infections. He is also treatment for lung cancer with Keytruda. His labs are remarkable for mild anemia. His hemoglobin has dropped a gram and a half from
May 31 but not at a level requiring transfusion. Creatinine is up a bit from last measurement. Currently 1.9. Patient's chest x-ray has chronic findings which appear unchanged to the radiologist when compared to previous. Given this however
it certainly possible there could be a infiltrate to be difficult to identify. Patient does have a cough. In addition his urinalysis shows greater than 100 WBCs per high-power field. Unclear if the patient is colonized and this is a chronic
finding but given his worsening weakness and relative hypoxia compared to baseline will cover with IV antibiotics.
*Radiology
Radiology exam reviewed: radiology read reviewed
*Pulse Oximetry
Patient hypoxic: yes
*EKG
Interpreted by ED Provider?: Yes
Interpretation: abnormal
Heart Rate: 68
Rate: normal
Rhythm: sinus
Interval: first degree heart block
QRS Pattern: right bundle branch block
Ischemia: non-specific ST changes
*Sort Worker Interpretation
Rate: normal
Interpretation: normal
Rhythm: sinus
*Critical Care Note
Total Time (30-74mins, 75-104mins- exclusive of procedures): Not Applicable
Data Reviewed
Review of Other/Old Records Reveals: Labs (From most recent hospitalization) and Discharge Summary (From most recent hospitalization)
Patient Management
Social determinants of health affecting care: Living situation
ED Attending Note
-
Portions of this chart may have been created with voice recognition software.� Occasional wrong word or��sound alike� substitutions may have occurred due to the inherent limitations of voice recognition software.
Discharge Plan
Departure
Patient Disposition: Admit
Date of Disposition: 07/02/24
Time of Disposition: 15:02
Presentation/result/management discussed w/ accepting MD/DO: Hospitalist
Condition: Fair
Discharge Problem:
Acute UTI
Interventions
Interventions:
*Risk Screen - Suicide Last Done: 07/02/24 11:24
*General Assessment Last Done: 07/02/24 11:24
*Neglect/Abuse Screening Last Done: 07/02/24 11:24
ED- Fall Risk Assessment Last Done: 07/02/24 12:08
*ED COVID-19 Vaccine History Last Done: 07/02/24 11:24
*Nursing Disposition Last Done: 07/02/24 19:49
ED- Cardiac Assessment Last Done: 07/02/24 12:08
ED- Neurological Assessment Last Done: 07/02/24 12:08
ED- Pulmonary Assessment Last Done: 07/02/24 12:08
Discharge Date and Time
Discharge Date/Time: 07/02/24 19:49
[2024-07-02] MEDS: NSS 500 IV (13:37)
[2024-07-02 14:14] LABS: Urine Albumin Trace (Neg - Trace); Urine Bilirubin Negative (Negative); Urine Character Clear (Clear); Urine Color Yellow; Urine Glucose Negative (Negative); Urine Ketone Negative (Negative); Urine Leukocyte 2+ (Negative); Urine Nitrite Negative (Negative); Urine Occult Blood Negative (Negative); Urine Specific Gravity 1.015 (<1.030); Urine Urobilinogen Negative (Neg - 1+)
[2024-07-02 14:22] LABS: Urine Bacteria Many (Negative); Urine Squamous Cell 0-2 /LPF (Few)
[2024-07-02 14:23] LABS: Urine White Cell >100 /HPF (0-5)
[2024-07-02 14:24] LABS: COVID-19 Antigen Negative (Negative)
[2024-07-02] MEDS: ZOSYN 50 IV (15:12)
--- NOTE | 2024-07-02 15:31 | HPS.HSE ---
Family Physician
-
Family Physician: Rodrigo Villa
Chief Complaint
-
fall
generalized weakness
History of Present Illness
83-year-old with PMH for CHF,atrial fib, CAD, carotid disease, PAD< BPH, DM, AAA, RBB presented to us s/p fall today at the [place]. patient denied hitting his head. he fell on his buttocks. moving his extremity without any difficulty. patient stated
weak, off balance today. he was noted hypoxic at [place].patient denied chest pain, sob.denied fever, chills, runny nose, congestion. denied abdominal pain,n,v,d. denied dysuria or hematuria.
positive UA. received iv abx in ER. admitting for further management.
Medical History
Past Medical History
Past Medical History: Reports Other
Additional Past Medical History:
atrial fib
CAD
CKD
pAD
BPH
CHF
DM
AA
RBBB
HTN
Past Surgical History: Reports Other
Additional Past Surgical History:
fempop bypass surgery
CABG
cardiac stent
vein stripping and vein replacement
cholecystectomy
b/l CEA
Social History
Tobacco: Non-smoker
Alcohol: None
Drug: None
Personal: Single
Living: Senior Living
Family History
Family History: Not pertinent
Allergies / Home Medications
Allergies reflects when Allergies were last updated in [email or web address].
Home Medications with original date entered in [email or web address]
Allergy/Medication List:
Allergies
Allergy/AdvReac Type Severity Reaction Status Date / Time
ZACHARY Inhibitors Allergy Shortness Verified 07/02/24 11:22
of
Breath-possible
angioedema-pharm
to review
Cephalosporins Allergy Eosinophili Verified 07/02/24 11:22
a
Iodinated Contrast Media Allergy affected Verified 07/02/24 11:22
[Iodinated Contrast Media - kidneys
Oral and]
sulfamethoxazole Allergy Rash Verified 07/02/24 11:22
[From Bactrim]
trimethoprim [From Bactrim] Allergy Rash Verified 07/02/24 11:22
Home Medications
tamsulosin 0.4 mg capsule 0.4 mg PO DAILY Urinary issue 07/15/22
azelastine 137 mcg (0.1 %) nasal spray 1 spray intranasal BIDPRN PRN congestion 09/14/23
apixaban 2.5 mg tablet (Eliquis) 2.5 mg PO BID #60 tabs 12/03/23
Lactobacillus-Bifidobacterium 30 billion cell capsule,delayed release (Ultimate Mena Probiotic) 1 cap PO DAILY Gastrointestinal Issue 01/05/24
clopidogrel 75 mg tablet 75 mg PO DAILY Blood Clot Prevention/Tx 01/05/24
dextromethorphan-guaifenesin 30 mg-600 mg tablet extended cxtoclx23 hr (Mucinex DM) 1 tab PO [id number] PRN congestion ##0 01/05/24
psyllium 1 packet PO HS constipation 01/05/24
acetaminophen 325 mg tablet (Tylenol) 650 mg PO Q4HPRN PRN mild pain 05/21/24
ammonium lactate 12 % lotion 1 applic topical DAILYPRN PRN B/L legs 05/21/24
triamcinolone acetonide 0.1 % topical ointment 1 applic topical BIDPRN PRN rash on buttocks 05/21/24
finasteride 5 mg tablet 5 mg PO DAILY #30 tabs 05/30/24
Saccharomyces boulardii 250 mg capsule (Florastor) 250 mg PO BID 07/02/24
acetaminophen 500 mg tablet (Tylenol Extra Strength) 500 mg PO TID 07/02/24
bisacodyl 10 mg rectal suppository (Dulcolax (bisacodyl)) 10 mg IN DAILYPRN PRN IF NO BM AFTR MOM 07/02/24
coQ10 (ubiquinol) 100 mg capsule 100 mg PO DAILY 07/02/24
docusate sodium 100 mg capsule (Colace) 100 mg PO DAILY 07/02/24
insulin aspart U-100 100 unit/mL subcutaneous solution 10 sliding scale dose SC AC 07/02/24
insulin glargine 100 unit/mL (3 mL) subcutaneous pen (Lantus Solostar U-100 Insulin) 10 unit SC DAILY@1900 Diabetes 07/02/24
magnesium hydroxide 400 mg/5 mL oral suspension (Milk of Magnesia) 2,400 mg PO DAILYPRN PRN IF NO BM IN 2/3 DAYS 07/02/24
methenamine hippurate 1 gram tablet (Hiprex) 1 g PO DAILY 07/02/24
midodrine 10 mg tablet 10 mg PO TID 07/02/24
mupirocin 2 % topical ointment 1 applic topical DAILY BUTTOCKS 07/02/24
ranolazine 500 mg tablet,extended release,12 hr 500 mg PO BID 07/02/24
rosuvastatin 5 mg tablet (Crestor) 5 mg PO DAILY 07/02/24
sodium phosphates 19 gram-7 gram/118 mL enema (Fleet Enema) 118 ml IN DAILYPRN PRN IF NO BM AFTR DULCOLAX 07/02/24
torsemide 20 mg tablet 10 mg PO DAILYPRN PRN WEIGHT GAIN 07/02/24
Review of Systems
-
Constitutional: Reports No Symptoms
EENT: Reports No Symptoms
Respiratory: Reports No Symptoms
Cardiac: Reports No Symptoms
Abdomen/GI: Reports No Symptoms
: Reports No Symptoms
Musculoskeletal: Reports No Symptoms
Skin: Reports No Symptoms
Neurological: Reports Weakness
Endocrine: Reports No Symptoms
Hematologic/Lymphatic: Reports No Symptoms
Psych: Reports No Symptoms
Physical Exam
Vital Signs
Vital Signs
Temp Pulse Resp BP Pulse Ox
98.0 F 60 17 98/61 97
07/02/24 11:24 07/02/24 13:45 07/02/24 13:45 07/02/24 13:00 07/02/24 13:45
Physical Exam
General: Well Developed, Well Nourished and No Apparent Distress
HEENT: NormoCephalic, Moist mucous membranes and Atraumatic
Respiratory: Decreased Breath Sounds
Cardiac: S1/S2 and Regular Rhythm; No Murmur or Rub
GI: Soft, Non Tender, Non Distended and Normal Bowel Sounds; No Organomegaly
Rectal: Deferred by Provider
Musculoskeletal: No Clubbing, No Cyanosis and No Edema
Skin: Rash, Decubitus Ulcers and Other
Neuro: AO x 3 and Nonfocal/grossly intact
Psych: Calm
Laboratory Results
-
07/02/24 11:46
07/02/24 11:46
Laboratory Results
Total Bilirubin 0.2 mg/dl (0.2-1.3) 07/02/24 11:46
AST 16 U/L (17-59) L 07/02/24 11:46
ALT 11 U/L (0-50) 07/02/24 11:46
Alkaline Phosphatase 72 U/L (38-126) 07/02/24 11:46
Data Reviewed
-
Diagnostic Radiology: Report Reviewed by me
Lab Data: Labs Reviewed by me
Impression/Plan
-
#acute on chronic hypoxic respiratory failure unclear likely from lung ca
-chest x ray with gain seen are diffusely increased interstitial opacities bilaterally with more confluent appearance within the left apical and basilar segments. No new areas of airspace disease. No pleural effusions or pneumothorax.
-continue supplemental oxygen to keep sat >92
-wean as tolerated
-obtain CT of chest
-ctm
#Urinary tract infection
#hxt of E coli UTI
-ceftriaxone continued
#generalized weakness/fall likely from metastatic disease/UTI
-PT/OT consult
#anemia of chronic disease
-hgb stable at 8.6
-no active bleeding
-ctm
#CKD stage 3b
-cr 1.9
-ctm
#type 2 Dm
-sliding scale
-CHO diet
-lantus 10u at hs
# History of angioedema on ZACHARY inhibitors
# orthostatic Hypotension
-midodrine continued
# CKD stage 3
Monitor BMP
# Lung cancer of left lobe, squamous cell carcinoma
-Primary oncologist is Dr. Shin
-s/p SBRT, completed carbo/taxol 04/17/2024
-was on Keytruda
# Chronic diastolic congestive heart failure
-hold torsemide
-Ranexa continued
# RBBB
# Paroxysmal AFib
-EKG with NSR with right BBB
# CAD s/p CABG KINCAID-LAD 04/2015. PCI LM and LCX 06/2015
# 09/2022 post cath with patent KINCAID to LAD and stent and no new obstructive CAD.
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
-Continue Eliquis 2.5 mg twice daily, Plavix 75 mg daily
#BPH
-Flomax,finasteride continued
# COPD/Emphysema
# Former smoker
# Hypercholesterolemia
-Continue Crestor
DVT PPx: Eliquis
Code Status: Full code
--- NOTE | 2024-07-02 16:14 | W.PN.UPDATE ---
Update Note
Progress Note Update
This is an addendum to the H&P written by Jennifer Ventura on 07/02/2024. Patient seen and examined independently with [employer].
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 coli UTI, CKD 3, orthostatic hypotension, HFpEF, angioedema, BPH, urinary retention, type 2 diabetes, sinus
bradycardia with regular branch block, CAD status post CABG, ventricular tachycardia/ventricular fibrillation, paroxysmal atrial fibrillation on Eliquis,, COPD, former smoker, hypercholesteremia, hypereosinophilia, presenting with ongoing weakness
for the past several months associate with occasional dizziness and a fall today.
Patient hypoxemic requiring 2 L oxygen although no shortness of breath.
Urinalysis suggesting UTI with greater than 100 WBC. COVID-negative. Chest x-ray shows previously present diffusely increased interstitial opacities with confluent appearance in the left apical/basilar segments.
Some degree of fatigue could be secondary to UTI. Check urine culture, ceftriaxone. Will check CT chest to evaluate for progression of lung cancer/pneumonitis which could have been from Keytruda. PT/OT.
[2024-07-02] MEDS: NOVOLOG FLEXPEN-LOW RESISTANCE SC (21:00)
[2024-07-02 21:19] LABS: Glucose - Point of Care 144 mg/dl (70-99)
[2024-07-02] MEDS: FLORASTOR 250 MG PO (21:21)
[2024-07-02] MEDS: ELIQUIS 2.5 MG PO (21:21)
[2024-07-02] MEDS: RANEXA EXTENDED RELEASE 500 MG PO (21:23)
[2024-07-02] MEDS: LANTUS 0.1 UNITS SC (21:23)
[2024-07-02] MEDS: ProAmatine PO (21:30)
[2024-07-02] MEDS: STERILE WATER FOR INJECTION 10 ML IV (22:50)
[2024-07-02] MEDS: ROCEPHIN 1000 MG IV (22:51)
[2024-07-03] VITALS (9 sets, daily range): BP systolic 77–150; BP diastolic 48–74; PULSE 60–69; O2SAT 98; BMI 25.9
[2024-07-03] MEDS: FLUSH (NSS) 1 FLUSH IV (00:09)
[2024-07-03 06:24] LABS: Hematocrit 26.5 % (39.0-52.0); Hemoglobin 8.7 g/dL (13.0-18.0); Mean Corp Hgb Conc. 32.8 g/dL (33.0-37.0); Mean Corpuscular Hgb 29.5 pg (27.0-31.0); Mean Corpuscular Volume 89.8 fL (80.0-94.0); Mean Platelet Volume 9.6 fL (7.4-10.4); Platelet Count 227 10^3/uL (130-400); Red Blood Cell Count 2.95 10^6/uL (4.70-6.10); Red Cell Dist. Width 14.9 % (11.5-14.5)
[2024-07-03 06:47] LABS: Blood Urea Nitrogen 33 mg/dl (9-20); Calcium 8.8 mg/dl (8.4-10.2); Carbon Dioxide 25 mmol/L (22-30); Chloride 102 mmol/L (98-107); Estimated Creatinine Clearance 38 ml/min; Glucose 139 mg/dl (70-99); Potassium 4.6 mmol/L (3.5-5.1); Sodium 135 mmol/L (135-145); eGFR 42.75
[2024-07-03 07:10] LABS: Glucose - Point of Care 140 mg/dl (70-99)
--- NOTE | 2024-07-03 08:10 | W.PN.HOSP.TC ---
Addendum entered and electronically signed by Cinthya Najera MD 07/03/24 16:46:
I saw and evaluated the patient independently. I reviewed the resident�s note and agree with findings and plan as documented by Dr. Tyler.
GENERAL: well developed, well nourished, male in no apparent distress
HEENT: NC/AT--O2 NC
HEART: regular rate and rhythm with ectopy, +S1, +S2
LUNGS : clear to auscultation bilaterally
ABDOM: soft, nontender, nondistended, + bowel sounds
EXT: no cyanosis, clubbing, or edema
NEUROLOGIC: grossly intact
acute hypoxemic respiratory failure-- most likely from progression of lung cancer, less likely pneumonia, heart failure exacerbation (last echo November with preserved EF and mild aortic stenosis)--CXR with diffuse interstitial opacities, CT scan chest
with evidence for interval increase of extension of the mass into the left side of the mediastinum--wean O2 if able--if not, will need assessment for home O2--consult cards,
Urinary tract infection--hx of E coli UTI--ceftriaxone continued--consult ID at heme request
generalized weakness/fall likely from metastatic disease, UTI, very orthostatic--check cosyntropin STIM test (laurie with immune therapy)--cont midodrine, abdominal binder, PT/OT
anemia of chronic disease most likely--no evidence for bleeding--stable HGB of 8.6
increased peripheral eosinophilia--likely due to malignancy
CKD stage 3b--creatinine appears at baseline
Type 2 DM--sliding scale--lantus 10u at hs
History of angioedema on ZACHARY inhibitors
Lung cancer of left lobe, squamous cell carcinoma--Primary oncologist is Dr. Shin--s/p SBRT, completed carbo/taxol 04/17/2024--was on Keytruda--spoke with Dr. Shin, needs PET at [facility] where his other scans are...
Chronic diastolic congestive heart failure--hold torsemide--Ranexa continued
Paroxysmal AFib/CAD s/p CABG KINCAID-LAD 04/2015. PCI LM and LCX 06/2015--09/2022 post cath with patent KINCAID to LAD and stent and no new obstructive CAD--History of VT/VF cardiac arrest 04/2015 underwent urgent CABG as above--Continue Eliquis 2.5 mg twice
daily, Plavix 75 mg daily--consult cards
BPH--Flomax,finasteride continued
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
Hypercholesterolemia--Continue Crestor
DVT PPx: Eliquis
Code Status: Full code
Original Note:
Today's Communication/Plan
-
.
Assessment / Plan
Assessment / Plan
Assessment/plan
#Acute on chronic hypoxic respiratory failure likely secondary to lung cancer
-chest x ray with diffusely increased interstitial opacities bilaterally with more confluent appearance within the left apical and basilar segments. No new areas of airspace disease. No pleural effusions or pneumothorax.
-Wean O2 as tolerated
-Continue daily Lasix
-CT chest 07/03/2024 Left upper lobe mass compatible with carcinoma. Since prior CT of November 26, 2023, evidence for interval increase of extension of the mass into the left side of the mediastinum. Nodular parenchymal opacities within both lower lobes
have increased compared to prior CT examination, morphologic appearance most suggestive of pneumonia. Interval improvement in reticulonodular and groundglass opacities within both upper lungs, mainly within the upper lobes, suggesting improvement in
pneumonia and/or lymphangitic spread of carcinoma.Minimal bilateral posterior pleural effusions.
# Recurrent urinary tract infection
# Prior history of E coli UTI, recently treated for bacterial prostatitis at previous admission
-ceftriaxone continued
-Urine cultures pending, preliminary results E. coli
#generalized weakness/fall likely from metastatic disease versus UTI
-PT/OT consult
#orthostatic Hypotension possibly secondary to UTI versus malignancy versus adrenal insufficiency
-midodrine continued
-Check cortisol stimulation test in the AM
-Abdominal binders
#anemia of chronic disease
-hgb stable at 8.6
-no active bleeding
-Monitor CBC
#CKD stage 3b
-cr 1.6 today (baseline 1.6)
#Type 2 Dm
-HbA1c 8.0
-sliding scale insulin
-lantus 10u at bedtime
# History of angioedema on ZACHARY inhibitors
# CKD stage 3
Monitor BMP
# Lung cancer of left lobe, squamous cell carcinoma
-CT chest concerning for local progression
-s/p SBRT, completed carbo/taxol 04/17/2024
-Currently on Keytruda immunotherapy alone
-Oncology consulted, recommendation appreciated
# HFpEF-recent echo in November LVEF 50 to 55%
-hold torsemide
-Ranexa continued for anginal symptoms
# RBBB
# Paroxysmal AFib
-EKG with NSR with right BBB
# CAD s/p CABG KINCAID-LAD 04/2015. PCI LM and LCX 06/2015
# 09/2022 post cath with patent KINCAID to LAD and stent and no new obstructive CAD.
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
-Continue Eliquis 2.5 mg twice daily, Plavix 75 mg daily
#BPH
-Flomax,finasteride continued
# COPD/Emphysema
# Former smoker
# Hypercholesterolemia
-Continue Crestor
DVT PPx: Eliquis
Code Status: Full code
Anticipated Discharge: > 48 hours
Subjective/Interval History
-
Patient seen and examined at bedside. Reports mild fatigue. Requesting to speak to her oncologist Dr. Shin. Vital signs stable, O2 sat 94% on 3 L
Objective Data
-
Labs:
Laboratory Results
07/03/24
06:03
WBC 7.0
Hgb 8.7 L
Hct 26.5 L
Plt Count 227
Sodium 135
Potassium 4.6
Chloride 102
Carbon Dioxide 25
BUN 33 H
Creatinine 1.6 H
Glucose 139 H
Calcium 8.8
Vital Signs:
Vital Signs
Temp Pulse Resp BP Pulse Ox
97.9 F 66 18 128/62 94
07/03/24 06:01 07/03/24 06:01 07/03/24 06:01 07/03/24 06:01 07/03/24 06:01
Review of Systems
-
All other systems: Reviewed and negative (Except as documented)
Physical Exam
-
General: No Apparent Distress
Respiratory: Decreased Breath Sounds (Bilateral bases)
Cardiac: Regular Rhythm and S1/S2
GI: Soft, Nontender and Nondistended
Musculoskeletal: No Edema
Neuro: Awake, Alert, Oriented and AO x 3
--- NOTE | 2024-07-03 10:27 | CON.ONC ---
Impression
Impression
weakness
recurrent UTI, recently treated x1mo for prostatitis
relapsed/recurrent lung cancer, currently on Keytruda. CT chest today concerning for local progression.
Plan
Plan
Await urine culture, continue Ceftriaxone. Would likely benefit from ID input w/ recurrent UTIs.
PT evaluation.
Chest pain may be related to hilar mass, though would consider further cardiac work-up; known to Dr. Ferguson
Further treatment of lung cancer TBD. Will likely obtain outpatient PET to assess status (done most recently at [facility] in March)
We will follow along
Patient History
History of Present Illness
This is an 83yo patient of mine from the office, with relapsed/recurrent NSCLC, currently on Keytruda immunotherapy alone (after several cycles of chemo with carbo/taxol, last in March 2024). He's had ongoing weakness, was hospitalized in late April
with the same, and discharged to [facility]. I rec'd a call from his nurse there yesterday, that patient was having labile BPs, needing 4L O2, having hallucinations, and c/o chest pain. I recommended ER evaluation.
Work-up thus far is noted for +UA. During his last hospitalization he was diagnosed with likely E Coli prostatitis, and prescribed one month of doxycycline, which finished in late May. He had an E Coli UTI in February [address] chest was
done this am and shows 'Left upper lobe mass compatible with carcinoma. Since prior CT of November 26, 2023, evidence for interval increase of extension of the mass into the left side of the mediastinum. Nodular parenchymal opacities within both lower
lobes have increased compared to prior CT examination, morphologic appearance most suggestive of pneumonia. Interval improvement in reticulonodular and groundglass opacities within both upper lungs, mainly within the upper lobes, suggesting
improvement in pneumonia and/or lymphangitic spread of carcinoma. Minimal bilateral posterior pleural effusions.' (PET was done in late March at [facility] and appeared stable since December).
He notes some ongoing episodes of mid chest discomfort. He's known to Dr. Blackburn, cardiology. He reports drop in BP upon standing.
Past-Medical/Surgical History
PMH/PSH as above, also AL, HTN, DM, COPD, PVD, kidney disease, HLD, CVA, vascular surgery, CABG, stents, cholecystectomy, CEA
SH: former smoker, rare alcohol
FH: N/C
Patient Medication
�Medication �Instructions �Recorded �Confirmed �Last Taken �Type
tamsulosin 0.4 mg capsule 0.4 mg PO DAILY Urinary issue 07/15/22 07/02/24 05/21/24 History
azelastine 137 mcg (0.1 %) nasal 1 spray intranasal BIDPRN PRN 09/14/23 07/02/24 11/18/23 History
spray congestion
apixaban 2.5 mg tablet (Eliquis) 2.5 mg PO BID #60 tabs 12/03/23 07/02/24 05/21/24 Rx
Lactobacillus-Bifidobacterium 30 1 cap PO DAILY Gastrointestinal 01/05/24 07/02/24 05/21/24 History
billion cell capsule,delayed Issue
release (Ultimate Mena Probiotic)
clopidogrel 75 mg tablet 75 mg PO DAILY Blood Clot 01/05/24 07/02/24 05/21/24 History
Prevention/Tx
dextromethorphan-guaifenesin 30 1 tab PO [id number] PRN congestion ##0 01/05/24 07/02/24 Unknown History
mg-600 mg tablet extended
[id number] hr (Mucinex DM)
psyllium 1 packet PO HS constipation 01/05/24 07/02/24 05/20/24 History
acetaminophen 325 mg tablet 650 mg PO Q4HPRN PRN mild pain 05/21/24 07/02/24 Unknown History
(Tylenol)
ammonium lactate 12 % lotion 1 applic topical DAILYPRN PRN B/L 05/21/24 07/02/24 Unknown History
legs
triamcinolone acetonide 0.1 % 1 applic topical BIDPRN PRN rash 05/21/24 07/02/24 Unknown History
topical ointment on buttocks
finasteride 5 mg tablet 5 mg PO DAILY #30 tabs 05/30/24 07/02/24 Unknown Rx
Saccharomyces boulardii 250 mg 250 mg PO BID 07/02/24 07/02/24 Unknown History
capsule (Florastor)
acetaminophen 500 mg tablet 500 mg PO TID 07/02/24 07/02/24 Unknown History
(Tylenol Extra Strength)
bisacodyl 10 mg rectal suppository [address] DAILYPRN PRN IF NO BM 07/02/24 07/02/24 Unknown History
(Dulcolax (bisacodyl)) AFTR MOM
coQ10 (ubiquinol) 100 mg capsule 100 mg PO DAILY 07/02/24 07/02/24 Unknown History
docusate sodium 100 mg capsule 100 mg PO DAILY 07/02/24 07/02/24 Unknown History
(Colace)
insulin aspart U-100 100 unit/mL 10 sliding scale dose SC AC 07/02/24 07/02/24 Unknown History
subcutaneous solution
insulin glargine 100 unit/mL (3 10 unit SC DAILY@1900 Diabetes 07/02/24 07/02/24 Unknown History
mL) subcutaneous pen (Lantus
Solostar U-100 Insulin)
magnesium hydroxide 400 mg/5 mL 2,400 mg PO DAILYPRN PRN IF NO BM 07/02/24 07/02/24 Unknown History
oral suspension (Milk of Magnesia) IN 2/3 DAYS
methenamine hippurate 1 gram 1 g PO DAILY 07/02/24 07/02/24 Unknown History
tablet (Hiprex)
midodrine 10 mg tablet 10 mg PO TID 07/02/24 07/02/24 Unknown History
mupirocin 2 % topical ointment 1 applic topical DAILY BUTTOCKS 07/02/24 07/02/24 Unknown History
ranolazine 500 mg tablet,extended 500 mg PO BID 07/02/24 07/02/24 Unknown History
release,12 hr
rosuvastatin 5 mg tablet (Crestor) 5 mg PO DAILY 07/02/24 07/02/24 Unknown History
sodium phosphates 19 gram-[address] DAILYPRN PRN IF NO BM 07/02/24 07/02/24 Unknown History
gram/118 mL enema (Fleet Enema) AFTR DULCOLAX
torsemide 20 mg tablet 10 mg PO DAILYPRN PRN WEIGHT GAIN 07/02/24 07/02/24 Unknown History
Active Medications
Generic Name Dose Route Start Last Admin
Trade Name Freq PRN Reason Stop Dose Admin
Acetaminophen 650 mg 07/02/24 20:17
Acetaminophen 325 Mg Tablet PO 07/30/24 20:16
Q4HPRN PRN
mild pain
Albuterol/Ipratropium 3 ml 07/02/24 20:17
Ipratropium 0.5/Albuterol 3 Mg (3 Ml Ampul) INH
R Q4HPRN PRN
shortness of breath
Protocol
Apixaban 2.5 mg 07/02/24 20:17 07/02/24 21:21
Apixaban (Eliquis) 2.5 Mg Tablet PO 07/30/24 20:16 2.5 mg
BID KALANI Administration
Bisacodyl 10 mg 07/02/24 20:17
Bisacodyl 10 Mg Rectal Suppository RECTAL 07/30/24 20:16
[id number] PRN
constipation
Ceftriaxone Sodium 1,000 mg 07/02/24 22:00 07/02/24 22:51
Ceftriaxone 1000 Mg / 10 Ml Vial IV 1,000 mg
Q24H KALANI Administration
Clopidogrel Bisulfate 75 mg 07/03/24 08:00
Clopidogrel 75 Mg Tablet PO 07/31/24 07:59
DAILY KALANI
Dextrose 12.5 grams 07/02/24 20:17
Dextrose 50% (0.5 Grams/Ml) 50 Ml Syringe IV 07/30/24 20:16
[id number] PRN
hypoglycemia
Protocol
Docusate Sodium 100 mg 07/03/24 08:00
Docusate Sodium 100 Mg Capsule PO 07/31/24 07:59
DAILY KALANI
Finasteride 5 mg 07/03/24 08:00
Finasteride 5 Mg Tablet PO 07/31/24 07:59
DAILY KALANI
Glucagon 1 mg 07/02/24 20:17
Glucagon 1 Mg Vial IM 07/30/24 20:16
PRN PRN
hypoglycemia
Protocol
Heparin Sodium (Porcine) 500 unit 07/03/24 00:01 07/03/24 00:08
Heparin Flush Pf (100 Unit/Ml) 5 Ml Syringe IV 07/31/24 00:00 500 unit
PRN PRN Administration
SC PORT ACCESS
Insulin Glargine 10 units/ 0.1 mls @ 0 mls/hr 07/02/24 21:00 07/02/24 21:23
Device SC 07/30/24 20:59 0.1 mls
DAILY@1900 KALANI Administration
As Directed
Insulin Aspart 0 units 07/02/24 20:17 07/02/24 21:00
Insulin Aspart Low Resistance 300 Units/3 Ml Pen.Injctr SC 07/30/24 20:16 Not Given
AC KALANI
Protocol
Lactobacillus/Bifidobacterium 1 cap 07/03/24 08:00
Lactobac/Bifidobac (Visbiome) PO 07/31/24 07:59
DAILY KALANI
Miconazole Nitrate 0 applic 07/03/24 08:00
Miconazole Powder Bottle TOPICAL 07/31/24 07:59
BID KALANI
Midodrine 10 mg 07/02/24 21:00 07/02/24 21:30
Midodrine 5 Mg Tablet PO 07/30/24 20:59 Not Given
TID @ 0800,1200,1700 KALANI
Polyethylene Glycol 17 grams 07/02/24 20:17
Polyethylene Glycol Powder 17 Grams Packet PO 07/30/24 20:16
DAILYPRN PRN
constipation
Ranolazine 500 mg 07/02/24 20:17 07/02/24 21:23
Ranolazine 500 Mg Extended Release Tablet PO 07/30/24 20:16 500 mg
BID KALANI Administration
Rosuvastatin Calcium 5 mg 07/03/24 08:00
Rosuvastatin (Crestor) 5 Mg Tablet PO 07/31/24 07:59
DAILY KALANI
Saccharomyces Boulardii 250 mg 07/02/24 20:17 07/02/24 21:21
Saccharomyces Boulardi (Florastor) 250 Mg Capsule PO 07/30/24 20:16 250 mg
BID KALANI Administration
Senna/Docusate Sodium 1 tablet 07/02/24 20:17
Docusate W/Senna (Jessy-Colace) Tablet PO 07/30/24 20:16
BIDPRN PRN
constipation
Sodium Chloride 0 flush 07/02/24 21:00 07/03/24 00:09
Sodium Chloride 0.9% (Flush) Syringe IV 07/30/24 20:59 1 flush
PER PROTOCOL KALANI Administration
Sterile Water 10 ml 07/02/24 22:00 07/02/24 22:50
Sterile Water For Injection 10 Ml Vial IV 07/30/24 21:59 10 ml
Q24H KALANI Administration
Tamsulosin HCl 0.4 mg 07/03/24 08:00
Tamsulosin 0.4 Mg Capsule PO 07/31/24 07:59
DAILY KALANI
Triamcinolone Acetonide 0 applic 07/02/24 20:17
Triamcinolone Acetonide 0.1% (Ointment) 15 Gram Tube TOPICAL 07/30/24 20:16
BIDPRN PRN
rash on buttocks
Review of Systems
-
History Source: Patient
All Other Systems: Not reviewed unless documented
Cardiac: Reports Chest Pain
Musculoskeletal: Reports Muscle Weakness
Physical Exam
-
General: Well Developed, Well Nourished, No Apparent Distress and Conversant; Negative Appears in Distress
HEENT: Moist Mucous Membranes; Negative Jaundice
Cardiology: Normal Sinus Rhythm
Pulmonary: Rales
GI: Soft and Normal Bowel Sounds
Musculoskeletal: No Clubbing, No Cyanosis and No Edema
Extremities: No C/C/E
Neurology: Non Focal, No Lateralizing Symptoms and No Word Finding Difficulty
Skin: Warm and Dry
Psych: Calm and Intact Judgement/Insight
Labs
Lab Results
WBC 7.0 10^3/uL (4.8-10.8) 07/03/24 06:03
RBC 2.95 10^6/uL (4.70-6.10) L 07/03/24 06:03
Hgb 8.7 g/dL (13.0-18.0) L 07/03/24 06:03
Hct 26.5 % (39.0-52.0) L 07/03/24 06:03
MCV 89.8 fL (80.0-94.0) 07/03/24 06:03
MCH 29.5 pg (27.0-31.0) 07/03/24 06:03
MCHC 32.8 g/dL (33.0-37.0) L 07/03/24 06:03
RDW 14.9 % (11.5-14.5) H 07/03/24 06:03
Plt Count 227 10^3/uL (130-400) 07/03/24 06:03
MPV 9.6 fL (7.4-10.4) 07/03/24 06:03
Abs Immat Gran (auto) 0.1 10^3/uL (0-0.05) H 07/02/24 11:46
Absolute Neuts (auto) 4.8 10^3/uL (1.4-6.5) 07/02/24 11:46
Absolute Lymphs (auto) 0.5 10^3/uL (1.2-3.4) L 07/02/24 11:46
Absolute Monos (auto) 0.9 10^3/uL (0.1-0.6) H 07/02/24 11:46
Absolute Eos (auto) 0.4 10^3/uL (0-0.7) 07/02/24 11:46
Absolute Basos (auto) 0.0 10^3/uL (0-0.2) 07/02/24 11:46
Immature Gran % 0.9 % (0-0.5) H 07/02/24 11:46
Neutrophils % 72.3 % (42.2-75.2) 07/02/24 11:46
Lymphocytes % 6.8 % (20.5-51.1) L 07/02/24 11:46
Monocytes % 13.4 % (1.7-9.3) H 07/02/24 11:46
Eosinophils % 6.4 % (0-6) H 07/02/24 11:46
Basophils % 0.2 % (0-2) 07/02/24 11:46
Creatinine 1.6 mg/dL (0.7-1.3) H 07/03/24 06:03
Vital Signs
Vital Signs
Temp Pulse Resp BP Pulse Ox
97.3 F 62 20 136/60 94
07/03/24 07:10 07/03/24 07:10 07/03/24 07:10 07/03/24 07:10 07/03/24 07:10
[2024-07-03] MEDS: NOVOLOG FLEXPEN-LOW RESISTANCE SC ×2 (10:43→16:41)
[2024-07-03] MEDS: FLORASTOR 250 MG PO ×2 (10:44→21:49)
[2024-07-03] MEDS: RANEXA EXTENDED RELEASE 500 MG PO ×2 (10:44→21:49)
[2024-07-03] MEDS: ProAmatine 10 MG PO ×3 (10:44→18:26)
[2024-07-03] MEDS: COLACE 100 MG PO (10:45)
[2024-07-03] MEDS: PLAVIX 75 MG PO (10:46)
[2024-07-03] MEDS: VISBIOME 1 CAP PO (10:46)
[2024-07-03] MEDS: ELIQUIS 2.5 MG PO ×2 (10:47→21:49)
[2024-07-03] MEDS: CRESTOR 5 MG PO (10:47)
[2024-07-03] MEDS: PROSCAR 5 MG PO (10:47)
[2024-07-03] MEDS: DESENEX/MITRAZOL/ZEASORB 1 APPLIC TOPICAL ×2 (10:47→21:49)
[2024-07-03] MEDS: FLOMAX 0.4 MG PO (10:47)
[2024-07-03 12:03] LABS: Glucose - Point of Care 202 mg/dl (70-99)
[2024-07-03] MEDS: NOVOLOG FLEXPEN-LOW RESISTANCE 2 UNITS SC (13:41)
--- NOTE | 2024-07-03 14:04 | CM ---
Patient seen at bedside with physician, and resident. Patient indicated that he has been at [facility] since last hospitalization. Patient indicated that it was a good place but he did not pay to hold the bed. Admissions person from [facility]
indicated that patient participated in therapy as much as possible but his blood pressure issues limited his ability to participate fully. CM would need to send referral to determine if bed available when patient ready for discharge. Patient
indicated that he resides with his spouse in a one story home with two steps to enter via front door. The patient has a shower chair and shower grab bar, walker. The patient has had [facility] in the past. The pharmacy patient used in the past is
the [facility] [address] [place]. CM continues to follow for discharge planning needs.
Plan; SNF
[2024-07-03 16:37] LABS: Glucose - Point of Care 130 mg/dl (70-99)
[2024-07-03 21:00] LABS: Glucose - Point of Care 157 mg/dl (70-99)
[2024-07-03] MEDS: LANTUS 0.1 UNITS SC (22:08)
[2024-07-03] MEDS: STERILE WATER FOR INJECTION 10 ML IV (22:11)
[2024-07-03] MEDS: ROCEPHIN 1000 MG IV (22:11)
[2024-07-04] VITALS (7 sets, daily range): BP systolic 63–135; BP diastolic 41–64; PULSE 69–81; BMI 26.5
[2024-07-04 07:12] LABS: Glucose - Point of Care 101 mg/dl (70-99)
--- NOTE | 2024-07-04 07:47 | CON.CAR ---
Addendum entered and electronically signed by Miguelito Roberts MD 07/04/24 11:31:
I saw and examined the patient.
The Internet Technology Manager's note was reviewed and I agree with the note.
Comment:
GEN: No distress, awake, Ox3
HEENT: supple, anicteric, mmm
LUNGS: CTA, no wheezes/rales
CV: Reg, S1/S2, 1/6 syst LSB, no gallop
ABD: soft, BS+, NT/ND
EXT: No edema
NEURO: Gross non-focal
SKIN: No rash
Plan:
This is an 83-year-old male with a complex past medical history including long-term orthostasis, lung cancer, chronic heart failure with preserved ejection fraction, paroxysmal atrial fibrillation, diabetes, hypertension, and obstructive sleep apnea
who presents for fatigue/weakness, and a fall. He has a long history of orthostasis. He recently had his torsemide stopped due to continued symptoms. He was at his facility where he slumped over but states he did not lose consciousness. He was
found to have a UTI is being treated for this. CT scan reveals progression of his known lung cancer. He has had hypoxemia with his oxygen saturation 84% on room air.
We have followed him in the past for his orthostasis. He remains on midodrine 10 mg p.o. 3 times daily. Will check orthostatics.
Treat UTI. Creatinine overall improved at 1.3.
Volume status appears relatively stable. With his severe orthostasis would hold on restarting diuretics for now. CT scan though does have some minimal posterior pleural effusions.
Another option would be to add Florinef to try to help his orthostasis. Will follow.
Original Note:
Consultation
Consultation Request
Date/Time Consultation Requested: 07/03/24
Date/Time Consultation Performed: 07/04/24, 0730
Requesting Provider: Dr Tyler
Performing Provider: VJ Bailey for Dr Cyr
Reason for Consultation: orthostasis
Medical History
-
Chief Complaint: fatigue and weakness
History of Present Illness:
HPI:
Gonzalez is an 83 year old male with PMH of chronic HFpEF, paroxysmal atrial fibrillation (on Eliquis, previously on Amio but stopped during 06/19 admission due to eosinophilia), CAD s/p PCI and prior CABG, lung cancer currently on Keytruda, COPD, PVD,
AAA, CKD, HTN, HLD, KIM, and DM2 who presented to [facility] 07/03/24 for fatigue and weakness. He has been in a rehab facility and had a fall there. He did not have syncope or hit his head. +hallucinations. He was noted to be hypoxic with an oxygen
saturation of 84% on room air. He was transported to [place] ED. He was COVID-negative. Positive UA and being treated for UTI. He had a chest CT showing left upper lobe mass consistent with carcinoma as well as bilateral opacities of the
lower lobes consistent with pneumonia and minimal bilateral pleural effusions.
Labs on admission: Creatinine 1.6, BUN 33, NA 135, K4.6, hemoglobin 8.7. BNP and troponins not checked.
EKG 07/02/2024: Normal sinus rhythm with right bundle branch block and first-degree AV block.
He reports having 6 or 7 falls since February due to lower extremity weakness. He was seen by his primary criminal lawyer, Dr. Ferguson on 06/20/2024 and there was concern about dehydration. Regular torsemide was stopped and changed to as needed dosing.
Midodrine was increased to 10 mg 3 times daily. Since then he does not report feeling much better in terms of weakness. In addition he was also started on Ranexa due to complaints of chest discomfort, occurring intermittently, described as
left-sided pressure and sometimes sharp and stabbing. No improvement since starting Ranexa.
Last echo 11/28/2023: EF 50 to 55%, akinesis of basal inferior wall, mild aortic stenosis, 0.7 cm�
Cardiac cath 10/22/2022: stable CAD with prior left main to left circumflex stent patent, chronic total occlusion RCA, patent KINCAID to LAD, elevated LVEDP.
He currently denies chest pain, shortness of breath, edema, palpitations, lightheadedness, syncope. He has had no PND orthopnea. He has had no palpitations and no known recurrent atrial fibrillation.
He has not been out of bed since admission.
PMH:
Chronic HFpEF
Paroxysmal atrial fibrillation-on Eliquis
CAD
urgent CABGx1 KINCAID-LAD (VF/VT arrest) 04/2015
PCI LM and LCx 06/2015
s/p cath with patent KINCAID-LAD and stents, non new occlusive disease 10/22/22
Currently medically managed with Plavix/Eliquis, high intensity rosuvastatin, Ranexa
Non-small cell lung cancer s/p radiation 11/2022 currently on Carbo/Taxol, Pembrolizumab
h/o VT/VF arrest in 2014 in the setting of left main stenosis
Orthostatic hypotension
COPD/Emphysema
PVD - fem bypass and [facility] F 2016
CEA B/L 2018
AAA 3.2cm
CKD 3a, baseline creatinine is 1.4-1.6.
HTN
HLD
KIM
RBBB
DM2
Former smoker
Past Medical History
Past Medical History: Other (In HPI)
Past Surgical History: Cardiac (PCI of LM and LCx 06/2015, CABG x1 04/2015), Cholecystectomy and Other ( vein stripping, b/l CEA, lung biopsy, fem bypass and [facility] F 2016)
Social History
Tobacco: Former Smoker
Alcohol: None
Drug: None
Personal:
Living: With Family
Employment: Retired
Family History
Family History: CAD
Allergies / Home Medications
Allergy/AdvReac Type Severity Reaction Status Date / Time
ZACHARY Inhibitors Allergy Shortness Verified 07/02/24 11:22
of
Breath-possible
angioedema-pharm
to review
Cephalosporins Allergy Eosinophili Verified 07/02/24 11:22
a
Iodinated Contrast Media Allergy affected Verified 07/02/24 11:22
[Iodinated Contrast Media - kidneys
Oral and]
sulfamethoxazole Allergy Rash Verified 07/02/24 11:22
[From Bactrim]
trimethoprim [From Bactrim] Allergy Rash Verified 07/02/24 11:22
�Medication �Instructions �Recorded �Confirmed �Type
tamsulosin 0.4 mg capsule 0.4 mg PO DAILY Urinary issue 07/15/22 07/02/24 History
azelastine 137 mcg (0.1 %) nasal 1 spray intranasal BIDPRN PRN 09/14/23 07/02/24 History
spray congestion
apixaban 2.5 mg tablet (Eliquis) 2.5 mg PO BID #60 tabs 12/03/23 07/02/24 Rx
Lactobacillus-Bifidobacterium 30 1 cap PO DAILY Gastrointestinal 01/05/24 07/02/24 History
billion cell capsule,delayed Issue
release (Ultimate Mena Probiotic)
clopidogrel 75 mg tablet 75 mg PO DAILY Blood Clot 01/05/24 07/02/24 History
Prevention/Tx
dextromethorphan-guaifenesin 30 1 tab PO [id number] PRN congestion ##0 01/05/24 07/02/24 History
mg-600 mg tablet extended
[id number] hr (Mucinex DM)
psyllium 1 packet PO HS constipation 01/05/24 07/02/24 History
acetaminophen 325 mg tablet 650 mg PO Q4HPRN PRN mild pain 05/21/24 07/02/24 History
(Tylenol)
ammonium lactate 12 % lotion 1 applic topical DAILYPRN PRN B/L 05/21/24 07/02/24 History
legs
triamcinolone acetonide 0.1 % 1 applic topical BIDPRN PRN rash 05/21/24 07/02/24 History
topical ointment on buttocks
finasteride 5 mg tablet 5 mg PO DAILY #30 tabs 05/30/24 07/02/24 Rx
Saccharomyces boulardii 250 mg 250 mg PO BID 07/02/24 07/02/24 History
capsule (Florastor)
acetaminophen 500 mg tablet 500 mg PO TID 07/02/24 07/02/24 History
(Tylenol Extra Strength)
bisacodyl 10 mg rectal suppository 10 mg IN DAILYPRN PRN IF NO BM 07/02/24 07/02/24 History
(Dulcolax (bisacodyl)) AFTR MOM
coQ10 (ubiquinol) 100 mg capsule 100 mg PO DAILY 07/02/24 07/02/24 History
docusate sodium 100 mg capsule 100 mg PO DAILY 07/02/24 07/02/24 History
(Colace)
insulin aspart U-100 100 unit/mL 10 sliding scale dose SC AC 07/02/24 07/02/24 History
subcutaneous solution
insulin glargine 100 unit/mL (3 10 unit SC DAILY@1900 Diabetes 07/02/24 07/02/24 History
mL) subcutaneous pen (Lantus
Solostar U-100 Insulin)
magnesium hydroxide 400 mg/5 mL 2,400 mg PO DAILYPRN PRN IF NO BM 07/02/24 07/02/24 History
oral suspension (Milk of Magnesia) IN 2/3 DAYS
methenamine hippurate 1 gram 1 g PO DAILY 07/02/24 07/02/24 History
tablet (Hiprex)
midodrine 10 mg tablet 10 mg PO TID 07/02/24 07/02/24 History
mupirocin 2 % topical ointment 1 applic topical DAILY BUTTOCKS 07/02/24 07/02/24 History
ranolazine 500 mg tablet,extended 500 mg PO BID 07/02/24 07/02/24 History
release,12 hr
rosuvastatin 5 mg tablet (Crestor) 5 mg PO DAILY 07/02/24 07/02/24 History
sodium phosphates 19 gram-7 118 ml IN DAILYPRN PRN IF NO BM 07/02/24 07/02/24 History
gram/118 mL enema (Fleet Enema) AFTR DULCOLAX
torsemide 20 mg tablet 10 mg PO DAILYPRN PRN WEIGHT GAIN 07/02/24 07/02/24 History
Review of Systems
-
History Source: Patient
All other systems: Negative unless noted
Physical Exam
Vital Signs
Temp Pulse Resp BP Pulse Ox
97.7 F 69 18 135/57 95
07/04/24 03:28 07/04/24 03:28 07/04/24 03:28 07/04/24 03:28 07/04/24 03:28
Lab Results
GEN: No distress, awake, Ox3
HEENT: supple, anicteric, mmm
LUNGS: CTA, no wheezes/rales
CV: Reg, S1/S2, 1/6 systolic murmur, LSB
ABD: soft, BS+, NT/ND
EXT: No edema
NEURO: Gross non-focal
SKIN: No rash
Impression / Plan
-
PCP: Dr. Villa
Arrt Technologist: Dr. Blackburn
Impression:
weakness/fatigue/fall
Acute hypoxemic respiratory failure
UTI
HFpEF
chest pain
Orthostatic hypotension
Paroxysmal atrial fibrillation
hypereosinophilia
abnormal CXR 05/25/24
Chronic Eliquis anticoagulation, off Amio due to eosinophilia
CAD
urgent CABGx1 KINCAID-LAD (VF/VT arrest) 04/2015
PCI LM and LCx 06/2015
s/p cath with patent KINCAID-LAD and stents, non new occlusive disease 10/22/22
currently managed with Plavix, Eliquis, Crestor, newly on Ranexa
Non-small cell lung cancer s/p radiation 11/2022 currently on Carbo/Taxol, Pembrolizumab
h/o VT/VF arrest in 2014 in the setting of left main stenosis
COPD/Emphysema
PVD - fem bypass and [facility] [facility] 2016
CEA B/L 2018
AAA 3.2cm
CKD 3a
HTN
HLD
KIM
RBBB
DM2
Former smoker
Previous cardiovascular diagnostic studies:
Echo 10/22/2022�EF 65 to 70%.� Mild MR.� Aortic valve gradients 20/8 mmHg peak/mean consistent with mild aortic valve stenosis.� Trace TR with PA pressure 30 to 35 mmHg
Echo 11/28/2023: EF 50-55%, akinesis of the basal inferior wall, mild w/ peak/mean gradients 19/10 mmHg
Cardiac cath: 10/22/2022: stable CAD with prior left main to left circumflex stent patent, chronic total occlusion RCA, patent KINCAID to LAD, elevated LVEDP.
Plan:
1. Lightheadedness/weakness/orthostatic hypotension:
-Check orthostatic vital signs
-Hold diuretics-
Getting cosyntropin stim test today
Continue midodrine 10 mg 3 times daily
PT OT
-compression stockings
2. History of coronary artery disease-
-cath 2022 showing patent KINCAID to LAD graft and left main to circumflex stent.
-No ischemic changes on EKG today
-Ranexa recently added for chest pain-patient denies significant improvement in symptoms, could consider uptitrating dose
-?ischemic workup, check troponin
Continue Plavix/Eliquis/high intensity statin
3.HFpEF- appears euvolemic on exam. Given his orthostasis,torsemide recently stopped in outpatient setting. Creatinine stable. Cont daily wts
Recent echo 11/28/2023 as noted above with preserved EF and mild . No need to repeat at this time. Has had angioedema on ZACHARY inhibitors in the past.
4. p afib - He has had no symptoms of recurrent atrial fibrillation. Amiodarone stopped due to eosinophilia. It would not be unexpected for AF to eventually recur at which point rhythm control versus rate control options can be further explored.
AAD Rx options are very limited given CKD, CAD and now intolerance to amiodarone so that reasonable options would be rate control versus PVI/ablation.
- Continue renal dosing Eliquis. Hemoglobin in stable range. Possible candidate for a Watchman device given his frequent falls.
-telemetry personally reviewed: NSR, PVCs, PACs, HRs 60s.
5.Hypereosinophilia- Amiodarone stopped 05/25/24.
6. UTI being treated with Ceftriaxone. ID has been consulted
7. acute hypoxic resp failure - thought to be due to progression from lung Ca, which was seen on CT chest 07/03/24. Continue O2 as needed.
continue KEytruda.
-oncology following, outpt PET to assess status.
-concern that CP could be due to hilar mass
8. PVD - was due to see Dr Sloan, vascular tomorrow in outpt setting.
Data Reviewed
-
EKG: Tracing Personally Visualized and interpreted
Labs: Labs Reviewed by me
[2024-07-04 08:01] LABS: Hematocrit 27.2 % (39.0-52.0); Hemoglobin 8.9 g/dL (13.0-18.0); Mean Corp Hgb Conc. 32.7 g/dL (33.0-37.0); Mean Corpuscular Hgb 29.7 pg (27.0-31.0); Mean Corpuscular Volume 90.7 fL (80.0-94.0); Platelet Count 247 10^3/uL (130-400); Red Cell Dist. Width 14.9 % (11.5-14.5); White Blood Cell Count 7.2 10^3/uL (4.8-10.8)
[2024-07-04] MEDS: CORTROSYN 0.25 MG IV (08:35)
[2024-07-04] MEDS: NSS (PRESERVATIVE FREE) 1 ML IV (08:35)
[2024-07-04 09:57] LABS: Blood Urea Nitrogen 31 mg/dl (9-20); Calcium 9.2 mg/dl (8.4-10.2); Carbon Dioxide 28 mmol/L (22-30); Chloride 100 mmol/L (98-107); Estimated Creatinine Clearance 47 ml/min; Glucose 100 mg/dl (70-99); Sodium 133 mmol/L (135-145); eGFR 54.85
[2024-07-04] MEDS: NOVOLOG FLEXPEN-LOW RESISTANCE SC (10:09)
[2024-07-04] MEDS: COLACE 100 MG PO (10:10)
[2024-07-04] MEDS: CRESTOR 5 MG PO (10:10)
[2024-07-04] MEDS: PLAVIX 75 MG PO (10:10)
[2024-07-04] MEDS: VISBIOME 1 CAP PO (10:10)
[2024-07-04] MEDS: PROSCAR 5 MG PO (10:10)
[2024-07-04] MEDS: ProAmatine 10 MG PO ×3 (10:10→16:48)
[2024-07-04] MEDS: FLORASTOR 250 MG PO ×2 (10:10→20:40)
[2024-07-04] MEDS: ELIQUIS 2.5 MG PO ×2 (10:11→20:40)
[2024-07-04] MEDS: FLOMAX 0.4 MG PO (10:11)
[2024-07-04] MEDS: DESENEX/MITRAZOL/ZEASORB 1 APPLIC TOPICAL ×2 (10:11→20:49)
[2024-07-04] MEDS: RANEXA EXTENDED RELEASE 500 MG PO ×2 (10:11→20:40)
[2024-07-04 10:20] LABS: Troponin I 0.038 ng/ml
[2024-07-04 10:43] LABS: ACTH Stim Cortisol 60 Min 44.6 ug/dl
[2024-07-04 12:44] LABS: Glucose - Point of Care 258 mg/dl (70-99)
[2024-07-04] MEDS: NOVOLOG FLEXPEN-LOW RESISTANCE 3 UNITS SC (12:50)
--- NOTE | 2024-07-04 13:11 | CON.ID ---
Addendum entered and electronically signed by Danielle Anaya MD 07/04/24 16:59:
I personally performed a history and physical exam of the patient and discussed management with the resident. I reviewed the resident's note and agree with the documented findings and plan of care HPI/CC with the following additions/corrections:
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
bacterial prostatitis 06/19. Reports his chronic sanchez was removed about two weeks ago. Now representing for nonspecific fatigue and malaise. No fevers, chills, sinustenderness, change in his chronic/nonproductive cough, nausea, vomiting,
diarrhea, constipation, new rashes. He has been staying at assisted living. Reports several recent falls resulting in him representing here.
In the ER afebrile, bp stable (though + orthostatic BPs), wbc 7, hgb 8.9, plt 249, no L shift, AEC 400, cr 1.3 at his baseline, blood cultures not needed and not done, urine culture again with 100K E coli with similar sensitivies as last 3
cultures. Patient is currently on ceftriaxone. CT
Physical Exam
General: No Apparent Distress
Respiratory: CTA bilaterally, no wheezes or ronchi
Cardiac: S1/S2 and Regular Rhythm; No Murmur or Rub
GI: Soft, Non Tender, Non Distended and Normal Bowel Sounds
Musculoskeletal: No Edema
Skin: no Rash
Psych: Calm
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
CKD
H/o rash with Bactrim
- bladder scan
- urine culture again with 100K E coli - resistant to quinolones
- prostate US to assess for stones
- suggest moving forward with planned TURP when feasible
- plan 6 more weeks of doxycycline 100 mg PO BID, stop ceftriaxone
- eosinophilia currently quiescent - may be related to prostatitis
Lung Cancer with chronic cough
- symptoms not suggestive of acute pneumonia, while not the intended target of therapy, treatment would be effective irregardless
AW
Original Note:
Consultation
-
Date/Time Consultation Requested: 07/03/2024, 16 : 38 PM
Date/Time Consultation Performed: 07/04/2024, 1:12pm
Requesting Provider: Grace Tyler MD
Performing Provider: Lizbeth Rendon MD for Danielle Anaya MD
Reason for Consultation: compliacted UTI
Chief Complaint / Past History
Chief Complaint
Noted to be hypoxic, weak, off balance in the senior care facility. Was sent to the ER from [facility] on 07/02/2024.
History of Present Illness
83-year-old male with PMHx significant for squamous cell lung carcinoma s/p chemoradiation, currently on Keytruda, recurrent E. coli UTI, recently finished 1 month course of doxycycline 100 mg twice daily in late May came in with chief
complaints of weakness, hypoxia, mid chest pain.
Upon arrival to the ER he required 2 L low flow nasal cannula, had softer blood pressures without elevated blood pressure was tachypneic, continues to have intermittent tachypnea as of 07/04, and was afebrile throughout hospital admission. His WBC
count-6.6 upon admission, 7.2 on 07/04, hemoglobin-8.6 on 07/02, 8.9 on 07/04, normocytic anemia, platelet count at 247, hyponatremia upon arrival-133, (07/04, 133), serum creatinine at 1.9-improved to 1.3, HbA1c at 8.0, elevated troponin at 0.038.
Urine analysis pyuria with white blood cell count greater than 100, positive leukocyte esterase and many bacteria's noted. Urine culture positive for 100,000 CFU of E. coli. Oncology and cardiology were consulted for his chest pain and hypoxia, his
CT chest showed some evidence of questionable pneumonia, his chest x-ray showed some interstitial opacities bilaterally, his vascular ultrasound of the neck showed no evidence of restenosis in carotid arteries, and his peripheral vascular disease on
the extremity arterial study has been stable. Patient received 2 doses of ceftriaxone, 1 dose of Zosyn and 2 doses of topical miconazole so far.
Past History
Past Medical History: Other (Recurrent E. coli UTI, CKD stage IIIa, orthostatic hypotension, HFpEF, angioedema, BPH with LUTS, type 2 diabetes mellitus, sinus bradycardia with right bundle branch block, CAD status post CABG, V. tach/V-fib,
paroxysmal atrial fibrillation on Eliquis, COPD, former smoker, hypercholesterolemia)
Past Surgical History: Other (Carotid endarterectomy, left upper extremity femoral bypass graft, CABG, cholecystectomy, vein stripping and replacement.)
Allergy History:
amiodarone Allergy (Intermediate, Verified 07/04/24 13:07)
eosinophilia
ZACHARY Inhibitors Allergy (Verified 07/02/24 11:22)
Shortness of Breath-possible angioedema-pharm to review
Iodinated Contrast Media [Iodinated Contrast Media - Oral and] Allergy (Verified 07/02/24 11:22)
affected kidneys
sulfamethoxazole [From Bactrim] Allergy (Verified 07/02/24 11:22)
Rash
trimethoprim [From Bactrim] Allergy (Verified 07/02/24 11:22)
Rash
Medications Reviewed: Yes
Social History
Tobacco: Former Smoker
Alcohol: None
Drug: None
Personal: Single
Living: Alone
Employment: Employed
Family History
Family History: Not Pertinent
Review of Systems
Review of Systems
General: Negative Fever or Change in Appetite
HEENT: Negative Headache
Cardiovascular: Chest Pain and Dyspnea; Negative Palpitations
Respiratory: Dyspnea; Negative Cough or Sputum Production
Gasteroenterology: Negative Nausea or Vomiting
Genital / Urological: Negative Dysuria, Hematuria, Stones or Flank Pain
Endocrine: Weakness and Fatigue; Negative Weight Change
Musculoskeletal: Negative Joint Pain, Joint Swelling or Myalgias
Skin / Hair / Nails: Negative Rash
Psychological: Negative Depression or Sleep Changes
Vital Signs
Temp Pulse Resp BP Pulse Ox
97.7 F 70 20 129/63 93
07/04/24 11:04 07/04/24 12:54 07/04/24 11:04 07/04/24 12:54 07/04/24 11:04
Physical Exam
Physical Exam
Constitutional: Comfortable and Chronically Ill
Cardiovascular: Regular Rate and S1/S2; Negative Murmur, Rub or Gallop
Pulmonary: Clear; Negative Wheezes, Rales or Rhonchi
Gastrointestinal: Soft, Non Tender, Non Distended and Normal Bowel Sounds
Genito-Urinary: Negative Sanchez, Suprapubic Tenderness or CVA Tenderness
Extremities: Negative Edema
Skin: Warm and Other (pressure ulcer on the sacrum grade 1, with ulcer on the right buttock cheek noted. )
Neurological: Awake and Alert
Psychological: Calm
Lab / Diagnostic Study Results
07/04/24 07:53
07/04/24 07:53
Abs Immat Gran (auto) 0.1 10^3/uL (0-0.05) H 07/02/24 11:46
Absolute Neuts (auto) 4.8 10^3/uL (1.4-6.5) 07/02/24 11:46
Absolute Lymphs (auto) 0.5 10^3/uL (1.2-3.4) L 07/02/24 11:46
Absolute Monos (auto) 0.9 10^3/uL (0.1-0.6) H 07/02/24 11:46
Absolute Basos (auto) 0.0 10^3/uL (0-0.2) 07/02/24 11:46
Immature Gran % 0.9 % (0-0.5) H 07/02/24 11:46
Neutrophils % 72.3 % (42.2-75.2) 07/02/24 11:46
Lymphocytes % 6.8 % (20.5-51.1) L 10/07/24 11:46
Monocytes % 13.4 % (1.7-9.3) H 07/02/24 11:46
Eosinophils % 6.4 % (0-6) H 07/02/24 11:46
Basophils % 0.2 % (0-2) 07/02/24 11:46
Ur Squamous Epith Cells 0-2 /LPF (Few) 07/02/24 13:56
Microbiology Results
Micro:
07/02/24 13:56 Urine Culture - Final
Urine Escherichia coli
07/02/24 22:19 MRSA Screen - Final
Nose No Methicillin Resistant Staphylococcus aureus isolated.
Assessment / Plan
Assessment -
Subjective -no urinary tract symptoms. No fevers, chills.
Objective-afebrile, vital signs stable, orthostatic hypotension.WBC count-6.6 upon admission, 7.2 on 07/04, hemoglobin-8.6 on 07/02, 8.9 on 07/04, normocytic anemia, platelet count at 247, hyponatremia upon arrival-133, (07/04, 133), serum creatinine at
1.9-improved to 1.3, HbA1c at 8.0, elevated troponin at 0.038, AEC-400.. Urine analysis pyuria with white blood cell count greater than 100, positive leukocyte esterase and many bacteria's noted. Urine culture positive for 100,000 CFU of E. coli.
RADHA-resistant to fluoroquinolones. UTIs x 5 in the past.
Diagnosis-recurrent chronic prostatitis.
Plan-
Obtain prostate ultrasound in the a.m. tomorrow.
Consider the possibility of a prostate stone causing recurrent chronic prostatitis. Consider urological evaluation for BPH with LUTS if prostate ultrasound is positive for prostate stone.
Start patient on oral doxycycline 100 mg twice daily for 6 weeks
History of hypereosinophilia in the past, currently absolute eosinophil count at 400.
Care Review
Plan reviewed with: Physician
--- NOTE | 2024-07-04 13:40 | CM ---
Patient seen at bedside with physician and resident. Patient requested physician call patient jesus Alvarez [phone]. CM updated physician and resident regarding medical treatment plan. CM will continue to follow for discharge planning
needs.
Plan; SNF
--- NOTE | 2024-07-04 14:29 | W.PN.HOSP.TC ---
Addendum entered and electronically signed by Cinthya Najera MD 07/04/24 19:49:
I saw and evaluated the patient independently. I reviewed the resident�s note and agree with findings and plan as documented by Dr. Tyler.
GENERAL: well developed, well nourished, male in no apparent distress
HEENT: NC/AT--O2 NC
HEART: regular rate and rhythm with ectopy, +S1, +S2
LUNGS : clear to auscultation bilaterally
ABDOM: soft, nontender, nondistended, + bowel sounds
EXT: no cyanosis, clubbing, or edema
NEUROLOGIC: grossly intact
generalized weakness/fall-- very orthostatic-- cosyntropin STIM test does NOT show adrenal insufficiency--cont midodrine TID not helpful, abdominal binder, PT/OT--will add florinef, does not need hydrocortisone--apprec cards
acute hypoxemic respiratory failure-- most likely from progression of lung cancer, less likely pneumonia, heart failure exacerbation (last echo November with preserved EF and mild aortic stenosis)--CXR with diffuse interstitial opacities, CT scan chest
with evidence for interval increase of extension of the mass into the left side of the mediastinum--wean O2 if able--if not, will need assessment for home O2--apprec cards
E. coli Urinary tract infection--has had in past--apprec ID, believe due to prostatitis --ceftriaxone discontinued--changed to doxycycline
anemia of chronic disease most likely--no evidence for bleeding--stable HGB of 8.6
increased peripheral eosinophilia--likely due to malignancy or Ketruda (although predates starting Keytruda per ID)
CKD stage 3b--creatinine appears at baseline
Type 2 DM--sliding scale--lantus 10u at hs
History of angioedema on ZACHARY inhibitors
Lung cancer of left lobe, squamous cell carcinoma--Primary oncologist is Dr. Shin--s/p SBRT, completed carbo/taxol 04/17/2024--was on Keytruda--spoke with Dr. Shin, needs PET at [facility] where his other scans are...
Chronic diastolic congestive heart failure--hold torsemide--Ranexa continued
Paroxysmal AFib/CAD s/p CABG KINCAID-LAD 04/2015. PCI LM and LCX 06/2015--09/2022 post cath with patent KINCAID to LAD and stent and no new obstructive CAD--History of VT/VF cardiac arrest 04/2015 underwent urgent CABG as above--Continue Eliquis 2.5 mg twice
daily, Plavix 75 mg daily--apprec cards
BPH--Flomax, finasteride continued--can be associated with hypotension--consideration for stopping flomax....
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
Hypercholesterolemia--Continue Crestor
DVT PPx: Eliquis
Code Status: Full code
Original Note:
Today's Communication/Plan
-
.
Assessment / Plan
Assessment / Plan
Assessment/plan
#Acute on chronic hypoxic respiratory failure likely secondary to lung cancer
-chest x ray with diffusely increased interstitial opacities bilaterally with more confluent appearance within the left apical and basilar segments. No new areas of airspace disease. No pleural effusions or pneumothorax.
-Wean O2 as tolerated
-CT chest 07/03/2024 Left upper lobe mass compatible with carcinoma. Since prior CT of November 26, 2023, evidence for interval increase of extension of the mass into the left side of the mediastinum. Nodular parenchymal opacities within both lower lobes
have increased compared to prior CT examination, morphologic appearance most suggestive of pneumonia. Interval improvement in reticulonodular and groundglass opacities within both upper lungs, mainly within the upper lobes, suggesting improvement in
pneumonia and/or lymphangitic spread of carcinoma.Minimal bilateral posterior pleural effusions.
-Oncology following.
# Recurrent urinary tract infection
# Prior history of E coli UTI, recently treated for bacterial prostatitis at previous admission
-ceftriaxone continued
-Urine cultures positive for E. coli
-ID consulted.
#generalized weakness/fall likely from metastatic disease versus UTI
-PT/OT consult
#orthostatic Hypotension possibly secondary to UTI versus malignancy versus adrenal insufficiency
-midodrine continued
-Check cortisol stimulation test in the AM, still pending
-Abdominal binders
-Cardiology input appreciated
-Hold diuretics.
-Midodrine 10mg BID.
#anemia of chronic disease
-hgb stable at 8.6
-no active bleeding
-Monitor CBC
#CKD stage 3b
-cr 1.3 today. Improving (baseline 1.6)
#Type 2 Dm
-HbA1c 8.0
-sliding scale insulin
-lantus 10u at bedtime
# History of angioedema on ZACHARY inhibitors
# Lung cancer of left lobe, squamous cell carcinoma
-CT chest concerning for local progression
-s/p SBRT, completed carbo/taxol 04/17/2024
-Currently on Keytruda immunotherapy alone
-Oncology consulted, recommendation appreciated needs PET at [facility] where his other scans are.
# HFpEF-recent echo in November LVEF 50 to 55%
-Euvolemic on exam.
-hold torsemide due to orthostasis
-Cardiology input appreciated. No need to repeat echo.
# Paroxysmal AFib
-Amiodarone stopped due to eosinophilia.
-Continue Eliquis 2.5 mg twice daily
-Cardiology following.
# CAD s/p CABG KINCAID-LAD 04/2015. PCI LM and LCX 06/2015
# 09/2022 post cath with patent KINCAID to LAD and stent and no new obstructive CAD.
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
-Continue Eliquis 2.5 mg twice daily, Plavix 75 mg daily
#BPH
-Flomax,finasteride continued
# COPD/Emphysema
# Former smoker
# Hypercholesterolemia
-Continue Crestor
DVT PPx: Eliquis
Code Status: Full code
Contacted Patient's son Jordan. Updated on current hospital course and plan for the day.
Anticipated Discharge: > 48 hours
Subjective/Interval History
-
patient seen and examined at bedside.Afebrile with VSS. on 3
Objective Data
-
Labs:
Laboratory Results
07/04/24
07:53
WBC 7.2
Hgb 8.9 L
Hct 27.2 L
Plt Count 247
Sodium 133 L
Potassium 5.0
Chloride 100
Carbon Dioxide 28
BUN 31 H
Creatinine 1.3
Glucose 100 H
Calcium 9.2
Vital Signs:
Vital Signs
Temp Pulse Resp BP Pulse Ox
97.7 F 70 20 129/63 93
07/04/24 11:04 07/04/24 12:54 07/04/24 11:04 07/04/24 12:54 07/04/24 11:04
I&O
07/03/24 07/04/24 07/05/24
06:59 06:59 06:59
Intake Total 900 / 900
Output Total 1050 / 1050
Balance -150 / -150
Review of Systems
-
All other systems: Reviewed and negative (except as documented)
Physical Exam
-
General: No Apparent Distress
Respiratory: Negative Wheezes or Rales
Cardiac: S1/S2
GI: Soft, Nontender and Nondistended
Musculoskeletal: No Edema
[2024-07-04 16:36] LABS: Troponin I 0.027 ng/ml
[2024-07-04 16:38] LABS: Glucose - Point of Care 178 mg/dl (70-99)
--- NOTE | 2024-07-04 16:43 | PTCARENOTE ---
Pt AAO x3, CHUA; in bed ofr shift; pt becomes dizzy/unsteady when sitting on edge of bed; refused OOB to chair activity. VSS. Telemetry:NSR with [facility]. On nc 3 lpm- puls eox 94%, no SOB noted. Abd soft, rounded, kelsey PO. Incont urine. resting in
bed at present, no c/o. Will continue to monitor.
[2024-07-04] MEDS: NOVOLOG FLEXPEN-LOW RESISTANCE 1 UNITS SC (16:47)
[2024-07-04] MEDS: VIBRAMYCIN 100 MG PO (20:40)
[2024-07-04 21:18] LABS: Glucose - Point of Care 232 mg/dl (70-99)
[2024-07-04] MEDS: LANTUS 0.1 UNITS SC (22:02)
[2024-07-05] VITALS (8 sets, daily range): BP systolic 69–158; BP diastolic 41–67; PULSE 61–63; BMI 25.8
[2024-07-05] MEDS: TYLENOL 650 MG PO (01:32)
[2024-07-05 04:29] LABS: Hematocrit 27.2 % (39.0-52.0); Hemoglobin 8.8 g/dL (13.0-18.0); Mean Corp Hgb Conc. 32.4 g/dL (33.0-37.0); Mean Corpuscular Hgb 28.9 pg (27.0-31.0); Mean Corpuscular Volume 89.2 fL (80.0-94.0); Mean Platelet Volume 9.2 fL (7.4-10.4); Platelet Count 271 10^3/uL (130-400); Red Blood Cell Count 3.05 10^6/uL (4.70-6.10); Red Cell Dist. Width 14.7 % (11.5-14.5); White Blood Cell Count 7.7 10^3/uL (4.8-10.8)
[2024-07-05 05:02] LABS: Blood Urea Nitrogen 37 mg/dl (9-20); Calcium 9.4 mg/dl (8.4-10.2); Carbon Dioxide 29 mmol/L (22-30); Chloride 98 mmol/L (98-107); Estimated Creatinine Clearance 44 ml/min; Glucose 136 mg/dl (70-99); Magnesium 2.1 mg/dl (1.6-2.3); Potassium 4.6 mmol/L (3.5-5.1); Sodium 133 mmol/L (135-145); eGFR 50.18
--- NOTE | 2024-07-05 07:35 | W.PN.HOSP.TC ---
Addendum entered and electronically signed by Cinthya Najera MD 07/05/24 19:18:
I saw and evaluated the patient independently. I reviewed the resident�s note and agree with findings and plan as documented by Dr. Tyler.
GENERAL: well developed, well nourished, male in no apparent distress--shivering in bed (returned from prostate US)
HEENT: NC/AT--O2 NC
HEART: regular rate and rhythm with ectopy, +S1, +S2
LUNGS : clear to auscultation bilaterally
ABDOM: soft, nontender, nondistended, + bowel sounds
EXT: no cyanosis, clubbing, or edema
NEUROLOGIC: grossly intact
generalized weakness/fall-- very orthostatic despite TID midodrine, florinef just added 07/05-- cosyntropin STIM test does NOT show adrenal insufficiency--cont midodrine TID, abdominal binder, PT/OT---apprec cards
acute hypoxemic respiratory failure-- most likely from progression of lung cancer--(less likely pneumonia, heart failure exacerbation (last echo November with preserved EF and mild aortic stenosis)--CXR with diffuse interstitial opacities, CT scan
chest with evidence for interval increase of extension of the mass into the left side of the mediastinum--wean O2 if able--if not, will need assessment for home O2--apprec cards
E. coli Urinary tract infection--has had in past--apprec ID, believe due to prostatitis --ceftriaxone discontinued--changed to doxycycline--prostate US noted, consider urology?
anemia of chronic disease most likely--no evidence for bleeding--stable HGB of 8.6
increased peripheral eosinophilia--likely due to malignancy or Ketruda (although predates starting Keytruda per ID)
CKD stage 3b--creatinine appears at baseline
Type 2 DM--sliding scale--lantus 10u at hs
History of angioedema on ZACHARY inhibitors
Lung cancer of left lobe, squamous cell carcinoma--Primary oncologist is Dr. Shin--s/p SBRT, completed carbo/taxol 04/17/2024--was on Keytruda--spoke with Dr. Shin, needs PET at [facility] where his other scans are...unclear now if prostate cancer
also present given prostate US report.....
Chronic diastolic congestive heart failure--hold torsemide--Ranexa continued
Paroxysmal AFib/CAD s/p CABG KINCAID-LAD 04/2015. PCI LM and LCX 06/2015--09/2022 post cath with patent KINCAID to LAD and stent and no new obstructive CAD--History of VT/VF cardiac arrest 04/2015 underwent urgent CABG as above--Continue Eliquis 2.5 mg twice
daily, Plavix 75 mg daily--apprec cards
BPH--Flomax, finasteride continued--can be associated with hypotension-- stop flomax....
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
Hypercholesterolemia--Continue Crestor
DVT PPx: Eliquis
Code Status: Full code
Original Note:
Today's Communication/Plan
-
.
Assessment / Plan
Assessment / Plan
Assessment/plan
#Acute on chronic hypoxic respiratory failure likely secondary to lung cancer
-chest x ray with diffusely increased interstitial opacities bilaterally with more confluent appearance within the left apical and basilar segments. No new areas of airspace disease. No pleural effusions or pneumothorax.
-Wean O2 as tolerated
-CT chest 07/03/2024 Left upper lobe mass compatible with carcinoma. Since prior CT of November 26, 2023, evidence for interval increase of extension of the mass into the left side of the mediastinum. Nodular parenchymal opacities within both lower lobes
have increased compared to prior CT examination, morphologic appearance most suggestive of pneumonia. Interval improvement in reticulonodular and groundglass opacities within both upper lungs, mainly within the upper lobes, suggesting improvement in
pneumonia and/or lymphangitic spread of carcinoma.Minimal bilateral posterior pleural effusions.
-Oncology following.
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
# Prior history of E coli UTI, recently treated for bacterial prostatitis at previous admission
-ID input appreciated
-Stop ceftriaxone, continue doxycycline 100 mg p.o. twice daily for 6 more weeks
-Prostate ultrasound to assess for stones
-Urine culture positive for E. coli
#generalized weakness/fall likely from metastatic disease versus UTI
-PT/OT consult
#orthostatic Hypotension possibly secondary to UTI versus malignancy versus adrenal insufficiency
-midodrine continued
-Cosyntropin stimulation test does not show evidence of adrenal insufficiency.
-Abdominal binders
-Cardiology input appreciated
-Hold diuretics.
-Midodrine 10mg 3 times daily, Florinef to help with orthostasis
#anemia of chronic disease
-hgb stable at 8.8
-no active bleeding
-Monitor CBC
#CKD stage 3b
-cr 1.4 today. Improving (baseline 1.6)
#Type 2 Dm
-HbA1c 8.0
-sliding scale insulin
-lantus 10u at bedtime
# History of angioedema on ZACHARY inhibitors
# Lung cancer of left lobe, squamous cell carcinoma
-CT chest concerning for local progression
-s/p SBRT, completed carbo/taxol 04/17/2024
-Currently on Keytruda immunotherapy alone
-Oncology consulted, recommendation appreciated needs PET at [facility] where his other scans are.
# HFpEF-recent echo in November LVEF 50 to 55%
-Euvolemic on exam.
-hold torsemide due to orthostasis
-Cardiology input appreciated. No need to repeat echo.
# Paroxysmal AFib
-Amiodarone stopped due to eosinophilia.
-Continue Eliquis 2.5 mg twice daily
-Cardiology following.
# CAD s/p CABG KINCAID-LAD 04/2015. PCI LM and LCX 06/2015
# 09/2022 post cath with patent KINCAID to LAD and stent and no new obstructive CAD.
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
-Continue Eliquis 2.5 mg twice daily, Plavix 75 mg daily
#BPH
-Flomax,finasteride continued
-Consideration to stop Flomax as this might be contributing to hypertension.
# COPD/Emphysema
# Former smoker
# Hypercholesterolemia
-Continue Crestor
DVT PPx: Eliquis
Code Status: Full code
Anticipated Discharge: 24 - 48 hours
Objective Data
-
Labs:
Laboratory Results
07/05/24
03:58
WBC 7.7
Hgb 8.8 L
Hct 27.2 L
Plt Count 271
Sodium 133 L
Potassium 4.6
Chloride 98
Carbon Dioxide 29
BUN 37 H
Creatinine 1.4 H
Glucose 136 H
Calcium 9.4
Vital Signs:
Vital Signs
Temp Pulse Resp BP Pulse Ox
97.5 F 53 18 157/67 96
07/05/24 03:23 07/05/24 03:23 07/05/24 03:23 07/05/24 03:23 07/05/24 03:23
I&O
07/04/24 07/05/24 07/06/24
06:59 06:59 06:59
Intake Total 900 / 900 1959
Output Total 1050 / 1050
Balance -150 / -150 1959
Review of Systems
-
All other systems: Reviewed and negative (Except as documented)
Physical Exam
-
General: No Apparent Distress
Respiratory: Clear to Auscultation
Cardiac: S1/S2
GI: Soft, Nontender and Nondistended
Musculoskeletal: No Edema
Neuro: Awake and Alert
[2024-07-05 08:14] LABS: Glucose - Point of Care 113 mg/dl (70-99)
[2024-07-05] MEDS: NOVOLOG FLEXPEN-LOW RESISTANCE SC ×2 (09:26→17:14)
[2024-07-05] MEDS: FLORINEF 0.1 MG PO (09:27)
[2024-07-05] MEDS: RANEXA EXTENDED RELEASE 500 MG PO ×2 (09:27→20:46)
[2024-07-05] MEDS: FLOMAX 0.4 MG PO (09:27)
[2024-07-05] MEDS: ELIQUIS 2.5 MG PO ×2 (09:27→20:46)
[2024-07-05] MEDS: PLAVIX 75 MG PO (09:27)
[2024-07-05] MEDS: ProAmatine 10 MG PO ×3 (09:27→17:14)
[2024-07-05] MEDS: VIBRAMYCIN 100 MG PO ×2 (09:27→20:46)
[2024-07-05] MEDS: CRESTOR 5 MG PO (09:27)
[2024-07-05] MEDS: FLORASTOR 250 MG PO ×2 (09:28→20:46)
[2024-07-05] MEDS: VISBIOME 1 CAP PO (09:29)
[2024-07-05] MEDS: PROSCAR 5 MG PO (09:29)
[2024-07-05] MEDS: COLACE 100 MG PO (09:29)
--- NOTE | 2024-07-05 10:10 | W.PN.ONC2 ---
Today's Communication / Plan
-
OP follow up upon discharge
Impression
Impression
weakness
recurrent UTI, recently treated x1mo for prostatitis
relapsed/recurrent lung cancer, currently on Keytruda. CT chest today concerning for local progression.
Plan
Plan
Await urine culture, continue Ceftriaxone. Would likely benefit from ID input w/ recurrent UTIs.
PT evaluation.
Chest pain may be related to hilar mass, though would consider further cardiac work-up; known to Dr. Ferguson
Further treatment of lung cancer TBD. Will likely obtain outpatient PET to assess status (done most recently at [facility] in March)
We will follow along
Subjective/Objective
Chief Complaint
no new complaints
Subjective
afebrile, no hypotension, 3L NC
family at bedside, questions answered
Vital Signs:
Vital Signs
Temp Pulse Resp BP Pulse Ox
97.8 F 55 18 158/66 92
07/05/24 07:24 07/05/24 07:24 07/05/24 07:24 07/05/24 07:24 07/05/24 07:24
Lab Results:
Laboratory Data
WBC 7.7 10^3/uL (4.8-10.8) 07/05/24 03:58
Hgb 8.8 g/dL (13.0-18.0) L 07/05/24 03:58
Plt Count 271 10^3/uL (130-400) 07/05/24 03:58
eGFR 50.18 07/05/24 03:58
Physical Exam
General: Well Developed, Well Nourished, No Apparent Distress and Conversant; Negative Appears in Distress
HEENT: Moist Mucous Membranes; Negative Jaundice
Cardiology: Normal Sinus Rhythm
Pulmonary: Rales
GI: Soft and Normal Bowel Sounds
Musculoskeletal: No Clubbing, No Cyanosis and No Edema
Extremities: No C/C/E
Neurology: Non Focal, No Lateralizing Symptoms and No Word Finding Difficulty
Skin: Warm and Dry
Psych: Calm and Intact Judgement/Insight
Review of Systems
Review of Systems
ROS notable for subjective, otherwise negative
--- NOTE | 2024-07-05 10:12 | W.PN.ID1 ---
Addendum entered and electronically signed by Danielle Anaya MD 07/05/24 16:02:
I saw and evaluated the patient. I reviewed the resident�s note and agree with findings and plan as documented in the resident�s note.
Interested in radiology read of prostate US
agree with Dr Rendon's note as written
AW
Original Note:
Date of Service
Date of Service: July 05, 2024
Today's Communication
awaiting prostate ultrasound.
continue doxycycline.
Assessment / Plan
Assessment -
Subjective -no urinary tract symptoms. No fevers, chills.
Objective-afebrile, vital signs stable, orthostatic hypotension.WBC count-6.6 upon admission, 7.2 on 07/04, hemoglobin-8.6 on 07/02, 8.9 on 07/04, normocytic anemia, platelet count at 247, hyponatremia upon arrival-133, (07/04, 133), serum creatinine at
1.9-improved to 1.3, HbA1c at 8.0, elevated troponin at 0.038, AEC-400.. Urine analysis pyuria with white blood cell count greater than 100, positive leukocyte esterase and many bacteria's noted. Urine culture positive for 100,000 CFU of E. coli.
RADHA-resistant to fluoroquinolones. UTIs x 5 in the past.
Diagnosis-recurrent chronic prostatitis.
Plan- prostate ultrasound pending.
Consider the possibility of a prostate stone causing recurrent chronic prostatitis. Consider urological evaluation for BPH with LUTS if prostate ultrasound is positive for prostate stone.
oral doxycycline 100 mg twice daily(day 2) for 6 weeks
History of hypereosinophilia in the past, currently absolute eosinophil count at 400.
Chief Complaint
-: Other (chest pain, and hypoxia)
Subjective / Review of Systems
Review of Systems: No Fever, No Chills, No Headache, No Pharyngitis, No Stiff Neck, Cough, No Sputum Production, Chest Pain, No Palpitations, No Abdominal Pain, No Nausea, No Vomiting, No Diarrhea, No Dysuria and Other (No hematuria)
Vital Signs / Physical Exam
Vital Signs
Vital Signs
Temp Pulse Resp BP Pulse Ox
97.8 F 55 18 158/66 92
07/05/24 07:24 07/05/24 07:24 07/05/24 07:24 07/05/24 07:24 07/05/24 07:24
Physical Exam
Constitutional: Comfortable
Head: Normocephalic
Cardiovascular: Regular Rate and S1/S2; Negative Murmur, Rub or Gallop
Pulmonary: Clear and Rales; Negative Wheezes or Rhonchi
Gastrointestinal: Soft, Non Tender, Non Distended and Normal Bowel Sounds
Genito-Urinary: Negative Sloan, Suprapubic Tenderness or CVA Tenderness
Extremities: Negative Edema
Skin: Warm
Neurological: Awake and Alert
Psychological: Calm
Objective Data
Lab Data
Lab Results
07/05/24 03:58
07/05/24 03:58
Estimated Creat Clear 44 ml/min 07/05/24 03:58
Total Bilirubin 0.2 mg/dl (0.2-1.3) 07/02/24 11:46
AST 16 U/L (17-59) L 07/02/24 11:46
ALT 11 U/L (0-50) 07/02/24 11:46
Alkaline Phosphatase 72 U/L (38-126) 07/02/24 11:46
Most recent labs reviewed.
Chest X-Ray: Image Reviewed and Report Reviewed
CT Scan: Image Reviewed and Report Reviewed
Microbiology: Report Reviewed
Micro Results:
07/02/24 13:56 Urine Culture - Final
Urine Escherichia coli
07/02/24 22:19 MRSA Screen - Final
Nose No Methicillin Resistant Staphylococcus aureus isolated.
[2024-07-05] MEDS: FLEET PHOSPHATE ENEMA-ADULT 135 ML RECTAL (10:47)
[2024-07-05] MEDS: DESENEX/MITRAZOL/ZEASORB 1 APPLIC TOPICAL ×2 (10:48→20:46)
[2024-07-05 12:39] LABS: Glucose - Point of Care 212 mg/dl (70-99)
[2024-07-05] MEDS: NOVOLOG FLEXPEN-LOW RESISTANCE 2 UNITS SC (12:43)
--- NOTE | 2024-07-05 16:52 | CM ---
Patient referrals sent to SNF facilities via all scripts. Pending response regarding available bed. CM will continue to follow for discharge planning needs.
Plan; SNF; referrals sent via all scripts
[2024-07-05 16:57] LABS: Glucose - Point of Care 111 mg/dl (70-99)
--- NOTE | 2024-07-05 17:01 | W.PN.CARDCBS ---
Today's Communication / Plan
-
Remains in bed and still having orthostasis. Continue to hold diuretics.
Needs to increase activity. Continue midodrine 10mg 3 times daily and adding Florinef.
Cont to treat UTI.
Creatinine overall stable at 1.4.
Lung cancer appears to have progressed by CT.
Impression / Plan
-
PCP: Dr. Villa
Power And Recovery Supervisor: Dr. Blackburn
Impression:
weakness/fatigue/fall
Acute hypoxemic respiratory failure
UTI
HFpEF
chest pain
Orthostatic hypotension
Paroxysmal atrial fibrillation
hypereosinophilia
abnormal CXR 05/25/24
Chronic Eliquis anticoagulation, off Amio due to eosinophilia
CAD
urgent CABGx1 KINCAID-LAD (VF/VT arrest) 04/2015
PCI LM and LCx 06/2015
s/p cath with patent KINCAID-LAD and stents, non new occlusive disease 10/22/22
currently managed with Plavix, Eliquis, Crestor, newly on Ranexa
Non-small cell lung cancer s/p radiation 11/2022 currently on Carbo/Taxol, Pembrolizumab
h/o VT/VF arrest in 2014 in the setting of left main stenosis
COPD/Emphysema
PVD - fem bypass and M[facility] LCF 2016
CEA B/L 2018
AAA 3.2cm
CKD 3a
HTN
HLD
KIM
RBBB
DM2
Former smoker
Previous cardiovascular diagnostic studies:
Echo 10/22/2022�EF 65 to 70%.� Mild MR.� Aortic valve gradients 20/8 mmHg peak/mean consistent with mild aortic valve stenosis.� Trace TR with PA pressure 30 to 35 mmHg
Echo 11/28/2023: EF 50-55%, akinesis of the basal inferior wall, mild w/ peak/mean gradients 19/10 mmHg
Cardiac cath: 10/22/2022: stable CAD with prior left main to left circumflex stent patent, chronic total occlusion RCA, patent KINCAID to LAD, elevated LVEDP.
Plan:
1. Lightheadedness/weakness/orthostatic hypotension:
-remains orthostatic. Cont Midodrine 10mg po tid. Cont Florinef
-Increase activity
-Continue to hold diuretics.
2. History of coronary artery disease-
-cath 2022 showing patent KINCAID to LAD graft and left main to circumflex stent.
-No ischemic changes on EKG today
-Ranexa recently added for chest pain-patient denies significant improvement in symptoms,
-Cont Med Rx.
Continue Plavix/Eliquis/high intensity statin
3.HFpEF- appears euvolemic on exam. Given his orthostasis,torsemide recently stopped in outpatient setting. Creatinine stable. Cont daily wts
Recent echo 11/28/2023 as noted above with preserved EF and mild . No need to repeat at this time. Has had angioedema on ZACHARY inhibitors in the past.
4. p afib - He has had no symptoms of recurrent atrial fibrillation. Amiodarone stopped due to eosinophilia. It would not be unexpected for AF to eventually recur at which point rhythm control versus rate control options can be further explored.
AAD Rx options are very limited given CKD, CAD and now intolerance to amiodarone so that reasonable options would be rate control versus PVI/ablation.
- Continue renal dosing Eliquis. Hemoglobin in stable range. Possible candidate for a Watchman device given his frequent falls.
-telemetry personally reviewed: NSR, PVCs, PACs, HRs 60s.
5.Hypereosinophilia- Amiodarone stopped 05/25/24.
6. UTI being treated with Ceftriaxone. ID has been consulted
7. acute hypoxic resp failure - thought to be due to progression from lung Ca, which was seen on CT chest 07/03/24. Continue O2 as needed.
continue KEytruda.
-oncology following, outpt PET to assess status.
-concern that CP could be due to hilar mass
8. PVD - was due to see Dr Sloan, vascular tomorrow in outpt setting.
Progress Note - Power And Recovery Supervisor
Subjective
Date of Service: July 05, 2024
feels fatigued. not out of bed.
Objective
Labs:
07/05/24 03:58
07/05/24 03:58
Labs
Hgb 8.8 g/dL (13.0-18.0) L 07/05/24 03:58
Hct 27.2 % (39.0-52.0) L 07/05/24 03:58
Plt Count 271 10^3/uL (130-400) 07/05/24 03:58
Sodium 133 mmol/L (135-145) L 07/05/24 03:58
Potassium 4.6 mmol/L (3.5-5.1) 07/05/24 03:58
BUN 37 mg/dl (9-20) H 07/05/24 03:58
Creatinine 1.4 mg/dL (0.7-1.3) H 07/05/24 03:58
Glucose 136 mg/dl (70-99) H 07/05/24 03:58
Troponins
07/04/24 07/04/24
09:40 15:57
Troponin I 0.038 H* 0.027 D
Vital Signs and I&O:
Vital Signs
Temp Pulse Resp BP Pulse Ox
97.6 F 63 20 136/62 95
07/05/24 15:37 07/05/24 15:37 07/05/24 15:37 07/05/24 15:37 07/05/24 15:37
Vital Signs
Temp Pulse Resp BP Pulse Ox
97.6 F 63 20 136/62 95
07/05/24 15:37 07/05/24 15:37 07/05/24 15:37 07/05/24 15:37 07/05/24 15:37
Intake & Output
07/03/24 07/04/24 07/05/24 07/06/24
06:59 06:59 06:59 06:59
Intake Total 900 / 900 1959
Output Total 1050 / 1050
Balance -150 / -150 1959
Physical Exam
Physical Exam
GEN: No distress, awake, Ox3
HEENT: supple, anicteric, mmm
LUNGS: scatt rhonchi
CV: Reg, S1/S2, 1/6 syst LSB, no gallop
ABD: soft, BS+, NT/ND
EXT: No edema
NEURO: Gross non-focal
SKIN: No rash
[2024-07-05 19:10] LABS: PSA, Total - Screen 0.44 ng/ml (0.0-4.0)
[2024-07-05 21:55] LABS: Glucose - Point of Care 138 mg/dl (70-99)
[2024-07-05] MEDS: LANTUS 0.1 UNITS SC (22:49)
[2024-07-06] VITALS (8 sets, daily range): BP systolic 69–164; BP diastolic 45–82; PULSE 70–86; O2SAT 93; BMI 23.8
[2024-07-06 05:50] LABS: Hematocrit 28.9 % (39.0-52.0); Hemoglobin 9.3 g/dL (13.0-18.0); Mean Corp Hgb Conc. 32.2 g/dL (33.0-37.0); Mean Platelet Volume 9.2 fL (7.4-10.4); Platelet Count 293 10^3/uL (130-400); Red Blood Cell Count 3.21 10^6/uL (4.70-6.10); Red Cell Dist. Width 14.6 % (11.5-14.5); White Blood Cell Count 7.7 10^3/uL (4.8-10.8)
[2024-07-06 06:49] LABS: Blood Urea Nitrogen 26 mg/dl (9-20); Calcium 9.1 mg/dl (8.4-10.2); Carbon Dioxide 27 mmol/L (22-30); Chloride 98 mmol/L (98-107); Estimated Creatinine Clearance 47 ml/min; Glucose 103 mg/dl (70-99); Magnesium 1.9 mg/dl (1.6-2.3); Potassium 4.7 mmol/L (3.5-5.1); Sodium 136 mmol/L (135-145); eGFR 54.85
[2024-07-06 07:15] LABS: Glucose - Point of Care 110 mg/dl (70-99)
--- NOTE | 2024-07-06 07:27 | W.PN.HOSP.TC ---
Addendum entered and electronically signed by Cinthya Najera MD 07/06/24 19:02:
I saw and evaluated the patient independently. I reviewed the resident�s note and agree with findings and plan as documented by Dr. Tyler.
GENERAL: well developed, well nourished, male in no apparent distress--shivering in bed (returned from prostate US)
HEENT: NC/AT--O2 NC
HEART: regular rate and rhythm with ectopy, +S1, +S2
LUNGS : clear to auscultation bilaterally
ABDOM: soft, nontender, nondistended, + bowel sounds
EXT: no cyanosis, clubbing, or edema
NEUROLOGIC: grossly intact
generalized weakness/fall-- very orthostatic despite TID midodrine, florinef just added 07/05, flomax stopped and Ranexa stopped (both can cause hypotension)-- cosyntropin STIM test does NOT show adrenal insufficiency--cont midodrine TID, abdominal
binder, PT/OT---apprec cards
acute hypoxemic respiratory failure-- most likely from progression of lung cancer--(less likely pneumonia, heart failure exacerbation (last echo November with preserved EF and mild aortic stenosis)--CXR with diffuse interstitial opacities, CT scan
chest with evidence for interval increase of extension of the mass into the left side of the mediastinum--wean O2 if able--if not, will need assessment for home O2--apprec cards
E. coli Urinary tract infection--has had in past--apprec ID, believe due to prostatitis --ceftriaxone discontinued--changed to doxycycline--prostate US noted, apprec urology--pelvic MRI pending
anemia of chronic disease most likely--no evidence for bleeding--stable HGB of 8.6
increased peripheral eosinophilia--likely due to malignancy or Ketruda (although predates starting Keytruda per ID)
CKD stage 3b--creatinine appears at baseline
Type 2 DM--sliding scale--lantus 10u at hs
History of angioedema on ZACHARY inhibitors
Lung cancer of left lobe, squamous cell carcinoma--Primary oncologist is Dr. Shin--s/p SBRT, completed carbo/taxol 04/17/2024--was on Keytruda--spoke with Dr. Shin, needs PET at [facility] where his other scans are...unclear now if prostate cancer
also present given prostate US report.....
Chronic diastolic congestive heart failure--hold torsemide--Ranexa continued
Paroxysmal AFib/CAD s/p CABG KINCAID-LAD 04/2015. PCI LM and LCX 06/2015--09/2022 post cath with patent KINCAID to LAD and stent and no new obstructive CAD--History of VT/VF cardiac arrest 04/2015 underwent urgent CABG as above--Continue Eliquis 2.5 mg twice
daily, Plavix 75 mg daily--apprec cards
BPH--Flomax, finasteride continued--can be associated with hypotension-- stop flomax....apprec urology
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
Hypercholesterolemia--Continue Crestor
DVT PPx: Eliquis
Code Status: Full code
Original Note:
Today's Communication/Plan
-
.
Assessment / Plan
Assessment / Plan
Assessment/plan
#Acute on chronic hypoxic respiratory failure likely secondary to lung cancer
-chest x ray with diffusely increased interstitial opacities bilaterally with more confluent appearance within the left apical and basilar segments. No new areas of airspace disease. No pleural effusions or pneumothorax.
-Wean O2 as tolerated
-CT chest 07/03/2024 Left upper lobe mass compatible with carcinoma. Since prior CT of November 26, 2023, evidence for interval increase of extension of the mass into the left side of the mediastinum. Nodular parenchymal opacities within both lower lobes
have increased compared to prior CT examination, morphologic appearance most suggestive of pneumonia. Interval improvement in reticulonodular and groundglass opacities within both upper lungs, mainly within the upper lobes, suggesting improvement in
pneumonia and/or lymphangitic spread of carcinoma.Minimal bilateral posterior pleural effusions.
-Consideration for Home 02 assessment on discharge.
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
# Prior history of E coli UTI, recently treated for bacterial prostatitis at previous admission
-Urine culture positive for E. coli
-ID input appreciated
-Stop ceftriaxone, continue doxycycline 100 mg p.o. twice daily for 6 more weeks
-Prostate ultrasound to assess for stones 07/05- 1.4cm focal hypoechoic lesion in the right mid peripheral zone of the prostate gland.
-PSA 0.44
-Urology consulted
-MRI pelvis to evaluate abscess, ordered. Pending
#generalized weakness/fall likely from metastatic disease versus UTI
-PT/OT consult
#orthostatic Hypotension possibly secondary to UTI versus malignancy versus adrenal insufficiency
-Cosyntropin stimulation test does not show evidence of adrenal insufficiency.
-Abdominal binders
-Cardiology input appreciated
-Hold diuretics.
-Midodrine 10mg 3 times daily, Florinef to help with orthostasis
-Stop Ranexa
#anemia of chronic disease
-hgb stable at 8.8
-no active bleeding
-Monitor CBC
#CKD stage 3b
-cr 1.4 today. Improving (baseline 1.6)
#Type 2 Dm
-HbA1c 8.0
-sliding scale insulin
-lantus 10u at bedtime
# History of angioedema on ZACHARY inhibitors
# Lung cancer of left lobe, squamous cell carcinoma
-CT chest concerning for local progression
-s/p SBRT, completed carbo/taxol 04/17/2024
-Currently on Keytruda immunotherapy alone
-Oncology consulted, recommendation appreciated needs PET at [facility] where his other scans are.
# HFpEF-recent echo in November LVEF 50 to 55%
-Euvolemic on exam.
-hold torsemide due to orthostasis
-Weight down by 7kg
-Cardiology input appreciated. No need to repeat echo.
# Paroxysmal AFib
-Amiodarone stopped due to eosinophilia.
-Continue Eliquis 2.5 mg twice daily
-Cardiology following.
# CAD s/p CABG KINCAID-LAD 04/2015. PCI LM and LCX 06/2015
# 09/2022 post cath with patent KINCAID to LAD and stent and no new obstructive CAD.
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
-Continue Eliquis 2.5 mg twice daily, Plavix 75 mg daily
#BPH
-Flomax,finasteride continued
-Consideration to stop Flomax as this might be contributing to hypertension.
# COPD/Emphysema
# Former smoker
# Hypercholesterolemia
-Continue Crestor
DVT PPx: Eliquis
Code Status: Full code
Anticipated Discharge: 24 - 48 hours
Subjective/Interval History
-
Date of Service: July 06, 2024
Objective Data
-
Labs:
Laboratory Results
07/06/24 07/06/24
04:52 04:53
WBC 7.7
Hgb 9.3 L
Hct 28.9 L
Plt Count 293
Sodium 136
Potassium 4.7
Chloride 98
Carbon Dioxide 27
BUN 26 H
Creatinine 1.3
Glucose 103 H
Calcium 9.1
Vital Signs:
Vital Signs
Temp Pulse Resp BP Pulse Ox
97.9 F 75 20 122/53 92
07/06/24 03:00 07/06/24 03:00 07/06/24 03:00 07/06/24 03:00 07/06/24 03:00
I&O
07/05/24 07/06/24 07/07/24
06:59 06:59 06:59
Intake Total 1959 930 / 930
Output Total 1500 / 1500
Balance 1959 -570 / -570
Review of Systems
-
All other systems: Reviewed and negative (except as documented)
Physical Exam
-
General: No Apparent Distress and Other (on 3l NC)
Respiratory: Clear to Auscultation
Cardiac: S1/S2
GI: Soft, Nontender and Nondistended
Musculoskeletal: No Edema
Neuro: Awake
--- NOTE | 2024-07-06 09:06 | W.PN.CARDCBS ---
Addendum entered and electronically signed by Corey Lennon MD 07/06/24 18:24:
PMH/PSH/SH/FH: Reviewed
Still very lightheaded when sitting up. When lying supine he is comfortable. Urology has evaluated, MRI to be performed looking for abscess. Absent that, no surgical intervention and no need to interrupt anticoagulation.
allergies: Amiodarone, ZACHARY inhibitors, contrast
Outpatient meds: Plavix, Eliquis, insulin, midodrine 10 3 times daily, Ranexa tamsulosin, torsemide as needed
Current medications: Apixaban 2.5 twice daily, Plavix 75 mg daily, midodrine 10 3 times daily, Ranexa now on hold, rosuvastatin, Doxy, Florinef 0.1 daily
ROS: Negative except for above
114/61, pulse 72, weight is 78.6 kg, intact. -6.5 kg no recent standing blood pressures, last was 63 systolic, chronically ill-appearing, no acute distress, lungs are relatively clear, head neck exam unremarkable, regular rate and rhythm very soft
systolic murmur
Hemoglobin is 9.3, platelets are 293, white count of 7.7
BUN and creatinine are 26 and 1.3
Impression:
See below
From a cardiac standpoint the major issue remains orthostatic hypotension.
He is already on high-dose midodrine and fludrocortisone has been added. An abdominal binder has been ordered. Physical therapy has discouraged the use of compression stockings given his vascular disease/skin grafts. We will check with vascular
surgery to see if compression stockings are an option.
Ranexa is currently on hold in the hopes that that we will reduce orthostasis. Will continue to observe.
For now, patient is essentially bedbound. Unfortunately there are few good options.
If urologic surgery is required he could proceed at acceptable cardiac risk. Eliquis can be held if needed. If Plavix is to be discontinued, aspirin 81 mg daily should be substituted. If all antiplatelet agents stop there will be small but
nonzero risk of stent thrombosis and myocardial infarction.
Original Note:
Today's Communication / Plan
-
Hold Ranexa to see if this helps with orthostasis
Continue Florinef and midodrine
Urology has been consulted
Impression / Plan
-
PCP: Dr. Villa
Inspector Golf Ball: Dr. Blackburn
Impression:
Presented 07/02/2024 w/ weakness/fatigue/fall
Acute hypoxemic respiratory failure
UTI
chest pain
HFpEF
Orthostatic hypotension
Paroxysmal atrial fibrillation
hypereosinophilia
abnormal CXR 05/25/24
Chronic Eliquis anticoagulation, off Amio due to eosinophilia
CAD
urgent CABGx1 KINCAID-LAD (VF/VT arrest) 04/2015
PCI LM and LCx 06/2015
s/p cath with patent KINCAID-LAD and stents, non new occlusive disease 10/22/22
currently managed with Plavix, Eliquis, Crestor, Ranexa
Non-small cell lung cancer s/p radiation 11/2022 currently on Carbo/Taxol, Pembrolizumab
h/o VT/VF arrest in 2014 in the setting of left main stenosis
COPD/Emphysema
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
CEA B/L 2018
AAA 3.2cm
CKD 3a
HTN
HLD
KIM
RBBB
DM2
Former smoker
Echo 10/22/2022�EF 65 to 70%.� Mild MR.� Aortic valve gradients 20/8 mmHg peak/mean consistent with mild aortic valve stenosis.� Trace TR with PA pressure 30 to 35 mmHg
Echo 11/28/2023: EF 50-55%, akinesis of the basal inferior wall, mild w/ peak/mean gradients 19/10 mmHg
Cardiac cath: 10/22/2022: stable CAD with prior left main to left circumflex stent patent, chronic total occlusion RCA, patent KINCAID to LAD, elevated LVEDP.
Plan:
Lightheadedness/weakness/orthostatic hypotension:
-remains orthostatic, PT/OT attempted to sit pt up this am and SBP dropped to 69 mmHg and pt was symptomatic
-Cont Midodrine 10mg po tid. Cont Florinef 0.1 mg (added 07/05). T/c increasing
-Utilize Abdominal; unable to wear compression stockings
-Hold Ranexa to see if BP improves as side effect can be orthostatic hypotension
-Increase activity
-Continue to hold diuretics.
History of coronary artery disease-
-cath 2022 showing patent KINCAID to LAD graft and left main to circumflex stent.
-No ischemic changes on EKG today
-Ranexa recently added for chest pain as outpatient-patient denies significant improvement in symptoms. Concerned that hypotension can be exacerbating hypoperfusion to coronaries. Would HOLD Ranexa 07/06 as this can cause orthostatic hypotension
-Cont Med Rx.
Continue Plavix/Eliquis/high intensity statin
HFpEF- appears euvolemic on exam.
-Given his orthostasis,torsemide recently stopped in outpatient setting.
-Creatinine stable. Cont daily wts
-Recent echo 11/28/2023 as noted above with preserved EF and mild . No need to repeat at this time.
-Has had angioedema on ZACHARY inhibitors in the past.
Paroxysmal afib - He has had no symptoms of recurrent atrial fibrillation.
-Amiodarone stopped due to eosinophilia. It would not be unexpected for AF to eventually recur at which point rhythm control versus rate control options can be further explored.
-AAD Rx options are very limited given CKD, CAD and now intolerance to amiodarone so that reasonable options would be rate control versus PVI/ablation.
-Continue renal dosing Eliquis. Hemoglobin in stable range.
-telemetry personally reviewed: NSR, PVCs, PACs, HRs 60s. 3 beats NSVT x 2 late evening 07/05 (K+ and mag are stable)
Hypereosinophilia- Amiodarone stopped 05/25/24.
UTI being treated with Ceftriaxone. ID has been consulted. Prostate ultrasound 07/05 w/ 1.4 cm focal hypoechoic lesion in the right mid peripheral zone of the prostate gland. Urology has now been consulted. If urologic procedure is needed can hold
Eliqus
Acute hypoxic resp failure - thought to be due to progression from lung Ca, which was seen on CT chest 07/03/24. Continue O2 as needed.
-continue Keytruda.
-oncology following, outpt PET to assess status. Now with 1.4 cm focal hypoechoic lesion in the right mid peripheral zone of the prostate gland. CA??
-concern that CP could be due to hilar mass
PVD - Follows with Dr Sloan
d/w pt, nursing, primary service
Progress Note - Inspector Golf Ball
Subjective
Date of Service: July 06, 2024
Patient seen and examined. Patient lying in bed. Patient reports when physical therapy attempted to sit him up he developed dizziness and chest tightness. Systolic blood pressure dropped to 69 he was laid back in supine position and symptoms
improved. He currently is chest pain-free.
Objective
Labs:
07/06/24 04:53
07/06/24 04:52
Labs
Hgb 9.3 g/dL (13.0-18.0) L 07/06/24 04:53
Hct 28.9 % (39.0-52.0) L 07/06/24 04:53
Plt Count 293 10^3/uL (130-400) 07/06/24 04:53
Sodium 136 mmol/L (135-145) 07/06/24 04:52
Potassium 4.7 mmol/L (3.5-5.1) 07/06/24 04:52
BUN 26 mg/dl (9-20) H 07/06/24 04:52
Creatinine 1.3 mg/dL (0.7-1.3) 07/06/24 04:52
Glucose 103 mg/dl (70-99) H 07/06/24 04:52
Troponins
07/04/24 07/04/24
09:40 15:57
Troponin I 0.038 H* 0.027 D
Vital Signs and I&O:
Vital Signs
Temp Pulse Resp BP Pulse Ox
97.7 F 72 20 114/61 93
07/06/24 07:57 07/06/24 07:57 07/06/24 07:57 07/06/24 07:57 07/06/24 07:57
Vital Signs
Temp Pulse Resp BP Pulse Ox
97.7 F 72 20 114/61 93
07/06/24 07:57 07/06/24 07:57 07/06/24 07:57 07/06/24 07:57 07/06/24 07:57
Intake & Output
07/04/24 07/05/24 07/06/24 07/07/24
06:59 06:59 06:59 06:59
Intake Total 900 / 900 1959 930 / 930
Output Total 1050 / 1050 1500 / 1500
Balance -150 / -150 1959 -570 / -570
Physical Exam
Physical Exam
GEN: No distress, awake, Ox3 lying in bed,
HEENT: supple, anicteric, mmm
LUNGS: CTA anteriorly, no wheezes/rales
CV: Reg, S1/S2, 1/6 syst murmur
ABD: soft, BS+, NT/ND
EXT: No edema, clubbing or cyanosis
NEURO: Gross non-focal
SKIN: No rash, warm, dry, pink
--- NOTE | 2024-07-06 09:18 | W.PN.ID1 ---
Addendum entered and electronically signed by Danielle Anaya MD 07/06/24 16:08:
I saw and evaluated the patient. I reviewed the resident�s note and agree with findings and plan as documented in the resident�s note.
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
Prostate US possible abscess vs adenocarcinoma vs stone - would peruse definitive diagnosis
await urology input
continue doxycycline plan 6 week course
AW
Original Note:
Date of Service
Date of Service: July 06, 2024
Today's Communication
Continue doxycycline
Urology inputs appreciated.
Assessment / Plan
Assessment -
Subjective -no urinary tract symptoms. No fevers, chills.
Objective-afebrile, vital signs stable, orthostatic hypotension.WBC count-6.6 upon admission, 7.2 on 07/04, hemoglobin-8.6 on 07/02, 8.9 on 07/04, normocytic anemia, platelet count at 247, hyponatremia upon arrival-133, (07/04, 133), serum creatinine at
1.9-improved to 1.3, HbA1c at 8.0, elevated troponin at 0.038, AEC-400. Urine analysis pyuria with white blood cell count greater than 100, positive leukocyte esterase and many bacteria's noted. Urine culture positive for 100,000 CFU of E. coli.
RADHA-resistant to fluoroquinolones. UTIs x 5 in the past.
Diagnosis-recurrent chronic prostatitis.
Plan- prostate ultrasound positive for 1.4cm hypoechoic collection - could be an abscess, cyst or adenocarcinoma. Urology consulted.
Consider the possibility of a prostate stone causing recurrent chronic prostatitis. Consider urological evaluation for BPH with LUTS if prostate ultrasound is positive for prostate stone.
oral doxycycline 100 mg twice daily(day 3) for 6 weeks
History of hypereosinophilia in the past, currently absolute eosinophil count at 400.
Chief Complaint
-: Other (chest pain, and hypoxia)
Subjective / Review of Systems
Review of Systems: No Fever, No Chills, No Headache, Cough, No Sputum Production, Chest Pain, No Palpitations, No Abdominal Pain, No Nausea, No Diarrhea and No Dysuria
Vital Signs / Physical Exam
Vital Signs
Vital Signs
Temp Pulse Resp BP Pulse Ox
97.7 F 72 20 114/61 93
07/06/24 07:57 07/06/24 07:57 07/06/24 07:57 07/06/24 07:57 07/06/24 07:57
Physical Exam
Constitutional: Comfortable
Cardiovascular: Regular Rate and S1/S2; Negative Murmur, Rub or Gallop
Pulmonary: Clear; Negative Wheezes, Rales or Rhonchi
Gastrointestinal: Soft, Non Tender, Non Distended and Normal Bowel Sounds
Genito-Urinary: Sloan
Extremities: Negative Edema
Neurological: Awake and Alert
Psychological: Calm
Objective Data
Lab Data
Lab Results
07/06/24 04:53
07/06/24 04:52
Estimated Creat Clear 47 ml/min 07/06/24 04:52
Total Bilirubin 0.2 mg/dl (0.2-1.3) 07/02/24 11:46
AST 16 U/L (17-59) L 07/02/24 11:46
ALT 11 U/L (0-50) 07/02/24 11:46
Alkaline Phosphatase 72 U/L (38-126) 07/02/24 11:46
Most recent labs reviewed.
Microbiology: Report Reviewed
Micro Results:
07/02/24 13:56 Urine Culture - Final
Urine Escherichia coli
07/02/24 22:19 MRSA Screen - Final
Nose No Methicillin Resistant Staphylococcus aureus isolated.
Other: Image Reviewed, Report Reviewed and Discussed w/
[2024-07-06] MEDS: NOVOLOG FLEXPEN-LOW RESISTANCE SC ×2 (10:07→16:59)
[2024-07-06] MEDS: DESENEX/MITRAZOL/ZEASORB 1 APPLIC TOPICAL ×2 (10:09→21:13)
[2024-07-06] MEDS: FLORASTOR 250 MG PO ×2 (10:10→21:12)
[2024-07-06] MEDS: VISBIOME 1 CAP PO (10:10)
[2024-07-06] MEDS: COLACE 100 MG PO (10:10)
[2024-07-06] MEDS: ProAmatine 10 MG PO ×3 (10:10→17:01)
[2024-07-06] MEDS: PROSCAR 5 MG PO (10:11)
[2024-07-06] MEDS: FLORINEF 0.1 MG PO (10:11)
[2024-07-06] MEDS: PLAVIX 75 MG PO (10:11)
[2024-07-06] MEDS: ELIQUIS 2.5 MG PO ×2 (10:11→21:12)
[2024-07-06] MEDS: VIBRAMYCIN 100 MG PO ×2 (10:12→21:12)
[2024-07-06] MEDS: RANEXA EXTENDED RELEASE PO (10:12)
[2024-07-06] MEDS: CRESTOR 5 MG PO (10:12)
[2024-07-06] MEDS: FLUSH (NSS) 1 FLUSH IV (10:13)
[2024-07-06] MEDS: TYLENOL 650 MG PO ×3 (10:21→21:12)
[2024-07-06 12:56] LABS: Glucose - Point of Care 212 mg/dl (70-99)
[2024-07-06] MEDS: NOVOLOG FLEXPEN-LOW RESISTANCE 2 UNITS SC (13:00)
--- NOTE | 2024-07-06 16:00 | PTCARENOTE ---
Pt AAO x3, CHUA; can sit on side of bed with assistance- becomes dizzy; BP decreased with position changes. Refuses OOB to chair activity. VSS. Telemetry:NSR with BBB. Maintained on nc 3 lpm- pulse ox 93%, pt denies SOB. Abd soft, rounded, kelsey
PO. Incont urine/ voids in urinal at times- clear curt urine. Afebrile; skin warm and dry. Resting in bed at present, no c/o. Will continue to monitor.
[2024-07-06 16:48] LABS: Glucose - Point of Care 132 mg/dl (70-99)
--- NOTE | 2024-07-06 17:16 | W.PN.URO.CBU ---
Today's Communication / Plan
-
await mri
Assessment / Plan
-
no clinical evidence prostate abscess more likely immuno suppressed pt with diabetes Will await mri to see if abcess if so will need to come off anticoagulants and discuss needle or surgical unroofing. If no abscess there is no procedure
that is safe to reduce prostatic stone s and have any benefit of prostatitis prevention
Diagnosis
-
Date of Service: July 06, 2024
-
Patient Diagnosis:recurrent uti possibl;r prostatitis but pt with bph partil rention diabetic and on keytruda for metastaixc sq cell lung ca hAD prostae u/s shwing non diagnotic 1 cm mass possible abces
Post Op Day:
Subjective
-
feeling better
Objective
-
Vital Signs
Temp Pulse Resp BP Pulse Ox
98.1 F 61 16 135/59 93
07/06/24 15:16 07/06/24 17:01 07/06/24 15:16 07/06/24 17:01 07/06/24 16:00
Intake and Output
07/05/24 07/06/24 07/07/24
06:59 06:59 06:59
Intake Total 1959 930 / 930
Output Total 1500 / 1500
Balance 1959 -570 / -570
Intake:
Oral fluids 1959 930 / 930
Output:
Urine, Voided 1500 / 1500
Other:
How many times incontinent 2
MODERATE amount urine
How many times incontinent 2
SATURATED amount urine
Laboratory Results
07/06/24 04:53
07/06/24 04:52
Review of Systems
-
: Difficulty Voiding
Physical Exam
-
General - well developed, well nourished, no acute distress
Chest - clear bilaterally
Abdomen - soft, non-tender, positive bowel sounds, no CVAT, no incisional pain or distention
Genitalia - normal
Rectal - normal
Skin - warm & dry with no rash
Neuro - AOx3, no motor deficits
Extremities - no clubbing, no cyanosis, no edema
Incision - clean, dry
Dressing - clean, dry, intact
Care Review
Data Reviewed
Discussed with: Nursing
CT Scan: Image Pers Reviewed
Ultrasound: Image Pers Reviewed
[2024-07-06 21:08] LABS: Glucose - Point of Care 137 mg/dl (70-99)
[2024-07-06] MEDS: LANTUS 0.1 UNITS SC (21:13)
[2024-07-07 03:59] VITALS: BP 143/68
[2024-07-07 06:00] VITALS: BMI 24.7
[2024-07-07 07:35] VITALS: BP 93/49; BP 95/43; BP 96/50; PULSE 78; PULSE 83
[2024-07-07 07:44] LABS: Glucose - Point of Care 119 mg/dl (70-99)
[2024-07-07] MEDS: NOVOLOG FLEXPEN-LOW RESISTANCE SC ×2 (08:00→16:40)
[2024-07-07 08:32] LABS: Hematocrit 30.2 % (39.0-52.0); Hemoglobin 9.8 g/dL (13.0-18.0); Mean Corp Hgb Conc. 32.5 g/dL (33.0-37.0); Mean Corpuscular Hgb 29.9 pg (27.0-31.0); Mean Corpuscular Volume 92.1 fL (80.0-94.0); Mean Platelet Volume 8.8 fL (7.4-10.4); Platelet Count 268 10^3/uL (130-400); Red Blood Cell Count 3.28 10^6/uL (4.70-6.10); Red Cell Dist. Width 14.6 % (11.5-14.5); White Blood Cell Count 8.9 10^3/uL (4.8-10.8)
--- NOTE | 2024-07-07 08:44 | W.PN.CARDCBS ---
Addendum entered and electronically signed by Leroy Quezada MD 07/07/24 09:46:
Patient seen and examined
Agree with MARY Pérez's note and assessment
Agree with MARY Pérez's plan
Discussed plan with patient at bedside
Exam �
����Physical Exam
�
���������������������General:��no apparent distress, not acutely ill
�
���������������������������Neck:��supple. no meningeal signs. normal psoterior pharynx
������������������������
���������������������������Heart:��s1/s2 regular rate and rhythm, no murmur. equal radial pulses.
�
��������������������������Lungs: ��no acute respiratory distress. clear bilaterally
�
����������������������Abdomen:�normal bowel sounds. not tender. no CVAT
�
��������������������������Neuro:��alert and oriented. no focal neurological deficits
�
������������������������������Skin: ��no rash
�
�����������������������Psychiatric:�well kept. interactive and cooperative
�
�����������������������Extremities:��no edema. no calf tenderness. negative homans. good distal pulses
�
�
�
��
�
Impression:
Presented 07/02/2024 w/ weakness/fatigue/fall
Acute hypoxemic respiratory failure
UTI
chest pain
Acute HFpEF
Elevated Troponin
Orthostatic hypotension
Paroxysmal atrial fibrillation
hypereosinophilia
abnormal CXR 05/25/24
Chronic Eliquis anticoagulation, off Amio due to eosinophilia
CAD
urgent CABGx1 KINCAID-LAD (VF/VT arrest) 04/2015
PCI LM and LCx 06/2015
s/p cath with patent KINCAID-LAD and stents, non new occlusive disease 10/22/22
currently managed with Plavix, Eliquis, Crestor, RanexaNon-small cell lung cancer s/p radiation 11/2022 currently on Carbo/Taxol, Pembrolizumab
h/o VT/VF arrest in 2014 in the setting of left main stenosis
COPD/Emphysema
PVD - fem bypass and [employer] [facility] 2016
CEA B/L 2018
AAA 3.2cm
CKD 3a
HTN
HLD
KIM
RBBB
DM2
Former smoker
Echo 10/22/2022�EF 65 to 70%.� Mild MR.� Aortic valve gradients 20/8 mmHg peak/mean consistent with mild aortic valve stenosis.� Trace TR with PA pressure 30 to 35 mmHg
Echo 11/28/2023: EF 50-55%, akinesis of the basal inferior wall, mild w/ peak/mean gradients 19/10 mmHg
Cardiac cath: 10/22/2022: stable CAD with prior left main to left circumflex stent patent, chronic total occlusion RCA, patent KINCAID to LAD, elevated LVEDP.
Plan:
-MRI scheduled for 07/07/24 to evaluate for possible prostate abscess. If patient has prostate abscess then he will need surgery
-Remains in SR with h/o paroxysmal Afib. It would not be unexpected for AF to eventually recur at which point rhythm control versus rate control options can be further explored.
-Outpatient dose of Eliquis 2.5 mg BID (age 83, wt 81 kg, Cre 1.3, but usually greater than 1.5) has been continued. If patient needs surgery then Eliquis can be held and restarted when safe from a surgical standpoint.
-Amiodarone previously stopped due to eosinophilia
-Patient continues with symptomatic orthostasis. No updated orthostatic VS for 07/07/24.
-Outpatient dose of midodrine 10 mg TID continued.
-New to Florinef 0.1 mg daily. Will increase to 0.2 mg daily and follow blood pressures. Unfortunately to avoid orthostasis sometimes we have to run blood pressures relatively high in the 170s to 180s systolic range and close to 100 diastolic but
we will follow closely. His advanced deconditioning will limit any medical therapies introduced.
-Outpatient dose of Ranexa placed on hold to see if orthostasis improves. Ranexa had just been added prior to admission for chest pain.
-Troponin 0.038 on admission and will be managed as a nonischemic myocardial injury Troponin elevation
-Patient was taking torsemide 10 mg daily PRN weight gain prior to admission. Recorded bed scale weight is up 6 lbs overnight, but no increased edema, SOB or hypoxia. Cont to follow.
-EF 50-55% by echo 11/28/23
-Cannot take BB due to orthostasis
-Has had angioedema on ZACHARY inhibitors in the past.
Original Note:
Today's Communication / Plan
-
Increased Florinef 0.2 mg daily
MRI to look for prostate abscess today
Impression / Plan
-
PCP: Dr. Villa
Ssis Ssrs Developer: Dr. Blackburn
Impression:
Presented 07/02/2024 w/ weakness/fatigue/fall
Acute hypoxemic respiratory failure
UTI
chest pain
Acute HFpEF
Elevated Troponin
Orthostatic hypotension
Paroxysmal atrial fibrillation
hypereosinophilia
abnormal CXR 05/25/24
Chronic Eliquis anticoagulation, off Amio due to eosinophilia
CAD
urgent CABGx1 KINCAID-LAD (VF/VT arrest) 04/2015
PCI LM and LCx 06/2015
s/p cath with patent KINCAID-LAD and stents, non new occlusive disease 10/22/22
currently managed with Plavix, Eliquis, Crestor, Ranexa
Non-small cell lung cancer s/p radiation 11/2022 currently on Carbo/Taxol, Pembrolizumab
h/o VT/VF arrest in 2014 in the setting of left main stenosis
COPD/Emphysema
PVD - fem bypass and [employer] LCF 2016
CEA B/L 2018
AAA 3.2cm
CKD 3a
HTN
HLD
KIM
RBBB
DM2
Former smoker
Echo 10/22/2022�EF 65 to 70%.� Mild MR.� Aortic valve gradients 20/8 mmHg peak/mean consistent with mild aortic valve stenosis.� Trace TR with PA pressure 30 to 35 mmHg
Echo 11/28/2023: EF 50-55%, akinesis of the basal inferior wall, mild w/ peak/mean gradients 19/10 mmHg
Cardiac cath: 10/22/2022: stable CAD with prior left main to left circumflex stent patent, chronic total occlusion RCA, patent KINCAID to LAD, elevated LVEDP.
Plan:
-MRI scheduled for 07/07/24 to evaluate for possible prostate abscess. If patient has prostate abscess then he will need surgery
-Remains in SR with h/o paroxysmal Afib. It would not be unexpected for AF to eventually recur at which point rhythm control versus rate control options can be further explored.
-Outpatient dose of Eliquis 2.5 mg BID (age 83, wt 81 kg, Cre 1.3, but usually greater than 1.5) has been continued. If patient needs surgery then Eliquis can be held and restarted when safe from a surgical standpoint.
-Amiodarone previously stopped due to eosinophilia
-Patient continues with symptomatic orthostasis. No updated orthostatic VS for 07/07/24.
-Outpatient dose of midodrine 10 mg TID continued.
-New to Florinef 0.1 mg daily.
-Outpatient dose of Ranexa placed on hold to see if orthostasis improves. Ranexa had just been added prior to admission for chest pain.
-Troponin 0.038 on admission and will be managed as a nonischemic myocardial injury Troponin elevation
-Patient was taking torsemide 10 mg daily PRN weight gain prior to admission. Recorded bed scale weight is up 6 lbs overnight, but no increased edema, SOB or hypoxia. Cont to follow.
-EF 50-55% by echo 11/28/23
-Cannot take BB due to orthostasis
-Has had angioedema on ZACHARY inhibitors in the past.
Progress Note - Ssis Ssrs Developer
Subjective
Date of Service: July 07, 2024
He is not lightheaded in bed, but feels lightheaded with standing
Objective
Labs:
07/07/24 08:18
Labs
Hgb 9.8 g/dL (13.0-18.0) L 07/07/24 08:18
Hct 30.2 % (39.0-52.0) L 07/07/24 08:18
Plt Count 268 10^3/uL (130-400) 07/07/24 08:18
Sodium 136 mmol/L (135-145) 07/06/24 04:52
Potassium 4.7 mmol/L (3.5-5.1) 07/06/24 04:52
BUN 26 mg/dl (9-20) H 07/06/24 04:52
Creatinine 1.3 mg/dL (0.7-1.3) 07/06/24 04:52
Glucose 103 mg/dl (70-99) H 07/06/24 04:52
Troponins
07/04/24 07/04/24
09:40 15:57
Troponin I 0.038 H* 0.027 D
Vital Signs and I&O:
Vital Signs
Temp Pulse Resp BP Pulse Ox
98.5 F 81 18 143/68 94
07/07/24 03:59 07/07/24 03:59 07/07/24 03:59 07/07/24 03:59 07/07/24 03:59
Vital Signs
Temp Pulse Resp BP Pulse Ox
98.5 F 81 18 143/68 94
07/07/24 03:59 07/07/24 03:59 07/07/24 03:59 07/07/24 03:59 07/07/24 03:59
Intake & Output
07/05/24 07/06/24 07/07/24 07/08/24
06:59 06:59 06:59 06:59
Intake Total 1959 930 / 930 900 / 900
Output Total 1500 / 1500 600 / 600
Balance 1959 -570 / -570 300 / 300
Physical Exam
Physical Exam
GEN: AAOx3
HEENT: mmm
LUNGS: No audible wheeze
CV: SR on tele
ABD: ND
EXT: No edema
NEURO: Gross non-focal
SKIN: No rash
[2024-07-07] MEDS: VIBRAMYCIN 100 MG PO ×2 (08:49→20:35)
[2024-07-07] MEDS: FLORASTOR 250 MG PO ×2 (08:49→20:35)
[2024-07-07] MEDS: VISBIOME 1 CAP PO (08:50)
[2024-07-07] MEDS: FLORINEF 0.1 MG PO ×2 (08:50→10:45)
[2024-07-07] MEDS: ELIQUIS 2.5 MG PO ×2 (08:50→20:35)
[2024-07-07] MEDS: DESENEX/MITRAZOL/ZEASORB 1 APPLIC TOPICAL ×2 (08:50→20:35)
[2024-07-07] MEDS: PROSCAR 5 MG PO (08:50)
[2024-07-07] MEDS: TYLENOL 650 MG PO ×3 (08:50→21:47)
[2024-07-07] MEDS: CRESTOR 5 MG PO (08:50)
[2024-07-07] MEDS: PLAVIX 75 MG PO (08:50)
[2024-07-07] MEDS: ProAmatine 10 MG PO ×3 (08:52→18:22)
[2024-07-07] MEDS: COLACE 100 MG PO (08:52)
[2024-07-07 10:21] LABS: ALT (SGPT) < 10 U/L (0-50); AST (SGOT) 15 U/L (17-59); Albumin 2.4 g/dl (3.5-5.0); Alkaline Phosphatase 60 U/L (38-126); Blood Urea Nitrogen 24 mg/dl (9-20); Calcium 8.9 mg/dl (8.4-10.2); Carbon Dioxide 28 mmol/L (22-30); Chloride 98 mmol/L (98-107); Estimated Creatinine Clearance 51 ml/min; Glucose 106 mg/dl (70-99); Magnesium 1.9 mg/dl (1.6-2.3); Potassium 4.7 mmol/L (3.5-5.1); Sodium 135 mmol/L (135-145); Total Bilirubin 0.2 mg/dl (0.2-1.3); Total Protein 5.8 g/dl (6.3-8.2); eGFR > 60.00
--- NOTE | 2024-07-07 10:52 | W.PN.URO.CBU ---
Today's Communication / Plan
-
AWAIT MRI [facility] NO ABCESS
Assessment / Plan
-
no clinical evidence prostate abscess more likely immuno suppressed pt with diabetes Will await mri to see if abcess if so will need to come off anticoagulants and discuss needle or surgical unroofing. If no abscess there is no procedure
that is safe to reduce prostatic stone s and have any benefit of prostatitis prevention
Diagnosis
-
Date of Service: July 07, 2024
-
Patient Diagnosis:
Post Op Day:
Patient Diagnosis:recurrent uti possibl;r prostatitis but pt with bph partil rention diabetic and on keytruda for metastaixc sq cell lung ca hAD prostae u/s shwing non diagnotic 1 cm mass possible abces
Post Op Day:
Subjective
-
AFEBRILE NO SDYSURIA FREQUNCY MILD CHILL
Objective
-
Vital Signs
Temp Pulse Resp BP Pulse Ox
98.3 F 62 18 96/50 92
07/07/24 07:35 07/07/24 08:52 07/07/24 07:35 07/07/24 08:52 07/07/24 07:35
Intake and Output
07/06/24 07/07/24 07/08/24
06:59 06:59 06:59
Intake Total 930 / 930 900 / 900
Output Total 1500 / 1500 600 / 600
Balance -570 / -570 300 / 300
Intake:
Oral fluids 930 / 930 900 / 900
Output:
Urine, Voided 1500 / 1500 600 / 600
Other:
How many times incontinent 2
SMALL amount urine
Laboratory Results
07/07/24 08:18
07/07/24 08:18
Review of Systems
-
Constitutional: Chills
: No Symptoms
Physical Exam
-
General - well developed, well nourished, no acute distress
Chest - clear bilaterally
Abdomen - soft, non-tender, positive bowel sounds, no CVAT, no incisional pain or distention
Genitalia - normal
Rectal - normal
Skin - warm & dry with no rash
Neuro - AOx3, no motor deficits
Extremities - no clubbing, no cyanosis, no edema
Incision - clean, dry
Dressing - clean, dry, intact
Care Review
Data Reviewed
Discussed with: Hospitalist and Nursing
Ultrasound: Image Pers Reviewed
[2024-07-07 11:26] VITALS: BP 96/48
[2024-07-07 12:01] LABS: Glucose - Point of Care 186 mg/dl (70-99)
[2024-07-07] MEDS: NOVOLOG FLEXPEN-LOW RESISTANCE 1 UNITS SC (12:21)
--- NOTE | 2024-07-07 14:08 | W.PN.HOSP.TC ---
Today's Communication/Plan
-
orthostasis better but...
florinef increased
follow orthostatic vital signs
pelvic MRI pending
.
Assessment / Plan
Assessment / Plan
pt is an 83 year old male
generalized weakness/fall-- very orthostatic despite TID midodrine, florinef added 07/05 cards increasing to 0.2, flomax and Ranexa stopped (both can cause hypotension)-- cosyntropin STIM test does NOT show adrenal insufficiency--cont midodrine TID,
abdominal binder, PT/OT---apprec cards
acute hypoxemic respiratory failure-- most likely from progression of lung cancer--CXR with diffuse interstitial opacities, CT scan chest with evidence for interval increase of extension of the mass into the left side of the mediastinum--wean O2 if
able--if not, will need assessment for home O2--apprec cards
E. coli Urinary tract infection--has had in past--apprec ID, believe due to prostatitis --ceftriaxone discontinued--changed to doxycycline--prostate US noted, apprec urology--pelvic MRI pending
anemia of chronic disease most likely--no evidence for bleeding--stable HGB of 8.6
increased peripheral eosinophilia--likely due to malignancy or Ketruda (although predates starting Keytruda per ID)
CKD stage 3b--creatinine appears at baseline
Type 2 DM--sliding scale--lantus 10u at hs
Lung cancer of left lobe, squamous cell carcinoma--Primary oncologist is Dr. Shin--s/p SBRT, completed carbo/taxol 04/17/2024--was on Keytruda--spoke with Dr. Shin, needs PET at [facility] where his other scans are...unclear now if prostate cancer
also present given prostate US report.....
Chronic diastolic congestive heart failure--hold torsemide--Ranexa continued
Paroxysmal AFib/CAD s/p CABG KINCAID-LAD 04/2015. PCI LM and LCX 06/2015--09/2022 post cath with patent KINCAID to LAD and stent and no new obstructive CAD--History of VT/VF cardiac arrest 04/2015 underwent urgent CABG as above--Continue Eliquis 2.5 mg twice
daily, Plavix 75 mg daily--apprec cards
BPH--Flomax, finasteride continued--can be associated with hypotension-- stop flomax....apprec urology
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
Hypercholesterolemia--Continue Crestor
DVT PPx: Eliquis
Code Status: Full code
Anticipated Discharge: > 48 hours
Subjective/Interval History
-
Date of Service: July 07, 2024
pt without c/o
Objective Data
-
Labs:
Laboratory Results
07/07/24
08:18
WBC 8.9
Hgb 9.8 L
Hct 30.2 L
Plt Count 268
Sodium 135
Potassium 4.7
Chloride 98
Carbon Dioxide 28
BUN 24 H
Creatinine 1.2
Glucose 106 H
Calcium 8.9
Total Bilirubin 0.2
AST 15 L
ALT < 10
Alkaline Phosphatase 60
Vital Signs:
max temp for 24 hours
07/07/24
03:59
Temp 98.5 F
Vital Signs
Temp Pulse Resp BP Pulse Ox
98.0 F 70 18 96/52 92
07/07/24 11:26 07/07/24 12:20 07/07/24 11:26 07/07/24 12:20 07/07/24 11:26
I&O
07/06/24 07/07/24 07/08/24
06:59 06:59 06:59
Intake Total 930 / 930 900 / 900
Output Total 1500 / 1500 600 / 600
Balance -570 / -570 300 / 300
Review of Systems
-
All other systems: Reviewed and negative
Physical Exam
-
General: Appears Chronically Ill
HEENT: Normocephalic and Atraumatic
Respiratory: Clear to Auscultation; Negative Wheezes or Rhonchi
Cardiac: Regular Rhythm and S1/S2; Negative Murmur
GI: Soft, Nontender, Nondistended and Normal Bowel Sounds
Musculoskeletal: No Clubbing, No Cyanosis and No Edema
Skin: Warm
Neuro: Awake
Psych: Calm
[2024-07-07 15:15] VITALS: BP 144/92
--- NOTE | 2024-07-07 16:25 | W.PN.ID1 ---
Date of Service
Date of Service: July 07, 2024
Today's Communication
Continue doxycycline.
Await MRI
Assessment / Plan
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
Prostate US possible abscess vs adenocarcinoma vs stone
Urology recommend pelvis MRI
continue doxycycline plan 6 week course
Chief Complaint
-: Other (chest pain, and hypoxia)
Subjective / Review of Systems
No urinary sxs at this time.
Vital Signs / Physical Exam
Vital Signs
Vital Signs
Temp Pulse Resp BP Pulse Ox
98.1 F 80 20 144/92 100
07/07/24 15:15 07/07/24 15:15 07/07/24 15:15 07/07/24 15:15 07/07/24 15:15
Physical Exam
Constitutional: No Acute Distress and Comfortable
Gastrointestinal: Soft, Non Tender and Non Distended
Genito-Urinary: Negative CVA Tenderness
Neurological: AO x 3
Objective Data
Lab Data
Lab Results
07/07/24 08:18
07/07/24 08:18
Estimated Creat Clear 51 ml/min 07/07/24 08:18
Total Bilirubin 0.2 mg/dl (0.2-1.3) 07/07/24 08:18
AST 15 U/L (17-59) L 07/07/24 08:18
ALT < 10 U/L (0-50) 07/07/24 08:18
Alkaline Phosphatase 60 U/L (38-126) 07/07/24 08:18
Most recent labs reviewed.
Micro Results:
07/02/24 13:56 Urine Culture - Final
Urine Escherichia coli
07/02/24 22:19 MRSA Screen - Final
Nose No Methicillin Resistant Staphylococcus aureus isolated.
[2024-07-07 16:45] LABS: Glucose - Point of Care 86 mg/dl (70-99)
[2024-07-07 20:25] VITALS: BP 113/60
[2024-07-07 21:34] LABS: Glucose - Point of Care 115 mg/dl (70-99)
[2024-07-07] MEDS: LANTUS 0.1 UNITS SC (21:47)
[2024-07-07 23:13] VITALS: BP 114/56
[2024-07-08 03:09] VITALS: BP 131/58
[2024-07-08] MEDS: ULTRAM 25 MG PO (05:11)
--- NOTE | 2024-07-08 05:11 | PTCARENOTE ---
Pt vomited small amount of brown emesis, reports feeling cold and with R sided hip pain. Pt temp 98.0 and other VSS. RN notified TESTING PROJECTS ADMINISTRATOR- ordered Benadryl 25mg IV and Ultram 25mg PO. Pt is resting comfortably with call alcaraz within reach.
[2024-07-08] MEDS: BENADRYL 25 MG IV (05:35)
[2024-07-08 06:00] VITALS: BMI 25.3
[2024-07-08 06:57] LABS: Glucose - Point of Care 115 mg/dl (70-99)
[2024-07-08 07:12] VITALS: BP 121/59
[2024-07-08] MEDS: NOVOLOG FLEXPEN-LOW RESISTANCE SC ×2 (08:42→16:42)
[2024-07-08] MEDS: ELIQUIS 2.5 MG PO ×2 (08:47→19:57)
[2024-07-08] MEDS: ProAmatine 10 MG PO ×3 (08:47→16:01)
[2024-07-08] MEDS: PLAVIX 75 MG PO (08:47)
[2024-07-08] MEDS: CRESTOR 5 MG PO (08:47)
[2024-07-08] MEDS: VIBRAMYCIN 100 MG PO ×2 (08:47→19:57)
[2024-07-08] MEDS: TYLENOL 650 MG PO ×3 (08:47→21:00)
[2024-07-08] MEDS: PROSCAR 5 MG PO (08:48)
[2024-07-08] MEDS: VISBIOME 1 CAP PO (08:48)
[2024-07-08] MEDS: FLORINEF 0.2 MG PO (08:48)
[2024-07-08] MEDS: COLACE 100 MG PO (08:48)
[2024-07-08] MEDS: FLORASTOR 250 MG PO ×2 (08:48→19:57)
[2024-07-08] MEDS: DESENEX/MITRAZOL/ZEASORB 1 APPLIC TOPICAL ×2 (08:48→19:58)
--- NOTE | 2024-07-08 10:29 | W.PN.URO.CBU ---
Today's Communication / Plan
-
AWAIT MRI FOR ABXCESS BUR THOSPITA;IST FOR DIZZINESS ETC
Assessment / Plan
-
no clinical evidence prostate abscess more likely immuno suppressed pt with diabetes Will await mri to see if abcess if so will need to come off anticoagulants and discuss needle or surgical unroofing. If no abscess there is no procedure
that is safe to reduce prostatic stone s and have any benefit of prostatitis prevention
Diagnosis
-
Date of Service: July 08, 2024
-
Patient Diagnosis:
Post Op Day:
Patient Diagnosis:
Post Op Day:
Patient Diagnosis:recurrent uti possibl;r prostatitis but pt with bph partil rention diabetic and on keytruda for metastaixc sq cell lung ca hAD prostae u/s shwing non diagnotic 1 cm mass possible abces
Post Op Day:
Subjective
-
STILL DIZZY BUT NO CU COMPLAINTS
Objective
-
Vital Signs
Temp Pulse Resp BP Pulse Ox
97.5 F 85 20 121/59 94
07/08/24 07:12 07/08/24 07:12 07/08/24 07:12 07/08/24 08:47 07/08/24 08:00
Intake and Output
07/07/24 07/08/24 07/09/24
06:59 06:59 06:59
Intake Total 900 / 900 1200 / 1200
Output Total 600 / 600 500 / 500
Balance 300 / 300 700 / 700
Intake:
Oral fluids 900 / 900 1200 / 1200
Output:
Urine, Voided 600 / 600 500 / 500
Other:
How many times incontinent 2
SMALL amount urine
How many times incontinent 2
MODERATE amount urine
Laboratory Results
07/07/24 08:18
07/07/24 08:18
Review of Systems
-
Constitutional: Fatigue
: No Symptoms
Physical Exam
-
General - well developed, well nourished, no acute distress
Chest - clear bilaterally
Abdomen - soft, non-tender, positive bowel sounds, no CVAT, no incisional pain or distention
Genitalia - normal
Rectal - normal
Skin - warm & dry with no rash
Neuro - AOx3, no motor deficits
Extremities - no clubbing, no cyanosis, no edema
Incision - clean, dry
Dressing - clean, dry, intact
Care Review
Data Reviewed
Discussed with: Hospitalist
[2024-07-08 11:16] VITALS: BP 74/43; BP 83/45; PULSE 83; PULSE 89
[2024-07-08 11:48] LABS: Glucose - Point of Care 240 mg/dl (70-99)
[2024-07-08] MEDS: NOVOLOG FLEXPEN-LOW RESISTANCE 2 UNITS SC (12:10)
[2024-07-08 15:37] VITALS: BP 122/58
--- NOTE | 2024-07-08 15:47 | W.PN.HOSP.TC ---
Today's Communication/Plan
-
cont current management
await pelvic MRI
Assessment / Plan
Assessment / Plan
pt is an 83 year old male
generalized weakness/fall-- very orthostatic despite TID midodrine, florinef added 07/05, cards increasing to 0.2, flomax and Ranexa stopped (both can cause hypotension)-- cosyntropin STIM test does NOT show adrenal insufficiency--cont midodrine
TID, abdominal binder, PT/OT---apprec cards
acute hypoxemic respiratory failure-- most likely from progression of lung cancer--CXR with diffuse interstitial opacities, CT scan chest with evidence for interval increase of extension of the mass into the left side of the mediastinum--wean O2 if
able--if not, will need assessment for home O2
E. coli Urinary tract infection--has had in past--apprec ID, believe due to prostatitis --ceftriaxone discontinued--changed to doxycycline--prostate US noted, apprec urology--pelvic MRI pending
anemia of chronic disease most likely--no evidence for bleeding--stable HGB
increased peripheral eosinophilia--likely due to malignancy or Ketruda (although predates starting Keytruda per ID)
CKD stage 3b--creatinine appears at baseline
Type 2 DM--sliding scale--lantus 10u at hs
Lung cancer of left lobe, squamous cell carcinoma--Primary oncologist is Dr. Shin--s/p SBRT, completed carbo/taxol 04/17/2024--was on Keytruda--spoke with Dr. Shin, needs PET at [facility] where his other scans are...unclear now if prostate cancer
also present given prostate US report.....
Chronic diastolic congestive heart failure--hold torsemide--Ranexa continued
Paroxysmal AFib/CAD s/p CABG KINCAID-LAD 04/2015. PCI LM and LCX 06/2015--09/2022 post cath with patent KINCAID to LAD and stent and no new obstructive CAD--History of VT/VF cardiac arrest 04/2015 underwent urgent CABG as above--Continue Eliquis 2.5 mg twice
daily, Plavix 75 mg daily--apprec cards
BPH--Flomax, finasteride continued--can be associated with hypotension-- stop flomax....apprec urology
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
Hypercholesterolemia--Continue Crestor
DVT PPx: Eliquis
Code Status: Full code
if pt significantly orthostatic and lung cancer progressed with possible prostate abnormality--consider GOC discussion
Anticipated Discharge: > 48 hours
Subjective/Interval History
-
Date of Service: July 08, 2024
pt still hasn't gotten MRI of pelvis...still orthostatic
Objective Data
-
Vital Signs:
max temp for 24 hours
07/07/24
23:13
Temp 98.3 F
Vital Signs
Temp Pulse Resp BP Pulse Ox
97.5 F 73 20 122/58 92
07/08/24 15:37 07/08/24 15:37 07/08/24 15:37 07/08/24 15:37 07/08/24 15:37
I&O
07/07/24 07/08/24 07/09/24
06:59 06:59 06:59
Intake Total 900 / 900 1200 / 1200
Output Total 600 / 600 500 / 500
Balance 300 / 300 700 / 700
Review of Systems
-
All other systems: Reviewed and negative
Physical Exam
-
General: Well Developed, Well Nourished and No Apparent Distress
HEENT: Normocephalic and Atraumatic
Respiratory: Clear to Auscultation; Negative Wheezes or Rhonchi
Cardiac: Regular Rhythm and S1/S2; Negative Murmur
GI: Soft, Nontender, Nondistended and Normal Bowel Sounds
Musculoskeletal: No Clubbing, No Cyanosis and No Edema
Neuro: Awake
Psych: Calm
[2024-07-08 16:37] LABS: Glucose - Point of Care 140 mg/dl (70-99)
[2024-07-08] MEDS: LANTUS 0.1 UNITS SC (21:21)
[2024-07-08 21:27] LABS: Glucose - Point of Care 154 mg/dl (70-99)
[2024-07-08 23:55] VITALS: BP 119/62
--- NOTE | 2024-07-09 | PTCARENOTE ---
At 20:45, pt complained of the chills with joint pain throughout his body and felt fatigue. Pt appeared to be flushed. RN took a rectal temp of 100.3 and given Tylenol 650mg PO. At 23:55, RN reached temp of 98.4 orally. Pt is resting comfortably w/
call alcaraz within reach.
[2024-07-09 06:00] VITALS: BMI 25.2
[2024-07-09 08:12] LABS: Glucose - Point of Care 105 mg/dl (70-99)
[2024-07-09 08:15] VITALS: BP 150/67
[2024-07-09 08:17] LABS: Hematocrit 30.5 % (39.0-52.0); Mean Corp Hgb Conc. 32.8 g/dL (33.0-37.0); Mean Corpuscular Volume 88.4 fL (80.0-94.0); Mean Platelet Volume 8.6 fL (7.4-10.4); Platelet Count 311 10^3/uL (130-400); Red Blood Cell Count 3.45 10^6/uL (4.70-6.10); Red Cell Dist. Width 14.8 % (11.5-14.5); White Blood Cell Count 12.6 10^3/uL (4.8-10.8)
--- NOTE | 2024-07-09 08:32 | W.PN.HOSP.TC ---
Today's Communication/Plan
-
see A/P
Assessment / Plan
Assessment / Plan
A/P:
# generalized weakness/fall
very orthostatic despite TID midodrine, florinef added 07/05 by card and increased to 0.2 mg daily
flomax and Ranexa stopped (both can cause hypotension)
cosyntropin STIM test without adrenal insufficiency
cont abdominal binder
PT/OT recc SNF
# acute hypoxemic respiratory failure likely from progression of lung cancer
Cont 4L NC, wean as tolerated, if not, would need assessment for home O2
CXR with diffuse interstitial opacities,
CT chest with interval increase of extension of the mass into the left side of the mediastinum
# E. coli Urinary tract infection, likely due to prostatitis
ceftriaxone discontinued, changed to doxycycline with plan to continue 6 weeks
prostate US noted
ID on board
# ? prostate cancer
prostate US noted 1.4 cm focal hypoechoic lesion in the right mid peripheral zone of the prostate gland. Diagnostic possibilities are (1) an abscess given the history of prostatitis, (2) a complex cyst, or (3) adenocarcinoma.
Check pelvic MRI pending
Uro on board
# anemia of chronic disease
no evidence for bleeding
stable HGB
# increased peripheral eosinophilia, likely due to malignancy or Keytruda (although predates starting Keytruda per ID)
# CKD stage 3b
SCr today at 1.4, at baseline
# Type 2 DM
cover with sliding scale
Cont Lantus 10u HS
# Lung cancer of left lobe, squamous cell carcinoma
Primary oncologist is Dr. Shni
s/p SBRT, completed carbo/taxol 04/17/2024, was on Keytruda
spoke with Dr. Shin, needs PET at [facility] where his other scans are
# Chronic diastolic congestive heart failure
hold torsemide
Off Ranexa due to orthostatic hypotension
# Paroxysmal AFib
# CAD s/p CABG KINCAID-LAD 04/2015. PCI LM and LCX 06/2015; 09/2022 post cath with patent KINCAID to LAD and stent and no new obstructive CAD
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
Continue Eliquis 2.5 mg twice daily, Plavix 75 mg daily
apprec cards
# BPH
Off Flomax due to orthostatic hypotension
cont finasteride
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
# Hypercholesterolemia
Continue Crestor
DVT PPx: Eliquis 2.5 mg BID
Code Status: Full code
if pt significantly orthostatic and lung cancer progressed with possible prostate abnormality--consider GOC discussion
DW RN
total time spent 51 min
Anticipated Discharge: > 48 hours
Subjective/Interval History
-
Date of Service: July 09, 2024
Objective Data
-
Labs:
Laboratory Results
07/09/24
08:08
WBC 12.6 H
Hgb 10.0 L
Hct 30.5 L
Plt Count 311
Sodium Pending
Potassium Pending
Chloride Pending
Carbon Dioxide Pending
BUN Pending
Creatinine Pending
Glucose Pending
Calcium Pending
Vital Signs:
Vital Signs
Temp Pulse Resp BP Pulse Ox
36.6 C 79 20 150/67 94
07/09/24 08:15 07/09/24 08:15 07/09/24 08:15 07/09/24 08:15 07/09/24 08:15
I&O
07/08/24 07/09/24 07/10/24
06:59 06:59 06:59
Intake Total 1200 / 1200 480 / 480
Output Total 500 / 500
Balance 700 / 700 480 / 480
Review of Systems
-
All other systems: Reviewed and negative
Physical Exam
-
General: Well Developed, Well Nourished and Appears Chronically Ill
HEENT: Normocephalic, Atraumatic and Oxygen (4L NC)
Respiratory: Clear to Auscultation and Non Labored Respirations; Negative Accessory Resp Muscle Use
Cardiac: Regular Rhythm and S1/S2; Negative Murmur
GI: Soft, Nontender, Nondistended and Normal Bowel Sounds
Musculoskeletal: No Clubbing, No Cyanosis and No Edema
Neuro: Awake
Psych: Calm and Intact Judgement/Insight
Data Reviewed
-
Labs: Labs Reviewed by me
[2024-07-09] MEDS: NOVOLOG FLEXPEN-LOW RESISTANCE SC ×2 (08:39→17:31)
[2024-07-09 08:40] LABS: Blood Urea Nitrogen 32 mg/dl (9-20); Calcium 9.4 mg/dl (8.4-10.2); Carbon Dioxide 28 mmol/L (22-30); Chloride 97 mmol/L (98-107); Estimated Creatinine Clearance 44 ml/min; Glucose 112 mg/dl (70-99); Potassium 4.6 mmol/L (3.5-5.1); Sodium 133 mmol/L (135-145); eGFR 50.18
[2024-07-09] MEDS: CRESTOR 5 MG PO (08:44)
[2024-07-09] MEDS: FLORINEF 0.2 MG PO (08:44)
[2024-07-09] MEDS: VIBRAMYCIN 100 MG PO ×2 (08:44→21:17)
[2024-07-09] MEDS: ProAmatine 10 MG PO ×3 (08:44→16:07)
[2024-07-09] MEDS: TYLENOL 650 MG PO ×3 (08:44→21:17)
[2024-07-09] MEDS: PROSCAR 5 MG PO (08:45)
[2024-07-09] MEDS: VISBIOME 1 CAP PO (08:45)
[2024-07-09] MEDS: ELIQUIS 2.5 MG PO ×2 (08:45→21:17)
[2024-07-09] MEDS: FLORASTOR 250 MG PO ×2 (08:45→21:17)
[2024-07-09] MEDS: PLAVIX 75 MG PO (08:45)
[2024-07-09] MEDS: COLACE 100 MG PO (08:45)
[2024-07-09] MEDS: DESENEX/MITRAZOL/ZEASORB 1 APPLIC TOPICAL ×2 (08:46→21:18)
[2024-07-09 12:13] LABS: Glucose - Point of Care 184 mg/dl (70-99)
[2024-07-09] MEDS: NOVOLOG FLEXPEN-LOW RESISTANCE 1 UNITS SC (12:15)
--- NOTE | 2024-07-09 12:20 | W.PN.ID1 ---
Date of Service
Date of Service: July 09, 2024
Today's Communication
covid and flu antigens
consider swallow eval
cxr
ceftriaxone
Assessment / Plan
Leukocytosis, borderline fever
- covid ag, influenza pcr
- CXR
- cbc with diff in the AM - check for relapse of eosinophilia
- procalcitonin not useful with KATHARINE
- consider swallow evaluation seems to have last been done 2014
- add empiric ceftriaxone for now
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
Prostate US possible abscess vs adenocarcinoma vs stone
Urology recommend pelvis MRI
continue doxycycline plan 6 week course
Chief Complaint
-: Other (prostatitis)
Subjective / Review of Systems
borderline fever overnight
bp stable
chills and fatigue overnight - no bay fevers
Vital Signs / Physical Exam
Vital Signs
Vital Signs
Temp Pulse Resp BP Pulse Ox
98 F 77 20 104/50 94
07/09/24 08:15 07/09/24 12:06 07/09/24 08:15 07/09/24 12:06 07/09/24 08:15
Physical Exam
Constitutional: No Acute Distress and Chronically Ill
Cardiovascular: Regular Rate
Pulmonary: Symmetric and Non Labored
Gastrointestinal: Soft and Non Tender
Skin: Dry; Negative Rash or Jaundice
Neurological: Negative Awake
Objective Data
Lab Data
Lab Results
07/09/24 08:08
07/09/24 08:08
Estimated Creat Clear 44 ml/min 07/09/24 08:08
Total Bilirubin 0.2 mg/dl (0.2-1.3) 07/07/24 08:18
AST 15 U/L (17-59) L 07/07/24 08:18
ALT < 10 U/L (0-50) 07/07/24 08:18
Alkaline Phosphatase 60 U/L (38-126) 07/07/24 08:18
Most recent labs reviewed.
Micro Results:
07/02/24 13:56 Urine Culture - Final
Urine Escherichia coli
07/02/24 22:19 MRSA Screen - Final
Nose No Methicillin Resistant Staphylococcus aureus isolated.
--- NOTE | 2024-07-09 12:24 | W.PN.CARDCBS ---
Addendum entered and electronically signed by Corey Lennon MD 07/09/24 20:27:
Patient feels comfortable with lying supine, still with lightheadedness sitting up, MRI of prostate pending. Patient denies much dyspnea, denies cough
PMH/PSH/SH/FH: Reviewed
Allergies amiodarone, ZACHARY inhibitors, contrast, sulfa
Current medications: Apixaban 2.5 twice daily, clopidogrel 75 mg daily, Colace, Proscar, midodrine 10 3 times daily, ranolazine 500 twice daily, on hold, rosuvastatin, insulin, doxycycline, fludrocortisone 0.2 mg a day, ceftriaxone
142/65 supine, 81 systolic sitting, pulse 72, respiratory 20
Chest x-ray: Suspicious for pneumonia, presumed left upper lobe mass,, reticulonodular densities increased
White count 12.6, sodium 133, potassium 4.6, BUN and creatinine 32 and 1.4
Impression:
Most active cardiac problem: persistent orthostasis -related to chemotherapy? Paraneoplastic syndrome?
Other cardiac problems significant problems: CAD, anemia circumflex in 2014, CABG x 1, AAA, bilateral CEA 2019, PAD
Non-small cell lung cancer status post radiation, currently on chemotherapy
Hypertension, hyperlipidemia, sleep apnea right bundle branch block, CKD, diabetes
Plan:
He remains severely orthostatic, and options currently are limited. I am not certain that we will be able to get him ambulatory in the near term.
His chest x-ray is dramatically abnormal. He is surprisingly asymptomatic. Currently being treated with doxycycline and ceftriaxone for possible pneumonia.
MRI of the prostate apparently still pending.
X-ray findings probably not reflective of CHF, but concern. Will check proBNP in AM. He had been on furosemide as needed prior to admission, though weight is actually down compared to admission.
Prognosis guarded
Original Note:
Today's Communication / Plan
-
MRI prostate
Cont efforts with midodrine and Florinef
Impression / Plan
-
PCP: Dr. Villa
Medical Librarian: Dr. Blackburn
Impression:
Presented 07/02/2024 w/ weakness/fatigue/fall
Acute hypoxemic respiratory failure
UTI
chest pain
Acute HFpEF
Elevated Troponin
Orthostatic hypotension
Paroxysmal atrial fibrillation
hypereosinophilia
abnormal CXR 05/25/24
Chronic Eliquis anticoagulation, off Amio due to eosinophilia
CAD
urgent CABGx1 KINCAID-LAD (VF/VT arrest) 04/2015
PCI LM and LCx 06/2015
s/p cath with patent KINCAID-LAD and stents, non new occlusive disease 10/22/22
currently managed with Plavix, Eliquis, Crestor, Ranexa (Ranexa stopped this admission due to hypotension)
Non-small cell lung cancer s/p radiation 11/2022 currently on Carbo/Taxol, Pembrolizumab
h/o VT/VF arrest in 2014 in the setting of left main stenosis
COPD/Emphysema
PVD - fem bypass and VENEER STOCK LAYER LCF 2016
CEA B/L 2018
AAA 3.2cm
CKD 3a
HTN
HLD
KIM
RBBB
DM2
Former smoker
Echo 10/22/2022�EF 65 to 70%.� Mild MR.� Aortic valve gradients 20/8 mmHg peak/mean consistent with mild aortic valve stenosis.� Trace TR with PA pressure 30 to 35 mmHg
Echo 11/28/2023: EF 50-55%, akinesis of the basal inferior wall, mild w/ peak/mean gradients 19/10 mmHg
Cardiac cath: 10/22/2022: stable CAD with prior left main to left circumflex stent patent, chronic total occlusion RCA, patent KINCAID to LAD, elevated LVEDP.
Plan:
-Patient continues with symptomatic hypotension. Supine BP 107/57 and sitting BP 81/50 on 07/09/24.
-Orthostasis has essentially been unresponsive to midodrine 10 mg TID and Florinef 0.2 mg daily
-Flomax and Ranexa stopped this admission without obvious improvement in orthostasis
-Cosyntropin stim test did not show adrenal insufficiency
-MRI scheduled for 07/07/24 to evaluate for possible prostate abscess. If patient has prostate abscess then he will need surgery and abscess/infection might help to explain ongoing hypotension
-Remains in SR with h/o paroxysmal Afib. It would not be unexpected for AF to eventually recur at which point rhythm control versus rate control options can be further explored.
-Outpatient dose of Eliquis 2.5 mg BID (age 83, wt 81 kg, Cre 1.3, but usually greater than 1.5) has been continued. If patient needs surgery then Eliquis can be held and restarted when safe from a surgical standpoint.
-Amiodarone previously stopped due to eosinophilia
-Troponin 0.038 on admission and will be managed as a nonischemic myocardial injury Troponin elevation
-Patient was taking torsemide 10 mg daily PRN weight gain prior to admission. Recorded bed scale weight is up 6 lbs overnight, but no increased edema, SOB or hypoxia. Cont to follow.
-EF 50-55% by echo 11/28/23
-Cannot take BB due to orthostasis
-Has had angioedema on ZCAHARY inhibitors in the past.
Progress Note - Medical Librarian
Subjective
Date of Service: July 09, 2024
He is lightheaded with sitting up in bed
Objective
Labs:
07/09/24 08:08
07/09/24 08:08
Labs
Hgb 10.0 g/dL (13.0-18.0) L 07/09/24 08:08
Hct 30.5 % (39.0-52.0) L 07/09/24 08:08
Plt Count 311 10^3/uL (130-400) 07/09/24 08:08
Sodium 133 mmol/L (135-145) L 07/09/24 08:08
Potassium 4.6 mmol/L (3.5-5.1) 07/09/24 08:08
BUN 32 mg/dl (9-20) H 07/09/24 08:08
Creatinine 1.4 mg/dL (0.7-1.3) H 07/09/24 08:08
Glucose 112 mg/dl (70-99) H 07/09/24 08:08
Vital Signs and I&O:
Vital Signs
Temp Pulse Resp BP Pulse Ox
98 F 77 20 104/50 94
07/09/24 08:15 07/09/24 12:06 07/09/24 08:15 07/09/24 12:06 07/09/24 08:15
Vital Signs
Temp Pulse Resp BP Pulse Ox
98 F 77 20 104/50 94
07/09/24 08:15 07/09/24 12:06 07/09/24 08:15 07/09/24 12:06 07/09/24 08:15
Intake & Output
07/07/24 07/08/24 07/09/24 07/10/24
06:59 06:59 06:59 06:59
Intake Total 900 / 900 1200 / 1200 480 / 480
Output Total 600 / 600 500 / 500
Balance 300 / 300 700 / 700 480 / 480
Physical Exam
Physical Exam
GEN: AAOx3
HEENT: mmm
LUNGS: No audible wheeze
CV: SR on tele
ABD: ND
EXT: No edema
NEURO: Gross non-focal
SKIN: No rash
[2024-07-09 12:25] VITALS: BP 107/57; BP 81/51; PULSE 76; O2SAT 91
[2024-07-09 12:41] VITALS: BP 107/57; BP 81/50; PULSE 75; O2SAT 91
--- NOTE | 2024-07-09 12:47 | WOUNDNOTE ---
R MEDIAL GREAT TOE
--- NOTE | 2024-07-09 12:47 | WOUNDNOTE ---
L GREAT TOE DORSAL
--- NOTE | 2024-07-09 12:50 | WOUNDNOTE ---
WON RN note: Patient admitted with Acute UTI.
See H&P for complete history. Lives with .
PMH: Diabetic neuropathy, stroke, lung cancer-on Keytruda, CAD,CHF,HTN,OR,CABG 2015, Fem Pop bypass.
Wound Location and type/assessment: Patient known to service, admitted with: healing L knee blister/abrasion s/p fall patient states. L buttock old healing skin from shearing rather than true pressure. R buttock stage 2 PI, patient turns self. R
great toe and L great toe with small dry red abrasion's, heels intact. L hip bruise. Patient states he has gone to [facility] Dr. Mason in [place] for feet, but unable to follow up due to admissions to hospital.
Appetite: Fair.
Pressure redistribution devices in place: On Air overlay, turning schedule. Air chair cushion pillow under calves.
Plan: Changed silicone foams on buttocks ulcers. Heel foams applied to protect and pillow placed under calves. Small silicone foam to R great toe and band aid to L great toe. L knee open to air. Palm check done with adequate inflation.
Will confirm orders with hospitalist and updated nurse Karol. Updated care plan and will follow as needed.
Note to case management of equipment requested for discharge: None
Recommend follow up with [facility] or [facility].
[2024-07-09 13:38] LABS: COVID-19 Antigen Negative (Negative)
[2024-07-09] MEDS: STERILE WATER FOR INJECTION 20 ML IV (14:24)
[2024-07-09] MEDS: ROCEPHIN 2000 MG IV (14:24)
[2024-07-09] MEDS: FLUSH (NSS) 1 FLUSH IV (14:30)
[2024-07-09 15:53] VITALS: BP 142/65
--- NOTE | 2024-07-09 16:56 | W.PN.URO.CBU ---
Today's Communication / Plan
-
per hospitalist but no clinical eveidece uti
Assessment / Plan
-
no clinical evidence prostate abscess more likely immuno suppressed pt with diabetes Will await mri to see if abcess if so will need to come off anticoagulants and discuss needle or surgical unroofing. If no abscess there is no procedure
that is safe to reduce prostatic stone s and have any benefit of prostatitis prevention
Diagnosis
-
Date of Service: July 09, 2024
-
Patient Diagnosis:
Post Op Day:
Patient Diagnosis:
Post Op Day:
Patient Diagnosis:
Post Op Day:
Patient Diagnosis:recurrent uti possibl;r prostatitis but pt with bph partil rention diabetic and on keytruda for metastaixc sq cell lung ca hAD prostae u/s shwing non diagnotic 1 cm mass possible abces
Post Op Day:
Subjective
-
sob light headed no gu problems
Objective
-
Vital Signs
Temp Pulse Resp BP Pulse Ox
98.4 F 72 20 142/65 94
07/09/24 15:53 07/09/24 16:07 07/09/24 15:53 07/09/24 16:07 07/09/24 15:53
Intake and Output
07/08/24 07/09/24 07/10/24
06:59 06:59 06:59
Intake Total 1200 / 1200 480 / 480
Output Total 500 / 500
Balance 700 / 700 480 / 480
Intake:
Oral fluids 1200 / 1200 480 / 480
Output:
Urine, Voided 500 / 500
Other:
Number of approximated SMALL 1
amounts of urine
How many times incontinent 2 1
MODERATE amount urine
How many times incontinent 1
SATURATED amount urine
Laboratory Results
07/09/24 08:08
07/09/24 08:08
Review of Systems
-
Respiratory: Trouble Breathing
: No Symptoms
Physical Exam
-
General - well developed, well nourished, no acute distress
Chest - clear bilaterally
Abdomen - soft, non-tender, positive bowel sounds, no CVAT, no incisional pain or distention
Genitalia - normal
Rectal - normal
Skin - warm & dry with no rash
Neuro - AOx3, no motor deficits
Extremities - no clubbing, no cyanosis, no edema
Incision - clean, dry
Dressing - clean, dry, intact
Care Review
Data Reviewed
Discussed with: Hospitalist and Nursing
[2024-07-09 17:10] LABS: Glucose - Point of Care 100 mg/dl (70-99)
[2024-07-09] MEDS: LANTUS 0.1 UNITS SC (22:51)
[2024-07-09 22:52] LABS: Glucose - Point of Care 127 mg/dl (70-99)
[2024-07-09 23:00] VITALS: BP 119/62
[2024-07-10 05:41] LABS: % Basophils 0.3 % (0-2); % Eosinophils 16.1 % (0-6); % Immature Granulocytes 0.9 % (0-0.5); % Lymphocytes 7.1 % (20.5-51.1); % Monocytes 9.8 % (1.7-9.3); % Neutrophils 65.8 % (42.2-75.2); Absolute Eosinophils 1.7 10^3/uL (0-0.7); Absolute Immature Granulocytes 0.1 10^3/uL (0-0.05); Absolute Lymphocytes 0.8 10^3/uL (1.2-3.4); Absolute Monocytes 1.1 10^3/uL (0.1-0.6); Absolute Neutrophils 7.1 10^3/uL (1.4-6.5); Hematocrit 29.7 % (39.0-52.0); Hemoglobin 9.7 g/dL (13.0-18.0); Mean Corp Hgb Conc. 32.7 g/dL (33.0-37.0); Mean Corpuscular Hgb 28.9 pg (27.0-31.0); Mean Corpuscular Volume 88.4 fL (80.0-94.0); Mean Platelet Volume 8.7 fL (7.4-10.4); Nucleated Red Blood Cells % 0 % (-); Platelet Count 325 10^3/uL (130-400); Red Blood Cell Count 3.36 10^6/uL (4.70-6.10); Red Cell Dist. Width 14.6 % (11.5-14.5); White Blood Cell Count 10.7 10^3/uL (4.8-10.8)
[2024-07-10 06:00] VITALS: BMI 23.3
[2024-07-10 06:27] LABS: Blood Urea Nitrogen 37 mg/dl (9-20); Carbon Dioxide 29 mmol/L (22-30); Chloride 96 mmol/L (98-107); Estimated Creatinine Clearance 44 ml/min; Glucose 106 mg/dl (70-99); Magnesium 1.9 mg/dl (1.6-2.3); Potassium 4.9 mmol/L (3.5-5.1); Sodium 133 mmol/L (135-145); eGFR 50.18
[2024-07-10 06:33] LABS: NT-proBNP 1320 pg/ml
[2024-07-10 07:10] VITALS: BP 130/58; BP 86/45; PULSE 77; PULSE 82
[2024-07-10 07:14] LABS: Glucose - Point of Care 95 mg/dl (70-99)
[2024-07-10] MEDS: NOVOLOG FLEXPEN-LOW RESISTANCE SC ×3 (08:00→17:05)
--- NOTE | 2024-07-10 09:30 | W.PN.HOSP.TC ---
Addendum entered and electronically signed by Danitza Santiago MD 07/10/24 14:11:
# healing L knee blister/abrasion
# L buttock old healing skin
# R buttock stage 2 PI
Original Note:
Today's Communication/Plan
-
see A/P
Assessment / Plan
Assessment / Plan
A/P:
# generalized weakness/fall
very orthostatic despite midodrine 10 mg TID, florinef added 07/05 by card and increased to 0.2 mg daily
flomax and Ranexa stopped (both can cause hypotension)
cosyntropin STIM test without adrenal insufficiency
cont abdominal binder
PT/OT recc SNF
# acute hypoxemic respiratory failure likely from progression of lung cancer
Cont 4L NC, wean as tolerated, pt not on home O2
CXR with diffuse interstitial opacities,
CT chest with interval increase of extension of the mass into the left side of the mediastinum
# E. coli Urinary tract infection, likely due to prostatitis
ceftriaxone discontinued, changed to doxycycline with plan to continue 6 weeks
prostate US noted
ID on board
# ? prostate cancer
prostate US noted 1.4 cm focal hypoechoic lesion in the right mid peripheral zone of the prostate gland. Diagnostic possibilities are (1) an abscess given the history of prostatitis, (2) a complex cyst, or (3) adenocarcinoma.
Follow pelvic MRI
Uro on board
# anemia of chronic disease
no evidence for bleeding
stable HGB
# increased peripheral eosinophilia, likely due to malignancy or Keytruda (although predates starting Keytruda per ID)
# CKD stage 3b
SCr today at 1.4, at baseline
# Type 2 DM
cover with sliding scale
Cont Lantus 10u HS
# Lung cancer of left lobe, squamous cell carcinoma
Primary oncologist is Dr. Shin
s/p SBRT, completed carbo/taxol 04/17/2024, was on Keytruda
spoke with Dr. Shin, needs PET at [facility] where his other scans are
# Chronic diastolic congestive heart failure
hold torsemide
Off Ranexa due to orthostatic hypotension
# Paroxysmal AFib
# CAD s/p CABG KINCAID-LAD 04/2015. PCI LM and LCX 06/2015; 09/2022 post cath with patent KINCAID to LAD and stent and no new obstructive CAD
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
Continue Eliquis 2.5 mg twice daily, Plavix 75 mg daily
apprec cards
# BPH
Off Flomax due to orthostatic hypotension
cont finasteride
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
# Hypercholesterolemia
Continue Crestor
DVT PPx: Eliquis 2.5 mg BID
Code Status: Full code
DW RN
Anticipated Discharge: 24 - 48 hours
Subjective/Interval History
-
Date of Service: July 10, 2024
Objective Data
-
Labs:
Laboratory Results
07/10/24
05:25
WBC 10.7
Hgb 9.7 L
Hct 29.7 L
Plt Count 325
Sodium 133 L
Potassium 4.9
Chloride 96 L
Carbon Dioxide 29
BUN 37 H
Creatinine 1.4 H
Glucose 106 H
Calcium 10.0
Vital Signs:
Vital Signs
Temp Pulse Resp BP Pulse Ox
36.5 C 77 20 130/58 96
07/10/24 07:10 07/10/24 07:10 07/10/24 07:10 07/10/24 07:10 07/10/24 07:10
I&O
07/09/24 07/10/24 07/11/24
06:59 06:59 06:59
Intake Total 480 / 480
Output Total 450 / 450
Balance 480 / 480 -450 / -450
Review of Systems
-
All other systems: Reviewed and negative
Physical Exam
-
General: Well Developed, Well Nourished and Appears Chronically Ill
HEENT: Normocephalic, Atraumatic and Oxygen (4L NC)
Respiratory: Clear to Auscultation and Non Labored Respirations; Negative Accessory Resp Muscle Use
Cardiac: Regular Rhythm and S1/S2; Negative Murmur
GI: Soft, Nontender, Nondistended and Normal Bowel Sounds
Musculoskeletal: No Clubbing, No Cyanosis and No Edema
Neuro: Awake
Psych: Calm and Intact Judgement/Insight
Data Reviewed
-
Labs: Labs Reviewed by me
[2024-07-10] MEDS: TYLENOL 650 MG PO ×3 (09:43→21:16)
[2024-07-10] MEDS: VIBRAMYCIN 100 MG PO ×2 (09:43→21:16)
[2024-07-10] MEDS: FLORASTOR 250 MG PO ×2 (09:43→21:16)
[2024-07-10] MEDS: ProAmatine 10 MG PO ×3 (09:43→18:17)
[2024-07-10] MEDS: CRESTOR 5 MG PO (09:43)
[2024-07-10] MEDS: PROSCAR 5 MG PO (09:44)
[2024-07-10] MEDS: COLACE 100 MG PO (09:44)
[2024-07-10] MEDS: FLORINEF 0.2 MG PO (09:44)
[2024-07-10] MEDS: VISBIOME 1 CAP PO (09:44)
[2024-07-10] MEDS: PLAVIX 75 MG PO (09:44)
[2024-07-10] MEDS: DESENEX/MITRAZOL/ZEASORB 1 APPLIC TOPICAL ×2 (09:45→21:17)
[2024-07-10] MEDS: ELIQUIS 2.5 MG PO (09:45)
--- NOTE | 2024-07-10 11:05 | W.PN.ID1 ---
Addendum entered and electronically signed by Danielle Anaya MD 07/10/24 17:26:
I saw and evaluated the patient. I reviewed the resident�s note and agree with findings and plan as documented in the resident�s note.
Suspected Aspiration Pneumonia
Leukocytosis, borderline fever
Relapsing Eosinophilia
- CXR - progression of L lung infiltrates on my read - coughing and choaking
- cbc with diff in the AM - check for relapse of eosinophilia
- consider swallow evaluation seems to have last been done 2014
- c/w empiric ceftriaxone for now
- follow eosinophilia - if persists/progresses may need to reconsider causes/steroids
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
- would plan for drainage of abscess if feasible, if not will treat medically for a very long course
- continue doxycycline currently plan 6 week course
AW
Original Note:
Date of Service
Date of Service: July 10, 2024
Today's Communication
Continue ceftriaxone.
Pending swallow evaluation.
Continue doxycycline.
Appreciate urology help.
Assessment / Plan
Assessment-
Mr. Alvarez, 83-year-old male with a past medical history complicated by recurrent UTIs, due to E. coli, squamous cell carcinoma of the lung, on Keytruda, recurrent hyper eosinophilia with recent completion of doxycycline course for 4 weeks for
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 coli, and bilateral hospital-acquired/aspiration pneumonia.
Subjective-cough, chest pain. No sputum production, no hemoptysis, no fevers, no rigors.
Objective-afebrile, vital signs stable, resolved leukocytosis from yesterday.
Plan-
Hospital-acquired/aspiration pneumonia-
Chest x-ray findings consistent with bilateral pneumonia.
Absolute eosinophil count-1.7. Elevated.
Swallow evaluation pending.
Patient is started on empirical ceftriaxone-day 2.
Recurrent prostatitis due to E. coli-
MRI of the pelvis evidence for prostrate abscess-1.8 x 1.3 x 1.1 cm.
Urology plans to wall of the abscess by TURP procedure. However patient need to await the Plavix washout.
Continue doxycycline 6-week course.
Chief Complaint
-: Other (prostatitis)
Subjective / Review of Systems
Rigors resolved, patient still complains of chest pain, dry cough. No sputum production.
Review of Systems: No Fever, No Chills, No Headache, No Pharyngitis, No Stiff Neck, Cough, No Sputum Production, Chest Pain, No Palpitations and No Nausea
Vital Signs / Physical Exam
Vital Signs
Vital Signs
Temp Pulse Resp BP Pulse Ox
97.7 F 77 20 130/58 96
07/10/24 07:10 07/10/24 07:10 07/10/24 07:10 07/10/24 07:10 07/10/24 07:10
Physical Exam
Constitutional: Comfortable
Cardiovascular: Regular Rate and S1/S2; Negative Murmur, Rub or Gallop
Pulmonary: Clear; Negative Wheezes, Rales or Rhonchi
Gastrointestinal: Soft, Non Tender, Non Distended and Normal Bowel Sounds
Extremities: Negative Edema
Skin: Warm
Neurological: Awake and Alert
Psychological: Calm
Objective Data
Lab Data
Lab Results
07/10/24 05:25
07/10/24 05:25
Estimated Creat Clear 44 ml/min 07/10/24 05:25
Total Bilirubin 0.2 mg/dl (0.2-1.3) 07/07/24 08:18
AST 15 U/L (17-59) L 07/07/24 08:18
ALT < 10 U/L (0-50) 07/07/24 08:18
Alkaline Phosphatase 60 U/L (38-126) 07/07/24 08:18
Most recent labs reviewed.
Micro Results:
07/09/24 15:26 Influenza Types A & B (MARY) - Final
Nasal Swab Negative for Influenza A & B, NAAT
Negative results must be combined with clinical observations
and patient history.
Nucleic Acid Amplification test (NAAT)performed on the
[employer] platform.
07/02/24 13:56 Urine Culture - Final
Urine Escherichia coli
07/02/24 22:19 MRSA Screen - Final
Nose No Methicillin Resistant Staphylococcus aureus isolated.
Pelvis MRI-07/10/2024 -
1.8 x 1.3 x 1.1 cm peripherally enhancing, T2 hyperintense focus within the posterior lateral right peripheral zone in the mid/apical aspect of the gland which is most likely likely an abscess. This appears to correlate with the abnormality seen on
recent ultrasound. Mild BPH changes.
There are numerous diverticuli along the posterior aspect of the urinary bladder which measure up to 2.4 cm. There is additional prominent trabeculations of the urinary bladder. Findings are likely sequelae of chronic outlet obstruction.
Chest x-ray-07/09/2024-
Interval increase in reticulonodular more confluent areas of parenchymal opacity within both lungs greater on the left compared to the right appearance is highly suggestive of bilateral pneumonia.
Prostate ultrasound-07/05/2024-
1.4 cm focal hypoechoic lesion in the right mid peripheral zone of the prostate gland. Diagnostic possibilities include 1 abscess given the history of prostatitis 2 complex cyst [address]-07/03/2024-
Left upper lobe mass compatible with carcinoma. Since prior CT of November 26, 2023, evidence for interval increase of extension of the mass into the left side of the mediastinum.
Nodular parenchymal opacities within both lower lobes have increased compared to prior CT examination, morphologic appearance most suggestive of pneumonia.
Interval improvement in reticulonodular and ground glass opacities within both upper lungs, mainly within the upper lobes, suggesting improvement in pneumonia and/or lymphangitic spread of carcinoma.
Minimal bilateral posterior pleural effusions.
Chest x-ray-07/02/2024-
Again seen are diffusely increased interstitial opacities bilaterally with more confluent appearance within the left apical and basilar segments. No new areas of airspace disease. No pleural effusions or pneumothorax.
--- NOTE | 2024-07-10 11:28 | W.PN.ONC ---
Today's Communication / Plan
-
Mgmt of prostate abscess per urology, ID
Further treatment of lung cancer TBD. Will likely obtain outpatient PET to assess status (done most recently at [facility] in March)
We will follow along
Impression
Impression
weakness
recurrent UTI, recently treated x1mo for prostatitis -- prostate abscess noted on 07/10 pelvic MRI
relapsed/recurrent lung cancer, currently on Keytruda. CT chest today concerning for local progression.
Plan
Plan
Mgmt of prostate abscess per urology, ID
Further treatment of lung cancer TBD. Will likely obtain outpatient PET to assess status (done most recently at [facility] in March)
We will follow along
Subjective/Objective
Subjective/Objective
reviewed MRI results - suggesting prostate abscess
patient w/o new complaints
Vital Signs:
Vital Signs
Temp Pulse Resp BP Pulse Ox
97.7 F 77 20 130/58 96
07/10/24 07:10 07/10/24 07:10 07/10/24 07:10 07/10/24 07:10 07/10/24 07:10
Lab Results:
Laboratory Data
WBC 10.7 10^3/uL (4.8-10.8) 07/10/24 05:25
Hgb 9.7 g/dL (13.0-18.0) L 07/10/24 05:25
Plt Count 325 10^3/uL (130-400) 07/10/24 05:25
eGFR 50.18 07/10/24 05:25
[2024-07-10 11:49] LABS: Glucose - Point of Care 136 mg/dl (70-99)
--- NOTE | 2024-07-10 12:23 | W.PN.CARDCBS ---
Addendum entered and electronically signed by Renato Blackburn MD 07/10/24 16:21:
I saw and examined the patient.
The Vehicle Safety Inspector's note was reviewed and I agree with the note.
Comment: Briefly, 83-year-old man past medical history of multivessel CAD, heart failure with preserved ejection fraction, paroxysmal atrial fibrillation on Eliquis, lung CA on chemo and orthostasis who presents again with hypoxia and CT findings
concerning for worsening lung cancer as well as possible pneumonia. He was also again found to have urinary tract infection and now MRI is concerning for prostatic abscess.
Eliquis/Plavix currently on hold for possible intervention involving his prostate
Add aspirin 81 mg daily given history of coronary stents while Eliquis/Plavix is on hold
Cont high intensity statin
Not currently volume overloaded on exam, hold standing diuretics
Cont midodrine/florinef for orthostasis
Original Note:
Today's Communication / Plan
-
Eliquis can be held if needed for surgery and then restart when safe form a surgical standpoint
Impression / Plan
-
PCP: Dr. Villa
Marble Carver: Dr. Blackburn
Impression:
Presented 07/02/2024 w/ weakness/fatigue/fall
Acute hypoxemic respiratory failure
UTI
chest pain
Acute HFpEF
Elevated Troponin
Orthostatic hypotension
Paroxysmal atrial fibrillation
hypereosinophilia
abnormal CXR 05/25/24
Chronic Eliquis anticoagulation, off Amio due to eosinophilia
CAD
urgent CABGx1 KINCAID-LAD (VF/VT arrest) 04/2015
PCI LM and LCx 06/2015
s/p cath with patent KINCAID-LAD and stents, non new occlusive disease 10/22/22
currently managed with Plavix, Eliquis, Crestor, Ranexa (Ranexa stopped this admission due to hypotension)
Non-small cell lung cancer s/p radiation 11/2022 currently on Carbo/Taxol, Pembrolizumab
h/o VT/VF arrest in 2014 in the setting of left main stenosis
COPD/Emphysema
PVD - fem bypass and [facility] 2016
CEA B/L 2018
AAA 3.2cm
CKD 3a
HTN
HLD
KIM
RBBB
DM2
Former smoker
Echo 10/22/2022�EF 65 to 70%.� Mild MR.� Aortic valve gradients 20/8 mmHg peak/mean consistent with mild aortic valve stenosis.� Trace TR with PA pressure 30 to 35 mmHg
Echo 11/28/2023: EF 50-55%, akinesis of the basal inferior wall, mild w/ peak/mean gradients 19/10 mmHg
Cardiac cath: 10/22/2022: stable CAD with prior left main to left circumflex stent patent, chronic total occlusion RCA, patent KINCAID to LAD, elevated LVEDP.
Plan:
-MRI suggests prostate abscess, urology following
-If patient is recommended prostate surgery then Eliquis can be held and restarted when safe from a surgical standpoint.
-Orthostasis will hopefully improve with treatment of infection and might help explain why orthostasis has essentially been unresponsive to midodrine 10 mg TID and Florinef 0.2 mg daily
-Flomax and Ranexa stopped this admission without obvious improvement in orthostasis
-Cosyntropin stim test did not show adrenal insufficiency
-Remains in SR with h/o paroxysmal Afib. It would not be unexpected for AF to eventually recur at which point rhythm control versus rate control options can be further explored.
-Outpatient dose of Eliquis 2.5 mg BID (age 83, wt 81 kg, Cre 1.3, but usually greater than 1.5) has been continued. If patient needs surgery then Eliquis can be held and restarted when safe from a surgical standpoint.
-Amiodarone previously stopped due to eosinophilia
-Troponin 0.038 on admission and will be managed as a nonischemic myocardial injury Troponin elevation
-Patient was taking torsemide 10 mg daily PRN weight gain prior to admission. Recorded bed scale weight is up 6 lbs overnight, but no increased edema, SOB or hypoxia. Cont to follow. pro-BNP is lower compared to previous. No indication for IV
diuresis
-EF 50-55% by echo 11/28/23
-Cannot take BB due to orthostasis
-Has had angioedema on ZACHARY inhibitors in the past.
Progress Note - Marble Carver
Subjective
Date of Service: July 10, 2024
He is lightheaded if he tries to sit up in bed
Objective
Labs:
07/10/24 05:25
07/10/24 05:25
Labs
Hgb 9.7 g/dL (13.0-18.0) L 07/10/24 05:25
Hct 29.7 % (39.0-52.0) L 07/10/24 05:25
Plt Count 325 10^3/uL (130-400) 07/10/24 05:25
Sodium 133 mmol/L (135-145) L 07/10/24 05:25
Potassium 4.9 mmol/L (3.5-5.1) 07/10/24 05:25
BUN 37 mg/dl (9-20) H 07/10/24 05:25
Creatinine 1.4 mg/dL (0.7-1.3) H 07/10/24 05:25
Glucose 106 mg/dl (70-99) H 07/10/24 05:25
Vital Signs and I&O:
Vital Signs
Temp Pulse Resp BP Pulse Ox
97.7 F 77 20 130/58 96
07/10/24 07:10 07/10/24 07:10 07/10/24 07:10 07/10/24 07:10 07/10/24 07:10
Vital Signs
Temp Pulse Resp BP Pulse Ox
97.7 F 77 20 130/58 96
07/10/24 07:10 07/10/24 07:10 07/10/24 07:10 07/10/24 07:10 07/10/24 07:10
Intake & Output
07/08/24 07/09/24 07/10/24 07/11/24
06:59 06:59 06:59 06:59
Intake Total 1200 / 1200 480 / 480
Output Total 500 / 500 450 / 450
Balance 700 / 700 480 / 480 -450 / -450
Physical Exam
Physical Exam
GEN: AAOx3
HEENT: mmm
LUNGS: No audible wheeze
CV: SR on tele
ABD: ND
EXT: No edema
NEURO: Gross non-focal
SKIN: No rash
--- NOTE | 2024-07-10 13:34 | PN.CDI ---
CDI
- -
CDI:
Physician Documentation Request
Admit Date: 07/02/24 16:26
Dear Doctor Pamela,
Please review the following and provide your response in the progress notes.
Clinical Indicators:
07/09/24 12:50 (created 07/09/24 13:36) - Wound Note
#Wound Location and type/assessment:
#...Patient known to service, admitted with: healing L knee blister/abrasion
#...s/p fall patient states. L buttock old healing skin
#...from shearing rather than true pressure.
#R buttock stage 2 PI, patient turns self.
Physician documentation of the type and location of wounds is required for compliant documentation. Based on the above clinical findings and your assessment, please provide the following in your progress note:
Yes, right buttock stage pressure injury, POA
No, right buttock stage 2 pressure injury
Other (please specify)
1. Location of the ulcer/wound, including laterality.
2. Type (etiology) of ulcer/wound:
- Diabetic ulcer
- Arterial (ischemic) ulcer
- Traumatic wound
- Venous stasis ulcer
- Pressure (decubitus) ulcer
3. For a non-pressure ulcer, please indicate the depth/severity:
- Limited to the breakdown of skin
- With fat layer exposed
- With necrosis of muscle
- With necrosis of bone
4. If a pressure ulcer, please also include the stage* of the ulcer:
- Stage 1 - Skin intact, non-blanchable redness
- Stage 2 - Partial thickness loss of dermis, includes intact or open blister
- Stage 3 - Full thickness tissue not including bone, tendon or muscle
- Stage 4 - Full thickness tissue loss, including exposed bone, tendon or muscle
Use of terms such as suspected, likely, concern for, or probable (associated with a specific diagnosis that is being evaluated, monitored, or treated as if it exists) are acceptable and can be coded in the inpatient setting, when documented at the
time of discharge.
Thank you,
Cinthya Vance RN BSN CCDS
CDI Specialist
please contact via tiger text
Please use your independent medical judgment in providing your response.
*Source: National Pressure Ulcer Advisory Panel (NPUAP)
[2024-07-10] MEDS: STERILE WATER FOR INJECTION 20 ML IV (15:08)
[2024-07-10] MEDS: ROCEPHIN 2000 MG IV (15:12)
[2024-07-10 15:43] VITALS: BP 126/64
--- NOTE | 2024-07-10 16:02 | W.PN.URO.CBU ---
Today's Communication / Plan
-
await irad to see if percutaneios drain can be perforned
Assessment / Plan
-
PROSTAA ABCESS IRAD CHECKING TO SEE IF THEY CAN ACES WE CAN TURP BUT PROHIBITVE RISK WITH NESTHESIAAND HEMATURI complications spoke with pt who wants everythingdone will hold anticoagulanyts and await irad determiatio if they cannot afely acess
then need amesthesia consult for high risk pt and cardiac clearance for turp
Diagnosis
-
Date of Service: July 10, 2024
-
Patient Diagnosis:
Post Op Day:
Patient Diagnosis:
Post Op Day:
Patient Diagnosis:
Post Op Day:
Patient Diagnosis:
Post Op Day:
Patient Diagnosis:recurrent uti possibl;r prostatitis but pt with bph partil rention diabetic and on keytruda for metastaixc sq cell lung ca hAD prostae u/s shwing non diagnotic 1 cm mass MRICONFIRMED ABCESS
Post Op Day:
Subjective
-
prostae abcess
Objective
-
Vital Signs
Temp Pulse Resp BP Pulse Ox
98 F 74 18 126/64 94
07/10/24 15:43 07/10/24 15:43 07/10/24 15:43 07/10/24 15:43 07/10/24 15:43
Intake and Output
07/09/24 07/10/24 07/11/24
06:59 06:59 06:59
Intake Total 480 / 480
Output Total 450 / 450
Balance 480 / 480 -450 / -450
Intake:
Oral fluids 480 / 480
Output:
Urine, Voided 450 / 450
Other:
Number of approximated SMALL 1
amounts of urine
How many times incontinent 1
MODERATE amount urine
How many times incontinent 1
SATURATED amount urine
Laboratory Results
07/10/24 05:25
07/10/24 05:25
Review of Systems
-
Respiratory: Trouble Breathing
: No Symptoms
Physical Exam
-
General - well developed, well nourished, no acute distress
Chest - clear bilaterally
Abdomen - soft, non-tender, positive bowel sounds, no CVAT, no incisional pain or distention
Genitalia - normal
Rectal - normal
Skin - warm & dry with no rash
Neuro - AOx3, no motor deficits
Extremities - no clubbing, no cyanosis, no edema
Incision - clean, dry
Dressing - clean, dry, intact
Care Review
Data Reviewed
Discussed with: Cardiology, Hospitalist and IRAD
MRI: Image Pers Reviewed
Total Time Spent with Patient (in minutes): 80 minuts
[2024-07-10 16:28] LABS: Glucose - Point of Care 94 mg/dl (70-99)
[2024-07-10 21:49] LABS: Glucose - Point of Care 110 mg/dl (70-99)
[2024-07-10] MEDS: LANTUS 0.1 UNITS SC (22:37)
[2024-07-10 23:00] VITALS: BP 115/62
--- NOTE | 2024-07-11 04:04 | DOWNTIME ---
There was a [employer] Downtime on 07/11/2024 from 0100 to 07/11/2024 at 0355. Downtime documentation of patient's care, including medication administrations, has been reconciled in the electronic record per guidelines. Refer to the
patient's paper chart under the miscellaneous tab to see printed paper medication records and downtime forms.
[2024-07-11 05:42] LABS: Blood Urea Nitrogen 37 mg/dl (9-20); Calcium 10.1 mg/dl (8.4-10.2); Carbon Dioxide 29 mmol/L (22-30); Chloride 97 mmol/L (98-107); Estimated Creatinine Clearance 44 ml/min; Glucose 104 mg/dl (70-99); Magnesium 1.9 mg/dl (1.6-2.3); Sodium 133 mmol/L (135-145); eGFR 50.18
[2024-07-11 06:00] VITALS: BMI 23.3
[2024-07-11 06:19] LABS: Hematocrit 31.1 % (39.0-52.0); Hemoglobin 10.2 g/dL (13.0-18.0); Mean Corp Hgb Conc. 32.8 g/dL (33.0-37.0); Mean Corpuscular Hgb 29.7 pg (27.0-31.0); Mean Corpuscular Volume 90.4 fL (80.0-94.0); Mean Platelet Volume 8.7 fL (7.4-10.4); Platelet Count 324 10^3/uL (130-400); Red Blood Cell Count 3.44 10^6/uL (4.70-6.10); Red Cell Dist. Width 14.6 % (11.5-14.5); White Blood Cell Count 12.6 10^3/uL (4.8-10.8)
[2024-07-11 07:26] LABS: Glucose - Point of Care 117 mg/dl (70-99)
[2024-07-11 07:30] VITALS: BP 124/55
--- NOTE | 2024-07-11 07:59 | W.PN.ONC2 ---
Today's Communication / Plan
-
Possible IR drainage of prostate abscess.
Impression
Impression
Prostate Abscess
recurrent UTI, recently treated x1mo for prostatitis
relapsed/recurrent lung cancer, currently on Keytruda. CT chest today concerning for local progression.
Plan
Plan
Mgmt of prostate abscess per urology, ID. For IR drainage if possible
Further treatment of lung cancer TBD. Will likely obtain outpatient PET to assess status (done most recently at [facility] in March)
We will follow along
Subjective/Objective
Chief Complaint
ACS Heme Onc
Subjective
No c/o
Vital Signs:
Vital Signs
Temp Pulse Resp BP Pulse Ox
98.2 F 74 18 115/62 93
07/10/24 23:00 07/10/24 23:00 07/10/24 23:00 07/10/24 23:00 07/10/24 23:00
Lab Results:
Laboratory Data
WBC 12.6 10^3/uL (4.8-10.8) H 07/11/24 05:07
Hgb 10.2 g/dL (13.0-18.0) L 07/11/24 05:07
Plt Count 324 10^3/uL (130-400) 07/11/24 05:07
eGFR 50.18 07/11/24 05:07
Physical Exam
NAD, non toxic. Unchanged
[2024-07-11 08:24] LABS: % Basophils 0.4 % (0-2); % Eosinophils 16.9 % (0-6); % Lymphocytes 5.2 % (20.5-51.1); % Monocytes 8.3 % (1.7-9.3); % Neutrophils 68.2 % (42.2-75.2); Absolute Basophils 0.1 10^3/uL (0-0.2); Absolute Eosinophils 2.1 10^3/uL (0-0.7); Absolute Immature Granulocytes 0.1 10^3/uL (0-0.05); Absolute Lymphocytes 0.7 10^3/uL (1.2-3.4); Absolute Monocytes 1.1 10^3/uL (0.1-0.6); Absolute Neutrophils 8.6 10^3/uL (1.4-6.5); Nucleated Red Blood Cells % 0 % (-)
[2024-07-11 08:34] VITALS: BP 121/61; BP 124/55; PULSE 81
[2024-07-11] MEDS: FLORINEF 0.2 MG PO (08:38)
[2024-07-11] MEDS: FLORASTOR 250 MG PO ×2 (08:38→19:50)
[2024-07-11] MEDS: NOVOLOG FLEXPEN-LOW RESISTANCE SC ×2 (08:38→17:07)
[2024-07-11] MEDS: CRESTOR 5 MG PO (08:38)
[2024-07-11] MEDS: VISBIOME 1 CAP PO (08:39)
[2024-07-11] MEDS: PROSCAR 5 MG PO (08:39)
[2024-07-11] MEDS: ProAmatine 10 MG PO ×3 (08:39→16:59)
[2024-07-11] MEDS: ASPIR LOW (ENTERIC COATED) 81 MG PO (08:39)
[2024-07-11] MEDS: VIBRAMYCIN 100 MG PO ×2 (08:39→19:50)
[2024-07-11] MEDS: TYLENOL 650 MG PO ×3 (08:40→22:09)
[2024-07-11] MEDS: COLACE PO (08:42)
--- NOTE | 2024-07-11 09:02 | W.PN.HOSP.TC ---
Addendum entered and electronically signed by Danitza Santiago MD 07/11/24 15:13:
# Mild Hyponatremia
Original Note:
Today's Communication/Plan
-
see A/P
Assessment / Plan
Assessment / Plan
A/P:
# generalized weakness/fall
very orthostatic despite midodrine 10 mg TID, florinef added 07/05 by card and increased to 0.2 mg daily
flomax and Ranexa stopped (both can cause hypotension)
cosyntropin STIM test without adrenal insufficiency
cont abdominal binder
PT/OT recc SNF
# acute hypoxemic respiratory failure likely from progression of lung cancer
Now on 6L NC, wean as tolerated, pt not on home O2
CXR with diffuse interstitial opacities,
CT chest with interval increase of extension of the mass into the left side of the mediastinum
# E. coli Urinary tract infection, likely due to prostatitis
ceftriaxone discontinued, changed to doxycycline with plan to continue 6 weeks
prostate US noted
ID on board
# prostate abscess
prostate US noted 1.4 cm focal hypoechoic lesion in the right mid peripheral zone of the prostate gland. Diagnostic possibilities are (1) an abscess given the history of prostatitis, (2) a complex cyst, or (3) adenocarcinoma.
pelvic MRI noted: 1.8 x 1.3 x 1.1 cm peripherally enhancing focus within the posterior lateral right peripheral zone in the mid/apical aspect of the gland which is most likely likely an abscess. This appears to correlate with the abnormality seen on
recent ultrasound.
IR consulted for aspiration, deemed not easily accessible
Uro on board, ? TURP TBD
Plavix/Eliquis on hold, Card on board
Pulm CS for preop clearance per Uro request
# Cough, possible HAP
CXR noted increase in parenchymal opacity within both lungs, greater on the left compared to the right. The appearance is highly suggestive of bilateral pneumonia.
SPL eval
added empiric ceftriaxone
# anemia of chronic disease
no evidence for bleeding
stable HGB
# increased peripheral eosinophilia, likely due to malignancy or Keytruda (although predates starting Keytruda per ID)
# CKD stage 3b
SCr today at 1.4, at baseline
# Type 2 DM
cover with sliding scale
Cont Lantus 10 u HS
# Lung cancer of left lobe, squamous cell carcinoma
Primary oncologist is Dr. Shin
s/p SBRT, completed carbo/taxol 04/17/2024, was on Keytruda
spoke with Dr. Shin, needs PET at [facility] where his other scans are
# Chronic diastolic congestive heart failure
hold torsemide
Off Ranexa due to orthostatic hypotension
# Paroxysmal AFib
# CAD s/p CABG KINCAID-LAD 04/2015. PCI LM and LCX 06/2015; 09/2022 post cath with patent KINCAID to LAD and stent and no new obstructive CAD
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
Eliquis 2.5 mg twice daily, Plavix 75 mg daily on hold
ASA added while off Eliquis and Plavix
apprec cards
# BPH
Off Flomax due to orthostatic hypotension
cont finasteride
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
# Hypercholesterolemia
Continue Crestor
DVT PPx: Eliquis 2.5 mg BID on hold
Code Status: Full code
DW RN
total time spent 51 min
Anticipated Discharge: > 48 hours
Subjective/Interval History
-
Date of Service: July 11, 2024
Objective Data
-
Labs:
Laboratory Results
07/11/24
05:07
WBC 12.6 H
Hgb 10.2 L
Hct 31.1 L
Plt Count 324
Sodium 133 L
Potassium 5.0
Chloride 97 L
Carbon Dioxide 29
BUN 37 H
Creatinine 1.4 H
Glucose 104 H
Calcium 10.1
Vital Signs:
Vital Signs
Temp Pulse Resp BP Pulse Ox
36.7 C 81 18 124/55 93
07/11/24 07:30 07/11/24 08:39 07/11/24 07:30 07/11/24 08:39 07/11/24 08:36
I&O
07/10/24 07/11/24 07/12/24
06:59 06:59 06:59
Intake Total 1060 / 1060
Output Total 450 / 450 325 / 325
Balance -450 / -450 735 / 735
Review of Systems
-
All other systems: Reviewed and negative
Physical Exam
-
General: Well Developed, Well Nourished and Appears Chronically Ill
HEENT: Normocephalic, Atraumatic and Oxygen (6L NC)
Respiratory: Clear to Auscultation and Non Labored Respirations; Negative Accessory Resp Muscle Use
Cardiac: Regular Rhythm and S1/S2; Negative Murmur
GI: Soft, Nontender, Nondistended and Normal Bowel Sounds
Musculoskeletal: No Clubbing, No Cyanosis and No Edema
Neuro: Awake
Psych: Calm and Intact Judgement/Insight
Data Reviewed
-
MRI: Report Reviewed by me, Discussed with Physician and Discussed with Patient
Labs: Labs Reviewed by me
[2024-07-11] MEDS: DESENEX/MITRAZOL/ZEASORB 1 APPLIC TOPICAL ×2 (09:12→19:53)
--- NOTE | 2024-07-11 09:18 | PN.CDI ---
CDI
- -
CDI:
Physician Documentation Request
Admit Date: 07/02/24 16:26
Dear Doctor Pamela,
Please review the following and provide your response in the progress notes.
Clinical Indicators:
Laboratory Tests
07/02/24 07/03/24 07/04/24
11:46 06:03 07:53
Sodium 133 L 135 133 L
07/05/24 07/06/24 07/07/24
03:58 04:52 08:18
Sodium 133 L 136 135
07/09/24 07/10/24 07/11/24
08:08 05:25 05:07
Sodium 133 L 133 L 133 L
Based on the above and your clinical assessment, please clarify in the progress notes, the appropriate diagnosis, if significant, that supports the above abnormalities and additional evaluation, monitoring and/or treatment rendered:
Hyponatremia
Abnormal lab value, clinically insignificant
Other(please clarify)
Use of terms such as suspected, likely, concern for, or probable (associated with a specific diagnosis that is being evaluated, monitored, or treated as if it exists) are acceptable and can be coded in the inpatient setting, when documented at the
time of discharge.
Thank you,
Cinthya Vance RN BSN CCDS
CDI Specialist
please contact via tiger text
Please use your independent medical judgment in providing your response.
--- NOTE | 2024-07-11 09:53 | CM ---
PT OT indicate SNF need at dc.
Several SNf in care [place] .Only [facility] interested with bed.
Pt not medically ready for dc yet.
Orthostatic BP remains.
On new oxygen 6 liter Pox 93%.
Needs Ct chest.
Oncology involved.
PLAN To Snf when medically ready
--- NOTE | 2024-07-11 10:04 | CON.PUL ---
Consultation
Consultation Request
Date/Time Consultation Requested: 07/11/2024909
Date/Time Consultation Performed: 07/11/2024939
Requesting Provider: Dr. Santiago
Performing Provider: Dr. Lobato
Reason for Consultation: Pre-op risk stratification
Medical History
-
Chief Complaint: Weakness + fall
History of Present Illness:
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
(04/2015), COPD/emphysema, hypertension, hyperlipidemia, DM type II, PVD s/p vein stripping + femoral bypass (2019), CKD and history of aortic aneurysm who presented from rehab for weakness. Patient fell to the floor with no loss of consciousness or
head trauma. He was hypoxic at the retirement. In the ER he was 84% on room air and improved to 90% with 2 L/min. He was afebrile to 98 �F, pulse rate 70, breathing at 16 breaths/min, and BP 93/53. Initial labs showed normal WBC at 6.6, anemia
to 8.6, absolute eosinophil count: 400, creatinine 1.9, BUN 35, albumin level 1.6, +2 leukocyte esterase on urinalysis, and COVID antigen negative. Urine culture sent. Initial CXR showed diffusely increased interstitial opacities with no pleural
effusions or pneumothorax. He was given IVF with 500 cc of NS 0.9% + Zosyn in the ER, and admitted to the hospitalist service for further care. Antibiotics were started and CT chest was obtained on 07/03/2024 showing recurrent left upper lobe lung
cancer. Of note, he is currently on Keytruda. He also was recently treated for 1 month with antibiotics for prostatitis. ID consulted, and a prostate transrectal ultrasound was performed on 07/05/2024 showing a 1.4 cm focal hypoechoic lesion in
the right mid peripheral zone of the prostate gland. A pelvic MRI performed on 07/10/2024 showed a 1.8 x 1.3 x 1.1 cm peripherally enhancing lesion in the posterior lateral right peripheral zone of the prostate gland which is highly suspicious for
an abscess. Also mild BPH changes. Urology is consulted and patient is awaiting percutaneous drainage via IR versus surgery. Patient has required oxygen throughout this hospital course needing between 2-4 L/min, however on the evening of 07/09 he
has required 6 L/min. Pulmonary service now consulted for preoperative risk stratification for prostate drainage of abscess.
When I saw the patient he was in bed, lethargic but answering my questions appropriately, currently on 8 L/min and saturating 90%. He was breathing comfortably. Currently denies SOB or cough. Denies chest pain, VIDAL, abd pain, N/V/f/c. He denies
being on oxygen at home.
Of note, patient follows with us in the pulmonary office -last visit on 04/03/2024 with VJ Wild. He has a history of COPD however he endorses chronic exertional shortness of breath with no reported acute exacerbations. Inhalers were
not initiated. In the past, KIM was discussed however he has declined workup previously. Last full PFT performed in February 2023 showing mild COPD with borderline significant bronchodilator response and marked improvement in the small lung dexter
concerning for reactive airway disease vs asthma. There was no evidence of restriction and there was a moderate gas exchange capacity defect.
PMHx: MICHEAL SCC s/p SBRT (11/2022) with progression via PET/CT in July 2023 s/p chemoimmunotherapy in October 2023 with Keytruda + carbo/Taxol, A-fib on Eliquis, CAD s/p CABG, history of VT/VF arrest (04/2015), COPD/emphysema, former tobacco
smoker, hypertension, hyperlipidemia, DM type II, BPH, RBBB, PVD s/p vein stripping + fem bypass (2019), bilateral CEA, CKD, history of aortic aneurysm
PSHx: Femoral bypass (2019), bilateral carotid endarterectomy (2018), CABG (04/2015), cholecystectomy, vein stripping and vein replacement
Past Medical History
Past Medical History: Other (Above as per HPI)
Past Surgical History: Other (Above as per HPI)
Social History
Tobacco: Former Smoker
Alcohol: None
Drug: None
Personal: Single
Living: Alf
Family History
Family History: CAD
Allergies / Home Medications
Allergies
Allergy/AdvReac Type Severity Reaction Status Date / Time
amiodarone Allergy Intermediate eosinophili Verified 07/04/24 13:07
a
ZACHARY Inhibitors Allergy Shortness Verified 07/02/24 11:22
of
Breath-possible
angioedema-pharm
to review
Iodinated Contrast Media Allergy affected Verified 07/02/24 11:22
[Iodinated Contrast Media - kidneys
Oral and]
sulfamethoxazole Allergy Rash Verified 07/02/24 11:22
[From Bactrim]
trimethoprim [From Bactrim] Allergy Rash Verified 07/02/24 11:22
Home Medications
�Medication �Instructions �Recorded �Confirmed �Last Taken �Type
tamsulosin 0.4 mg capsule 0.4 mg PO DAILY Urinary issue 07/15/22 07/02/24 05/21/24 History
azelastine 137 mcg (0.1 %) nasal 1 spray intranasal BIDPRN PRN 09/14/23 07/02/24 11/18/23 History
spray congestion
apixaban 2.5 mg tablet (Eliquis) 2.5 mg PO BID #60 tabs 12/03/23 07/02/24 05/21/24 Rx
Lactobacillus-Bifidobacterium 30 1 cap PO DAILY Gastrointestinal 01/05/24 07/02/24 05/21/24 History
billion cell capsule,delayed Issue
release (Ultimate Mena Probiotic)
clopidogrel 75 mg tablet 75 mg PO DAILY Blood Clot 01/05/24 07/02/24 05/21/24 History
Prevention/Tx
dextromethorphan-guaifenesin 30 1 tab PO [id number] PRN congestion ##0 01/05/24 07/02/24 Unknown History
mg-600 mg tablet extended
[id number] hr (Mucinex DM)
psyllium 1 packet PO HS constipation 01/05/24 07/02/24 05/20/24 History
acetaminophen 325 mg tablet 650 mg PO Q4HPRN PRN mild pain 05/21/24 07/02/24 Unknown History
(Tylenol)
ammonium lactate 12 % lotion 1 applic topical DAILYPRN PRN B/L 05/21/24 07/02/24 Unknown History
legs
triamcinolone acetonide 0.1 % 1 applic topical BIDPRN PRN rash 05/21/24 07/02/24 Unknown History
topical ointment on buttocks
finasteride 5 mg tablet 5 mg PO DAILY #30 tabs 05/30/24 07/02/24 Unknown Rx
Saccharomyces boulardii 250 mg 250 mg PO BID 07/02/24 07/02/24 Unknown History
capsule (Florastor)
acetaminophen 500 mg tablet 500 mg PO TID 07/02/24 07/02/24 Unknown History
(Tylenol Extra Strength)
bisacodyl 10 mg rectal suppository 10 mg WA DAILYPRN PRN IF NO BM 07/02/24 07/02/24 Unknown History
(Dulcolax (bisacodyl)) AFTR MOM
coQ10 (ubiquinol) 100 mg capsule 100 mg PO DAILY 07/02/24 07/02/24 Unknown History
docusate sodium 100 mg capsule 100 mg PO DAILY 07/02/24 07/02/24 Unknown History
(Colace)
insulin aspart U-100 100 unit/mL 10 sliding scale dose SC AC 07/02/24 07/02/24 Unknown History
subcutaneous solution
insulin glargine 100 unit/mL (3 10 unit SC DAILY@1900 Diabetes 07/02/24 07/02/24 Unknown History
mL) subcutaneous pen (Lantus
Solostar U-100 Insulin)
magnesium hydroxide 400 mg/5 mL 2,400 mg PO DAILYPRN PRN IF NO BM 07/02/24 07/02/24 Unknown History
oral suspension (Milk of Magnesia) IN 2/3 DAYS
methenamine hippurate 1 gram 1 g PO DAILY 07/02/24 07/02/24 Unknown History
tablet (Hiprex)
midodrine 10 mg tablet 10 mg PO TID 07/02/24 07/02/24 Unknown History
mupirocin 2 % topical ointment 1 applic topical DAILY BUTTOCKS 07/02/24 07/02/24 Unknown History
ranolazine 500 mg tablet,extended 500 mg PO BID 07/02/24 07/02/24 Unknown History
release,12 hr
rosuvastatin 5 mg tablet (Crestor) 5 mg PO DAILY 07/02/24 07/02/24 Unknown History
sodium phosphates 19 gram-7 118 ml WA DAILYPRN PRN IF NO BM 07/02/24 07/02/24 Unknown History
gram/118 mL enema (Fleet Enema) AFTR DULCOLAX
torsemide 20 mg tablet 10 mg PO DAILYPRN PRN WEIGHT GAIN 07/02/24 07/02/24 Unknown History
Review of Systems
-
History Source: Patient
All other systems: Negative unless noted
Vitals / Labs / Diagnostic Testing
Vital Signs
Temp Pulse Resp BP Pulse Ox
98.1 F 81 18 124/55 93
07/11/24 07:30 07/11/24 08:39 07/11/24 07:30 07/11/24 08:39 07/11/24 08:36
Lab Data
07/11/24 05:07
07/11/24 05:07
Microbiology
07/09/24 15:26 Nasal Swab Influenza Types A & B (MARY) - Final
Negative for Influenza A & B, NAAT
Negative results must be combined with clinical observations
and patient history.
Nucleic Acid Amplification test (NAAT)performed on the
[employer] platform.
Diagnostic Testing:
Physical Exam
-
HEENT: Normocephalic and Anicteric
Cardiovascular: S1/S2 and Peripheral Edema (negative)
Respiratory: Wheeze (negative), Rales (Bilaterally) and Rhonchi (negative)
GI: Soft, Non Distended, Non Tender and Normal Bowel Sounds
Neurology: Tremors (negative) and Other (Lethargic)
Skin: Warm and Dry
General: Respiratory Distress (negative), Comfortable, Chills (negative), Sweats (negative) and Other (Lethargic but answering my questions appropriately)
Assessment
-
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 He was also hypoxic at the
retirement. He was found to have a UTI and was admitted to the hospitalist service and started on antibiotics. ID consulted and a transrectal prostate ultrasound was performed on 07/05/2024 showing a 1.4 cm focal hypoechoic lesion in the right
mid peripheral zone of the prostate gland. Subsequent pelvic MRI on 07/10/2024 showed concern for a prostate abscess. Urology consulted and he is now awaiting either percutaneous drainage via IR versus surgery. He has remained on oxygen
throughout this hospital course with worsening O2 requirements since the evening of 07/09. Pulmonary service now consulted for preoperative stratification for prostate drainage of suspected abscess.
Chronic conditions STILL RUNNER: MICHEAL SCC s/p SBRT (11/2022) with progression via PET/CT in July 2023 s/p chemoimmunotherapy in October 2023 with Keytruda + carbo/Taxol, A-fib on Eliquis, CAD s/p CABG, history of VT/VF arrest (04/2015), COPD/emphysema,
former tobacco smoker, hypertension, hyperlipidemia, DM type II, BPH, RBBB, PVD s/p vein stripping + fem bypass (2019), bilateral CEA, CKD, history of aortic aneurysm
Impression:
#Sepsis without shock due to right-sided prostate abscess, UTI + pneumonia
#Suspected bilateral pneumonia vs post-obstructive MICHEAL PNA in setting of bilateral lymphangitic carcinomatosis; component of aspiration pneumonia is suspected
#Mediastinal lymphadenopathy seen on CT chest from 07/03/2024, likely due to known MICHEAL lung cancer
#Recurrent UTI/bacterial prostatitis due to E. coli (R=cipro)
#Hx of MICHEAL NSCLC (SCC) with recurrence with Hx of SBRT (11/2022) and chemoimmunotherapy with keytra, carbo/taxol
#Acute respiratory failure with hypoxia on supplemental oxygen due to above
#Anemia (baseline Hb 8-10g/dL)
#Hypereosinophilic syndrome
#Hypochloremic, hyponatremia
#CKD (baseline Cr 1.3)
#DM type II c/b hyperglycemia (HbA1c: 8 on 07/03/2024)
#Hypoalbuminemia due to poor nutritional status
#Orthostatic hypotension
#COPD/emphysema not on inhalers as an outpatient
#Former tobacco smoker
Plan:
- CT chest from 07/03/2024 shows suspected local recurrence of known MICHEAL lung cancer with residual reticular nodular opacities, bilateral nodular opacities and bilateral upper lobe intralobular septal thickening with concern for lymphangitic
carcinomatosis; he also has small bilateral pleural effusions with differential including malignant effusion, acute decompensated heart failure vs parapneumonic
- Infectious disease is following - defer Abx to them (currently on rocephin + doxy)
- He is apparently been coughing + choking and VERIFICATION MANAGER evaluation is recommended
- Pelvic MRI shows right-sided prostate abscess to urology consulted and awaiting IR consultation to assess for percutaneous drainage; otherwise he may need to go to OR
- Plavix + Eliquis on hold (last dose omn 07/10/2024); remains on ASA
- He is intermediate�high risk for procedure especially if he receives general anesthesia given his septic state with multiple infections that we are treating
- Thankfully his ARISCAT score is low for postoperative pulmonary complications (1.6% risk of in-hospital post-op pulmonary complications (composite including respiratory failure, respiratory infection, pleural effusion, atelectasis, pneumothorax,
bronchospasm, aspiration pneumonitis)
- Maintain MAP>65
- Recent cosyntropin stimulation test showed no evidence of adrenal insufficiency
- His serum albumin level is low --> if BP drops with SBP<105mmHg then give 25g 25% x 2 doses
- Continue midodrine and florinef as well with holding paremeters
- Cardiology following, recs appreciated
- Defer diuresis to cardiology; proBNP elevated but lower compared to prior values (currently 1320 on 07/10/2024)
- Maintain SpO2 88-95% with supplemental O2, and wean as tolerated
- Continue to trend eosinophil count
- Check IgE level
- He does have a borderline significant bronchodilator response with marked improvement in the small lung field seen on PFT from February 2023, hence it is fair to suspect he has component of RAD vs asthma
- Although he is hypoxic on supplemental oxygen, given his active infection with pelvic abscess, pneumonia + UTI, hold off on systemic steroids at this time given risks >benefits
- If O2 requirements worsen then will need to strongly consider starting systemic steroids
- In interim, start DuoNebs BID with budesonide with prn nebulized bronchodilators for any breakthrough symptoms
- Consider starting LAMA upon discharge
- Monitor H/H and transfuse as needed to keep Hb>7g/dL; keep plt>50k given upcoming procedure
- Incentive spirometer encouraged as tolerated
- Trend sNa with goal 135-145
- Replete electrolytes with K>4, Mg>2
- Maintain euglycemia with goal BG >100 and <180 with basal-bolus insulin dosing
- DVT ppx: SCDs for now given potential upcoming prostate drainage; hold Eliquis (last dose given 07/10/2024)
Pulmonary service will continue to follow along. Ultimately, outpatient follow-up will be arranged with our office given last visit on 04/03/2024 with VJ Wild.
Data:
Pelvis MRI w + w/o contrast 07/10/2024:
1.8 x 1.3 x 1.1 cm peripherally enhancing, T2 hyperintense focus within the posterior lateral right peripheral zone in the mid/apical aspect of the gland which is most likely likely an abscess. This appears to correlate with the abnormality seen on
recent ultrasound.
Mild BPH changes.
There are numerous diverticuli along the posterior aspect of the urinary bladder which measure up to 2.4 cm. There is additional prominent trabeculations of the urinary bladder. Findings are likely sequelae of chronic outlet obstruction.
[place] diverticulosis.
CT Chest w/o contrast 07/03/2024:
Left upper lobe mass compatible with carcinoma. Since prior CT of November 26, 2023, evidence for interval increase of extension of the mass into the left side of the mediastinum.
Nodular parenchymal opacities within both lower lobes have increased compared to prior CT examination, morphologic appearance most suggestive of pneumonia.
Interval improvement in reticulonodular and groundglass opacities within both upper lungs, mainly within the upper lobes, suggesting improvement in pneumonia and/or lymphangitic spread of carcinoma.
Minimal bilateral posterior pleural effusions.
Total time spent today was 77 minutes for this encounter. Time includes reviewing laboratory test/imaging results, reviewing pertinent medical records, obtaining and reviewing medical history, performing an appropriate exam, ordering medications,
tests and procedures. Time also includes documentation of this encounter, coordinating patient care and communicating with other healthcare professionals. Total time does not include separately billed tests performed on this date of service.
--- NOTE | 2024-07-11 10:16 | W.PN.CARDCBS ---
Addendum entered and electronically signed by Renato Blackburn MD 07/11/24 12:59:
I saw and examined the patient.
The Welt Drawer's note was reviewed and I agree with the note.
Comment: Briefly, 83-year-old man past medical history of multivessel CAD, heart failure with preserved ejection fraction, paroxysmal atrial fibrillation on Eliquis, lung CA on chemo and orthostasis who presents again with hypoxia and CT findings
concerning for worsening lung cancer as well as possible pneumonia. He was again found to have urinary tract infection and now MRI is concerning for prostatic abscess.
Eliquis/Plavix currently on hold for possible intervention involving his prostate
Add aspirin 81 mg daily given history of coronary stents while Eliquis/Plavix is on hold
Cont high intensity statin
Volume status appears reasonable today, continue to hold diuretics
Cont midodrine/florinef for orthostasis
Original Note:
Today's Communication / Plan
-
Eliquis on hold for prostate abscess drainage vs surgical intervention
Cont midodrine and Florinef
Impression / Plan
-
PCP: Dr. Villa
Stonecutter Apprentice Hand: Dr. Blackburn
Impression:
Presented 07/02/2024 w/ weakness/fatigue/fall
Acute hypoxemic respiratory failure
UTI
chest pain
Acute HFpEF
Elevated Troponin
Orthostatic hypotension
Paroxysmal atrial fibrillation
hypereosinophilia
abnormal CXR 05/25/24
Chronic Eliquis anticoagulation, off Amio due to eosinophilia
CAD
urgent CABGx1 KINCAID-LAD (VF/VT arrest) 04/2015
PCI LM and LCx 06/2015
s/p cath with patent KINCAID-LAD and stents, non new occlusive disease 10/22/22
currently managed with Plavix, Eliquis, Crestor, Ranexa (Ranexa stopped this admission due to hypotension)
Non-small cell lung cancer s/p radiation 11/2022 currently on Carbo/Taxol, Pembrolizumab
h/o VT/VF arrest in 2014 in the setting of left main stenosis
COPD/Emphysema
PVD - fem bypass and TECHNICAL SUPPORT INTERN LCF 2016
CEA B/L 2018
AAA 3.2cm
CKD 3a
HTN
HLD
KIM
RBBB
DM2
Former smoker
Echo 10/22/2022�EF 65 to 70%.� Mild MR.� Aortic valve gradients 20/8 mmHg peak/mean consistent with mild aortic valve stenosis.� Trace TR with PA pressure 30 to 35 mmHg
Echo 11/28/2023: EF 50-55%, akinesis of the basal inferior wall, mild w/ peak/mean gradients 19/10 mmHg
Cardiac cath: 10/22/2022: stable CAD with prior left main to left circumflex stent patent, chronic total occlusion RCA, patent KINCAID to LAD, elevated LVEDP.
Plan:
-Urology following and MRI suggests prostate abscess. IRAD evaluating for possible drain placement and if drain cannot be placed then surgical option to be considered.
-Eliquis can be held and restarted when safe from a surgical standpoint.
-Started on aspirin 81 mg daily 07/11/24
-Orthostasis will hopefully improve with treatment of infection and might help explain why orthostasis has essentially been unresponsive to midodrine 10 mg TID and Florinef 0.2 mg daily
-Flomax and Ranexa stopped this admission without obvious improvement in orthostasis
-Cosyntropin stim test did not show adrenal insufficiency
-Remains in SR with h/o paroxysmal Afib. It would not be unexpected for AF to eventually recur at which point rhythm control versus rate control options can be further explored.
-Amiodarone previously stopped due to eosinophilia
-Troponin 0.038 on admission and will be managed as a nonischemic myocardial injury Troponin elevation
-Patient was taking torsemide 10 mg daily PRN weight gain prior to admission. Recorded bed scale weight is up 6 lbs overnight, but no increased edema, SOB or hypoxia. Cont to follow. pro-BNP is lower compared to previous. No indication for IV
diuresis
-EF 50-55% by echo 11/28/23
-Cannot take BB due to orthostasis
-Has had angioedema on ZACHARY inhibitors in the past.
Progress Note - Stonecutter Apprentice Hand
Subjective
Date of Service: July 11, 2024
He doesn't want to stand up because it makes him lightheaded
Objective
Labs:
07/11/24 05:07
07/11/24 05:07
Labs
Hgb 10.2 g/dL (13.0-18.0) L 07/11/24 05:07
Hct 31.1 % (39.0-52.0) L 07/11/24 05:07
Plt Count 324 10^3/uL (130-400) 07/11/24 05:07
Sodium 133 mmol/L (135-145) L 07/11/24 05:07
Potassium 5.0 mmol/L (3.5-5.1) 07/11/24 05:07
BUN 37 mg/dl (9-20) H 07/11/24 05:07
Creatinine 1.4 mg/dL (0.7-1.3) H 07/11/24 05:07
Glucose 104 mg/dl (70-99) H 07/11/24 05:07
Vital Signs and I&O:
Vital Signs
Temp Pulse Resp BP Pulse Ox
98.1 F 81 18 124/55 93
07/11/24 07:30 07/11/24 08:39 07/11/24 07:30 07/11/24 08:39 07/11/24 08:36
Vital Signs
Temp Pulse Resp BP Pulse Ox
98.1 F 81 18 124/55 93
07/11/24 07:30 07/11/24 08:39 07/11/24 07:30 07/11/24 08:39 07/11/24 08:36
Intake & Output
07/09/24 07/10/24 07/11/24 07/12/24
06:59 06:59 06:59 06:59
Intake Total 480 / 480 1060 / 1060
Output Total 450 / 450 325 / 325
Balance 480 / 480 -450 / -450 735 / 735
Physical Exam
Physical Exam
GEN: AAOx3
HEENT: mmm
LUNGS: No audible wheeze
CV: SR on tele
ABD: ND
EXT: No edema
NEURO: Gross non-focal
SKIN: No rash
[2024-07-11 12:20] LABS: Glucose - Point of Care 226 mg/dl (70-99)
[2024-07-11] MEDS: NOVOLOG FLEXPEN-LOW RESISTANCE 2 UNITS SC (12:41)
[2024-07-11] MEDS: PULMICORT INH (13:01)
[2024-07-11] MEDS: DUONEB INH (13:01)
--- NOTE | 2024-07-11 13:43 | PTOTSP ---
Speech Therapy Evaluation Note:
Pt with functional oral stage and suspect at least mild pharyngeal stage dysphagia. Pt with no overt s/sx of aspiration on evaluation with thin liquids via cup/straw, regular solids, or when taking medications with RN. Pt at an increased risk of
aspiration due to history of lung cancer, cardiac history, current pneumonia, and current respiratory status.
Recommend:
1. IDDSI Level 7 (regular) and thin liquids
2. Medications as tolerated
3. General aspiration precautions
4. VSE to further assess oropharyngeal swallow function given pt's current pneumonia
5. Continued ST as indicated
--- NOTE | 2024-07-11 13:57 | W.PN.ID1 ---
Addendum entered and electronically signed by Danielle Anaya MD 07/12/24 16:41:
I saw and evaluated the patient. I reviewed the resident�s note and agree with findings and plan as documented in the resident�s note. Please see my separately documented note for additions/correcitons
Original Note:
Date of Service
Date of Service: July 11, 2024
Today's Communication
Moxifloxacin 5-day, doxycycline 6-week course.
Monitor QT interval in the a.m. tomorrow.
Assessment / Plan
Assessment-
Mr. Alvarez, 83-year-old male with a past medical history complicated by recurrent UTIs, due to E. coli, squamous cell carcinoma of the lung, on Keytruda, recurrent hyper eosinophilia with recent completion of doxycycline course for 4 weeks for
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 coli, and bilateral hospital-acquired/aspiration pneumonia.
Subjective-cough, chest pain. No sputum production, no hemoptysis, no fevers, no rigors.
Objective-afebrile, vital signs stable, resolved leukocytosis from yesterday.
Plan-
Hospital-acquired/aspiration pneumonia-
Chest x-ray findings consistent with bilateral pneumonia.
Absolute eosinophil count-2.1 on 07/10, went up from 1.7. Elevated.
Swallow evaluation recommended regular diet and thin liquids. Also suggested video swallow evaluation to further assess oropharyngeal swallow function given recurrent pneumonias.
Patient ceftriaxone is discontinued the ceftriaxone and NSX can attribute to elevated eosinophil counts. Patient is switched to moxifloxacin, plan for 5-day course.
Recurrent prostatitis due to E. coli-
MRI of the pelvis evidence for prostrate abscess-1.8 x 1.3 x 1.1 cm.
Urology plans to wall of the abscess by TURP procedure. However patient need to await the Plavix washout.
Continue doxycycline 6-week course.
As patient is on moxifloxacin and doxycycline both of which can prolong QT interval monitor QT intervals in the a.m. tomorrow.
Chief Complaint
-: Other (prostatitis)
Subjective / Review of Systems
Patient complains of fatigue, excessive sleepiness, weakness, improving chest pain, dry cough.
Review of Systems: No Fever, No Chills, No Headache, Cough, No Sputum Production, Chest Pain, No Palpitations, No Abdominal Pain, No Nausea, No Vomiting, No Diarrhea, Dysuria, No Joint Pain and No Skin Rash
Vital Signs / Physical Exam
Vital Signs
Vital Signs
Temp Pulse Resp BP Pulse Ox
98.1 F 72 18 144/64 93
07/11/24 07:30 07/11/24 12:40 07/11/24 07:30 07/11/24 12:40 07/11/24 08:36
Physical Exam
Constitutional: Comfortable
Oropharyngeal: Negative Erythema, Exudate or Thrush
Cardiovascular: Regular Rate, S1/S2 and Murmur; Negative Rub or Gallop
Pulmonary: Clear (Bilateral wheezing noted.)
Gastrointestinal: Soft, Non Tender, Non Distended and Normal Bowel Sounds
Genito-Urinary: Negative Suprapubic Tenderness or CVA Tenderness
Extremities: Negative Edema
Skin: Warm
Neurological: Awake and Alert
Objective Data
Lab Data
Lab Results
07/11/24 05:07
07/11/24 05:07
Estimated Creat Clear 44 ml/min 07/11/24 05:07
Total Bilirubin 0.2 mg/dl (0.2-1.3) 07/07/24 08:18
AST 15 U/L (17-59) L 07/07/24 08:18
ALT < 10 U/L (0-50) 07/07/24 08:18
Alkaline Phosphatase 60 U/L (38-126) 07/07/24 08:18
Most recent labs reviewed.
Micro Results:
07/09/24 15:26 Influenza Types A & B (MARY) - Final
Nasal Swab Negative for Influenza A & B, NAAT
Negative results must be combined with clinical observations
and patient history.
Nucleic Acid Amplification test (NAAT)performed on the
[employer] platform.
07/02/24 13:56 Urine Culture - Final
Urine Escherichia coli
07/02/24 22:19 MRSA Screen - Final
Nose No Methicillin Resistant Staphylococcus aureus isolated.
Pelvis MRI-07/10/2024 -
1.8 x 1.3 x 1.1 cm peripherally enhancing, T2 hyperintense focus within the posterior lateral right peripheral zone in the mid/apical aspect of the gland which is most likely likely an abscess. This appears to correlate with the abnormality seen on
recent ultrasound. Mild BPH changes.
There are numerous diverticuli along the posterior aspect of the urinary bladder which measure up to 2.4 cm. There is additional prominent trabeculations of the urinary bladder. Findings are likely sequelae of chronic outlet obstruction.
Chest x-ray-07/09/2024-
Interval increase in reticulonodular more confluent areas of parenchymal opacity within both lungs greater on the left compared to the right appearance is highly suggestive of bilateral pneumonia.
Prostate ultrasound-07/05/2024-
1.4 cm focal hypoechoic lesion in the right mid peripheral zone of the prostate gland. Diagnostic possibilities include 1 abscess given the history of prostatitis 2 complex cyst [address]-07/03/2024-
Left upper lobe mass compatible with carcinoma. Since prior CT of November 26, 2023, evidence for interval increase of extension of the mass into the left side of the mediastinum.
Nodular parenchymal opacities within both lower lobes have increased compared to prior CT examination, morphologic appearance most suggestive of pneumonia.
Interval improvement in reticulonodular and ground glass opacities within both upper lungs, mainly within the upper lobes, suggesting improvement in pneumonia and/or lymphangitic spread of carcinoma.
Minimal bilateral posterior pleural effusions.
Chest x-ray-07/02/2024-
Again seen are diffusely increased interstitial opacities bilaterally with more confluent appearance within the left apical and basilar segments. No new areas of airspace disease. No pleural effusions or pneumothorax.
[2024-07-11] MEDS: FLUSH (NSS) 1 FLUSH IV (14:06)
[2024-07-11] MEDS: STERILE WATER FOR INJECTION 20 ML IV (14:06)
[2024-07-11] MEDS: ROCEPHIN 2000 MG IV (14:06)
--- NOTE | 2024-07-11 14:06 | W.PN.UPDATE ---
Update Note
Progress Note Update
I saw and evaluated the patient. I reviewed the resident�s note and agree with findings and plan as documented in the resident�s note with the following additions/corrections:
no events overnight
AEC continues to increase now 2.1
Relapsing Eosinophilia
- continue to follow CBC with diff
- switched ceftriaxone to moxifloxacin plan 5 day course
- follow eosinophilia - if persists/progresses may eventually need to reconsider causes/steroids - less likely prostatitis as currently on effective therapy, possibly due to cephalosporins, less likely amiodarone which he has been off of since last
admission, previously felt eosinophilia relapsing prior to restarting keytruda based on outpatient records
Suspected Aspiration Pneumonia
Leukocytosis, borderline fever
- CXR - progression of L lung infiltrates on my read - coughing and choaking
- consider swallow evaluation seems to have last been done 2014
- switched ceftriaxone to moxifloxacin
- procalcitonin not useful given CKD
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
- would plan for drainage of abscess if feasible, if not will treat medically for a very long course
- continue doxycycline currently plan 6 week course
AW
[2024-07-11 15:25] VITALS: BP 152/72
--- NOTE | 2024-07-11 16:10 | PTCARENOTE ---
Pt drowsy but arousable; oriented x3 when awake. CHUA weakly; in bed for shift. VSS. On nc 6 lpm- puls eox 92%, ot with (+) HUERTA/tachypnea; occ dry, non-productive cough. Abd soft, rounded, kelsey PO, appetite fair/ Incont urine. Resting in bed at
present, no c/o. Will continue to monitor.
[2024-07-11 16:58] VITALS: BP 154/80; PULSE 65; O2SAT 92
[2024-07-11 16:59] LABS: Glucose - Point of Care 99 mg/dl (70-99)
[2024-07-11] MEDS: AVELOX 400 MG PO (16:59)
[2024-07-11] MEDS: DUONEB 3 ML INH (20:17)
[2024-07-11] MEDS: PULMICORT 0.5 MG INH (20:17)
[2024-07-11 21:14] LABS: Glucose - Point of Care 136 mg/dl (70-99)
[2024-07-11] MEDS: LANTUS 0.1 UNITS SC (22:09)
[2024-07-11 23:44] VITALS: BP 147/68
[2024-07-12 05:45] VITALS: BMI 25.5
[2024-07-12] MEDS: PULMICORT 0.5 MG INH ×2 (07:19→20:10)
[2024-07-12] MEDS: DUONEB 3 ML INH ×2 (07:19→20:10)
[2024-07-12 07:35] LABS: Glucose - Point of Care 80 mg/dl (70-99)
[2024-07-12 07:36] VITALS: BP 120/55
[2024-07-12 07:39] VITALS: BP 120/55; BP 135/99; PULSE 73; PULSE 84
[2024-07-12 07:47] LABS: Hematocrit 30.1 % (39.0-52.0); Hemoglobin 9.8 g/dL (13.0-18.0); Mean Corp Hgb Conc. 32.6 g/dL (33.0-37.0); Mean Corpuscular Volume 89.1 fL (80.0-94.0); Mean Platelet Volume 8.9 fL (7.4-10.4); Platelet Count 328 10^3/uL (130-400); Red Blood Cell Count 3.38 10^6/uL (4.70-6.10); Red Cell Dist. Width 14.8 % (11.5-14.5); White Blood Cell Count 12.3 10^3/uL (4.8-10.8)
[2024-07-12 08:10] LABS: Blood Urea Nitrogen 36 mg/dl (9-20); Calcium 10.6 mg/dl (8.4-10.2); Carbon Dioxide 33 mmol/L (22-30); Chloride 98 mmol/L (98-107); Estimated Creatinine Clearance 44 ml/min; Glucose 88 mg/dl (70-99); Magnesium 2.1 mg/dl (1.6-2.3); Phosphorus 3.7 mg/dl (2.5-4.5); Potassium 4.5 mmol/L (3.5-5.1); Sodium 135 mmol/L (135-145); eGFR 50.18
--- NOTE | 2024-07-12 08:27 | PN.CDI ---
CDI
- -
CDI:
Physician Documentation Request
Admit Date: 07/02/24 16:26
Dear Doctor Pamela,
Please review the following and provide your response in the progress notes.
The purpose of this query is to ensure the accuracy of the conditions reported for your patient.
Clinical Indicators:
07/09/24 00:00 (created 07/09/24 01:40) - Patient Care Note
#At 20:45, pt complained of the chills with joint pain throughout his body and felt fatigue.
#Pt appeared to be flushed.
#...rectal temp of 100.3 and given Tylenol 650mg PO.
#At 23:55, RN reached temp of 98.4 orally.
07/11/24 16:10 - Patient Care Note
#On nc 6 lpm- puls eox 92%, ot with (+) HUERTA/tachypnea; occ dry, non-productive cough.
Luis Alfredo, consult, 07/11
#Impression:
#Sepsis without shock due to right-sided prostate abscess, UTI + pneumonia
#Suspected bilateral pneumonia vs post-obstructive MICHEAL PNA
#...in setting of bilateral lymphangitic carcinomatosis;
#...component of aspiration pneumonia is suspected
#Acute respiratory failure with hypoxia on supplemental oxygen due to above
Laboratory Tests
07/09/24 07/10/24 07/11/24
08:08 05:25 05:07
WBC 12.6 H 10.7 12.6 H
07/12/24
07:14
WBC 12.3 H
Recognized standard criteria for this condition and other associated definitions:
�Sepsis
-Systemic manifestations of infection, with 2 or more SIRS criteria which include:
-Fever > 100.4��F or hypothermia < 96.8��F
-Leukocytosis WBC > 12,000 or leukopenia, WBC < 4,000, or > 10% bands
-Tachycardia- > 90 beats/minute
-Tachypnea- RR > 20 breaths/minute or PaCO2 < 32mmHg
Source: Merck Manual 2013
-Documentation should include the known or suspected organism,
and the underlying infection, such as UTI or pneumonia
�Severe Sepsis
-Sepsis with associated acute organ dysfunction, such as renal or respiratory failure
-Documentation should indicate the association between the sepsis and the organ dysfunction
Based on the above information and the recognized standard SIRS criteria, please clarify if sepsis is still an accurate diagnosis, and reflective of the patient�s condition, to ensure quality of the medical record.
Please clarify in the Progress Note:
Sepsis evolved during admission
Severe Sepsis evolved during admission
- Sepsis with associated acute organ dysfunction, such as renal or respiratory failure
- Documentation should indicate the association between the sepsis
and the organ dysfunction
Localized Infection Only, Without Systemic Illness
- indicate the site/source, such as UTI, pneumonia etc.
Other(Please specify)
Use of terms such as suspected, likely, concern for, or probable (associated with a specific diagnosis that is being evaluated, monitored, or treated as if it exists) are acceptable and can be coded in the inpatient setting, when documented at the
time of discharge.
Thank you,
Cinthya Vance
CDI Specialist
Please use your independent medical judgment in providing your response.
[2024-07-12 08:40] LABS: Glucose - Point of Care 89 mg/dl (70-99)
[2024-07-12] MEDS: NOVOLOG FLEXPEN-LOW RESISTANCE SC ×2 (08:45→17:15)
[2024-07-12] MEDS: PROSCAR 5 MG PO (08:46)
[2024-07-12] MEDS: TYLENOL 650 MG PO ×3 (08:47→22:27)
[2024-07-12] MEDS: VISBIOME 1 CAP PO (08:47)
[2024-07-12] MEDS: ASPIR LOW (ENTERIC COATED) 81 MG PO (08:48)
[2024-07-12] MEDS: FLORASTOR 250 MG PO ×2 (08:48→20:39)
[2024-07-12] MEDS: ProAmatine 10 MG PO ×3 (08:48→17:06)
[2024-07-12] MEDS: VIBRAMYCIN 100 MG PO ×2 (08:48→20:39)
[2024-07-12 08:49] LABS: % Basophils 0.5 % (0-2); % Eosinophils 26.2 % (0-6); % Immature Granulocytes 0.9 % (0-0.5); % Lymphocytes 6.3 % (20.5-51.1); % Neutrophils 57.1 % (42.2-75.2); Absolute Basophils 0.1 10^3/uL (0-0.2); Absolute Eosinophils 3.2 10^3/uL (0-0.7); Absolute Immature Granulocytes 0.1 10^3/uL (0-0.05); Absolute Lymphocytes 0.8 10^3/uL (1.2-3.4); Absolute Monocytes 1.1 10^3/uL (0.1-0.6); Absolute Neutrophils 7.1 10^3/uL (1.4-6.5); Nucleated Red Blood Cells % 0 % (-)
[2024-07-12] MEDS: DESENEX/MITRAZOL/ZEASORB 1 APPLIC TOPICAL ×2 (08:49→20:40)
[2024-07-12] MEDS: FLORINEF 0.2 MG PO (08:49)
[2024-07-12] MEDS: COLACE 100 MG PO (08:49)
[2024-07-12] MEDS: CRESTOR 5 MG PO (08:49)
--- NOTE | 2024-07-12 09:06 | W.PN.ONC2 ---
Today's Communication / Plan
-
ID management of prostate abscess
Impression
Impression
Prostate Abscess
recurrent prostatitis
relapsed/recurrent lung cancer, currently on Keytruda. CT chest 07/03 concerning for local progression.
eosinophilia -predates IO
suspected aspiration PNA
AF on DOAC
Plan
Plan
Mgmt of prostate abscess per urology, ID. For IR drainage if possible
Further treatment of lung cancer TBD. Will likely obtain outpatient PET to assess status (done most recently at [facility] in March)
We will follow along
Subjective/Objective
Chief Complaint
6L NC
Subjective
afebrile, no hypotension
using tylenol
Vital Signs:
Vital Signs
Temp Pulse Resp BP Pulse Ox
97.5 F 79 18 119/53 90
07/12/24 07:36 07/12/24 08:48 07/12/24 07:36 07/12/24 08:48 07/12/24 07:36
Lab Results:
Laboratory Data
WBC 12.3 10^3/uL (4.8-10.8) H 07/12/24 07:14
Hgb 9.8 g/dL (13.0-18.0) L 07/12/24 07:14
Plt Count 328 10^3/uL (130-400) 07/12/24 07:14
eGFR 50.18 07/12/24 07:14
Physical Exam
General: No Apparent Distress and Conversant
HEENT: Moist Mucous Membranes; Negative Jaundice
Cardiology: Normal Sinus Rhythm
Pulmonary: Rales
GI: Soft
Extremities: No edema
Neurology: Non Focal, speech clear
Skin: Warm and Dry
Psych: Calm and Intact Judgement/Insight
Review of Systems
Review of Systems
ROS notable for subjective, otherwise negative
--- NOTE | 2024-07-12 09:25 | W.PN.HOSP.TC ---
Addendum entered and electronically signed by Danitza Santiago MD 07/12/24 11:24:
# Sepsis
Original Note:
Today's Communication/Plan
-
see A/P
Assessment / Plan
Assessment / Plan
A/P:
# generalized weakness/fall
very orthostatic despite midodrine 10 mg TID, Florinef added 07/05 by card and increased to 0.2 mg daily
Flomax and Ranexa stopped (both can cause hypotension)
cosyntropin STIM test without adrenal insufficiency
cont abdominal binder
PT/OT recc SNF
# acute hypoxemic respiratory failure likely from progression of lung cancer
Now on 6L NC (8L during sleep), wean O2 as tolerated, pt not on home O2
CXR with diffuse interstitial opacities,
CT chest with interval increase of extension of the mass into the left side of the mediastinum
# E. coli Urinary tract infection, likely due to prostatitis
ceftriaxone discontinued, changed to doxycycline with plan to continue 6 weeks
prostate US noted
ID on board
# prostate abscess
prostate US noted 1.4 cm focal hypoechoic lesion in the right mid peripheral zone of the prostate gland. Diagnostic possibilities are (1) an abscess given the history of prostatitis, (2) a complex cyst, or (3) adenocarcinoma.
pelvic MRI noted: 1.8 x 1.3 x 1.1 cm peripherally enhancing focus within the posterior lateral right peripheral zone in the mid/apical aspect of the gland which is most likely likely an abscess. This appears to correlate with the abnormality seen on
recent ultrasound.
IR consulted for aspiration, deemed not easily accessible hence would not proceed
Uro on board, planned for TURP Sunday 07/15 after Plavix/Eliquis washout
Plavix/Eliquis on hold, Card on board
Pulm on board for preop clearance
# Relapsing Eosinophilia
follow eosinophilia, possibly due to cephalosporins, less likely amiodarone which he has been off of since last admission, previously felt eosinophilia relapsing prior to restarting keytruda based on outpatient records
ceftriaxone was switched to moxifloxacin for 5 day course
# Cough, suspect Aspiration Pneumonia
CXR noted increase in parenchymal opacity within both lungs, greater on the left compared to the right. The appearance is highly suggestive of bilateral pneumonia.
switched ceftriaxone to moxifloxacin
# anemia of chronic disease
no evidence for bleeding
stable HGB
# increased peripheral eosinophilia, likely due to malignancy or Keytruda (although predates starting Keytruda per ID)
# CKD stage 3b
SCr today at 1.4, at baseline
# Type 2 DM
cover with sliding scale
Cont Lantus 10 u HS
# Lung cancer of left lobe, squamous cell carcinoma
Primary oncologist is Dr. Shin
s/p SBRT, completed carbo/taxol 04/17/2024, was on Keytruda
spoke with Dr. Shin, needs PET at [facility] where his other scans are
# Chronic diastolic congestive heart failure
hold torsemide
Off Ranexa due to orthostatic hypotension
# Paroxysmal AFib
# CAD s/p CABG KINCAID-LAD 04/2015. PCI LM and LCX 06/2015; 09/2022 post cath with patent KINCAID to LAD and stent and no new obstructive CAD
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
Eliquis 2.5 mg twice daily, Plavix 75 mg daily on hold
ASA added while off Eliquis and Plavix
apprec cards
# BPH
Off Flomax due to orthostatic hypotension
cont finasteride
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
# Hypercholesterolemia
Continue Crestor
DVT PPx: Eliquis 2.5 mg BID on hold
Code Status: Full code
DW RN
DW Uro
DW Card
total time spent 51 min
Anticipated Discharge: > 48 hours
Subjective/Interval History
-
Date of Service: July 12, 2024
Objective Data
-
Labs:
Laboratory Results
07/12/24
07:14
WBC 12.3 H
Hgb 9.8 L
Hct 30.1 L
Plt Count 328
Sodium 135
Potassium 4.5
Chloride 98
Carbon Dioxide 33 H
BUN 36 H
Creatinine 1.4 H
Glucose 88
Calcium 10.6 H
Vital Signs:
Vital Signs
Temp Pulse Resp BP Pulse Ox
36.4 C 79 18 119/53 90
07/12/24 07:36 07/12/24 08:48 07/12/24 07:36 07/12/24 08:48 07/12/24 07:36
I&O
07/11/24 07/12/24 07/13/24
06:59 06:59 06:59
Intake Total 1060 / 1060 1020 / 1020
Output Total 325 / 325 670 / 670
Balance 735 / 735 350 / 350
Review of Systems
-
All other systems: Reviewed and negative
Physical Exam
-
General: Well Developed, Well Nourished and Appears Chronically Ill
HEENT: Normocephalic, Atraumatic and Oxygen (6-8 L NC)
Respiratory: Clear to Auscultation and Non Labored Respirations; Negative Accessory Resp Muscle Use
Cardiac: Regular Rhythm and S1/S2; Negative Murmur
GI: Soft, Nontender, Nondistended and Normal Bowel Sounds
Musculoskeletal: No Clubbing, No Cyanosis and No Edema
Neuro: Awake
Psych: Calm and Intact Judgement/Insight
Data Reviewed
-
MRI: Report Reviewed by me, Discussed with Physician and Discussed with Patient
Labs: Labs Reviewed by me
--- NOTE | 2024-07-12 10:53 | PTCARENOTE ---
At 8:40 this AM. pt c/o CP, pt pulse o2 88% on 6L. increased the O2 to 8L. EKG, vitals and Accu checks done w/o any changes prior to. Dr. Santiago and Cards made aware. no new orders at this time. plan of care ongoing.
--- NOTE | 2024-07-12 10:57 | W.PN.ID1 ---
Addendum entered and electronically signed by Danielle Anaya MD 07/12/24 15:20:
I saw and evaluated the patient. I reviewed the resident�s note and agree with findings and plan as documented in the resident�s note.
QTc >500 on two EKGs
Would not continue moxifloxacin switched to ertapenem - plan 5 day course
follow eosinophilia - may eventually consider restarting steroids if not improving off of ceftriaxone
will also follow IgE level
continue doxycycline as planned
awaiting TURP
AW
Original Note:
Date of Service
Date of Service: July 12, 2024
Today's Communication
Monitor QT interval closely.
Switch to ertapenem.
Assessment / Plan
Assessment-
Mr. Alvarez, 83-year-old male with a past medical history complicated by recurrent UTIs, due to E. coli, squamous cell carcinoma of the lung, on Keytruda, recurrent hyper eosinophilia with recent completion of doxycycline course for 4 weeks for
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 coli, and bilateral hospital-acquired/aspiration pneumonia.
Subjective-cough, chest pain. No sputum production, no hemoptysis, no fevers, no rigors.
Objective-afebrile, vital signs stable, resolved leukocytosis from yesterday.
Plan-
Hospital-acquired/aspiration pneumonia-
Chest x-ray findings consistent with bilateral pneumonia.
Absolute eosinophil count-3.3 on 07/10, went up from 1.7. Elevated.
Swallow evaluation recommended regular diet and thin liquids. Also suggested video swallow evaluation to further assess oropharyngeal swallow function given recurrent pneumonias.
Patient ceftriaxone is discontinued the ceftriaxone and NSAIDS can attribute to elevated eosinophil counts. Patient is switched to moxifloxacin, plan for 5-day course.
Patient developed QT interval prolongation-QTc at 512 ms. Given his worsening eosinophilia, penicillins and cephalosporins are not an option. Also, Floroquinolones caused QTc prolongation. Hence switch patient to Ertapenem for 3 more days.
Recurrent prostatitis due to E. coli-
MRI of the pelvis evidence for prostrate abscess-1.8 x 1.3 x 1.1 cm.
Urology plans to wall of the abscess by TURP procedure. However patient need to await the Plavix washout.
Continue doxycycline 6-week course.
Chief Complaint
-: Other (prostatitis)
Subjective / Review of Systems
Patient is quite somnolent. Complains of cough, sputum production, weakness and fatigue. However denies dysuria.
Still has some chest pain and shortness of breath.
Review of Systems: No Fever, No Chills, No Headache, No Pharyngitis, No Stiff Neck, No Cough, No Sputum Production and No Palpitations
Vital Signs / Physical Exam
Vital Signs
Vital Signs
Temp Pulse Resp BP Pulse Ox
97.5 F 79 18 119/53 90
07/12/24 07:36 07/12/24 08:48 07/12/24 07:36 07/12/24 08:48 07/12/24 07:36
Physical Exam
Constitutional: Comfortable and Chronically Ill
Cardiovascular: Regular Rate and S1/S2; Negative Murmur, Rub or Gallop
Pulmonary: Clear; Negative Wheezes, Rales or Rhonchi
Gastrointestinal: Soft, Non Tender, Non Distended and Normal Bowel Sounds
Extremities: Negative Edema
Neurological: Awake and Alert; Negative Meningeal Signs
Psychological: Calm
Objective Data
Lab Data
Lab Results
07/12/24 07:14
07/12/24 07:14
Estimated Creat Clear 44 ml/min 07/12/24 07:14
Total Bilirubin 0.2 mg/dl (0.2-1.3) 07/07/24 08:18
AST 15 U/L (17-59) L 07/07/24 08:18
ALT < 10 U/L (0-50) 07/07/24 08:18
Alkaline Phosphatase 60 U/L (38-126) 07/07/24 08:18
Most recent labs reviewed.
Micro Results:
07/09/24 15:26 Influenza Types A & B (MARY) - Final
Nasal Swab Negative for Influenza A & B, NAAT
Negative results must be combined with clinical observations
and patient history.
Nucleic Acid Amplification test (NAAT)performed on the
[employer] platform.
07/02/24 13:56 Urine Culture - Final
Urine Escherichia coli
07/02/24 22:19 MRSA Screen - Final
Nose No Methicillin Resistant Staphylococcus aureus isolated.
Pelvis MRI-07/10/2024 -
1.8 x 1.3 x 1.1 cm peripherally enhancing, T2 hyperintense focus within the posterior lateral right peripheral zone in the mid/apical aspect of the gland which is most likely likely an abscess. This appears to correlate with the abnormality seen on
recent ultrasound. Mild BPH changes.
There are numerous diverticuli along the posterior aspect of the urinary bladder which measure up to 2.4 cm. There is additional prominent trabeculations of the urinary bladder. Findings are likely sequelae of chronic outlet obstruction.
Chest x-ray-07/09/2024-
Interval increase in reticulonodular more confluent areas of parenchymal opacity within both lungs greater on the left compared to the right appearance is highly suggestive of bilateral pneumonia.
Prostate ultrasound-07/05/2024-
1.4 cm focal hypoechoic lesion in the right mid peripheral zone of the prostate gland. Diagnostic possibilities include 1 abscess given the history of prostatitis 2 complex cyst [address]-07/03/2024-
Left upper lobe mass compatible with carcinoma. Since prior CT of November 26, 2023, evidence for interval increase of extension of the mass into the left side of the mediastinum.
Nodular parenchymal opacities within both lower lobes have increased compared to prior CT examination, morphologic appearance most suggestive of pneumonia.
Interval improvement in reticulonodular and ground glass opacities within both upper lungs, mainly within the upper lobes, suggesting improvement in pneumonia and/or lymphangitic spread of carcinoma.
Minimal bilateral posterior pleural effusions.
Chest x-ray-07/02/2024-
Again seen are diffusely increased interstitial opacities bilaterally with more confluent appearance within the left apical and basilar segments. No new areas of airspace disease. No pleural effusions or pneumothorax.
[2024-07-12 11:10] VITALS: BP 124/56; BP 128/77; PULSE 60; PULSE 72
[2024-07-12] MEDS: INVANZ 60 MG IV (12:33)
[2024-07-12 12:45] LABS: Glucose - Point of Care 200 mg/dl (70-99)
[2024-07-12] MEDS: NOVOLOG FLEXPEN-LOW RESISTANCE 2 UNITS SC (13:09)
[2024-07-12] MEDS: FLUSH (NSS) 1 FLUSH IV (13:12)
--- NOTE | 2024-07-12 14:41 | W.PN.PUL3 ---
Today's Communication / Plan
-
Continue oxygen for mentation
Continue antibiotics
Incentive spirometry
Eventual barium swallow
Okay to proceed with prostate surgery when able. Intermediate to high risk.
Continue modified diet with aspiration precautions.
Assessment
-
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 He was also hypoxic at the
[facility]. He was found to have a UTI and was admitted to the hospitalist service and started on antibiotics. ID consulted and a transrectal prostate ultrasound was performed on 07/05/2024 showing a 1.4 cm focal hypoechoic lesion in the right
mid peripheral zone of the prostate gland. Subsequent pelvic MRI on 07/10/2024 showed concern for a prostate abscess. Urology consulted and he is now awaiting either percutaneous drainage via IR versus surgery. He has remained on oxygen
throughout this hospital course with worsening O2 requirements since the evening of 07/09. Pulmonary service now consulted for preoperative stratification for prostate drainage of suspected abscess.
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
former tobacco smoker, hypertension, hyperlipidemia, DM type II, BPH, RBBB, PVD s/p vein stripping + fem bypass (2019), bilateral CEA, CKD, history of aortic aneurysm
Impression:
#Sepsis without shock due to right-sided prostate abscess, UTI + pneumonia
#Suspected bilateral pneumonia vs post-obstructive MICHEAL PNA in setting of bilateral lymphangitic carcinomatosis; component of aspiration pneumonia is suspected
#Mediastinal lymphadenopathy seen on CT chest from 07/03/2024, likely due to known MICHEAL lung cancer
#Recurrent UTI/bacterial prostatitis due to E. coli (R=cipro)
#Hx of MICHEAL NSCLC (SCC) with recurrence with Hx of SBRT (11/2022) and chemoimmunotherapy with keytra, carbo/taxol
#Acute respiratory failure with hypoxia on supplemental oxygen due to above
#Anemia (baseline Hb 8-10g/dL)
#Hypereosinophilic syndrome
#Hypochloremic, hyponatremia
#CKD (baseline Cr 1.3)
#DM type II c/b hyperglycemia (HbA1c: 8 on 07/03/2024)
#Hypoalbuminemia due to poor nutritional status
#Orthostatic hypotension
#COPD/emphysema not on inhalers as an outpatient
#Former tobacco smoker
Plan:
- CT chest from 07/03/2024 shows suspected local recurrence of known MICHEAL lung cancer with residual reticular nodular opacities, bilateral nodular opacities and bilateral upper lobe intralobular septal thickening with concern for lymphangitic
carcinomatosis; he also has small bilateral pleural effusions with differential including malignant effusion, acute decompensated heart failure vs parapneumonic.
Infectious disease is following - defer Abx to them to cover for aspiration pneumonia and prostatitis.
Diet has been modified. Barium swallow has been recommended speech evaluation noted.
Urology plans to wall of the abscess by TURP procedure. However patient need to await the Plavix washout.
-
He is intermediate�high risk for procedure from the pulmonary standpoint, especially if he receives general anesthesia given his septic state/worsening hypoxemia with multiple infections that we are treating
- Thankfully his ARISCAT score is low for postoperative pulmonary complications (1.6% risk of in-hospital post-op pulmonary complications (composite including respiratory failure, respiratory infection, pleural effusion, atelectasis, pneumothorax,
bronchospasm, aspiration pneumonitis)
May proceed if necessary.
-Orthostasis:
- Recent cosyntropin stimulation test showed no evidence of adrenal insufficiency
- Continue midodrine and florinef as well with holding paremeters
- Cardiology following, recs appreciated
-Diuresis on hold.
Lung cancer likely with recurrence. Currently on Keytruda. Continue to follow-up with oncology after discharge.
-Hypoxemia: Worsening due to progression of lung cancer and possible aspiration pneumonia.
Continue oxygen supplementation to maintain pulse ox above 90%. Patient does have oxygen supplementation at home.
-
Peripheral eosinophilia-unclear etiology. Unclear if this is medication related. Started since 2022.
- Check IgE level-pending
-Continue to monitor CBC.
No indication for systemic corticosteroids at this point.
History of COPD: Cannot rule out reactive airways component as well.
- In interim, continue DuoNebs BID with budesonide with prn nebulized bronchodilators for any breakthrough symptoms(while in the hospital)
- Incentive spirometer encouraged as tolerated
- DVT ppx: SCDs-patient on chronic anticoagulation as well as Eliquis.
Pulmonary service will continue to follow along. Ultimately, outpatient follow-up will be arranged with our office given last visit on 04/03/2024 with VJ Wild and Dr Melgar

Data:
Pelvis MRI w + w/o contrast 07/10/2024:
1.8 x 1.3 x 1.1 cm peripherally enhancing, T2 hyperintense focus within the posterior lateral right peripheral zone in the mid/apical aspect of the gland which is most likely likely an abscess. This appears to correlate with the abnormality seen on
recent ultrasound.
Mild BPH changes.
There are numerous diverticuli along the posterior aspect of the urinary bladder which measure up to 2.4 cm. There is additional prominent trabeculations of the urinary bladder. Findings are likely sequelae of chronic outlet obstruction.
[place] diverticulosis.
CT Chest w/o contrast 07/03/2024:
Left upper lobe mass compatible with carcinoma. Since prior CT of November 26, 2023, evidence for interval increase of extension of the mass into the left side of the mediastinum.
Nodular parenchymal opacities within both lower lobes have increased compared to prior CT examination, morphologic appearance most suggestive of pneumonia.
Interval improvement in reticulonodular and groundglass opacities within both upper lungs, mainly within the upper lobes, suggesting improvement in pneumonia and/or lymphangitic spread of carcinoma.
Minimal bilateral posterior pleural effusions.
Total time spent today was 77 minutes for this encounter. Time includes reviewing laboratory test/imaging results, reviewing pertinent medical records, obtaining and reviewing medical history, performing an appropriate exam, ordering medications,
tests and procedures. Time also includes documentation of this encounter, coordinating patient care and communicating with other healthcare professionals. Total time does not include separately billed tests performed on this date of service.
Subjective Data
-
Date of Service:
Date of Service: July 12, 2024
Chief Complaint: Pulmonary Follow Up
Subjective:
Remains on oxygen mentation
Continues to report exertional dyspnea
Denies hemoptysis
Denies chest pain
Review of Systems
General: Fever (n)
Cardiopulmonary: Dyspnea, Dyspnea on Exertion and Cough
GI: Abdominal Pain (n)
Objective Data
Data Reviewed
Vital Signs / I&O / Oxygen:
Vital Signs
Temp Pulse Resp BP Pulse Ox
98.1 F 71 19 107/58 90
07/12/24 11:00 07/12/24 12:33 07/12/24 11:00 07/12/24 12:33 07/12/24 07:36
Intake and Output
07/11/24 07/12/24 07/13/24
06:59 06:59 06:59
Intake Total 1060 / 1060 1020 / 1020
Output Total 325 / 325 670 / 670
Balance 735 / 735 350 / 350
SaO2 90
Nasal Cannula flow liters per 8
minute
Physical Exam
General: Comfortable
HEENT: Normocephalic
Cardiovascular: S1-S2
Respiratory: Crackles, Non-Labored Respirations and Accessory Resp Muscle Use
GI: Soft and Non Distended
Neurology: Awake, Alert and No Motor Deficits
Skin: Warm
Labs/Micro/Reports
Lab Data
07/12/24 07:14
07/12/24 07:14
Microbiology
07/09/24 15:26 Nasal Swab Influenza Types A & B (MARY) - Final
Negative for Influenza A & B, NAAT
Negative results must be combined with clinical observations
and patient history.
Nucleic Acid Amplification test (NAAT)performed on the
[employer] platform.
--- NOTE | 2024-07-12 14:42 | W.PN.CARDCBS ---
Addendum entered and electronically signed by Renato Blackburn MD 07/12/24 16:08:
I saw and examined the patient.
The Judicial Assistant's note was reviewed and I agree with the note.
Comment: Briefly, 83-year-old man past medical history of multivessel CAD, heart failure with preserved ejection fraction, paroxysmal atrial fibrillation on Eliquis, lung CA on chemo and orthostasis who presents again with hypoxia and CT findings
concerning for worsening lung cancer as well as possible pneumonia. He was again found to have urinary tract infection and now MRI is concerning for prostatic abscess.
Eliquis/Plavix currently on hold for possible intervention involving his prostate
Add aspirin 81 mg daily given history of coronary stents while Eliquis/Plavix is on hold
Cont high intensity statin
Volume status appears reasonable today, continue to hold diuretics
Cont midodrine/florinef for orthostasis
Intermittent chest discomfort which has been present now for least 6 weeks by his report
No ischemic changes on ECG
Troponin was not significantly elevated here
Suspect this may be related to underlying metastatic lung cancer
Unfortunately hypotension and orthostasis limit the use of antianginals
We are asked to comment on his surgical risk for TURP, due to his ischemic heart disease he would be at high risk
Explained this to the patient and he is in favor of proceeding based on our conversation today
Original Note:
Today's Communication / Plan
-
Chest pain is daily and usually several times a day, stable CAD by cath 09/2022, chest pain might be from lung cancer
Patient is high risk for surgery
Perhaps pulmonology should weigh in on surgical risk given need for 8 L NC at rest. Oncology following already
Impression / Plan
-
PCP: Dr. Villa
Media Traffic Manager: Dr. Blackburn
Impression:
Presented 07/02/2024 w/ weakness/fatigue/fall
Acute hypoxemic respiratory failure
UTI, prostate abscess by MRI 07/10/24
Chest pain, chronic
Chronic HFpEF
Elevated Troponin
Orthostatic hypotension
Paroxysmal atrial fibrillation
hypereosinophilia
abnormal CXR 05/25/24
Chronic Eliquis anticoagulation, off Amio due to eosinophilia
CAD
urgent CABGx1 KINCAID-LAD (VF/VT arrest) 04/2015
PCI LM and LCx 06/2015
s/p cath with patent KINCAID-LAD and stents, non new occlusive disease 10/22/22
currently managed with Plavix, Eliquis, Crestor, Ranexa (Ranexa stopped this admission due to hypotension)
Non-small cell lung cancer s/p radiation 11/2022 currently on Carbo/Taxol, Pembrolizumab
h/o VT/VF arrest in 2014 in the setting of left main stenosis
COPD/Emphysema
PVD - fem bypass and [employer] LCF 2016
CEA B/L 2018
AAA 3.2cm
CKD 3a
HTN
HLD
KIM
RBBB
DM2
Former smoker
Echo 10/22/2022�EF 65 to 70%.� Mild MR.� Aortic valve gradients 20/8 mmHg peak/mean consistent with mild aortic valve stenosis.� Trace TR with PA pressure 30 to 35 mmHg
Echo 11/28/2023: EF 50-55%, akinesis of the basal inferior wall, mild w/ peak/mean gradients 19/10 mmHg
Cardiac cath: 10/22/2022: stable CAD with prior left main to left circumflex stent patent, chronic total occlusion RCA, patent KINCAID to LAD, elevated LVEDP.
Plan:
-Patient is high risk for surgery. Recommend pulmonology opinion as well regarding surgical risk evaluation. Patient currently requiring 8 L NC at rest.
-Patient with chronic chest pain that happens 6 or more times a day most days. 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 Chest pain might be from lung cancer.
-IRAD cannot place drain and so plan now is for cystoscopy with transurethral resection/incision of prostate.
-Eliquis can be held and restarted when safe from a surgical standpoint.
-Started on aspirin 81 mg daily 07/11/24
-Orthostasis will hopefully improve with treatment of infection and might help explain why orthostasis has essentially been unresponsive to midodrine 10 mg TID and Florinef 0.2 mg daily
-Flomax and Ranexa stopped this admission without obvious improvement in orthostasis
-Cosyntropin stim test did not show adrenal insufficiency
-Remains in SR with h/o paroxysmal Afib. It would not be unexpected for AF to eventually recur at which point rhythm control versus rate control options can be further explored.
-Amiodarone previously stopped due to eosinophilia
-Troponin 0.038 on admission and will be managed as a nonischemic myocardial injury Troponin elevation
-No evidence of acute HF this admission. Patient was taking torsemide 10 mg daily PRN weight gain prior to admission. pro-BNP is lower compared to previous. No indication for IV diuresis
-EF 50-55% by echo 11/28/23
-Cannot take BB due to orthostasis
-Has had angioedema on ZACHARY inhibitors in the past.
Progress Note - Media Traffic Manager
Subjective
Date of Service: July 12, 2024
He has chest pain every day, usually many times a day and almost always at rest
Objective
Labs:
07/12/24 07:14
07/12/24 07:14
Labs
Hgb 9.8 g/dL (13.0-18.0) L 07/12/24 07:14
Hct 30.1 % (39.0-52.0) L 07/12/24 07:14
Plt Count 328 10^3/uL (130-400) 07/12/24 07:14
Sodium 135 mmol/L (135-145) 07/12/24 07:14
Potassium 4.5 mmol/L (3.5-5.1) 07/12/24 07:14
BUN 36 mg/dl (9-20) H 07/12/24 07:14
Creatinine 1.4 mg/dL (0.7-1.3) H 07/12/24 07:14
Glucose 88 mg/dl (70-99) 07/12/24 07:14
Vital Signs and I&O:
Vital Signs
Temp Pulse Resp BP Pulse Ox
98.1 F 71 19 107/58 90
07/12/24 11:00 07/12/24 12:33 07/12/24 11:00 07/12/24 12:33 07/12/24 07:36
Vital Signs
Temp Pulse Resp BP Pulse Ox
98.1 F 71 19 107/58 90
07/12/24 11:00 07/12/24 12:33 07/12/24 11:00 07/12/24 12:33 07/12/24 07:36
Intake & Output
07/10/24 07/11/24 07/12/24 07/13/24
06:59 06:59 06:59 06:59
Intake Total 1060 / 1060 1020 / 1020
Output Total 450 / 450 325 / 325 670 / 670
Balance -450 / -450 735 / 735 350 / 350
Physical Exam
Physical Exam
GEN: AAOx3
HEENT: mmm
LUNGS: Wearing oxygen at 8 L NC. No audible wheeze
CV: SR on tele
ABD: ND
EXT: No edema
NEURO: Gross non-focal
SKIN: No rash
[2024-07-12 15:15] VITALS: BP 147/71
--- NOTE | 2024-07-12 15:43 | W.PN.UPDATE ---
Update Note
Progress Note Update
MRI-confirmed prostatic abscess
H/o BPH with LUTS
H/o rUTIs
Antiplatelet/anticoagulation medication held tentatively for OR intervention.
Per IR, staff may not be available to perform percutaneous drainage of prostatic abscess.
On 6-8L of O2 currently.
Deemed high risk per Cardiology for surgical intervention.
- Tentative plan for OR Sun 07/15 (to allow blood thinner washout) for TUR prostatic abscess
- Tentative plan for spinal anesthesia (in lieu of general due to high risk status)
- Cardiology/Pulmonology clearance for surgical intervention
- GOC previously discussed w/ patient - wishes to proceed despite current clinical status, will re-evaluate in next 24-48 hrs
D/w Anesthesiologist.
D/w Hospitalist.
--- NOTE | 2024-07-12 16:16 | CM ---
PT OT indicate SNF need at dc.
Only [facility] is interested with bed.
Spoke with pt he said he will not go to a SNF unless it is 5 star.
Requested he offer more SNF to refer to.
On new oxygen increased to 8 liter Pox 92%.
Oncology involved.
PLAN To SNF when medically ready
[2024-07-12 16:57] LABS: Glucose - Point of Care 95 mg/dl (70-99)
[2024-07-12 21:27] LABS: Glucose - Point of Care 157 mg/dl (70-99)
[2024-07-12] MEDS: LANTUS 0.1 UNITS SC (22:26)
[2024-07-12 23:13] VITALS: BP 112/57
[2024-07-13] VITALS (7 sets, daily range): BP systolic 88–165; BP diastolic 46–70; PULSE 69–86; O2SAT 96; BMI 25.6
[2024-07-13 05:25] LABS: Hematocrit 28.8 % (39.0-52.0); Hemoglobin 9.2 g/dL (13.0-18.0); Mean Corp Hgb Conc. 31.9 g/dL (33.0-37.0); Mean Corpuscular Hgb 28.8 pg (27.0-31.0); Mean Corpuscular Volume 90.3 fL (80.0-94.0); Mean Platelet Volume 8.5 fL (7.4-10.4); Platelet Count 313 10^3/uL (130-400); Red Blood Cell Count 3.19 10^6/uL (4.70-6.10); Red Cell Dist. Width 14.7 % (11.5-14.5); White Blood Cell Count 11.9 10^3/uL (4.8-10.8)
[2024-07-13 05:44] LABS: Blood Urea Nitrogen 34 mg/dl (9-20); Calcium 10.7 mg/dl (8.4-10.2); Carbon Dioxide 32 mmol/L (22-30); Chloride 99 mmol/L (98-107); Estimated Creatinine Clearance 47 ml/min; Glucose 88 mg/dl (70-99); Magnesium 2.1 mg/dl (1.6-2.3); Potassium 4.5 mmol/L (3.5-5.1); Sodium 134 mmol/L (135-145); eGFR 54.85
[2024-07-13 07:03] LABS: Glucose - Point of Care 88 mg/dl (70-99)
--- NOTE | 2024-07-13 08:23 | W.PN.HOSP.TC ---
Addendum entered and electronically signed by Danitza Santiago MD 07/13/24 11:51:
I saw and evaluated the patient. I reviewed the resident�s note and agree with findings and plan as documented in the resident�s note.
Of note, patient underwent VSE today, could not tolerate due to unable to sit up properly.
Upon return, he complained of recurrent chest pain, and rapid response was called.
Chest pain resolved uneventfully. EKG unrevealing.
Patient has been having intermittent chest pain ongoing for several weeks. Cardiology already on board and seeing him for this .
Again discussed preop risk stratification with patient due to his underlying heart and lung conditions.
He is deemed high risk.
Patient however informed that he would still like to proceed with surgery, which is planned for Tuesday, given he has limited options.
Original Note:
Today's Communication/Plan
-
.
Assessment / Plan
Assessment / Plan
Assessment/Plan
#Acute hypoxemic respiratory failure likely from progression of lung cancer
-CT chest 07/03/2024 with interval increase of extension of the mass into the left side of the mediastinum
-Oncology following. Will likely obtain outpatient PET to assess status
-Per oncology, further treatment of lung cancer TBD
# Recurrent prostatitis due to E. coli infection
-Doxycycline for 6 weeks
-ID following
#Sepsis secondary to right-sided prostate abscess vs UTI vs Pneumonia
-prostate ultrasound 07/05/2024 noted 1.4 cm focal hypoechoic lesion in the right mid peripheral zone of the prostate gland.
-Pelvic MRI 07/10/2024 1.8 x 1.3 x 1.1 cm peripherally enhancing focus within the posterior lateral right peripheral zone in the mid/apical aspect of the gland which is most likely likely an abscess.
-IR was consulted for aspiration, they deemed not easily accessible and still not proceed
-Urology following. Plan for TURP on Sunday 07/15 after Plavix/Eliquis washout
-Pulmonary consulted for preoperative stratification for prostate drainage of suspected abscess- Okay to proceed with prostate surgery when able. Intermediate to high risk.
-Cardiology following, input appreciated. High risk for surgery due to ischemic heart disease
# Aspiration pneumonia suspected
-Chest x-ray 07/09/2024 increase in reticulonodular more confluent areas of parenchymal opacity within both lungs, greater on the left compared to the right. The appearance is highly suggestive of bilateral pneumonia.
-ID input appreciated,
-QTc>500, switching moxifloxacin to ertapenem
#generalized weakness/fall
#Orthostatic hypotension
-Continue midodrine/Florinef for orthostasis
-cont abdominal binder
-PT/OT recc SNF
-cosyntropin STIM test without adrenal insufficiency
-Flomax and Ranexa stopped without improvement in orthostasis
# Relapsing Eosinophilia
-follow eosinophilia, possibly due to cephalosporins, less likely amiodarone which he has been off of since last admission, previously felt eosinophilia relapsing prior to restarting keytruda based on outpatient records
-Continue ertapenem.
# anemia of chronic disease
-Stable hemoglobin with no evidence of bleeding
-Monitor hemoglobin level
# CKD stage 3b
SCr today at 1.3, at baseline
# Type 2 DM
cover with sliding scale
Cont Lantus 10 u HS
# Lung cancer of left lobe, squamous cell carcinoma
Primary oncologist is Dr. Shin
s/p SBRT, completed carbo/taxol 04/17/2024, was on Keytruda
spoke with Dr. Shin, needs PET at [facility] where his other scans are
# Chronic diastolic congestive heart failure
hold torsemide
Off Ranexa due to orthostatic hypotension
# Paroxysmal AFib
# CAD s/p CABG KINCAID-LAD 04/2015. PCI LM and LCX 06/2015; 09/2022 post cath with patent KINCAID to LAD and stent and no new obstructive CAD
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
Eliquis 2.5 mg twice daily, Plavix 75 mg daily , both medication on hold
ASA added while off Eliquis and Plavix.
apprec cards
# BPH
Off Flomax due to orthostatic hypotension
cont finasteride
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
# Hypercholesterolemia
Continue Crestor
Anticipated Discharge: > 48 hours
Subjective/Interval History
-
Patient seen and examined at bedside today. Currently on 6 L NC. Anxious and eager to discuss with colorectal surgery regarding surgical risks.
Objective Data
-
Labs:
Laboratory Results
07/13/24
04:51
WBC 11.9 H
Hgb 9.2 L
Hct 28.8 L
Plt Count 313
Sodium 134 L
Potassium 4.5
Chloride 99
Carbon Dioxide 32 H
BUN 34 H
Creatinine 1.3
Glucose 88
Calcium 10.7 H
Vital Signs:
Vital Signs
Temp Pulse Resp BP Pulse Ox
97.4 F 73 20 132/56 91
07/13/24 07:10 07/13/24 07:10 07/13/24 07:10 07/13/24 07:10 07/13/24 07:10
I&O
07/12/24 07/13/24 07/14/24
06:59 06:59 06:59
Intake Total 1020 / 1020 480 / 480
Output Total 670 / 670 745 / 745
Balance 350 / 350 -265 / -265
Review of Systems
-
All other systems: Reviewed and negative (Except as documented)
Physical Exam
-
General: Appears Chronically Ill
Respiratory: Crackles and Non Labored Respirations
Cardiac: S1/S2
GI: Soft, Nontender and Nondistended
Musculoskeletal: No Clubbing, No Cyanosis and No Edema
Neuro: Awake
[2024-07-13] MEDS: NOVOLOG FLEXPEN-LOW RESISTANCE SC ×3 (08:25→16:50)
[2024-07-13] MEDS: ProAmatine 10 MG PO ×3 (08:26→17:43)
[2024-07-13] MEDS: VIBRAMYCIN 100 MG PO ×2 (08:26→20:39)
[2024-07-13] MEDS: COLACE 100 MG PO (08:27)
[2024-07-13] MEDS: VISBIOME 1 CAP PO (08:27)
[2024-07-13] MEDS: FLORASTOR 250 MG PO ×2 (08:27→20:39)
[2024-07-13] MEDS: PROSCAR 5 MG PO (08:27)
[2024-07-13] MEDS: TYLENOL 650 MG PO ×3 (08:27→22:20)
[2024-07-13] MEDS: ASPIR LOW (ENTERIC COATED) 81 MG PO (08:27)
[2024-07-13] MEDS: DESENEX/MITRAZOL/ZEASORB 1 APPLIC TOPICAL ×2 (08:27→20:40)
[2024-07-13] MEDS: CRESTOR 5 MG PO (08:27)
[2024-07-13] MEDS: FLORINEF 0.2 MG PO (08:27)
[2024-07-13 08:31] LABS: % Basophils 0.5 % (0-2); % Lymphocytes 8.6 % (20.5-51.1); % Monocytes 8.1 % (1.7-9.3); % Neutrophils 50.8 % (42.2-75.2); Absolute Basophils 0.1 10^3/uL (0-0.2); Absolute Eosinophils 3.7 10^3/uL (0-0.7); Absolute Immature Granulocytes 0.1 10^3/uL (0-0.05); Absolute Neutrophils 6.1 10^3/uL (1.4-6.5); Nucleated Red Blood Cells % 0 % (-)
[2024-07-13] MEDS: PULMICORT 0.5 MG INH ×2 (08:38→19:38)
[2024-07-13] MEDS: DUONEB 3 ML INH ×2 (08:38→19:38)
[2024-07-13 10:07] LABS: Albumin 2.2 g/dl (3.5-5.0); Total Protein 5.7 g/dl (6.3-8.2)
--- NOTE | 2024-07-13 10:07 | W.PN.CARDCBS ---
Addendum entered and electronically signed by Carter Abrams DO 07/13/24 17:36:
I saw and examined the patient.
The Medical Communication Specialist's note was reviewed and I agree with the note.
Comment:
As previously mentioned, patient is a 83-year-old man past medical history of multivessel CAD, heart failure with preserved ejection fraction, paroxysmal atrial fibrillation on Eliquis, lung CA on chemo and orthostasis who presents again with
hypoxia and CT findings concerning for worsening lung cancer as well as possible pneumonia. He was again found to have urinary tract infection and now MRI is concerning for prostatic abscess.
Eliquis/Plavix currently on hold for possible intervention involving his prostate; continue aspirin 81 mg daily given history of coronary stents while Eliquis/Plavix is on hold
Cont high intensity statin
Volume status remains stable, continue to hold diuretics
Cont midodrine/florinef for orthostasis
Intermittent chest discomfort which has been present now for least 6 weeks by his report
No ischemic changes on ECG
Troponin was not significantly elevated here
Suspect this may be related to underlying metastatic lung cancer
Unfortunately hypotension and orthostasis limit the use of antianginals
Patient remains at high risk from CV standpoint for procedure. Patient tentatively scheduled for TURP on 07/15/2024.
Monitor on telemetry
Medical therapy adjusted as noted above
Original Note:
Today's Communication / Plan
-
Planned for TURP 07/15. High risk.
Continue midodrine and Florinef
Impression / Plan
-
PCP: Dr. Villa
General Hardware Salesperson: Dr. Blackburn
Impression:
Presented 07/02/2024 w/ weakness/fatigue/fall
Acute hypoxemic respiratory failure
UTI, prostate abscess by MRI 07/10/24
Chest pain, chronic
Chronic HFpEF
Elevated Troponin
Orthostatic hypotension
Paroxysmal atrial fibrillation
hypereosinophilia
abnormal CXR 05/25/24
Chronic Eliquis anticoagulation, off Amio due to eosinophilia
CAD
urgent CABGx1 KINCAID-LAD (VF/VT arrest) 04/2015
PCI LM and LCx 06/2015
s/p cath with patent KINCAID-LAD and stents, non new occlusive disease 10/22/22
currently managed with Plavix, Eliquis, Crestor, Ranexa (Ranexa stopped this admission due to hypotension)
Non-small cell lung cancer s/p radiation 11/2022 currently on Carbo/Taxol, Pembrolizumab
h/o VT/VF arrest in 2014 in the setting of left main stenosis
COPD/Emphysema
PVD - fem bypass and NUTRITIONALIST LCF 2016
CEA B/L 2018
AAA 3.2cm
CKD 3a
HTN
HLD
KIM
RBBB
DM2
Former smoker
Echo 10/22/2022�EF 65 to 70%.� Mild MR.� Aortic valve gradients 20/8 mmHg peak/mean consistent with mild aortic valve stenosis.� Trace TR with PA pressure 30 to 35 mmHg
Echo 11/28/2023: EF 50-55%, akinesis of the basal inferior wall, mild w/ peak/mean gradients 19/10 mmHg
Cardiac cath: 10/22/2022: stable CAD with prior left main to left circumflex stent patent, chronic total occlusion RCA, patent KINCAID to LAD, elevated LVEDP.
Plan:
-Presented with weakness, fatigue, and UTI. Found to have prostate abscess by MRI 07/10. Plan is for cystoscopy with transurethral resection/incision of prostate 07/15.
-He is high risk for surgery. Patient aware and wishes to proceed per urology note.
-Eliquis and plavix on hold pre-op. Continue aspirin 81mg daily while plavix and Eliquis on hold. Resume Eliquis once safe post-procedurally.
-He has chronic chest pain, may be from lung cancer. cath 09/2023 with stable CAD as noted above.
-Continues w/ significant orthostasis despite midodrine 10mg TID and florinef 0.2 mg daily. Hopefully orthostasis will improve w/ treatment of infection.
-Flomax and Ranexa stopped this admission without obvious improvement in orthostasis
-Cosyntropin stim test did not show adrenal insufficiency
-Know h/o paroxysmal Afib. Amiodarone previously stopped due to eosinophilia
-No evidence of acute HF this admission. Patient was taking torsemide 10 mg daily PRN weight gain prior to admission. pro-BNP is lower compared to previous.
-Cannot take BB due to orthostasis, has had angioedema on ZACHARY inhibitors in the past.
Progress Note - General Hardware Salesperson
Subjective
Date of Service: July 13, 2024
Overall feeling well today. Does still have dizziness w/ position change.
Objective
Labs:
07/13/24 04:51
07/13/24 04:51
Labs
Hgb 9.2 g/dL (13.0-18.0) L 07/13/24 04:51
Hct 28.8 % (39.0-52.0) L 07/13/24 04:51
Plt Count 313 10^3/uL (130-400) 07/13/24 04:51
Sodium 134 mmol/L (135-145) L 07/13/24 04:51
Potassium 4.5 mmol/L (3.5-5.1) 07/13/24 04:51
BUN 34 mg/dl (9-20) H 07/13/24 04:51
Creatinine 1.3 mg/dL (0.7-1.3) 07/13/24 04:51
Glucose 88 mg/dl (70-99) 07/13/24 04:51
Vital Signs and I&O:
Vital Signs
Temp Pulse Resp BP Pulse Ox
97.4 F 73 18 132/56 83
07/13/24 07:10 07/13/24 08:26 07/13/24 08:43 07/13/24 08:26 07/13/24 08:43
Vital Signs
Temp Pulse Resp BP Pulse Ox
97.4 F 73 18 132/56 83
07/13/24 07:10 07/13/24 08:26 07/13/24 08:43 07/13/24 08:26 07/13/24 08:43
Intake & Output
07/11/24 07/12/24 07/13/24 07/14/24
06:59 06:59 06:59 06:59
Intake Total 1060 / 1060 1020 / 1020 480 / 480
Output Total 325 / 325 670 / 670 745 / 745
Balance 735 / 735 350 / 350 -265 / -265
Physical Exam
Physical Exam
GEN: AAOx3
HEENT: mmm
LUNGS: Wearing oxygen at 8 L NC. No audible wheeze
CV: Reg, S1/S2, 1/6 syst murmur
EXT: No clubbing, cyanosis, or edema
NEURO: Gross non-focal
SKIN: Warm, dry, no rash
[2024-07-13 11:30] LABS: Glucose - Point of Care 111 mg/dl (70-99)
--- NOTE | 2024-07-13 11:35 | PTCARENOTE ---
Pt returned to room from X-ray s/p VSE attempt; pt unable to complete- unable to sit up straight d/t orthostasis; pt c/o CP. APARTMENT GROUNDSKEEPER called by X-ray dept.. Pt now resting in bed, no c/o. VSS. On nc 6 lpm- pulseox 92%, Accucheck BS 111. EKG done.
Will continue to monitor.
[2024-07-13] MEDS: FLUSH (NSS) 1 FLUSH IV (12:28)
[2024-07-13] MEDS: INVANZ 60 MG IV (12:28)
--- NOTE | 2024-07-13 13:52 | W.PN.PUL3 ---
Today's Communication / Plan
-
Continue antibiotics
Continue nebulizers
Oxygen supplementation to maintain pulse ox above 90%-currently on 7-8 mm
For TURP procedure Tuesday. The prostate abscess
Will follow
Assessment
-
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 He was also hypoxic at the
long-term. He was found to have a UTI and was admitted to the hospitalist service and started on antibiotics. ID consulted and a transrectal prostate ultrasound was performed on 07/05/2024 showing a 1.4 cm focal hypoechoic lesion in the right
mid peripheral zone of the prostate gland. Subsequent pelvic MRI on 07/10/2024 showed concern for a prostate abscess. Urology consulted and he is now awaiting either percutaneous drainage via IR versus surgery. He has remained on oxygen
throughout this hospital course with worsening O2 requirements since the evening of 07/09. Pulmonary service now consulted for preoperative stratification for prostate drainage of suspected abscess.
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
former tobacco smoker, hypertension, hyperlipidemia, DM type II, BPH, RBBB, PVD s/p vein stripping + fem bypass (2019), bilateral CEA, CKD, history of aortic aneurysm
Impression:
#Sepsis without shock due to right-sided prostate abscess, UTI + pneumonia
#Suspected bilateral pneumonia vs post-obstructive MICHEAL PNA in setting of bilateral lymphangitic carcinomatosis; component of aspiration pneumonia is suspected
#Mediastinal lymphadenopathy seen on CT chest from 07/03/2024, likely due to known MICHEAL lung cancer
#Recurrent UTI/bacterial prostatitis due to E. coli (R=cipro)
#Hx of MICHEAL NSCLC (SCC) with recurrence with Hx of SBRT (11/2022) and chemoimmunotherapy with keytra, carbo/taxol
#Acute respiratory failure with hypoxia on supplemental oxygen due to above
#Anemia (baseline Hb 8-10g/dL)
#Hypereosinophilic syndrome
#Hypochloremic, hyponatremia
#CKD (baseline Cr 1.3)
#DM type II c/b hyperglycemia (HbA1c: 8 on 07/03/2024)
#Hypoalbuminemia due to poor nutritional status
#Orthostatic hypotension
#COPD/emphysema not on inhalers as an outpatient
#Former tobacco smoker
Plan:
-
Acute on chronic hypoxemic respiratory failure-Increased oxygen requirements during this admission due to pneumonia/progressive lung cancer with possible lymphangitic spread.
- CT chest from 07/03/2024 shows suspected local recurrence of known MICHEAL lung cancer with residual reticular nodular opacities, bilateral nodular opacities and bilateral upper lobe intralobular septal thickening with concern for lymphangitic
carcinomatosis; he also has small bilateral pleural effusions with differential including malignant effusion, acute decompensated heart failure vs parapneumonic.
Infectious disease is following - defer Abx to them to cover for aspiration pneumonia and prostatitis.
Diet has been modified. Barium swallow has been recommended speech evaluation noted.
Urology plans to wall of the abscess by TURP procedure. However patient need to await the Plavix washout. Procedure scheduled for Tuesday.
-
Laboratory assessment:
He is intermediate�high risk for procedure from the pulmonary standpoint, especially if he receives general anesthesia given his septic state/worsening hypoxemia with multiple infections that we are treating
- Thankfully his ARISCAT score is low for postoperative pulmonary complications (1.6% risk of in-hospital post-op pulmonary complications (composite including respiratory failure, respiratory infection, pleural effusion, atelectasis, pneumothorax,
bronchospasm, aspiration pneumonitis)
May proceed if necessary.
-Orthostasis:
- Recent cosyntropin stimulation test showed no evidence of adrenal insufficiency
- Continue midodrine and florinef as well with holding paremeters
- Cardiology following, recs appreciated
- The further diuresis to primary team and cardiology.
Lung cancer likely with recurrence. Currently on Keytruda. Continue to follow-up with oncology after discharge.
-Hypoxemia: Worsening due to progression of lung cancer and possible aspiration pneumonia. Currently on 7-8 L. Not in distress at rest.
Continue oxygen supplementation to maintain pulse ox above 90%. Patient does have oxygen supplementation at home.
Incentive spirometry
-
Peripheral eosinophilia-unclear etiology. Unclear if this is medication related. Started since 2022. possibly medication driven.
- Check IgE level-pending
-Continue to monitor CBC.
No indication for systemic corticosteroids at this point.
History of COPD: Cannot rule out reactive airways component as well. not bronchospastic on exam 07/13/2024.
- Continue DuoNebs BID with budesonide with prn nebulized bronchodilators for any breakthrough symptoms(while in the hospital)
- Incentive spirometer encouraged as tolerated
- DVT ppx: SCDs-patient on chronic anticoagulation as well as Eliquis.
Pulmonary service will continue to follow along. Ultimately, outpatient follow-up will be arranged with our office given last visit on 04/03/2024 with VJ Wild and Dr Melgar

Data:
Pelvis MRI w + w/o contrast 07/10/2024:
1.8 x 1.3 x 1.1 cm peripherally enhancing, T2 hyperintense focus within the posterior lateral right peripheral zone in the mid/apical aspect of the gland which is most likely likely an abscess. This appears to correlate with the abnormality seen on
recent ultrasound.
Mild BPH changes.
There are numerous diverticuli along the posterior aspect of the urinary bladder which measure up to 2.4 cm. There is additional prominent trabeculations of the urinary bladder. Findings are likely sequelae of chronic outlet obstruction.
[place] diverticulosis.
CT Chest w/o contrast 07/03/2024:
Left upper lobe mass compatible with carcinoma. Since prior CT of November 26, 2023, evidence for interval increase of extension of the mass into the left side of the mediastinum.
Nodular parenchymal opacities within both lower lobes have increased compared to prior CT examination, morphologic appearance most suggestive of pneumonia.
Interval improvement in reticulonodular and groundglass opacities within both upper lungs, mainly within the upper lobes, suggesting improvement in pneumonia and/or lymphangitic spread of carcinoma.
Minimal bilateral posterior pleural effusions.
Total time spent today was 77 minutes for this encounter. Time includes reviewing laboratory test/imaging results, reviewing pertinent medical records, obtaining and reviewing medical history, performing an appropriate exam, ordering medications,
tests and procedures. Time also includes documentation of this encounter, coordinating patient care and communicating with other healthcare professionals. Total time does not include separately billed tests performed on this date of service.
Subjective Data
-
Date of Service:
Date of Service: July 13, 2024
Chief Complaint: Pulmonary Follow Up
Subjective:
continues to report poor appetite.
Denies hemoptysis for significant phlegm production.
Denies any chest pain
Denies abdominal pain
Review of Systems
General: Fever (n)
Cardiopulmonary: Dyspnea (none at rest)
GI: Abdominal Pain (n) and Nausea (n)
Objective Data
Data Reviewed
Vital Signs / I&O / Oxygen:
Vital Signs
Temp Pulse Resp BP Pulse Ox
97.4 F 79 18 103/54 83
07/13/24 07:10 07/13/24 12:28 07/13/24 08:43 07/13/24 12:28 07/13/24 08:43
Intake and Output
07/12/24 07/13/24 07/14/24
06:59 06:59 06:59
Intake Total 1020 / 1020 480 / 480
Output Total 670 / 670 745 / 745
Balance 350 / 350 -265 / -265
SaO2 83
Nasal Cannula flow liters per 6
minute
Physical Exam
General: Comfortable
HEENT: Normocephalic
Cardiovascular: S1-S2
Respiratory: Crackles, Non-Labored Respirations and Accessory Resp Muscle Use
GI: Soft and Non Distended
Neurology: Awake, Alert and No Motor Deficits
Skin: Warm
Labs/Micro/Reports
Lab Data
07/13/24 04:51
07/13/24 04:51
--- NOTE | 2024-07-13 15:12 | W.PN.ID1 ---
Addendum entered and electronically signed by Danielle Anaya MD 07/13/24 19:06:
I saw and evaluated the patient. I reviewed the resident�s note and agree with findings and plan as documented in the resident�s note.
Eosinophilia progressing off of cephalosporin
continues to complain of chest pain - ordered troponins to assess for possible pericarditis with eosinophilia; minimally elevated, EKG unchanged
may consider steroids if further progression of eos over the next few days
IgE still pending
continue doxycycline
awaiting TURP
AW
Original Note:
Date of Service
Date of Service: July 13, 2024
Today's Communication
Continue patient on ertapenem and doxycycline.
ertapenem day 2
can discontinue ertapenem after day 3- tomorrow.
Assessment / Plan
Assessment-
Mr. Alvarez, 83-year-old male with a past medical history complicated by recurrent UTIs, due to E. coli, squamous cell carcinoma of the lung, on Keytruda, recurrent hyper eosinophilia with recent completion of doxycycline course for 4 weeks for
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 coli, and bilateral hospital-acquired/aspiration pneumonia.
Subjective-cough, chest pain. No sputum production, no hemoptysis, no fevers, no rigors.
Objective-afebrile, vital signs stable, resolved leukocytosis from yesterday.
Plan-
Hospital-acquired/aspiration pneumonia-
Chest x-ray findings consistent with bilateral pneumonia.
Absolute eosinophil count-3.3 on 07/10, went up from 1.7. Elevated.
Swallow evaluation recommended regular diet and thin liquids. Also suggested video swallow evaluation to further assess oropharyngeal swallow function given recurrent pneumonias.
Patient ceftriaxone is discontinued the ceftriaxone and NSAIDS can attribute to elevated eosinophil counts. Patient is switched to moxifloxacin, plan for 5-day course.
Patient developed QT interval prolongation-QTc at 512 ms. Given his worsening eosinophilia, penicillins and cephalosporins are not an option. Also, Floroquinolones caused QTc prolongation. Hence switch patient to Ertapenem for 3 more days.
Recurrent prostatitis due to E. coli-
MRI of the pelvis evidence for prostrate abscess-1.8 x 1.3 x 1.1 cm.
Urology plans to wall of the abscess by TURP procedure. Procedure planned under spinal anesthesia on Tuesday-07/15. However patient need to await the Plavix washout.
Continue doxycycline 6-week course.
Chief Complaint
-: Other (prostatitis)
Subjective / Review of Systems
When I saw patient in the morning around 8 AM patient was complaining of cough and mild chest pain. However he had an episode of severe chest pain, and rapid response team was called and on the patient in afternoon.
Review of Systems: No Fever, No Chills, No Headache, No Pharyngitis, No Stiff Neck, Cough, Sputum Production, Chest Pain, No Palpitations, No Abdominal Pain, No Nausea, No Vomiting, No Diarrhea and No Dysuria
Vital Signs / Physical Exam
Vital Signs
Vital Signs
Temp Pulse Resp BP Pulse Ox
98.1 F 74 18 146/66 93
07/13/24 15:01 07/13/24 15:01 07/13/24 15:01 07/13/24 15:01 07/13/24 15:01
Physical Exam
Constitutional: Comfortable and Chronically Ill
Cardiovascular: Regular Rate and S1/S2; Negative Murmur, Rub or Gallop
Pulmonary: Clear and Rales (Bilateral crackles in lower lobes.); Negative Wheezes or Rhonchi
Gastrointestinal: Soft, Non Tender, Non Distended and Normal Bowel Sounds
Genito-Urinary: Negative Suprapubic Tenderness
Extremities: Negative Edema
Neurological: Awake
Psychological: Calm
Objective Data
Lab Data
Lab Results
07/13/24 04:51
07/13/24 04:51
Estimated Creat Clear 47 ml/min 07/13/24 04:51
Total Bilirubin 0.2 mg/dl (0.2-1.3) 07/07/24 08:18
AST 15 U/L (17-59) L 07/07/24 08:18
ALT < 10 U/L (0-50) 07/07/24 08:18
Alkaline Phosphatase 60 U/L (38-126) 07/07/24 08:18
Most recent labs reviewed.
Micro Results:
07/09/24 15:26 Influenza Types A & B (MARY) - Final
Nasal Swab Negative for Influenza A & B, NAAT
Negative results must be combined with clinical observations
and patient history.
Nucleic Acid Amplification test (NAAT)performed on the
XMPie platform.
07/02/24 13:56 Urine Culture - Final
Urine Escherichia coli
07/02/24 22:19 MRSA Screen - Final
Nose No Methicillin Resistant Staphylococcus aureus isolated.
Pelvis MRI-07/10/2024 -
1.8 x 1.3 x 1.1 cm peripherally enhancing, T2 hyperintense focus within the posterior lateral right peripheral zone in the mid/apical aspect of the gland which is most likely likely an abscess. This appears to correlate with the abnormality seen on
recent ultrasound. Mild BPH changes.
There are numerous diverticuli along the posterior aspect of the urinary bladder which measure up to 2.4 cm. There is additional prominent trabeculations of the urinary bladder. Findings are likely sequelae of chronic outlet obstruction.
Chest x-ray-07/09/2024-
Interval increase in reticulonodular more confluent areas of parenchymal opacity within both lungs greater on the left compared to the right appearance is highly suggestive of bilateral pneumonia.
Prostate ultrasound-07/05/2024-
1.4 cm focal hypoechoic lesion in the right mid peripheral zone of the prostate gland. Diagnostic possibilities include 1 abscess given the history of prostatitis 2 complex cyst [address]-07/03/2024-
Left upper lobe mass compatible with carcinoma. Since prior CT of November 26, 2023, evidence for interval increase of extension of the mass into the left side of the mediastinum.
Nodular parenchymal opacities within both lower lobes have increased compared to prior CT examination, morphologic appearance most suggestive of pneumonia.
Interval improvement in reticulonodular and ground glass opacities within both upper lungs, mainly within the upper lobes, suggesting improvement in pneumonia and/or lymphangitic spread of carcinoma.
Minimal bilateral posterior pleural effusions.
Chest x-ray-07/02/2024-
Again seen are diffusely increased interstitial opacities bilaterally with more confluent appearance within the left apical and basilar segments. No new areas of airspace disease. No pleural effusions or pneumothorax.
--- NOTE | 2024-07-13 15:45 | CM ---
PT OT indicate SNF need at dc.
Only [facility] is interested with bed.
Spoke with pt he said he will not go to a SNF unless it is 5 star.
Pt given [facility] data to pick additional SNF.
On new oxygen increased to 6 liter Pox 93%.
Oncology involved.
PLAN To SNF when medically ready
--- NOTE | 2024-07-13 16:03 | PTCARENOTE ---
Pt drowsy but arousable; oriented x 3 when awake. CHUA; able to turns self in bed. VSS. Pt still c/o dizziness @ times with HOB elevation. On nc 6 lpm- pulse ox 93%, pt with (+) HUERTA/tachypnea; occ loose, non-productive cough. Abd large, soft, kelsey
PO; appetite fair. Incont small BM x1. Voids small amts in urinal/incont at times. Resting in bed at present. Will continue to monitor.
[2024-07-13 16:23] LABS: Troponin I 0.036 ng/ml
[2024-07-13 16:47] LABS: Glucose - Point of Care 103 mg/dl (70-99)
[2024-07-13 21:32] LABS: Glucose - Point of Care 123 mg/dl (70-99)
[2024-07-13] MEDS: LANTUS 0.1 UNITS SC (22:20)
[2024-07-14 04:59] VITALS: BMI 25.2
[2024-07-14 06:55] LABS: Blood Urea Nitrogen 32 mg/dl (9-20); Calcium 10.8 mg/dl (8.4-10.2); Carbon Dioxide 32 mmol/L (22-30); Chloride 99 mmol/L (98-107); Estimated Creatinine Clearance 47 ml/min; Glucose 89 mg/dl (70-99); Magnesium 2.1 mg/dl (1.6-2.3); Potassium 4.4 mmol/L (3.5-5.1); Sodium 133 mmol/L (135-145); eGFR 54.85
[2024-07-14 06:59] LABS: Hemoglobin 9.3 g/dL (13.0-18.0); Mean Corp Hgb Conc. 32.1 g/dL (33.0-37.0); Mean Corpuscular Hgb 28.7 pg (27.0-31.0); Mean Corpuscular Volume 89.5 fL (80.0-94.0); Mean Platelet Volume 8.5 fL (7.4-10.4); Platelet Count 283 10^3/uL (130-400); Red Blood Cell Count 3.24 10^6/uL (4.70-6.10); White Blood Cell Count 15.4 10^3/uL (4.8-10.8)
[2024-07-14] MEDS: PULMICORT 0.5 MG INH ×2 (07:19→18:26)
[2024-07-14] MEDS: DUONEB 3 ML INH ×2 (07:19→18:26)
[2024-07-14 07:21] LABS: Troponin I 0.039 ng/ml
[2024-07-14 07:48] LABS: % Basophils 0.3 % (0-2); % Eosinophils 26.5 % (0-6); % Immature Granulocytes 0.8 % (0-0.5); % Lymphocytes 5.9 % (20.5-51.1); % Monocytes 7.4 % (1.7-9.3); % Neutrophils 59.1 % (42.2-75.2); Absolute Basophils 0.1 10^3/uL (0-0.2); Absolute Eosinophils 4.1 10^3/uL (0-0.7); Absolute Immature Granulocytes 0.1 10^3/uL (0-0.05); Absolute Lymphocytes 0.9 10^3/uL (1.2-3.4); Absolute Monocytes 1.1 10^3/uL (0.1-0.6); Absolute Neutrophils 9.1 10^3/uL (1.4-6.5); Nucleated Red Blood Cells % 0 % (-)
[2024-07-14 08:13] VITALS: BP 145/68
[2024-07-14 08:34] LABS: Glucose - Point of Care 93 mg/dl (70-99)
[2024-07-14] MEDS: NOVOLOG FLEXPEN-LOW RESISTANCE SC ×3 (08:57→17:04)
[2024-07-14] MEDS: VIBRAMYCIN 100 MG PO ×2 (08:58→20:42)
[2024-07-14] MEDS: FLORASTOR 250 MG PO ×2 (08:58→20:42)
[2024-07-14] MEDS: FLORINEF 0.2 MG PO (08:59)
[2024-07-14] MEDS: ProAmatine 10 MG PO ×3 (08:59→16:59)
[2024-07-14] MEDS: PROSCAR 5 MG PO (08:59)
[2024-07-14] MEDS: TYLENOL 650 MG PO ×3 (08:59→21:01)
[2024-07-14] MEDS: ASPIR LOW (ENTERIC COATED) 81 MG PO (08:59)
[2024-07-14] MEDS: COLACE 100 MG PO (08:59)
[2024-07-14] MEDS: CRESTOR 5 MG PO (08:59)
[2024-07-14] MEDS: VISBIOME 1 CAP PO (08:59)
[2024-07-14] MEDS: DESENEX/MITRAZOL/ZEASORB 1 APPLIC TOPICAL ×2 (09:00→20:43)
--- NOTE | 2024-07-14 09:43 | W.PN.HOSP.TC ---
Today's Communication/Plan
-
see A/P
Assessment / Plan
Assessment / Plan
Assessment/Plan
# Acute hypoxemic respiratory failure likely from progression of lung cancer
CT chest 07/03/2024 with interval increase of extension of the mass into the left side of the mediastinum
Oncology following. Will likely obtain outpatient PET to assess status
Per oncology, further treatment of lung cancer TBD
# Recurrent prostatitis
# E. coli UTI
Doxycycline for 6 weeks for prostatitis
ID following
# Sepsis secondary to right-sided prostate abscess
prostate ultrasound 07/05/2024 noted 1.4 cm focal hypoechoic lesion in the right mid peripheral zone of the prostate gland.
Pelvic MRI 07/10/2024 1.8 x 1.3 x 1.1 cm peripherally enhancing focus within the posterior lateral right peripheral zone in the mid/apical aspect of the gland which is most likely likely an abscess.
IR was consulted for aspiration, they deemed not easily accessible hence would not proceed
Urology following. Plan for TUR prostatic abscess on Sunday 07/15 after Plavix/Eliquis washout, would use spinal anesthesia due to respiratory failure
Pulmonary on board for preoperative risk stratification- Okay to proceed with prostate surgery when able. Intermediate to high risk.
Cardiology following, input appreciated. High risk for surgery due to ischemic heart disease
# Aspiration pneumonia suspected
Chest x-ray 07/09/2024 increase in reticulonodular more confluent areas of parenchymal opacity within both lungs, greater on the left compared to the right. The appearance is highly suggestive of bilateral pneumonia.
ID input appreciated,
QTc>500, switched moxifloxacin to ertapenem
Could not tolerated VSE due to inability to sit up long enough from hypoxia
# generalized weakness/fall
# Orthostatic hypotension
Continue midodrine/Florinef for orthostasis
cont abdominal binder
PT/OT recc SNF
cosyntropin STIM test without adrenal insufficiency
Flomax and Ranexa stopped without improvement in orthostasis
# Relapsing Eosinophilia
follow eosinophilia, possibly due to cephalosporins, less likely amiodarone which he has been off of since last admission, previously felt eosinophilia relapsing prior to restarting keytruda based on outpatient records
Continue ertapenem.
# anemia of chronic disease
Stable hemoglobin with no evidence of bleeding
Monitor hemoglobin level
# CKD stage 3b
SCr today at 1.3, at baseline
# Type 2 DM
cover with sliding scale
Lantus 10 u HS on hold preop
# Lung cancer of left lobe, squamous cell carcinoma
Primary oncologist is Dr. Shin
s/p SBRT, completed carbo/taxol 04/17/2024, was on Keytruda
spoke with Dr. Shin, needs PET at [facility] where his other scans are
# Chronic diastolic congestive heart failure
hold torsemide
Off Ranexa due to orthostatic hypotension
# Paroxysmal AFib
# CAD s/p CABG KINCAID-LAD 04/2015. PCI LM and LCX 06/2015; 09/2022 post cath with patent KINCAID to LAD and stent and no new obstructive CAD
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
Eliquis 2.5 mg twice daily, Plavix 75 mg daily , both medication on hold
ASA added while off Eliquis and Plavix.
apprec cards
# BPH
Off Flomax due to orthostatic hypotension
cont finasteride
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
# Hypercholesterolemia
Continue Crestor
DVT ppx: off Eliquis preop
FC
Anticipated Discharge: > 48 hours
Subjective/Interval History
-
Date of Service: July 14, 2024
Objective Data
-
Labs:
Laboratory Results
07/14/24
06:35
WBC 15.4 H
Hgb 9.3 L
Hct 29.0 L
Plt Count 283
Sodium 133 L
Potassium 4.4
Chloride 99
Carbon Dioxide 32 H
BUN 32 H
Creatinine 1.3
Glucose 89
Calcium 10.8 H
Vital Signs:
Vital Signs
Temp Pulse Resp BP Pulse Ox
36.8 C 75 20 145/68 96
07/14/24 08:13 07/14/24 08:59 07/14/24 08:13 07/14/24 08:59 07/14/24 08:13
I&O
07/13/24 07/14/24 07/15/24
06:59 06:59 06:59
Intake Total 480 / 480 1200 / 1200
Output Total 745 / 745 650 / 650
Balance -265 / -265 550 / 550
Review of Systems
-
All other systems: Reviewed and negative (Except as documented)
Physical Exam
-
General: Respiratory Distress and Appears Chronically Ill
HEENT: Oxygen (6L NC)
Respiratory: Crackles and Non Labored Respirations
Cardiac: Regular Rhythm and S1/S2
GI: Soft, Nontender and Nondistended
Musculoskeletal: No Clubbing, No Cyanosis and No Edema
Neuro: Awake
Psych: Calm and Intact Judgement/Insight
Data Reviewed
-
MRI: Report Reviewed by me, Discussed with Physician and Discussed with Patient
Labs: Labs Reviewed by me
--- NOTE | 2024-07-14 11:36 | W.PN.ID1 ---
Date of Service
Date of Service: July 14, 2024
Today's Communication
follow eosionphilia - rate of increase declining
continue ertapenem and doxycycline
Assessment / Plan
Relapsing Eosinophilia
- continue to follow CBC with diff daily
- had chest pain but no evidence of AR or pericarditis
- continue ertapenem for now
- follow eosinophilia - if persists/progresses may eventually need to reconsider causes/steroids, rate of increase is slowing - less likely prostatitis as currently on effective therapy, possibly due to recent cephalosporins, less likely amiodarone
which he has been off of since last admission, previously felt eosinophilia relapsing prior to restarting keytruda based on outpatient records
Suspected Aspiration Pneumonia
Leukocytosis, borderline fever, persistent hypoxemia
- CXR - progression of L lung infiltrates on my read - coughing and choaking
- continue ertapenem given pending surgery
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
- for TURP and removal of abscess today
- continue doxycycline currently plan 6 week course
AW
Chief Complaint
-: Other (prostatitis, eosinophilia)
Subjective / Review of Systems
afebrile
remains on 6L NC
cr stable
further increase in AEC though percentage decreased today, rate of increase is declining from 0.9 to 0.5 to 0.4
troponins essentially normal
'Im so tired' no better and no worse
Vital Signs / Physical Exam
Vital Signs
Vital Signs
Temp Pulse Resp BP Pulse Ox
98.2 F 75 20 145/68 96
07/14/24 08:13 07/14/24 08:59 07/14/24 08:13 07/14/24 08:59 07/14/24 08:50
Physical Exam
Constitutional: No Acute Distress and Chronically Ill
Cardiovascular: Regular Rate and S1/S2; Negative Murmur or Rub
Pulmonary: Clear and Symmetric; Negative Wheezes or Rales
Gastrointestinal: Soft, Non Tender, Non Distended and Normal Bowel Sounds
Skin: Warm and Dry; Negative Rash or Jaundice
Objective Data
Lab Data
Lab Results
07/14/24 06:35
07/14/24 06:35
Estimated Creat Clear 47 ml/min 07/14/24 06:35
Total Bilirubin 0.2 mg/dl (0.2-1.3) 07/07/24 08:18
AST 15 U/L (17-59) L 07/07/24 08:18
ALT < 10 U/L (0-50) 07/07/24 08:18
Alkaline Phosphatase 60 U/L (38-126) 07/07/24 08:18
Most recent labs reviewed.
Micro Results:
07/09/24 15:26 Influenza Types A & B (MARY) - Final
Nasal Swab Negative for Influenza A & B, NAAT
Negative results must be combined with clinical observations
and patient history.
Nucleic Acid Amplification test (NAAT)performed on the
[employer] platform.
07/02/24 13:56 Urine Culture - Final
Urine Escherichia coli
07/02/24 22:19 MRSA Screen - Final
Nose No Methicillin Resistant Staphylococcus aureus isolated.
Pelvis MRI-07/10/2024 -
1.8 x 1.3 x 1.1 cm peripherally enhancing, T2 hyperintense focus within the posterior lateral right peripheral zone in the mid/apical aspect of the gland which is most likely likely an abscess. This appears to correlate with the abnormality seen on
recent ultrasound. Mild BPH changes.
There are numerous diverticuli along the posterior aspect of the urinary bladder which measure up to 2.4 cm. There is additional prominent trabeculations of the urinary bladder. Findings are likely sequelae of chronic outlet obstruction.
Chest x-ray-07/09/2024-
Interval increase in reticulonodular more confluent areas of parenchymal opacity within both lungs greater on the left compared to the right appearance is highly suggestive of bilateral pneumonia.
Prostate ultrasound-07/05/2024-
1.4 cm focal hypoechoic lesion in the right mid peripheral zone of the prostate gland. Diagnostic possibilities include 1 abscess given the history of prostatitis 2 complex cyst [address]-07/03/2024-
Left upper lobe mass compatible with carcinoma. Since prior CT of November 26, 2023, evidence for interval increase of extension of the mass into the left side of the mediastinum.
Nodular parenchymal opacities within both lower lobes have increased compared to prior CT examination, morphologic appearance most suggestive of pneumonia.
Interval improvement in reticulonodular and ground glass opacities within both upper lungs, mainly within the upper lobes, suggesting improvement in pneumonia and/or lymphangitic spread of carcinoma.
Minimal bilateral posterior pleural effusions.
Chest x-ray-07/02/2024-
Again seen are diffusely increased interstitial opacities bilaterally with more confluent appearance within the left apical and basilar segments. No new areas of airspace disease. No pleural effusions or pneumothorax.
[2024-07-14] MEDS: INVANZ 60 MG IV (11:51)
[2024-07-14 12:00] LABS: Glucose - Point of Care 151 mg/dl (70-99)
--- NOTE | 2024-07-14 13:20 | W.PN.PUL.V3 ---
Today's Communication / Plan
-
Aspiration precautions
Nebulizers
Antibiotics-doxycycline and ertapenem
Urologic surgery tomorrow
Plavix and Eliquis hold for procedure
Assessment
-
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 He was also hypoxic at the half-way. He was
found to have a UTI and was admitted to the hospitalist service and started on antibiotics. ID consulted and a transrectal prostate ultrasound was performed on 07/05/2024 showing a 1.4 cm focal hypoechoic lesion in the right mid peripheral zone of
the prostate gland. Subsequent pelvic MRI on 07/10/2024 showed concern for a prostate abscess. Urology consulted and he is now awaiting either percutaneous drainage via IR versus surgery. He has remained on oxygen throughout this hospital course
with worsening O2 requirements since the evening of 07/09. Pulmonary service now consulted for preoperative stratification for prostate drainage of suspected abscess.
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
former tobacco smoker, hypertension, hyperlipidemia, DM type II, BPH, RBBB, PVD s/p vein stripping + fem bypass (2019), bilateral CEA, CKD, history of aortic aneurysm
Impression:
#Sepsis without shock due to right-sided prostate abscess, UTI + pneumonia
#Suspected bilateral pneumonia vs post-obstructive MICHEAL PNA in setting of bilateral lymphangitic carcinomatosis; component of aspiration pneumonia is suspected
#Mediastinal lymphadenopathy seen on CT chest from 07/03/2024, likely due to known MICHEAL lung cancer
#Recurrent UTI/bacterial prostatitis due to E. coli (R=cipro)
#Hx of MICHEAL NSCLC (SCC) with recurrence with Hx of SBRT (11/2022) and chemoimmunotherapy with keytra, carbo/taxol
#Acute respiratory failure with hypoxia on supplemental oxygen due to above
#Anemia (baseline Hb 8-10g/dL)
#Hypereosinophilic syndrome
#Hypochloremic, hyponatremia
#CKD (baseline Cr 1.3)
#DM type II c/b hyperglycemia (HbA1c: 8 on 07/03/2024)
#Hypoalbuminemia due to poor nutritional status
#Orthostatic hypotension
#COPD/emphysema not on inhalers as an outpatient
#Former tobacco smoker
Plan:
-
Respiratory status relatively stable
Supplemental oxygen as needed-assess discharge supplemental oxygen needs at the time of discharge
Incentive spirometry
Mucus clearing devices if needed
Aspiration precautions
Speech therapy evaluation
Video swallow when able-could not tolerate due to inability to sit up long enough
DuoNebs and budesonide continue
CT chest from 07/03/2024 shows suspected local recurrence of known MICHEAL lung cancer with residual reticular nodular opacities, bilateral nodular opacities and bilateral upper lobe intralobular septal thickening with concern for lymphangitic
carcinomatosis; he also has small bilateral pleural effusions with differential including malignant effusion, acute decompensated heart failure vs parapneumonic.
Peripheral eosinophilia noted-unclear etiology possibly medication induced
IgE pending
Continue to monitor CBC with differential
No indication for systemic steroids
Check cultures
Infectious disease following
Antibiotics continue for aspiration pneumonia and prostatitis-ertapenem now in addition to doxycycline
Urology following
Plavix washout-intermediate to high risk procedure from a pulmonary perspective for TURP
Thankfully his ARISCAT score is low for postoperative pulmonary complications (1.6% risk of in-hospital post-op pulmonary complications (composite including respiratory failure, respiratory infection, pleural effusion, atelectasis, pneumothorax,
bronchospasm, aspiration pneumonitis)
Cosyntropin stim test noted
Continues on midodrine and Florinef
Cardiology following-correspondence reviewed
Diuresis as tolerated
Monitor renal function, electrolytes, intake/output, lower extremity edema and weight
Replace electrolytes as needed
Lung cancer likely with recurrence-currently on Keytruda.
Continue to follow-up with oncology after discharge.
DVT prophylaxis-on Eliquis-on hold for procedure
Outpatient follow-up will be arranged with our office given last visit on 04/03/[address]24 with VJ Wild and Dr Melgar

Data:
Pelvis MRI w + w/o contrast 07/10/2024:
1.8 x 1.3 x 1.1 cm peripherally enhancing, T2 hyperintense focus within the posterior lateral right peripheral zone in the mid/apical aspect of the gland which is most likely likely an abscess. This appears to correlate with the abnormality seen on
recent ultrasound.
Mild BPH changes.
There are numerous diverticuli along the posterior aspect of the urinary bladder which measure up to 2.4 cm. There is additional prominent trabeculations of the urinary bladder. Findings are likely sequelae of chronic outlet obstruction.
[place] diverticulosis.
CT Chest w/o contrast 07/03/2024:
Left upper lobe mass compatible with carcinoma. Since prior CT of November 26, 2023, evidence for interval increase of extension of the mass into the left side of the mediastinum.
Nodular parenchymal opacities within both lower lobes have increased compared to prior CT examination, morphologic appearance most suggestive of pneumonia.
Interval improvement in reticulonodular and groundglass opacities within both upper lungs, mainly within the upper lobes, suggesting improvement in pneumonia and/or lymphangitic spread of carcinoma.
Minimal bilateral posterior pleural effusions.
Total time spent today was 77 minutes for this encounter. Time includes reviewing laboratory test/imaging results, reviewing pertinent medical records, obtaining and reviewing medical history, performing an appropriate exam, ordering medications,
tests and procedures. Time also includes documentation of this encounter, coordinating patient care and communicating with other healthcare professionals. Total time does not include separately billed tests performed on this date of service.
Subjective Data
-
Date of Service:
Date of Service: July 14, 2024
Chief Complaint: Pulmonary Follow Up and Dyspnea Follow Up
Subjective:
Overall feels slightly better, confused this morning but knows where he is at and asking if he is having surgery tomorrow, has minimal cough, no chest pain, shortness of breath at rest, productive cough, abdominal pain or leg swelling
Review of Systems
General: Other (Per HPI)
Objective Data
Data Reviewed
Vital Signs / I&O:
Vital Signs
Temp Pulse Resp BP Pulse Ox
98.2 F 70 20 118/61 96
07/14/24 08:13 07/14/24 11:51 07/14/24 08:13 07/14/24 11:51 07/14/24 08:50
Intake and Output
07/13/24 07/14/24 07/15/24
06:59 06:59 06:59
Intake Total 480 / 480 1200 / 1200
Output Total 745 / 745 650 / 650
Balance -265 / -265 550 / 550
SaO2: 96
Nasal Cannula flow liters per minute: 6
Physical Exam
General: Respiratory Distress (n) and Comfortable
HEENT: Normocephalic, Anicteric and Moist Mucous Membranes
Cardiovascular: Regular Rhythm
Respiratory: Wheeze (n), Crackles, Non-Labored Respirations, Accessory Resp Muscle Use and Stridor (n)
GI: Soft, Non Distended and Non Tender
Neurology: Awake, Alert and No Motor Deficits
Skin: Warm, Good Color, Cyanosis (n) and Jaundice (n)
Labs/Micro/Reports
Lab Data
07/14/24 06:35
07/14/24 06:35
--- NOTE | 2024-07-14 14:04 | CM ---
CM continues to follow for SNF transfer when medically ready. [facility] bed, however [facility] is not medically stable for transfer at this time. TURP planned for tomorrow.
Plan: Transfer to SNF when medically cleared for discharge.
[2024-07-14 16:00] VITALS: BP 131/62
[2024-07-14 17:03] LABS: Glucose - Point of Care 98 mg/dl (70-99)
[2024-07-14 17:06] LABS: IgE 14984 kU/L (<=214)
--- NOTE | 2024-07-14 17:52 | W.SUR.PREOP ---
Pre-Operative Surgical Note
-
I have examined this patient prior to the performance of the scheduled procedure.
The patient's condition is unchanged from the time of the current History and
Physical and the patient is able to undergo the scheduled procedure.
Overall high risk and complicated medical situation - MRI-confirmed prostatic abscess noted which would require surgical unroofing (TUR prostatic abscess) vs. percutaneous/perineal/transrectal drainage by IR.
D/w IR regarding feasibility but limited by staff availability for complexity of procedure.
Currently on >6L O2 in addition to Plavix/Eliquis being held since early in week for anticoagulant/antiplatelet medication washout (48 hrs for Eliquis, ideally 7 days for Plavix but acceptable from surgical standpoint).
Detailed discussion had w/ patient including potential risks and complications of surgery including but not limited to urosepsis, bacteremia, bleeding, respiratory failure, VDRF, DVT/PE, CVA, [place], and .
Patient is well-informed of the risks and his high risk from an anesthesia and surgical standpoint.
Plan:
- continue holding Plavix/Eliquis
- NPO@[place] for OR tomorrow - TUR prostatic abscess +/- TURP
- plan for spinal anesthesia w/ sedation due to high risk pulmonary status (d/w Anesthesiology)
- Continue IV antibiotics per ID
D/w patient at length today.
D/w Hospitalist.
D/w Anesthesiologist.
[2024-07-14 21:27] LABS: Glucose - Point of Care 110 mg/dl (70-99)
[2024-07-14 23:49] VITALS: BP 147/66
[2024-07-15] VITALS (15 sets, daily range): BP systolic 80–160; BP diastolic 48–71
[2024-07-15 06:03] LABS: Blood Urea Nitrogen 31 mg/dl (9-20); Calcium 10.9 mg/dl (8.4-10.2); Carbon Dioxide 33 mmol/L (22-30); Chloride 99 mmol/L (98-107); Estimated Creatinine Clearance 44 ml/min; Glucose 79 mg/dl (70-99); Potassium 4.4 mmol/L (3.5-5.1); Sodium 136 mmol/L (135-145); eGFR 50.18
[2024-07-15 06:22] LABS: Glucose - Point of Care 70 mg/dl (70-99)
[2024-07-15 06:30] LABS: Hematocrit 29.3 % (39.0-52.0); Hemoglobin 9.3 g/dL (13.0-18.0); Mean Corp Hgb Conc. 31.7 g/dL (33.0-37.0); Mean Corpuscular Hgb 28.8 pg (27.0-31.0); Mean Corpuscular Volume 90.7 fL (80.0-94.0); Platelet Count 320 10^3/uL (130-400); Red Blood Cell Count 3.23 10^6/uL (4.70-6.10)
[2024-07-15] MEDS: DUONEB 3 ML INH ×2 (07:34→19:13)
[2024-07-15] MEDS: PULMICORT 0.5 MG INH ×2 (07:34→19:13)
--- NOTE | 2024-07-15 07:35 | W.SUR.PREOP ---
Pre-Operative Surgical Note
-
I have examined this patient prior to the performance of the scheduled procedure.
The patient's condition is unchanged from the time of the current History and
Physical and the patient is able to undergo the scheduled procedure.
Overall high risk and complicated medical situation - MRI-confirmed prostatic abscess in right mid to apical glands which would require drainage either via: surgical unroofing (TUR prostatic abscess) vs. percutaneous/perineal/transrectal drainage by
IR.
D/w IR regarding feasibility but limited by staff availability for complexity of procedure.
Currently on >6L O2 in addition to Plavix/Eliquis held since early past week for anticoagulant/antiplatelet medication washout (48 hrs for Eliquis, ideally 7 days for Plavix but acceptable from surgical standpoint).
Detailed discussion had w/ patient including potential risks and complications of surgery including but not limited to urosepsis, bacteremia, bleeding, respiratory failure, VDRF, DVT/PE, CVA, [place], and .
Patient is well-informed of the risks and his high risk status from a cardiac, pulmonary, anesthesia, and surgical standpoint.
GOC regarding his lung cancer progression and treatment status discussed as well - patient wishes to proceed w/ urologic intervention for prostatic abscess.
Plan:
- continue holding Plavix/Eliquis
- NPO@[place] for OR tomorrow - TUR prostatic abscess +/- TURP
- plan for spinal anesthesia w/ sedation due to high risk pulmonary status (d/w Anesthesiology)
- Continue IV antibiotics per ID
D/w patient.
D/w Hospitalist.
D/w Anesthesiologist.
[2024-07-15 08:14] LABS: Absolute Neutrophils -Man Diff 13.7 10^3/uL (1.4-6.5); Band Neutrophils 0 % (0-3); Eosinophils 13 % (0-6); Lymphocytes 1 % (20-51); Monocytes 5 % (2-9); Platelets Checked Yes; Segmented Neutrophils 81 % (42-75)
[2024-07-15 08:15] LABS: Normal RBC Morphology Yes; Total Cells Counted 100
[2024-07-15] MEDS: DESENEX/MITRAZOL/ZEASORB TOPICAL (08:26)
[2024-07-15] MEDS: NOVOLOG FLEXPEN-LOW RESISTANCE SC ×3 (08:26→17:24)
[2024-07-15] MEDS: ASPIR LOW (ENTERIC COATED) PO (08:26)
[2024-07-15] MEDS: CRESTOR PO (08:26)
[2024-07-15] MEDS: COLACE PO (08:26)
[2024-07-15] MEDS: FLORASTOR PO (08:27)
[2024-07-15] MEDS: VIBRAMYCIN PO (08:27)
[2024-07-15] MEDS: ProAmatine PO (08:27)
[2024-07-15] MEDS: PROSCAR PO (08:27)
[2024-07-15] MEDS: TYLENOL PO (08:27)
[2024-07-15] MEDS: VISBIOME PO (08:27)
[2024-07-15] MEDS: FLORINEF PO (08:27)
--- NOTE | 2024-07-15 09:47 | W.IMMPOSTOP ---
Surgical Immed Post Op Note
-
Primary Surgeon: Sharan
Pre-op Diagnosis:
1. BPH with LUTS
2. Right mid to apical gland prostatic abscess (1.8 cm)
Post-op Diagnosis: Same
Procedure Performed:
1. TUR unroofing of prostatic abscess
2. TURP
3. Complicated catheter placement (over Guidewire due to posterior pocket from resected abscess cavity)
Anesthesia Type: Spinal + MAC
Specimen / Cultures:
1. Abscess urine culture
2. Prostate chips
Estimated Blood Loss: 2 cc
Drains: 22Fr 3-way Sloan catheter (30 cc in balloon)
Complications: None
Operative Findings:
1. ~2 cm prostatic abscess cavity in posterolateral right apex unroofed w/ wide resection - immediate evacuation of thick purulent debris.
2. Remainder of obstructing median lobe and lateral lobe adenoma resected.
3. Excellent hemostasis on final cysto.
4. Globally trabeculated bladder w/ cellule formation c/w changes of chronic DOBBS.
--- NOTE | 2024-07-15 09:51 | W.PN.UPDATE ---
Update Note
Progress Note Update
s/p TUR unroofing of prostatic abscess + TURP - on intraop or immediate periop complications.
Patient tolerated procedure well under spinal + sedation.
Plan:
- continue CBI x24 hrs to keep urine light and clot-free - primarily for bladder irrigation of purulent debris from abscess
- F/U intraop abscess UCx
- Continue IV antibiotics per ID
- DO NOT REMOVE 3-way catheter - patient will undergo outpatient TOV in 7-10 days
[2024-07-15 09:52] LABS: Glucose - Point of Care 68 mg/dl (70-99)
[2024-07-15] MEDS: DEXTROSE 50% SYRINGE 12.5 GRAMS IV (09:53)
--- NOTE | 2024-07-15 10:03 | SUR.PHASEI ---
Patient hypoglycemic on arrival to PACU, treated with Dextrose per protocol. Will monitor. Dr Renner aware of hypotension and hypoglycemia. Ernestina matson RN BSN.
[2024-07-15 10:16] LABS: Glucose - Point of Care 96 mg/dl (70-99)
--- NOTE | 2024-07-15 10:44 | W.PN.HOSP.TC ---
Today's Communication/Plan
-
see A/P
Assessment / Plan
Assessment / Plan
Assessment/Plan
# Acute hypoxemic respiratory failure likely from progression of lung cancer
CT chest 07/03/2024 with interval increase of extension of the mass into the left side of the mediastinum
Oncology following. Will likely obtain outpatient PET to assess status
Per oncology, further treatment of lung cancer TBD
# Recurrent prostatitis
# E. coli UTI
Doxycycline for 6 weeks for prostatitis
ID following
# Sepsis secondary to right-sided prostate abscess
prostate ultrasound 07/05/2024 noted 1.4 cm focal hypoechoic lesion in the right mid peripheral zone of the prostate gland.
Pelvic MRI 07/10/2024 1.8 x 1.3 x 1.1 cm peripherally enhancing focus within the posterior lateral right peripheral zone in the mid/apical aspect of the gland which is most likely likely an abscess.
IR was consulted for aspiration, they deemed not easily accessible hence would not proceed
Urology following.
s/p TUR unroofing of prostatic abscess + TURP on Sunday 07/15 after Plavix/Eliquis washout
started CBI, continue
keep 3-way catheter with eventual plan for outpatient TOV in 7-10 days
# Aspiration pneumonia suspected
Chest x-ray 07/09/2024 increase in reticulonodular more confluent areas of parenchymal opacity within both lungs, greater on the left compared to the right. The appearance is highly suggestive of bilateral pneumonia.
ID input appreciated,
QTc>500, switched moxifloxacin to ertapenem
Could not tolerated VSE due to inability to sit up long enough from hypoxia
# generalized weakness/fall
# Orthostatic hypotension
Continue midodrine/Florinef for orthostasis
cont abdominal binder
PT/OT recc SNF
cosyntropin STIM test without adrenal insufficiency
Flomax and Ranexa stopped without improvement in orthostasis
# Relapsing Eosinophilia
follow eosinophilia, possibly due to cephalosporins, less likely amiodarone which he has been off of since last admission, previously felt eosinophilia relapsing prior to restarting keytruda based on outpatient records
Continue ertapenem.
# anemia of chronic disease
Stable hemoglobin with no evidence of bleeding
Monitor hemoglobin level
# CKD stage 3b
SCr today at 1.4, at baseline
# Type 2 DM
cover with sliding scale
Lantus 10 u HS on hold pre and periop (due to mild hypoglycemia)
# Lung cancer of left lobe, squamous cell carcinoma
Primary oncologist is Dr. Shin
s/p SBRT, completed carbo/taxol 04/17/2024, was on Keytruda
spoke with Dr. Shin, needs PET at [facility] where his other scans are
# Chronic diastolic congestive heart failure
hold torsemide
Off Ranexa due to orthostatic hypotension
# Paroxysmal AFib
# CAD s/p CABG KINCAID-LAD 04/2015. PCI LM and LCX 06/2015; 09/2022 post cath with patent KINCAID to LAD and stent and no new obstructive CAD
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
Eliquis 2.5 mg twice daily, Plavix 75 mg daily , both medication on hold. Need to check with Uro when OK to resume them.
ASA added while off Eliquis and Plavix.
apprec cards
# BPH
Off Flomax due to orthostatic hypotension
cont finasteride
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
# Hypercholesterolemia
Continue Crestor
DVT ppx: off Eliquis periop
FC
DW Uro extensively.
total time spent 51 min
Anticipated Discharge: 24 - 48 hours
Subjective/Interval History
-
Date of Service: July 15, 2024
Objective Data
-
Labs:
Laboratory Results
07/15/24
05:31
WBC 17.0 H
Hgb 9.3 L
Hct 29.3 L
Plt Count 320
Sodium 136
Potassium 4.4
Chloride 99
Carbon Dioxide 33 H
BUN 31 H
Creatinine 1.4 H
Glucose 79
Calcium 10.9 H
Vital Signs:
Vital Signs
Temp Pulse Resp BP Pulse Ox
36.4 C 71 18 124/58 94
07/15/24 10:39 07/15/24 10:30 07/15/24 10:30 07/15/24 10:30 07/15/24 10:15
I&O
07/14/24 07/15/24 07/16/24
06:59 06:59 06:59
Intake Total 1200 / 1200 225 / 225
Output Total 650 / 650 225 / 225
Balance 550 / 550 -225 / -225 225 / 225
Review of Systems
-
All other systems: Reviewed and negative (Except as documented)
Physical Exam
-
General: Respiratory Distress and Appears Chronically Ill
HEENT: Oxygen (on ventimask in PACU)
Respiratory: Crackles and Non Labored Respirations
Cardiac: Regular Rhythm and S1/S2
GI: Soft, Nontender and Nondistended
Musculoskeletal: No Clubbing, No Cyanosis and No Edema
Neuro: Awake
Psych: Calm and Intact Judgement/Insight
Data Reviewed
-
MRI: Report Reviewed by me, Discussed with Physician and Discussed with Patient
Labs: Labs Reviewed by me
--- NOTE | 2024-07-15 11:02 | PTCARENOTE ---
Received pt. back from PACU on 10L simple mask sat 91-94%, B/P 159/69 HR 74. Pt. drowsy but response to verbal stimulation. CBI intact draining clear pale yellow urine. called this nurse and was update on pt. status. Dr. Santiago updated as well,
this nurse requested telemetry orders. No new orders at this time. Will continue to monitor.
--- NOTE | 2024-07-15 11:15 | PTCARENOTE ---
Pt. placed on telemetry as ordered. NSR in the 70s. Will monitor and report on pt.
[2024-07-15] MEDS: INVANZ 60 MG IV (12:00)
[2024-07-15] MEDS: ProAmatine 10 MG PO ×2 (12:03→16:49)
--- NOTE | 2024-07-15 12:19 | W.PN.PUL.V3 ---
Today's Communication / Plan
-
Tolerated prostatic surgery well
Supplemental oxygen
Gentle diuresis
Antibiotics
Outpatient pulmonary follow-up
Assessment
-
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 He was also hypoxic at the [facility]. He was
found to have a UTI and was admitted to the hospitalist service and started on antibiotics. ID consulted and a transrectal prostate ultrasound was performed on 07/05/2024 showing a 1.4 cm focal hypoechoic lesion in the right mid peripheral zone of
the prostate gland. Subsequent pelvic MRI on 07/10/2024 showed concern for a prostate abscess. Urology consulted and he is now awaiting either percutaneous drainage via IR versus surgery. He has remained on oxygen throughout this hospital course
with worsening O2 requirements since the evening of 07/09. Pulmonary service now consulted for preoperative stratification for prostate drainage of suspected abscess.
Chronic conditions [employer]: MICHEAL SCC s/p SBRT (11/2022) with progression via PET/CT in July 2023 s/p chemoimmunotherapy in October 2023 with Keytruda + carbo/Taxol, A-fib on Eliquis, CAD s/p CABG, history of VT/VF arrest (04/2015), COPD/emphysema,
former tobacco smoker, hypertension, hyperlipidemia, DM type II, BPH, RBBB, PVD s/p vein stripping + fem bypass (2019), bilateral CEA, CKD, history of aortic aneurysm
Impression:
#Sepsis without shock due to right-sided prostate abscess, UTI + pneumonia
#Suspected bilateral pneumonia vs post-obstructive MICHEAL PNA in setting of bilateral lymphangitic carcinomatosis; component of aspiration pneumonia is suspected
#Mediastinal lymphadenopathy seen on CT chest from 07/03/2024, likely due to known MICHEAL lung cancer
#Recurrent UTI/bacterial prostatitis due to E. coli (R=cipro)
#Hx of MICHEAL NSCLC ([facility]) with recurrence with Hx of SBRT (11/2022) and chemoimmunotherapy with keytra, carbo/taxol
#Acute respiratory failure with hypoxia on supplemental oxygen due to above
#Anemia (baseline Hb 8-10g/dL)
#Hypereosinophilic syndrome
#Hypochloremic, hyponatremia
#CKD (baseline Cr 1.3)
#DM type II c/b hyperglycemia (HbA1c: 8 on 07/03/2024)
#Hypoalbuminemia due to poor nutritional status
#Orthostatic hypotension
#COPD/emphysema not on inhalers as an outpatient
#Former tobacco smoker
Plan:
-
Respiratory status remained stable
Supplemental oxygen as needed-assess discharge supplemental oxygen needs at the time of discharge
Incentive spirometry encouraged
Mucus clearing devices if needed
Aspiration precautions
Speech therapy evaluation
Video swallow when able-could not tolerate due to inability to sit up long enough
DuoNebs and budesonide continue
CT chest from 07/03/2024 shows suspected local recurrence of known MICHEAL lung cancer with residual reticular nodular opacities, bilateral nodular opacities and bilateral upper lobe intralobular septal thickening with concern for lymphangitic
carcinomatosis; he also has small bilateral pleural effusions with differential including malignant effusion, acute decompensated heart failure vs parapneumonic.
Peripheral eosinophilia noted-unclear etiology possibly medication induced
IgE pending
Continue to monitor CBC with differential
No indication for systemic steroids
Check cultures
Infectious disease following
Antibiotics continue for aspiration pneumonia and prostatitis-ertapenem now in addition to doxycycline-will continue for 6 weeks
Urology following-correspondence reviewed
Plavix washout-intermediate to high risk procedure from a pulmonary perspective for TURP
The patient's ARISCAT score is low for postoperative pulmonary complications (1.6% risk of in-hospital post-op pulmonary complications (composite including respiratory failure, respiratory infection, pleural effusion, atelectasis, pneumothorax,
bronchospasm, aspiration pneumonitis)
Tolerated 07/15/2024 surgery well with spinal anesthesia and sedation
Status post TUR unroofing of prostatic abscess, TURP and complicated catheter placement over guidewire due to posterior pocket from resected abscess cavity 07/15/2024
Cosyntropin stim test noted
Continues on midodrine and Florinef
Cardiology following-correspondence reviewed
Diuresis as tolerated
Monitor renal function, electrolytes, intake/output, lower extremity edema and weight
Replace electrolytes as needed
Lung cancer likely with recurrence-currently on Keytruda.
Continue to follow-up with oncology after discharge.
DVT prophylaxis-on Eliquis-on hold for procedure
Outpatient follow-up will be arranged with our office given last visit on 04/03/[address]24 with VJ Wild and Dr Melgar

Data:
Pelvis MRI w + w/o contrast 07/10/2024:
1.8 x 1.3 x 1.1 cm peripherally enhancing, T2 hyperintense focus within the posterior lateral right peripheral zone in the mid/apical aspect of the gland which is most likely likely an abscess. This appears to correlate with the abnormality seen on
recent ultrasound.
Mild BPH changes.
There are numerous diverticuli along the posterior aspect of the urinary bladder which measure up to 2.4 cm. There is additional prominent trabeculations of the urinary bladder. Findings are likely sequelae of chronic outlet obstruction.
[place] diverticulosis.
CT Chest w/o contrast 07/03/2024:
Left upper lobe mass compatible with carcinoma. Since prior CT of November 26, 2023, evidence for interval increase of extension of the mass into the left side of the mediastinum.
Nodular parenchymal opacities within both lower lobes have increased compared to prior CT examination, morphologic appearance most suggestive of pneumonia.
Interval improvement in reticulonodular and groundglass opacities within both upper lungs, mainly within the upper lobes, suggesting improvement in pneumonia and/or lymphangitic spread of carcinoma.
Minimal bilateral posterior pleural effusions.
Total time spent today was 77 minutes for this encounter. Time includes reviewing laboratory test/imaging results, reviewing pertinent medical records, obtaining and reviewing medical history, performing an appropriate exam, ordering medications,
tests and procedures. Time also includes documentation of this encounter, coordinating patient care and communicating with other healthcare professionals. Total time does not include separately billed tests performed on this date of service.
Subjective Data
-
Date of Service:
Date of Service: July 15, 2024
Chief Complaint: Pulmonary Follow Up and Dyspnea Follow Up
Subjective:
No respiratory distress, no increased pain
Review of Systems
General: Other (Per HPI)
Objective Data
Data Reviewed
Vital Signs / I&O:
Vital Signs
Temp Pulse Resp BP Pulse Ox
97.5 F 75 24 141/70 95
07/15/24 11:02 07/15/24 12:03 07/15/24 11:21 07/15/24 12:03 07/15/24 11:21
Intake and Output
07/14/24 07/15/24 07/16/24
06:59 06:59 06:59
Intake Total 1200 / 1200 250 / 250
Output Total 650 / 650 225 / 225 500 / 500
Balance 550 / 550 -225 / -225 -250 / -250
SaO2: 95
Nasal Cannula flow liters per minute: 10
Physical Exam
General: Respiratory Distress (n) and Comfortable
HEENT: Normocephalic, Anicteric and Moist Mucous Membranes
Cardiovascular: Regular Rhythm
Respiratory: Wheeze (n), Crackles, Non-Labored Respirations, Accessory Resp Muscle Use and Stridor (n)
GI: Soft, Non Distended and Non Tender
Neurology: Awake, Alert and No Motor Deficits
Skin: Warm, Good Color, Cyanosis (n) and Jaundice (n)
Labs/Micro/Reports
Lab Data
07/15/24 05:31
07/15/24 05:31
[2024-07-15 12:27] LABS: Glucose - Point of Care 90 mg/dl (70-99)
--- NOTE | 2024-07-15 13:11 | CM ---
CM attempted to speak with Gonzalez again today; he was asleep with O2 mask on at 6L s/p TURP.
Pt's called asking if the TV could be put on for Gonzalez to watch the [employer] [place] game today.
Update provided, discussed SNF choice and Mrs. Alvarez was happy with [facility].
Plan: CM to continue to seek available SNF beds for rehabilitation. [facility] is preferred per pt's ; Gonzalez was not able to discuss his SNF choices today.
[2024-07-15] MEDS: TYLENOL 650 MG PO ×2 (15:36→22:13)
[2024-07-15 17:03] LABS: Glucose - Point of Care 91 mg/dl (70-99)
[2024-07-15] MEDS: DESENEX/MITRAZOL/ZEASORB 1 APPLIC TOPICAL (20:03)
[2024-07-15] MEDS: FLORASTOR 250 MG PO (20:05)
[2024-07-15] MEDS: VIBRAMYCIN 100 MG PO (20:05)
[2024-07-15 21:07] LABS: Glucose - Point of Care 99 mg/dl (70-99)
[2024-07-16] VITALS (12 sets, daily range): BP systolic 77–166; BP diastolic 48–84; PULSE 74–83; O2SAT 67
[2024-07-16 03:15] LABS: Glucose - Point of Care 96 mg/dl (70-99)
[2024-07-16 05:04] LABS: Blood Urea Nitrogen 36 mg/dl (9-20); Calcium 10.7 mg/dl (8.4-10.2); Carbon Dioxide 31 mmol/L (22-30); Chloride 99 mmol/L (98-107); Estimated Creatinine Clearance 44 ml/min; Glucose 96 mg/dl (70-99); Potassium 4.6 mmol/L (3.5-5.1); Sodium 137 mmol/L (135-145); eGFR 50.18
[2024-07-16 05:06] LABS: Hemoglobin 9.6 g/dL (13.0-18.0); Mean Corpuscular Volume 93.8 fL (80.0-94.0); Mean Platelet Volume 8.7 fL (7.4-10.4); Platelet Count 399 10^3/uL (130-400); Red Cell Dist. Width 15.1 % (11.5-14.5); White Blood Cell Count 18.7 10^3/uL (4.8-10.8)
[2024-07-16 06:30] LABS: % Basophils 0.5 % (0-2); % Eosinophils 22.8 % (0-6); % Immature Granulocytes 0.6 % (0-0.5); % Lymphocytes 5.9 % (20.5-51.1); % Monocytes 7.9 % (1.7-9.3); % Neutrophils 62.3 % (42.2-75.2); Absolute Basophils 0.1 10^3/uL (0-0.2); Absolute Eosinophils 4.3 10^3/uL (0-0.7); Absolute Immature Granulocytes 0.1 10^3/uL (0-0.05); Absolute Lymphocytes 1.1 10^3/uL (1.2-3.4); Absolute Monocytes 1.5 10^3/uL (0.1-0.6); Absolute Neutrophils 11.7 10^3/uL (1.4-6.5); Nucleated Red Blood Cells % 0 % (-)
[2024-07-16] MEDS: PULMICORT 0.5 MG INH ×2 (07:04→19:40)
[2024-07-16] MEDS: DUONEB 3 ML INH ×2 (07:04→19:40)
--- NOTE | 2024-07-16 07:55 | W.PN.URO.CBU ---
Today's Communication / Plan
-
Continue CBI to keep urine clear - likely another 24 hrs
Maintain Sloan catheter in place for at least 2 weeks pending clinical course
Tentative plan to resume Eliquis in AM on 07/18 (d/w Cardiology)
Will resume Plavix in step-mittal fashion thereafter
D/w RN.
D/w Hospitalist.
D/w Cardiology.
Assessment / Plan
-
E. Coli cUTI
Prostatic abscess (confirmed on MRI and intraoperatively)
Recurrent prostatitis
BPH with LUTS
Post Op Day:
07/15: s/p TUR unroofing of prostatic abscess + TURP
Overall very high risk situation - hypoxic respiratory failure and holding of AC/AP therapy (Eliquis/Plavix) for surgery.
Urine output excellent w/ minimal hematuria on low rate CBI.
Diagnosis
-
Date of Service: July 16, 2024
-
Patient Diagnosis:
E. Coli cUTI
Prostatic abscess (confirmed on MRI and intraoperatively)
Recurrent prostatitis
BPH with LUTS
Post Op Day:
07/15: s/p TUR unroofing of prostatic abscess + TURP
Subjective
-
Denies pelvic/penile pain.
Full sensation in LEs (s/p spinal).
Urine faintly pink on low rate CBI in tubing.
Objective
-
Vital Signs
Temp Pulse Resp BP Pulse Ox
98.3 F 77 20 83/63 95
07/16/24 11:40 07/16/24 11:40 07/16/24 11:40 07/16/24 11:40 07/16/24 11:40
Intake and Output
07/15/24 07/16/24 07/17/24
06:59 06:59 06:59
Intake Total 670 / 670
Output Total 225 / 225 1749 / 1749
Balance -225 / -225 -1080 / -1080
Intake:
Oral fluids 360 / 360
IV fluids (Total) 250 / 250
Norm 250 / 250
IV piggybacks 60 / 60
Output:
Urine, Voided 225 / 225
True Urine Output from CBI 1749 / 1749
Other:
How many times incontinent 1
MODERATE amount urine
How many times incontinent 1
SATURATED amount urine
Laboratory Results
07/16/24 04:44
07/16/24 04:44
Physical Exam
-
General - chronically ill-appearing
Chest - on supplemental O2
Abdomen - soft, non-tender, non-distended, no CVAT bilaterally
Genitalia - normal, 22Fr 3-way catheter w/ faintly pink-tinged UOP on low rate CBI
Neuro - awake, alert, no motor deficits
Extremities - no clubbing, no cyanosis, no edema
Care Review
Data Reviewed
Discussed with: Cardiology, Pulmonary, Hospitalist and Nursing
MRI: Report Pers Reviewed and Image Pers Reviewed
[2024-07-16 08:11] LABS: Glucose - Point of Care 94 mg/dl (70-99)
[2024-07-16] MEDS: NOVOLOG FLEXPEN-LOW RESISTANCE SC ×3 (08:44→17:14)
[2024-07-16] MEDS: TYLENOL 650 MG PO ×3 (08:45→22:37)
[2024-07-16] MEDS: FLORASTOR 250 MG PO ×2 (08:45→20:02)
[2024-07-16] MEDS: VIBRAMYCIN 100 MG PO ×2 (08:45→20:02)
[2024-07-16] MEDS: FLORINEF 0.2 MG PO (08:45)
[2024-07-16] MEDS: ASPIR LOW (ENTERIC COATED) 81 MG PO (08:45)
[2024-07-16] MEDS: VISBIOME 1 CAP PO (08:46)
[2024-07-16] MEDS: CRESTOR 5 MG PO (08:46)
[2024-07-16] MEDS: PROSCAR 5 MG PO (08:46)
[2024-07-16] MEDS: DESENEX/MITRAZOL/ZEASORB 1 APPLIC TOPICAL ×2 (08:46→20:02)
[2024-07-16] MEDS: ProAmatine PO (08:53)
[2024-07-16] MEDS: COLACE PO (08:55)
--- NOTE | 2024-07-16 09:13 | W.PN.HOSP.TC ---
Addendum entered and electronically signed by Cinthya Najera MD 07/16/24 21:16:
I saw and evaluated the patient independently. I reviewed the resident�s note and agree with findings and plan as documented by Dr. Tyler.
GENERAL: chronically ill appearing, deconditioned male in no apparent distress
HEENT: NC/AT--O2 NC now up to 6 L
HEART: regular rate and rhythm, +S1, +S2
LUNGS : clear to auscultation bilaterally
ABDOM: soft, nontender, nondistended, + bowel sounds
EXT: no cyanosis, clubbing, or edema
NEUROLOGIC: sleepy
: asnchez with CBI
Acute hypoxemic respiratory failure likely from progression of lung cancer--apprec heme--O2 up to 6L--recheck CXR--CT chest 07/03/2024 with interval increase of extension of the mass into the left side of the mediastinum--outpatient PET to assess
status
sepsis due to Recurrent E. coli prostatitis with UTI--apprec ID--doxycycline for 6 weeks--w/u revealed prostate abscess (prostate ultrasound 07/05/2024 noted 1.4 cm focal hypoechoic lesion in the right mid peripheral zone of the prostate
gland--Pelvic MRI 07/10/2024 1.8 x 1.3 x 1.1 cm peripherally enhancing focus within the posterior lateral right peripheral zone in the mid/apical aspect of the gland which is most likely likely an abscess.
IR was consulted for aspiration, they deemed not easily accessible hence would not proceed)--apprec urology--s/p TURP with unroofing the abscess--cont sanchez and CBI as per urology
Aspiration pneumonia suspected--difficulty getting VSE due to orthostatic hypotension--apprec ID--now on Ertapenem due to long QT
Severe Orthostatic hypotension with generalized weakness/fall --cannot use teds due to leg grafts--cont abdominal binder--cosyntropin STIM test without adrenal insufficiency--ranexa and flomax stopped--midodrine and florinef started
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
elevated--ID started prednisone (curiously his supine BP improved)--cont ertapenem
anemia of chronic disease--Stable hemoglobin with no evidence of bleeding
CKD stage 3b--SCr today at 1.4, currently at baseline
Type 2 DM--cover with sliding scale--Lantus 10 u HS
Lung cancer of left lobe, squamous cell carcinoma--s/p SBRT, completed carbo/taxol 04/17/2024, was on Keytruda--Dr. Najera spoke with Dr. Shin 2 weeks ago, needs PET at [facility] where his other scans are.
Chronic diastolic congestive heart failure--holding torsemide--Off Ranexa due to orthostatic hypotension
Paroxysmal AFib/CAD s/p CABG KINCAID-LAD 04/2015. PCI LM and LCX 06/2015; 09/2022 post cath with patent KINCAID to LAD and stent and no new obstructive CAD/History of VT/VF cardiac arrest 04/2015 underwent urgent CABG as above--due to procedures--Eliquis to
resume 07/18--plavix on hold-ASA added while off Eliquis and Plavix--apprec cards
BPH--cont finasteride
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
Hypercholesterolemia--Continue Crestor
DVT proph-- off Eliquis-- will resume 07/18
Code Status: Full code
need to have GOC discussion with patient and family given severe orthostatic hypotension and presumed progressive lung cancer
Original Note:
Today's Communication/Plan
-
CXR today.
Assessment / Plan
Assessment / Plan
Assessment/Plan
# Acute hypoxemic respiratory failure likely from progression of lung cancer
-Patient currently on 6L, wean as tolerated.
-CT chest 07/03/2024 with interval increase of extension of the mass into the left side of the mediastinum
-Oncology following. Will likely obtain outpatient PET to assess status
-Per oncology, further treatment of lung cancer TBD
-Repeat CXR today.
# Recurrent prostatitis
# E. coli UTI
-Doxycycline for 6 weeks for prostatitis
-ID following
# Sepsis secondary to right-sided prostate abscess
prostate ultrasound 07/05/2024 noted 1.4 cm focal hypoechoic lesion in the right mid peripheral zone of the prostate gland.
Pelvic MRI 07/10/2024 1.8 x 1.3 x 1.1 cm peripherally enhancing focus within the posterior lateral right peripheral zone in the mid/apical aspect of the gland which is most likely likely an abscess.
IR was consulted for aspiration, they deemed not easily accessible hence would not proceed
-Urology following.
-s/p TUR unroofing of prostatic abscess + TURP on Sunday 07/15 after Plavix/Eliquis washout
-started CBI, continue per urology
-keep 3-way catheter with eventual plan for outpatient TOV in 7-10 days
#Aspiration pneumonia suspected
-Chest x-ray 07/09/2024 increase in reticulonodular more confluent areas of parenchymal opacity within both lungs, greater on the left compared to the right. The appearance is highly suggestive of bilateral pneumonia.
-ID input appreciated,
-QTc>500, switched moxifloxacin to ertapenem (D7)
-Could not tolerate VSE due to inability to sit up long enough from hypoxia
-Repeat CXR today
# generalized weakness/fall
# Orthostatic hypotension
-Continue midodrine/Florinef for orthostasis
-cont abdominal binder
-PT/OT recc SNF
-cosyntropin STIM test without adrenal insufficiency
-Flomax and Ranexa stopped without improvement in orthostasis
# Relapsing Eosinophilia
-follow eosinophilia, possibly due to cephalosporins, less likely amiodarone which he has been off of since last admission, previously felt eosinophilia relapsing prior to restarting keytruda based on outpatient records
-Continue ertapenem Day 7.
-ID following
# anemia of chronic disease
-Stable hemoglobin with no evidence of bleeding
-Monitor hemoglobin level
# CKD stage 3b
-SCr today at 1.4, currently at baseline
# Type 2 DM
-cover with sliding scale
-Lantus 10 u HS
# Lung cancer of left lobe, squamous cell carcinoma
Primary oncologist is Dr. Shin
s/p SBRT, completed carbo/taxol 04/17/2024, was on Keytruda
spoke with Dr. Shin, needs PET at [facility] where his other scans are.
# Chronic diastolic congestive heart failure
-holding torsemide
-Off Ranexa due to orthostatic hypotension
# Paroxysmal AFib
# CAD s/p CABG KINCAID-LAD 04/2015. PCI LM and LCX 06/2015; 09/2022 post cath with patent KINCAID to LAD and stent and no new obstructive CAD
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
-Eliquis 2.5 mg twice daily, Plavix 75 mg daily , both medication on hold. Plan to resume Eliquis Jul 18
-ASA added while off Eliquis and Plavix.
apprec cards
# BPH
Off Flomax due to orthostatic hypotension
cont finasteride
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
# Hypercholesterolemia
Continue Crestor
DVT ppx: off Eliquis periop. will resume 07/18
Code Status: Full code
Anticipated Discharge: > 48 hours
Subjective/Interval History
-
Patient seen at bedside. Reports mild cough. Complains of fatigue. Denies chest pain, shortness of breath.
Objective Data
-
Labs:
Laboratory Results
07/16/24
04:44
WBC 18.7 H
Hgb 9.6 L
Hct 30.0 L
Plt Count 399 D
Sodium 137
Potassium 4.6
Chloride 99
Carbon Dioxide 31 H
BUN 36 H
Creatinine 1.4 H
Glucose 96
Calcium 10.7 H
Vital Signs:
Vital Signs
Temp Pulse Resp BP Pulse Ox
98.3 F 80 20 143/75 95
07/16/24 07:47 07/16/24 07:47 07/16/24 07:47 07/16/24 07:47 07/16/24 07:47
I&O
07/15/24 07/16/24 07/17/24
06:59 06:59 06:59
Intake Total 670 / 670
Output Total 225 / 225 1750 / 1750
Balance -225 / -225 -1080 / -1080
Review of Systems
-
All other systems: Reviewed and negative (except as documented)
Physical Exam
-
General: Appears Chronically Ill
Respiratory: Crackles and Non Labored Respirations; Negative Wheezes
Cardiac: S1/S2
GI: Soft, Nontender, Nondistended and Other (3-way catheter in place )
--- NOTE | 2024-07-16 09:29 | W.PN.CARDCBS ---
Addendum entered and electronically signed by Varghese Negron DO 07/16/24 12:12:
I saw and examined the patient.
The Professor Of Social Work's note was reviewed and I agree with the note.
Comment:
Plan:
Tentative plan to resume Eliquis AM Jul 18 as per urology if continues to improve
Eventual transition to Eliquis with Plavix
Stable cv status
Cont post op care
HR and bp stable. Pt has struggled with significant orthostasis despite midodrine 10mg TID and Florinef 0.2 mg daily. Flomax and Ranexa stopped without improvement in orthostasis.
-Cosyntropin stim test did not show adrenal insufficiency
Know h/o paroxysmal Afib.
Amiodarone previously stopped due to eosinophilia
Appears euvolemic
Follow up arranged
Addendum entered and electronically signed by Rebecca Galloway PA-C 07/16/24 11:50:
Discussed with urology. Plan to tentatively resume Eliquis in AM 07/18. Eventually transition aspirin to Plavix.
Original Note:
Today's Communication / Plan
-
Follow BPs
Resume Eliquis and plavix once safe post TURP
Follow up arranged
Impression / Plan
-
PCP: Dr. Villa
Inside Contractor Sales: Dr. Blackburn
Impression:
Presented 07/02/2024 w/ weakness/fatigue/fall
Acute hypoxemic respiratory failure
UTI, prostate abscess by MRI 07/10/24
s/p TURP, unroofing of abscess 07/15/2024
Chest pain, chronic
Chronic HFpEF
Elevated Troponin
Orthostatic hypotension
Paroxysmal atrial fibrillation
Hypereosinophilia
abnormal CXR 05/25/24
Chronic Eliquis anticoagulation, off Amio due to eosinophilia
CAD
urgent CABGx1 KINCAID-LAD (VF/VT arrest) 04/2015
PCI LM and LCx 06/2015
s/p cath with patent KINCAID-LAD and stents, non new occlusive disease 10/22/22
currently managed with Plavix, Eliquis, Crestor, Ranexa (Ranexa stopped 06/2024 due to orthostasis)
Non-small cell lung cancer s/p radiation 11/2022 currently on Carbo/Taxol, Pembrolizumab
h/o VT/VF arrest in 2014 in the setting of left main stenosis
COPD/Emphysema
PVD - fem bypass and [employer] LCF 2016
CEA B/L 2018
AAA 3.2cm
CKD 3a
HTN
HLD
KIM
RBBB
DM2
Former smoker
Echo 10/22/2022�EF 65 to 70%.� Mild MR.� Aortic valve gradients 20/8 mmHg peak/mean consistent with mild aortic valve stenosis.� Trace TR with PA pressure 30 to 35 mmHg
Echo 11/28/2023: EF 50-55%, akinesis of the basal inferior wall, mild w/ peak/mean gradients 19/10 mmHg
Cardiac cath: 10/22/2022: stable CAD with prior left main to left circumflex stent patent, chronic total occlusion RCA, patent KINCAID to LAD, elevated LVEDP.
Plan:
-Presented with weakness, fatigue, and UTI. Found to have prostate abscess by MRI 07/10. He is now s/p TURP 07/15/2024 w/ unroofing of abscess.
-Eliquis and Plavix remain on hold after TURP 07/15, on aspirin 81mg daily. Once safe from a surgical standpoint, would transition back to Eliquis and Plavix
-He has had chronic chest pain. Cath 09/2022 with stable CAD as noted above. Trop has not been significantly elevated this admission. Chest pain may be related to lung cancer.
-Has struggled with significant orthostasis despite midodrine 10mg TID and Florinef 0.2 mg daily. Flomax and Ranexa stopped without improvement in orthostasis.
-Cosyntropin stim test did not show adrenal insufficiency
-Know h/o paroxysmal Afib. Amiodarone previously stopped due to eosinophilia
-No evidence of acute HF this admission. Patient was taking torsemide 10 mg daily PRN weight gain prior to admission.
-Cannot take BB due to orthostasis, has had angioedema on ZACHARY inhibitors in the past.
-Follow up arranged
Progress Note - [employer]
Subjective
Date of Service: July 16, 2024
Denies any chest pain this AM. Only complaint is that he is 'tired'.
Objective
Labs:
07/16/24 04:44
07/16/24 04:44
Labs
Hgb 9.6 g/dL (13.0-18.0) L 07/16/24 04:44
Hct 30.0 % (39.0-52.0) L 07/16/24 04:44
Plt Count 399 10^3/uL (130-400) D 07/16/24 04:44
Sodium 137 mmol/L (135-145) 07/16/24 04:44
Potassium 4.6 mmol/L (3.5-5.1) 07/16/24 04:44
BUN 36 mg/dl (9-20) H 07/16/24 04:44
Creatinine 1.4 mg/dL (0.7-1.3) H 07/16/24 04:44
Glucose 96 mg/dl (70-99) 07/16/24 04:44
Troponins
07/13/24 07/13/24 07/13/24
15:10 15:30 23:28
Troponin I Cancelled 0.036 H* 0.040 H*
07/14/24
06:35
Troponin I 0.039 H*
Vital Signs and I&O:
Vital Signs
Temp Pulse Resp BP Pulse Ox
98.3 F 80 20 143/75 95
07/16/24 07:47 07/16/24 07:47 07/16/24 07:47 07/16/24 07:47 07/16/24 07:47
Vital Signs
Temp Pulse Resp BP Pulse Ox
98.3 F 80 20 143/75 95
07/16/24 07:47 07/16/24 07:47 07/16/24 07:47 07/16/24 07:47 07/16/24 07:47
Intake & Output
07/14/24 07/15/24 07/16/24 07/17/24
06:59 06:59 06:59 06:59
Intake Total 1200 / 1200 670 / 670
Output Total 650 / 650 225 / 225 1750 / 1750
Balance 550 / 550 -225 / -225 -1080 / -1080
Physical Exam
Physical Exam
GEN: AAOx3
HEENT: mmm
LUNGS: No audible wheeze
CV: Reg, S1/S2, 1/6 syst murmur
EXT: No clubbing, cyanosis, or edema
NEURO: Gross non-focal
SKIN: Warm, dry, no rash
--- NOTE | 2024-07-16 11:06 | W.PN.ID1 ---
Date of Service
Date of Service: July 16, 2024
Today's Communication
- stop ertapenem completed a 7 day course
- start prednisone 60 mg PO qday (also note fludrocortisone) - likely taper over 6 weeks if responding
- add famotidine
- follow clinically
c/w doxycycline
Assessment / Plan
Relapsing Eosinophilia
- further progression of eosinophilia
- had chest pain but no evidence of FL or pericarditis
- recheck CXR - 2 view - persistent marked infiltrates
- recheck LFTs - normal
- stop ertapenem completed a 7 day course
- start prednisone 60 mg PO qday (also note fludrocortisone) - likely taper over 6 weeks if responding
- add famotidine
- follow clinically
Suspected Aspiration Pneumonia
Leukocytosis, borderline fever, persistent hypoxemia
- CXR - progression of L lung infiltrates on my read - coughing and choking
- completed 7 day course of ertapenem and stopped
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
- for TURP and removal of abscess today
- continue doxycycline currently plan 6 week total course (07/02-08/12)
AW
Chief Complaint
-: Other (prostatitis, eosinophilia)
Subjective / Review of Systems
afebrile
bp stable
tolerated TURP well
Vital Signs / Physical Exam
Vital Signs
Vital Signs
Temp Pulse Resp BP Pulse Ox
98.3 F 80 20 143/75 95
07/16/24 07:47 07/16/24 07:47 07/16/24 07:47 07/16/24 07:47 07/16/24 07:47
Physical Exam
Constitutional: No Acute Distress
Cardiovascular: Regular Rate and S1/S2; Negative Murmur or Rub
Pulmonary: Clear and Symmetric; Negative Wheezes or Rales
Gastrointestinal: Soft, Non Tender, Non Distended and Normal Bowel Sounds
Skin: Warm and Dry; Negative Rash or Jaundice
Objective Data
Lab Data
Lab Results
07/16/24 04:44
07/16/24 04:44
Estimated Creat Clear 44 ml/min 07/16/24 04:44
Total Bilirubin 0.2 mg/dl (0.2-1.3) 07/07/24 08:18
AST 15 U/L (17-59) L 07/07/24 08:18
ALT < 10 U/L (0-50) 07/07/24 08:18
Alkaline Phosphatase 60 U/L (38-126) 07/07/24 08:18
Most recent labs reviewed.
Micro Results:
07/15/24 09:20 Wound Culture - Pending
Abscess Gram Stain - Preliminary
07/15/24 09:20 Anaerobic Culture - Pending
Abscess
07/09/24 15:26 Influenza Types A & B (MARY) - Final
Nasal Swab Negative for Influenza A & B, NAAT
Negative results must be combined with clinical observations
and patient history.
Nucleic Acid Amplification test (NAAT)performed on the
[employer] platform.
07/02/24 13:56 Urine Culture - Final
Urine Escherichia coli
07/02/24 22:19 MRSA Screen - Final
Nose No Methicillin Resistant Staphylococcus aureus isolated.
Pelvis MRI-07/10/2024 -
1.8 x 1.3 x 1.1 cm peripherally enhancing, T2 hyperintense focus within the posterior lateral right peripheral zone in the mid/apical aspect of the gland which is most likely likely an abscess. This appears to correlate with the abnormality seen on
recent ultrasound. Mild BPH changes.
There are numerous diverticuli along the posterior aspect of the urinary bladder which measure up to 2.4 cm. There is additional prominent trabeculations of the urinary bladder. Findings are likely sequelae of chronic outlet obstruction.
Chest x-ray-07/09/2024-
Interval increase in reticulonodular more confluent areas of parenchymal opacity within both lungs greater on the left compared to the right appearance is highly suggestive of bilateral pneumonia.
Prostate ultrasound-07/05/2024-
1.4 cm focal hypoechoic lesion in the right mid peripheral zone of the prostate gland. Diagnostic possibilities include 1 abscess given the history of prostatitis 2 complex cyst [address]-07/03/2024-
Left upper lobe mass compatible with carcinoma. Since prior CT of November 26, 2023, evidence for interval increase of extension of the mass into the left side of the mediastinum.
Nodular parenchymal opacities within both lower lobes have increased compared to prior CT examination, morphologic appearance most suggestive of pneumonia.
Interval improvement in reticulonodular and ground glass opacities within both upper lungs, mainly within the upper lobes, suggesting improvement in pneumonia and/or lymphangitic spread of carcinoma.
Minimal bilateral posterior pleural effusions.
Chest x-ray-07/02/2024-
Again seen are diffusely increased interstitial opacities bilaterally with more confluent appearance within the left apical and basilar segments. No new areas of airspace disease. No pleural effusions or pneumothorax.
[2024-07-16] MEDS: ProAmatine 10 MG PO ×2 (11:40→18:27)
[2024-07-16 12:08] LABS: Glucose - Point of Care 124 mg/dl (70-99)
--- NOTE | 2024-07-16 12:46 | W.PN.PUL3 ---
Today's Communication / Plan
-
Wean oxygen
Continue nebulized therapy, aspiration precautions
Patient remains on doxycycline
Treatment for adrenal insufficiency noted
Intermittent chest x-ray, will order for 07/17
Ongoing discussion regarding CODE STATUS
Assessment
-
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 He was also hypoxic at the halfway. He was
found to have a UTI and was admitted to the hospitalist service and started on antibiotics. ID consulted and a transrectal prostate ultrasound was performed on 07/05/2024 showing a 1.4 cm focal hypoechoic lesion in the right mid peripheral zone of
the prostate gland. Subsequent pelvic MRI on 07/10/2024 showed concern for a prostate abscess. Urology consulted and he is now awaiting either percutaneous drainage via IR versus surgery. He has remained on oxygen throughout this hospital course
with worsening O2 requirements since the evening of 07/09. Pulmonary service now consulted for preoperative stratification for prostate drainage of suspected abscess.
Chronic conditions [employer]: MICHEAL SCC s/p SBRT (11/2022) with progression via PET/CT in July 2023 s/p chemoimmunotherapy in October 2023 with Keytruda + carbo/Taxol, A-fib on Eliquis, CAD s/p CABG, history of VT/VF arrest (04/2015), COPD/emphysema,
former tobacco smoker, hypertension, hyperlipidemia, DM type II, BPH, RBBB, PVD s/p vein stripping + fem bypass (2019), bilateral CEA, CKD, history of aortic aneurysm
Impression:
#Sepsis without shock due to right-sided prostate abscess, UTI + pneumonia
#Suspected bilateral pneumonia vs post-obstructive MICHEAL PNA in setting of bilateral lymphangitic carcinomatosis; component of aspiration pneumonia is suspected
#Mediastinal lymphadenopathy seen on CT chest from 07/03/2024, likely due to known MICHEAL lung cancer
#Recurrent UTI/bacterial prostatitis due to E. coli (R=cipro)
#Hx of MICHEAL NSCLC (SCC) with recurrence with Hx of SBRT (11/2022) and chemoimmunotherapy with keytra, carbo/taxol
#Acute respiratory failure with hypoxia on supplemental oxygen due to above
#Anemia (baseline Hb 8-10g/dL)
#Hypereosinophilic syndrome
#Hypochloremic, hyponatremia
#CKD (baseline Cr 1.3)
#DM type II c/b hyperglycemia (HbA1c: 8 on 07/03/2024)
#Hypoalbuminemia due to poor nutritional status
#Orthostatic hypotension
#COPD/emphysema not on inhalers as an outpatient
#Former tobacco smoker
Plan:
At this time, patient appears to be comfortable
Decreased breath sounds on exam noted, few crackles left side. No use of accessory muscles
Urology and cardiology correspondence reviewed
Continuous bladder irrigation noted
Moving forward
Continue with supportive care
Presently on 6 L, wean as able
Chest x-ray 07/09 with extensive interstitial changes, left greater than right
Weaned down to 5 L or less if able
Incentive spirometry encouraged
Mucus clearing devices if needed
Aspiration precautions
Speech therapy evaluation
Video swallow when able-could not tolerate due to inability to sit up long enough
DuoNebs and budesonide continue
CT chest from 07/03/2024 shows suspected local recurrence of known MICHEAL lung cancer with residual reticular nodular opacities, bilateral nodular opacities and bilateral upper lobe intralobular septal thickening with concern for lymphangitic
carcinomatosis; he also has small bilateral pleural effusions with differential including malignant effusion, acute decompensated heart failure vs parapneumonic.
Peripheral eosinophilia noted-unclear etiology possibly medication induced
IgE level greater than 14k
Recommend follow-up with hematology/oncology as outpatient
Infectious disease following
Antibiotics continue for aspiration pneumonia and prostatitis-ertapenem now in addition to doxycycline-will continue for 6 weeks
Urology following-correspondence reviewed
Plavix washout-intermediate to high risk procedure from a pulmonary perspective for TURP
The patient's ARISCAT score is low for postoperative pulmonary complications (1.6% risk of in-hospital post-op pulmonary complications (composite including respiratory failure, respiratory infection, pleural effusion, atelectasis, pneumothorax,
bronchospasm, aspiration pneumonitis)
Tolerated 07/15/2024 surgery well with spinal anesthesia and sedation
Status post TUR unroofing of prostatic abscess, TURP and complicated catheter placement over guidewire due to posterior pocket from resected abscess cavity 07/15/2024
Cosyntropin stim test noted
Continues on midodrine and Florinef
Cardiology following-correspondence reviewed
Diuresis as tolerated
Monitor renal function, electrolytes, intake/output, lower extremity edema and weight
Replace electrolytes as needed
Lung cancer likely with recurrence-currently on Keytruda.
Continue to follow-up with oncology after discharge.
DVT prophylaxis-on Eliquis-on hold for procedure
Strongly recommend discussion regarding CODE STATUS given multiple comorbidities. This will be an ongoing discussion
Outpatient follow-up will be arranged with our office given last visit on 04/03/[address] with VJ Wild and Dr Melgar

Data:
Pelvis MRI w + w/o contrast 07/10/2024:
1.8 x 1.3 x 1.1 cm peripherally enhancing, T2 hyperintense focus within the posterior lateral right peripheral zone in the mid/apical aspect of the gland which is most likely likely an abscess. This appears to correlate with the abnormality seen on
recent ultrasound.
Mild BPH changes.
There are numerous diverticuli along the posterior aspect of the urinary bladder which measure up to 2.4 cm. There is additional prominent trabeculations of the urinary bladder. Findings are likely sequelae of chronic outlet obstruction.
[place] diverticulosis.
CT Chest w/o contrast 07/03/2024:
Left upper lobe mass compatible with carcinoma. Since prior CT of November 26, 2023, evidence for interval increase of extension of the mass into the left side of the mediastinum.
Nodular parenchymal opacities within both lower lobes have increased compared to prior CT examination, morphologic appearance most suggestive of pneumonia.
Interval improvement in reticulonodular and groundglass opacities within both upper lungs, mainly within the upper lobes, suggesting improvement in pneumonia and/or lymphangitic spread of carcinoma.
Minimal bilateral posterior pleural effusions.
Total time spent today was 77 minutes for this encounter. Time includes reviewing laboratory test/imaging results, reviewing pertinent medical records, obtaining and reviewing medical history, performing an appropriate exam, ordering medications,
tests and procedures. Time also includes documentation of this encounter, coordinating patient care and communicating with other healthcare professionals. Total time does not include separately billed tests performed on this date of service.
Subjective Data
-
Date of Service:
Date of Service: July 16, 2024
Chief Complaint: Pulmonary Follow Up and Dyspnea Follow Up
Subjective:
Patient is without complaints. He has mild dry cough, no hemoptysis. He denies chest pain, shortness of breath, nausea. Remains on 6 L
Objective Data
Data Reviewed
Vital Signs / I&O / Oxygen:
Vital Signs
Temp Pulse Resp BP Pulse Ox
98.3 F 77 20 83/63 95
07/16/24 11:40 07/16/24 11:40 07/16/24 11:40 07/16/24 11:40 07/16/24 11:40
Intake and Output
07/15/24 07/16/24 07/17/24
06:59 06:59 06:59
Intake Total 670 / 670
Output Total 225 / 225 1750 / 1750
Balance -225 / -225 -1080 / -1080
SaO2 95
Nasal Cannula flow liters per 6
minute
Physical Exam
General: Comfortable
HEENT: Normocephalic, Anicteric and Other (Dry mucosa)
Cardiovascular: S1-S2, Regular Rhythm, Murmur (n) and Rub (n)
Respiratory: Wheeze (n), Crackles (Few at base, left greater than right), Non-Labored Respirations and Stridor (n)
GI: Soft, Non Distended and Non Tender
Neurology: Awake, Alert and No Motor Deficits (Generally weak)
Skin: Warm, Good Color, Cyanosis (n) and Jaundice (n)
Labs/Micro/Reports
Lab Data
07/16/24 04:44
07/16/24 04:44
Microbiology
07/15/24 09:20 Abscess Anaerobic Culture - Preliminary
Culture pending. Anaerobic cultures are examined after 3
days incubation. Additional information to follow.
07/15/24 09:20 Abscess Wound Culture - Preliminary
No growth
07/15/24 09:20 Abscess Gram Stain - Preliminary
[2024-07-16 12:52] LABS: ALT (SGPT) < 10 U/L (0-50); AST (SGOT) 17 U/L (17-59); Albumin 2.2 g/dl (3.5-5.0); Alkaline Phosphatase 83 U/L (38-126); Direct Bilirubin 0.3 mg/dl (0.0-0.4); Total Bilirubin 0.3 mg/dl (0.2-1.3); Total Protein 5.9 g/dl (6.3-8.2)
--- NOTE | 2024-07-16 16:40 | CM ---
PT OT indicate SNF need at dc.
Only [facility] is interested with bed.Spoke with pt he said he will not go to a SNF unless it is 5 star.
On new oxygen increased to 6 liter Pox 95%.
Pt sleeping on CM rounds.
Will need additional SNF requests. Pt given [facility] data to pick additional SNF.
PLAN To SNF when medically ready
[2024-07-16 16:58] LABS: Glucose - Point of Care 99 mg/dl (70-99)
[2024-07-16] MEDS: PEPCID 20 MG PO (17:11)
[2024-07-16] MEDS: DELTASONE 50 MG PO (17:12)
[2024-07-16] MEDS: DELTASONE 10 MG PO (17:14)
[2024-07-16 21:14] LABS: Glucose - Point of Care 169 mg/dl (70-99)
[2024-07-16] MEDS: LANTUS 0.1 UNITS SC (22:37)
[2024-07-17] VITALS (8 sets, daily range): BP systolic 138–183; BP diastolic 65–85; PULSE 71–72
[2024-07-17 04:32] LABS: % Basophils 0.3 % (0-2); % Immature Granulocytes 0.7 % (0-0.5); % Lymphocytes 5.5 % (20.5-51.1); % Monocytes 1.6 % (1.7-9.3); % Neutrophils 91.9 % (42.2-75.2); Absolute Immature Granulocytes 0.1 10^3/uL (0-0.05); Absolute Lymphocytes 0.7 10^3/uL (1.2-3.4); Absolute Monocytes 0.2 10^3/uL (0.1-0.6); Absolute Neutrophils 11.8 10^3/uL (1.4-6.5); Hematocrit 28.7 % (39.0-52.0); Hemoglobin 9.3 g/dL (13.0-18.0); Mean Corp Hgb Conc. 32.4 g/dL (33.0-37.0); Mean Corpuscular Hgb 28.9 pg (27.0-31.0); Mean Corpuscular Volume 89.1 fL (80.0-94.0); Nucleated Red Blood Cells % 0 % (-); Platelet Count 314 10^3/uL (130-400); Red Blood Cell Count 3.22 10^6/uL (4.70-6.10); White Blood Cell Count 12.8 10^3/uL (4.8-10.8)
[2024-07-17 04:56] LABS: ALT (SGPT) 11 U/L (0-50); AST (SGOT) 17 U/L (17-59); Albumin 2.3 g/dl (3.5-5.0); Alkaline Phosphatase 92 U/L (38-126); Blood Urea Nitrogen 47 mg/dl (9-20); Carbon Dioxide 28 mmol/L (22-30); Chloride 100 mmol/L (98-107); Estimated Creatinine Clearance 36 ml/min; Glucose 201 mg/dl (70-99); Magnesium 2.5 mg/dl (1.6-2.3); Potassium 4.9 mmol/L (3.5-5.1); Sodium 137 mmol/L (135-145); Total Bilirubin 0.3 mg/dl (0.2-1.3); Total Protein 6.3 g/dl (6.3-8.2); eGFR 39.75
--- NOTE | 2024-07-17 07:20 | W.PN.HOSP.TC ---
Addendum entered and electronically signed by Cinthya Najera MD 07/17/24 15:41:
I saw and evaluated the patient independently. I reviewed the resident�s note and agree with findings and plan as documented by Dr. Tyler.
GENERAL: chronically ill appearing, deconditioned male in no apparent distress
HEENT: NC/AT--O2 NC now up to 6 L
HEART: regular rate and rhythm, +S1, +S2
LUNGS : clear to auscultation bilaterally
ABDOM: soft, nontender, nondistended, + bowel sounds
EXT: no cyanosis, clubbing, or edema
NEUROLOGIC: sleepy
: chen with CBI
need to have GOC discussion with patient and family given severe orthostatic hypotension and presumed progressive lung cancer--instead of 3 PM today, will be tomorrow
Acute hypoxemic respiratory failure likely from progression of lung cancer--apprec heme/pulm--O2 up to 6L--recheck CXR slightly worse--CT chest 07/03/2024 with interval increase of extension of the mass into the left side of the
mediastinum--outpatient PET to assess status if makes it that far
sepsis due to Recurrent E. coli prostatitis with UTI--apprec ID--doxycycline for 6 weeks plus ertapenem--w/u revealed prostate abscess (prostate ultrasound 07/05/2024 noted 1.4 cm focal hypoechoic lesion in the right mid peripheral zone of the
prostate gland--Pelvic MRI 07/10/2024 1.8 x 1.3 x 1.1 cm peripherally enhancing focus within the posterior lateral right peripheral zone in the mid/apical aspect of the gland which is most likely likely an abscess. IR was consulted for aspiration,
they deemed not easily accessible hence would not proceed)--apprec urology--s/p TURP with unroofing the abscess--cont chen and CBI as per urology
Aspiration pneumonia suspected-- VSE reviewed and diet continued---apprec ID--now on Ertapenem due to long QT
Severe Orthostatic hypotension with generalized weakness/fall --cannot use teds due to leg grafts--cont abdominal binder--cosyntropin STIM test without adrenal insufficiency--ranexa and flomax stopped--midodrine and florinef started
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
elevated--ID started prednisone (curiously his supine BP improved)--cont ertapenem
anemia of chronic disease--Stable hemoglobin with no evidence of bleeding
CKD stage 3b--SCr today at 1.4, currently at baseline
Type 2 DM--cover with sliding scale--Lantus 10 u HS
Lung cancer of left lobe, squamous cell carcinoma--s/p SBRT, completed carbo/taxol 04/17/2024, was on Keytruda--Dr. Najera spoke with Dr. Shin 2 weeks ago, needs PET at [facility] where his other scans are.
Chronic diastolic congestive heart failure--holding torsemide--Off Ranexa due to orthostatic hypotension
Paroxysmal AFib/CAD s/p CABG KINCAID-LAD 04/2015. PCI LM and LCX 06/2015; 09/2022 post cath with patent KINCAID to LAD and stent and no new obstructive CAD/History of VT/VF cardiac arrest 04/2015 underwent urgent CABG as above--due to procedures--Eliquis to
resume 07/18--plavix on hold-ASA added while off Eliquis and Plavix--apprec cards
BPH--cont finasteride
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
Hypercholesterolemia--Continue Crestor
DVT proph-- off Eliquis-- will resume 07/18
Code Status: Full code
Original Note:
Today's Communication/Plan
-
.
Assessment / Plan
Assessment / Plan
Assessment/Plan
# Acute hypoxemic respiratory failure likely from progression of lung cancer
-Patient currently on 6L, wean as tolerated.
-CT chest 07/03/2024 with interval increase of extension of the mass into the left side of the mediastinum
-Oncology following. Will likely obtain outpatient PET to assess status
-Per oncology, further treatment of lung cancer TBD
-Repeat CXR 07/17 Unchanged left upper lung mass. Unchanged bilateral patchy airspace consolidation, left worse than right. Minimal left effusion.
# Recurrent prostatitis
# E. coli UTI
-Doxycycline for 6 weeks for prostatitis
-ID following
# Sepsis secondary to right-sided prostate abscess
prostate ultrasound 07/05/2024 noted 1.4 cm focal hypoechoic lesion in the right mid peripheral zone of the prostate gland.
Pelvic MRI 07/10/2024 1.8 x 1.3 x 1.1 cm peripherally enhancing focus within the posterior lateral right peripheral zone in the mid/apical aspect of the gland which is most likely likely an abscess.
IR was consulted for aspiration, they deemed not easily accessible hence would not proceed
-Urology following.
-s/p TUR unroofing of prostatic abscess + TURP on Sunday 07/15 after Plavix/Eliquis washout
-started CBI, continue per urology
-keep 3-way catheter with eventual plan for outpatient TOV in 7-10 days
#Aspiration pneumonia suspected
-Chest x-ray 07/09/2024 increase in reticulonodular more confluent areas of parenchymal opacity within both lungs, greater on the left compared to the right. The appearance is highly suggestive of bilateral pneumonia.
-ID input appreciated,
-Completed ertapenem
-VSE 07/17 with Airway aspiration noted with thin liquids by straw. Speech evaluated. Recommending Regular solids/thin liquids. Aspiration precautions: single cup sips only (no straws), sit upright, slow rate
-Repeat CXR 07/17 Unchanged left upper lung mass. Unchanged bilateral patchy airspace consolidation, left worse than right. Minimal left effusion.
# generalized weakness/fall
# Orthostatic hypotension
-Continue midodrine/Florinef for orthostasis
-cont abdominal binder
-PT/OT recc SNF
-cosyntropin STIM test without adrenal insufficiency
-Flomax and Ranexa stopped without improvement in orthostasis
-On Prednisone 60mg QD started 07/16
# Relapsing Eosinophilia
-follow eosinophilia, possibly due to cephalosporins, less likely amiodarone which he has been off of since last admission, previously felt eosinophilia relapsing prior to restarting keytruda based on outpatient records
-Completed ertapenem. Now on prednisone 60mg PO Qday.
-ID following
# anemia of chronic disease
-Stable hemoglobin with no evidence of bleeding
-Monitor hemoglobin level
# CKD stage 3b
-SCr today at 1.7, baseline 1.4
# Type 2 DM
-cover with sliding scale
-Lantus 10 u HS
# Lung cancer of left lobe, squamous cell carcinoma
Primary oncologist is Dr. Shin
s/p SBRT, completed carbo/taxol 04/17/2024, was on Keytruda
spoke with Dr. Shin, needs PET at [facility] where his other scans are.
# Chronic diastolic congestive heart failure
-holding torsemide
-Off Ranexa due to orthostatic hypotension
# Paroxysmal AFib
# CAD s/p CABG KINCAID-LAD 04/2015. PCI LM and LCX 06/2015; 09/2022 post cath with patent KINCAID to LAD and stent and no new obstructive CAD
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
-Eliquis 2.5 mg twice daily, Plavix 75 mg daily , both medication on hold. Plan to resume Eliquis Jul 18
-ASA added while off Eliquis and Plavix.
apprec cards
# BPH
Off Flomax due to orthostatic hypotension
cont finasteride
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
# Hypercholesterolemia
Continue Crestor
DVT ppx: off Eliquis periop. will resume 07/18
Code Status: Full code
Contacted son yesterday 07/16 to schedule a time for goals of care discussion for today. Initially agreed to come in today at 3pm. In addition, creative manager has had an extensive discussion with the patient and his today regarding his advance
directives.
Contacted son again today 07/17. Per son (Jordan). Plan is to come in tomorrow 07/18 with the rest of the family. They were confused initially, because they thought the discussion has been done with the creative manager Dr Narayanan. Agreeable to come in
tomorrow.
Anticipated Discharge: 24 - 48 hours
Subjective/Interval History
-
Date of Service: July 17, 2024
Objective Data
-
Labs:
Laboratory Results
07/17/24
04:14
WBC 12.8 H
Hgb 9.3 L
Hct 28.7 L
Plt Count 314 D
Sodium 137
Potassium 4.9
Chloride 100
Carbon Dioxide 28
BUN 47 H
Creatinine 1.7 H
Glucose 201 H
Calcium 11.0 H
Total Bilirubin 0.3
AST 17
ALT 11
Alkaline Phosphatase 92
Vital Signs:
Vital Signs
Temp Pulse Resp BP Pulse Ox
97.6 F 65 21 168/68 94
07/17/24 03:20 07/17/24 03:20 07/17/24 03:20 07/17/24 03:56 07/17/24 03:20
I&O
07/16/24 07/17/24 07/18/24
06:59 06:59 06:59
Intake Total 670 / 670 720 / 720
Output Total 1750 / 1750 1100 / 1100 600 / 600
Balance -1080 / -1080 -380 / -380 -600 / -600
Review of Systems
-
All other systems: Reviewed and negative (Except as documented)
Physical Exam
-
General: Appears Chronically Ill
Respiratory: Clear to Auscultation
Cardiac: Regular Rhythm and S1/S2
GI: Soft, Nontender, Nondistended and Normal Bowel Sounds
Genito-urinary: Chen (CHEN WITH CBI)
Musculoskeletal: No Clubbing and No Edema
[2024-07-17] MEDS: DUONEB 3 ML INH (07:23)
[2024-07-17] MEDS: PULMICORT 0.5 MG INH ×2 (07:23→19:27)
--- NOTE | 2024-07-17 07:47 | W.PN.URO.CBU ---
Today's Communication / Plan
-
- Clamp CBI @1200 today
- Maintain 3-way catheter to drainage (maintain on discharge)
- Tentative plan to start Eliquis Wed AM 07/18 (d/w Cardiology)
- IV Ertapenem course completed (7 days) per ID
D/w patient.
D/w Cardiology.
D/w Hospitalist.
Assessment / Plan
-
E. Coli cUTI
Prostatic abscess (confirmed on MRI and intraoperatively)
Recurrent prostatitis
BPH with LUTS
Post Op Day:
07/15: s/p TUR unroofing of prostatic abscess + TURP
Overall very high risk situation - hypoxic respiratory failure and holding of AC/AP therapy (Eliquis/Plavix) for surgery.
Urine output excellent w/o hematuria on minimal drip CBI.
Cr rise to 1.7 from baseline 1.3/1.4 - no post-renal (obstruction) etiology noted.
Diagnosis
-
Date of Service: July 17, 2024
-
Patient Diagnosis:
E. Coli cUTI
Prostatic abscess (confirmed on MRI and intraoperatively)
Recurrent prostatitis
BPH with LUTS
Post Op Day:
07/15: s/p TUR unroofing of prostatic abscess + TURP
Subjective
-
Urine clear in tubing w/ minimal CBI drip.
Notes some urethral discomfort.
Completing nebulizer treatment this morning.
Objective
-
Vital Signs
Temp Pulse Resp BP Pulse Ox
97.6 F 102 14 168/68 94
07/17/24 03:20 07/17/24 07:27 07/17/24 07:27 07/17/24 03:56 07/17/24 07:27
Intake and Output
10/07/17/24 07/18/24
06:59 06:59 06:59
Intake Total 670 / 670 720 / 720
Output Total 1750 / 1750 1100 / 1100 600 / 600
Balance -1080 / -1080 -380 / -380 -600 / -600
Intake:
Oral fluids 360 / 360 720 / 720
IV fluids (Total) 250 / 250
Norm 250 / 250
IV piggybacks 60 / 60
Output:
True Urine Output from CBI 1750 / 1750 1100 / 1100 600 / 600
Laboratory Results
07/17/24 04:14
07/17/24 04:14
Physical Exam
-
General - well developed, well nourished, no acute distress
Chest - supplemental O2
Abdomen - soft, non-tender, non-distended, no CVAT
Genitalia - normal, 22Fr 3-way w/ clear UOP on minimal drip CBI
Skin - warm & dry with no rash
Extremities - no clubbing, no cyanosis, no edema
Care Review
Data Reviewed
Discussed with: Cardiology and Hospitalist
[2024-07-17] MEDS: FLORASTOR 250 MG PO ×2 (08:11→21:03)
[2024-07-17] MEDS: CRESTOR 5 MG PO (08:11)
[2024-07-17] MEDS: VIBRAMYCIN 100 MG PO ×2 (08:11→21:03)
[2024-07-17] MEDS: PEPCID 20 MG PO (08:11)
[2024-07-17] MEDS: VISBIOME 1 CAP PO (08:11)
[2024-07-17] MEDS: FLORINEF 0.2 MG PO (08:11)
[2024-07-17] MEDS: DELTASONE 10 MG PO (08:12)
[2024-07-17] MEDS: ProAmatine 10 MG PO ×2 (08:12→13:08)
[2024-07-17] MEDS: TYLENOL 650 MG PO ×3 (08:12→21:03)
[2024-07-17] MEDS: PROSCAR 5 MG PO (08:12)
[2024-07-17] MEDS: COLACE 100 MG PO (08:12)
[2024-07-17] MEDS: ASPIR LOW (ENTERIC COATED) 81 MG PO (08:12)
[2024-07-17] MEDS: DESENEX/MITRAZOL/ZEASORB 1 APPLIC TOPICAL ×2 (08:13→21:04)
[2024-07-17 08:51] LABS: Glucose - Point of Care 171 mg/dl (70-99)
[2024-07-17] MEDS: NOVOLOG FLEXPEN-LOW RESISTANCE 1 UNITS SC ×2 (08:54→17:40)
[2024-07-17] MEDS: DELTASONE 50 MG PO (09:46)
--- NOTE | 2024-07-17 10:15 | W.PN.CARDCBS ---
Addendum entered and electronically signed by Sekou Amado MD 07/17/24 11:34:
I saw and examined the patient.
The CHURN OPERATOR or PA's note was reviewed and I agree with the note.
Comment: General: Well developed, well nourished in NAD.
Neck: Supple, no JVD, HJR, carotids +2 B/L, no bruits bilaterally.
Heart: Non displaced PMI, RRR, no murmurs, No S3, S4, no rubs.
Lungs: Scattered rhonchi
Extremities: No clubbing, cyanosis or edema bilaterally.
Neuro: Grossly nonfocal, awake, alert and oriented x3.
Stable cardiology status. Resume Eliquis 2.5 mg p.o. twice daily on 07/18 if okay with surgery. Continue aspirin eventual transition to Plavix possibly as an outpatient. Continue midodrine and Florinef for orthostasis.
Original Note:
Today's Communication / Plan
-
Hopeful resumption of Eliquis 2.5 mg twice daily 07/18/2024
Continue aspirin 81 mg for now with eventual transition to Plavix. Can be considered as outpatient
Continue midodrine and Florinef for orthostasis
Outpatient cardiology follow-up has been arranged
Impression / Plan
-
PCP: Dr. Villa
Insurance Verification Specialist: Dr. Blackburn
Impression:
Presented 07/02/2024 w/ weakness/fatigue/fall
Acute hypoxemic respiratory failure
UTI, prostate abscess by MRI 07/10/24
s/p TURP, unroofing of abscess 07/15/2024
Chest pain, chronic
Chronic HFpEF
Elevated Troponin
Orthostatic hypotension
Paroxysmal atrial fibrillation
Hypereosinophilia
abnormal CXR 05/25/24
Chronic Eliquis anticoagulation, off Amio due to eosinophilia
CAD
urgent CABGx1 KINCAID-LAD (VF/VT arrest) 04/2015
PCI LM and LCx 06/2015
s/p cath with patent KINCAID-LAD and stents, non new occlusive disease 10/22/22
currently managed with Plavix, Eliquis, Crestor, Ranexa (Ranexa stopped 06/2024 due to orthostasis)
Non-small cell lung cancer s/p radiation 11/2022 currently on Carbo/Taxol, Pembrolizumab
h/o VT/VF arrest in 2014 in the setting of left main stenosis
COPD/Emphysema
PVD - fem bypass and [employer] LCF 2016
CEA B/L 2018
AAA 3.2cm
CKD 3a
HTN
HLD
KIM
RBBB
DM2
Former smoker
Echo 10/22/2022�EF 65 to 70%.� Mild MR.� Aortic valve gradients 20/8 mmHg peak/mean consistent with mild aortic valve stenosis.� Trace TR with PA pressure 30 to 35 mmHg
Echo 11/28/2023: EF 50-55%, akinesis of the basal inferior wall, mild w/ peak/mean gradients 19/10 mmHg
Cardiac cath: 10/22/2022: stable CAD with prior left main to left circumflex stent patent, chronic total occlusion RCA, patent KINCAID to LAD, elevated LVEDP.
Plan:
-Presented 07/02/2024 with weakness, fatigue, and UTI. Found to have prostate abscess by MRI 07/10. He is now s/p TURP 07/15/2024 w/ unroofing of abscess.
-Eliquis and Plavix remain on hold after TURP 07/15, on aspirin 81mg daily. Per review of Urology note hopefully add back Eliquis on 07/18/24. Will stay on ASA for now instead of Plavix
-He has had chronic chest pain. Cath 09/2022 with stable CAD as noted above. Trop has not been significantly elevated this admission. Chest pain may be related to lung cancer.
-Has struggled with significant orthostasis despite midodrine 10mg TID and Florinef 0.2 mg daily. Flomax and Ranexa stopped without improvement in orthostasis.
-Cosyntropin stim test did not show adrenal insufficiency
-Know h/o paroxysmal Afib. Amiodarone previously stopped due to eosinophilia
-No evidence of acute HF this admission. Patient was taking torsemide 10 mg daily PRN weight gain prior to admission.
-Cannot take BB due to orthostasis, has had angioedema on ZACHARY inhibitors in the past.
-Follow up arranged
Progress Note - Insurance Verification Specialist
Subjective
Date of Service: July 17, 2024
Still with intermittent dizziness/lightheadedness with positional change
Objective
Labs:
07/17/24 04:14
07/17/24 04:14
Labs
Hgb 9.3 g/dL (13.0-18.0) L 07/17/24 04:14
Hct 28.7 % (39.0-52.0) L 07/17/24 04:14
Plt Count 314 10^3/uL (130-400) D 07/17/24 04:14
Sodium 137 mmol/L (135-145) 07/17/24 04:14
Potassium 4.9 mmol/L (3.5-5.1) 07/17/24 04:14
BUN 47 mg/dl (9-20) H 07/17/24 04:14
Creatinine 1.7 mg/dL (0.7-1.3) H 07/17/24 04:14
Glucose 201 mg/dl (70-99) H 07/17/24 04:14
Vital Signs and I&O:
Vital Signs
Temp Pulse Resp BP Pulse Ox
97.5 F 69 14 162/74 93
07/17/24 07:00 07/17/24 08:12 07/17/24 07:27 07/17/24 08:12 07/17/24 08:10
Vital Signs
Temp Pulse Resp BP Pulse Ox
97.5 F 69 14 162/74 93
07/17/24 07:00 07/17/24 08:12 07/17/24 07:27 07/17/24 08:12 07/17/24 08:10
Intake & Output
07/15/24 07/16/24 07/17/24 07/18/24
06:59 06:59 06:59 06:59
Intake Total 670 / 670 720 / 720
Output Total 225 / 225 1750 / 1750 1100 / 1100 600 / 600
Balance -225 / -225 -1080 / -1080 -380 / -380 -600 / -600
Physical Exam
Physical Exam
GEN: No distress, awake, Ox3
HEENT: supple, anicteric, mmm
LUNGS: CTA, no wheezes/rales
CV: Reg, S1/S2, 1/6 syst murmur
ABD: soft, BS+, NT/ND
EXT: No edema, clubbing or cyanosis
NEURO: Gross non-focal
SKIN: No rash, warm, dry, pink
--- NOTE | 2024-07-17 10:30 | PTOTSP ---
Speech Language Pathology
VIDEOFLUOROSCOPIC SWALLOWING EXAMINATION (VSE) completed. Overall, pt with mild pharyngeal dysphagia. No significant pharyngeal residue noted. Responsive aspiration with consecutive straw sips of thin liquids.
Recommend:
(1) Regular solids/thin liquids
(2) Aspiration precautions: single cup sips only (no straws), sit upright, slow rate
(3) Meds 1 at a time whole with liquid if able to take with single cup sip. Otherwise, whole in puree
(4) CLINICAL OPERATIONS CONSULTANT to continue to follow
--- NOTE | 2024-07-17 10:48 | W.PN.ID1 ---
Date of Service
Date of Service: July 17, 2024
Today's Communication
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
- c/w prednisone 60 mg PO qday started 07/16 (also note fludrocortisone) - likely taper over 6 weeks
Assessment / Plan
Relapsing Eosinophilia
KATHARINE
- attribute ongoing pulm infiltrates to eosinophilia
- abrupt drop in AEC to undetectable with addition of steroids, leukocytosis also improving
- CXR - 2 view - persistent marked infiltrates
- recheck LFTs - normal
- stopped ertapenem 07/17 completed a 7 day course
- c/w prednisone 60 mg PO qday started 07/16 (also note fludrocortisone) - likely taper over 6 weeks
- c/w famotidine (PPIs also frequently assc with eosinophilia in my experience)
- 07/15 OR cultures no growth to date consistent with controlled chronic prostatitis - will still need to complete the planned course of antibiotics to prevent relapse
- follow clinically
Resolved Aspiration Pneumonia; persistent pneumonitis likely secondary to eosinphilia
Leukocytosis, borderline fever, persistent hypoxemia
- CXR - progression of L lung infiltrates on my read - coughing and choking
- completed 7 day course of ertapenem and stopped
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
- for TURP and removal of abscess today
- continue doxycycline currently plan 6 week total course (07/02-08/12)
AW
Chief Complaint
-: Other (prostatitis, eosinophilia)
Subjective / Review of Systems
afebrile
bp stable
no events overnight
Vital Signs / Physical Exam
Vital Signs
Vital Signs
Temp Pulse Resp BP Pulse Ox
97.5 F 69 14 162/74 93
07/17/24 07:00 07/17/24 08:12 07/17/24 07:27 07/17/24 08:12 07/17/24 08:10
Physical Exam
Constitutional: No Acute Distress
Cardiovascular: Regular Rate and S1/S2; Negative Murmur or Rub
Pulmonary: Symmetric, Coarse and Non Labored; Negative Wheezes or Rales
Gastrointestinal: Soft, Non Tender, Non Distended and Normal Bowel Sounds
Skin: Warm and Dry; Negative Rash or Jaundice
Objective Data
Lab Data
Lab Results
07/17/24 04:14
07/17/24 04:14
Estimated Creat Clear 36 ml/min 07/17/24 04:14
Total Bilirubin 0.3 mg/dl (0.2-1.3) 07/17/24 04:14
AST 17 U/L (17-59) 07/17/24 04:14
ALT 11 U/L (0-50) 07/17/24 04:14
Alkaline Phosphatase 92 U/L (38-126) 07/17/24 04:14
Most recent labs reviewed.
Micro Results:
07/15/24 09:20 Anaerobic Culture - Preliminary
Abscess Culture pending. Anaerobic cultures are examined after 3
days incubation. Additional information to follow.
07/15/24 09:20 Wound Culture - Preliminary
Abscess No growth
Gram Stain - Preliminary
07/09/24 15:26 Influenza Types A & B (MARY) - Final
Nasal Swab Negative for Influenza A & B, NAAT
Negative results must be combined with clinical observations
and patient history.
Nucleic Acid Amplification test (NAAT)performed on the
[employer] platform.
07/02/24 13:56 Urine Culture - Final
Urine Escherichia coli
07/02/24 22:19 MRSA Screen - Final
Nose No Methicillin Resistant Staphylococcus aureus isolated.
Pelvis MRI-07/10/2024 -
1.8 x 1.3 x 1.1 cm peripherally enhancing, T2 hyperintense focus within the posterior lateral right peripheral zone in the mid/apical aspect of the gland which is most likely likely an abscess. This appears to correlate with the abnormality seen on
recent ultrasound. Mild BPH changes.
There are numerous diverticuli along the posterior aspect of the urinary bladder which measure up to 2.4 cm. There is additional prominent trabeculations of the urinary bladder. Findings are likely sequelae of chronic outlet obstruction.
Chest x-ray-07/09/2024-
Interval increase in reticulonodular more confluent areas of parenchymal opacity within both lungs greater on the left compared to the right appearance is highly suggestive of bilateral pneumonia.
Prostate ultrasound-07/05/2024-
1.4 cm focal hypoechoic lesion in the right mid peripheral zone of the prostate gland. Diagnostic possibilities include 1 abscess given the history of prostatitis 2 complex cyst [address]-07/03/2024-
Left upper lobe mass compatible with carcinoma. Since prior CT of November 26, 2023, evidence for interval increase of extension of the mass into the left side of the mediastinum.
Nodular parenchymal opacities within both lower lobes have increased compared to prior CT examination, morphologic appearance most suggestive of pneumonia.
Interval improvement in reticulonodular and ground glass opacities within both upper lungs, mainly within the upper lobes, suggesting improvement in pneumonia and/or lymphangitic spread of carcinoma.
Minimal bilateral posterior pleural effusions.
Chest x-ray-07/02/2024-
Again seen are diffusely increased interstitial opacities bilaterally with more confluent appearance within the left apical and basilar segments. No new areas of airspace disease. No pleural effusions or pneumothorax.
--- NOTE | 2024-07-17 11:37 | W.PN.PUL3 ---
Today's Communication / Plan
-
No change in steroids
Wean oxygen as able
Aspiration precautions
Anticoagulation hold, to resume at discretion primary service/urology
Ongoing discussion regarding long-term goals of care
Assessment
-
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 He was also hypoxic at the [facility]. He was
found to have a UTI and was admitted to the hospitalist service and started on antibiotics. ID consulted and a transrectal prostate ultrasound was performed on 07/05/2024 showing a 1.4 cm focal hypoechoic lesion in the right mid peripheral zone of
the prostate gland. Subsequent pelvic MRI on 07/10/2024 showed concern for a prostate abscess. Urology consulted and he is now awaiting either percutaneous drainage via IR versus surgery. He has remained on oxygen throughout this hospital course
with worsening O2 requirements since the evening of 07/09. Pulmonary service now consulted for preoperative stratification for prostate drainage of suspected abscess.
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
former tobacco smoker, hypertension, hyperlipidemia, DM type II, BPH, RBBB, PVD s/p vein stripping + fem bypass (2019), bilateral CEA, CKD, history of aortic aneurysm
Impression:
#Sepsis without shock due to right-sided prostate abscess, UTI + pneumonia
#Suspected bilateral pneumonia vs post-obstructive MICHEAL PNA in setting of bilateral lymphangitic carcinomatosis; component of aspiration pneumonia is suspected
#Mediastinal lymphadenopathy seen on CT chest from 07/03/2024, likely due to known MICHEAL lung cancer
#Recurrent UTI/bacterial prostatitis due to E. coli (R=cipro)
#Hx of MICHEAL NSCLC ([facility]) with recurrence with Hx of SBRT (11/2022) and chemoimmunotherapy with keytra, carbo/taxol
#Acute respiratory failure with hypoxia on supplemental oxygen due to above
#Anemia (baseline Hb 8-10g/dL)
#Hypereosinophilic syndrome
#Hypochloremic, hyponatremia
#CKD (baseline Cr 1.3)
#DM type II c/b hyperglycemia (HbA1c: 8 on 07/03/2024)
#Hypoalbuminemia due to poor nutritional status
#Orthostatic hypotension
#COPD/emphysema not on inhalers as an outpatient
#Former tobacco smoker
Plan/recs
At this time, patient appears to be comfortable, but respiratory status remains tenuous, remains on 6 L, 93%
Urology and cardiology correspondence reviewed
Continuous bladder irrigation noted, discontinued
Chest x-ray today with no changes, no improvement in bilateral interstitial changes
In fact, I think chest x-ray have worsened
VSE c/w gross aspiration with thin liquid barium with straw. I reviewed with patient that this significantly increases his risk of aspiration
Moving forward
Continue with supportive care
Presently on 6 L, wean as able. Doubt we will be able to make much more progress with regards to weaning oxygen
Chest x-ray 07/09 with extensive interstitial changes, left greater than right, which I think is worsening
Weaned down to 5 L or less if able
I reviewed with patient at length likely multifactorial causes of progressive interstitial process, nodular disease
Progressive metastatic cancer, lymphangitic spread, chemotherapy induced pneumonitis, aspiration pneumonitis, radiation pneumonitis
With the above, I do not see him improving especially given that he has been on broad-spectrum antibiotics and steroids throughout hospital stay without any clear improvement from a pulmonary standpoint
CT chest from 07/03/2024 shows suspected local recurrence of known MICHEAL lung cancer with residual reticular nodular opacities, bilateral nodular opacities and bilateral upper lobe intralobular septal thickening with concern for lymphangitic
carcinomatosis; he also has small bilateral pleural effusions with differential including malignant effusion, acute decompensated heart failure vs parapneumonic.
Peripheral eosinophilia noted-unclear etiology possibly medication induced
IgE level greater than 14k
Recommend follow-up with hematology/oncology as outpatient
Infectious disease following
Antibiotics continue for aspiration pneumonia and prostatitis-ertapenem now in addition to doxycycline-will continue for 6 weeks
Urology following-correspondence reviewed
Plavix washout-intermediate to high risk procedure from a pulmonary perspective for TURP
The patient's ARISCAT score is low for postoperative pulmonary complications (1.6% risk of in-hospital post-op pulmonary complications (composite including respiratory failure, respiratory infection, pleural effusion, atelectasis, pneumothorax,
bronchospasm, aspiration pneumonitis)
Tolerated 07/15/2024 surgery well with spinal anesthesia and sedation
Status post TUR unroofing of prostatic abscess, TURP and complicated catheter placement over guidewire due to posterior pocket from resected abscess cavity 07/15/2024
Cosyntropin stim test noted
Continues on midodrine and Florinef
Cardiology following-correspondence reviewed
Diuresis as tolerated
Monitor renal function, electrolytes, intake/output, lower extremity edema and weight
Replace electrolytes as needed
Lung cancer likely with recurrence-currently on Keytruda.
Continue to follow-up with oncology after discharge.
DVT prophylaxis-on Eliquis-on hold for procedure
I had an extensive discussion with the patient and his by phone regarding my concern, respiratory status, oxygen requirement
I encouraged him to review his advanced directives. He does not have any. He would like to discuss this with his
If he does not show any improvement in his oxygen requirement in the next 24 to 72 hours, this may be consistent with progressive interstitial pneumonitis, lymphangitic spread with a component of radiation and immunotherapy induced pneumonitis
Strongly recommend discussion regarding CODE STATUS given multiple comorbidities. This will be an ongoing discussion between him and his

Data:
Pelvis MRI w + w/o contrast 07/10/2024:
1.8 x 1.3 x 1.1 cm peripherally enhancing, T2 hyperintense focus within the posterior lateral right peripheral zone in the mid/apical aspect of the gland which is most likely likely an abscess. This appears to correlate with the abnormality seen on
recent ultrasound.
Mild BPH changes.
There are numerous diverticuli along the posterior aspect of the urinary bladder which measure up to 2.4 cm. There is additional prominent trabeculations of the urinary bladder. Findings are likely sequelae of chronic outlet obstruction.
[place] diverticulosis.
CT Chest w/o contrast 07/03/2024:
Left upper lobe mass compatible with carcinoma. Since prior CT of November 26, 2023, evidence for interval increase of extension of the mass into the left side of the mediastinum.
Nodular parenchymal opacities within both lower lobes have increased compared to prior CT examination, morphologic appearance most suggestive of pneumonia.
Interval improvement in reticulonodular and groundglass opacities within both upper lungs, mainly within the upper lobes, suggesting improvement in pneumonia and/or lymphangitic spread of carcinoma.
Minimal bilateral posterior pleural effusions.
Total time spent today was 77 minutes for this encounter. Time includes reviewing laboratory test/imaging results, reviewing pertinent medical records, obtaining and reviewing medical history, performing an appropriate exam, ordering medications,
tests and procedures. Time also includes documentation of this encounter, coordinating patient care and communicating with other healthcare professionals. Total time does not include separately billed tests performed on this date of service.
Subjective Data
-
Date of Service:
Date of Service: July 17, 2024
Chief Complaint: Pulmonary Follow Up and Dyspnea Follow Up
Subjective:
Patient is feeling well. He is fatigued. He denies cough, mopped assist, chest pain. Using incentive spirometry during my evaluation
Objective Data
Data Reviewed
Vital Signs / I&O / Oxygen:
Vital Signs
Temp Pulse Resp BP Pulse Ox
97.5 F 69 14 162/74 93
07/17/24 07:00 07/17/24 08:12 07/17/24 07:27 07/17/24 08:12 07/17/24 08:10
Intake and Output
07/16/24 07/17/24 07/18/24
06:59 06:59 06:59
Intake Total 670 / 670 720 / 720
Output Total 1750 / 1750 1100 / 1100 600 / 600
Balance -1080 / -1080 -380 / -380 -600 / -600
SaO2 93
Nasal Cannula flow liters per 6
minute
Physical Exam
General: Comfortable
HEENT: Normocephalic, Anicteric and Other (Dry mucosa)
Cardiovascular: S1-S2, Regular Rhythm, Murmur (n) and Rub (n)
Respiratory: Wheeze (n), Crackles (Few at base, left greater than right), Non-Labored Respirations and Stridor (n)
GI: Soft, Non Distended and Non Tender
Neurology: Awake, Alert and No Motor Deficits (Generally weak)
Skin: Warm, Good Color, Cyanosis (n) and Jaundice (n)
Labs/Micro/Reports
Lab Data
07/17/24 04:14
07/17/24 04:14
Microbiology
07/15/24 09:20 Abscess Wound Culture - Preliminary
No growth
07/15/24 09:20 Abscess Gram Stain - Preliminary
07/15/24 09:20 Abscess Anaerobic Culture - Preliminary
Culture pending. Anaerobic cultures are examined after 3
days incubation. Additional information to follow.
[2024-07-17 12:26] LABS: Glucose - Point of Care 210 mg/dl (70-99)
[2024-07-17] MEDS: NOVOLOG FLEXPEN-LOW RESISTANCE 2 UNITS SC (13:07)
--- NOTE | 2024-07-17 13:48 | CM ---
Patient seen at bedside with physician. Patient for family meeting later today for goals of care discussion with physicians and family. CM will continue to follow for discharge planning needs.
Plan; pending discussion
--- NOTE | 2024-07-17 16:02 | PTCARENOTE ---
Pt sleeping but easily arousable,alert, oriented x3 when awake. CHUA weakly, still c/o dizziness when HOB elevated. VSS. Telemetry:NSR with BBBC. Maintained on nc 6 lpm- pulse ox 96%,pt with (+)HUERTA/occ non-productive cough. Aspiration prec
maintained. Abd soft, rounded, kelsey PO, appetite fair. Sloan P/O mod amts clear lt curt urine; CBI 's remain clamped. Resting quietly at present. Will continue to monitor.
[2024-07-17 16:39] LABS: Glucose - Point of Care 183 mg/dl (70-99)
[2024-07-17] MEDS: ProAmatine PO (17:38)
[2024-07-17 21:41] LABS: Glucose - Point of Care 204 mg/dl (70-99)
[2024-07-17] MEDS: LANTUS 0.1 UNITS SC (21:50)
[2024-07-18 03:39] VITALS: BP 189/89
[2024-07-18 04:31] LABS: % Basophils 0.1 % (0-2); % Immature Granulocytes 0.7 % (0-0.5); % Lymphocytes 7.6 % (20.5-51.1); % Monocytes 6.7 % (1.7-9.3); % Neutrophils 84.9 % (42.2-75.2); Absolute Immature Granulocytes 0.1 10^3/uL (0-0.05); Absolute Monocytes 0.9 10^3/uL (0.1-0.6); Absolute Neutrophils 11.4 10^3/uL (1.4-6.5); Mean Corp Hgb Conc. 33.3 g/dL (33.0-37.0); Mean Corpuscular Hgb 29.9 pg (27.0-31.0); Mean Corpuscular Volume 89.6 fL (80.0-94.0); Nucleated Red Blood Cells % 0 % (-); Platelet Count 360 10^3/uL (130-400); Red Blood Cell Count 3.35 10^6/uL (4.70-6.10); Red Cell Dist. Width 14.9 % (11.5-14.5); White Blood Cell Count 13.4 10^3/uL (4.8-10.8)
[2024-07-18 04:54] LABS: Blood Urea Nitrogen 58 mg/dl (9-20); Calcium 11.1 mg/dl (8.4-10.2); Carbon Dioxide 29 mmol/L (22-30); Chloride 99 mmol/L (98-107); Estimated Creatinine Clearance 41 ml/min; Glucose 153 mg/dl (70-99); Potassium 4.3 mmol/L (3.5-5.1); Sodium 138 mmol/L (135-145); eGFR 46.19
[2024-07-18 06:00] VITALS: BMI 27.5
[2024-07-18] MEDS: PULMICORT 0.5 MG INH (07:15)
--- NOTE | 2024-07-18 07:41 | W.PN.HOSP.TC ---
Addendum entered and electronically signed by Cinthya Najera MD 07/18/24 17:45:
I saw and evaluated the patient independently. I reviewed the resident�s note and agree with findings and plan as documented by Dr. Tyler.
GENERAL: chronically ill appearing, deconditioned male in no apparent distress
HEENT: NC/AT--O2 NC now up to 5-6 L
HEART: regular rate and rhythm, +S1, +S2
LUNGS : clear to auscultation bilaterally
ABDOM: soft, nontender, nondistended, + bowel sounds
EXT: no cyanosis, clubbing, or edema
NEUROLOGIC: sleepy
: sanchez with CBI
for approx 1 hour had GOC discussion with patient and family given severe orthostatic hypotension and presumed progressive lung cancer, prostate abscess--pt does not want to make ANY decisions until he talks to Dr. Sanchez from vascular as he missed 2
appointments with him due to hospitalization--unfortunately remains full code--pt appears to be hallucinating at times, is confused and delusional at times---may need psych to eval for capacity to make decisions....
Acute hypoxemic respiratory failure likely from progression of lung cancer--apprec heme/pulm--O2 up to 6L--recheck CXR slightly worse--CT chest 07/03/2024 with interval increase of extension of the mass into the left side of the
mediastinum--outpatient PET to assess status if makes it that far--for CT chest tomorrow by pulm
sepsis due to Recurrent E. coli prostatitis with UTI--apprec ID--doxycycline for 6 weeks plus ertapenem--w/u revealed prostate abscess (prostate ultrasound 07/05/2024 noted 1.4 cm focal hypoechoic lesion in the right mid peripheral zone of the
prostate gland--Pelvic MRI 07/10/2024 1.8 x 1.3 x 1.1 cm peripherally enhancing focus within the posterior lateral right peripheral zone in the mid/apical aspect of the gland which is most likely likely an abscess. IR was consulted for aspiration,
they deemed not easily accessible hence would not proceed)--apprec urology--s/p TURP with unroofing the abscess--cont sanchez as per urology
Aspiration pneumonia suspected-- VSE reviewed and diet continued---apprec ID--now on Ertapenem due to long QT
Severe Orthostatic hypotension with generalized weakness/fall --cannot use teds due to leg grafts--cont abdominal binder--cosyntropin STIM test without adrenal insufficiency--ranexa and flomax stopped--midodrine and florinef started
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
elevated--ID started prednisone (curiously his supine BP improved)--cont ertapenem
anemia of chronic disease--Stable hemoglobin with no evidence of bleeding
CKD stage 3b--SCr today at 1.5, currently at baseline
Type 2 DM--cover with sliding scale--Lantus 10 u HS
Lung cancer of left lobe, squamous cell carcinoma--s/p SBRT, completed carbo/taxol 04/17/2024, was on Keytruda--Dr. Najera spoke with Dr. Shin 2 weeks ago, needs PET at [facility] where his other scans are.
Chronic diastolic congestive heart failure--holding torsemide--Off Ranexa due to orthostatic hypotension
Paroxysmal AFib/CAD s/p CABG KINCAID-LAD 04/2015. PCI LM and LCX 06/2015; 09/2022 post cath with patent KINCAID to LAD and stent and no new obstructive CAD/History of VT/VF cardiac arrest 04/2015 underwent urgent CABG as above--due to procedures--Eliquis to
resume 07/18--plavix on hold-ASA added while off Eliquis and Plavix--apprec cards
BPH--cont finasteride
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
Hypercholesterolemia--Continue Crestor
DVT proph-- off Eliquis-- will resume 07/18
Code Status: Full code
Original Note:
Today's Communication/Plan
-
.
Assessment / Plan
Assessment / Plan
Assessment/Plan
# Acute hypoxemic respiratory failure likely from progression of lung cancer
-Patient currently on 6L, wean as tolerated. decrease to 5L today. Keep 02 88-90%
-CT chest 07/03/2024 with interval increase of extension of the mass into the left side of the mediastinum
-Oncology following. Will likely obtain outpatient PET to assess status
-Per oncology, further treatment of lung cancer TBD
-Repeat CXR 07/17 Unchanged left upper lung mass. Unchanged bilateral patchy airspace consolidation, left worse than right. Minimal left effusion.
# Recurrent prostatitis
# E. coli UTI
-Doxycycline for 6 weeks for prostatitis
-ID following
# Sepsis secondary to right-sided prostate abscess
prostate ultrasound 07/05/2024 noted 1.4 cm focal hypoechoic lesion in the right mid peripheral zone of the prostate gland.
Pelvic MRI 07/10/2024 1.8 x 1.3 x 1.1 cm peripherally enhancing focus within the posterior lateral right peripheral zone in the mid/apical aspect of the gland which is most likely likely an abscess.
IR was consulted for aspiration, they deemed not easily accessible hence would not proceed
-Urology following.
-s/p TUR unroofing of prostatic abscess + TURP on Sunday 07/15
#Aspiration pneumonia suspected
-Chest x-ray 07/09/2024 increase in reticulonodular more confluent areas of parenchymal opacity within both lungs, greater on the left compared to the right. The appearance is highly suggestive of bilateral pneumonia.
-ID input appreciated,
-Completed ertapenem
-VSE 07/17 with Airway aspiration noted with thin liquids by straw. Speech evaluated. Recommending Regular solids/thin liquids. Aspiration precautions: single cup sips only (no straws), sit upright, slow rate
-Repeat CXR 07/17 Unchanged left upper lung mass. Unchanged bilateral patchy airspace consolidation, left worse than right. Minimal left effusion.
# generalized weakness/fall
# Orthostatic hypotension
-Continue midodrine/Florinef for orthostasis
-cont abdominal binder
-PT/OT recc SNF
-cosyntropin STIM test without adrenal insufficiency
-Flomax and Ranexa stopped without improvement in orthostasis
-On Prednisone 60mg QD started 07/16
# Relapsing Eosinophilia
-follow eosinophilia, possibly due to cephalosporins, less likely amiodarone which he has been off of since last admission, previously felt eosinophilia relapsing prior to restarting keytruda based on outpatient records
-Completed ertapenem. Now on prednisone 60mg PO Qday.
-ID following
# anemia of chronic disease
-Stable hemoglobin with no evidence of bleeding
-Monitor hemoglobin level
# CKD stage 3b
-SCr today at 1.5, baseline 1.4
# Type 2 DM
-cover with sliding scale
-Lantus 10 u HS
# Lung cancer of left lobe, squamous cell carcinoma
Primary oncologist is Dr. Shin
s/p SBRT, completed carbo/taxol 04/17/2024, was on Keytruda
spoke with Dr. Shin, needs PET at [facility] where his other scans are.
# Chronic diastolic congestive heart failure
-holding torsemide
-Off Ranexa due to orthostatic hypotension
# Paroxysmal AFib
# CAD s/p CABG KINCAID-LAD 04/2015. PCI LM and LCX 06/2015; 09/2022 post cath with patent KINCAID to LAD and stent and no new obstructive CAD
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
-Eliquis 2.5 mg twice daily, Plavix 75 mg daily Plan to resume Eliquis Today
apprec cards
# BPH
Off Flomax due to orthostatic hypotension
cont finasteride
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
# Hypercholesterolemia
Continue Crestor
DVT ppx: Eliquis
Code Status: Full code
Goals of care discussion today at 3pm.
Anticipated Discharge: Within 24 hours
Subjective/Interval History
-
Patient seen and examined at bedside while getting orthostasis done. Patient was confused. Still orthostatic hypotension present. Asymptomatic withOUT complaints of Chest pain, palpitation.
Objective Data
-
Labs:
Laboratory Results
07/18/24
04:14
WBC 13.4 H
Hgb 10.0 L
Hct 30.0 L
Plt Count 360
Sodium 138
Potassium 4.3
Chloride 99
Carbon Dioxide 29
BUN 58 H
Creatinine 1.5 H
Glucose 153 H
Calcium 11.1 H
Vital Signs:
Vital Signs
Temp Pulse Resp BP Pulse Ox
97.4 F 73 19 189/89 93
07/18/24 03:39 07/18/24 03:39 07/18/24 03:39 07/18/24 03:39 07/18/24 03:39
I&O
07/17/24 07/18/24 07/19/24
06:59 06:59 06:59
Intake Total 720 / 720 1080 / 1080
Output Total 1100 / 1100 3550 / 3550
Balance -380 / -380 -2470 / -2470
Review of Systems
-
All other systems: Reviewed and negative (except documented)
Physical Exam
-
General: Appears Chronically Ill
Respiratory: Clear to Auscultation
Cardiac: Regular Rhythm and S1/S2
GI: Soft, Nontender, Nondistended and Normal Bowel Sounds
Genito-urinary: Sanchez
Musculoskeletal: No Clubbing, No Cyanosis and No Edema
Neuro: AO x 3
[2024-07-18 07:53] VITALS: BP 175/86
--- NOTE | 2024-07-18 08:10 | W.PN.URO.CBU ---
Today's Communication / Plan
-
Maintain Sloan catheter to drainage
Plan for catheter change w/ Dr. Tsang in 3-4 weeks (pending clinical course and GOC)
PO doxycycline course per ID
OK to resume Eliquis today (07/18)
D/w Cardiology.
D/w Hospitalist.
Assessment / Plan
-
E. Coli cUTI
Prostatic abscess (confirmed on MRI and intraoperatively)
Recurrent prostatitis
BPH with LUTS
Post Op Day:
07/15: s/p TUR unroofing of prostatic abscess + TURP
Presented as very high risk situation - hypoxic respiratory failure and holding of AC/AP therapy (Eliquis/Plavix) for surgery.
Pulmonology/Cardiology/Anesthesiology clearance obtained preop.
Urine output excellent w/o hematuria postop.
Diagnosis
-
Date of Service: July 18, 2024
-
Patient Diagnosis:
E. Coli cUTI
Prostatic abscess (confirmed on MRI and intraoperatively)
Recurrent prostatitis
BPH with LUTS
Post Op Day:
07/15: s/p TUR unroofing of prostatic abscess + TURP
Subjective
-
Urine clear in tubing.
CBI discontinued yesterday.
Notes minimal urethral discomfort - improved since weekend.
Objective
-
Vital Signs
Temp Pulse Resp BP Pulse Ox
98.1 F 71 20 127/69 95
07/18/24 07:53 07/18/24 07:53 07/18/24 07:53 07/18/24 09:19 07/18/24 07:53
Intake and Output
07/17/24 07/18/24 07/19/24
06:59 06:59 06:59
Intake Total 720 / 720 1080 / 1080
Output Total 1100 / 1100 3550 / 3550
Balance -380 / -380 -2470 / -2470
Intake:
Oral fluids 720 / 720 1080 / 1080
Output:
Urine, Sloan 2099
True Urine Output from CBI 1100 / 1100 1450 / 1450
Laboratory Results
07/18/24 04:14
07/18/24 04:14
Physical Exam
-
General - fatigued, chronically ill-appearing, no acute distress
Abdomen - soft, non-tender, non-distended
Genitalia - normal, 22Fr 3-way catheter draining clear yellow urine
Skin - warm & dry with no rash
Extremities - no clubbing, no cyanosis, no edema
Care Review
Data Reviewed
Discussed with: Cardiology, Hospitalist and Nursing
MRI: Report Pers Reviewed and Image Pers Reviewed
[2024-07-18 08:44] LABS: Glucose - Point of Care 155 mg/dl (70-99)
[2024-07-18] MEDS: ELIQUIS 2.5 MG PO ×2 (08:52→21:31)
[2024-07-18] MEDS: FLORASTOR 250 MG PO ×2 (08:52→21:31)
[2024-07-18] MEDS: PROSCAR 5 MG PO (08:52)
[2024-07-18] MEDS: PEPCID 20 MG PO (08:53)
[2024-07-18] MEDS: COLACE 100 MG PO (08:53)
[2024-07-18] MEDS: DELTASONE 50 MG PO (08:53)
[2024-07-18] MEDS: VIBRAMYCIN 100 MG PO ×2 (08:53→21:32)
[2024-07-18] MEDS: CRESTOR 5 MG PO (08:53)
[2024-07-18] MEDS: FLORINEF 0.2 MG PO (08:53)
[2024-07-18] MEDS: ASPIR LOW (ENTERIC COATED) 81 MG PO (08:53)
[2024-07-18] MEDS: VISBIOME 1 CAP PO (08:53)
[2024-07-18] MEDS: DELTASONE 10 MG PO (08:54)
[2024-07-18] MEDS: TYLENOL 650 MG PO ×3 (08:54→21:32)
[2024-07-18] MEDS: NOVOLOG FLEXPEN-LOW RESISTANCE 1 UNITS SC ×3 (09:02→17:22)
--- NOTE | 2024-07-18 09:02 | W.PN.ID1 ---
Date of Service
Date of Service: July 18, 2024
Today's Communication
unclear cause of eosinophilia, does not seem to be correlating across the last three admissions with medications
given elevated IgE send ancas and aspergillus antibodies, has been on high dose steroids about 48 hours
Assessment / Plan
Relapsing Eosinophilia
KATHARINE
- attribute ongoing pulm infiltrates to eosinophilia
- abrupt drop in AEC to undetectable with addition of steroids, leukocytosis also improving
- IgE markedly elevated sent ANCAs (low sensitivity) and aspergillus IgG and IgE
- stopped ertapenem 07/17 completed a 7 day course
- c/w prednisone 60 mg PO qday started 07/16 (also note fludrocortisone)
- c/w famotidine (PPIs also frequently assc with eosinophilia in my experience)
- 07/15 OR cultures no growth to date consistent with controlled chronic prostatitis (patient on antibiotics over a week before culture obtained) - will still need to complete the planned course of antibiotics to prevent relapse
- eosinophilia has not ultimately correlated with antibiotics, keytruda, or amiodarone use
- follow clinically
Resolved Aspiration Pneumonia; persistent pneumonitis likely secondary to eosinphilia
Leukocytosis, borderline fever, persistent hypoxemia
- CXR - progression of L lung infiltrates on my read - coughing and choking
- completed 7 day course of ertapenem and stopped
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
- for TURP and removal of abscess today
- continue doxycycline currently plan 6 week total course (07/02-08/12)
AW
Chief Complaint
-: Other (prostatitis, eosinophilia)
Subjective / Review of Systems
afebrile
hypertensive
no events overnight
Vital Signs / Physical Exam
Vital Signs
Vital Signs
Temp Pulse Resp BP Pulse Ox
98.1 F 71 20 175/86 95
07/18/24 07:53 07/18/24 07:53 07/18/24 07:53 07/18/24 07:53 07/18/24 07:53
Physical Exam
Constitutional: No Acute Distress
Cardiovascular: Regular Rate and S1/S2; Negative Murmur or Rub
Pulmonary: Clear and Symmetric; Negative Wheezes or Rales
Gastrointestinal: Soft, Non Tender, Non Distended and Normal Bowel Sounds
Skin: Warm and Dry; Negative Rash or Jaundice
Objective Data
Lab Data
Lab Results
07/18/24 04:14
07/18/24 04:14
Estimated Creat Clear 41 ml/min 07/18/24 04:14
Total Bilirubin 0.3 mg/dl (0.2-1.3) 07/17/24 04:14
AST 17 U/L (17-59) 07/17/24 04:14
ALT 11 U/L (0-50) 07/17/24 04:14
Alkaline Phosphatase 92 U/L (38-126) 07/17/24 04:14
Most recent labs reviewed.
IgE level 14K
Micro Results:
07/15/24 09:20 Wound Culture - Preliminary
Abscess No growth
Gram Stain - Preliminary
07/15/24 09:20 Anaerobic Culture - Preliminary
Abscess Culture pending. Anaerobic cultures are examined after 3
days incubation. Additional information to follow.
07/09/24 15:26 Influenza Types A & B (MARY) - Final
Nasal Swab Negative for Influenza A & B, NAAT
Negative results must be combined with clinical observations
and patient history.
Nucleic Acid Amplification test (NAAT)performed on the
[facility] platform.
07/02/24 13:56 Urine Culture - Final
Urine Escherichia coli
07/02/24 22:19 MRSA Screen - Final
Nose No Methicillin Resistant Staphylococcus aureus isolated.
Pelvis MRI-07/10/2024 -
1.8 x 1.3 x 1.1 cm peripherally enhancing, T2 hyperintense focus within the posterior lateral right peripheral zone in the mid/apical aspect of the gland which is most likely likely an abscess. This appears to correlate with the abnormality seen on
recent ultrasound. Mild BPH changes.
There are numerous diverticuli along the posterior aspect of the urinary bladder which measure up to 2.4 cm. There is additional prominent trabeculations of the urinary bladder. Findings are likely sequelae of chronic outlet obstruction.
Chest x-ray-07/09/2024-
Interval increase in reticulonodular more confluent areas of parenchymal opacity within both lungs greater on the left compared to the right appearance is highly suggestive of bilateral pneumonia.
Prostate ultrasound-07/05/2024-
1.4 cm focal hypoechoic lesion in the right mid peripheral zone of the prostate gland. Diagnostic possibilities include 1 abscess given the history of prostatitis 2 complex cyst [address]-07/03/2024-
Left upper lobe mass compatible with carcinoma. Since prior CT of November 26, 2023, evidence for interval increase of extension of the mass into the left side of the mediastinum.
Nodular parenchymal opacities within both lower lobes have increased compared to prior CT examination, morphologic appearance most suggestive of pneumonia.
Interval improvement in reticulonodular and ground glass opacities within both upper lungs, mainly within the upper lobes, suggesting improvement in pneumonia and/or lymphangitic spread of carcinoma.
Minimal bilateral posterior pleural effusions.
Chest x-ray-07/02/2024-
Again seen are diffusely increased interstitial opacities bilaterally with more confluent appearance within the left apical and basilar segments. No new areas of airspace disease. No pleural effusions or pneumothorax.
Care Review
Plan reviewed with: Physician (Dr Narayanan - previous hospitalization and prior medications; Dr Shin - cannot comment on response to keytruda at this time)
[2024-07-18] MEDS: DESENEX/MITRAZOL/ZEASORB 1 APPLIC TOPICAL ×2 (09:19→21:32)
[2024-07-18] MEDS: ProAmatine 5 MG PO ×3 (09:19→17:21)
[2024-07-18 09:27] VITALS: BP 127/69; BP 175/80
--- NOTE | 2024-07-18 10:45 | W.PN.CARDCBS ---
Today's Communication / Plan
-
Eliquis resumed and continues on ASA.
May consider transition from ASA to Plavix as outpt.
He has had chronic chest pain now improved. Cath 09/2022 with stable CAD as noted above. Trop has not been significantly elevated this admission. Chest pain may be related to lung cancer.
Orthostasis improved with midodrine 10mg TID and Florinef 0.2 mg daily. Flomax and Ranexa stopped without improvement in orthostasis.
-Cosyntropin stim test did not show adrenal insufficiency
-Cannot take BB due to orthostasis, has had angioedema on ZACHARY inhibitors in the past.
Known h/o paroxysmal Afib. Amiodarone previously stopped due to eosinophilia
Remains euvolemic. No evidence of acute HF this admission. Patient was taking torsemide 10 mg daily PRN weight gain prior to admission.
Follow up arranged
Please recall if needed.
Impression / Plan
-
.
PCP: Dr. Villa
Juice Packaging Machines Setter: Dr. Blackburn
Impression:
Presented 07/02/2024 w/ weakness/fatigue/fall
Acute hypoxemic respiratory failure
UTI, prostate abscess by MRI 07/10/24
s/p TURP, unroofing of abscess 07/15/2024
Chest pain, chronic
Chronic HFpEF
Elevated Troponin
Orthostatic hypotension
Paroxysmal atrial fibrillation
Hypereosinophilia
abnormal CXR 05/25/24
Chronic Eliquis anticoagulation, off Amio due to eosinophilia
CAD
urgent CABGx1 KINCAID-LAD (VF/VT arrest) 04/2015
PCI LM and LCx 06/2015
s/p cath with patent KINCAID-LAD and stents, non new occlusive disease 10/22/22
currently managed with Plavix, Eliquis, Crestor, Ranexa (Ranexa stopped 06/2024 due to orthostasis)
Non-small cell lung cancer s/p radiation 11/2022 currently on Carbo/Taxol, Pembrolizumab
h/o VT/VF arrest in 2014 in the setting of left main stenosis
COPD/Emphysema
PVD - fem bypass and [employer]UMATIC [employer] [facility] 2016
CEA B/L 2018
AAA 3.2cm
CKD 3a
HTN
HLD
KIM
RBBB
DM2
Former smoker
Echo 10/22/2022�EF 65 to 70%.� Mild MR.� Aortic valve gradients 20/8 mmHg peak/mean consistent with mild aortic valve stenosis.� Trace TR with PA pressure 30 to 35 mmHg
Echo 11/28/2023: EF 50-55%, akinesis of the basal inferior wall, mild w/ peak/mean gradients 19/10 mmHg
Cardiac cath: 10/22/2022: stable CAD with prior left main to left circumflex stent patent, chronic total occlusion RCA, patent KINCAID to LAD, elevated LVEDP.
Plan:
-Presented 07/02/2024 with weakness, fatigue, and UTI. Found to have prostate abscess by MRI 07/10. He is now s/p TURP 07/15/2024 w/ unroofing of abscess.
Eliquis resumed and continues on ASA.
May consider transition from ASA to Plavix as outpt.
He has had chronic chest pain now improved. Cath 09/2022 with stable CAD as noted above. Trop has not been significantly elevated this admission. Chest pain may be related to lung cancer.
Orthostasis improved with midodrine 10mg TID and Florinef 0.2 mg daily. Flomax and Ranexa stopped without improvement in orthostasis.
-Cosyntropin stim test did not show adrenal insufficiency
-Cannot take BB due to orthostasis, has had angioedema on ZACHARY inhibitors in the past.
Known h/o paroxysmal Afib. Amiodarone previously stopped due to eosinophilia
Remains euvolemic. No evidence of acute HF this admission. Patient was taking torsemide 10 mg daily PRN weight gain prior to admission.
Follow up arranged
Please recall if needed.
Progress Note - Juice [employer] Setter
Subjective
Date of Service: July 18, 2024
Pt seen and examined. No complaints. No chest pain or shortness of breath.
Objective
Labs:
07/18/24 04:14
07/18/24 04:14
Labs
Hgb 10.0 g/dL (13.0-18.0) L 07/18/24 04:14
Hct 30.0 % (39.0-52.0) L 07/18/24 04:14
Plt Count 360 10^3/uL (130-400) 07/18/24 04:14
Sodium 138 mmol/L (135-145) 07/18/24 04:14
Potassium 4.3 mmol/L (3.5-5.1) 07/18/24 04:14
BUN 58 mg/dl (9-20) H 07/18/24 04:14
Creatinine 1.5 mg/dL (0.7-1.3) H 07/18/24 04:14
Glucose 153 mg/dl (70-99) H 07/18/24 04:14
Vital Signs and I&O:
Vital Signs
Temp Pulse Resp BP Pulse Ox
98.1 F 71 20 127/69 95
07/18/24 07:53 07/18/24 07:53 07/18/24 07:53 07/18/24 09:19 07/18/24 07:53
Vital Signs
Temp Pulse Resp BP Pulse Ox
98.1 F 71 20 127/69 95
07/18/24 07:53 07/18/24 07:53 07/18/24 07:53 07/18/24 09:19 07/18/24 07:53
Intake & Output
07/16/24 07/17/24 07/18/24 07/19/24
06:59 06:59 06:59 06:59
Intake Total 670 / 670 720 / 720 1080 / 1080
Output Total 1750 / 1750 1100 / 1100 3550 / 3550
Balance -1080 / -1080 -380 / -380 -2470 / -6440
Physical Exam
Physical Exam
General: No acute distress, AAOX3
Neck: Negative JVD
Heart: Regular, Negative S3 positive S1/S2, Negative S4, No murmur
Lungs: CTA b/l, negative wheezes/rales/rhonchi
Abd: Positive BS, NT/ND, neg rebound/rigidity/guarding
Ext: Negative cyanosis/clubbing/edema
Neuro: nonfocal
--- NOTE | 2024-07-18 10:58 | W.PN.PUL3 ---
Addendum entered and electronically signed by Paul Narayanan MD 07/18/24 18:08:
Reviewed with infectious disease regarding hypereosinophilic syndrome. Difficult clinical situation given multiple etiologies for interstitial process
Hypereosinophilia noted, new over the last 10 days, not responsive to steroids, high-dose
Unfortunately, patient is not ideal candidate for tissue biopsy
Furthermore, inflammatory markers may be negative in the setting of high-dose steroid therapy
Difficult diagnostic situation
Reviewed family meeting outcome
Patient wishes to remain full code, wishes to review with his vascular surgeon
We will order CT chest 07/19 to assess whether there is any evidence to suggest progressive malignancy, lymphangitic spread, etc.
In my opinion, from a pulmonary standpoint, patient long-term prognosis is extremely poor
This has been relayed to the patient and on multiple occasions over the past few days
Original Note:
Today's Communication / Plan
-
Decrease oxygen to 5 L, tolerate saturation greater than 90%
Remains on doxycycline
Remains on prednisone 60 mg
Delirium noted.
Unfortunately prognosis is poor
Await family meeting
Assessment
-
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 [facility] was also hypoxic at the [facility]. He was
found to have a UTI and was admitted to the hospitalist service and started on antibiotics. ID consulted and a transrectal prostate ultrasound was performed on 07/05/2024 showing a 1.4 cm focal hypoechoic lesion in the right mid peripheral zone of
the prostate gland. Subsequent pelvic MRI on 07/10/2024 showed concern for a prostate abscess. Urology consulted and he is now awaiting either percutaneous drainage via IR versus surgery. He has remained on oxygen throughout this hospital course
with worsening O2 requirements since the evening of 07/09. Pulmonary service now consulted for preoperative stratification for prostate drainage of suspected abscess.
Chronic conditions DETECTIVE NARCOTICS AND VICE: MICHEAL SCC s/p SBRT (11/2022) with progression via PET/CT in July 2023 s/p chemoimmunotherapy in October 2023 with Keytruda + carbo/Taxol, A-fib on Eliquis, CAD s/p CABG, history of VT/VF arrest (04/2015), COPD/emphysema,
former tobacco smoker, hypertension, hyperlipidemia, DM type II, BPH, RBBB, PVD s/p vein stripping + fem bypass (2019), bilateral CEA, CKD, history of aortic aneurysm
Impression:
#Sepsis without shock due to right-sided prostate abscess, UTI + pneumonia
#Suspected bilateral pneumonia vs post-obstructive MICHEAL PNA in setting of bilateral lymphangitic carcinomatosis; component of aspiration pneumonia is suspected
#Mediastinal lymphadenopathy seen on CT chest from 07/03/2024, likely due to known MICHEAL lung cancer
#Recurrent UTI/bacterial prostatitis due to E. coli (R=cipro)
#Hx of MICHEAL NSCLC (SCC) with recurrence with Hx of SBRT (11/2022) and chemoimmunotherapy with keytra, carbo/taxol
#Acute respiratory failure with hypoxia on supplemental oxygen due to above
#Anemia (baseline Hb 8-10g/dL)
#Hypereosinophilic syndrome
#Hypochloremic, hyponatremia
#CKD (baseline Cr 1.3)
#DM type II c/b hyperglycemia (HbA1c: 8 on 07/03/2024)
#Hypoalbuminemia due to poor nutritional status
#Orthostatic hypotension
#COPD/emphysema not on inhalers as an outpatient
#Former tobacco smoker
Plan/recs
At this time, patient appears to be comfortable, but respiratory status remains tenuous, remains on 6 L, 94%
Urology and cardiology correspondence reviewed, they have signed off
Continuous bladder irrigation noted, discontinued
Chest x-ray today with no changes, no improvement in bilateral interstitial changes
In fact, I think chest x-ray have worsened
VSE c/w gross aspiration with thin liquid barium with straw. I reviewed with patient that this significantly increases his risk of aspiration
Patient with increased confusion, delirium this morning
Moving forward
Continue with supportive care
Presently on 6 L, wean as able. Doubt we will be able to make much more progress with regards to weaning oxygen
Chest x-ray 07/09 with extensive interstitial changes, left greater than right, which I think is worsening
Weaned down to 5 L or less if able
I reviewed with patient at length likely multifactorial causes of progressive interstitial process, nodular disease
Progressive metastatic cancer, lymphangitic spread, chemotherapy induced pneumonitis, aspiration pneumonitis, radiation pneumonitis
With the above, I do not see him improving especially given that he has been on broad-spectrum antibiotics and steroids throughout hospital stay without any clear improvement from a pulmonary standpoint
CT chest from 07/03/2024 shows suspected local recurrence of known MICHEAL lung cancer with residual reticular nodular opacities, bilateral nodular opacities and bilateral upper lobe intralobular septal thickening with concern for lymphangitic
carcinomatosis; he also has small bilateral pleural effusions with differential including malignant effusion, acute decompensated heart failure vs parapneumonic.
Peripheral eosinophilia noted-unclear etiology possibly medication induced
IgE level greater than 14k
Recommend follow-up with hematology/oncology as outpatient
Infectious disease following
Antibiotics continue for aspiration pneumonia and prostatitis-ertapenem now in addition to doxycycline-will continue for 6 weeks
Urology following-correspondence reviewed
Tolerated 07/15/2024 surgery well with spinal anesthesia and sedation
Status post TUR unroofing of prostatic abscess, TURP and complicated catheter placement over guidewire due to posterior pocket from resected abscess cavity 07/15/2024
Cosyntropin stim test noted
Continues on midodrine and Florinef
Cardiology following-correspondence reviewed
Diuresis as tolerated
Monitor renal function, electrolytes, intake/output, lower extremity edema and weight
Replace electrolytes as needed
Lung cancer likely with recurrence-currently on Keytruda.
Continue to follow-up with oncology after discharge.
DVT prophylaxis-on Eliquis-on hold for procedure
I had an extensive discussion with the patient and his by phone regarding my concern, respiratory status, oxygen requirement
I encouraged him to review his advanced directives. He does not have any. He would like to discuss this with his
If he does not show any improvement in his oxygen requirement in the next 24 to 72 hours, this may be consistent with progressive interstitial pneumonitis, lymphangitic spread with a component of radiation and immunotherapy induced pneumonitis
Await family meeting, per primary service
Strongly recommend discussion regarding CODE STATUS given multiple comorbidities. This will be an ongoing discussion between him and his

Data:
Pelvis MRI w + w/o contrast 07/10/2024:
1.8 x 1.3 x 1.1 cm peripherally enhancing, T2 hyperintense focus within the posterior lateral right peripheral zone in the mid/apical aspect of the gland which is most likely likely an abscess. This appears to correlate with the abnormality seen on
recent ultrasound.
Mild BPH changes.
There are numerous diverticuli along the posterior aspect of the urinary bladder which measure up to 2.4 cm. There is additional prominent trabeculations of the urinary bladder. Findings are likely sequelae of chronic outlet obstruction.
[place] diverticulosis.
CT Chest w/o contrast 07/03/2024:
Left upper lobe mass compatible with carcinoma. Since prior CT of November 26, 2023, evidence for interval increase of extension of the mass into the left side of the mediastinum.
Nodular parenchymal opacities within both lower lobes have increased compared to prior CT examination, morphologic appearance most suggestive of pneumonia.
Interval improvement in reticulonodular and groundglass opacities within both upper lungs, mainly within the upper lobes, suggesting improvement in pneumonia and/or lymphangitic spread of carcinoma.
Minimal bilateral posterior pleural effusions.
Total time spent today was 77 minutes for this encounter. Time includes reviewing laboratory test/imaging results, reviewing pertinent medical records, obtaining and reviewing medical history, performing an appropriate exam, ordering medications,
tests and procedures. Time also includes documentation of this encounter, coordinating patient care and communicating with other healthcare professionals. Total time does not include separately billed tests performed on this date of service.
Subjective Data
-
Date of Service:
Date of Service: July 18, 2024
Chief Complaint: Pulmonary Follow Up and Dyspnea Follow Up
Subjective:
Patient is confused this morning. Asking to go to [facility], needing to meet with a man. Unaware that he is at [facility]. Attempted to reorient. Patient denies shortness of breath, chest pain, cough. Remains on 5 L
Objective Data
Data Reviewed
Vital Signs / I&O / Oxygen:
Vital Signs
Temp Pulse Resp BP Pulse Ox
98.1 F 71 20 127/69 95
07/18/24 07:53 07/18/24 07:53 07/18/24 07:53 07/18/24 09:19 07/18/24 07:53
Intake and Output
07/17/24 07/18/24 07/19/24
06:59 06:59 06:59
Intake Total 720 / 720 1080 / 1080
Output Total 1100 / 1100 3550 / 3550
Balance -380 / -380 -2470 / -2470
SaO2 95
Nasal Cannula flow liters per 6
minute
Physical Exam
General: Comfortable
HEENT: Normocephalic, Anicteric and Other (Dry mucosa)
Cardiovascular: S1-S2, Regular Rhythm, Murmur (n) and Rub (n)
Respiratory: Wheeze (n), Crackles (Few at base, left greater than right), Non-Labored Respirations and Stridor (n)
GI: Soft, Non Distended and Non Tender
Neurology: Awake, Alert, No Motor Deficits (Generally weak) and Other (Patient is confused, thinks he needs to go to [facility])
Skin: Warm, Good Color, Cyanosis (n) and Jaundice (n)
Labs/Micro/Reports
Lab Data
07/18/24 04:14
07/18/24 04:14
Microbiology
07/15/24 09:20 Abscess Wound Culture - Preliminary
No growth
07/15/24 09:20 Abscess Gram Stain - Preliminary
07/15/24 09:20 Abscess Anaerobic Culture - Preliminary
Culture pending. Anaerobic cultures are examined after 3
days incubation. Additional information to follow.
[2024-07-18 11:55] VITALS: BP 154/82
[2024-07-18 12:36] LABS: Glucose - Point of Care 153 mg/dl (70-99)
--- NOTE | 2024-07-18 14:40 | CM ---
Patient seen at bedside with physicians. Patient aware of family meeting planned for later today. CM will continue to follow for discharge planning needs.
Plan; SNF vs discussion
[2024-07-18 16:03] VITALS: BP 175/95
[2024-07-18 16:39] LABS: Glucose - Point of Care 162 mg/dl (70-99)
[2024-07-18 21:19] LABS: Glucose - Point of Care 148 mg/dl (70-99)
[2024-07-18] MEDS: LANTUS 0.1 UNITS SC (21:45)
[2024-07-18 23:55] VITALS: BP 181/91
[2024-07-19] MEDS: RISPERDAL M-TAB (ORALLY DISINTEGRATING) 0.5 MG PO (01:48)
--- NOTE | 2024-07-19 01:54 | W.PN.UPDATE ---
Update Note
Progress Note Update
Patient is agitated, trying to get out of bed, refusing to stay in bed swinging at the staff.
Staff is not able redirect the patient. One time Risperdal 0.5 mg ordered and will continue med sitter.
--- NOTE | 2024-07-19 02:12 | PTCARENOTE ---
Pt extremely aggressive, agitated since change of shift. Trying to get out of bed, hallucinating, yelling and attempting to hit staff. Unable to reorient patient. Pt stating he is at home and 'needs to get back to his throne' and needs to 'get the
baby back home to his father'. Refusing to believe he is in the hospital. PAPETERIE TABLE ASSEMBLER notified. 0.5 PO Risperdal given. Plan of care on going.
[2024-07-19 05:08] VITALS: BP 165/81
[2024-07-19 05:15] LABS: % Basophils 0.2 % (0-2); % Eosinophils 0.1 % (0-6); % Lymphocytes 9.9 % (20.5-51.1); % Monocytes 9.8 % (1.7-9.3); Absolute Immature Granulocytes 0.1 10^3/uL (0-0.05); Absolute Lymphocytes 1.1 10^3/uL (1.2-3.4); Absolute Monocytes 1.1 10^3/uL (0.1-0.6); Absolute Neutrophils 8.8 10^3/uL (1.4-6.5); Hematocrit 29.8 % (39.0-52.0); Hemoglobin 9.6 g/dL (13.0-18.0); Mean Corp Hgb Conc. 32.2 g/dL (33.0-37.0); Mean Corpuscular Hgb 29.2 pg (27.0-31.0); Mean Corpuscular Volume 90.6 fL (80.0-94.0); Mean Platelet Volume 8.9 fL (7.4-10.4); Nucleated Red Blood Cells % 0 % (-); Platelet Count 351 10^3/uL (130-400); Red Blood Cell Count 3.29 10^6/uL (4.70-6.10); Red Cell Dist. Width 14.9 % (11.5-14.5); White Blood Cell Count 11.1 10^3/uL (4.8-10.8)
[2024-07-19 05:37] LABS: Blood Urea Nitrogen 62 mg/dl (9-20); Calcium 11.3 mg/dl (8.4-10.2); Carbon Dioxide 31 mmol/L (22-30); Chloride 102 mmol/L (98-107); Estimated Creatinine Clearance 38 ml/min; Glucose 162 mg/dl (70-99); Potassium 3.9 mmol/L (3.5-5.1); Sodium 139 mmol/L (135-145); eGFR 42.75
[2024-07-19 06:00] VITALS: BMI 26.7
[2024-07-19 06:46] VITALS: BP 150/62
--- NOTE | 2024-07-19 07:37 | W.PN.HOSP.TC ---
Addendum entered and electronically signed by Cinthya Najera MD 07/19/24 13:39:
I saw and evaluated the patient independently. I reviewed the resident�s note and agree with findings and plan as documented by Dr. Tyler.
GENERAL: chronically ill appearing, deconditioned male in no apparent distress
HEENT: NC/AT--O2 NC now up to 5-6 L
HEART: regular rate and rhythm, +S1, +S2
LUNGS : clear to auscultation bilaterally
ABDOM: soft, nontender, nondistended, + bowel sounds
EXT: no cyanosis, clubbing, or edema
NEUROLOGIC: sleepy
: sanchez with [facility]
pt worse today, hallucinating, cannot wean down O2, very confused--received head CT (negative for acute findings)--and chest CT (progressive irregular interstitial opacities and thickening)--apprec psych--agree that pt not capable of making
decisions-- has made him DNR/DNI--plan is for home hospice Tuesday after family spoke with clinical rehabilitation liaison, Tabatha Olivares
Acute hypoxemic respiratory failure likely from progression of lung cancer--apprec heme/pulm--O2 up to 6L--recheck CXR slightly worse--CT chest 07/03/2024 with interval increase of extension of the mass into the left side of the mediastinum-- CT
chest as above
sepsis due to Recurrent E. coli prostatitis with UTI--apprec ID--doxycycline for 6 weeks plus ertapenem--w/u revealed prostate abscess (prostate ultrasound 07/05/2024 noted 1.4 cm focal hypoechoic lesion in the right mid peripheral zone of the
prostate gland--Pelvic MRI 07/10/2024 1.8 x 1.3 x 1.1 cm peripherally enhancing focus within the posterior lateral right peripheral zone in the mid/apical aspect of the gland which is most likely likely an abscess. IR was consulted for aspiration,
they deemed not easily accessible hence would not proceed)--apprec urology--s/p TURP with unroofing the abscess--cont sanchez as per urology
Aspiration pneumonia suspected-- VSE reviewed and diet continued---apprec ID--now on Ertapenem due to long QT
Severe Orthostatic hypotension with generalized weakness/fall--cannot use teds due to leg grafts--cont abdominal binder--cosyntropin STIM test without adrenal insufficiency--ranexa and flomax stopped--midodrine and florinef started--unable to 'fix'
orthostasis and pt cannot stand to even evaluate that aspect
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
outpatient records--IBG levels markedly elevated--ID started prednisone (curiously his supine BP improved)--cont ertapenem
anemia of chronic disease--Stable hemoglobin with no evidence of bleeding
CKD stage 3b--SCr today at 1.5, currently at baseline
Type 2 DM--cover with sliding scale--Lantus 10 u HS
Lung cancer of left lobe, squamous cell carcinoma--s/p SBRT, completed carbo/taxol 04/17/2024, was on Keytruda--Dr. Najera spoke with Dr. Shin 2 weeks ago, needs PET at [facility] where his other scans are.
Chronic diastolic congestive heart failure--holding torsemide--Off Ranexa due to orthostatic hypotension
Paroxysmal AFib/CAD s/p CABG KINCAID-LAD 04/2015. PCI LM and LCX 06/2015; 09/2022 post cath with patent KINCAID to LAD and stent and no new obstructive CAD/History of VT/VF cardiac arrest 04/2015 underwent urgent CABG as above--due to procedures--Eliquis to
resume 07/18--plavix on hold-ASA added while off Eliquis and Plavix--apprec cards
BPH--cont finasteride
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
Hypercholesterolemia--Continue Crestor
DVT proph-- off Eliquis-- will resume 07/18
Code Status: DNR/DNI
Original Note:
Today's Communication/Plan
-
Psych consulted to evaluate capacity in patient.
Head Ct scan due to Confusion, agitation.
Assessment / Plan
Assessment / Plan
Assessment/Plan
# Acute hypoxemic respiratory failure likely from progression of lung cancer
-Patient currently on 6L, wean as tolerated. decrease to 5L today. Keep 02 88-90%
-CT chest 07/03/2024 with interval increase of extension of the mass into the left side of the mediastinum
-Oncology following. Will likely obtain outpatient PET to assess status
-Per oncology, further treatment of lung cancer TBD
-Repeat CXR 07/17 Unchanged left upper lung mass. Unchanged bilateral patchy airspace consolidation, left worse than right. Minimal left effusion.
# Recurrent prostatitis
# E. coli UTI
-Doxycycline for 6 weeks for prostatitis
-ID following
# Sepsis secondary to right-sided prostate abscess
prostate ultrasound 07/05/2024 noted 1.4 cm focal hypoechoic lesion in the right mid peripheral zone of the prostate gland.
Pelvic MRI 07/10/2024 1.8 x 1.3 x 1.1 cm peripherally enhancing focus within the posterior lateral right peripheral zone in the mid/apical aspect of the gland which is most likely likely an abscess.
IR was consulted for aspiration, they deemed not easily accessible hence would not proceed
-Urology following.
-s/p TUR unroofing of prostatic abscess + TURP on Sunday 07/15
#Aspiration pneumonia suspected
-Chest x-ray 07/09/2024 increase in reticulonodular more confluent areas of parenchymal opacity within both lungs, greater on the left compared to the right. The appearance is highly suggestive of bilateral pneumonia.
-ID input appreciated,
-Completed ertapenem
-VSE 07/17 with Airway aspiration noted with thin liquids by straw. Speech evaluated. Recommending Regular solids/thin liquids. Aspiration precautions: single cup sips only (no straws), sit upright, slow rate
-Repeat CXR 07/17 Unchanged left upper lung mass. Unchanged bilateral patchy airspace consolidation, left worse than right. Minimal left effusion.
# generalized weakness/fall
# Orthostatic hypotension
-Continue midodrine/Florinef for orthostasis
-cont abdominal binder
-PT/OT recc SNF
-cosyntropin STIM test without adrenal insufficiency
-Flomax and Ranexa stopped without improvement in orthostasis
-On Prednisone 60mg QD started 07/16
# Relapsing Eosinophilia
-follow eosinophilia, possibly due to cephalosporins, less likely amiodarone which he has been off of since last admission, previously felt eosinophilia relapsing prior to restarting keytruda based on outpatient records
-Completed ertapenem. Now on prednisone 60mg PO Qday.
-ID following
# anemia of chronic disease
-Stable hemoglobin with no evidence of bleeding
-Monitor hemoglobin level
# CKD stage 3b
-SCr today at 1.5, baseline 1.4
# Type 2 DM
-cover with sliding scale
-Lantus 10 u HS
# Lung cancer of left lobe, squamous cell carcinoma
Primary oncologist is Dr. Shin
s/p SBRT, completed carbo/taxol 04/17/2024, was on Keytruda
spoke with Dr. Shin, needs PET at [facility] where his other scans are.
# Chronic diastolic congestive heart failure
-holding torsemide
-Off Ranexa due to orthostatic hypotension
# Paroxysmal AFib
# CAD s/p CABG KINCAID-LAD 04/2015. PCI LM and LCX 06/2015; 09/2022 post cath with patent KINCAID to LAD and stent and no new obstructive CAD
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
-Eliquis 2.5 mg twice daily, Plavix 75 mg daily Plan to resume Eliquis Today
apprec cards
# BPH
Off Flomax due to orthostatic hypotension
cont finasteride
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
# Hypercholesterolemia
Continue Crestor
DVT ppx: Eliquis
Code Status: DNR
Anticipated Discharge: > 48 hours
Subjective/Interval History
-
Overnight, patient was agitated, while trying to get out of bed. In addition, seen at bedside today. Was midly confused. Will order a CT head to evaluate.
Objective Data
-
Labs:
Laboratory Results
07/19/24
04:47
WBC 11.1 H
Hgb 9.6 L
Hct 29.8 L
Plt Count 351
Sodium 139
Potassium 3.9
Chloride 102
Carbon Dioxide 31 H
BUN 62 H
Creatinine 1.6 H
Glucose 162 H
Calcium 11.3 H
Vital Signs:
Vital Signs
Temp Pulse Resp BP Pulse Ox
97.4 F 73 21 165/81 98
07/18/24 23:55 07/19/24 05:08 07/18/24 23:55 07/19/24 05:08 07/18/24 23:55
I&O
07/18/24 07/19/24 07/20/24
06:59 06:59 06:59
Intake Total 1080 / 1080 0 / 0
Output Total 3550 / 3550 2350 / 2350
Balance -2470 / -2470 -2350 / -2350
Review of Systems
-
All other systems: Reviewed and negative (except as documented)
Physical Exam
-
General: Appears Chronically Ill
Respiratory: Crackles; Negative Wheezes
Cardiac: Regular Rhythm and S1/S2
GI: Soft, Nontender and Nondistended
Musculoskeletal: No Edema
Psych: Agitated
[2024-07-19 08:05] LABS: Glucose - Point of Care 148 mg/dl (70-99)
[2024-07-19 08:12] VITALS: BP 156/62; BP 181/76; PULSE 70; PULSE 78
[2024-07-19] MEDS: NOVOLOG FLEXPEN-LOW RESISTANCE SC (08:17)
[2024-07-19] MEDS: FLORINEF 0.2 MG PO (08:18)
[2024-07-19] MEDS: PEPCID 20 MG PO (08:18)
[2024-07-19] MEDS: DELTASONE 50 MG PO (08:18)
[2024-07-19] MEDS: COLACE 100 MG PO (08:18)
[2024-07-19] MEDS: PROSCAR 5 MG PO (08:18)
[2024-07-19] MEDS: CRESTOR 5 MG PO (08:18)
[2024-07-19] MEDS: VISBIOME 1 CAP PO (08:18)
[2024-07-19] MEDS: DELTASONE 10 MG PO (08:18)
[2024-07-19] MEDS: VIBRAMYCIN 100 MG PO (08:18)
[2024-07-19] MEDS: ASPIR LOW (ENTERIC COATED) 81 MG PO (08:18)
[2024-07-19] MEDS: FLORASTOR 250 MG PO (08:18)
[2024-07-19] MEDS: TYLENOL 650 MG PO ×2 (08:18→16:28)
[2024-07-19] MEDS: DESENEX/MITRAZOL/ZEASORB 1 APPLIC TOPICAL ×2 (08:23→21:24)
[2024-07-19] MEDS: ProAmatine PO (09:30)
[2024-07-19] MEDS: ELIQUIS 2.5 MG PO (09:31)
--- NOTE | 2024-07-19 10:24 | CON.ONC ---
Impression
Impression
83-year-old male with past medical history of squamous cell carcinoma MICHEAL status post SBRT, chemoimmunotherapy admitted with urosepsis.
#recurrent UTI/prostatitis
-Continue antibiotic therapy
#Prostate Abscess
- status post surgery, will need outpatient follow-up for TOV in 7 days
- Leukocytosis downtrending
#relapsed/recurrent lung cancer
- CT chest today today shows progressive heterogeneous coarse irregular interlobular septal tissue thickening and associated patchy airspace opacity since prior examination, bilateral pleural effusion and cardiomegaly, mediastinal adenopathy,
persistent pleural-based mass in the medial left apex.
# Pneumonia
- Likely multifactorial
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
- Completed ertapenem
- Leukocytosis downtrending
- History of pneumonitis attributed to Keytruda in October 2023
# Delirium
- Likely in the setting of sepsis, high-dose steroids
- Head CT no acute abnormality
# Eosinophilia
- Etiology unclear
- On high-dose steroids, can plan to taper
- Now resolved with addition of steroids
- ANCA MPO/WA-3 antibody pending
- Aspergillus antibodies pending
- History of hypereosinophilia on prior admissions
# Acute respiratory failure with hypoxia
- On 6 L of oxygen, O2 sat 94%
- Wean as able
# Atrial fibrillation
- Continue Eliquis
# Anemia
- Chronic
- Hemoglobin stable
Plan
Plan
Further treatment of lung cancer TBD. Will likely obtain outpatient PET to assess status (done most recently at [facility] in March)
We will follow along.
Patient History
History of Present Illness
83-year-old male with past medical history of squamous cell carcinoma of the left upper lobe living in [place] [facility] presented with weakness and hypoxia. Noted to have UTI on admission. Prostate ultrasound showed 1.4 cm focal hypoechoic lesion in
the right mid peripheral zone of the prostate gland and pelvic MRI showed prostate abscess. Urology consulted and surgery performed 07/15/2024. Patient has history of pneumonitis attributed to Keytruda and hypereosinophilia responsive to steroids on
prior admission dated April 2024. This admission, patient was again noted to have hypereosinophilia and elevated IgE levels (>14k). He was started on high-dose steroids, which is now resolved. Chest CT 07/03/2024 showed evidence for interval
increase of extension of the mass into the left side of the mediastinum since prior chest CT performed November 2023.
Patient is feeling confused since yesterday.
Past-Medical/Surgical History
Left upper lobe SCC status post SBRT (11/2022) with progression seen on PET/CT in 07/2023 status post chemoimmunotherapy (10/2023, completed Carbo/Taxol 03/2024), currently on Keytruda
A-fib
COPD
CAD status post CABG
Recurrent UTI/prostatitis
VT/VF arrest (04/2015)
Hypertension
Hyperlipidemia
Diabetes mellitus type 2
CKD stage III (baseline creatinine 1.3)
Patient Medication
�Medication �Instructions �Recorded �Confirmed �Last Taken �Type
tamsulosin 0.4 mg capsule 0.4 mg PO DAILY Urinary issue 07/15/22 07/02/24 05/21/24 History
azelastine 137 mcg (0.1 %) nasal 1 spray intranasal BIDPRN PRN 09/14/23 07/02/24 11/18/23 History
spray congestion
apixaban 2.5 mg tablet (Eliquis) 2.5 mg PO BID #60 tabs 12/03/23 07/02/24 05/21/24 Rx
Lactobacillus-Bifidobacterium 30 1 cap PO DAILY Gastrointestinal 01/05/24 07/02/24 05/21/24 History
billion cell capsule,delayed Issue
release (Ultimate Mena Probiotic)
clopidogrel 75 mg tablet 75 mg PO DAILY Blood Clot 0407/02/24 05/21/24 History
Prevention/Tx
dextromethorphan-guaifenesin 30 1 tab PO [id number] PRN congestion ##0 01/05/24 07/02/24 Unknown History
mg-600 mg tablet extended
[id number] hr (Mucinex DM)
psyllium 1 packet PO HS constipation 01/05/24 07/02/24 05/20/24 History
acetaminophen 325 mg tablet 650 mg PO Q4HPRN PRN mild pain 05/21/24 07/02/24 Unknown History
(Tylenol)
ammonium lactate 12 % lotion 1 applic topical DAILYPRN PRN B/L 05/21/24 07/02/24 Unknown History
legs
triamcinolone acetonide 0.1 % 1 applic topical BIDPRN PRN rash 05/21/24 07/02/24 Unknown History
topical ointment on buttocks
finasteride 5 mg tablet 5 mg PO DAILY #30 tabs 05/30/24 07/02/24 Unknown Rx
Saccharomyces boulardii 250 mg 250 mg PO BID 07/02/24 07/02/24 Unknown History
capsule (Florastor)
acetaminophen 500 mg tablet 500 mg PO TID 07/02/24 07/02/24 Unknown History
(Tylenol Extra Strength)
bisacodyl 10 mg rectal suppository 10 mg WA DAILYPRN PRN IF NO BM 07/02/24 07/02/24 Unknown History
(Dulcolax (bisacodyl)) AFTR MOM
coQ10 (ubiquinol) 100 mg capsule 100 mg PO DAILY 07/02/24 07/02/24 Unknown History
docusate sodium 100 mg capsule 100 mg PO DAILY 07/02/24 07/02/24 Unknown History
(Colace)
insulin aspart U-100 100 unit/mL 10 sliding scale dose SC AC 07/02/24 07/02/24 Unknown History
subcutaneous solution
insulin glargine 100 unit/mL (3 10 unit SC DAILY@1900 Diabetes 07/02/24 07/02/24 Unknown History
mL) subcutaneous pen (Lantus
Solostar U-100 Insulin)
magnesium hydroxide 400 mg/5 mL 2,400 mg PO DAILYPRN PRN IF NO BM 07/02/24 07/02/24 Unknown History
oral suspension (Milk of Magnesia) IN 2/3 DAYS
methenamine hippurate 1 gram 1 g PO DAILY 07/02/24 07/02/24 Unknown History
tablet (Hiprex)
midodrine 10 mg tablet 10 mg PO TID 07/02/24 07/02/24 Unknown History
mupirocin 2 % topical ointment 1 applic topical DAILY BUTTOCKS 07/02/24 07/02/24 Unknown History
ranolazine 500 mg tablet,extended 500 mg PO BID 07/02/24 07/02/24 Unknown History
release,12 hr
rosuvastatin 5 mg tablet (Crestor) 5 mg PO DAILY 07/02/24 07/02/24 Unknown History
sodium phosphates 19 gram-7 118 ml WA DAILYPRN PRN IF NO BM 07/02/24 07/02/24 Unknown History
gram/118 mL enema (Fleet Enema) AFTR DULCOLAX
torsemide 20 mg tablet 10 mg PO DAILYPRN PRN WEIGHT GAIN 07/02/24 07/02/24 Unknown History
Active Medications
Generic Name Dose Route Start Last Admin
Trade Name Freq PRN Reason Stop Dose Admin
Acetaminophen 650 mg 07/06/24 16:00 07/19/24 08:18
Acetaminophen 325 Mg Tablet PO 08/03/24 15:59 650 mg
TID KALANI Administration
Apixaban 2.5 mg 07/02/24 20:17 07/19/24 09:31
Apixaban (Eliquis) 2.5 Mg Tablet PO 07/30/24 20:16 2.5 mg
BID KALANI Administration
Aspirin 81 mg 07/11/24 08:00 07/19/24 08:18
Aspirin 81 Mg (Enteric Coated) Tablet PO 08/08/24 07:59 81 mg
DAILY KALANI Administration
Bisacodyl 10 mg 07/02/24 20:17
Bisacodyl 10 Mg Rectal Suppository RECTAL 07/30/24 20:16
[id number] PRN
constipation
Clopidogrel Bisulfate 75 mg 07/03/24 08:00 07/10/24 09:44
Clopidogrel 75 Mg Tablet PO 07/31/24 07:59 75 mg
DAILY KALANI Administration
Dextrose 12.5 grams 07/02/24 20:17 07/15/24 09:53
Dextrose 50% (0.5 Grams/Ml) 50 Ml Syringe IV 07/30/24 20:16 12.5 grams
[id number] PRN Administration
hypoglycemia
Protocol
Docusate Sodium 100 mg 07/03/24 08:00 07/19/24 08:18
Docusate Sodium 100 Mg Capsule PO 07/31/24 07:59 100 mg
DAILY KALANI Administration
Doxycycline Hyclate 100 mg 07/04/24 20:00 07/19/24 08:18
Doxycycline 100 Mg Capsule PO 08/15/24 08:01 100 mg
Q12 KALANI Administration
Famotidine 20 mg 07/16/24 16:00 07/19/24 08:18
Famotidine 20 Mg Tablet PO 08/13/24 15:59 20 mg
DAILY KALANI Administration
Finasteride 5 mg 07/03/24 08:00 07/19/24 08:18
Finasteride 5 Mg Tablet PO 07/31/24 07:59 5 mg
DAILY KALANI Administration
Fludrocortisone Acetate 0.2 mg 07/08/24 08:00 07/19/24 08:18
Fludrocortisone Acetate 0.1 Mg Tablet PO 08/05/24 07:59 0.2 mg
DAILY KALANI Administration
Glucagon 1 mg 07/02/24 20:17
Glucagon 1 Mg Vial IM 07/30/24 20:16
PRN PRN
hypoglycemia
Protocol
Heparin Sodium (Porcine) 500 unit 07/03/24 00:01 07/16/24 04:48
Heparin Flush Pf (100 Unit/Ml) 5 Ml Syringe IV 07/31/24 00:00 500 unit
PRN PRN Administration
SC PORT ACCESS
Insulin Glargine 10 units/ 0.1 mls @ 0 mls/hr 07/03/24 22:00 07/18/24 21:45
Device SC 07/31/24 21:59 0.1 mls
DAILY@2200 KALANI Administration
As Directed
Insulin Aspart 0 units 07/02/24 20:17 07/19/24 08:17
Insulin Aspart Low Resistance 300 Units/3 Ml Pen.Injctr SC 07/30/24 20:16 Not Given
AC KALANI
Protocol
Lactobacillus/Bifidobacterium 1 cap 07/03/24 08:00 07/19/24 08:18
Lactobac/Bifidobac (Visbiome) PO 07/31/24 07:59 1 cap
DAILY KALANI Administration
Miconazole Nitrate 0 applic 07/03/24 08:00 07/19/24 08:23
Miconazole Powder Bottle TOPICAL 07/31/24 07:59 1 applic
BID KALANI Administration
Midodrine 5 mg 07/18/24 08:00 07/19/24 09:30
Midodrine 5 Mg Tablet PO 08/15/24 07:59 Not Given
TID@0800,1300,1800 KALANI
Polyethylene Glycol 17 grams 07/02/24 20:17
Polyethylene Glycol Powder 17 Grams Packet PO 07/30/24 20:16
DAILYPRN PRN
constipation
Prednisone 50 mg 07/16/24 16:00 07/19/24 08:18
Prednisone 50 Mg Tablet PO 08/13/24 15:59 50 mg
DAILY KALANI Administration
Prednisone 10 mg 07/16/24 16:00 07/19/24 08:18
Prednisone 10 Mg Tablet PO 08/13/24 15:59 10 mg
DAILY KALANI Administration
Rosuvastatin Calcium 5 mg 07/03/24 08:00 07/19/24 08:18
Rosuvastatin (Crestor) 5 Mg Tablet PO 07/31/24 07:59 5 mg
DAILY KALANI Administration
Saccharomyces Boulardii 250 mg 07/02/24 20:17 07/19/24 08:18
Saccharomyces Boulardi (Florastor) 250 Mg Capsule PO 07/30/24 20:16 250 mg
BID KALANI Administration
Senna/Docusate Sodium 1 tablet 07/02/24 20:17
Docusate W/Senna (Jessy-Colace) Tablet PO 07/30/24 20:16
BIDPRN PRN
constipation
Sodium Chloride 0 flush 07/02/24 21:00 07/13/24 12:28
Sodium Chloride 0.9% (Flush) Syringe IV 07/30/24 20:59 1 flush
PER PROTOCOL KALANI Administration
Triamcinolone Acetonide 0 applic 07/02/24 20:17
Triamcinolone Acetonide 0.1% (Ointment) 15 Gram Tube TOPICAL 07/30/24 20:16
BIDPRN PRN
rash on buttocks
Review of Systems
-
History Source: Patient
Physical Exam
-
General: No Apparent Distress
Cardiology: Normal Sinus Rhythm, S1 and S2
GI: Soft
Musculoskeletal: No Clubbing, No Cyanosis and No Edema
Psych: Confused (Patient does not know which hospital he is in, does not know exact time but communicates that it is the morning.)
Labs
Lab Results
WBC 11.1 10^3/uL (4.8-10.8) H 07/19/24 04:47
RBC 3.29 10^6/uL (4.70-6.10) L 07/19/24 04:47
Hgb 9.6 g/dL (13.0-18.0) L 07/19/24 04:47
Hct 29.8 % (39.0-52.0) L 07/19/24 04:47
MCV 90.6 fL (80.0-94.0) 07/19/24 04:47
MCH 29.2 pg (27.0-31.0) 07/19/24 04:47
MCHC 32.2 g/dL (33.0-37.0) L 07/19/24 04:47
RDW 14.9 % (11.5-14.5) H 07/19/24 04:47
Plt Count 351 10^3/uL (130-400) 07/19/24 04:47
MPV 8.9 fL (7.4-10.4) 07/19/24 04:47
Abs Immat Gran (auto) 0.1 10^3/uL (0-0.05) H 07/19/24 04:47
Absolute Neuts (auto) 8.8 10^3/uL (1.4-6.5) H 07/19/24 04:47
Absolute Lymphs (auto) 1.1 10^3/uL (1.2-3.4) L 07/19/24 04:47
Absolute Monos (auto) 1.1 10^3/uL (0.1-0.6) H 07/19/24 04:47
Absolute Eos (auto) 0.0 10^3/uL (0-0.7) 07/19/24 04:47
Absolute Basos (auto) 0.0 10^3/uL (0-0.2) 07/19/24 04:47
Immature Gran % 1.0 % (0-0.5) H 07/19/24 04:47
Neutrophils % 79.0 % (42.2-75.2) H 07/19/24 04:47
Lymphocytes % 9.9 % (20.5-51.1) L 07/19/24 04:47
Monocytes % 9.8 % (1.7-9.3) H 07/19/24 04:47
Eosinophils % 0.1 % (0-6) 07/19/24 04:47
Basophils % 0.2 % (0-2) 07/19/24 04:47
Creatinine 1.6 mg/dL (0.7-1.3) H 07/19/24 04:47
Vital Signs
Vital Signs
Temp Pulse Resp BP Pulse Ox
97.6 F 74 18 156/62 92
07/19/24 06:46 07/19/24 09:30 07/19/24 06:46 07/19/24 09:30 07/19/24 08:06
--- NOTE | 2024-07-19 10:45 | CON.MD ---
Consultation - Medical
-
patient seen chart reviewed. case discussed w nursing and with ms pradhan . family including d and son in law at bedside and i met with the latter two privately after speaking to patient . the patient is an 83 year old male who has a host of
serious medical issues including but not limited to left metastatic lung cancer, severe cad and pad; he has experienced v fib and a fib. he was admittted for weakness, orthostasis, hypoxia, malaise. he was found to have a uti and later a prostatic
abscess which was recently treated surgically. he has ckd, dm, and eosinophilia exact etiology unknown. he is anemic, has chf, bph, s/p UT, s/p cabg, AAA, carotid artery disease, w surgery, LE bypass, DM, angiodema. he is currently a full code.
the family is of the opinion that he should be DNR and this consult was ordered for competency. nursing reports to me that patient is in and out of confusion. one moment what he says will make sense... a few minutes later he will say something that
indicates confusion. i had the same experience. the patient was able to tell me he had lung cancer but in the next breath told me he wanted to leave 'this hotel'. he could not tell me that he was in a hospital and while he knew he had lung cancer
he could not tell me the extent of his illness and its complexity. he did tell me he was 'deciding' on what treatment he wanted but this was in the same sentence that he said he wanted to leave this hotel. he could not tell me what treatment he had
already received and was unaware that he had recently had surgery for prostatic abscess. he denied that he was depressed. there was nothing to indicate suicidality or psychosis.
past psych hx none
medical x see above. patient's hgb is 9.6 cr 1.6 bun 62 glucose 162 qtc 504 ua + for infection eosinophil count elevated cat brain this am w no new findings
fh non contributory
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
mse alert speech sometimes very hard to understand thought process slowed answers were very brief and sometimes seemed to miss the bianca. patient was oriented to person month year and season but thought he was in a hotel. mood is irritated
affect constricted no si aver intelligence but at this point there seems to be cognitive impairment insight judgment impaired
dx tme secondary to many medical illnesses see above
recommendations. i do not feel this patient is competent to make medical decisions on his own behalf. he does not fully understand his many illnesses and their seriousness. nor does he understand the ramifications and consequences of various
courses of action. as noted above i did speak with family about my opinion re competence.
--- NOTE | 2024-07-19 11:18 | HOSPNOTE ---
Addendum entered by Lulu Olivares RN 07/19/24 12:23:
Spoke with family and patient will be going home on Tuesday. All equipment will be delivered on Tuesday afternoon. OOH DNR will be needed on chart and transport will be needed. Family all in agreement with hospice care. Once patient is home our
nurse will admit onto our service. CM and Attending aware of plan.
Original Note:
Hospice referral received and will meet with family. More information to follow.
--- NOTE | 2024-07-19 11:30 | W.PN.ONC ---
Today's Communication / Plan
-
Further treatment of lung cancer TBD. Will likely obtain outpatient PET to assess status (done most recently at [facility] in March)
We will follow along.
Impression
Impression
83-year-old male with past medical history of squamous cell carcinoma of the left upper lobe living in [place] presented with weakness and hypoxia. Noted to have UTI on admission. Prostate ultrasound showed 1.4 cm focal hypoechoic lesion in
the right mid peripheral zone of the prostate gland and pelvic MRI showed prostate abscess. Urology consulted and surgery performed 07/15/2024. Patient has history of pneumonitis attributed to Keytruda and hypereosinophilia responsive to steroids on
prior admission dated April 2024. This admission, patient was again noted to have hypereosinophilia and elevated IgE levels (>14k). He was started on high-dose steroids, which is now resolved. Chest CT 07/03/2024 showed evidence for interval
increase of extension of the mass into the left side of the mediastinum since prior chest CT performed November 2023.
Patient is feeling confused since yesterday.
#recurrent UTI/prostatitis, urosepsis
- Continue antibiotic therapy
- Leukocytosis downtrending
#Prostate Abscess
- status post surgery, will need outpatient follow-up for TOV in 7 days
- Leukocytosis downtrending
- Cultures no growth
#relapsed/recurrent lung cancer
- CT chest today today shows progressive heterogeneous coarse irregular interlobular septal tissue thickening and associated patchy airspace opacity since prior examination, bilateral pleural effusion and cardiomegaly, mediastinal adenopathy,
persistent pleural-based mass in the medial left apex.
# Pneumonia
- Likely multifactorial
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
- Completed ertapenem
- Leukocytosis downtrending
- History of pneumonitis attributed to Keytruda in October 2023
# Delirium
- Likely in the setting of sepsis, high-dose steroids
- Head CT no acute abnormality
# Eosinophilia
- Etiology unclear
- On high-dose steroids, can plan to taper
- Now resolved with addition of steroids
- ANCA MPO/OK-3 antibody pending
- Aspergillus antibodies pending
- History of hypereosinophilia on prior admissions
# Acute respiratory failure with hypoxia
- On 6 L of oxygen, O2 sat 94%
- Wean as able
# Atrial fibrillation
- Continue Eliquis
# Anemia
- Chronic
- Hemoglobin stable
Subjective/Objective
Subjective/Objective
Vital Signs:
Vital Signs
Temp Pulse Resp BP Pulse Ox
97.6 F 74 18 156/62 92
07/19/24 06:46 07/19/24 09:30 07/19/24 06:46 07/19/24 09:30 07/19/24 08:06
Lab Results:
Laboratory Data
WBC 11.1 10^3/uL (4.8-10.8) H 07/19/24 04:47
Hgb 9.6 g/dL (13.0-18.0) L 07/19/24 04:47
Plt Count 351 10^3/uL (130-400) 07/19/24 04:47
eGFR 42.75 07/19/24 04:47
--- NOTE | 2024-07-19 12:10 | W.PN.URO.CBU ---
Today's Communication / Plan
-
Maintain Sloan catheter to drainage
Plan for catheter change w/ Dr. Tsang in 3-4 weeks (pending clinical course and GOC)
PO doxycycline course per ID
Continue ASA + Eliquis (resumed 07/18)
D/w patient.
D/w Hospitalist.
Assessment / Plan
-
E. Coli cUTI
Prostatic abscess (confirmed on MRI and intraoperatively)
Recurrent prostatitis
BPH with LUTS
Post Op Day:
07/15: s/p TUR unroofing of prostatic abscess + TURP
Presented as very high risk situation - hypoxic respiratory failure and holding of AC/AP therapy (Eliquis/Plavix) for surgery.
Urine output remains clear w/o bleeding postop.
Diagnosis
-
Date of Service: July 19, 2024
-
Patient Diagnosis:
E. Coli cUTI
Prostatic abscess (confirmed on MRI and intraoperatively)
Recurrent prostatitis
BPH with LUTS
Post Op Day:
07/15: s/p TUR unroofing of prostatic abscess + TURP
Subjective
-
Urine clear in tubing.
Eliquis restarted 07/18.
Objective
-
Vital Signs
Temp Pulse Resp BP Pulse Ox
97.6 F 74 18 156/62 92
07/19/24 06:46 07/19/24 09:30 07/19/24 06:46 07/19/24 09:30 07/19/24 08:06
Intake and Output
07/18/24 07/19/24 07/20/24
06:59 06:59 06:59
Intake Total 1080 / 1080 0 / 0
Output Total 3550 / 3550 2350 / 2350
Balance -2470 / -2470 -2350 /
Intake:
Oral fluids 1080 / 1080 0 / 0
Output:
Urine, Sloan 2099 / 2099
True Urine Output from [facility] 1450 / 1450
Laboratory Results
07/19/24 04:47
07/19/24 04:47
Physical Exam
-
General - cacechtic, no acute distress
Chest - O2 NC
Abdomen - soft, non-tender, non-distended
Genitalia - normal, 22Fr 3-way catheter w/ clear UOP
Skin - warm & dry with no rash
Extremities - no clubbing, no cyanosis, no edema
Care Review
Data Reviewed
Discussed with: Hospitalist
MRI: Report Pers Reviewed and Image Pers Reviewed
[2024-07-19 12:33] LABS: Glucose - Point of Care 259 mg/dl (70-99)
[2024-07-19] MEDS: NOVOLOG FLEXPEN-LOW RESISTANCE 3 UNITS SC ×2 (12:58→17:24)
--- NOTE | 2024-07-19 12:59 | W.PN.ID1 ---
Date of Service
Date of Service: July 19, 2024
Today's Communication
Patient for dc on hospice Tuesday, doxycycline could be discontinued at that time or continued through 08/12
ID service will no longer actively follow this patient please recall for further questions
Assessment / Plan
Relapsing Eosinophilia
KATHARINE
- attribute ongoing pulm infiltrates to eosinophilia
- abrupt drop in AEC to undetectable with addition of steroids, leukocytosis also improving
- IgE markedly elevated sent ANCAs (low sensitivity) and aspergillus IgG and IgE
- stopped ertapenem 07/17 completed a 7 day course
- c/w prednisone 60 mg PO qday started 07/16 (also note fludrocortisone) - will defer further management to pulmonary
- c/w famotidine (PPIs also frequently assc with eosinophilia in my experience)
- 07/15 OR cultures no growth to date consistent with controlled chronic prostatitis (patient on antibiotics over a week before culture obtained) - will still need to complete the planned course of antibiotics to prevent relapse
- eosinophilia has not ultimately correlated with antibiotics, keytruda. Could still be related amiodarone use
- follow clinically; note pulmonary opinion that prognosis is
Resolved Aspiration Pneumonia; persistent pneumonitis likely secondary to eosinphilia
Leukocytosis, borderline fever, persistent hypoxemia
- CXR - progression of L lung infiltrates on my read - coughing and choking
- completed 7 day course of ertapenem and stopped
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
- for TURP and removal of abscess today
- continue doxycycline for 6 week total course (07/02-08/12)
Patient for dc on hospice Tuesday, doxycycline could be discontinued at that time or continued through 08/12
ID service will no longer actively follow this patient please recall for further questions
AW
Chief Complaint
-: Other (prostatitis, eosinophilia)
Subjective / Review of Systems
afebrile
bp stable
remains on O2
eosinophilia resolved
Vital Signs / Physical Exam
Vital Signs
Vital Signs
Temp Pulse Resp BP Pulse Ox
97.6 F 74 18 156/62 92
07/19/24 06:46 07/19/24 09:30 07/19/24 06:46 07/19/24 09:30 07/19/24 08:06
Physical Exam
Constitutional: Acutely Ill and Chronically Ill
Cardiovascular: Regular Rate
Pulmonary: Symmetric and Non Labored
Gastrointestinal: Non Tender and Non Distended
Skin: Dry; Negative Rash or Jaundice
Neurological: Negative Awake
Objective Data
Lab Data
Lab Results
07/19/24 04:47
07/19/24 04:47
Estimated Creat Clear 38 ml/min 07/19/24 04:47
Total Bilirubin 0.3 mg/dl (0.2-1.3) 07/17/24 04:14
AST 17 U/L (17-59) 07/17/24 04:14
ALT 11 U/L (0-50) 07/17/24 04:14
Alkaline Phosphatase 92 U/L (38-126) 07/17/24 04:14
Most recent labs reviewed.
Micro Results:
07/15/24 09:20 Anaerobic Culture - Preliminary
Abscess NO ANAEROBES ISOLATED
07/15/24 09:20 Wound Culture - Preliminary
Abscess No growth
Gram Stain - Preliminary
07/09/24 15:26 Influenza Types A & B (MARY) - Final
Nasal Swab Negative for Influenza A & B, NAAT
Negative results must be combined with clinical observations
and patient history.
Nucleic Acid Amplification test (NAAT)performed on the
[employer] platform.
07/02/24 13:56 Urine Culture - Final
Urine Escherichia coli
07/02/24 22:19 MRSA Screen - Final
Nose No Methicillin Resistant Staphylococcus aureus isolated.
Pelvis MRI-07/10/2024 -
1.8 x 1.3 x 1.1 cm peripherally enhancing, T2 hyperintense focus within the posterior lateral right peripheral zone in the mid/apical aspect of the gland which is most likely likely an abscess. This appears to correlate with the abnormality seen on
recent ultrasound. Mild BPH changes.
There are numerous diverticuli along the posterior aspect of the urinary bladder which measure up to 2.4 cm. There is additional prominent trabeculations of the urinary bladder. Findings are likely sequelae of chronic outlet obstruction.
Chest x-ray-07/09/2024-
Interval increase in reticulonodular more confluent areas of parenchymal opacity within both lungs greater on the left compared to the right appearance is highly suggestive of bilateral pneumonia.
Prostate ultrasound-07/05/2024-
1.4 cm focal hypoechoic lesion in the right mid peripheral zone of the prostate gland. Diagnostic possibilities include 1 abscess given the history of prostatitis 2 complex cyst [address]-07/03/2024-
Left upper lobe mass compatible with carcinoma. Since prior CT of November 26, 2023, evidence for interval increase of extension of the mass into the left side of the mediastinum.
Nodular parenchymal opacities within both lower lobes have increased compared to prior CT examination, morphologic appearance most suggestive of pneumonia.
Interval improvement in reticulonodular and ground glass opacities within both upper lungs, mainly within the upper lobes, suggesting improvement in pneumonia and/or lymphangitic spread of carcinoma.
Minimal bilateral posterior pleural effusions.
Chest x-ray-07/02/2024-
Again seen are diffusely increased interstitial opacities bilaterally with more confluent appearance within the left apical and basilar segments. No new areas of airspace disease. No pleural effusions or pneumothorax.
Care Review
Plan reviewed with: Physician (Dr Brantley)
--- NOTE | 2024-07-19 13:00 | CM ---
Family meeting again today. Patient family requesting Hospice and referral sent to [facility] hospice. Patient aggitated and confused. Plan for transfer to home with hospice tuesday. Patient will need ambulance transportation due to ortho issues and
confusion. CM will continue to follow for discharge planning needs.
Plan; home with [facility] hospice tuesday
[2024-07-19] MEDS: ProAmatine 5 MG PO ×2 (13:38→17:23)
--- NOTE | 2024-07-19 13:56 | W.PN.PUL3 ---
Today's Communication / Plan
-
Continue oxygen supplementation
Supportive care
Prednisone taper, recommend over the next 2 weeks.
Antibiotics
Focus on comfort
Patient to be discharged on hospice on Tuesday
Will follow peripherally. Please call with questions
Assessment
-
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 He was also hypoxic at the [facility]. He was
found to have a UTI and was admitted to the hospitalist service and started on antibiotics. ID consulted and a transrectal prostate ultrasound was performed on 07/05/2024 showing a 1.4 cm focal hypoechoic lesion in the right mid peripheral zone of
the prostate gland. Subsequent pelvic MRI on 07/10/2024 showed concern for a prostate abscess. Urology consulted and he is now awaiting either percutaneous drainage via IR versus surgery. He has remained on oxygen throughout this hospital course
with worsening O2 requirements since the evening of 07/09. Pulmonary service now consulted for preoperative stratification for prostate drainage of suspected abscess.
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
former tobacco smoker, hypertension, hyperlipidemia, DM type II, BPH, RBBB, PVD s/p vein stripping + fem bypass (2019), bilateral CEA, CKD, history of aortic aneurysm
Impression:
#Sepsis without shock due to right-sided prostate abscess, UTI + pneumonia
#Suspected bilateral pneumonia vs post-obstructive MICHEAL PNA in setting of bilateral lymphangitic carcinomatosis; component of aspiration pneumonia is suspected
#Mediastinal lymphadenopathy seen on CT chest from 07/03/2024, likely due to known MICHEAL lung cancer
#Recurrent UTI/bacterial prostatitis due to E. coli (R=cipro)
#Hx of MICHEAL NSCLC (SCC) with recurrence with Hx of SBRT (11/2022) and chemoimmunotherapy with keytra, carbo/taxol
#Acute respiratory failure with hypoxia on supplemental oxygen due to above
#Anemia (baseline Hb 8-10g/dL)
#Hypereosinophilic syndrome
#Hypochloremic, hyponatremia
#CKD (baseline Cr 1.3)
#DM type II c/b hyperglycemia (HbA1c: 8 on 07/03/2024)
#Hypoalbuminemia due to poor nutritional status
#Orthostatic hypotension
#COPD/emphysema not on inhalers as an outpatient
#Former tobacco smoker
Plan/recs
Hypoxemia. Worsening overnight, remains on 6 L, 94%-respiratory still remains tenuous.
Repeat CT chest 07/19/2024: Showed worsening of interstitial changes. Left upper lobe lung mass present. Mild bilateral pleural effusions.
-
Based on above CAT scan suspect ongoing aspiration.
VSE c/w gross aspiration with thin liquid barium with straw. I reviewed with patient that this significantly increases his risk of aspiration
-
Patient has developed delirium: Evaluated by psychiatry-he was deemed able to make his own decisions.
and patient have decided to institute DNR order.
Hospice care has evaluated the patient and the plan is for discharge on Tuesday on hospice care.
From the pulmonary perspective:
Continue oxygen for mentation to maintain pulse ox above 90%. Currently 5-6 L
Continue aspiration precaution
-
Multifactorial causes of progressive interstitial process, nodular disease
Progressive metastatic cancer, lymphangitic spread, chemotherapy induced pneumonitis, aspiration pneumonitis, radiation pneumonitis
With the above, I do not see him improving especially given that he has been on broad-spectrum antibiotics and steroids throughout hospital stay without any clear improvement from a pulmonary standpoint
-
Peripheral eosinophilia noted-unclear etiology possibly medication induced.
Peripheral eosinophilia could be also from malignant progression.
Infectious disease correspondence reviewed: ANCA antibody and Aspergillus antibodies were sent.
Started on prednisone. Eosinophils now within normal limits on prednisone, on steroids. Will consider slow taper going forward.
IgE level greater than 14k
Now patient is going on hospice on Tuesday.
Infectious disease following
Antibiotics continue for aspiration pneumonia and prostatitis-continue doxycycline
Completed 7 days of ertapenem-for aspiration pneumonia.
Prostatic abscess
Urology following-correspondence reviewed
Tolerated 07/15/2024 surgery well with spinal anesthesia and sedation
Status post TUR unroofing of prostatic abscess, TURP and complicated catheter placement over guidewire due to posterior pocket from resected abscess cavity 07/15/2024
Orthostatic hypotension: Very limiting. Able to perform physical therapy.
Management deferred to primary team.
Cosyntropin stim test noted
Flomax discontinue
Continues on midodrine and Florinef
Cardiology following-correspondence reviewed
Diuresis as tolerated
Lung cancer likely with [id number] with me in the outpatient setting.
Now on Hospice.
Continue to follow-up with oncology after discharge.
DVT prophylaxis-on Eliquis.
Patient moving towards hospice and discharged on Tuesday.
DNR status.
-
I will continue to follow peripherally given hospice status.

Data:
Pelvis MRI w + w/o contrast 07/10/2024:
1.8 x 1.3 x 1.1 cm peripherally enhancing, T2 hyperintense focus within the posterior lateral right peripheral zone in the mid/apical aspect of the gland which is most likely likely an abscess. This appears to correlate with the abnormality seen on
recent ultrasound.
Mild BPH changes.
There are numerous diverticuli along the posterior aspect of the urinary bladder which measure up to 2.4 cm. There is additional prominent trabeculations of the urinary bladder. Findings are likely sequelae of chronic outlet obstruction.
[place] diverticulosis.
CT Chest w/o contrast 07/03/2024:
Left upper lobe mass compatible with carcinoma. Since prior CT of November 26, 2023, evidence for interval increase of extension of the mass into the left side of the mediastinum.
Nodular parenchymal opacities within both lower lobes have increased compared to prior CT examination, morphologic appearance most suggestive of pneumonia.
Interval improvement in reticulonodular and groundglass opacities within both upper lungs, mainly within the upper lobes, suggesting improvement in pneumonia and/or lymphangitic spread of carcinoma.
Minimal bilateral posterior pleural effusions.
Total time spent today was 77 minutes for this encounter. Time includes reviewing laboratory test/imaging results, reviewing pertinent medical records, obtaining and reviewing medical history, performing an appropriate exam, ordering medications,
tests and procedures. Time also includes documentation of this encounter, coordinating patient care and communicating with other healthcare professionals. Total time does not include separately billed tests performed on this date of service.
Subjective Data
-
Date of Service:
Date of Service: July 19, 2024
Chief Complaint: Pulmonary Follow Up and Dyspnea Follow Up
Subjective:
Patient with delirium, earlier confused and agitated
Follow simple commands
Continues to report dizziness with sitting or standing position.
Intermittent coughing.
Review of Systems
General: Fever (n)
Cardiopulmonary: Dyspnea, Dyspnea on Exertion and Cough
Neuro: Dizziness
Objective Data
Data Reviewed
Vital Signs / I&O / Oxygen:
Vital Signs
Temp Pulse Resp BP Pulse Ox
97.6 F 79 18 129/57 92
07/19/24 06:46 07/19/24 13:38 07/19/24 06:46 07/19/24 13:38 07/19/24 08:06
Intake and Output
07/18/24 07/19/24 07/20/24
06:59 06:59 06:59
Intake Total 1080 / 1080 0 / 0
Output Total 3550 / 3550 2350 / 2350
Balance -2470 / -2470 -2350 / -2350
SaO2 92
Nasal Cannula flow liters per 5
minute
Physical Exam
General: Comfortable
HEENT: Normocephalic, Anicteric and Other (Dry mucosa)
Cardiovascular: S1-S2, Regular Rhythm, Murmur (n) and Rub (n)
Respiratory: Wheeze (n), Crackles (Few at base, left greater than right), Non-Labored Respirations and Stridor (n)
GI: Soft, Non Distended and Non Tender
Neurology: Awake, Alert, No Motor Deficits (Generally weak) and Other (Patient is confused, thinks he needs to go to [facility])
Skin: Warm, Good Color, Cyanosis (n) and Jaundice (n)
Labs/Micro/Reports
Lab Data
07/19/24 04:47
07/19/24 04:47
Microbiology
07/15/24 09:20 Abscess Anaerobic Culture - Preliminary
NO ANAEROBES ISOLATED
07/15/24 09:20 Abscess Wound Culture - Preliminary
No growth
07/15/24 09:20 Abscess Gram Stain - Preliminary
--- NOTE | 2024-07-19 14:31 | PTOTSP ---
CHART REVIEWED AND SPOKE WITH RN. PER NOTES FROM CASE MANAGEMENT AND HOSPICE, PATIENT TO BE TRANSFERRED TO HOME ON HOSPICE ON TUESDAY. WILL DISCHARGE FROM SKILLED P.T. SERVICES AT THIS TIME.
[2024-07-19 15:45] VITALS: BP 142/70
--- NOTE | 2024-07-19 15:57 | PTCARENOTE ---
Pt awake and alert, oriented to self/birthdate/year; confused conversation; pt states he is 'in a hotel'. Speech mumbled at times. CHUA slowly; weakly; assists w/positioning. VSS. On nc 5 lpm- pulse ox 92%, pt still c/o slight HUERTA; occ
non-productive cough. Abd soft, rounded, kelsey PO; appetite good. Sloan P/I mod amts clear yellow urine. Resting in bed at present. Will continue to monitor.
[2024-07-19 16:45] LABS: Glucose - Point of Care 278 mg/dl (70-99)
[2024-07-19] MEDS: FLORASTOR PO ×2 (21:23→22:31)
[2024-07-19] MEDS: VIBRAMYCIN PO ×2 (21:23→22:31)
[2024-07-19] MEDS: ELIQUIS PO ×2 (21:23→22:30)
[2024-07-19] MEDS: TYLENOL PO ×2 (21:23→22:31)
[2024-07-19 21:30] LABS: Glucose - Point of Care 327 mg/dl (70-99)
[2024-07-19] MEDS: LANTUS 0.1 UNITS SC (21:32)
[2024-07-19] MEDS: NOVOLOG FLEXPEN 4 UNITS SC (21:44)
[2024-07-19 23:00] VITALS: BP 169/81
[2024-07-20 00:10] LABS: Glucose - Point of Care 319 mg/dl (70-99)
[2024-07-20] MEDS: NOVOLOG FLEXPEN 4 UNITS SC (00:31)
[2024-07-20] MEDS: RISPERDAL M-TAB (ORALLY DISINTEGRATING) 0.5 MG PO (02:27)
[2024-07-20 02:40] LABS: Glucose - Point of Care 192 mg/dl (70-99)
[2024-07-20 05:53] VITALS: BMI 27.6
[2024-07-20 07:50] VITALS: BP 159/83
--- NOTE | 2024-07-20 07:50 | W.PN.HOSP.TC ---
Addendum entered and electronically signed by Jonas Kohler MD 07/20/24 14:05:
I saw and evaluated the patient. I reviewed the resident�s note and agree with findings and plan as documented in the resident�s note.
Patient does not offer new complaints.
Gen: NAD, Awake and alert, appears chronically ill
Eyes: EOMI, PERRLA, no scleral icterus.
Neck: supple.
CV: RRR, +S1/S2
Resp: CTAB anteriorly, no rales, wheezes, or rhonchi.
Neuro: CN 2-12 intact, non-focal.
Psych: Normal mood and affect.
Acute hypoxemic respiratory failure:
-likely from progression of lung cancer
-CT chest 07/19/2024: Progressive heterogeneous coarse irregular interlobular interstitial thickening and associated patchy airspace opacity in the 16 day interval since prior examination. Also noted are trace bilateral pleural effusions and
moderate cardiomegaly. Findings could be related to congestive heart failure in the proper clinical setting. Otherwise, consider infectious etiology given the short-term progression. Air trapping. No bronchiectasis or pneumothorax. Interval
improvement in mild mediastinal adenopathy. Persistent pleural-based mass in the medial left apex. Interval improvement in previously noted adjacent pulmonary consolidation.
-currently on 5L NC O2
Sepsis due to recurrent E. coli prostatitis and UTI:
-was on multiple antibiotics earlier during hospitalization, now on doxycycline for 6 weeks as per ID
-w/u revealed prostate , s/p TURP with unroofing of abscess by Uro
Severe Orthostatic hypotension with generalized weakness/fall:
-cannot use TEDS due to leg grafts
-cont abdominal binder
-cosyntropin STIM test without adrenal insufficiency
-ranexa and flomax stopped
-midodrine and florinef started
-unable to stabilize/correct orthostasis and pt cannot stand to even evaluate that aspect
Relapsing Eosinophilia:
-most likely due to malignancy but could possibly due to cephalosporins, less likely amiodarone which he has been off of since last admission
-previously felt eosinophilia relapsing prior to restarting keytruda based on outpatient records
-IgE levels markedly elevated
-ID started prednisone, which continues
Other problems:
Aspiration pneumonia suspected, see by speech
Anemia of chronic disease
CKD3b
DM2: cont Lantus/SSI/accuchecks
SCLC: s/p SBRT, completed carbo/taxol 04/17/2024, was on Keytruda
Chronic HFpEF: holding torsemide/Ranexa due to orthostatic hypotension
Paroxysmal AFib: cont Eliquis
CAD s/p CABG: cont ASA/Plavix/statin
BPH: cont finasteride
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
HLD: Continue Crestor
DNR/DNI/eliquis
Discharge to hospice tomorrow.
Original Note:
Today's Communication/Plan
-
d/c on Home Hospice tomorrow
Assessment / Plan
Assessment / Plan
After discussion with family, plan is for home hospice on Tuesday.
Assessment/Plan
# Acute hypoxemic respiratory failure likely from progression of lung cancer
-Patient currently on 6L, wean as tolerated. decrease to 5L today. Keep 02 88-90%
-CT chest 07/03/2024 with interval increase of extension of the mass into the left side of the mediastinum
-Oncology following. Will likely obtain outpatient PET to assess status
-Per oncology, further treatment of lung cancer TBD
-Repeat CXR 07/17 Unchanged left upper lung mass. Unchanged bilateral patchy airspace consolidation, left worse than right. Minimal left effusion.
-Repeat CT chest 07/20-Progressive heterogeneous coarse irregular interlobular interstitial thickening and associated patchy airspace opacity in the 16 day interval since prior examination. Also noted are trace bilateral pleural effusions and
moderate cardiomegaly.
# Recurrent prostatitis
# E. coli UTI
-Doxycycline for 6 weeks for prostatitis
-ID following
# Sepsis secondary to right-sided prostate abscess
prostate ultrasound 07/05/2024 noted 1.4 cm focal hypoechoic lesion in the right mid peripheral zone of the prostate gland.
Pelvic MRI 07/10/2024 1.8 x 1.3 x 1.1 cm peripherally enhancing focus within the posterior lateral right peripheral zone in the mid/apical aspect of the gland which is most likely likely an abscess.
IR was consulted for aspiration, they deemed not easily accessible hence would not proceed
-Urology following.
-s/p TUR unroofing of prostatic abscess + TURP on Sunday 07/15
#Aspiration pneumonia suspected
-Chest x-ray 07/09/2024 increase in reticulonodular more confluent areas of parenchymal opacity within both lungs, greater on the left compared to the right. The appearance is highly suggestive of bilateral pneumonia.
-ID input appreciated,
-Completed ertapenem
-VSE 07/17 with Airway aspiration noted with thin liquids by straw. Speech evaluated. Recommending Regular solids/thin liquids. Aspiration precautions: single cup sips only (no straws), sit upright, slow rate
-Repeat CXR 07/17 Unchanged left upper lung mass. Unchanged bilateral patchy airspace consolidation, left worse than right. Minimal left effusion.
# generalized weakness/fall
# Orthostatic hypotension
-Continue midodrine/Florinef for orthostasis
-cont abdominal binder
-PT/OT recc SNF
-cosyntropin STIM test without adrenal insufficiency
-Flomax and Ranexa stopped without improvement in orthostasis
-On Prednisone 60mg QD started 07/16
# Relapsing Eosinophilia
-follow eosinophilia, possibly due to cephalosporins, less likely amiodarone which he has been off of since last admission, previously felt eosinophilia relapsing prior to restarting keytruda based on outpatient records
-Completed ertapenem. Now on prednisone 60mg PO Qday.
-ID input appreciated
# anemia of chronic disease
-Stable hemoglobin with no evidence of bleeding
-Monitor hemoglobin level
# CKD stage 3b
baseline 1.4
# Type 2 DM
-cover with sliding scale
-Lantus 10 u HS
# Lung cancer of left lobe, squamous cell carcinoma
Primary oncologist is Dr. Shin
s/p SBRT, completed carbo/taxol 04/17/2024, was on Keytruda
# Chronic diastolic congestive heart failure
-holding torsemide
-Off Ranexa due to orthostatic hypotension
# Paroxysmal AFib
# CAD s/p CABG KINCAID-LAD 04/2015. PCI LM and LCX 06/2015; 09/2022 post cath with patent KINCAID to LAD and stent and no new obstructive CAD
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
-Eliquis 2.5 mg twice daily, Plavix 75 mg daily
-apprec cards
# BPH
Off Flomax due to orthostatic hypotension
cont finasteride
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
# Hypercholesterolemia
Continue Crestor
DVT ppx: Eliquis
Code Status: DNR
Anticipated Discharge: Within 24 hours
Subjective/Interval History
-
Patient seen and examined at bedside. Overnight event, patient agitated and confused. At bedside today, patient still confused.
Objective Data
-
Vital Signs:
Vital Signs
Temp Pulse Resp BP Pulse Ox
97.6 F 68 22 169/81 93
07/19/24 23:00 07/19/24 23:00 07/19/24 23:00 07/19/24 23:00 07/19/24 23:00
I&O
07/19/24 07/20/24 07/21/24
06:59 06:59 06:59
Intake Total 0 / 0 980 / 980
Output Total 2350 / 2350 1200 / 1200
Balance -2350 / -2350 -220 / -220
Review of Systems
-
Unable to obtain full review of systems at this time due to: Other (confusion)
Physical Exam
-
General: Appears Chronically Ill
Cardiac: Regular Rhythm and S1/S2
GI: Soft, Nontender and Nondistended
Neuro: Awake
Psych: Confused
[2024-07-20 08:05] LABS: Glucose - Point of Care 135 mg/dl (70-99)
[2024-07-20] MEDS: NOVOLOG FLEXPEN-LOW RESISTANCE SC (08:11)
--- NOTE | 2024-07-20 08:57 | W.PN.ONC ---
Today's Communication / Plan
-
Patient is going on hospice on 07/21/2024.
Given hospice status, will follow along peripherally. Patient will follow up with his oncologist in the outpatient setting.
Impression
Impression
83-year-old male with past medical history of squamous cell carcinoma of the left upper lobe living in [place] presented with weakness and hypoxia. Noted to have UTI on admission. Prostate ultrasound showed 1.4 cm focal hypoechoic lesion in
the right mid peripheral zone of the prostate gland and pelvic MRI showed prostate abscess. Urology consulted and surgery performed 07/15/2024. Patient has history of pneumonitis attributed to Keytruda and hypereosinophilia responsive to steroids on
prior admission dated April 2024. This admission, patient was again noted to have hypereosinophilia and elevated IgE levels (>14k). He was started on high-dose steroids, which is now resolved. Chest CT 07/03/2024 showed evidence for interval
increase of extension of the mass into the left side of the mediastinum since prior chest CT performed November 2023.
Patient is going on hospice on 07/21/2024.
#recurrent UTI/prostatitis, urosepsis
- Continue antibiotic therapy
- Leukocytosis downtrending
#Prostate Abscess
- status post surgery, will need outpatient follow-up for TOV in 7 days
- Leukocytosis downtrending
- Cultures no growth
#relapsed/recurrent lung cancer
- CT chest today today shows progressive heterogeneous coarse irregular interlobular septal tissue thickening and associated patchy airspace opacity since prior examination, bilateral pleural effusion and cardiomegaly, mediastinal adenopathy,
persistent pleural-based mass in the medial left apex.
- Follow-up with his oncologist in the outpatient setting.
# Pneumonia
- Likely multifactorial
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
- Completed ertapenem
- Leukocytosis downtrending
- History of pneumonitis attributed to Keytruda in October 2023
# Delirium
- Likely in the setting of sepsis, high-dose steroids
- Head CT no acute abnormality
# Eosinophilia
- Etiology unclear
- On high-dose steroids, can plan to taper
- Now resolved with addition of steroids
- ANCA MPO/LA-3 antibody pending
- Aspergillus antibodies pending
- History of hypereosinophilia on prior admissions
# Acute respiratory failure with hypoxia
- On 6 L of oxygen, O2 sat 94%
- Wean as able
# Atrial fibrillation
- Continue Eliquis
# Anemia
- Chronic
- Hemoglobin stable
Subjective/Objective
Subjective/Objective
Vital Signs:
Vital Signs
Temp Pulse Resp BP Pulse Ox
96.9 F L 71 20 159/83 95
07/20/24 07:50 07/20/24 07:50 07/20/24 07:50 07/20/24 07:50 07/20/24 07:50
Lab Results:
Laboratory Data
WBC 11.1 10^3/uL (4.8-10.8) H 07/19/24 04:47
Hgb 9.6 g/dL (13.0-18.0) L 07/19/24 04:47
Plt Count 351 10^3/uL (130-400) 07/19/24 04:47
eGFR 42.75 07/19/24 04:47
[2024-07-20] MEDS: DELTASONE 50 MG PO (09:03)
[2024-07-20] MEDS: DELTASONE 10 MG PO (09:03)
[2024-07-20] MEDS: FLORINEF 0.2 MG PO (09:10)
[2024-07-20] MEDS: ELIQUIS 2.5 MG PO ×2 (09:11→20:57)
[2024-07-20] MEDS: ProAmatine 5 MG PO (09:11)
[2024-07-20] MEDS: PEPCID 20 MG PO (09:11)
[2024-07-20] MEDS: VIBRAMYCIN 100 MG PO ×2 (09:12→20:57)
[2024-07-20] MEDS: PROSCAR 5 MG PO (09:12)
[2024-07-20] MEDS: FLORASTOR 250 MG PO ×2 (09:12→20:57)
[2024-07-20] MEDS: VISBIOME 1 CAP PO (09:13)
[2024-07-20] MEDS: TYLENOL 650 MG PO ×2 (09:13→20:57)
[2024-07-20] MEDS: DESENEX/MITRAZOL/ZEASORB 1 APPLIC TOPICAL ×2 (09:15→20:57)
[2024-07-20] MEDS: COLACE PO (09:15)
[2024-07-20] MEDS: ASPIR LOW (ENTERIC COATED) 81 MG PO (09:15)
[2024-07-20] MEDS: CRESTOR 5 MG PO (09:15)
--- NOTE | 2024-07-20 11:55 | CM ---
Addendum entered by Kandy Coughlin 07/20/24 14:19:
patient son phone number per [phone] email [email or web address]
Original Note:
Patient seen at bedside. Plan for discharge tomorrow with [facility]. CM spoke with patient , approx 2 steps to enter home. ambulance set up for tomorrow 07/20/24. Transportation forms and out of hospital DNR on chart. Reviewed with [facility]
and called to patient son Maurice to review and email form. No answer. will try again. CM will continue to follow for discharge planning needs.
Plan; home with [facility] hosp[facility] tomorrow
[2024-07-20 12:27] LABS: Glucose - Point of Care 233 mg/dl (70-99)
[2024-07-20] MEDS: NOVOLOG FLEXPEN-LOW RESISTANCE 2 UNITS SC (12:37)
[2024-07-20] MEDS: ProAmatine PO ×2 (14:43→16:44)
[2024-07-20 15:20] VITALS: BP 177/83
[2024-07-20 16:46] LABS: Glucose - Point of Care 309 mg/dl (70-99)
[2024-07-20] MEDS: NOVOLOG FLEXPEN-LOW RESISTANCE 4 UNITS SC (16:48)
[2024-07-20] MEDS: TYLENOL PO (16:59)
[2024-07-20] MEDS: LANTUS 0.1 UNITS SC (20:56)
[2024-07-20] MEDS: RISPERDAL 0.5 MG PO (20:57)
[2024-07-20 20:58] LABS: Glucose - Point of Care 231 mg/dl (70-99)
[2024-07-20 23:38] VITALS: BP 169/86
[2024-07-21] MEDS: RISPERDAL PO (04:20)
[2024-07-21 06:00] VITALS: BMI 27.8
[2024-07-21 07:32] VITALS: BP 152/77
[2024-07-21 08:00] LABS: Glucose - Point of Care 125 mg/dl (70-99)
--- NOTE | 2024-07-21 08:48 | W.PN.HOSP.TC ---
Addendum entered and electronically signed by Jonas Kohler MD 07/21/24 09:57:
saw and evaluated the patient. I reviewed the resident�s note and agree with findings and plan as documented in the resident�s note.
Patient does not offer new complaints.
Gen: remains NAD, Awake and alert, appears chronically ill
Eyes: EOMI, PERRLA, no scleral icterus.
Neck: supple.
CV: remains RRR, +S1/S2
Resp: remains CTAB anteriorly, no rales, wheezes, or rhonchi.
Neuro: CN 2-12 intact, non-focal.
Psych: Normal mood and affect.
Acute hypoxemic respiratory failure:
-likely from progression of lung cancer
-CT chest 07/19/2024: Progressive heterogeneous coarse irregular interlobular interstitial thickening and associated patchy airspace opacity in the 16 day interval since prior examination. Also noted are trace bilateral pleural effusions and
moderate cardiomegaly. Findings could be related to congestive heart failure in the proper clinical setting. Otherwise, consider infectious etiology given the short-term progression. Air trapping. No bronchiectasis or pneumothorax. Interval
improvement in mild mediastinal adenopathy. Persistent pleural-based mass in the medial left apex. Interval improvement in previously noted adjacent pulmonary consolidation.
-currently on 4L NC O2
Sepsis due to recurrent E. coli prostatitis and UTI:
-was on multiple antibiotics earlier during hospitalization, now on doxycycline for 6 weeks as per ID
-w/u revealed prostate, s/p TURP with unroofing of abscess by Uro
Severe Orthostatic hypotension with generalized weakness/fall:
-cannot use TEDS due to leg grafts
-cont abdominal binder
-cosyntropin STIM test without adrenal insufficiency
-ranexa and flomax stopped
-midodrine and florinef started
-unable to stabilize/correct orthostasis and pt cannot stand to even evaluate that aspect
Relapsing Eosinophilia:
-most likely due to malignancy but could possibly due to cephalosporins, less likely amiodarone which he has been off of since last admission
-previously felt eosinophilia relapsing prior to restarting keytruda based on outpatient records
-IgE levels markedly elevated
-ID started prednisone, which continues
Other problems:
Aspiration pneumonia suspected, see by speech
Anemia of chronic disease
CKD3b
DM2: cont Lantus/SSI/accuchecks
SCLC: s/p SBRT, completed carbo/taxol 04/17/2024, was on Keytruda
Chronic HFpEF: holding torsemide/Ranexa due to orthostatic hypotension
Paroxysmal AFib: cont Eliquis
CAD s/p CABG: cont ASA/Plavix/statin
BPH: cont finasteride
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
HLD: Continue Crestor
DNR/DNI/eliquis
Discharge to hospice today.
Total time spent on d/c = 31 min. This included today's physical exam, progress note, review of laboratory and diagnostic data, preparation of discharge documents and prescriptions, and discussions about the pt's hospital course and discharge plan
with the patient and other senior medical writer involved in the patient's care.
Original Note:
Today's Communication/Plan
-
Discharge to hospice
Assessment / Plan
Assessment / Plan
Assessment/Plan
# Acute hypoxemic respiratory failure likely from progression of lung cancer
-Patient currently on 6L, wean as tolerated. decrease to 5L today. Keep 02 88-90%
-CT chest 07/03/2024 with interval increase of extension of the mass into the left side of the mediastinum
-Oncology following. Will likely obtain outpatient PET to assess status
-Per oncology, further treatment of lung cancer TBD
-Repeat CXR 07/17 Unchanged left upper lung mass. Unchanged bilateral patchy airspace consolidation, left worse than right. Minimal left effusion.
-Repeat CT chest 07/20-Progressive heterogeneous coarse irregular interlobular interstitial thickening and associated patchy airspace opacity in the 16 day interval since prior examination. Also noted are trace bilateral pleural effusions and
moderate cardiomegaly.
# Recurrent prostatitis
# E. coli UTI
-Doxycycline for 6 weeks for prostatitis
-ID following
# Sepsis secondary to right-sided prostate abscess
prostate ultrasound 07/05/2024 noted 1.4 cm focal hypoechoic lesion in the right mid peripheral zone of the prostate gland.
Pelvic MRI 07/10/2024 1.8 x 1.3 x 1.1 cm peripherally enhancing focus within the posterior lateral right peripheral zone in the mid/apical aspect of the gland which is most likely likely an abscess.
IR was consulted for aspiration, they deemed not easily accessible hence would not proceed
-Urology following.
-s/p TUR unroofing of prostatic abscess + TURP on Sunday 07/15
#Aspiration pneumonia suspected
-Chest x-ray 07/09/2024 increase in reticulonodular more confluent areas of parenchymal opacity within both lungs, greater on the left compared to the right. The appearance is highly suggestive of bilateral pneumonia.
-ID input appreciated,
-Completed ertapenem
-VSE 07/17 with Airway aspiration noted with thin liquids by straw. Speech evaluated. Recommending Regular solids/thin liquids. Aspiration precautions: single cup sips only (no straws), sit upright, slow rate
-Repeat CXR 07/17 Unchanged left upper lung mass. Unchanged bilateral patchy airspace consolidation, left worse than right. Minimal left effusion.
# generalized weakness/fall
# Orthostatic hypotension
-Continue midodrine/Florinef for orthostasis
-cont abdominal binder
-PT/OT recc SNF
-cosyntropin STIM test without adrenal insufficiency
-Flomax and Ranexa stopped without improvement in orthostasis
-On Prednisone 60mg QD started 07/16
# Relapsing Eosinophilia
-follow eosinophilia, possibly due to cephalosporins, less likely amiodarone which he has been off of since last admission, previously felt eosinophilia relapsing prior to restarting keytruda based on outpatient records
-Completed ertapenem. Now on prednisone 60mg PO Qday.
-ID input appreciated
# anemia of chronic disease
-Stable hemoglobin with no evidence of bleeding
-Monitor hemoglobin level
# CKD stage 3b
baseline 1.4
# Type 2 DM
-cover with sliding scale
-Lantus 10 u HS
# Lung cancer of left lobe, squamous cell carcinoma
Primary oncologist is Dr. Shin
s/p SBRT, completed carbo/taxol 04/17/2024, was on Keytruda
# Chronic diastolic congestive heart failure
-holding torsemide
-Off Ranexa due to orthostatic hypotension
# Paroxysmal AFib
# CAD s/p CABG KINCAID-LAD 04/2015. PCI LM and LCX 06/2015; 09/2022 post cath with patent KINCAID to LAD and stent and no new obstructive CAD
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
-Eliquis 2.5 mg twice daily, Plavix 75 mg daily
-apprec cards
# BPH
Off Flomax due to orthostatic hypotension
cont finasteride
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
# Hypercholesterolemia
Continue Crestor
DVT ppx: Eliquis
Code Status: DNR
Anticipated Discharge: Today
Subjective/Interval History
-
Date of Service: July 21, 2024
Objective Data
-
Vital Signs:
Vital Signs
Temp Pulse Resp BP Pulse Ox
97.4 F 66 22 152/77 92
07/21/24 07:32 07/21/24 07:32 07/21/24 07:32 07/21/24 07:32 07/21/24 07:32
I&O
07/20/24 07/21/24 07/22/24
06:59 06:59 06:59
Intake Total 980 / 980 480 / 480
Output Total 1200 / 1200 1800 / 1800
Balance -220 / -220 -1320 / -1320
Physical Exam
-
General: Appears Chronically Ill
Respiratory: Clear to Auscultation
Cardiac: S1/S2
GI: Soft, Nontender and Nondistended
Musculoskeletal: No Edema
Neuro: Awake
Psych: Confused
[2024-07-21] MEDS: NOVOLOG FLEXPEN-LOW RESISTANCE SC (09:03)
[2024-07-21] MEDS: DELTASONE 50 MG PO (09:05)
[2024-07-21] MEDS: VISBIOME 1 CAP PO (09:05)
[2024-07-21] MEDS: ProAmatine PO (09:05)
[2024-07-21] MEDS: PROSCAR 5 MG PO (09:05)
[2024-07-21] MEDS: ELIQUIS 2.5 MG PO (09:06)
[2024-07-21] MEDS: PEPCID 20 MG PO (09:06)
[2024-07-21] MEDS: VIBRAMYCIN 100 MG PO (09:06)
[2024-07-21] MEDS: FLORINEF 0.2 MG PO (09:06)
[2024-07-21] MEDS: DELTASONE 10 MG PO (09:06)
[2024-07-21] MEDS: ASPIR LOW (ENTERIC COATED) 81 MG PO (09:06)
[2024-07-21] MEDS: CRESTOR 5 MG PO (09:06)
[2024-07-21] MEDS: FLORASTOR 250 MG PO (09:06)
[2024-07-21] MEDS: TYLENOL 650 MG PO (09:07)
[2024-07-21] MEDS: COLACE 100 MG PO (09:07)
[2024-07-21] MEDS: DESENEX/MITRAZOL/ZEASORB 1 APPLIC TOPICAL (09:07)
--- NOTE | 2024-07-21 09:36 | W.DCSUMMARY ---
Addendum entered and electronically signed by Jonas Kohler MD 07/21/24 10:14:
Read, reviewed, and agree. See same day progress note for additional details.
Original Note:
Discharge Summary
Discharge Data
Date of Admission: 07/02/24
Date of Discharge: 07/21/24
Total time spent discharging patient (in min): 39
-
Pending Results: No
Hospital Course
This is an 83-year-old male with past medical history of relapsed/recurrent NSCLC, currently on Keytruda immunotherapy alone (after several cycles of chemo with carbo/taxol, last in March 2024), CHF, atrial fibrillation, CAD, carotid disease, chronic
orthostatic hypotension who presented to ED 07/02/2024 status post fall at the [facility]. In addition, he was noted to be hypoxic with oxygen saturation of 84% on room air. He was transported to ED. On presentation to ER, his blood
pressure was 93/53, O2 sat 96% requiring 4 L of oxygen, afebrile, with urinalysis suggesting UTI with greater than 100 WBC. Chest x-ray showed previously present diffusely increased interstitial opacities with confluent appearance in the left
apical/basilar segments. He was continued on [place] O2 for his hypoxia, started on antibiotics for E. coli UTI. While in the hospital, patient was still very orthostatic. Cosyntropin stimulation test did not show adrenal insufficiency. He was
continued on midodrine 3 times daily, abdominal binder, and Florinef was added to his regimen. Due to chronic bacterial prostatitis and recurrent E. coli infection, a prostate ultrasound was ordered to assess for stones. Ultrasound showed 1.4 cm
focal hypoechoic lesion in the right mid peripheral zone of the prostate gland. Urology was consulted for evaluation of patient. A pelvic MRI was ordered to evaluate the hypoechoic lesion. MRI showed 1.8 x 1.3 x 1.1 cm peripherally enhancing
focus within the posterior lateral right peripheral zone in the mid/apical aspect of the gland which is most likely likely an abscess. IR was consulted for aspiration and they deemed not easily accessible and the plan was for TUR unroofing of
prostatic abscess + TURP. Procedure was done 07/15 after Eliquis/Plavix washout. He was started on continuous bladder irrigation and a three-way catheter was placed. Despite abdominal binder, initiating midodrine and Florinef, discontinuing
Ranexa and Flomax, it was unable to stabilize/correct his orthostasis, and it got to a point where patient could not stand to even evaluate the aspect. His need for O2 continues to worsen, and he was eventually on 6 L of oxygen. It was difficult
to wean his oxygen down. Decision was made by pulmonary to evaluate CT chest. Repeat CT chest 07/20 showed progressive Progressive heterogeneous coarse irregular interlobular interstitial thickening and associated patchy airspace opacity.
Patient's overall status was worsening, he was hallucinating and was difficult to wean his O2 down. At a certain, point he became confused, although head CT was negative for acute findings. His family was contacted for goals of care discussion.
Goals of care discussion was done with patient and his family, given severe orthostatic hypotension and presumed progressive lung cancer, prostate abscess. During the discussion, patient appeared to be hallucinating at times, confused and
delusional. Psychiatry was consulted to evaluate for capacity to make decisions. After evaluation by psychiatry, it was determined patient was not competent to make medical decisions on his own behalf. Due to complexity of his medical condition,
his made him DNR/DNI. In addition, the decision was made for home hospice. He will be discharged today on home hospice.
Discharge Plan
-
Patient Disposition: Home with Hospice
Discharge Diagnosis/Procedures: Acute hypoxemic respiratory failure likely from progression of lung cancer
Lung cancer of left lobe, squamous cell carcinoma
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
Sepsis secondary to right-sided prostate abscess
Orthostatic hypotension
generalized weakness
Relapsing Eosinophilia
CKD stage 3b
BPH
Condition: Critical
Diet: No restrictions
Other Services: Hospice
Activity Restrictions/Additional Instructions:
Wound Care Instructions
Buttocks: clean with soap and water, silicone foam change q 3 days and prn soilage
L&R great toe: silicone foam or band aid change q 3 days and prn soilage
Air cushion when sitting, can take upon discharge
frequent turning when in bed.
Follow up with [facility] or at wound care center call for an appointment.
Referrals:
Felecia Lan CRNP [Specified Professional Personl] - 08/09/24 3:00 pm (You have a follow up visit with Dr. Blackburn's INTERIOR SPECIALIST, Felecia Lan, at the [facility]. Please call with questions. )
Rodrigo Villa, [Family Provider] -
Dee Ladd CRNP [Specified Professional Personl] - in three to four weeks
Prescriptions:
Continued
tamsulosin 0.4 mg Capsule
0.4 mg PO DAILY
azelastine 137 mcg (0.1 %) Aerosol,[place]
1 spray INTRANASAL BIDPRN PRN (Reason: congestion)
Eliquis 2.5 mg Tablet
2.5 mg PO BID Qty: 60 0RF
psyllium Packet
1 packet PO HS
clopidogrel 75 mg Tablet
75 mg PO DAILY
Mucinex DM 30-600 mg Tablet Extended Release 12 Hr
1 tab PO [id number] PRN (Reason: congestion) Qty: 0
Ultimate Mena Probiotic 30 billion cell Capsule,Delayed Release(Dr/Ec)
1 cap PO DAILY
acetaminophen [Tylenol] 325 mg Tablet
650 mg PO Q4HPRN PRN (Reason: mild pain)
ammonium lactate 12 % Lotion
1 applic TOPICAL DAILYPRN PRN (Reason: B/L legs)
triamcinolone acetonide 0.1 % Ointment
1 applic TOPICAL BIDPRN PRN (Reason: rash on buttocks)
finasteride 5 mg Tablet
5 mg PO DAILY Qty: 30 0RF
acetaminophen [Tylenol Extra Strength] 500 mg Tablet
500 mg PO TID
methenamine hippurate [Hiprex] 1 gram Tablet
1 g PO DAILY
magnesium hydroxide [Milk of Magnesia] 400 mg/5 mL Suspension
2,400 mg PO DAILYPRN PRN (Reason: IF NO BM IN 2/3 DAYS)
insulin aspart U-100 100 unit/mL Solution
10 sliding scale dose SC AC
Rx Instructions:
251-300=4U, 301-350=6U, 351-400=8U
bisacodyl [Dulcolax (bisacodyl)] 10 mg Suppository
10 mg DC DAILYPRN PRN (Reason: IF NO BM AFTR MOM)
Fleet Enema 19-7 gram/118 mL Enema
118 ml DC DAILYPRN PRN (Reason: IF NO BM AFTR DULCOLAX)
docusate sodium [Colace] 100 mg Capsule
100 mg PO DAILY
mupirocin 2 % Ointment
1 applic TOPICAL DAILY
midodrine 10 mg Tablet
10 mg PO TID
rosuvastatin [Crestor] 5 mg Tablet
5 mg PO DAILY
Saccharomyces boulardii [Florastor] 250 mg Capsule
250 mg PO BID
ranolazine 500 mg Tablet Extended Release 12 Hr
500 mg PO BID
coQ10 (ubiquinol) 100 mg Capsule
100 mg PO DAILY
torsemide 20 mg tablet
10 mg PO DAILYPRN PRN (Reason: WEIGHT GAIN)
insulin glargine [Lantus Solostar U-100 Insulin] 100 unit/mL (3 mL) insulin pen
10 unit SC DAILY@1900
Discharge Orders:
Discharge Patient (As Directed); Ordered 07/21/24
Ordered By: Grace Tyler
Discharge Date and Time
Print Language: ANGUILLAN
[2024-07-21] MEDS: HALDOL 1 MG IM (10:20)
[2024-07-21 11:11] LABS: Myeloperoxidase Antibody 0 AU/mL (0-19); Serine Protease-3, IgG 0 AU/mL (0-19)
--- NOTE | 2024-07-21 11:21 | CM ---
Patient discharged today to home with Hospice.
Ambulance transportation at 10am.
PLAN: Discharged to home with hospice
Ambulance transportation at 10am
== END 2024-07-21 11:39 | disposition hospice, home (50) | DRG 853 ==
LOC: 4 EAST ACU 16:26
PROVIDERS: Internal Medicine; Internal Medicine Cardiovascular Disease; Nurse Practitioner; Registered Nurse; Student in an Organized Health Care Education/Training Program; Surgery; ADMITTING PHYSICIAN Hospitalist; ATTENDING PHYSICIAN Internal Medicine; CONSULT PHYSICIAN Internal Medicine Cardiovascular Disease; CONSULT PHYSICIAN Internal Medicine Critical Care Medicine; CONSULT PHYSICIAN Psychiatry & Neurology Psychiatry; CONSULT PHYSICIAN Student in an Organized Health Care Education/Training Program; EMERGENCY PHYSICIAN Emergency Medicine; FAMILY PHYSICIAN Family Medicine; OTHER PHYSICIAN Internal Medicine Hematology & Oncology
PROC: 0VT08ZZ Resection of Prostate, Via Natural or Artificial Opening Endoscopic (ICD-10-PCS; 2024-07-15)
DX: A41.9 Sepsis, unspecified organism (principal); K65.1 Peritoneal abscess; N39.0 Urinary tract infection, site not specified; I13.0 Hypertensive heart and chronic kidney disease with heart failure and stage 1 through stage 4 chronic kidney disease, or unspecified chronic kidney disease; I50.32 Chronic diastolic (congestive) heart failure; C34.12 Malignant neoplasm of upper lobe, left bronchus or lung; N41.2 Abscess of prostate; E87.1 Hypo-osmolality and hyponatremia; N41.1 Chronic prostatitis; B96.20 Unspecified Escherichia coli [E. coli] as the cause of diseases classified elsewhere; E11.22 Type 2 diabetes mellitus with diabetic chronic kidney disease; I48.0 Paroxysmal atrial fibrillation; N40.1 Benign prostatic hyperplasia with lower urinary tract symptoms; R33.8 Other retention of urine; G47.33 Obstructive sleep apnea (adult) (pediatric); I25.10 Atherosclerotic heart disease of native coronary artery without angina pectoris; L89.312 Pressure ulcer of right buttock, stage 2; N18.32 Chronic kidney disease, stage 3b; I95.1 Orthostatic hypotension; Z87.440 Personal history of urinary (tract) infections; Z79.4 Long term (current) use of insulin; Z79.82 Long term (current) use of aspirin; Z79.02 Long term (current) use of antithrombotics/antiplatelets; Z79.01 Long term (current) use of anticoagulants
CPT/HCPCS: 88305; 51701; 70450; 71045; 71046; 71250; 72197; 74230; 76872; 80048; 80053; 81003; 81015; 82040; 82248; 82533; 82785; 82962; 83036; 83516; 83735; 83880; 84100; 84155; 84484; 85025; 85027; 87070; 87075; 87086; 87088; 87186; 87205; 87502; 87811; 92610; 92611; 93005; 94640; 96361; 96374; 97110; 97163; 97167; 97530; 97535; 99285; A9575; G0103; J1335